=== PATIENT | male | born 1955 ===

== ENCOUNTER 2020-02-06 07:45 | Outpatient (REF) | payer OTHER, SELFPAY | END 2020-02-06 07:46 | disposition home or self-care (01) | LOC: HO.LAB 07:45 | PROVIDERS: PCP Internal Medicine; Visit Provider Internal Medicine | DX: Z20.828 Contact with and (suspected) exposure to other viral communicable diseases (principal) | CPT/HCPCS: 87635 ==

== ENCOUNTER → 2020-03-02 11:57 | Outpatient (BNVA) | payer OTHER, SELFPAY | PROVIDERS: PCP Internal Medicine; Referring Provider Internal Medicine; Visit Provider Internal Medicine | DX: I42.2 Other hypertrophic cardiomyopathy (principal); I48.0 Paroxysmal atrial fibrillation; I47.2 Ventricular tachycardia; I48.92 Unspecified atrial flutter; I10 Essential (primary) hypertension; Z86.73 Personal history of transient ischemic attack (TIA), and cerebral infarction without residual deficits; Z79.01 Long term (current) use of anticoagulants; Z45.02 Encounter for adjustment and management of automatic implantable cardiac defibrillator | CPT/HCPCS: 99212 ==

== ENCOUNTER 2020-03-20 09:42 | Outpatient (REF) | payer OTHER, SELFPAY ==
[2020-03-20 10:57] LABS: Prostate Specific Antigen 1.94 ng/mL (<0.05-4.0)
== END 2020-03-20 09:43 | disposition home or self-care (01) ==
LOC: HO.LAB 09:42
PROVIDERS: PCP Internal Medicine; Visit Provider Urology
DX: C61 Malignant neoplasm of prostate (principal)
CPT/HCPCS: 84153

== ENCOUNTER → 2020-04-03 10:04 | Outpatient (BNVA) | payer OTHER, SELFPAY | PROVIDERS: Visit Provider Urology | DX: Z76.89 Persons encountering health services in other specified circumstances (principal) ==

== ENCOUNTER → 2020-06-22 12:44 | Outpatient (BNVA) | payer OTHER, SELFPAY | PROVIDERS: PCP Internal Medicine; Visit Provider Internal Medicine | DX: I42.2 Other hypertrophic cardiomyopathy (principal); I47.2 Ventricular tachycardia; I48.92 Unspecified atrial flutter; I48.0 Paroxysmal atrial fibrillation; I10 Essential (primary) hypertension; Z98.890 Other specified postprocedural states; Z95.818 Presence of other cardiac implants and grafts; Z86.73 Personal history of transient ischemic attack (TIA), and cerebral infarction without residual deficits | CPT/HCPCS: 99212 ==

== ENCOUNTER 2020-07-01 11:42 | Outpatient (REF) | payer OTHER, SELFPAY ==
[2020-07-01 12:23] LABS: MANUAL DIFF FLAG NO
[2020-07-01 12:26] LABS: Basophils Absolute Auto 0.1 X10*3/uL (0.0-0.2); Basophils Percent Auto 0.9 % (0-2); Eosinophils Absolute Auto 0.3 X10*3/uL (0.0-0.4); Eosinophils Percent Auto 4.7 % (0-4); Hematocrit 45.6 % (42-52); Hemoglobin 14.8 g/dl (14.0-18.0); Imm Gran Abs Auto 0.01 X10*3/uL (0.00-0.03); Imm Gran Pct Auto 0.2 % (0.0-0.4); Lymphocytes Absolute Auto 1.5 X10*3/uL (1.2-4.9); Lymphocytes Percent Auto 25.8 % (20-40); Mean Corpuscular HGB Conc 32.5 g/dl (31.0-36.0); Mean Corpuscular Hemoglobin 30.2 pg (27.0-33.0); Mean Corpuscular Volume 93.1 fL (80-98); Mean Platelet Volume 10.6 fL (9.4-12.4); Monocytes Absolute Auto 0.6 X10*3/uL (0.1-1.2); Monocytes Percent Auto 9.8 % (2-11); Neutrophils Absolute Auto 3.4 X10*3/uL (2.0-8.3); Neutrophils Percent Auto 58.6 % (45-73); Platelet Count 204 X10*3/uL (160-400); Red Cell Distribution Width 13.2 % (11.0-16.0); White Blood Count 5.7 X10*3/uL (4.8-10.8)
[2020-07-01 13:16] LABS: Alanine Aminotransferase 26 U/L (0-40); Alkaline Phosphatase 55 U/L (39-117); Anion Gap 10 (12-20); Aspartate Amino Transferase 30 U/L (5-37); Bilirubin Total 1.3 mg/dL (0.0-1.0); Blood Urea Nitrogen 21 mg/dL (9-16); Calcium 9.2 mg/dL (8.4-10.2); Carbon Dioxide 27 mmol/L (22-29); Chloride 102 mmol/L (96-108); Cholesterol 177 mg/dL; Estimated Glomerular Filt Rate > 60; Glucose Fasting 94 mg/dL (60-99); HDL Cholesterol 54 mg/dL; LDL Cholesterol Calculated 108 mg/dl; Potassium 4.4 mmol/L (3.3-5.1); Sodium 135 mmol/L (135-145); Total Protein 7.3 g/dL (6.5-8.0); Triglycerides 77 mg/dL
[2020-07-01 13:36] LABS: Prostate Specific Antigen 1.44 ng/mL (<0.05-4.0)
== END 2020-07-01 11:43 | disposition home or self-care (01) ==
LOC: HO.LAB 11:42
PROVIDERS: PCP Internal Medicine; Visit Provider Urology
DX: I10 Essential (primary) hypertension (principal); R97.21 Rising PSA following treatment for malignant neoplasm of prostate; Z12.5 Encounter for screening for malignant neoplasm of prostate
CPT/HCPCS: 36415; 80053; 80061; 84153; 85025

== ENCOUNTER → 2020-07-10 11:33 | Outpatient (BNVA) | payer OTHER, SELFPAY | PROVIDERS: Visit Provider Urology ==

== ENCOUNTER → 2020-09-29 14:46 | Outpatient (REF) | payer OTHER, SELFPAY ==
--- NOTE | 2020-09-29 14:49 | CA_ITS ---
Transthoracic Echocardiogram Patient (Last, First, Middle): Andres Weiss C Gender: Male Date of : 1955 Age: 65 Procedure Date: 09/29/2020 Procedure Type: Transthoracic Echocardiogram Location: OP Height: 185.42 cm Weight: 147.42 kg BSA: 2.64 m2 Heart Rate: bpm BP: 132 / 88 mmHg Note Specialist: TRN Referring MD: Young Ramirez MD Symptoms: Z98.890 - Other specified postprocedural states Study Quality: Technically Difficult ECG Rhythm: Atrial Fibrillation Conclusions: - The left ventricular systolic function is normal. The visually estimated ejection fraction is between 60-65%. - There is mild septal asymmetric hypertrophy. - There is mild mitral valve regurgitation. Status post mitraclip placement; gradient across the mitral valve 8mmHg at 65/min; slightly elevated. - Mild pulmonary hypertension is present. Findings Left Ventricle Normal left ventricular cavity size. The left ventricular systolic function is normal. The visually estimated ejection fraction is between 60-65%. There is no evidence of regional wall motion abnormalities. Diastolic function is indeterminate on the basis of available data. There is mild septal asymmetric hypertrophy. Right Ventricle Mildly increased right ventricular cavity size. There is normal right ventricular systolic function. There is an ICD wire seen in the right ventricle. Atria The left atrium is severely dilated. The right atrium is mildly dilated. Aortic Valve There is a normal trileaflet aortic valve. There is mild calcification of the aortic valve. There is no aortic valve stenosis. There is no aortic valve regurgitation. Mitral Valve There is mild mitral valve regurgitation. Status post mitraclip placement; gradient across the mitral valve 8mmHg at 65/min; slightly elevated. Pulmonic Valve The pulmonic valve was not well visualized. Tricuspid Valve There is trace tricuspid valve regurgitation. Mild pulmonary hypertension is present. Great Vessels The aortic annulus, sinuses of valsalva, and asc aorta are normal in size. Venous The inferior vena cava is mildly dilated and collapses greater than 50% with inspiration. Pericardium/Pleural There is no evidence of pericardial effusion. Prior Study Comparison Changes noted compared to prior study dated: 02/15/2019. s/p monica-clip. Improved RVSP. Measurements M-Mode Liner Measurements Normals - Women/Men AOV Cusps: 2.40 1.5-2.6 cm/m2 2D Linear Measurements IVSd: 1.00 0.6-0.9/0.6-1.0 cm LVIDd: 6.06 3.9-5.3/4.2-5.9 cm LVIDd Index: 2.30 2.4-3.2/2.2-3.1 cm/m2 LVIDs: 3.43 2.0-3.6 cm LVPWd: 0.92 0.7-1.1 cm Ao Root: 3.80 2.1-3.5 cm LA Diam: 6.30 2.7-3.8/3.0-4.0 cm LAIDs Index: 2.39 1.5-2.3 cm/m2 LV Mass: 296.45 67-162/88-224 g LV Mass Index: 112.29 43-95/49-115 g/m2 LVOT Diam: 2.40 3.0+(-)1.3 cm 2D Systolic Function EF 4C: 57.90 >55% EF 2C: 55.10 >55% EF BiP: 55.40 >55% Mitral Valve MV VTI: 0.67 MV Pk Bogdan: 2.43 MV Mn Bogdan: 1.18 MV Pk Grad: 24.00 MV Mn Grad: 8.00 MV Pk E: 2.05 MV Decel Time: 440.00 PHT: 129.00 MVA PHT: 1.71 MVA Continuity: 1.45 Decel [place]: 4.66 Aortic Valve AoV Pk Bogdan: 1.33 AoV Mn Bogdan: 1.03 AoV VTI: 0.31 AoV Pk Grad: 7.00 Aov Mn Grad: 5.00 DENG Cont.VTI: 3.14 LVOT LVOT Pk Bogdan: 0.96 LVOT Mn Bogdan: 0.67 LVOT VTI: 0.21 LVOT Pk Grad: 4.00 LVOT Mn Grad: 2.00 LVOT Diam: 2.40 LVOT Area: 4.52 Diastolic Function MV Pk E: 2.05 Tricuspid Valve TR Pk Bogdan: 2.66 TR Pk Grad: 28.00 RA Press: 8.00 RVSP: 36.00 Great Vessels Aorta Ao Root-2D: 3.80 2.0-3.7 cm Ao Asc: 3.50 2.1-3.4 cm Ao Arch: 3.30 Pulmonary Valve PV Pk Bogdan: 0.94 Peak PV Grad: 4.00 Updated in Other Vendor System with Status of Final Young Ramirez MD electronically signed on 09/30/2020 12:06:13 PM with status of Final
== END ==
LOC: HO.CARD 14:46
PROVIDERS: Visit Provider Internal Medicine
DX: Z95.818 Presence of other cardiac implants and grafts (principal); Z98.890 Other specified postprocedural states
CPT/HCPCS: 93306

== ENCOUNTER 2020-11-30 11:55 | Outpatient (REF) | payer OTHER, SELFPAY ==
[2020-11-30 14:03] LABS: Prostate Specific Antigen 2.59 ng/mL (<0.05-4.0)
== END 2020-11-30 11:56 | disposition home or self-care (01) ==
LOC: HO.LAB 11:55
PROVIDERS: PCP Internal Medicine; Visit Provider Urology
DX: Z12.5 Encounter for screening for malignant neoplasm of prostate (principal); C61 Malignant neoplasm of prostate; I42.2 Other hypertrophic cardiomyopathy; I47.2 Ventricular tachycardia; I48.92 Unspecified atrial flutter; I48.0 Paroxysmal atrial fibrillation; I10 Essential (primary) hypertension; G47.33 Obstructive sleep apnea (adult) (pediatric); Z86.73 Personal history of transient ischemic attack (TIA), and cerebral infarction without residual deficits; Z95.818 Presence of other cardiac implants and grafts; Z98.890 Other specified postprocedural states
CPT/HCPCS: 36415; 84153; 93005; 99212

== ENCOUNTER 2020-12-11 08:38 | Day surgery (SDC) | payer OTHER, SELFPAY ==
[2020-12-03 20:41] VITALS: BMI 41.5
--- NOTE | 2020-12-08 10:25 | HO.ANESPROP2 ---
Documented by User: Shefali Valero 12/08/20 10:28 HPI - Anesthesia Eval Consult details Narrative: 65yo M for Cardioversion Eliquis for afib ICD in situ PMFSH Active Problems Active Problems: All Active Problems (Updated 12/03/20 @ 14:07 by Barbara Peterson MD) Morbid obesity (Acute) Opiate dependence (Acute) AXEL (obstructive sleep apnea) (Acute) Rising PSA following treatment for malignant neoplasm of prostate (Acute) Lumbar degenerative disc disease (Acute) PAF (paroxysmal atrial fibrillation) (Acute) Essential hypertension (Acute) History of stroke (Acute) Paroxysmal atrial flutter (Acute) Ventricular tachyarrhythmia (Acute) Status post implantation of mitral valve leaflet clip (Acute) Hypertrophic cardiomyopathy (Acute) Past Medical History Medical History Essential hypertension History of stroke Hypertrophic cardiomyopathy Lumbar degenerative disc disease Morbid obesity Opiate dependence AXEL (obstructive sleep apnea) PAF (paroxysmal atrial fibrillation) Paroxysmal atrial flutter Ventricular tachyarrhythmia Family History Family History Father Diabetes Mother No problems noted. Surgical History Surgical History History of cardiac catheterization History of cardiac pacemaker (~03/2014) Status post implantation of mitral valve leaflet clip Social History Social History Housing: Apartment Alcohol intake: current Alcohol intake frequency: holidays/special occasions only Alcohol type: hard liquor Patient Tobacco Use Status: Never used Tobacco e-Cigarette/Vaping Use: Never Used Second Hand Smoke Exposure: No Use of substances other than those prescribed or required for medical reasons: No Are you DNR?: No Advance Directives: No Advance Directives Information Provided: No Advance Directives on File: No service: No Current occupational status: unemployed Meds Allergies Allergy/AdvReac Type Severity Reaction Status Date / Time No Known Allergies Allergy Verified 12/11/20 08:50 [No Known Allergies*] Home Medications Medication Instructions Recorded Confirmed Last Taken Type aspirin 81 mg tablet,delayed 81 mg PO DAILY 03/02/20 12/03/20 12/11/20 07:50 History release Exam Exam Date and Time: December 08, 2020 1025 Height,Weight and Vital Signs: Height 6 ft 1 in Weight 142.882 kg Narrative Narrative: EKG 11/2020 atrial flutter with a ventricular rate of 62/Min ICD Interr 11/2020 This is single-chamber device.? Programmed in VVI.? Battery life greater than 3 years.? No therapies delivered.? Ventricular pacing about 4.5%.? There are episodes labeled as SVT and nonsustained with rapid rates which are probably atrial flutter with rapid rates.? Cannot exclude other atrial arrhythmias.? Rates are in the 150s.? Overall, normal ICD function. ECHO 09/2020 Conclusions: - The left ventricular systolic function is normal.? The visually estimated ejection fraction is between 60-65%. ? - There is mild septal asymmetric hypertrophy. ? - There is mild mitral valve regurgitation.? Status post ? mitraclip placement; gradient across the mitral valve 8mmHg at ? 65/min; slightly elevated. ? - Mild pulmonary hypertension is present.? ? ? Assessment and Plan Assessment Anesthesia Assessment: Chart Reviewed Documented by User: Farheen Mckeon MD 12/11/20 09:55 [facility] Past Medical History Medical History Essential hypertension History of stroke Hypertrophic cardiomyopathy Lumbar degenerative disc disease Morbid obesity Opiate dependence AXEL (obstructive sleep apnea) PAF (paroxysmal atrial fibrillation) Paroxysmal atrial flutter Ventricular tachyarrhythmia Family History Family History Father Diabetes Mother No problems noted. Family history of problems with anesthesia: No Surgical History Surgical History History of cardiac catheterization History of cardiac pacemaker (~03/2014) Status post implantation of mitral valve leaflet clip History of Problems with Anesthesia: No Social History Social History Housing: Apartment Alcohol intake: current Alcohol intake frequency: holidays/special occasions only Alcohol type: hard liquor Patient Tobacco Use Status: Never used Tobacco e-Cigarette/Vaping Use: Never Used Second Hand Smoke Exposure: No Use of substances other than those prescribed or required for medical reasons: No Are you DNR?: No Advance Directives: No Advance Directives Information Provided: No Advance Directives on File: No service: No Current occupational status: unemployed Meds Allergies Allergy/AdvReac Type Severity Reaction Status Date / Time No Known Allergies Allergy Verified 12/11/20 08:50 [No Known Allergies*] Home Medications Medication Instructions Recorded Confirmed Last Taken Type aspirin 81 mg tablet,delayed 81 mg PO DAILY 03/02/20 12/03/20 12/11/20 07:50 History release Exam Airway Mallampati Class: III TM Dist: >3cm Neck ROM: Full Assessment and Plan Assessment Anesthesia Assessment: Anesthesia Plan Discussed Final Anesthetic Review Family History of Problems with Anesthesia: No History of Problems with Anesthesia: No NPO: Yes ASA Class: III Final Preanesthetic Review: No Changes in Pt Med Stat, Meds/Allgs Chart Reviewed, Consent Obtained/Reviewed and Anes Risks/Benef Reviewed Patient Risk: Intermediate Procedure Risk: Low Assessment/Block/Sedation in SS: Assess/Block/Sedation-SS Anesthetic Plan Anesthetic Plan: MAC: Disposition: Standard PACU
--- NOTE | 2020-12-11 | ECG_ITS ---
Test Reason : POST CARDIOVERSION Blood Pressure : / mmHG Vent. Rate : 049 BPM Atrial Rate : 049 BPM P-R Int : 332 ms QRS Dur : 118 ms QT Int : 532 ms P-R-T Axes : 006 071 058 degrees QTc Int : 480 ms Sinus bradycardia with marked sinus arrhythmia with 1st degree A-V block Abnormal ECG When compared with ECG of 11-DEC-2020 09:09, Rhythm change Referred By: Myranda Garnica Electronically Signed By:MYRANDA GARNICA
[2020-12-11 07:28] LABS: MANUAL DIFF FLAG NO
[2020-12-11 07:33] LABS: Basophils Absolute Auto 0.1 X10*3/uL (0.0-0.2); Basophils Percent Auto 0.8 % (0-2); Eosinophils Absolute Auto 0.4 X10*3/uL (0.0-0.4); Eosinophils Percent Auto 6.5 % (0-4); Hematocrit 41.4 % (42-52); Hemoglobin 13.3 g/dl (14.0-18.0); Imm Gran Abs Auto 0.01 X10*3/uL (0.00-0.03); Imm Gran Pct Auto 0.2 % (0.0-0.4); Lymphocytes Percent Auto 30.2 % (20-40); Mean Corpuscular HGB Conc 32.1 g/dl (31.0-36.0); Mean Corpuscular Volume 93.2 fL (80-98); Mean Platelet Volume 10.2 fL (9.4-12.4); Monocytes Absolute Auto 0.6 X10*3/uL (0.1-1.2); Monocytes Percent Auto 9.3 % (2-11); Neutrophils Absolute Auto 3.4 X10*3/uL (2.0-8.3); Platelet Count 212 X10*3/uL (160-400); Red Blood Count 4.44 X10*6/uL (4.60-5.80); Red Cell Distribution Width 13.2 % (11.0-16.0); White Blood Count 6.5 X10*3/uL (4.8-10.8)
[2020-12-11 07:58] LABS: Alanine Aminotransferase 23 U/L (0-40); Albumin Level 3.9 g/dL (3.5-5.0); Alkaline Phosphatase 60 U/L (39-117); Anion Gap 12 (12-20); Aspartate Amino Transferase 24 U/L (5-37); Bilirubin Total 1.5 mg/dL (0.0-1.0); Blood Urea Nitrogen 17 mg/dL (9-16); Calcium 9.5 mg/dL (8.4-10.2); Carbon Dioxide 28 mmol/L (22-29); Chloride 103 mmol/L (96-108); Cholesterol 154 mg/dL; Estimated Glomerular Filt Rate > 60; Glucose Fasting 99 mg/dL (60-99); HDL Cholesterol 46 mg/dL; LDL Cholesterol Calculated 96 mg/dl; Potassium 4.3 mmol/L (3.3-5.1); Sodium 139 mmol/L (135-145); Total Protein 7.8 g/dL (6.5-8.0); Triglycerides 64 mg/dL
--- NOTE | 2020-12-11 09:07 | ECG_ITS ---
Test Reason : PREOP Blood Pressure : / mmHG Vent. Rate : 049 BPM Atrial Rate : 037 BPM P-R Int : 000 ms QRS Dur : 108 ms QT Int : 516 ms P-R-T Axes : 000 075 054 degrees QTc Int : 466 ms Atrial flutter with variable block Abnormal ECG When compared with ECG of 24-OCT-2017 15:34, Rhythm change Referred By: Farheen Mckeon Electronically Signed By:MYRANDA GARNICA
--- NOTE | 2020-12-11 09:24 | MHC.SHP ---
Pre-Procedural Eval Section A Date of Service: 12/11/20 The patient is an INPATIENT: No Section B Chief Complaint: A-Fib, Labs Allergies: Allergies Allergy/AdvReac Type Severity Reaction Status Date / Time No Known Allergies Allergy Verified 12/11/20 08:50 [No Known Allergies*] Plan I have reviewed the history and physical and performed a pertinent physical examination on my patient. No changes have occurred unless specified.
[2020-12-11 09:46] VITALS: BP 133/79; PULSE 47; RESP 16; TEMP 36.7; O2SAT 99
[2020-12-11] MEDS: Lactated Ringers 500 ML 20 ML IVCONT (09:53)
--- NOTE | 2020-12-11 09:53 | PC.NURSE ---
Patient here for Cardioversion for Afib. Question of rhythm strip in preop. Rhythm did not look like Afib or Flutter. Dr. Mckeon notified and ordered an EKG. EKG interpretation showed that patient was in Afib. Dr. Ramirez at bedside and viewed EKG and live monitor. To proceed with procedure.
[2020-12-11 10:05] VITALS: BP 115/63; PULSE 51; RESP 20; TEMP 36.4; O2SAT 100
[2020-12-11 10:10] VITALS: BP 113/55; PULSE 49; RESP 18; O2SAT 100
[2020-12-11 10:15] VITALS: BP 100/54; PULSE 45; RESP 20; O2SAT 100
[2020-12-11 10:20] VITALS: BP 112/64; PULSE 52; RESP 20; O2SAT 100
[2020-12-11 10:35] VITALS: BP 116/65; PULSE 54; RESP 20; TEMP 36.4; O2SAT 100
--- NOTE | 2020-12-11 10:37 | HO.CARDIVERS ---
Cardioversion Procedure Note Cardioversion Date of Procedure: 12/11/2020 Ordering Provider: Dr. Ramirez Performing Provider: Dr. Ramirez Indication for Procedure: Atrial flutter/hypertrophic cardiomyopathy/mitral regurgitation Pre-Op Diagnosis: Atrial flutter Post-Op Diagnosis: Sinus rhythm Performed with Transesophageal Echo: No History: Atrial flutter, rapid rates seen on recent device check. Hence referred for cardioversion. Consent: Informed consent obtained. Procedure: After informed consent was obtained, patient was taken to the PACU. The patient was then positioned appropriately. The cardioversion pads were placed in anteroposterior position. Once under anesthesia, 120 joules of synchronized shock was administered. The rhythm converted from atrial flutter to sinus rhythm. Patient remained in sinus rhythm after the end of procedure. Complications: None Impression: Successful cardioversion Recommendations: Continue current dose of atenolol and verapamil.
[2020-12-16 15:56] LABS: Vitamin D 25-OH, D2 <4 ng/mL; Vitamin D 25-OH, D3 32 ng/mL; Vitamin D 25-OH, Total 32 ng/mL (30-100)
== END 2020-12-11 11:19 | disposition home or self-care (01) ==
PROVIDERS: Absent Provider Internal Medicine; PCP Internal Medicine; Visit Provider Internal Medicine
PROC: 5A2204Z Restoration of Cardiac Rhythm, Single (ICD-10-PCS; principal; 2020-12-11 10:00)
DX: I48.92 Unspecified atrial flutter (principal); Z79.01 Long term (current) use of anticoagulants; I34.0 Nonrheumatic mitral (valve) insufficiency; I42.2 Other hypertrophic cardiomyopathy; I10 Essential (primary) hypertension; Z95.0 Presence of cardiac pacemaker; Z86.73 Personal history of transient ischemic attack (TIA), and cerebral infarction without residual deficits; Z79.82 Long term (current) use of aspirin; Z79.899 Other long term (current) drug therapy
CPT/HCPCS: 36415; 80053; 80061; 82306; 85025; 92960; 93005

== ENCOUNTER → 2020-12-15 13:19 | Outpatient (BNVA) | payer OTHER, SELFPAY | PROVIDERS: Visit Provider Urology ==

== ENCOUNTER → 2020-12-16 13:30 | Outpatient (REF) | payer OTHER, SELFPAY | LOC: HO.SL 13:30 | PROVIDERS: PCP Internal Medicine; Visit Provider Internal Medicine | DX: G47.33 Obstructive sleep apnea (adult) (pediatric) (principal) | CPT/HCPCS: 95806 ==

== ENCOUNTER → 2021-01-05 11:51 | Outpatient (BNVA) | payer OTHER, SELFPAY | PROVIDERS: PCP Internal Medicine; Referring Provider Internal Medicine; Visit Provider Internal Medicine | DX: I42.2 Other hypertrophic cardiomyopathy (principal); I47.2 Ventricular tachycardia; I48.0 Paroxysmal atrial fibrillation; I48.92 Unspecified atrial flutter; I10 Essential (primary) hypertension; G47.33 Obstructive sleep apnea (adult) (pediatric); Z98.890 Other specified postprocedural states; Z86.73 Personal history of transient ischemic attack (TIA), and cerebral infarction without residual deficits; Z45.02 Encounter for adjustment and management of automatic implantable cardiac defibrillator | CPT/HCPCS: 93005; 99212 ==

== ENCOUNTER 2021-03-09 06:46 | Outpatient (REF) | payer OTHER, SELFPAY ==
[2021-03-09 08:38] LABS: Alanine Aminotransferase 28 U/L (0-40); Albumin Level 4.2 g/dL (3.5-5.0); Alkaline Phosphatase 52 U/L (39-117); Anion Gap 14 (12-20); Aspartate Amino Transferase 29 U/L (5-37); Bilirubin Total 2.8 mg/dL (0.0-1.0); Blood Urea Nitrogen 18 mg/dL (9-16); Calcium 9.4 mg/dL (8.4-10.2); Carbon Dioxide 25 mmol/L (22-29); Chloride 104 mmol/L (96-108); Cholesterol 177 mg/dL; Estimated Glomerular Filt Rate > 60; Glucose Fasting 101 mg/dL (60-99); HDL Cholesterol 47 mg/dL; LDL Cholesterol Calculated 116 mg/dl; Sodium 139 mmol/L (135-145); Total Protein 7.6 g/dL (6.5-8.0); Triglycerides 71 mg/dL
[2021-03-09 09:00] LABS: Prostate Specific Antigen 2.55 ng/mL (<0.05-4.0)
== END 2021-03-09 06:47 | disposition home or self-care (01) ==
LOC: HO.LAB 06:46
PROVIDERS: Absent Provider Urology; PCP Internal Medicine; Visit Provider Internal Medicine
DX: N40.1 Benign prostatic hyperplasia with lower urinary tract symptoms (principal); N13.8 Other obstructive and reflux uropathy; E78.5 Hyperlipidemia, unspecified; I10 Essential (primary) hypertension
CPT/HCPCS: 36415; 80053; 80061; 84153

== ENCOUNTER → 2021-03-23 11:18 | Outpatient (BNVA) | payer OTHER, SELFPAY | PROVIDERS: PCP Internal Medicine; Visit Provider Urology ==

== ENCOUNTER 2021-07-05 06:45 | Outpatient (REF) | payer MEDICARE, MEDICAID, SELFPAY ==
[2021-07-05 08:04] LABS: Prostate Specific Antigen 4.27 ng/mL (<0.05-4.0)
== END 2021-07-05 06:46 | disposition home or self-care (01) ==
LOC: HO.LAB 06:45
PROVIDERS: PCP Internal Medicine; Visit Provider Urology
DX: Z12.5 Encounter for screening for malignant neoplasm of prostate (principal); C61 Malignant neoplasm of prostate
CPT/HCPCS: 36415; 84153

== ENCOUNTER → 2021-07-28 08:38 | Outpatient (BNVA) | payer MEDICARE, MEDICAID, SELFPAY | PROVIDERS: PCP Internal Medicine; Visit Provider Urology | DX: R97.21 Rising PSA following treatment for malignant neoplasm of prostate (principal); C61 Malignant neoplasm of prostate | CPT/HCPCS: Q3014 ==

== ENCOUNTER 2021-09-13 10:52 | Outpatient (REF) | payer MEDICARE, MEDICAID, SELFPAY ==
[2021-09-13 11:12] LABS: MANUAL DIFF FLAG NO
[2021-09-13 11:46] LABS: Basophils Percent Auto 0.5 % (0-2); Eosinophils Absolute Auto 0.2 X10*3/uL (0.0-0.4); Eosinophils Percent Auto 2.9 % (0-4); Hematocrit 40.8 % (42.0-52.0); Hemoglobin 13.2 g/dl (14.0-18.0); Imm Gran Abs Auto 0.02 X10*3/uL (0.00-0.03); Imm Gran Pct Auto 0.3 % (0.0-0.4); Lymphocytes Percent Auto 16.7 % (20-40); Mean Corpuscular HGB Conc 32.4 g/dl (31.0-36.0); Mean Corpuscular Hemoglobin 29.5 pg (27.0-33.0); Mean Corpuscular Volume 91.1 fL (80.0-98.0); Mean Platelet Volume 9.7 fL (9.4-12.4); Monocytes Absolute Auto 0.6 X10*3/uL (0.1-1.2); Monocytes Percent Auto 10.3 % (2-11); Neutrophils Absolute Auto 4.3 x10*3/uL (2.0-8.3); Neutrophils Percent Auto 69.3 % (45-73); Platelet Count 209 X10*3/uL (160-400); Red Blood Count 4.48 X10*6/uL (4.60-5.80); Red Cell Distribution Width 13.6 % (11.0-16.0); White Blood Count 6.2 X10*3/uL (4.8-10.8)
[2021-09-13 12:17] LABS: Alanine Aminotransferase 26 U/L (0-40); Albumin Level 3.6 g/dL (3.5-5.0); Alkaline Phosphatase 55 U/L (39-117); Anion Gap 9 (12-20); Aspartate Amino Transferase 27 U/L (5-37); Bilirubin Total 2.2 mg/dL (0.0-1.0); Blood Urea Nitrogen 16 mg/dL (9-16); Calcium 8.9 mg/dL (8.4-10.2); Carbon Dioxide 26 mmol/L (22-29); Chloride 106 mmol/L (96-108); Cholesterol 139 mg/dL; Estimated Glomerular Filt Rate > 60; Glucose Fasting 89 mg/dL (60-99); HDL Cholesterol 42 mg/dL; LDL Cholesterol Calculated 85 mg/dl; Potassium 4.2 mmol/L (3.3-5.1); Sodium 137 mmol/L (135-145); Total Protein 6.8 g/dL (6.5-8.0); Triglycerides 60 mg/dL
[2021-09-13 12:36] LABS: Prostate Specific Antigen 3.51 ng/mL (<0.05-4.0)
== END 2021-09-13 10:53 | disposition home or self-care (01) ==
LOC: HO.LAB 10:52
PROVIDERS: PCP Internal Medicine; Visit Provider Urology
DX: Z12.5 Encounter for screening for malignant neoplasm of prostate (principal); E78.5 Hyperlipidemia, unspecified; I48.0 Paroxysmal atrial fibrillation; D64.9 Anemia, unspecified; R97.21 Rising PSA following treatment for malignant neoplasm of prostate
CPT/HCPCS: 36415; 80053; 80061; 84153; 85025

== ENCOUNTER → 2021-09-29 08:43 | Outpatient (BNVA) | payer MEDICARE, MEDICAID, SELFPAY | PROVIDERS: PCP Internal Medicine; Visit Provider Urology | DX: C61 Malignant neoplasm of prostate (principal); R97.21 Rising PSA following treatment for malignant neoplasm of prostate | CPT/HCPCS: Q3014 ==

== ENCOUNTER → 2021-10-04 12:58 | Outpatient (BNVA) | payer MEDICARE, MEDICAID, SELFPAY | PROVIDERS: PCP Internal Medicine; Referring Provider Internal Medicine; Visit Provider Internal Medicine | DX: Z45.02 Encounter for adjustment and management of automatic implantable cardiac defibrillator (principal); I42.2 Other hypertrophic cardiomyopathy; I47.2 Ventricular tachycardia; I48.92 Unspecified atrial flutter; I48.0 Paroxysmal atrial fibrillation; I10 Essential (primary) hypertension; G47.33 Obstructive sleep apnea (adult) (pediatric); Z98.890 Other specified postprocedural states; Z95.818 Presence of other cardiac implants and grafts; Z86.73 Personal history of transient ischemic attack (TIA), and cerebral infarction without residual deficits | CPT/HCPCS: 93005; 99212 ==

== ENCOUNTER → 2021-10-21 14:39 | Outpatient (BNVA) | payer MEDICARE, MEDICAID, SELFPAY | PROVIDERS: PCP Internal Medicine; Visit Provider Internal Medicine | DX: G47.33 Obstructive sleep apnea (adult) (pediatric) (principal); E66.01 Morbid (severe) obesity due to excess calories; Z68.41 Body mass index [BMI] 40.0-44.9, adult | CPT/HCPCS: 99202 ==

== ENCOUNTER 2021-11-10 07:41 | Outpatient (REF) | payer MEDICARE, MEDICAID, SELFPAY ==
[2021-11-10 08:53] LABS: Blood Urea Nitrogen 26 mg/dL (9-16); Estimated Glomerular Filt Rate > 60
[2021-11-10 09:17] LABS: PSA,Total (Free>4and<10) 3.07 ng/mL (0.00-4.00)
== END 2021-11-10 07:42 | disposition home or self-care (01) ==
LOC: HO.LAB 07:41
PROVIDERS: PCP Internal Medicine; Visit Provider Urology
DX: Z12.5 Encounter for screening for malignant neoplasm of prostate (principal); R97.21 Rising PSA following treatment for malignant neoplasm of prostate; C61 Malignant neoplasm of prostate; R39.15 Urgency of urination
CPT/HCPCS: 36415; 82565; 84153; 84520

== ENCOUNTER → 2021-11-11 12:38 | Outpatient (REF) | payer MEDICARE, MEDICAID, SELFPAY | LOC: HO.SL 12:38 | PROVIDERS: PCP Internal Medicine; Visit Provider Internal Medicine Pulmonary Disease | DX: G47.33 Obstructive sleep apnea (adult) (pediatric) (principal); R40.0 Somnolence; E66.01 Morbid (severe) obesity due to excess calories | CPT/HCPCS: 95806 ==

== ENCOUNTER → 2021-11-15 12:41 | Outpatient (REF) | payer MEDICARE, MEDICAID, SELFPAY ==
--- NOTE | 2021-11-15 12:46 | CA_ITS ---
Transthoracic Echocardiogram Patient (Last, First, Middle): Andres Weiss C Gender: Male Date of : 1955 Age: 66 Procedure Date: 11/15/2021 Procedure Type: Transthoracic Echocardiogram Location: OP Height: 182.88 cm Weight: 140.62 kg BSA: 2.57 m2 Heart Rate: 56 bpm BP: 112 / 70 mmHg Inside Phone Sales: SB Referring MD: Young Ramirez MD Balance Assembler: Santiago Martinez MD Symptoms: Z98.890 - Other specified postprocedural states Study Quality: Fair ECG Rhythm: Atrial Fibrillation Conclusions: - 1. Moderately dilated left ventricle with normal LV ejection fraction 55-60% 2. Biatrial enlargement with severe left atrial enlargement and moderate right atrial enlargement 3. [id number] mitral regurgitation with increased gradient across the mitral valve consistent with MitraClip. 4. Mildly elevated right ventricular systolic pressure 5. Mild aortic regurgitation 6. No gross pericardial effusion Findings Procedure Information Contrast agent, definity, is being given per protocol without apparent complications. Left Ventricle Moderately increased left ventricular cavity size. The left ventricular systolic function is normal. The visually estimated ejection fraction is between 55-60%. Diastolic function is indeterminate on the basis of available data. Right Ventricle Moderately increased right ventricular cavity size. There is borderline right ventricular systolic function. There is a pacemaker wire seen in the right ventricle. Atria The left atrium is severely dilated. The right atrium is moderately dilated. Aortic Valve There is mild thickening of the aortic valve. There is no aortic valve stenosis. There is mild aortic valve regurgitation. Mitral Valve There is severe anterior and posterior mitral leaflet thickening. The anterior mitral leaflet has restricted mobility and the posterior mitral leaflet has restricted mobility. There is mild to moderate mitral valve regurgitation. increased gradient across the mitral valve related to reported MitraClip. Pulmonic Valve The pulmonic valve was not well visualized. Tricuspid Valve Normal tricuspid valve structure. There is mild tricuspid valve regurgitation. Normal right atrial pressure. Mild pulmonary hypertension is present. Great Vessels All visible segments of the aorta are normal in size. The pulmonary artery was not well visualized. Venous The inferior vena cava is normal in size and collapses greater than 50% with inspiration. Pericardium/Pleural There is no evidence of pericardial effusion. Prior Study Comparison Changes noted compared to prior study dated: 09/29/2020. [id number] mitral regurgitation which appears to be worse than before. Mitral stenosis cannot be entirely ruled out Recommendations, Care & Conclusions Consider a NEELIMA if clinically appropriate. Measurements 2D Linear Measurements IVSd: 1.46 0.6-0.9/0.6-1.0 cm LVIDd: 6.45 3.9-5.3/4.2-5.9 cm LVIDd Index: 2.51 2.4-3.2/2.2-3.1 cm/m2 LVIDs: 3.82 2.0-3.6 cm LVPWd: 0.81 0.7-1.1 cm LA Diam: 6.80 2.7-3.8/3.0-4.0 cm LAIDs Index: 2.65 1.5-2.3 cm/m2 LV Mass: 410.98 67-162/88-224 g LV Mass Index: 159.92 43-95/49-115 g/m2 LVOT Diam: 2.40 3.0+(-)1.3 cm 2D Systolic Function EF 4C: 58.30 >55% EF 2C: 52.10 >55% EF BiP: 54.60 >55% Mitral Valve MV VTI: 0.52 MV Pk Bogdan: 2.01 MV Mn Bogdan: 0.93 MV Pk Grad: 16.00 MV Mn Grad: 5.00 MVA Continuity: 1.60 Aortic Valve AoV Pk Bogdan: 1.09 AoV Mn Bogdan: 0.72 AoV VTI: 0.21 AoV Pk Grad: 5.00 Aov Mn Grad: 2.00 DENG Cont.VTI: 3.88 LVOT LVOT Pk Bogdan: 0.91 LVOT Mn Bogdan: 0.60 LVOT VTI: 0.18 LVOT Pk Grad: 3.00 LVOT Mn Grad: 2.00 LVOT Diam: 2.40 LVOT Area: 4.52 Right Ventricle TAPSE (mm): 17.10 TVS' Bogdan: 9.00 Tricuspid Valve TR Pk Bogdan: 3.07 TR Pk Grad: 38.00 RA Press: 3.00 RVSP: 41.00 Great Vessels Aorta Sinus of Valsalva: 3.40 2.0-3.5 cm Ao Asc: 3.60 2.1-3.4 cm Pulmonary Veins Pulm Vein S/D 1.30 Pulmonary Valve PV Pk Bogdan: 0.70 Peak PV Grad: 2.00 Updated in Other Vendor System with Status of Final Santiago Martinez MD electronically signed on 11/16/2021 12:00:11 PM with status of Final
== END ==
LOC: HO.CARD 12:41
PROVIDERS: PCP Internal Medicine; Visit Provider Internal Medicine
DX: I42.2 Other hypertrophic cardiomyopathy (principal); Z98.890 Other specified postprocedural states
CPT/HCPCS: 93306; Q9957

== ENCOUNTER → 2021-11-25 08:31 | Outpatient (BNVA) | payer MEDICARE, MEDICAID, SELFPAY | PROVIDERS: PCP Internal Medicine; Visit Provider Urology | DX: C61 Malignant neoplasm of prostate (principal) | CPT/HCPCS: Q3014 ==

== ENCOUNTER → 2021-12-07 13:16 | Outpatient (BNVA) | payer MEDICARE, MEDICAID, SELFPAY | PROVIDERS: PCP Internal Medicine; Visit Provider Urology | DX: R97.21 Rising PSA following treatment for malignant neoplasm of prostate (principal); N40.1 Benign prostatic hyperplasia with lower urinary tract symptoms; N13.8 Other obstructive and reflux uropathy; R33.9 Retention of urine, unspecified | CPT/HCPCS: 96402; J9217 ==

== ENCOUNTER → 2022-01-17 14:32 | Outpatient (BNVA) | payer MEDICARE, MEDICAID, SELFPAY | PROVIDERS: PCP Internal Medicine; Visit Provider Internal Medicine | DX: I42.2 Other hypertrophic cardiomyopathy (principal); I47.2 Ventricular tachycardia; I48.19 Other persistent atrial fibrillation; I10 Essential (primary) hypertension; G47.33 Obstructive sleep apnea (adult) (pediatric); Z79.82 Long term (current) use of aspirin; Z86.73 Personal history of transient ischemic attack (TIA), and cerebral infarction without residual deficits; Z95.1 Presence of aortocoronary bypass graft; Z95.2 Presence of prosthetic heart valve; Z95.818 Presence of other cardiac implants and grafts | CPT/HCPCS: 99212 ==

== ENCOUNTER → 2022-01-24 09:46 | Outpatient (BNVA) | payer MEDICARE, MEDICAID, SELFPAY | PROVIDERS: PCP Internal Medicine; Visit Provider Internal Medicine | DX: Z95.2 Presence of prosthetic heart valve (principal); Z79.01 Long term (current) use of anticoagulants; Z51.81 Encounter for therapeutic drug level monitoring | CPT/HCPCS: 85610; 99202 ==

== ENCOUNTER → 2022-01-28 10:16 | Outpatient (BNVA) | payer MEDICARE, MEDICAID, SELFPAY | PROVIDERS: PCP Internal Medicine; Visit Provider Internal Medicine | DX: Z95.2 Presence of prosthetic heart valve (principal); Z79.01 Long term (current) use of anticoagulants; Z51.81 Encounter for therapeutic drug level monitoring | CPT/HCPCS: 85610; 99211 ==

== ENCOUNTER → 2022-02-02 10:28 | Outpatient (BNVA) | payer MEDICARE, MEDICAID, SELFPAY | PROVIDERS: PCP Internal Medicine; Visit Provider Internal Medicine | DX: Z95.2 Presence of prosthetic heart valve (principal); Z79.01 Long term (current) use of anticoagulants; Z51.81 Encounter for therapeutic drug level monitoring | CPT/HCPCS: 85610; 99211 ==

== ENCOUNTER → 2022-02-04 12:43 | Outpatient (REF) | payer MEDICARE, MEDICAID, SELFPAY | LOC: HO.CARD 12:43 | PROVIDERS: Visit Provider Internal Medicine Cardiovascular Disease | DX: Z95.2 Presence of prosthetic heart valve (principal) | CPT/HCPCS: 93306 ==

== ENCOUNTER 2022-02-08 06:26 | Outpatient (REF) | payer MEDICARE, MEDICAID, SELFPAY ==
[2022-02-08 06:47] LABS: MANUAL DIFF FLAG NO
[2022-02-08 07:27] LABS: Basophils Absolute Auto 0.1 X10*3/uL (0.0-0.2); Basophils Percent Auto 1.1 % (0-2); Eosinophils Absolute Auto 0.8 X10*3/uL (0.0-0.4); Eosinophils Percent Auto 14.7 % (0-4); Hematocrit 34.1 % (42.0-52.0); Hemoglobin 10.4 g/dl (14.0-18.0); INTERNATIONAL NORM RATIO 3.4 (0.9-1.1); Imm Gran Abs Auto 0.01 X10*3/uL (0.00-0.03); Imm Gran Pct Auto 0.2 % (0.0-0.4); Lymphocytes Percent Auto 18.4 % (20-40); Mean Corpuscular HGB Conc 30.5 g/dl (31.0-36.0); Mean Corpuscular Hemoglobin 28.8 pg (27.0-33.0); Mean Corpuscular Volume 94.5 fL (80.0-98.0); Mean Platelet Volume 10.2 fL (9.4-12.4); Monocytes Absolute Auto 0.5 X10*3/uL (0.1-1.2); Monocytes Percent Auto 9.6 % (2-11); Platelet Count 313 X10*3/uL (160-400); Prothrombin Time 40.6 SEC (10.0-13.1); Red Blood Count 3.61 X10*6/uL (4.60-5.80); Red Cell Distribution Width 13.7 % (11.0-16.0); White Blood Count 5.4 X10*3/uL (4.8-10.8)
[2022-02-08 08:12] LABS: Alanine Aminotransferase 31 U/L (0-40); Albumin Level 3.9 g/dL (3.5-5.0); Alkaline Phosphatase 67 U/L (39-117); Anion Gap 15 (12-20); Aspartate Amino Transferase 37 U/L (5-37); Bilirubin Total 1.1 mg/dL (0.0-1.0); Blood Urea Nitrogen 20 mg/dL (9-16); Calcium 9.3 mg/dL (8.4-10.2); Carbon Dioxide 26 mmol/L (22-29); Chloride 104 mmol/L (96-108); Cholesterol 126 mg/dL; Estimated Glomerular Filt Rate > 60; Glucose Fasting 105 mg/dL (60-99); HDL Cholesterol 51 mg/dL; Iron 44 mcg/dL (45-160); LDL Cholesterol Calculated 62 mg/dl; Percent Iron Saturation 12 % (15-50); Potassium 4.6 mmol/L (3.3-5.1); Sodium 140 mmol/L (135-145); Total Iron Binding Capacity 379 mcg/dL (228-428); Total Protein 7.6 g/dL (6.5-8.0); Triglycerides 66 mg/dL; Unsaturated Iron Binding 335 ug/dL
== END 2022-02-08 06:27 | disposition home or self-care (01) ==
LOC: HO.LAB 06:26
PROVIDERS: PCP Internal Medicine; Visit Provider Internal Medicine
DX: I48.19 Other persistent atrial fibrillation (principal); E78.5 Hyperlipidemia, unspecified; D64.9 Anemia, unspecified; I47.20 Ventricular tachycardia, unspecified
CPT/HCPCS: 36415; 80053; 80061; 83540; 85025; 85610

== ENCOUNTER → 2022-02-09 10:47 | Outpatient (BNVA) | payer MEDICARE, MEDICAID, SELFPAY | PROVIDERS: PCP Internal Medicine; Visit Provider Internal Medicine | DX: Z95.2 Presence of prosthetic heart valve (principal); Z79.01 Long term (current) use of anticoagulants; Z51.81 Encounter for therapeutic drug level monitoring | CPT/HCPCS: 85610; 99211 ==

== ENCOUNTER → 2022-02-23 10:45 | Outpatient (BNVA) | payer MEDICARE, MEDICAID, SELFPAY | PROVIDERS: PCP Internal Medicine; Visit Provider Internal Medicine | DX: Z95.2 Presence of prosthetic heart valve (principal); Z79.01 Long term (current) use of anticoagulants; Z51.81 Encounter for therapeutic drug level monitoring | CPT/HCPCS: 85610; 99211 ==

== ENCOUNTER → 2022-03-02 11:19 | Outpatient (BNVA) | payer MEDICARE, MEDICAID, SELFPAY | PROVIDERS: PCP Internal Medicine; Visit Provider Internal Medicine | DX: Z95.2 Presence of prosthetic heart valve (principal); Z79.01 Long term (current) use of anticoagulants; Z51.81 Encounter for therapeutic drug level monitoring; R22.41 Localized swelling, mass and lump, right lower limb | CPT/HCPCS: 85610; 93971; 99211 ==

== ENCOUNTER 2022-03-02 13:35 | Outpatient (REF) | payer MEDICARE, MEDICAID, SELFPAY ==
--- NOTE | ~2022-03-02 | US_ITS ---
EXAMINATION: US VENOUS ULTRASOUND WITH DOPPLER LOWER EXTREMITY, RIGHT CLINICAL INFORMATION: Right lower extremity edema. COMPARISON: None TECHNIQUE: Ultrasound of the deep veins is performed from the hip to the calf with compression sonography and color and pulse Doppler assessment. Spectral analysis with color-flow imaging is performed. FINDINGS: There is normal venous compression and respiratory variation and augmented flow. The visualized common femoral vein, superficial femoral vein, profunda femoral vein, popliteal vein, and the trifurcation region shows no evidence of deep venous thrombosis. At the medial aspect of the knee there is a complex fluid collection measuring 5.1 x 4.2 x 5.2 cm. This is not the typical location for a Cooper's cyst. If the patient's symptoms persist, followup ultrasound in 5 days 7 days might be of value to exclude proximal propagation from a non-visualized calf vein. US/US venous duplex LE RT IMPRESSION: No DVT demonstrated in the right lower extremity. Complex fluid collection along the medial aspect of the knee.
== END 2022-03-02 13:36 | disposition home or self-care (01) ==
LOC: HO.US 13:35
PROVIDERS: PCP Internal Medicine; Visit Provider Internal Medicine
DX: Z13.89 Encounter for screening for other disorder (principal)
CPT/HCPCS: 93971

== ENCOUNTER → 2022-03-09 10:28 | Outpatient (BNVA) | payer MEDICARE, MEDICAID, SELFPAY | PROVIDERS: PCP Internal Medicine; Visit Provider Surgery | DX: L76.34 Postprocedural seroma of skin and subcutaneous tissue following other procedure (principal); Z95.1 Presence of aortocoronary bypass graft | CPT/HCPCS: 10160; 99202 ==

== ENCOUNTER → 2022-03-16 11:02 | Outpatient (BNVA) | payer MEDICARE, MEDICAID, SELFPAY | PROVIDERS: PCP Internal Medicine; Visit Provider Internal Medicine | DX: Z95.2 Presence of prosthetic heart valve (principal); Z79.01 Long term (current) use of anticoagulants; Z51.81 Encounter for therapeutic drug level monitoring | CPT/HCPCS: 85610; 99211 ==

== ENCOUNTER → 2022-03-17 09:43 | Outpatient (BNVA) | payer MEDICARE, MEDICAID, SELFPAY | PROVIDERS: PCP Internal Medicine; Visit Provider Surgery | DX: I97.641 Postprocedural seroma of a circulatory system organ or structure following cardiac bypass (principal) | CPT/HCPCS: 10021; 10160; 99212 ==

== ENCOUNTER → 2022-03-23 10:49 | Outpatient (BNVA) | payer MEDICARE, MEDICAID, SELFPAY | PROVIDERS: PCP Internal Medicine; Visit Provider Internal Medicine | DX: Z95.2 Presence of prosthetic heart valve (principal); Z79.01 Long term (current) use of anticoagulants; Z51.81 Encounter for therapeutic drug level monitoring | CPT/HCPCS: 85610; 99211 ==

== ENCOUNTER → 2022-03-30 13:06 | Outpatient (BNVA) | payer MEDICARE, MEDICAID, SELFPAY | PROVIDERS: PCP Internal Medicine; Visit Provider Internal Medicine | DX: Z95.2 Presence of prosthetic heart valve (principal); Z79.01 Long term (current) use of anticoagulants; Z51.81 Encounter for therapeutic drug level monitoring | CPT/HCPCS: 85610; 99211 ==

== ENCOUNTER → 2022-04-05 09:49 | Outpatient (BNVA) | payer MEDICARE, MEDICAID, SELFPAY | PROVIDERS: PCP Internal Medicine; Visit Provider Internal Medicine | DX: Z95.2 Presence of prosthetic heart valve (principal); Z79.01 Long term (current) use of anticoagulants; Z51.81 Encounter for therapeutic drug level monitoring | CPT/HCPCS: 85610; 99211 ==

== ENCOUNTER → 2022-04-12 10:46 | Outpatient (BNVA) | payer MEDICARE, MEDICAID, SELFPAY | PROVIDERS: PCP Internal Medicine; Visit Provider Internal Medicine | DX: Z95.2 Presence of prosthetic heart valve (principal); Z79.01 Long term (current) use of anticoagulants; Z51.81 Encounter for therapeutic drug level monitoring | CPT/HCPCS: 85610; 99211 ==

== ENCOUNTER → 2022-04-19 10:52 | Outpatient (BNVA) | payer MEDICARE, MEDICAID, SELFPAY | PROVIDERS: PCP Internal Medicine; Visit Provider Internal Medicine | DX: Z95.2 Presence of prosthetic heart valve (principal); Z79.01 Long term (current) use of anticoagulants; Z51.81 Encounter for therapeutic drug level monitoring | CPT/HCPCS: 85610; 99211 ==

== ENCOUNTER → 2022-04-29 11:01 | Outpatient (BNVA) | payer MEDICARE, MEDICAID, SELFPAY | PROVIDERS: PCP Internal Medicine; Visit Provider Internal Medicine | DX: Z95.2 Presence of prosthetic heart valve (principal); Z79.01 Long term (current) use of anticoagulants; Z51.81 Encounter for therapeutic drug level monitoring | CPT/HCPCS: 85610; 99211 ==

== ENCOUNTER → 2022-05-13 15:19 | Outpatient (BNVA) | payer MEDICARE, MEDICAID, SELFPAY | PROVIDERS: PCP Internal Medicine; Visit Provider Internal Medicine | DX: Z79.01 Long term (current) use of anticoagulants (principal) ==

== ENCOUNTER → 2022-06-17 10:48 | Outpatient (BNVA) | payer MEDICARE, MEDICAID, SELFPAY | PROVIDERS: PCP Internal Medicine; Visit Provider Internal Medicine | DX: Z95.2 Presence of prosthetic heart valve (principal); Z79.01 Long term (current) use of anticoagulants; Z51.81 Encounter for therapeutic drug level monitoring | CPT/HCPCS: 85610; 99211 ==

== ENCOUNTER 2022-06-28 11:23 | Outpatient (REF) | payer MEDICARE, MEDICAID, SELFPAY ==
[2022-06-28 11:53] LABS: MANUAL DIFF FLAG NO
[2022-06-28 11:57] LABS: Basophils Percent Auto 0.6 % (0-2); Eosinophils Absolute Auto 0.5 X10*3/uL (0.0-0.4); Eosinophils Percent Auto 7.3 % (0-4); Hematocrit 37.4 % (42.0-52.0); Hemoglobin 11.9 g/dl (14.0-18.0); Imm Gran Abs Auto 0.02 X10*3/uL (0.00-0.03); Imm Gran Pct Auto 0.3 % (0.0-0.4); Lymphocytes Absolute Auto 0.8 X10*3/uL (1.2-4.9); Lymphocytes Percent Auto 10.5 % (20-40); Mean Corpuscular HGB Conc 31.8 g/dl (31.0-36.0); Mean Corpuscular Hemoglobin 27.6 pg (27.0-33.0); Mean Corpuscular Volume 86.8 fL (80.0-98.0); Mean Platelet Volume 9.4 fL (9.4-12.4); Monocytes Absolute Auto 0.6 X10*3/uL (0.1-1.2); Neutrophils Absolute Auto 5.3 x10*3/uL (2.0-8.3); Neutrophils Percent Auto 73.3 % (45-73); Platelet Count 319 X10*3/uL (160-400); Red Blood Count 4.31 X10*6/uL (4.60-5.80); Red Cell Distribution Width 14.6 % (11.0-16.0); White Blood Count 7.3 X10*3/uL (4.8-10.8)
[2022-06-28 12:05] LABS: INTERNATIONAL NORM RATIO 2.9 (0.9-1.1); Prothrombin Time 34.3 SEC (10.0-13.1)
[2022-06-28 12:44] LABS: Alanine Aminotransferase 24 U/L (0-40); Albumin Level 3.7 g/dL (3.5-5.0); Alkaline Phosphatase 83 U/L (39-117); Anion Gap 12 (12-20); Aspartate Amino Transferase 30 U/L (5-37); Bilirubin Total 2.4 mg/dL (0.0-1.0); Blood Urea Nitrogen 19 mg/dL (9-16); Carbon Dioxide 28 mmol/L (22-29); Chloride 104 mmol/L (96-108); Cholesterol 120 mg/dL; Estimated Glomerular Filt Rate > 60; Glucose Fasting 101 mg/dL (60-99); HDL Cholesterol 52 mg/dL; Iron 44 mcg/dL (45-160); LDL Cholesterol Calculated 59 mg/dl; Percent Iron Saturation 16 % (15-50); Potassium 4.6 mmol/L (3.3-5.1); Sodium 139 mmol/L (135-145); Total Iron Binding Capacity 281 mcg/dL (228-428); Total Protein 7.6 g/dL (6.5-8.0); Triglycerides 46 mg/dL; Unsaturated Iron Binding 237 ug/dL
[2022-06-28 13:00] LABS: PSA,Total (Free>4and<10) < 0.10 ng/mL (0.00-4.00)
[2022-07-08 13:09] LABS: Testosterone, Free 1.4 pg/mL (35.0-155.0); Testosterone, Total 9 ng/dL (250-1100)
== END 2022-06-28 11:24 | disposition home or self-care (01) ==
LOC: HO.LAB 11:23
PROVIDERS: PCP Internal Medicine; Visit Provider Urology
DX: Z00.00 Encounter for general adult medical examination without abnormal findings (principal); Z12.5 Encounter for screening for malignant neoplasm of prostate; C61 Malignant neoplasm of prostate; D64.9 Anemia, unspecified; E78.5 Hyperlipidemia, unspecified; I48.19 Other persistent atrial fibrillation; Z79.01 Long term (current) use of anticoagulants
CPT/HCPCS: 36415; 80053; 80061; 83540; 84153; 84402; 84403; 85025; 85610

== ENCOUNTER → 2022-07-01 11:00 | Outpatient (BNVA) | payer MEDICARE, MEDICAID, SELFPAY | PROVIDERS: PCP Internal Medicine; Visit Provider Internal Medicine | DX: Z95.2 Presence of prosthetic heart valve (principal); Z79.01 Long term (current) use of anticoagulants; Z51.81 Encounter for therapeutic drug level monitoring | CPT/HCPCS: 85610; 99211 ==

== ENCOUNTER → 2022-07-04 14:40 | Outpatient (REF) | payer MEDICARE, MEDICAID, SELFPAY ==
--- NOTE | 2022-07-04 14:43 | CA_ITS ---
Transthoracic Echocardiogram Patient (Last, First, Middle): Andres Weiss C Gender: Male Date of : 1955 Age: 66 Procedure Date: 07/04/2022 Procedure Type: Transthoracic Echocardiogram Location: OP Height: 182.88 cm Weight: 133.81 kg BSA: 2.51 m2 Heart Rate: 103 bpm BP: 148 / 84 mmHg Cashier Manager: SB Referring MD: Young Ramirez MD Symptoms: Z95.2 - Presence of prosthetic heart valve Study Quality: Adequate w contrast ECG Rhythm: Atrial Fibrillation Conclusions: - Even with contrast use, difficult to assess LVEF. Possibly mildly reduced, about 40-50%. - There is severely decreased right ventricular systolic function. - A mechanical prosthetic mitral valve is present. The prosthetic mitral valve appears to be functioning abnormally. The mitral valve was not well visualized. Mean gradient across the mitral valve as much as 10mmHg at HR about 100/min. Findings Procedure Information Contrast agent, definity, is being given per protocol without apparent complications. Left Ventricle Normal left ventricular cavity size. Regional wall motion abnormalities can not be excluded due to suboptimal endocardial definition. Diastolic function is indeterminate on the basis of available data. There is severe septal asymmetric hypertrophy. Even with contrast use, difficult to assess LVEF. Possibly mildly reduced, about 40-50%. Right Ventricle The right ventricle was not well visualized. Mildly increased right ventricular cavity size. There is severely decreased right ventricular systolic function. There is an ICD wire seen in the right ventricle. Atria The left atrium is severely dilated. The right atrium was not well visualized. Aortic Valve There is a normal trileaflet aortic valve. There is mild calcification of the aortic valve. There is no aortic valve stenosis. There is trace (trivial) aortic valve regurgitation. Mitral Valve A mechanical prosthetic mitral valve is present. The prosthetic mitral valve appears to be functioning abnormally. The mitral valve was not well visualized. Mean gradient across the mitral valve as much as 10mmHg at HR about 100/min. Cannot assess for regurgitation. Pulmonic Valve The pulmonic valve is likely normal. Tricuspid Valve There is trace tricuspid valve regurgitation. Tricuspid regurgitation envelope is inadequate for calculation of right ventricular systolic pressure. Great Vessels The asc aorta is normal in size. Venous The inferior vena cava is mildly dilated and collapses greater than 50% with inspiration. Pericardium/Pleural There is no evidence of pericardial effusion. Prior Study Comparison Changes noted compared to prior study dated: 02/04/2022. Increase in mitral gradients, but HR also higher compared to prior study. Measurements 2D Linear Measurements IVSd: 1.62 0.6-0.9/0.6-1.0 cm LVIDd: 5.09 3.9-5.3/4.2-5.9 cm LVIDd Index: 2.03 2.4-3.2/2.2-3.1 cm/m2 LVIDs: 3.15 2.0-3.6 cm LVPWd: 0.86 0.7-1.1 cm LA Diam: 6.00 2.7-3.8/3.0-4.0 cm LAIDs Index: 2.39 1.5-2.3 cm/m2 LV Mass: 314.18 67-162/88-224 g LV Mass Index: 125.17 43-95/49-115 g/m2 LVOT Diam: 2.10 3.0+(-)1.3 cm 2D Systolic Function EF 4C: 56.10 >55% EF 2C: 61.70 >55% EF BiP: 58.10 >55% Mitral Valve MV VTI: 0.36 MV Pk Bogdan: 2.13 MV Mn Bogdan: 1.44 MV Pk Grad: 18.00 MV Mn Grad: 10.00 MV Pk E: 1.76 MVA Continuity: 1.58 Aortic Valve AoV Pk Bogdan: 1.19 AoV Pk Grad: 6.00 DENG: 3.00 LVOT LVOT Pk Bogdan: 1.04 LVOT Mn Bogdan: 0.68 LVOT VTI: 0.17 LVOT Pk Grad: 4.00 LVOT Mn Grad: 2.00 LVOT Diam: 2.10 LVOT Area: 3.46 Diastolic Function MV Pk E: 1.76 Right Ventricle TAPSE (mm): 4.00 TVS' Bogdan: 6.30 Tricuspid Valve RA Press: 8.00 Great Vessels Aorta Sinus of Valsalva: 3.70 2.0-3.5 cm Ao Asc: 3.80 2.1-3.4 cm Pulmonary Valve PV Pk Bogdan: 0.83 Peak PV Grad: 3.00 Updated in Other Vendor System with Status of Final Young Ramirez MD electronically signed on 07/04/2022 5:11:31 PM with status of Final
[2022-07-04 16:45] LABS: INTERNATIONAL NORM RATIO 3.4 (0.9-1.1); Prothrombin Time 40.8 SEC (10.0-13.1)
== END ==
LOC: HO.CARD 14:40
PROVIDERS: Internal Medicine; Visit Provider Internal Medicine
DX: Z95.2 Presence of prosthetic heart valve (principal); Z79.01 Long term (current) use of anticoagulants
CPT/HCPCS: 36415; 85610; 93306; Q9957

== ENCOUNTER → 2022-07-05 11:33 | Outpatient (BNVA) | payer MEDICARE, MEDICAID, SELFPAY | PROVIDERS: PCP Internal Medicine; Referring Provider Internal Medicine; Visit Provider Internal Medicine | DX: I42.2 Other hypertrophic cardiomyopathy (principal); I48.19 Other persistent atrial fibrillation; I47.20 Ventricular tachycardia, unspecified; I10 Essential (primary) hypertension; Z95.2 Presence of prosthetic heart valve; Z98.890 Other specified postprocedural states; Z95.818 Presence of other cardiac implants and grafts; Z95.1 Presence of aortocoronary bypass graft; Z86.73 Personal history of transient ischemic attack (TIA), and cerebral infarction without residual deficits | CPT/HCPCS: 99212 ==

== ENCOUNTER → 2022-07-08 14:21 | Outpatient (BNVA) | payer MEDICARE, MEDICAID, SELFPAY | PROVIDERS: PCP Internal Medicine; Visit Provider Urology | DX: C61 Malignant neoplasm of prostate (principal) | CPT/HCPCS: Q3014 ==

== ENCOUNTER → 2022-07-15 10:48 | Outpatient (BNVA) | payer MEDICARE, MEDICAID, SELFPAY | PROVIDERS: PCP Internal Medicine; Visit Provider Internal Medicine | DX: I48.0 Paroxysmal atrial fibrillation (principal); Z95.2 Presence of prosthetic heart valve; Z79.01 Long term (current) use of anticoagulants; Z51.81 Encounter for therapeutic drug level monitoring | CPT/HCPCS: 85610; 99211 ==

== ENCOUNTER → 2022-07-29 10:49 | Outpatient (BNVA) | payer MEDICARE, MEDICAID, SELFPAY | PROVIDERS: PCP Internal Medicine; Visit Provider Internal Medicine | DX: Z95.2 Presence of prosthetic heart valve (principal); Z79.01 Long term (current) use of anticoagulants; Z51.81 Encounter for therapeutic drug level monitoring | CPT/HCPCS: 85610; 99211 ==

== ENCOUNTER → 2022-08-12 10:52 | Outpatient (BNVA) | payer MEDICARE, MEDICAID, SELFPAY | PROVIDERS: PCP Internal Medicine; Visit Provider Internal Medicine | DX: Z95.2 Presence of prosthetic heart valve (principal); Z79.01 Long term (current) use of anticoagulants; Z51.81 Encounter for therapeutic drug level monitoring | CPT/HCPCS: 85610; 99211 ==

== ENCOUNTER → 2022-08-26 11:06 | Outpatient (BNVA) | payer MEDICARE, MEDICAID, SELFPAY | PROVIDERS: PCP Internal Medicine; Visit Provider Internal Medicine | DX: Z95.2 Presence of prosthetic heart valve (principal); Z79.01 Long term (current) use of anticoagulants; Z51.81 Encounter for therapeutic drug level monitoring | CPT/HCPCS: 85610; 99211 ==

== ENCOUNTER → 2022-10-03 12:36 | Outpatient (BNVA) | payer MEDICARE, MEDICAID, SELFPAY | PROVIDERS: PCP Internal Medicine; Referring Provider Internal Medicine; Visit Provider Internal Medicine | DX: Z45.02 Encounter for adjustment and management of automatic implantable cardiac defibrillator (principal); I42.2 Other hypertrophic cardiomyopathy; I48.19 Other persistent atrial fibrillation; I47.20 Ventricular tachycardia, unspecified; I10 Essential (primary) hypertension; G47.33 Obstructive sleep apnea (adult) (pediatric); Z95.2 Presence of prosthetic heart valve; Z98.890 Other specified postprocedural states; Z95.818 Presence of other cardiac implants and grafts; Z95.1 Presence of aortocoronary bypass graft; Z86.73 Personal history of transient ischemic attack (TIA), and cerebral infarction without residual deficits | CPT/HCPCS: 93005; 99212 ==

== ENCOUNTER → 2022-10-07 10:50 | Outpatient (BNVA) | payer MEDICARE, MEDICAID, SELFPAY | PROVIDERS: PCP Internal Medicine; Visit Provider Internal Medicine | DX: Z95.2 Presence of prosthetic heart valve (principal); Z79.01 Long term (current) use of anticoagulants; Z51.81 Encounter for therapeutic drug level monitoring | CPT/HCPCS: 85610; 99211 ==

== ENCOUNTER → 2022-10-18 12:43 | Outpatient (REF) | payer MEDICARE, MEDICAID, SELFPAY ==
--- NOTE | 2022-10-18 12:47 | CA_ITS ---
Transthoracic Echocardiogram Patient (Last, First, Middle): Andres Weiss C Gender: Male Date of : 1955 Age: 67 Procedure Date: 10/18/2022 Procedure Type: Transthoracic Echocardiogram Location: OP Height: 185.42 cm Weight: 133.81 kg BSA: 2.54 m2 Heart Rate: 68 bpm BP: 125 / 80 mmHg Supervisor Pipeline: VIVI Referring MD: Young Ramirez MD Symptoms: Z95.2 - Presence of prosthetic heart valve Study Quality: Fair/Contrast ECG Rhythm: Atrial Fibrillation Conclusions: - The left ventricular systolic function is mildly decreased. The calculated ejection fraction is 47% by biplane method. - A mechanical prosthetic mitral valve is present. The prosthetic mitral valve appears to be functioning normally. Findings Procedure Information Contrast agent, definity, is being given per protocol without apparent complications. Left Ventricle Normal left ventricular cavity size. There is mildly increased left ventricular wall thickness. The left ventricular systolic function is mildly decreased. The calculated ejection fraction is 47% by biplane method. Regional wall motion abnormalities can not be excluded due to suboptimal endocardial definition. Diastolic function is indeterminate on the basis of available data. There is moderate septal asymmetric hypertrophy. Right Ventricle Moderately increased right ventricular cavity size. There is mild to moderately decreased right ventricular systolic function. There is an ICD wire seen in the right ventricle. Atria The left atrium is severely dilated. The right atrium is normal in size. Aortic Valve There is a normal trileaflet aortic valve. There is mild calcification of the aortic valve. There is no aortic valve stenosis. There is no aortic valve regurgitation. Mitral Valve A mechanical prosthetic mitral valve is present. The prosthetic mitral valve appears to be functioning normally. The mitral valve was not well visualized. There is no mitral valve regurgitation. Mean gradient across the mitral valve 8mmHg at 68/min. Pulmonic Valve The pulmonic valve is likely normal. Tricuspid Valve There is trace tricuspid valve regurgitation. There is no evidence of pulmonary hypertension. Great Vessels The asc aorta is normal in size. Venous The inferior vena cava is mildly dilated and collapses greater than 50% with inspiration. Pericardium/Pleural There is no evidence of pericardial effusion. Prior Study Comparison No significant change compared to prior study dated: 07/04/2022. Measurements 2D Linear Measurements IVSd: 1.36 0.6-0.9/0.6-1.0 cm LVIDd: 5.79 3.9-5.3/4.2-5.9 cm LVIDd Index: 2.28 2.4-3.2/2.2-3.1 cm/m2 LVIDs: 3.64 2.0-3.6 cm LVPWd: 1.13 0.7-1.1 cm Ao Root: 4.00 2.1-3.5 cm LA Diam: 5.60 2.7-3.8/3.0-4.0 cm LAIDs Index: 2.20 1.5-2.3 cm/m2 LV Mass: 388.50 67-162/88-224 g LV Mass Index: 152.95 43-95/49-115 g/m2 LVOT Diam: 2.30 3.0+(-)1.3 cm 2D Systolic Function EF 4C: 50.60 >55% EF 2C: 43.90 >55% EF BiP: 47.00 >55% Mitral Valve MV VTI: 0.52 MV Pk Bogdan: 2.05 MV Mn Bogdan: 1.16 MV Pk Grad: 17.00 MV Mn Grad: 7.00 MV Pk E: 1.69 MV Decel Time: 364.00 E'Lateral: 5.55 E'Medial: 5.87 E/E' Med: 28.80 E/E' Lat: 30.50 PHT: 107.00 MVA PHT: 2.06 MVA Continuity: 2.08 Decel Jay: 4.64 Aortic Valve AoV Pk Bogdan: 1.21 AoV Mn Bogdan: 0.92 AoV VTI: 0.28 AoV Pk Grad: 6.00 Aov Mn Grad: 4.00 DENG Cont.VTI: 3.83 LVOT LVOT Pk Bogdan: 1.24 LVOT Mn Bogdan: 0.87 LVOT VTI: 0.26 LVOT Pk Grad: 6.00 LVOT Mn Grad: 4.00 LVOT Diam: 2.30 LVOT Area: 4.15 Diastolic Function MV Pk E: 1.69 E'Medial: 5.87 E/E' Med: 28.80 E' Laterial: 5.55 E/E' Lat: 30.50 Tricuspid Valve RA Press: 8.00 Great Vessels Aorta Ao Root-2D: 4.00 2.0-3.7 cm Ao Asc: 3.50 2.1-3.4 cm Pulmonary Valve PV Pk Bogdan: 0.76 Peak PV Grad: 2.00 Updated in Other Vendor System with Status of Final Young Ramirez MD electronically signed on 10/20/2022 4:26:50 PM with status of Final
--- NOTE | 2022-10-18 12:47 | HM_ITS ---
Conclusion: 1. Patient was monitored for total period of 2 days and 21 hours 2. Baseline was atrial fibrillation with average heart of 75 beats per minute with good rate control 3. No significant pauses noted 4. Occasional PVCs noted with 3 nonsustained VT episodes longest lasting 6 beats and fastest at 140 beats per minute 5. No patient reported symptoms MTDD
== END ==
LOC: HO.CARD 12:43
PROVIDERS: PCP Internal Medicine; Visit Provider Internal Medicine
DX: I48.19 Other persistent atrial fibrillation (principal); Z95.2 Presence of prosthetic heart valve
CPT/HCPCS: 93242; 93306; Q9957

== ENCOUNTER → 2022-10-28 10:34 | Outpatient (BNVA) | payer MEDICARE, MEDICAID, SELFPAY | PROVIDERS: PCP Internal Medicine; Visit Provider Internal Medicine | DX: Z95.2 Presence of prosthetic heart valve (principal); Z79.01 Long term (current) use of anticoagulants; Z51.81 Encounter for therapeutic drug level monitoring | CPT/HCPCS: 85610; 99211 ==

== ENCOUNTER 2022-10-31 07:41 | Outpatient (REF) | payer OTHER, SELFPAY ==
[2022-10-31 09:11] LABS: Prostate Specific Antigen < 0.10 ng/mL (<0.05-4.0)
== END 2022-10-31 07:42 | disposition home or self-care (01) ==
LOC: HO.LAB 07:41
PROVIDERS: PCP Internal Medicine; Visit Provider Urology
DX: Z12.5 Encounter for screening for malignant neoplasm of prostate (principal); R97.21 Rising PSA following treatment for malignant neoplasm of prostate
CPT/HCPCS: 36415; 84153; 84403

== ENCOUNTER 2022-11-08 14:21 | Outpatient (AMB) | payer MEDICARE, SELFPAY ==
--- NOTE | 2022-11-08 14:22 | MHC.PC.OV ---
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: No Accompanied by: Self / Same As Patient Allergies No Known Allergies [No Known Allergies*] Allergy (Verified 11/08/22 14:33) Medication List - Last Reconciled 11/08/22 by Barbara Peterson MD acetaminophen 650 mg PO Q6H PRN aspirin 81 mg PO DAILY atenolol 100 mg PO DAILY atorvastatin 40 mg PO BEDTIME 90 days [compression stockings knee-high 20 mmHg] ferrous sulfate 325 mg PO QAM furosemide 40 mg PO QAM lactulose 15 mL PO DAILY lisinopril 20 mg PO DAILY 90 days oxycodone-acetaminophen 5-325 mg 1 tab PO BID PRN 30 days pantoprazole 40 mg PO DAILY potassium chloride ER (Klor-Con M) 20 mEq PO QAM sennosides (senna) 8.6 mg PO verapamil 120 mg PO TID 90 days warfarin 5 mg See Protocol PO DAILY 90 days Tobacco use date assessed: 06/23/22 Fall risk assessment: No Falls in past year Last assessed Fall Risk: 11/08/22 Dental Screening Dental Screen Date: 11/08/22 Did you have a dental visit in the last 12 months?: Yes Did you have a dental problem in the last 6 months where you did not have access to dental care?: No Was dental information given to patient?: Patient has dentist HPI HPI Comments History of Present Illness Details This is a 67-year-old male with hypertension, hypertrophic cardiomyopathy, persistent atrial fibrillation and morbid obesity that comes today for follow-up on his conditions. Blood pressure stable. Echocardiogram was done last month with ejection fraction of 47% and this is follow by cardiology. Has not gain [facility] Medical History Essential hypertension History of stroke Hypertrophic cardiomyopathy Leg edema Lumbar degenerative disc disease Morbid obesity Opiate dependence AXEL (obstructive sleep apnea) PAF (paroxysmal atrial fibrillation) Paroxysmal atrial flutter Peripheral vascular disease Poor circulation Seroma after procedure Ventricular tachyarrhythmia Surgical History History of cardiac catheterization History of cardiac pacemaker (~03/2014) Status post aorto-coronary artery bypass graft Status post implantation of mitral valve leaflet clip Status post mitral valve replacement Family History Father Diabetes Mother No problems noted. Social History Housing: Apartment Alcohol intake: current Alcohol intake frequency: holidays/special occasions only Alcohol type: hard liquor Patient Tobacco Use Status: Never used Tobacco e-Cigarette/Vaping Use: Never Used Second Hand Smoke Exposure: No service: No Current occupational status: unemployed Cognitive needs: Yes Hearing needs: No Vision needs: Yes Questionnaire Thrive Questionnaire Date Thrive assessed: 06/23/22 JOAQUIM-7 AMB Questionnaire JOAQUIM-7 Date JOAQUIM - 7 assessed: 06/23/22 Source: Developed by Drs. Anup Nieto, Hilda Terry, Florian Kearney and colleagues, with an educational yumi from [employer]. Review of Systems Const All systems reviewed & are unremarkable except as noted in HPI and below Eyes Reports no additional complaints, Denies change in vision and Denies other visual disturbances Card Denies chest pain at rest, Denies chest pain with activity, Denies edema, Denies irregular heart rhythm, Denies claudication, Denies dyspnea, Denies dyspnea on exertion, Denies orthopnea, Denies paroxysmal nocturnal dyspnea and Denies slow heart rate Resp Denies cough, Denies dyspnea and Denies dyspnea on exertion GI Denies abdominal pain, Denies change in bowel habits, Denies excessive flatus, Denies nausea and Denies vomiting Denies urinary hesitancy, Denies urinary incontinence and Denies urinary urgency Musc Denies abnormal gait, Denies atrophy, Denies deformity and Denies limited range of motion Skin/Breast Denies bleeding lesions, Denies changing lesions and Denies rash Neuro Denies abnormal gait and Denies lack of coordination Physical exam (Primary Care) Vital Signs: Last Vital Signs BP 126/82 11/08/22 14:23 BMI result Body Mass Index 40.4 Tobacco/Smoking Status: Tobacco use Status Tobacco use date assessed 06/23/22 11/08/22 14:28 Patient Tobacco Use Status Never used Tobacco 11/08/22 14:28 e-Cigarette/Vaping Use Never Used 11/08/22 14:28 Thrive Assessment: Date of Thrive Assessment Date Thrive assessed 06/23/22 11/08/22 14:28 Eyes General: appearance normal, both eyes and all related structures Eyelids: Yes eyelids normal Conjunctivae: conjunctivae normal Neck Neck: Yes normal visual inspection and Yes supple Resp Effort & Inspection: normal respiratory effort Auscultation: clear to auscultation bilaterally Cardio Jugular venous distension: no JVD Rate: regular rate Rhythm: regular rhythm Heart sounds: S1 normal heart sound present and S2 normal heart sound present Extrem General: Yes full ROM Assessment and Plan Assessment & Plan (1) Essential hypertension: Code(s): I10 - Essential (primary) hypertension Plan: Continue lisinopril. Blood pressure goal is equal or less than 130/80. (2) Persistent atrial fibrillation: Code(s): I48.19 - Other persistent atrial fibrillation Plan: Continue warfarin. The goal is heart rate control. INR goal is 2.5-3. (3) Morbid obesity: Comment: The patient is relatively inactive. He does have gross obesity. He is a good candidate for obstructive sleep apnea. Discussed about need to do some weight reduction. He is not in a position to do anything at this time . Code(s): E66.01 - Morbid (severe) obesity due to excess calories Plan: Start diet and exercise. BMI goal is less than 30. (4) Hypertrophic cardiomyopathy: Code(s): I42.2 - Other hypertrophic cardiomyopathy Plan: Use diuretics as needed. The goal is to not gain 5 lb in a week. Follow-up with Cardiology Medications: New oxycodone-acetaminophen 5-325 mg Partial Fill upon patient request. 1 tab PO Q12H 30 days PRN 60 tabs 0RF pain M51.36 - Other intervertebral disc degeneration, lumbar region Coding Level of Care Code Est Pt Level 4 (93383) Diagnoses Essential hypertension I10 Persistent atrial fibrillation I48.19 Morbid obesity E66.01 Hypertrophic cardiomyopathy I42.2 Time Spent (min) 23
[2022-11-08 14:23] VITALS: BP 126/82; BMI 40.4
== END 2022-11-08 14:41 | disposition home or self-care (01) ==
PROVIDERS: Visit Provider Internal Medicine
DX: I10 Essential (primary) hypertension (principal); I48.19 Other persistent atrial fibrillation; E66.01 Morbid (severe) obesity due to excess calories; I42.2 Other hypertrophic cardiomyopathy
CPT/HCPCS: 99214

== ENCOUNTER 2022-11-09 12:57 | Outpatient (AMB) | payer MEDICARE, SELFPAY ==
--- NOTE | 2022-11-09 13:10 | MHC.OFFVIS ---
Intake Intake Visit Reasons: 4M PSA/Testo(Pending) Intake Note: Patient presents today for a 4mo follow-up with PSA/Testo Results. Meds- None Allergies to Antibiotic- None Blood Thinner- None PSA- <0.010 ng/mL Fulfillment Coordinator Required: No Allergies No Known Allergies [No Known Allergies*] Allergy (Verified 11/08/22 14:33) HPI HPI Comments History of Present Illness Details Andres is a very pleasant male. He is a patient of Dr. Peterson. He is seen for the following urologic conditions - prostate cancer - laura recurrence - erectile dysfunction PSA remains low PSA 11/20 <0.1, T1 23 Plan on 3 month follow-up, repeat labs, repeat PET-CT for 18 months assessment Restart tadalafil 10 mg daily 01/20 mitral valve prolapse with replacement at [facility] - dislodged mitral clip into right ostia Prostate cancer: [place] 4 + 4, group 4, XRT with hormones 2016 - recurrence 2021 pelvic laura with focal XRT and hormones 09/19 PET-CT scan shows positive laura disease along pelvic and retroperitoneal wall Radiation boost therapy with Dr. Walters at [facility] and 6m hormones Prostate cancer was diagnosed 03/2016 Dr Russo. Diagnosis was reached by needle biopsy, for elevated PSA, PSA at diagnosis 34. The [place] grade is 9/12 cores , 4+4 = 8 and , 4+3 = 7 > 40% in all cores. TNM Classification of Malignant Tumours (TNM) T2b. The D'Ankit (NCCN) risk category is High Risk (PSA > 20, Gl 8+, T3) - MSK nomagram pre treatment - 3% OCD, 95% FIDELINA, 70% LNI. Initial therapy included Primary treatment - bicalutamide, hormones 05/05/16 - GnRH , External beam radiation with short term hormonal ablation complete 10/15 - [facility] Recent labs included a PSA (prostate-specific antigen) 05/17 on bicalutamide only - 4.6, T 272 07/15 a PSA (prostate-specific antigen) 0.18, T 12 02/14 , a PSA (prostate-specific antigen) 0.22, , T 12 07/16 PSA 0.2, 10/16 PSA 0.15, 02/15 PSA 0.15 T 193 07/17 PSA 0.5 T 245, 01/17 PSA 1.2 T 260 05/20 0.5 T 240, 10/18 1.7 - 03/20 1.9 - 06/21 1.4, 12/19 2.4, 03/21 2.5, 07/20 4.3, 09/19 3.5, 05/28 <0.1 Recent imaging included 04/15 , a CT (computed tomography) scan - pelvic node 04/15 , a bone scan - negative 07/15 , a DEXA scan - normal. - 07/[address] with laura disease along pelvic basin to retroperitoneal wall PFSH Medical History Essential hypertension History of stroke Hypertrophic cardiomyopathy Leg edema Lumbar degenerative disc disease Morbid obesity Opiate dependence AXEL (obstructive sleep apnea) PAF (paroxysmal atrial fibrillation) Paroxysmal atrial flutter Peripheral vascular disease Poor circulation Seroma after procedure Ventricular tachyarrhythmia Surgical History History of cardiac catheterization History of cardiac pacemaker (~03/2014) Status post aorto-coronary artery bypass graft Status post implantation of mitral valve leaflet clip Status post mitral valve replacement Family History Father Diabetes Mother No problems noted. Social History Housing: Apartment Alcohol intake: current Alcohol intake frequency: holidays/special occasions only Alcohol type: hard liquor Patient Tobacco Use Status: Never used Tobacco e-Cigarette/Vaping Use: Never Used Second Hand Smoke Exposure: No service: No Current occupational status: unemployed Cognitive needs: Yes Hearing needs: No Vision needs: Yes Review of Systems Const Denies chills and Denies fever(s) Card Reports no additional complaints and Denies syncope Resp Denies cough GI Denies abdominal pain and Denies heartburn Reports as per HPI and Denies change in libido Neuro Denies syncope Psych Denies change in libido Endo Denies change in libido Physical Exam Const General: cooperative, healthy appearing, comfortable and no acute distress Orientation/consciousness: patient oriented x3 HEENT Face and sinus: Yes normal facial exam Mouth: moist mucous membranes Neck Neck: Yes normal visual inspection, Yes full ROM and Yes trachea midline Chest Chest palpation & inspection: normal inspection of the chest Resp Effort & Inspection: normal respiratory effort, able to speak in complete sentences and no respiratory distress GI Inspection: Yes normal to inspection Back/Spine/Pelvis Cervical Spine: normal cervical lordosis Thoracic/Lumbar Spine: thoracic and lumbar spine normal to inspection Skin General skin exam: no rashes or lesions noted Neuro General: patient oriented x3, gait normal, tone normal and moves all extremities Extrem General: Yes normal to inspection and Yes capillary refill normal Results AMB Urinalysis, Automated UA Leukoctes 0 Samuel/uL Last Edit by Dariela Cordon [facility] on 11/09/22 13:18 UA Nitrite Negative Last Edit by Dariela Cordon [facility] on 11/09/22 13:18 UA Urobilinogen 0.2 mg/dL Last Edit by Dariela Cordon [facility] on 11/09/22 13:18 UA Protein 0 mg/dL Last Edit by Dariela Cordon [facility] on 11/09/22 13:18 UA pH 6.0 Last Edit by Dariela Cordon [facility] on 11/09/22 13:18 UA Blood 0 Lux/uL Last Edit by Dariela Cordon [facility] on 11/09/22 13:18 UA Specific Gardner 1.025 Last Edit by Dariela Cordon [facility] on 11/09/22 13:18 UA Ketone Negative Last Edit by Dariela Cordon [facility] on 11/09/22 13:18 UA Bilirubin 0 mg/dL Last Edit by Dariela Cordon [facility] on 11/09/22 13:18 UA Glucose 0 mg/dL Last Edit by Dariela Cordon [facility] on 11/09/22 13:18 Results Reviewed Results Reviewed: Laboratory Last Values Urine pH (Auto) 6.0 11/09/22 13:16 Specific Gardner (Auto) 1.025 11/09/22 13:16 Urine Protein (Auto) 0 mg/dL 11/09/22 13:16 Glucose (UA)(Auto) 0 mg/dL 11/09/22 13:16 Urine Ketones (Auto) Negative 11/09/22 13:16 Urine Blood (Auto) 0 Lux/uL 11/09/22 13:16 Urine Nitrite (Auto) Negative 11/09/22 13:16 Urine Bilirubin (Auto) 0 mg/dL 11/09/22 13:16 Urine Urobilinogen (Auto) 0.2 mg/dL 11/09/22 13:16 Leukocyte Esterase (Auto) 0 Samuel/uL 11/09/22 13:16 Assessment & Plan Assessment & Plan (1) Rising PSA following treatment for malignant neoplasm of prostate: Code(s): R97.21 - Rising PSA following treatment for malignant neoplasm of prostate (2) Prostate cancer metastatic to intraabdominal lymph node: Code(s): C61 - Malignant neoplasm of prostate; C77.2 - Secondary and unspecified malignant neoplasm of intra-abdominal lymph nodes (3) Erectile dysfunction due to and not concurrent with radiation therapy: Code(s): N52.35 - Erectile dysfunction following radiation therapy Plan Three month follow-up labs and imaging Orders: Orders Blood Urea Nitrogen 3 Months R97.21 - Rising PSA following treatment for malignant neoplasm of prostate Creatinine 3 Months R97.21 - Rising PSA following treatment for malignant neoplasm of prostate Prostate Specific Antigen 3 Months R97.21 - Rising PSA following treatment for malignant neoplasm of prostate Testosterone, Total 3 Months R97.21 - Rising PSA following treatment for malignant neoplasm of prostate PET CT fusion skull to thigh 3 Months C61 - Malignant neoplasm of prostate, R97.21 - Rising PSA following treatment for malignant neoplasm of prostate AMB Urinalysis Automated Today Z13.9 - Encounter for screening, unspecified Medications: New tadalafil 10 mg PO DAILY 90 days 90 tabs 1RF sexual activity N52.35 - Erectile dysfunction following radiation therapy Patient Instructions: Imaging studies, laboratory and physical exam results were discussed and reviewed in detail. No major barriers to patient understanding were identified. An opportunity to ask questions regarding the treatment plan was provided. All questions were answered. The patient expressed understanding and agreement with the above treatment plan. The patient is aware they should contact our office by phone for worsening of their current condition or the appearance of new urologic symptoms. Compliance is encouraged with any medications and followup testing that is ordered. It is a privilege to participate in the urologic care of your patient. If you have any questions or concerns regarding treatment for the above conditions, or other urologic issues, please do not hesitate to contact me. The office telephone contact is [phone]. This note is constructed using voice recognition software. While every effort has been made to ensure accuracy head mva reactor operator errors may have been included. Yours sincerely, Dr Jian Russo MD, [facility] - Urology Providers of Expert, Compassionate Care for the Genitourinary System Coding Level of Care Code Est Pt Level 4 (30354) Diagnoses Rising PSA following treatment for malignant neoplasm of prostate R97.21 Prostate cancer metastatic to intraabdominal lymph node C61; C77.2 Erectile dysfunction due to and not concurrent with radiation therapy N52.35
== END 2022-11-09 14:03 | disposition home or self-care (01) ==
PROVIDERS: Visit Provider Urology
DX: R97.21 Rising PSA following treatment for malignant neoplasm of prostate (principal); C61 Malignant neoplasm of prostate; C77.2 Secondary and unspecified malignant neoplasm of intra-abdominal lymph nodes; N52.35 Erectile dysfunction following radiation therapy
CPT/HCPCS: 99214

== ENCOUNTER → 2022-11-09 12:57 | Outpatient (BNVA) | payer MEDICARE, SELFPAY | PROVIDERS: Visit Provider Urology | DX: C61 Malignant neoplasm of prostate (principal); C77.2 Secondary and unspecified malignant neoplasm of intra-abdominal lymph nodes; R97.21 Rising PSA following treatment for malignant neoplasm of prostate; N52.35 Erectile dysfunction following radiation therapy | CPT/HCPCS: 99212 ==

== ENCOUNTER 2022-11-11 09:44 | Outpatient (AMB) | payer MEDICARE, SELFPAY ==
[2022-11-11 09:55] LABS: ~PT, ~INR - Anti Coag Clinic 2.6 (0.9-1.1)
--- NOTE | 2022-11-11 10:00 | MHC.OFFVISCO ---
Intake Intake Visit Reasons: Anticoagulation Allergies No Known Allergies [No Known Allergies*] Allergy (Verified 11/11/22 09:51) Medication List - Last Reconciled 11/11/22 by Corrie Flores RN acetaminophen 650 mg PO Q6H PRN aspirin 81 mg PO DAILY atenolol 100 mg PO DAILY atorvastatin 40 mg PO BEDTIME 90 days [compression stockings knee-high 20 mmHg] ferrous sulfate 325 mg PO QAM furosemide 40 mg PO QAM lactulose 15 mL PO DAILY lisinopril 20 mg PO DAILY 90 days oxycodone-acetaminophen 5-325 mg 1 tab PO Q12H PRN 30 days pantoprazole 40 mg PO DAILY potassium chloride ER (Klor-Con M) 20 mEq PO QAM sennosides (senna) 8.6 mg PO tadalafil 10 mg PO DAILY 90 days verapamil 120 mg PO TID 90 days warfarin 5 mg See Protocol PO DAILY 90 days Nursing Note NO CP,SOB,DIET/MED CHANGES,FALLS OR SX OF BLEEDING. CONTINUE PRESRNT DOSE AND FOLLOW-UP IN 2 WEEKS GOOD UNDERSTANDING IOF DOSING INSTR. Anti-Coag Initial Assessment Social Hx Patient Tobacco Use Status: Never used Tobacco alcohol intake: current Alcohol intake frequency: holidays/special occasions only Cardiovascular Hx: HTN, Arrhythmias and Cardiomyopathy Musculoskeletal Hx: Other Blood Disorder Hx: Hyperlipidemia Hx: Prostate Neurological Hx: Stroke/TIA Cancer HX: Yes (prostate) Psych. Illness/Depression: No Coding Level of Care Code Est Patient Level 1 Diagnoses Current use of anticoagulant therapy Z79.01 Assessment & Plan Assessment & Plan (1) Current use of anticoagulant therapy: Code(s): Z79.01 - retirement (current) use of anticoagulants Category: Medical
== END 2022-11-11 10:01 | disposition home or self-care (01) ==
LOC: HO.ACS 09:44
PROVIDERS: PCP Internal Medicine; Visit Provider Internal Medicine
DX: Z79.01 Long term (current) use of anticoagulants (principal)

== ENCOUNTER → 2022-11-11 09:44 | Outpatient (BNVA) | payer MEDICARE, SELFPAY | PROVIDERS: PCP Internal Medicine; Visit Provider Internal Medicine | DX: Z95.2 Presence of prosthetic heart valve (principal); Z79.01 Long term (current) use of anticoagulants; Z51.81 Encounter for therapeutic drug level monitoring | CPT/HCPCS: 85610; 99211 ==

== ENCOUNTER → 2022-11-24 13:04 | Outpatient (BNVA) | payer MEDICARE, SELFPAY | PROVIDERS: PCP Internal Medicine; Visit Provider Internal Medicine | DX: I42.2 Other hypertrophic cardiomyopathy (principal); I48.19 Other persistent atrial fibrillation; I47.20 Ventricular tachycardia, unspecified; I10 Essential (primary) hypertension; G47.33 Obstructive sleep apnea (adult) (pediatric); Z86.73 Personal history of transient ischemic attack (TIA), and cerebral infarction without residual deficits; Z95.2 Presence of prosthetic heart valve; Z98.890 Other specified postprocedural states; Z95.818 Presence of other cardiac implants and grafts; Z95.1 Presence of aortocoronary bypass graft | CPT/HCPCS: 99212 ==

== ENCOUNTER 2022-11-25 10:16 | Outpatient (AMB) | payer OTHER, SELFPAY ==
[2022-11-25 10:31] LABS: Prothrombin Time Whole Bld POC 26.1 sec (11.1-13.5); ~PT, ~INR - Anti Coag Clinic 2.2 (0.9-1.1)
--- NOTE | 2022-11-25 10:34 | MHC.OFFVISCO ---
Intake Intake Visit Reasons: Anticoagulation Allergies No Known Allergies [No Known Allergies*] Allergy (Verified 11/25/22 10:25) Medication List - Last Reconciled 11/25/22 by Brissa Doll RN acetaminophen 650 mg PO Q6H PRN aspirin 81 mg PO DAILY atenolol 100 mg PO DAILY atorvastatin 40 mg PO BEDTIME 90 days [compression stockings knee-high 20 mmHg] ferrous sulfate 325 mg PO QAM furosemide 40 mg PO QAM lactulose 15 mL PO DAILY lisinopril 20 mg PO DAILY 90 days oxycodone-acetaminophen 5-325 mg 1 tab PO Q12H PRN 30 days pantoprazole 40 mg PO DAILY potassium chloride ER (Klor-Con M) 20 mEq PO QAM sennosides (senna) 8.6 mg PO tadalafil 10 mg PO DAILY 90 days verapamil 120 mg PO TID 90 days warfarin 5 mg See Protocol PO DAILY 90 days Nursing Note Amb to ACS feeling well Medications and supplements reviewed No changes in health, diet, medications, or supplements Denies any unusual signs and symptoms of bruising, bleeding Denies any new Chest pain, SOB, or clotting INR: 2.2 below therapeutic range (2.5-3.0) Nutritional guidance given:no greens today then balance greens and reds in diet, be consistent Dose: increase dose today to 5mg then resume usual dosing Monday, 2.5mg x 1 day and 5mg x 6 days; F/U INR: 2 weeks Patient verbalizes understanding of instructions given with accurate read back/ teach back of dosing Anti-Coag Initial Assessment Social Hx Patient Tobacco Use Status: Never used Tobacco alcohol intake: current Alcohol intake frequency: holidays/special occasions only Cardiovascular Hx: HTN, Arrhythmias and Cardiomyopathy Musculoskeletal Hx: Other Blood Disorder Hx: Hyperlipidemia Hx: Prostate Neurological Hx: Stroke/TIA Cancer HX: Yes (prostate) Psych. Illness/Depression: No Coding Level of Care Code Est Patient Level 1 Diagnoses Current use of anticoagulant therapy Z79.01 Time Spent (min) 15 Assessment & Plan Assessment & Plan (1) Current use of anticoagulant therapy: Code(s): Z79.01 - buttermaker (current) use of anticoagulants Category: Medical
== END 2022-11-25 10:38 | disposition home or self-care (01) ==
LOC: HO.ACS 10:16
PROVIDERS: PCP Internal Medicine; Visit Provider Internal Medicine
DX: Z79.01 Long term (current) use of anticoagulants (principal)

== ENCOUNTER → 2022-11-25 10:16 | Outpatient (BNVA) | payer OTHER, SELFPAY | PROVIDERS: PCP Internal Medicine; Visit Provider Internal Medicine | DX: Z95.2 Presence of prosthetic heart valve (principal); Z79.01 Long term (current) use of anticoagulants; Z51.81 Encounter for therapeutic drug level monitoring | CPT/HCPCS: 85610; 99211 ==

== ENCOUNTER 2022-12-09 09:46 | Outpatient (AMB) | payer OTHER, SELFPAY ==
[2022-12-09 10:16] LABS: Prothrombin Time Whole Bld POC 27.3 sec (11.1-13.5); ~PT, ~INR - Anti Coag Clinic 2.3 (0.9-1.1)
--- NOTE | 2022-12-09 10:21 | MHC.OFFVISCO ---
Intake Intake Visit Reasons: Anticoagulation Allergies No Known Allergies [No Known Allergies*] Allergy (Verified 12/09/22 10:10) Medication List - Last Reconciled 12/09/22 by Hanna Magaña RN acetaminophen 650 mg PO Q6H PRN aspirin 81 mg PO DAILY atenolol 100 mg PO DAILY atorvastatin 40 mg PO BEDTIME 90 days [compression stockings knee-high 20 mmHg] ferrous sulfate 325 mg PO QAM furosemide 40 mg PO QAM lactulose 15 mL PO DAILY lisinopril 20 mg PO DAILY 90 days oxycodone-acetaminophen 5-325 mg 1 tab PO Q12H PRN 30 days pantoprazole 40 mg PO DAILY potassium chloride ER (Klor-Con M) 20 mEq PO QAM sennosides (senna) 8.6 mg PO tadalafil 10 mg PO DAILY 90 days verapamil 120 mg PO TID 90 days warfarin 5 mg See Protocol PO DAILY 90 days Nursing Note INR 2.3 (2.5-3.5) out of therapeutic range Medications and supplements reviewed Patient status: WELL, WALKING 1 HOUR DAILY, Medications or supplements: NO CHANGES Diet: GOOD Denies any signs and symptoms of bleeding or clotting or unusual bruising Bleeding, bruising, clotting discussed Nutritional guidance given: REVIEW FOOD LIST WEEKLY, EAT MORE ORANGE AND REDS TO HELP RAISE THE INR, O GREENS TODAY BUT KEEP THEM WEEKLY IN YOUR DIET Dose: INCREASE WEEKLY DOSE 5MG DAILY F/U INR Date : PT REQUEST 3 WEEKS TO SEE FULL BENEFIT OF DOSE CHANGE, MAY GO ON VACATION IN DEC?? Patient verbalizing understanding of instructions given. Anti-Coag Initial Assessment Social Hx Patient Tobacco Use Status: Never used Tobacco alcohol intake: current Alcohol intake frequency: holidays/special occasions only Cardiovascular Hx: HTN, Arrhythmias and Cardiomyopathy Musculoskeletal Hx: Other Blood Disorder Hx: Hyperlipidemia Hx: Prostate Neurological Hx: Stroke/TIA Cancer HX: Yes (prostate) Psych. 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
== END 2022-12-09 10:40 | disposition home or self-care (01) ==
LOC: HO.ACS 09:46
PROVIDERS: PCP Internal Medicine; Visit Provider Internal Medicine
DX: Z79.01 Long term (current) use of anticoagulants (principal)

== ENCOUNTER → 2022-12-09 09:46 | Outpatient (BNVA) | payer OTHER, SELFPAY | PROVIDERS: PCP Internal Medicine; Visit Provider Internal Medicine | DX: Z95.2 Presence of prosthetic heart valve (principal); Z79.01 Long term (current) use of anticoagulants; Z51.81 Encounter for therapeutic drug level monitoring | CPT/HCPCS: 85610; 99211 ==

== ENCOUNTER 2022-12-22 14:19 | Outpatient (AMB) | payer OTHER, SELFPAY ==
[2022-12-22 14:45] VITALS: BP 134/74; PULSE 68; O2SAT 100; BMI 40.3
--- NOTE | 2022-12-22 14:45 | MHC.OFFVIS ---
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 Allergies No Known Allergies [No Known Allergies*] Allergy (Verified 12/22/22 15:43) Medication List - Last Reconciled 12/22/22 by Yamilka Bustillo MD acetaminophen 650 mg PO Q6H PRN aspirin 81 mg PO DAILY atenolol 100 mg PO DAILY atorvastatin 40 mg PO BEDTIME [compression stockings knee-high 20 mmHg] ferrous sulfate 325 mg PO QAM furosemide 40 mg PO QAM lactulose 15 mL PO DAILY lisinopril 20 mg PO DAILY 90 days oxycodone-acetaminophen 5-325 mg 1 tab PO Q12H PRN 30 days pantoprazole 40 mg PO DAILY potassium chloride ER (Klor-Con M) 20 mEq PO QAM sennosides (senna) 8.6 mg PO tadalafil 10 mg PO DAILY 90 days verapamil 120 mg PO TID 90 days warfarin 5 mg See Protocol PO DAILY 90 days Do you need a note to return to daycare/school/sports/work: No HPI sleep apnea HPI Details THIS 67 YEARS OLD VERY PLEASANT GENTLEMAN IS SIMPLE MINDED. HE IS MORBIDLY OBESE.. STILL CONTINUES TO HAVE SYMPTOMS OF EXCESSIVE SNORING AT NIGHT AND FREQUENT AWAKENINGS, ALONG WITH DAYTIME SLEEPINESS. HE DID HAVE SLEEP STUDY ON 11/11/2021, WHICH WAS POSITIVE FOR MODERATELY SEVERE OBSTRUCTIVE SLEEP APNEA WITH TOTAL SLEEP TIME AHI 29 AND SNORING FOR 613% OF THE SLEEP. PATIENT HAS BEEN TREATED FOR PROSTATE CANCER WITH RADIATION. HE HAS HYPERTENSION, CORONARY ARTERY DISEASE , AND HAS HAD MITRALVALVE REPLACEMENT. * SINCE HIS THE SLEEP STUDY, HE DID NOT COME BACK FOR FOLLOW-UP. 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 I EXPLAINED TO HIM THE FINDINGS OF SLEEP STUDY AND TOLD HIM THAT HE NEEDS TO BE TREATED WITH CPAP. HE WILL BE AGREEABLE TO GO ON CPAP THERAPY BUT TELLS ME THAT HE IS GOING TO HIS [facility] , FOR 4-6 WEEKS. PFSH Medical History Essential hypertension History of stroke Hypertrophic cardiomyopathy Leg edema Lumbar degenerative disc disease Morbid obesity Opiate dependence AXEL (obstructive sleep apnea) PAF (paroxysmal atrial fibrillation) Paroxysmal atrial flutter Peripheral vascular disease Poor circulation Seroma after procedure Ventricular tachyarrhythmia Surgical History History of cardiac catheterization History of cardiac pacemaker (~03/2014) Status post aorto-coronary artery bypass graft Status post implantation of mitral valve leaflet clip Status post mitral valve replacement Family History Father Diabetes Mother No problems noted. Social History Housing: Apartment Alcohol intake: current Alcohol intake frequency: holidays/special occasions only Alcohol type: hard liquor Patient Tobacco Use Status: Never used Tobacco e-Cigarette/Vaping Use: Never Used Second Hand Smoke Exposure: No service: No Current occupational status: unemployed Cognitive needs: Yes Hearing needs: No Vision needs: Yes Review of Systems Const All systems reviewed & are unremarkable except as noted in HPI and below Reports fatigue and Reports snoring Eyes Reports no additional complaints ENT Reports no additional complaints Card Denies irregular heart rhythm, Denies leg edema and Reports dyspnea on exertion Resp Denies cough, Reports dyspnea on exertion, Reports snoring and Denies wheezing GI Reports no additional complaints Reports no additional complaints and Reports other (Past history of treatment for prostate cancer) Musc Reports back pain Skin/Breast Reports system reviewed and no additional complaints, except as documented Neuro Reports no additional complaints Psych Reports no additional complaints Endo Reports fatigue Aller/Immun Denies wheezing Physical Exam Vital Signs: Last Vital Signs Pulse 68 12/22/22 14:45 BP 134/74 12/22/22 14:45 Pulse Ox 100 12/22/22 14:45 Oxygen Delivery Method Room Air 12/22/22 14:45 BMI result Body Mass Index 40.3 Const Other: Grossly obese General: comfortable, no acute distress, alert and awake Orientation/consciousness: patient oriented x3 HEENT Head: Yes normal to inspection General nose exam: No nasal polyps present and No nasal discharge present Face and sinus: Yes sinuses nontender Mouth: oropharynx normal Throat: No posterior oropharynx normal (Moderately crowded, Mallampati class 3. ) and No uvula laterally displaced (Patient has had uvulopalatoplasty) Eyes General: appearance normal, both eyes and all related structures Neck Neck: Yes normal visual inspection, Yes no lymphadenopathy, Yes trachea midline and Yes no JVD Thyroid: Thyroid normal Chest Chest palpation & inspection: normal inspection of the chest, normal palpation of entire chest wall and no tenderness Resp Effort & Inspection: normal respiratory effort Auscultation: clear to auscultation bilaterally, no crackles and no wheezes Cardio Palpation: normal PMI Rate: regular rate Rhythm: regular rhythm Heart sounds: no gallops and no murmurs Peripheral pulses: Peripheral pulses 2+ throughout GI Palpation (GI): Soft to palpation, nontender, No hepatosplenomegaly present and no masses Auscultation: normal bowel sounds Back/Spine/Pelvis Thoracic/Lumbar Spine: thoracic and lumbar spine normal to inspection and thoraco-lumbar ROM limited Skin General skin exam: no rashes or lesions noted Neuro General: patient oriented x3 and no focal motor deficits Cranial nerves: Yes CN's II-XII intact bilaterally Extrem General: Yes normal to inspection, Yes no clubbing, cyanosis or edema and Yes no calf tenderness Psych Appearance: grossly normal and well kempt Speech and movement: Normal speech and movement present Results Reviewed Results Reviewed: SLEEP STUDY ON 11/11 2021 TOTAL SLEEP TIME AHI 29, , AND SNORING FOR 13% OF THE SLEEP TIME Assessment & Plan Assessment & Plan (1) Morbid obesity: Comment: The patient is relatively inactive. He does have gross obesity. ,He is a simple mind it javier I do not expect him to lose much weight. Code(s): E66.01 - Morbid (severe) obesity due to excess calories (2) AXEL (obstructive sleep apnea): Comment: Almost severe obstructive sleep apnea. In view of his the associated, morbid obesity and cardiac disease, it is urgent for him to go on CPAP therapy. Eyes explained to him about the CPAP therapy. He is agreeable. We sending the order for CPAP. therapy to the DME provider * I hope the sleep study which is more than 1 year ago would still be acceptable , for him to go on CPAP. If not we may have to repeat the home-based sleep study once again. Code(s): G47.33 - Obstructive sleep apnea (adult) (pediatric) (3) Somnolence, daytime: Comment: General weakness and daytime sleepiness is definitely related to his obstructive sleep apnea. It is expected to improve after he goes on CPAP therapy. Code(s): R40.0 - Somnolence Coding Level of Care Code Est Pt Level 3 (88710) Diagnoses Morbid obesity E66.01 AXEL (obstructive sleep apnea) G47.33 Somnolence, daytime R40.0
== END 2022-12-22 15:02 | disposition home or self-care (01) ==
PROVIDERS: PCP Internal Medicine; Visit Provider Internal Medicine
DX: E66.01 Morbid (severe) obesity due to excess calories (principal); G47.33 Obstructive sleep apnea (adult) (pediatric); R40.0 Somnolence
CPT/HCPCS: 99213

== ENCOUNTER → 2022-12-22 14:19 | Outpatient (BNVA) | payer OTHER, SELFPAY | PROVIDERS: PCP Internal Medicine; Visit Provider Internal Medicine | DX: G47.33 Obstructive sleep apnea (adult) (pediatric) (principal); R40.0 Somnolence; E66.01 Morbid (severe) obesity due to excess calories; Z68.41 Body mass index [BMI] 40.0-44.9, adult | CPT/HCPCS: 99212 ==

== ENCOUNTER 2022-12-30 10:48 | Outpatient (AMB) | payer OTHER, SELFPAY ==
[2022-12-30 10:54] LABS: Prothrombin Time Whole Bld POC 43.2 sec (11.1-13.5); ~PT, ~INR - Anti Coag Clinic 3.6 (0.9-1.1)
--- NOTE | 2022-12-30 10:58 | MHC.OFFVISCO ---
Intake Intake Visit Reasons: Anticoagulation Allergies No Known Allergies [No Known Allergies*] Allergy (Verified 12/22/22 15:43) Nursing Note INR 3.6 out of therapeutic range- ptis aware it is out of range 2.5-3.0 Medications and supplements reviewed Patient status: ate too many reds this past week because INR was low previous visit, heis leaving tomorrow for [email or web address] x 1 month ( back home) he states he gets his INR checked weekly there Medications or supplements: no changes Diet: good Denies any signs and symptoms of bleeding or clotting or unusual bruising Bleeding, bruising, clotting discussed Nutritional guidance given: will eat greens today and weekly and will try to balance diet better Dose: keep same for now 5mg daily F/U INR Date: 1 month after the patient returns?? Patient verbalizing understanding of instructions given. Anti-Coag Initial Assessment Social Hx Patient Tobacco Use Status: Never used Tobacco alcohol intake: current Alcohol intake frequency: holidays/special occasions only Cardiovascular Hx: HTN, Arrhythmias and Cardiomyopathy Musculoskeletal Hx: Other Blood Disorder Hx: Hyperlipidemia Hx: Prostate Neurological Hx: Stroke/TIA Cancer HX: Yes (prostate) Psych. Illness/Depression: No Coding Level of Care Code Est Patient Level 1 Diagnoses Current use of anticoagulant therapy Z79.01 Results AMB INR Fingerstick AMB INR Fingerstick 3.6 Last Edit by Hanna Magaña RN on 12/30/22 10:55 MANUAL ENTRY Assessment & Plan Assessment & Plan (1) Current use of anticoagulant therapy: Code(s): Z79.01 - retirement (current) use of anticoagulants Category: Medical
== END 2022-12-30 11:02 | disposition home or self-care (01) ==
LOC: HO.ACS 10:48
PROVIDERS: PCP Internal Medicine; Visit Provider Internal Medicine
DX: Z79.01 Long term (current) use of anticoagulants (principal)

== ENCOUNTER → 2022-12-30 10:48 | Outpatient (BNVA) | payer OTHER, SELFPAY | PROVIDERS: PCP Internal Medicine; Visit Provider Internal Medicine | DX: Z95.2 Presence of prosthetic heart valve (principal); Z79.01 Long term (current) use of anticoagulants; Z51.81 Encounter for therapeutic drug level monitoring | CPT/HCPCS: 85610; 99211 ==

== ENCOUNTER 2023-02-17 10:45 | Outpatient (AMB) | payer OTHER, SELFPAY ==
[2023-02-17 11:23] LABS: Prothrombin Time Whole Bld POC 41.9 sec (11.1-13.5); ~PT, ~INR - Anti Coag Clinic 3.5 (0.9-1.1)
--- NOTE | 2023-02-17 11:28 | MHC.OFFVISCO ---
Intake Intake Visit Reasons: Anticoagulation Allergies No Known Allergies [No Known Allergies*] Allergy (Verified 02/17/23 11:19) Medication List - Last Reconciled 02/17/23 by Corrie Flores RN acetaminophen 650 mg PO Q6H PRN aspirin 81 mg PO DAILY atenolol 100 mg PO DAILY atorvastatin 40 mg PO BEDTIME [compression stockings knee-high 20 mmHg] ferrous sulfate 325 mg PO QAM 90 days furosemide 40 mg PO QAM lactulose 15 mL PO DAILY lisinopril 20 mg PO DAILY 90 days oxycodone-acetaminophen 5-325 mg 1 tab PO Q12H PRN 30 days pantoprazole 40 mg PO DAILY potassium chloride ER (Klor-Con M) 20 mEq PO QAM sennosides (senna) 8.6 mg PO tadalafil 10 mg PO DAILY 90 days verapamil 120 mg PO TID 90 days warfarin 5 mg See Protocol PO DAILY 90 days Nursing Note PT.JUST RETURNED FROM [facility]. PTY.STATES THAT HE FEELS VERY WELL AND HAS HAD NO PROBLEMS/CONCERNS SINCE LAST VIST HERE. NO CP,SOB OR MED CHANGES. DECREASE DOSE TODAY TO .5MGM THEN RESUME 5MGM DAILY AND FOLLOW-UP IN 2 WEEKS. GOOD UNDERSTANDING OFD OSING INSTR. Anti-Coag Initial Assessment Social Hx Patient Tobacco Use Status: Never used Tobacco alcohol intake: current Alcohol intake frequency: holidays/special occasions only Cardiovascular Hx: HTN, Arrhythmias and Cardiomyopathy Musculoskeletal Hx: Other Blood Disorder Hx: Hyperlipidemia Hx: Prostate Neurological Hx: Stroke/TIA Cancer HX: Yes (prostate) Psych. 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
== END 2023-02-17 11:31 | disposition home or self-care (01) ==
LOC: HO.ACS 10:45
PROVIDERS: PCP Internal Medicine; Visit Provider Internal Medicine
DX: Z79.01 Long term (current) use of anticoagulants (principal)

== ENCOUNTER → 2023-02-17 10:45 | Outpatient (BNVA) | payer OTHER, SELFPAY | PROVIDERS: PCP Internal Medicine; Visit Provider Internal Medicine | DX: Z95.2 Presence of prosthetic heart valve (principal); Z51.81 Encounter for therapeutic drug level monitoring; Z79.01 Long term (current) use of anticoagulants | CPT/HCPCS: 85610; 99211 ==

== ENCOUNTER 2023-02-22 13:45 | Outpatient (AMB) | payer OTHER, SELFPAY ==
--- NOTE | 2023-02-22 13:49 | A.OFFVIS_ITS ---
Intake Vital Signs 02/22/23 13:55 Height 6 ft 1 in Weight 310 lb BMI 40.9 BP 110/78 Blood Pressure Location Lt brachial Position Sitting Pulse 64 Pulse Source Pulse Oximeter Pulse Oximetry (%) 98 Oxygen Delivery Method Room Air Intake Visit Reasons: sleep apnea Intake Note: pt is here for follow up of AXEL, picking up c-pap on Monday. Feel good. 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 Required: No Allergies No Known Allergies [No Known Allergies*] Allergy (Verified 02/22/23 14:04) Medication List - Last Reconciled 02/22/23 by Yamilka Bustillo MD acetaminophen 650 mg PO Q6H PRN aspirin 81 mg PO DAILY atenolol 100 mg PO DAILY atorvastatin 40 mg PO BEDTIME [compression stockings knee-high 20 mmHg] ferrous sulfate 325 mg PO QAM 90 days furosemide 40 mg PO QAM lactulose 15 mL PO DAILY lisinopril 20 mg PO DAILY 90 days oxycodone-acetaminophen 5-325 mg 1 tab PO Q12H PRN 30 days pantoprazole 40 mg PO DAILY potassium chloride ER (Klor-Con M) 20 mEq PO QAM sennosides (senna) 8.6 mg PO tadalafil 10 mg PO DAILY 90 days verapamil 120 mg PO TID 90 days warfarin 5 mg See Protocol PO DAILY 90 days Do you need a note to return to daycare/school/sports/work: No HPI sleep apnea HPI Details This 67 years old very pleasant gentleman, is here for follow-up for his sleep apnea. He has been waiting to get his CPAP device which he has not gotten yet. 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 In the meantime he remains morbidly obese and has put on a few lb since last visit, Continues to have heavy snoring at night with frequent awakenings. [facility] Medical History Seroma after procedure Peripheral vascular disease Poor circulation Leg edema Morbid obesity Opiate dependence AXEL (obstructive sleep apnea) Lumbar degenerative disc disease PAF (paroxysmal atrial fibrillation) Essential hypertension History of stroke Paroxysmal atrial flutter Ventricular tachyarrhythmia Hypertrophic cardiomyopathy Surgical History Status post aorto-coronary artery bypass graft Status post mitral valve replacement Status post implantation of mitral valve leaflet clip History of cardiac pacemaker (~03/2014) History of cardiac catheterization Family History Father Diabetes Mother No problems noted. Social History Housing: Apartment Alcohol intake: current Alcohol intake frequency: holidays/special occasions only Alcohol type: hard liquor Patient Tobacco Use Status: Never used Tobacco e-Cigarette/Vaping Use: Never Used Second Hand Smoke Exposure: No service: No Current occupational status: unemployed Cognitive needs: Yes Hearing needs: No Vision needs: Yes Review of Systems Const All systems reviewed & are unremarkable except as noted in HPI and below Reports fatigue and Reports snoring Eyes Reports no additional complaints ENT Reports no additional complaints Card Denies irregular heart rhythm, Denies leg edema and Reports dyspnea on exertion Resp Denies cough, Reports dyspnea on exertion, Reports snoring and Denies wheezing GI Reports no additional complaints Reports no additional complaints and Reports other (Past history of treatment for prostate cancer) Musc Reports back pain Skin/Breast Reports system reviewed and no additional complaints, except as documented Neuro Reports no additional complaints Psych Reports no additional complaints Endo Reports fatigue Aller/Immun Denies wheezing Physical Exam Vital Signs: Last Vital Signs Pulse 64 02/22/23 13:55 BP 110/78 02/22/23 13:55 Pulse Ox 98 02/22/23 13:55 Oxygen Delivery Method Room Air 02/22/23 13:55 BMI result Body Mass Index 40.9 Const Other: Grossly obese General: comfortable, no acute distress, alert and awake Orientation/consciousness: patient oriented x3 HEENT Head: Yes normal to inspection General nose exam: No nasal polyps present and No nasal discharge present Face and sinus: Yes sinuses nontender Mouth: oropharynx normal Throat: No posterior oropharynx normal (Moderately crowded, Mallampati class 3. ) and No uvula laterally displaced (Patient has had uvulopalatoplasty) Eyes General: appearance normal, both eyes and all related structures Neck Neck: Yes normal visual inspection, Yes no lymphadenopathy, Yes trachea midline and Yes no JVD Thyroid: Thyroid normal Chest Chest palpation & inspection: normal inspection of the chest, normal palpation of entire chest wall and no tenderness Resp Effort & Inspection: normal respiratory effort Auscultation: clear to auscultation bilaterally, no crackles and no wheezes Cardio Palpation: normal PMI Rate: regular rate Rhythm: regular rhythm Heart sounds: no gallops and no murmurs Peripheral pulses: Peripheral pulses 2+ throughout GI Palpation (GI): Soft to palpation, nontender, No hepatosplenomegaly present and no masses Auscultation: normal bowel sounds Back/Spine/Pelvis Thoracic/Lumbar Spine: thoracic and lumbar spine normal to inspection and thoraco-lumbar ROM limited Skin General skin exam: no rashes or lesions noted Neuro General: patient oriented x3 and no focal motor deficits Cranial nerves: Yes CN's II-XII intact bilaterally Extrem General: Yes normal to inspection, Yes no clubbing, cyanosis or edema and Yes no calf tenderness Psych Appearance: grossly normal and well kempt Speech and movement: Normal speech and movement present Assessment & Plan Assessment & Plan (1) Morbid obesity: Comment: The patient is relatively inactive. He does have gross obesity. ,He is a simple mind it javier I do not expect him to lose much weight. Code(s): E66.01 - Morbid (severe) obesity due to excess calories (2) AXEL (obstructive sleep apnea): Comment: Almost severe obstructive sleep apnea. In view of his the associated, morbid obesity and cardiac disease, it is urgent for him to go on CPAP therapy. Eyes explained to him about the CPAP therapy. He is agreeable. We sending the order for CPAP. therapy to the DME provider * I hope the sleep study which is more than 1 year ago would still be acceptable , for him to go on CPAP. If not we may have to repeat the home-based sleep study once again. Code(s): G47.33 - Obstructive sleep apnea (adult) (pediatric) (3) Opiate dependence: Code(s): F11.20 - Opioid dependence, uncomplicated Qualifiers: Substance use status: uncomplicated Qualified Code(s): F11.20 - Opioid dependence, uncomplicated Plan: Case of morbid obesity, severe obstructive sleep apnea, history of opiates abuse in the past, not at present. Has been waiting to get his CPAP device which he will be now getting in the next few days. I talked to him about the importance of using CPAP. He indicated that he is looking forward to get the device and start using it. Talked about the weight reduction. He tries to cut down the portions and calories, but is hard for him to do any exercise. Coding Level of Care Code Est Pt Level 3 (07803) Diagnoses Morbid obesity E66.01 AXEL (obstructive sleep apnea) G47.33 Uncomplicated opioid dependence F11.20 Substance use status: uncomplicated
[2023-02-22 13:55] VITALS: BP 110/78; PULSE 64; O2SAT 98; BMI 40.9
== END 2023-02-22 14:07 | disposition home or self-care (01) ==
PROVIDERS: PCP Internal Medicine; Visit Provider Internal Medicine
DX: E66.01 Morbid (severe) obesity due to excess calories (principal); G47.33 Obstructive sleep apnea (adult) (pediatric); F11.20 Opioid dependence, uncomplicated
CPT/HCPCS: 99213

== ENCOUNTER → 2023-02-22 13:45 | Outpatient (BNVA) | payer OTHER, SELFPAY | PROVIDERS: PCP Internal Medicine; Visit Provider Internal Medicine | DX: G47.33 Obstructive sleep apnea (adult) (pediatric) (principal); F11.20 Opioid dependence, uncomplicated; E66.01 Morbid (severe) obesity due to excess calories; Z68.41 Body mass index [BMI] 40.0-44.9, adult | CPT/HCPCS: 99212 ==

== ENCOUNTER 2023-03-03 10:49 | Outpatient (AMB) | payer OTHER, SELFPAY ==
[2023-03-03 10:56] LABS: Prothrombin Time Whole Bld POC 33.3 sec (11.1-13.5); ~PT, ~INR - Anti Coag Clinic 2.8 (0.9-1.1)
--- NOTE | 2023-03-03 11:02 | MHC.OFFVISCO ---
Intake Intake Visit Reasons: Anticoagulation Allergies No Known Allergies [No Known Allergies*] Allergy (Verified 03/03/23 10:52) Medication List - Last Reconciled 03/03/23 by Hanna Magaña RN acetaminophen 650 mg PO Q6H PRN aspirin 81 mg PO DAILY atenolol 100 mg PO DAILY atorvastatin 40 mg PO BEDTIME [compression stockings knee-high 20 mmHg] ferrous sulfate 325 mg PO QAM 90 days furosemide 40 mg PO QAM lactulose 15 mL PO DAILY lisinopril 20 mg PO DAILY 90 days oxycodone-acetaminophen 5-325 mg 1 tab PO Q12H PRN 30 days pantoprazole 40 mg PO DAILY potassium chloride ER (Klor-Con M) 20 mEq PO QAM sennosides (senna) 8.6 mg PO tadalafil 10 mg PO DAILY 90 days verapamil 120 mg PO TID 90 days warfarin 5 mg See Protocol PO DAILY 90 days Nursing Note INR: 2.8 in therapeutic range Medications and supplements reviewed No changes in health, diet, medications, or supplements, Denies any signs and symptoms of bleeding or bruising or clotting. Bleeding, bruising, clotting discussed Nutritional guidance given - KEEP EATING MIX OF FRUITS AND VEGETABLES , MAKE SURE TO EAT WEEKLY GREENS Dose: KEEP SAME DOSE 5MG DAILY F/U INR: 2 WEEKS - SAME DAY UROLOGY APPT Patient verbalizes understanding of instructions given Anti-Coag Initial Assessment Social Hx Patient Tobacco Use Status: Never used Tobacco alcohol intake: current Alcohol intake frequency: holidays/special occasions only Cardiovascular Hx: HTN, Arrhythmias and Cardiomyopathy Musculoskeletal Hx: Other Blood Disorder Hx: Hyperlipidemia Hx: Prostate Neurological Hx: Stroke/TIA Cancer HX: Yes (prostate) Psych. Illness/Depression: No Coding Level of Care Code Est Patient Level 1 Diagnoses Current use of anticoagulant therapy Z79.01 Assessment & Plan Assessment & Plan (1) Current use of anticoagulant therapy: Code(s): Z79.01 - halfway (current) use of anticoagulants Category: Medical
== END 2023-03-03 11:05 | disposition home or self-care (01) ==
LOC: HO.ACS 10:49
PROVIDERS: PCP Internal Medicine; Visit Provider Internal Medicine
DX: Z79.01 Long term (current) use of anticoagulants (principal)

== ENCOUNTER → 2023-03-03 10:49 | Outpatient (BNVA) | payer OTHER, SELFPAY | PROVIDERS: PCP Internal Medicine; Visit Provider Internal Medicine | DX: Z95.2 Presence of prosthetic heart valve (principal); Z79.01 Long term (current) use of anticoagulants; Z51.81 Encounter for therapeutic drug level monitoring | CPT/HCPCS: 85610; 99211 ==

== ENCOUNTER 2023-03-06 09:41 | Outpatient (REF) | payer OTHER, SELFPAY ==
[2023-03-06 10:50] LABS: Blood Urea Nitrogen 15 mg/dL (9-16); Estimated Glomerular Filt Rate > 60
[2023-03-06 11:05] LABS: Prostate Specific Antigen 0.29 ng/mL (<0.05-4.0)
[2023-03-10 01:19] LABS: Testosterone, Total 130 ng/dL (250-1100)
== END 2023-03-06 09:42 | disposition home or self-care (01) ==
LOC: HO.LAB 09:41
PROVIDERS: PCP Internal Medicine; Visit Provider Urology
DX: R97.21 Rising PSA following treatment for malignant neoplasm of prostate (principal); Z12.5 Encounter for screening for malignant neoplasm of prostate
CPT/HCPCS: 36415; 82565; 84153; 84403; 84520

== ENCOUNTER 2023-03-17 09:46 | Outpatient (AMB) | payer OTHER, SELFPAY ==
[2023-03-17 10:22] LABS: Prothrombin Time Whole Bld POC 23.7 sec (11.1-13.5)
--- NOTE | 2023-03-17 10:25 | MHC.OFFVISCO ---
Intake Intake Visit Reasons: Anticoagulation Allergies No Known Allergies [No Known Allergies*] Allergy (Verified 03/17/23 10:17) Medication List - Last Reconciled 03/17/23 by Brissa Doll RN acetaminophen 650 mg PO Q6H PRN aspirin 81 mg PO DAILY atenolol 100 mg PO DAILY atorvastatin 40 mg PO BEDTIME [compression stockings knee-high 20 mmHg] ferrous sulfate 325 mg PO QAM 90 days furosemide 40 mg PO QAM lactulose 15 mL PO DAILY lisinopril 20 mg PO DAILY 90 days oxycodone-acetaminophen 5-325 mg 1 tab PO Q12H PRN 30 days pantoprazole 40 mg PO DAILY potassium chloride ER (Klor-Con M) 20 mEq PO QAM sennosides (senna) 8.6 mg PO tadalafil 10 mg PO DAILY 90 days verapamil 120 mg PO TID 90 days warfarin 5 mg See Protocol PO DAILY 90 days Nursing Note Amb to [facility] feeling well Medications and supplements reviewed No changes in health, diet, medications, or supplements Denies any unusual signs and symptoms of bruising, bleeding Denies any new Chest pain, SOB, or clotting INR: 2.0 below therapeutic range (2.5-3.0) Nutritional guidance given: no greens x 2 days, reds to help raise then balance greens and reds in diet Dose: increase dose today to 7.5mg (vs 5mg) then resume usual dosing; 5mg daily F/U INR: 2 weeks Patient verbalizes understanding of instructions given with accurate read back/ teach back of dosingINR 2.[address] Nazario office, spoke with Lynne ASCENCIO re dosing plan, dietary and ?Lovenox, however when reviewed with pt sts not going to do injections Anti-Coag Initial Assessment Social Hx Patient Tobacco Use Status: Never used Tobacco alcohol intake: current Alcohol intake frequency: holidays/special occasions only Cardiovascular Hx: HTN, Arrhythmias and Cardiomyopathy Musculoskeletal Hx: Other Blood Disorder Hx: Hyperlipidemia Hx: Prostate Neurological Hx: Stroke/TIA Cancer HX: Yes (prostate) Psych. Illness/Depression: No Questionnaires HAS-BLED Does the patient had uncontrolled Hypertension?: No Does the patient have renal disease?: No Does the patient have liver disease?: No Does the patient have a history of stroke?: Yes Has the patient had major bleeding or predisposition to bleeding?: Yes Does the patient have labile INRs?: Yes Is the patient over 65 years of age?: Yes Is the patient on medications that gives them a predisposition to bleeding?: Yes Does the patient use alcohol?: No HAS-BLED Score: 5 CHADSVASC Age: 66-74 Gender: Male Does the patient have a history of CHF?: No Does the patient have a history of Hypertension?: Yes Does the patient have a history of Stroke/TIA/Thromboembolism?: Yes Does the patient have a history of Vascular Disease (prior PA, PAD or aortic plaque)?: No Does the patient have a history of Diabetes?: No CHADS VACS Score: 4 Devan Prediction Score Rsk VTE Active Cancer: Yes Previous VTE, excluding superficial vein thrombosis: No Reduced mobility: No Already known Thrombophilic Condition: Yes With-in last month Trauma and/or Surgery: No Elderly 70 year or older: No Heart and/or Respiratory Failure: No Acute Myocardial infarction and/or Ischemic Stroke: Yes Acute Infection and/or Rheumatologic Disorder: No Obesity (BMI 30 or greater): Yes Ongoing Hormonal Treatment: No Score: 8 Devan Score less than 4; Low Risk of VTE Devan Score 4 or greater; High Risk of VTE Coding Level of Care Code Est Patient Level 2 Diagnoses Current use of anticoagulant therapy Z79.01 Time Spent (min) 30 Assessment & Plan Assessment & Plan (1) Current use of anticoagulant therapy: Code(s): Z79.01 - correction (current) use of anticoagulants Category: Medical
== END 2023-03-17 15:15 | disposition home or self-care (01) ==
LOC: HO.ACS 09:46
PROVIDERS: PCP Internal Medicine; Visit Provider Internal Medicine
DX: Z79.01 Long term (current) use of anticoagulants (principal)

== ENCOUNTER → 2023-03-17 09:46 | Outpatient (BNVA) | payer OTHER, SELFPAY | PROVIDERS: PCP Internal Medicine; Visit Provider Internal Medicine | DX: Z95.2 Presence of prosthetic heart valve (principal); Z79.01 Long term (current) use of anticoagulants; Z51.81 Encounter for therapeutic drug level monitoring | CPT/HCPCS: 85610; 99212 ==

== ENCOUNTER 2023-03-29 15:03 | Outpatient (AMB) | payer OTHER, MEDICAID, SELFPAY ==
[2023-03-29 15:16] VITALS: BP 132/80; BMI 40.8
--- NOTE | 2023-03-29 15:16 | MHC.PC.OV ---
Vital Signs 03/29/23 15:16 Height 6 ft 1 in Weight 309 lb BMI 40.8 BP 132/80 Blood Pressure Location Lt brachial Position Sitting Intake Visit Reasons: Annual Exam Intake Note: Patient here for an annual physical exam Final Inspector And Tester Required: No Accompanied by: Self / Same As Patient Allergies No Known Allergies [No Known Allergies*] Allergy (Verified 03/29/23 15:30) Medication List - Last Reconciled 03/29/23 by Barbara Peterson MD acetaminophen 650 mg PO Q6H PRN aspirin 81 mg PO DAILY atenolol 100 mg PO DAILY atorvastatin 40 mg PO BEDTIME [compression stockings knee-high 20 mmHg] ferrous sulfate 325 mg PO QAM 90 days furosemide 40 mg PO QAM lactulose 15 mL PO DAILY lisinopril 20 mg PO DAILY 90 days oxycodone-acetaminophen 5-325 mg 1 tab PO Q12H PRN 30 days potassium chloride ER (Klor-Con M) 20 mEq PO QAM tadalafil 10 mg PO DAILY 90 days verapamil 120 mg PO TID 90 days warfarin 5 mg See Protocol PO DAILY 90 days Tobacco use date assessed: 06/23/22 Fall risk assessment: No Falls in past year Last assessed Fall Risk: 03/29/23 Dental Screening Dental Screen Date: 03/29/23 Did you have a dental visit in the last 12 months?: Yes Did you have a dental problem in the last 6 months where you did not have access to dental care?: No Was dental information given to patient?: Patient has dentist HPI HPI Comments History of Present Illness Details This is a 67-year-old male with morbid obesity, opiate dependence, persistent atrial fibrillation and hypertrophic cardiomyopathy that comes for his physical exam. Has a BMI of 40.8 and declines weight loss surgery. Was advised to diet and exercise as tolerated. On opiates for a very long time due to chronic back pain. Reports no side effects and no signs of addiction. On warfarin for atrial fibrillation and denies any active bleeding. Hypertrophic cardiomyopathy is follow by cardiology and denies gaining 5 lb in a week. No chest pain or shortness of breath. Last colonoscopy was 2021 in [facility] and was normal. [facility] Medical History Seroma after procedure Peripheral vascular disease Poor circulation Leg edema Morbid obesity Opiate dependence AXEL (obstructive sleep apnea) Lumbar degenerative disc disease PAF (paroxysmal atrial fibrillation) Essential hypertension History of stroke Paroxysmal atrial flutter Ventricular tachyarrhythmia Hypertrophic cardiomyopathy Surgical History (Updated 03/29/23 @ 15:34 by Barbara Peterson MD) H/O colonoscopy Status post aorto-coronary artery bypass graft Status post mitral valve replacement Status post implantation of mitral valve leaflet clip History of cardiac pacemaker (~03/2014) History of cardiac catheterization Family History Father Diabetes Mother No problems noted. Social History Housing: Apartment Alcohol intake: current Alcohol intake frequency: holidays/special occasions only Alcohol type: hard liquor Patient Tobacco Use Status: Never used Tobacco e-Cigarette/Vaping Use: Never Used Second Hand Smoke Exposure: No service: No Current occupational status: unemployed Cognitive needs: Yes Hearing needs: No Vision needs: Yes Questionnaire Thrive Questionnaire Date Thrive assessed: 06/23/22 JOAQUIM-7 AMB Questionnaire JOAQUIM-7 Date JOAQUIM - 7 assessed: 06/23/22 Source: Developed by Drs. Anup Nieto, Hilda Terry, Florian Kearney and colleagues, with an educational yumi from [employer]. Review of Systems Const All systems reviewed & are unremarkable except as noted in HPI and below Eyes Reports no additional complaints, Denies change in vision and Denies other visual disturbances Card Denies chest pain at rest, Denies chest pain with activity, Denies edema, Denies irregular heart rhythm, Denies claudication, Denies dyspnea, Denies dyspnea on exertion, Denies orthopnea, Denies paroxysmal nocturnal dyspnea and Denies slow heart rate Resp Denies cough, Denies dyspnea and Denies dyspnea on exertion GI Denies abdominal pain, Denies change in bowel habits, Denies excessive flatus, Denies nausea and Denies vomiting Denies urinary hesitancy, Denies urinary incontinence and Denies urinary urgency Musc Denies abnormal gait, Denies atrophy, Denies deformity and Denies limited range of motion Skin/Breast Denies bleeding lesions, Denies changing lesions and Denies rash Neuro Denies abnormal gait and Denies lack of coordination Physical exam (Primary Care) Vital Signs: Last Vital Signs BP 132/80 03/29/23 15:16 BMI result Body Mass Index 40.8 Tobacco/Smoking Status: Tobacco use Status Tobacco use date assessed 06/23/22 03/29/23 15:24 Patient Tobacco Use Status Never used Tobacco 03/29/23 15:24 e-Cigarette/Vaping Use Never Used 03/29/23 15:24 Thrive Assessment: Date of Thrive Assessment Date Thrive assessed 06/23/22 03/29/23 15:24 Const Orientation/consciousness: patient oriented x3 HENMT Head: Yes normal to inspection, Yes normocephalic and Yes atraumatic Ears: external ears normal Eyes General: appearance normal, both eyes and all related structures Eyelids: Yes eyelids normal Conjunctivae: conjunctivae normal Neck Neck: Yes normal visual inspection and Yes supple Resp Effort & Inspection: normal respiratory effort Auscultation: clear to auscultation bilaterally Cardio Jugular venous distension: no JVD Rate: regular rate Rhythm: regular rhythm Heart sounds: S1 normal heart sound present and S2 normal heart sound present GI Inspection: Yes normal to inspection Palpation (GI): Soft to palpation and nontender Auscultation: normal bowel sounds Skin General skin exam: no rashes or lesions noted Neuro General: patient oriented x3 and no focal motor deficits Extrem General: Yes full ROM Psych Appearance: grossly normal Office Procedures Flu Questionnaire Does the patient have a severe egg allergy?: No Immunizations flu vacc [id number] 6mos up(PF) 60 mcg(15 mcgx4)/0.5 mL IM syringe Performing Provider: Barbara Peterson MD [facility] Documented (not given) by: ROSMERY Davies on 03/29/23 15:26 Reason Not Given: Patient Refused Assessment and Plan Assessment & Plan (1) Physical exam: Code(s): Z00.00 - Encounter for general adult medical examination without abnormal findings Plan: Repeat in a year. (2) Persistent atrial fibrillation: Code(s): I48.19 - Other persistent atrial fibrillation Plan: Continue warfarin. (3) Morbid obesity: Comment: The patient is relatively inactive. He does have gross obesity. ,He is a simple mind it javier I do not expect him to lose much weight. Code(s): E66.01 - Morbid (severe) obesity due to excess calories Plan: Start diet and exercise. BMI goal is less than 30. (4) Opiate dependence: Code(s): F11.20 - Opioid dependence, uncomplicated Qualifiers: Substance use status: uncomplicated Qualified Code(s): F11.20 - Opioid dependence, uncomplicated Plan: Continue PAs as needed. (5) Hypertrophic cardiomyopathy: Code(s): I42.2 - Other hypertrophic cardiomyopathy Plan: Follow-up with Cardiology. The goal is to not gain 5 lb in a week. Orders: Orders Complete Blood Count Auto Diff Today D64.9 - Anemia, unspecified Lipid Panel Today E78.5 - Hyperlipidemia, unspecified Influenza [id number] Immunization Today Z23 - Encounter for immunization IRON PROFILE Today D64.9 - Anemia, unspecified Vitamin D 25-OH Total Today E55.9 - Vitamin D deficiency, unspecified Comprehensive [place]. Panel Fast Today I10 - Essential (primary) hypertension Coding Level of Care Code Est Pt Prev Care >65y(18546) Diagnoses Physical exam Z00.00 Persistent atrial fibrillation I48.19 Morbid obesity E66.01 Uncomplicated opioid dependence F11.20 Substance use status: uncomplicated Hypertrophic cardiomyopathy I42.2 Time Spent (min) 34
== END 2023-03-29 15:38 | disposition home or self-care (01) ==
PROVIDERS: PCP Internal Medicine; Visit Provider Internal Medicine
DX: Z00.00 Encounter for general adult medical examination without abnormal findings (principal); I48.19 Other persistent atrial fibrillation; E66.01 Morbid (severe) obesity due to excess calories; F11.20 Opioid dependence, uncomplicated; I42.2 Other hypertrophic cardiomyopathy; Z68.41 Body mass index [BMI] 40.0-44.9, adult
CPT/HCPCS: 99397

== ENCOUNTER 2023-03-31 09:43 | Outpatient (AMB) | payer OTHER, MEDICAID, SELFPAY ==
--- NOTE | 2023-03-31 10:01 | MHC.OFFVISCO ---
Intake Intake Visit Reasons: Anticoagulation Allergies No Known Allergies [No Known Allergies*] Allergy (Verified 03/31/23 09:50) Medication List - Last Reconciled 03/31/23 by Corrie Flores RN acetaminophen 650 mg PO Q6H PRN aspirin 81 mg PO DAILY atenolol 100 mg PO DAILY atorvastatin 40 mg PO BEDTIME [compression stockings knee-high 20 mmHg] ferrous sulfate 325 mg PO QAM 90 days furosemide 40 mg PO QAM lactulose 15 mL PO DAILY lisinopril 20 mg PO DAILY 90 days oxycodone-acetaminophen 5-325 mg 1 tab PO Q12H PRN 30 days potassium chloride ER (Klor-Con M) 20 mEq PO QAM tadalafil 10 mg PO DAILY 90 days verapamil 120 mg PO TID 90 days warfarin 5 mg See Protocol PO DAILY 90 days Nursing Note NO CP,SOB,DIET/MED CHANGES,FALLS OR SX OF BLEEDING. CONTINUE PRESENT DOSE AND FOLLOW-UP IN 2 WEEKS.' GOOD UNDERSTANDING OF DOSING INSTR. Anti-Coag Initial Assessment Social Hx Patient Tobacco Use Status: Never used Tobacco alcohol intake: current Alcohol intake frequency: holidays/special occasions only Cardiovascular Hx: HTN, Arrhythmias and Cardiomyopathy Musculoskeletal Hx: Other Blood Disorder Hx: Hyperlipidemia Hx: Prostate Neurological Hx: Stroke/TIA Cancer HX: Yes (prostate) Psych. 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
[2023-03-31 16:41] LABS: Prothrombin Time Whole Bld POC 27.1 sec (11.1-13.5); ~PT, ~INR - Anti Coag Clinic 2.3 (0.9-1.1)
== END 2023-03-31 10:02 | disposition home or self-care (01) ==
LOC: HO.ACS 09:43
PROVIDERS: PCP Internal Medicine; Visit Provider Internal Medicine
DX: Z79.01 Long term (current) use of anticoagulants (principal)

== ENCOUNTER → 2023-03-31 09:43 | Outpatient (BNVA) | payer OTHER, MEDICAID, SELFPAY | PROVIDERS: PCP Internal Medicine; Visit Provider Internal Medicine | DX: Z95.2 Presence of prosthetic heart valve (principal); Z79.01 Long term (current) use of anticoagulants; Z51.81 Encounter for therapeutic drug level monitoring | CPT/HCPCS: 85610; 99211 ==

== ENCOUNTER 2023-04-13 13:43 | Outpatient (AMB) | payer OTHER, SELFPAY ==
[2023-04-13 13:48] VITALS: BP 120/80; PULSE 62; O2SAT 97; BMI 41.0
--- NOTE | 2023-04-13 13:48 | MHC.OFFVIS ---
Intake Vital Signs 04/13/23 13:48 Height 6 ft 1 in Weight 311 lb BMI 41.0 BP 120/80 Blood Pressure Location Lt brachial Position Sitting Pulse 62 Pulse Source Pulse Oximeter Pulse Oximetry (%) 97 Oxygen Delivery Method Room Air Intake Visit Reasons: sleep apnea Intake Note: pt is here for follow up of AXEL, started machine in January and doing very well. Please send in order for filters. 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 Allergies No Known Allergies [No Known Allergies*] Allergy (Verified 04/13/23 14:00) Medication List - Last Reconciled 04/13/23 by Yamilka Bustillo MD acetaminophen 650 mg PO Q6H PRN aspirin 81 mg PO DAILY atenolol 100 mg PO DAILY atorvastatin 40 mg PO BEDTIME [compression stockings knee-high 20 mmHg] ferrous sulfate 325 mg PO QAM 90 days furosemide 40 mg PO QAM lactulose 15 mL PO DAILY lisinopril 20 mg PO DAILY 90 days oxycodone-acetaminophen 5-325 mg 1 tab PO Q12H PRN 30 days potassium chloride ER (Klor-Con M) 20 mEq PO QAM tadalafil 10 mg PO DAILY 90 days verapamil 120 mg PO TID 90 days warfarin 5 mg See Protocol PO DAILY 90 days Do you need a note to return to daycare/school/sports/work: No HPI sleep apnea HPI Details This 67 years old very pleasant gentleman started using his CPAP in January, and has been using it very regularly every night. He sleeps good. CPAP device is working very well . He loves to eat and does not do much exercise. So he has not been able to lose any weight. [facility] Medical History Seroma after procedure Peripheral vascular disease Poor circulation Leg edema Morbid obesity Opiate dependence AXEL (obstructive sleep apnea) Lumbar degenerative disc disease PAF (paroxysmal atrial fibrillation) Essential hypertension History of stroke Paroxysmal atrial flutter Ventricular tachyarrhythmia Hypertrophic cardiomyopathy Surgical History H/O colonoscopy Status post aorto-coronary artery bypass graft Status post mitral valve replacement Status post implantation of mitral valve leaflet clip History of cardiac pacemaker (~03/2014) History of cardiac catheterization Family History Father Diabetes Mother No problems noted. Social History Housing: Apartment Alcohol intake: current Alcohol intake frequency: holidays/special occasions only Alcohol type: hard liquor Patient Tobacco Use Status: Never used Tobacco e-Cigarette/Vaping Use: Never Used Second Hand Smoke Exposure: No service: No Current occupational status: unemployed Cognitive needs: Yes Hearing needs: No Vision needs: Yes Review of Systems Const All systems reviewed & are unremarkable except as noted in HPI and below Reports fatigue and Reports snoring Eyes Reports no additional complaints ENT Reports no additional complaints Card Denies irregular heart rhythm, Denies leg edema and Reports dyspnea on exertion Resp Denies cough, Reports dyspnea on exertion, Reports snoring and Denies wheezing GI Reports no additional complaints Reports no additional complaints and Reports other (Past history of treatment for prostate cancer) Musc Reports back pain Skin/Breast Reports system reviewed and no additional complaints, except as documented Neuro Reports no additional complaints Psych Reports no additional complaints Endo Reports fatigue Aller/Immun Denies wheezing Physical Exam Vital Signs: Last Vital Signs Pulse 62 04/13/23 13:48 BP 120/80 04/13/23 13:48 Pulse Ox 97 04/13/23 13:48 Oxygen Delivery Method Room Air 04/13/23 13:48 BMI result Body Mass Index 41.0 Const Other: Grossly obese General: comfortable, no acute distress, alert and awake Orientation/consciousness: patient oriented x3 HEENT Head: Yes normal to inspection General nose exam: No nasal polyps present and No nasal discharge present Face and sinus: Yes sinuses nontender Mouth: oropharynx normal Throat: No posterior oropharynx normal (Moderately crowded, Mallampati class 3. ) and No uvula laterally displaced (Patient has had uvulopalatoplasty) Eyes General: appearance normal, both eyes and all related structures Neck Neck: Yes normal visual inspection, Yes no lymphadenopathy, Yes trachea midline and Yes no JVD Thyroid: Thyroid normal Chest Chest palpation & inspection: normal inspection of the chest, normal palpation of entire chest wall and no tenderness Resp Effort & Inspection: normal respiratory effort Auscultation: clear to auscultation bilaterally, no crackles and no wheezes Cardio Palpation: normal PMI Rate: regular rate Rhythm: regular rhythm Heart sounds: no gallops and no murmurs Peripheral pulses: Peripheral pulses 2+ throughout GI Palpation (GI): Soft to palpation, nontender, No hepatosplenomegaly present and no masses Auscultation: normal bowel sounds Back/Spine/Pelvis Thoracic/Lumbar Spine: thoracic and lumbar spine normal to inspection and thoraco-lumbar ROM limited Skin General skin exam: no rashes or lesions noted Neuro General: patient oriented x3 and no focal motor deficits Cranial nerves: Yes CN's II-XII intact bilaterally Extrem General: Yes normal to inspection, Yes no clubbing, cyanosis or edema and Yes no calf tenderness Psych Appearance: grossly normal and well kempt Speech and movement: Normal speech and movement present Results Reviewed Results Reviewed: Compliance report is reviewed. He has used 30/30 nights , 100% Average use per night 6 hours 4 minute. Average pressure 14-15 cm. There is no significant air leak. Residual AHI 1.8 Assessment & Plan Assessment & Plan (1) Morbid obesity: Comment: The patient is relatively inactive. He does have gross obesity. ,He is a simple minded javier . I do not expect him to lose much weight. Code(s): E66.01 - Morbid (severe) obesity due to excess calories Plan: I did discuss with him about the diet and need to do brisk walking for a few miles every day. (2) AXEL (obstructive sleep apnea): Comment: He does have severe obstructive Sleep apnea He is very very compliant and benefits from the use of CPAP. His sleep quality is much better. Code(s): G47.33 - Obstructive sleep apnea (adult) (pediatric) Plan: Commended for his good compliance and he is advised to continue using it every night. He told me that he would be traveling to [facility]. I advised him to take the CPAP apparatus with him wherever he goes. Coding Level of Care Code Est Pt Level 3 (16261) Diagnoses Morbid obesity E66.01 AXEL (obstructive sleep apnea) G47.33
== END 2023-04-13 14:01 | disposition home or self-care (01) ==
PROVIDERS: PCP Internal Medicine; Visit Provider Internal Medicine
DX: E66.01 Morbid (severe) obesity due to excess calories (principal); G47.33 Obstructive sleep apnea (adult) (pediatric)
CPT/HCPCS: 99213

== ENCOUNTER → 2023-04-13 13:43 | Outpatient (BNVA) | payer OTHER, SELFPAY | PROVIDERS: PCP Internal Medicine; Visit Provider Internal Medicine | DX: G47.33 Obstructive sleep apnea (adult) (pediatric) (principal); E66.01 Morbid (severe) obesity due to excess calories; Z68.41 Body mass index [BMI] 40.0-44.9, adult | CPT/HCPCS: 99212 ==

== ENCOUNTER 2023-04-14 10:47 | Outpatient (AMB) | payer OTHER, SELFPAY ==
[2023-04-14 10:54] LABS: Prothrombin Time Whole Bld POC 44.6 sec (11.1-13.5); ~PT, ~INR - Anti Coag Clinic 3.7 (0.9-1.1)
--- NOTE | 2023-04-14 10:54 | MHC.OFFVISCO ---
Intake Intake Visit Reasons: Anticoagulation Allergies No Known Allergies [No Known Allergies*] Allergy (Verified 04/14/23 10:47) Medication List - Last Reconciled 04/14/23 by Brissa Doll RN acetaminophen 650 mg PO Q6H PRN aspirin 81 mg PO DAILY atenolol 100 mg PO DAILY atorvastatin 40 mg PO BEDTIME [compression stockings knee-high 20 mmHg] ferrous sulfate 325 mg PO QAM 90 days furosemide 40 mg PO QAM lactulose 15 mL PO DAILY lisinopril 20 mg PO DAILY 90 days oxycodone-acetaminophen 5-325 mg 1 tab PO Q12H PRN 30 days potassium chloride ER (Klor-Con M) 20 mEq PO QAM tadalafil 10 mg PO DAILY 90 days verapamil 120 mg PO TID 90 days warfarin 5 mg See Protocol PO DAILY 90 days Nursing Note Amb to [facility] feeling well Medications and supplements reviewed No changes in health, diet, medications, or supplements Denies any unusual signs and symptoms of bruising, bleeding Denies any new Chest pain, SOB, or clotting INR: 3.7 above therapeutic range Nutritional guidance given:pt indicates he has been eating a lot of mangos, reviewed raising effect with most fruits, have some good greens today and tomorrow and balance greens and reds in diet Dose: decrease dose today to 2.5mg the resume usual dosing tomorrow 5mg daily F/U INR: 2 weeks Patient verbalizes understanding of instructions given with accurate read back/ teach back of dosing Anti-Coag Initial Assessment Social Hx Patient Tobacco Use Status: Never used Tobacco alcohol intake: current Alcohol intake frequency: holidays/special occasions only Cardiovascular Hx: HTN, Arrhythmias and Cardiomyopathy Musculoskeletal Hx: Other Blood Disorder Hx: Hyperlipidemia Hx: Prostate Neurological Hx: Stroke/TIA Cancer HX: Yes (prostate) Psych. 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
== END 2023-04-14 11:00 | disposition home or self-care (01) ==
LOC: HO.ACS 10:47
PROVIDERS: PCP Internal Medicine; Visit Provider Internal Medicine
DX: Z79.01 Long term (current) use of anticoagulants (principal)

== ENCOUNTER → 2023-04-14 10:47 | Outpatient (BNVA) | payer OTHER, SELFPAY | PROVIDERS: PCP Internal Medicine; Visit Provider Internal Medicine | DX: Z95.2 Presence of prosthetic heart valve (principal); Z79.01 Long term (current) use of anticoagulants; Z51.81 Encounter for therapeutic drug level monitoring | CPT/HCPCS: 85610; 99211 ==

== ENCOUNTER 2023-04-28 10:51 | Outpatient (AMB) | payer OTHER, SELFPAY ==
[2023-04-28 11:33] LABS: Prothrombin Time Whole Bld POC 36.6 sec (11.1-13.5)
--- NOTE | 2023-04-28 11:39 | MHC.OFFVISCO ---
Intake Intake Visit Reasons: Anticoagulation Allergies No Known Allergies [No Known Allergies*] Allergy (Verified 04/28/23 11:28) Medication List - Last Reconciled 04/28/23 by Corrie Flores RN acetaminophen 650 mg PO Q6H PRN aspirin 81 mg PO DAILY atenolol 100 mg PO DAILY atorvastatin 40 mg PO BEDTIME [compression stockings knee-high 20 mmHg] ferrous sulfate 325 mg PO QAM 90 days furosemide 40 mg PO QAM lactulose 15 mL PO DAILY lisinopril 20 mg PO DAILY 90 days oxycodone-acetaminophen 5-325 mg 1 tab PO Q12H PRN 30 days potassium chloride ER (Klor-Con M) 20 mEq PO QAM tadalafil 10 mg PO DAILY 90 days verapamil 120 mg PO TID 90 days warfarin 5 mg See Protocol PO DAILY 90 days Nursing Note NO CP,SOB,DIET/MED CHANGES,FALLS OR SX OF BLEEDING. CONTINUE PRESENT DOSE AND FOLLOW-UP ON 06/[address]URNING FROM [facility]. PT.STATES THAT HE HAS WEEKLY INR'S AT A LAB WHILE THERE. GOOD UNDERTANDING OF DOSING INSTR. PT.AGREES TO CALL [facility] WHILE AWAY IF ANY QUESTIONS/CONCERNS ARISE. Anti-Coag Initial Assessment Social Hx Patient Tobacco Use Status: Never used Tobacco alcohol intake: current Alcohol intake frequency: holidays/special occasions only Cardiovascular Hx: HTN, Arrhythmias and Cardiomyopathy Musculoskeletal Hx: Other Blood Disorder Hx: Hyperlipidemia Hx: Prostate Neurological Hx: Stroke/TIA Cancer HX: Yes (prostate) Psych. 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
== END 2023-04-28 11:41 | disposition home or self-care (01) ==
LOC: HO.ACS 10:51
PROVIDERS: PCP Internal Medicine; Visit Provider Internal Medicine
DX: Z79.01 Long term (current) use of anticoagulants (principal)

== ENCOUNTER → 2023-04-28 10:51 | Outpatient (BNVA) | payer OTHER, SELFPAY | PROVIDERS: PCP Internal Medicine; Visit Provider Internal Medicine | DX: Z95.2 Presence of prosthetic heart valve (principal); Z51.81 Encounter for therapeutic drug level monitoring; Z79.01 Long term (current) use of anticoagulants | CPT/HCPCS: 85610; 99211 ==

== ENCOUNTER 2023-06-09 09:47 | Outpatient (AMB) | payer OTHER, SELFPAY ==
[2023-06-09 09:55] LABS: Prothrombin Time Whole Bld POC 30.9 sec (11.1-13.5); ~PT, ~INR - Anti Coag Clinic 2.6 (0.9-1.1)
--- NOTE | 2023-06-09 09:58 | MHC.OFFVISCO ---
Intake Intake Visit Reasons: Anticoagulation Allergies No Known Allergies [No Known Allergies*] Allergy (Verified 06/09/23 09:50) Medication List - Last Reconciled 06/09/23 by Brissa Doll RN acetaminophen 650 mg PO Q6H PRN aspirin 81 mg PO DAILY atenolol 100 mg PO DAILY atorvastatin 40 mg PO BEDTIME [compression stockings knee-high 20 mmHg] ferrous sulfate 325 mg PO QAM 90 days furosemide 40 mg PO QAM lactulose 15 mL PO DAILY lisinopril 20 mg PO DAILY 90 days oxycodone-acetaminophen 5-325 mg 1 tab PO Q12H PRN 30 days potassium chloride ER (Klor-Con M) 20 mEq PO QAM tadalafil 10 mg PO DAILY 90 days verapamil 120 mg PO TID 90 days warfarin 5 mg See Protocol PO DAILY 90 days Nursing Note Amb to [facility] feeling well, just got in from [facility] since the New Year Medications and supplements reviewed No changes in health, diet, medications, or supplements Denies any unusual signs and symptoms of bruising, bleeding Denies any new Chest pain, SOB, or clotting INR: 2.6 in therapeutic range (2.5-3.0) Nutritional guidance given: balance greens and reds in diet Dose: continue usual dosing; 5 mg daily F/U INR: 3 weeks Patient verbalizes understanding of instructions given with accurate read back/ teach back of dosing Anti-Coag Initial Assessment Social Hx Patient Tobacco Use Status: Never used Tobacco alcohol intake: current Alcohol intake frequency: holidays/special occasions only Cardiovascular Hx: HTN, Arrhythmias and Cardiomyopathy Musculoskeletal Hx: Other Blood Disorder Hx: Hyperlipidemia Hx: Prostate Neurological Hx: Stroke/TIA Cancer HX: Yes (prostate) Psych. Illness/Depression: No Coding Level of Care Code Est Patient Level 1 Diagnoses Current use of anticoagulant therapy Z79.01 Time Spent (min) 15 Assessment & Plan Assessment & Plan (1) Current use of anticoagulant therapy: Code(s): Z79.01 - senior care (current) use of anticoagulants Category: Medical
== END 2023-06-09 10:19 | disposition home or self-care (01) ==
LOC: HO.ACS 09:47
PROVIDERS: PCP Internal Medicine; Visit Provider Internal Medicine
DX: Z79.01 Long term (current) use of anticoagulants (principal)

== ENCOUNTER → 2023-06-09 09:47 | Outpatient (BNVA) | payer OTHER, SELFPAY | PROVIDERS: PCP Internal Medicine; Visit Provider Internal Medicine | DX: Z95.2 Presence of prosthetic heart valve (principal); Z79.01 Long term (current) use of anticoagulants; Z51.81 Encounter for therapeutic drug level monitoring | CPT/HCPCS: 85610; 99211 ==

== ENCOUNTER 2023-06-30 09:23 | Outpatient (AMB) | payer OTHER, SELFPAY ==
--- NOTE | 2023-06-30 09:37 | MHC.OFFVISCO ---
Intake Intake Visit Reasons: Anticoagulation Allergies No Known Allergies [No Known Allergies*] Allergy (Verified 06/30/23 09:32) Medication List - Last Reconciled 06/30/23 by Lanie Hendrickson RN acetaminophen 650 mg PO Q6H PRN aspirin 81 mg PO DAILY atenolol 100 mg PO DAILY atorvastatin 40 mg PO BEDTIME [compression stockings knee-high 20 mmHg] ferrous sulfate 325 mg PO QAM 90 days furosemide 40 mg PO QAM lactulose 15 mL PO DAILY lisinopril 20 mg PO DAILY 90 days oxycodone-acetaminophen 5-325 mg 1 tab PO Q12H PRN 30 days potassium chloride ER (Klor-Con M) 20 mEq PO QAM tadalafil 10 mg PO DAILY 90 days verapamil 120 mg PO TID 90 days warfarin 5 mg See Protocol PO DAILY 90 days Nursing Note INR: 3.0-in therapeutic range of 2.5-3.5 Medications and supplements reviewed- no changes No changes in health, diet, medications, or supplements, Denies any signs and symptoms of bleeding or bruising or clotting. Bleeding, bruising, clotting discussed Nutritional guidance given Dose: 5mg x 7 F/U INR: 3 weeks Patient verbalizes understanding of instructions given Anti-Coag Initial Assessment Social Hx Patient Tobacco Use Status: Never used Tobacco alcohol intake: current Alcohol intake frequency: holidays/special occasions only Cardiovascular Hx: HTN, Arrhythmias and Cardiomyopathy Musculoskeletal Hx: Other Blood Disorder Hx: Hyperlipidemia Hx: Prostate Neurological Hx: Stroke/TIA Cancer HX: Yes (prostate) Psych. Illness/Depression: No Coding Level of Care Code Est Patient Level 1 Diagnoses Current use of anticoagulant therapy Z79.01 Assessment & Plan Assessment & Plan (1) Current use of anticoagulant therapy: Code(s): Z79.01 - senior living (current) use of anticoagulants Category: Medical
[2023-06-30 09:38] LABS: Prothrombin Time Whole Bld POC 35.9 sec (11.1-13.5)
== END 2023-06-30 09:41 | disposition home or self-care (01) ==
LOC: HO.ACS 09:23
PROVIDERS: PCP Internal Medicine; Visit Provider Internal Medicine
DX: Z79.01 Long term (current) use of anticoagulants (principal)

== ENCOUNTER → 2023-06-30 09:23 | Outpatient (BNVA) | payer OTHER, SELFPAY | PROVIDERS: PCP Internal Medicine; Visit Provider Internal Medicine | DX: Z95.2 Presence of prosthetic heart valve (principal); Z79.01 Long term (current) use of anticoagulants; Z51.81 Encounter for therapeutic drug level monitoring | CPT/HCPCS: 85610; 99211 ==

== ENCOUNTER 2023-07-03 12:29 | Outpatient (AMB) | payer OTHER, SELFPAY ==
--- NOTE | 2023-07-03 12:54 | A.OFFVIS_ITS ---
Intake Vital Signs 07/03/23 12:56 Height 6 ft 1 in Weight 317 lb 7.45 oz BMI 41.9 BP 124/70 Blood Pressure Location Lt brachial Position Sitting Pulse 88 Intake Visit Reasons: f/up w/ [facility] Intake Note: follow up w/ device check Continuous Absorption Process Operator Required: No Accompanied by: Self / Same As Patient Allergies No Known Allergies [No Known Allergies*] Allergy (Verified 07/03/23 12:56) Medication List - Last Reconciled 07/03/23 by Young Ramirez MD acetaminophen 650 mg PO Q6H PRN atenolol 50 mg PO DAILY atorvastatin 40 mg PO BEDTIME [compression stockings knee-high 20 mmHg] ferrous sulfate 325 mg PO QAM 90 days furosemide 40 mg PO QAM lactulose 15 mL PO DAILY lisinopril 20 mg PO DAILY 90 days oxycodone-acetaminophen 5-325 mg 1 tab PO Q12H PRN 30 days potassium chloride ER (Klor-Con M) 20 mEq PO QAM tadalafil 10 mg PO DAILY 90 days warfarin 5 mg See Protocol PO DAILY 90 days HPI HPI Comments History of Present Illness Details Andres returns for follow-up regarding his various cardiac issues. He has a long and complex cardiac history. He was diagnosed with hypertrophic cardiomyopathy many years ago. Had an ICD placed for secondary prevention due to ventricular tachycardia. Also has paroxysmal atrial fibrillation that is rather persistent recently. Was taking Xarelto but there were compliance issues and he was then diagnosed with stroke. Then switched to Eliquis. Then in the last couple years diagnosed with severe mitral regurgitation and referred to [facility]. Underwent MitraClip placement. He was feeling better but then apparently few months back he called them as he did not feel good and according to patient, he went for another MitraClip. Then another hospitalization with shortness of breath and apparently had elevated troponins. Lead to cardiac catheterization and diagnosed with MitraClip embolism. Then transferred to [facility]. Had mitral valve replacement surgery. In spite of all the above complicated issues, he is actually doing quite well. He states he sent fact feeling 'great' in his own words. Otherwise, no specific concerns from cardiac. [facility] Medical History Seroma after procedure Peripheral vascular disease Poor circulation Leg edema Morbid obesity Opiate dependence AXEL (obstructive sleep apnea) Lumbar degenerative disc disease PAF (paroxysmal atrial fibrillation) Essential hypertension History of stroke Paroxysmal atrial flutter Ventricular tachyarrhythmia Hypertrophic cardiomyopathy Surgical History H/O colonoscopy Status post aorto-coronary artery bypass graft Status post mitral valve replacement Status post implantation of mitral valve leaflet clip History of cardiac pacemaker (~03/2014) History of cardiac catheterization Family History Father Diabetes Mother No problems noted. Social History Housing: Apartment Alcohol intake: current Alcohol intake frequency: holidays/special occasions only Alcohol type: hard liquor Patient Tobacco Use Status: Never used Tobacco e-Cigarette/Vaping Use: Never Used Second Hand Smoke Exposure: No service: No Current occupational status: unemployed Cognitive needs: Yes Hearing needs: No Vision needs: Yes Review of Systems Const Denies weakness ENT Denies dizziness Card Denies chest pain, Denies chest pain with activity, Denies syncope, Denies rapid heart rate, Denies pedal edema, Denies edema, Denies leg edema, Denies lightheadedness, Denies palpitations, Denies dyspnea, Denies dyspnea on exertion and Denies orthopnea Resp Denies cough, Denies dyspnea and Denies dyspnea on exertion GI Denies hematochezia and Denies change in stool character Musc Denies abnormal gait, Denies muscle cramps, Denies muscle weakness, Denies numbness, Denies radiating pain into limb and Denies tingling Neuro Denies abnormal gait, Denies dizziness, Denies syncope, Denies numbness, Denies tingling and Denies weakness Endo Denies palpitations Physical Exam Vital Signs: Last Vital Signs Pulse 88 07/03/23 12:56 BP 124/70 07/03/23 12:56 BMI result Body Mass Index 41.9 Const General: comfortable and no acute distress Orientation/consciousness: patient oriented x3 HEENT Other: Unremarkable Head: Yes normal to inspection Neck Neck: Yes normal visual inspection Chest Chest palpation & inspection: normal inspection of the chest Resp Auscultation: clear to auscultation bilaterally Cardio Other: Normal prosthetic heart sounds heard. Palpation: normal PMI GI Palpation (GI): Soft to palpation Back/Spine/Pelvis Other: unremarkable Skin General skin exam: no rashes or lesions noted Neuro General: patient oriented x3 Extrem General: Yes normal to inspection Psych Mental Status: mental status grossly normal Office Procedures Cardiac Device Check Cardiac Device Check Details: ICD interrogated today. Battery status > 1.9 years. Normal lead parameters. No Shocks. Nonsustained episodes lasting for seconds, possible rapid rates from atrial fibrillation. Overall, normal device function. [id number] Cardiac Device Check, single lead implantable defibrillator Procedure code (CPT) selection complete Assessment & Plan Assessment & Plan (1) Status post mitral valve replacement: Code(s): Z95.2 - Presence of prosthetic heart valve Plan: Status post mechanical mitral valve replacement with On-X valve. Also had tricuspid valve repair with 34 mm Medtronic band. Per [facility] discharge summary, goal INR 2.5-3. 2-3 also mentioned to be as acceptable. He was on aspirin but decided not take it anymore. Infective endocarditis prophylaxis as needed. Normally functioning mechanical mitral valve on echocardiogram. (2) Status post implantation of mitral valve leaflet clip: Code(s): Z98.890 - Other specified postprocedural states; Z95.818 - Presence of other cardiac implants and grafts Plan: Status post removal. (3) Status post aorto-coronary artery bypass graft: Code(s): Z95.1 - Presence of aortocoronary bypass graft Plan: Status post CABG x1; saphenous vein graft right coronary artery. Based on the op note, embolization of MitraClip right coronary artery ostia with right coronary artery occlusion and acute ME. Based on catheterization report, no significant obstructive coronary disease overall. (4) Hypertrophic cardiomyopathy: Code(s): I42.2 - Other hypertrophic cardiomyopathy Plan: No active symptoms. He was on atenolol and verapamil. He is cut back on the atenolol dose himself. He has no longer taking verapamil either. He has been on disopyramide in the past as well. However, due to side effects could not tolerate. (5) Ventricular tachyarrhythmia: Code(s): I47.2 - Ventricular tachycardia Plan: He has had ICD for several years. No shocks delivered. (6) Persistent atrial fibrillation: Code(s): I48.19 - Other persistent atrial fibrillation Plan: Controlled atrial fibrillation on last Holter. No further changes. Continue anticoagulation. (7) Essential hypertension: Code(s): I10 - Essential (primary) hypertension Plan: Seems stable. No changes. (8) History of stroke: Code(s): Z86.73 - Personal history of transient ischemic attack (TIA), and cerebral infarction without residual deficits Plan: Likely cardioembolic. In the past, CTA has been performed at [facility] without any significant carotid disease. (9) AXEL (obstructive sleep apnea): Comment: He does have severe obstructive Sleep apnea He is very very compliant and benefits from the use of CPAP. His sleep quality is much better. Code(s): G47.33 - Obstructive sleep apnea (adult) (pediatric) Plan: h/o possibly uvulopalatopharyngoplasty per patient. Last sleep study reported to have severe AXEL. CPAP Coding Level of Care Code Est Pt Level 4 (94271) Diagnoses Status post mitral valve replacement Z95.2 Status post implantation of mitral valve leaflet clip Z98.890; Z95.818 Status post aorto-coronary artery bypass graft Z95.1 Hypertrophic cardiomyopathy I42.2 Ventricular tachyarrhythmia I47.2 Persistent atrial fibrillation I48.19 Essential hypertension I10 History of stroke Z86.73 AXEL (obstructive sleep apnea) G47.33 CPT Codes Cardiac Device Check - Cardiac Device 4: [id number] Cardiac Device Check, single lead implantable defibrillator ([id number])
[2023-07-03 12:56] VITALS: BP 124/70; PULSE 88; BMI 41.9
== END 2023-07-03 13:08 | disposition home or self-care (01) ==
PROVIDERS: PCP Internal Medicine; Visit Provider Internal Medicine
DX: I48.19 Other persistent atrial fibrillation (principal); Z95.2 Presence of prosthetic heart valve; I42.2 Other hypertrophic cardiomyopathy; Z95.818 Presence of other cardiac implants and grafts; Z95.1 Presence of aortocoronary bypass graft; I47.20 Ventricular tachycardia, unspecified; I10 Essential (primary) hypertension; Z98.890 Other specified postprocedural states; Z86.73 Personal history of transient ischemic attack (TIA), and cerebral infarction without residual deficits; G47.33 Obstructive sleep apnea (adult) (pediatric)
CPT/HCPCS: 93282; 99214

== ENCOUNTER → 2023-07-03 12:29 | Outpatient (BNVA) | payer OTHER, SELFPAY | PROVIDERS: PCP Internal Medicine; Visit Provider Internal Medicine | DX: Z45.02 Encounter for adjustment and management of automatic implantable cardiac defibrillator (principal); I42.2 Other hypertrophic cardiomyopathy; I48.19 Other persistent atrial fibrillation; I10 Essential (primary) hypertension; G47.33 Obstructive sleep apnea (adult) (pediatric); Z98.890 Other specified postprocedural states; Z95.1 Presence of aortocoronary bypass graft; Z86.73 Personal history of transient ischemic attack (TIA), and cerebral infarction without residual deficits | CPT/HCPCS: 99212 ==

== ENCOUNTER 2023-07-11 09:41 | Outpatient (REF) | payer OTHER, SELFPAY ==
[2023-07-11 09:52] LABS: MANUAL DIFF FLAG NO
[2023-07-11 10:21] LABS: Basophils Absolute Auto 0.1 X10*3/uL (0.0-0.2); Basophils Percent Auto 0.8 % (0-2); Eosinophils Absolute Auto 0.2 X10*3/uL (0.0-0.4); Eosinophils Percent Auto 3.8 % (0-4); Hematocrit 44.5 % (42.0-52.0); Hemoglobin 14.2 g/dl (14.0-18.0); Imm Gran Abs Auto 0.01 X10*3/uL (0.00-0.03); Imm Gran Pct Auto 0.2 % (0.0-0.4); Lymphocytes Absolute Auto 1.5 X10*3/uL (1.2-4.9); Lymphocytes Percent Auto 23.3 % (20-40); Mean Corpuscular HGB Conc 31.9 g/dl (31.0-36.0); Mean Corpuscular Hemoglobin 29.8 pg (27.0-33.0); Mean Corpuscular Volume 93.3 fL (80.0-98.0); Mean Platelet Volume 10.4 fL (9.4-12.4); Monocytes Absolute Auto 0.6 X10*3/uL (0.1-1.2); Monocytes Percent Auto 8.7 % (2-11); Neutrophils Percent Auto 63.2 % (45-73); Platelet Count 202 X10*3/uL (160-400); Red Blood Count 4.77 X10*6/uL (4.60-5.80); Red Cell Distribution Width 13.5 % (11.0-16.0); White Blood Count 6.3 X10*3/uL (4.8-10.8)
[2023-07-11 11:06] LABS: Alanine Aminotransferase 30 U/L (0-40); Alkaline Phosphatase 67 U/L (39-117); Anion Gap 9 (12-20); Aspartate Amino Transferase 30 U/L (5-37); Bilirubin Total 1.7 mg/dL (0.0-1.0); Blood Urea Nitrogen 16 mg/dL (9-16); Calcium 9.1 mg/dL (8.4-10.2); Carbon Dioxide 26 mmol/L (22-29); Chloride 108 mmol/L (96-108); Cholesterol 120 mg/dL (<200); Estimated Glomerular Filt Rate > 60; Glucose Fasting 98 mg/dL (60-99); HDL Cholesterol 56 mg/dL (>40); Iron 150 mcg/dL (45-160); LDL Cholesterol Calculated 51 mg/dL (<100); Percent Iron Saturation 47 % (15-50); Potassium 3.9 mmol/L (3.3-5.1); Sodium 139 mmol/L (135-145); Total Iron Binding Capacity 318 mcg/dL (228-428); Total Protein 7.5 g/dL (6.5-8.0); Triglycerides 67 mg/dL (<150); Unsaturated Iron Binding 168 ug/dL
[2023-07-11 11:20] LABS: Prostate Specific Antigen 2.75 ng/mL (<0.05-4.0)
[2023-07-11 11:22] LABS: Vitamin D 25-OH Total 28.5 ng/mL (>30)
== END 2023-07-11 09:42 | disposition home or self-care (01) ==
LOC: HO.LAB 09:41
PROVIDERS: PCP Internal Medicine; Visit Provider Urology
DX: Z12.5 Encounter for screening for malignant neoplasm of prostate (principal); D64.9 Anemia, unspecified; E55.9 Vitamin D deficiency, unspecified; E78.5 Hyperlipidemia, unspecified; I10 Essential (primary) hypertension; C61 Malignant neoplasm of prostate; C77.2 Secondary and unspecified malignant neoplasm of intra-abdominal lymph nodes
CPT/HCPCS: 36415; 80053; 80061; 82306; 83540; 84153; 85025

== ENCOUNTER 2023-07-21 10:17 | Outpatient (AMB) | payer OTHER, SELFPAY ==
--- NOTE | 2023-07-21 10:31 | MHC.OFFVISCO ---
Intake Intake Visit Reasons: Anticoagulation Allergies No Known Allergies [No Known Allergies*] Allergy (Verified 07/21/23 10:20) Medication List - Last Reconciled 07/21/23 by Brissa Daniels RN acetaminophen 650 mg PO Q6H PRN atenolol 50 mg PO DAILY atorvastatin 40 mg PO BEDTIME [compression stockings knee-high 20 mmHg] ferrous sulfate 325 mg PO QAM 90 days furosemide 40 mg PO QAM lactulose 15 mL PO DAILY lisinopril 20 mg PO DAILY 90 days oxycodone-acetaminophen 5-325 mg 1 tab PO Q12H PRN 30 days potassium chloride ER (Klor-Con M) 20 mEq PO QAM tadalafil 10 mg PO DAILY 90 days warfarin 5 mg See Protocol PO DAILY 90 days Nursing Note INR: 2.9 in therapeutic range of 2.5-3 Medications and supplements reviewed: no changes No changes in health, diet, medications, or supplements. Denies any signs and symptoms of bleeding or bruising or clotting. Bleeding, bruising, clotting discussed Nutritional guidance given to cont to balance reds and greens Dose: cont 5mg daily F/U INR: 3 weeks Patient verbalizes understanding of instructions given Anti-Coag Initial Assessment Social Hx Patient Tobacco Use Status: Never used Tobacco alcohol intake: current Alcohol intake frequency: holidays/special occasions only Cardiovascular Hx: HTN, Arrhythmias and Cardiomyopathy Musculoskeletal Hx: Other Blood Disorder Hx: Hyperlipidemia Hx: Prostate Neurological Hx: Stroke/TIA Cancer HX: Yes (prostate) Psych. Illness/Depression: No Coding Level of Care Code Est Patient Level 1 Diagnoses Current use of anticoagulant therapy Z79.01 Results AMB INR Fingerstick AMB INR Fingerstick 2.9 Last Edit by Brissa Daniels RN on 07/21/23 10:29 interface delay Assessment & Plan Assessment & Plan (1) Current use of anticoagulant therapy: Code(s): Z79.01 - longterm (current) use of anticoagulants Category: Medical
[2023-07-21 11:19] LABS: Prothrombin Time Whole Bld POC 35.1 sec (11.1-13.5); ~PT, ~INR - Anti Coag Clinic 2.9 (0.9-1.1)
== END 2023-07-21 10:33 | disposition home or self-care (01) ==
LOC: HO.ACS 10:17
PROVIDERS: PCP Internal Medicine; Visit Provider Internal Medicine
DX: Z79.01 Long term (current) use of anticoagulants (principal)

== ENCOUNTER → 2023-07-21 10:17 | Outpatient (BNVA) | payer OTHER, SELFPAY | PROVIDERS: PCP Internal Medicine; Visit Provider Internal Medicine | DX: Z95.2 Presence of prosthetic heart valve (principal); Z79.01 Long term (current) use of anticoagulants; Z51.81 Encounter for therapeutic drug level monitoring | CPT/HCPCS: 85610; 99211 ==

== ENCOUNTER 2023-07-26 14:53 | Outpatient (AMB) | payer OTHER, MEDICAID, SELFPAY ==
--- NOTE | 2023-07-26 15:11 | A.OFFPC_ITS ---
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 Required: No Accompanied by: Self / Same As Patient Allergies No Known Allergies [No Known Allergies*] Allergy (Verified 07/26/23 15:37) Medication List - Last Reconciled 07/26/23 by Barbara Peterson MD acetaminophen 650 mg PO Q6H PRN atenolol 50 mg PO DAILY atorvastatin 40 mg PO BEDTIME [compression stockings knee-high 20 mmHg] ferrous sulfate 325 mg PO QAM 90 days furosemide 40 mg PO QAM lactulose 15 mL PO DAILY lisinopril 20 mg PO DAILY 90 days oxycodone-acetaminophen 5-325 mg 1 tab PO Q12H PRN 30 days potassium chloride ER (Klor-Con M) 20 mEq PO QAM tadalafil 10 mg PO DAILY 90 days warfarin 5 mg See Protocol PO DAILY 90 days Tobacco use date assessed: 07/26/23 Fall risk assessment: No Falls in past year Last assessed Fall Risk: 07/26/23 Dental Screening Dental Screen Date: 07/26/23 Did you have a dental visit in the last 12 months?: Yes Did you have a dental problem in the last 6 months where you did not have access to dental care?: No Was dental information given to patient?: Patient has dentist HPI HPI Comments History of Present Illness Details This is a 68-year-old male with hypertension, hypertrophic cardiomyopathy, persistent atrial fibrillation on anticoagulation, morbid obesity and opioid dependence that comes today for follow-up on his conditions. Blood pressure stable. Last echocardiogram done 2022 shows ejection fraction of 47%. Has not gain 5 lb in a week. Hypertrophic cardiomyopathy and persistent atrial fibrillation are follow by cardiology. Denies any active bleeding and is follow by Coumadin clinic. On opiates for his chronic low back pain with no red flags. [facility] Medical History Seroma after procedure Peripheral vascular disease Poor circulation Leg edema Morbid obesity Opiate dependence AXEL (obstructive sleep apnea) Lumbar degenerative disc disease PAF (paroxysmal atrial fibrillation) Essential hypertension History of stroke Paroxysmal atrial flutter Ventricular tachyarrhythmia Hypertrophic cardiomyopathy Surgical History H/O colonoscopy Status post aorto-coronary artery bypass graft Status post mitral valve replacement Status post implantation of mitral valve leaflet clip History of cardiac pacemaker (~03/2014) History of cardiac catheterization Family History Father Diabetes Mother No problems noted. Social History Housing: Apartment Alcohol intake: current Alcohol intake frequency: holidays/special occasions only Alcohol type: hard liquor Patient Tobacco Use Status: Never used Tobacco e-Cigarette/Vaping Use: Never Used Second Hand Smoke Exposure: No service: No Current occupational status: unemployed Cognitive needs: Yes Hearing needs: No Vision needs: Yes Questionnaire PHQ-9 Over the last 2 weeks, how often have you been bothered by any of the following problems? 1. Little interest or pleasure in doing things: not at all 2. Feeling down, depressed, or hopeless: not at all 3. Trouble falling or staying asleep, or sleeping too much: not at all 4. Feeling tired or having little energy: not at all 5. Poor appetite or overeating: not at all 6. Feeling bad about yourself - or that you are a failure or have let yourself or your family down: not at all 7. Trouble concentrating on things, such as reading the newspaper or watching television: not at all 8. Moving or speaking so slowly that other people could have noticed. Or the opposite - being so fidgety or restless that you have been moving around a lot more than usual: not at all 9. Thoughts that you would be better off or of hurting yourself in some way: not at all Total score: 0 Depression Screening Interpretation: Negative Depression Screening Done: Yes 02993 - PHQ-9 Billing: Yes Source: Developed by Drs. Anup Nieto, Hilda Terry, Florian Kearney and colleagues, with an educational yumi from [employer]. Thrive Questionnaire Date Thrive assessed: 07/26/23 I am a: Patient What is your living situation today?: I have a steady place to live Within the past 12 months, did the food you bought not last and you didn't have the money to get more?: Never true Within the past 12 months, did you worry whether your food would run out before you got money to buy more?: Never true Do you have trouble paying for medicines?: No Do you have trouble getting transportation to medical appointments?: No Do you have trouble paying your heating and electricity bill?: No Do you have trouble taking care of your child, family member or friend?: No Do you have trouble with day-to-day activities such as bathing, preparing meals, shopping, managing finances, etc.?: No Are you currently unemployed and looking for a job?: No Are you interested in more education?: No Please select the resources that you would like help with: None Currently or been in a relationship where the following occur: no concerns reported THRIVE Score: 0 AUDIT C Alcohol Use Questionnaire (AUDIT-C) 1. How often do you have a drink containing alcohol?: Monthly or less 2. How many drinks containing alcohol do you have on a typical day when you are drinking?: 1 or 2 3. How often do you have six or more drinks on one occasion?: Never Total Score: 1 Score Reviewed/Action Taken: No JOAQUIM-7 AMB Questionnaire JOAQUIM-7 Date JOAQUIM - 7 assessed: 07/26/23 Feeling nervous, anxious, or on edge: 0 = Not at all Not being able to stop or control worryin = Not at all Worrying too much about different things: 0 = Not at all Trouble relaxin = Not at all Being so restless that it is hard to sit still: 0 = Not at all Becoming easily annoyed or irritable: 0 = Not at all Feeling afraid as if something awful might happen: 0 = Not at all Total JOAQUIM-7 score (0-4 normal; 5-9 mild; 10-14 moderate; 15-21 severe): 0 Source: Developed by Drs. Anup Nieto, Hilda Terry, Florian Kearney and colleagues, with an educational yumi from [employer]. JOAQUIM-7 Assessment Billing JOAQUMI-7 Assessment Tool: JOAQUIM-7 Assessment 53367 Review of Systems Const All systems reviewed & are unremarkable except as noted in HPI and below Eyes Reports no additional complaints, Denies change in vision and Denies other visual disturbances Card Denies chest pain at rest, Denies chest pain with activity, Denies edema, Denies irregular heart rhythm, Denies claudication, Denies dyspnea, Denies dyspnea on exertion, Denies orthopnea, Denies paroxysmal nocturnal dyspnea and Denies slow heart rate Resp Denies cough, Denies dyspnea and Denies dyspnea on exertion Physical exam (Primary Care) Vital Signs: Last Vital Signs BP 120/78 07/26/23 15:13 BMI result Body Mass Index 41.0 Tobacco/Smoking Status: Tobacco use Status Tobacco use date assessed 07/26/23 07/26/23 15:18 Patient Tobacco Use Status Never used Tobacco 07/26/23 15:13 e-Cigarette/Vaping Use Never Used 07/26/23 15:13 PHQ-9: PHQ-9 Score PHQ-9: Total score 0 07/26/23 15:40 Depression Screening Interpretation: Negative Thrive Assessment: Date of Thrive Assessment Date Thrive assessed 07/26/23 07/26/23 15:18 Currently or been in a relationship where the following occur: no concerns reported Resp Effort & Inspection: normal respiratory effort Auscultation: clear to auscultation bilaterally Cardio Jugular venous distension: no JVD Rate: regular rate Rhythm: regular rhythm Heart sounds: S1 normal heart sound present and S2 normal heart sound present Extrem General: Yes full ROM Assessment and Plan Assessment & Plan (1) Essential hypertension: Code(s): I10 - Essential (primary) hypertension Plan: Continue lisinopril. Blood pressure goal is equal or less than 130/80. (2) Persistent atrial fibrillation: Code(s): I48.19 - Other persistent atrial fibrillation Plan: Continue atenolol and warfarin. The goal is heart rate control. Follow-up with Coumadin Clinic. (3) Morbid obesity: Comment: The patient is relatively inactive. He does have gross obesity. ,He is a simple minded javier . I do not expect him to lose much weight. Code(s): E66.01 - Morbid (severe) obesity due to excess calories Plan: Start diet and exercise. BMI goal is less than 30. (4) Opiate dependence: Code(s): F11.20 - Opioid dependence, uncomplicated Qualifiers: Substance use status: uncomplicated Qualified Code(s): F11.20 - Opioid dependence, uncomplicated Plan: Continue Percocet as needed for severe pain. (5) Hypertrophic cardiomyopathy: Code(s): I42.2 - Other hypertrophic cardiomyopathy Plan: Keep blood pressure within goal. The goal is to not gain 5 lb in a week. Follow-up with Cardiology. Continue lisinopril. Orders: Orders Lipid Panel 4 Months E78.5 - Hyperlipidemia, unspecified IRON PROFILE 4 Months D64.9 - Anemia, unspecified Vitamin D 25-OH Total 4 Months E55.9 - Vitamin D deficiency, unspecified Complete Blood Count Auto Diff 4 Months D64.9 - Anemia, unspecified Comprehensive [place]. Panel Fast 4 Months I10 - Essential (primary) hypertension Medications: Discontinued ferrous sulfate Discontinued Reason: Patient Completed Course 325 mg PO QAM 90 days 90 tabs 1RF Coding Level of Care Code Est Pt Level 4 (25407) Diagnoses Essential hypertension I10 Persistent atrial fibrillation I48.19 Morbid obesity E66.01 Uncomplicated opioid dependence F11.20 Substance use status: uncomplicated Hypertrophic cardiomyopathy I42.2 Additional Codes JOAQUIM-7 Assessment Billing - JOAQUIM-7 Assessment Tool: JOAQUIM-7 Assessment 71929 ([id number]) Time Spent (min) 23
[2023-07-26 15:13] VITALS: BP 120/78; BMI 41.0
== END 2023-07-26 15:45 | disposition home or self-care (01) ==
PROVIDERS: PCP Internal Medicine; Visit Provider Internal Medicine
DX: I48.19 Other persistent atrial fibrillation (principal); E66.01 Morbid (severe) obesity due to excess calories; F11.20 Opioid dependence, uncomplicated; Z68.41 Body mass index [BMI] 40.0-44.9, adult; I42.2 Other hypertrophic cardiomyopathy; I10 Essential (primary) hypertension
CPT/HCPCS: 99214

== ENCOUNTER 2023-08-01 07:58 | Outpatient (REF) | payer OTHER, SELFPAY ==
--- NOTE | ~2023-08-01 | PE_ITS ---
EXAMINATION: 68Ga-PSMA (ILLUCCIX) PET/CT CLINICAL INDICATION: Subsequent treatment management. Malignant neoplasm of prostate, rising PSA. PROCEDURE: Radiopharmaceutical: 68Ga-PSMA (Illuccix); Dose: 5.1 mCi injected in the left antecubital fossa. Image acquisition: 51 minutes following IV radiotracer administration, positron emission tomography was performed from the mid thighs to vertex. Non-contrast low-dose helical CT imaging was performed over the same range without breath-hold for attenuation correction of PET images and anatomic correlation. Total CT exam dose-length product 1422.75 mGy-cm * These CT images were obtained using dose optimization techniques as appropriate, variously including the following: Automated exposure control * Adjustment of mA and/or kV according to patient size (this includes techniques or standardized protocols for targeted exams where dose is matched to indication/reason for exam; i.e. extremities or head) * Use of iterative reconstruction technique COMPARISON: The previous study performed with 18F-PSMA (Pylrarify) at [facility] dated 07/27/2021 is available for comparison. Additional Clinical information: Surgery:No ; XRT: Yes. date: 4-5 years ago ADT: No PSA: Not available. FINDINGS: NECK AND VISUALIZED HEAD: There are no foci of abnormal PSMA activity in this region. The distribution of activity appears physiological. A focus of encephalomalacia visualized on the CT images of the prior 07/27/2021 study is outside the axial [id number] of the current study and cannot be compared. THORAX: There are no foci of abnormal PSMA activity within the chest. No suspicious pulmonary nodules are visualized. There is no pleural or pericardial fluid, or pneumothorax. There is no mediastinal, supraclavicular, or axillary lymphadenopathy. A left chest pacemaker and associated leads are noted. A prosthetic mitral valve versus dense calcifications of the mitral valve annulus are noted. ABDOMEN AND PELVIS: No foci of abnormal PSMA activity are present. PSMA avid right internal iliac and presacral lymphadenopathy present at several sites on the 07/27/2021 prior study are not present on the current study. There is no abnormal PSMA activity in the prostate. Several metallic fiducial markers are present within the prostate. Presumed physiological PSMA activity is present in the bowel, likely physiological. The liver is heterogeneous, likely due to imaging artifacts. No definite foci of abnormal PSMA activity are present within the liver. The liver appears unremarkable on the CT images. Small dependent gallbladder calculi are present but the gallbladder is otherwise unremarkable. The spleen, kidneys, adrenal glands and pancreas are unremarkable. There is no retroperitoneal, mesenteric, pelvic or inguinal lymphadenopathy. A fat-containing periumbilical hernia is present. MUSCULOSKELETAL: There is a focus of intense PSMA activity present in the lateral aspect of the left fifth rib, SUVmax 16.7, slice 84/267. This was not present on the prior 07/27/2021 study and there is no corresponding CT abnormality at this site. No other foci of abnormal PSMA activity are present. Poststernotomy changes including multiple sternal wires with no associated abnormal activity are noted. VASCULAR: Vascular calcifications including coronary are noted. SUV max REFERENCE: Blood Current: 1.0, slice 80/267; Previous: 1.8 07/27/2021 Liver Current: 14.8, slice 128/267; Previous: 9.6 07/27/2021 Parotid Current: 14.1, right parotid, slice 21/267; Previous: 14.9 07/27/2021 PET/PET CT fusion skull to thigh IMPRESSION: 1. Intense abnormal PSMA activity in the left fifth rib is noted without corresponding CT abnormality. This is strongly suspicious for a prostate metastasis at this site. The intensity is greater than would be expected with a recent rib fracture and in addition, the latter is not present on the corresponding CT images. This is new since the 07/27/2021 study. 2. There has been a complete resolution of PSMA avid lymphadenopathy in the pelvis, as described above. 3. No additional abnormalities suspicious for metastatic or other malignant lesions are noted. 4. Cholelithiasis. 5. Vascular calcifications including coronary. PSMA score reference: Score Reported PSMA expression Uptake 0 No Below blood pool 1 Low Equal to or above blood pool and lower than liver 2 Intermediate Equal to or above liver and lower than parotid gland 3 High Equal to or above parotid gland
== END 2023-08-01 07:59 | disposition home or self-care (01) ==
LOC: HO.PET 07:58
PROVIDERS: PCP Internal Medicine; Visit Provider Urology
DX: Z13.89 Encounter for screening for other disorder (principal)

== ENCOUNTER 2023-08-11 09:45 | Outpatient (AMB) | payer OTHER, SELFPAY ==
[2023-08-11 09:55] LABS: Prothrombin Time Whole Bld POC 35.2 sec (11.1-13.5); ~PT, ~INR - Anti Coag Clinic 2.9 (0.9-1.1)
--- NOTE | 2023-08-11 09:56 | MHC.OFFVISCO ---
Intake Intake Visit Reasons: Anticoagulation Allergies No Known Allergies [No Known Allergies*] Allergy (Verified 08/11/23 09:49) Medication List - Last Reconciled 08/11/23 by Hanna Magaña RN acetaminophen 650 mg PO Q6H PRN atenolol 50 mg PO DAILY atorvastatin 40 mg PO BEDTIME [compression stockings knee-high 20 mmHg] furosemide 40 mg PO QAM lactulose 15 mL PO DAILY lisinopril 20 mg PO DAILY 90 days oxycodone-acetaminophen 5-325 mg 1 tab PO Q12H PRN 30 days potassium chloride ER (Klor-Con M) 20 mEq PO QAM tadalafil 10 mg PO DAILY 90 days warfarin 5 mg See Protocol PO DAILY 90 days Nursing Note INR: 2.9 in therapeutic range Medications and supplements reviewed No changes in health, diet, medications, or supplements, Denies any signs and symptoms of bleeding or bruising or clotting. Bleeding, bruising, clotting discussed Nutritional guidance given - eat a mix of fruits and vegetables Dose: 5mg daily F/U INR: 3 weeks per pt request Patient verbalizes understanding of instructions given Anti-Coag Initial Assessment Social Hx Patient Tobacco Use Status: Never used Tobacco alcohol intake: current Alcohol intake frequency: holidays/special occasions only Cardiovascular Hx: HTN, Arrhythmias and Cardiomyopathy Musculoskeletal Hx: Other Blood Disorder Hx: Hyperlipidemia Hx: Prostate Neurological Hx: Stroke/TIA Cancer HX: Yes (prostate) Psych. 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
== END 2023-08-11 09:59 | disposition home or self-care (01) ==
LOC: HO.ACS 09:45
PROVIDERS: PCP Internal Medicine; Visit Provider Internal Medicine
DX: Z79.01 Long term (current) use of anticoagulants (principal)

== ENCOUNTER → 2023-08-11 09:45 | Outpatient (BNVA) | payer OTHER, SELFPAY | PROVIDERS: PCP Internal Medicine; Visit Provider Internal Medicine | DX: Z95.2 Presence of prosthetic heart valve (principal); Z79.01 Long term (current) use of anticoagulants; Z51.81 Encounter for therapeutic drug level monitoring | CPT/HCPCS: 85610; 99211 ==

== ENCOUNTER 2023-09-01 09:44 | Outpatient (AMB) | payer OTHER, SELFPAY ==
[2023-09-01 09:54] LABS: Prothrombin Time Whole Bld POC 34.7 sec (11.1-13.5); ~PT, ~INR - Anti Coag Clinic 2.9 (0.9-1.1)
--- NOTE | 2023-09-01 09:56 | MHC.OFFVISCO ---
Intake Intake Visit Reasons: Anticoagulation Allergies No Known Allergies [No Known Allergies*] Allergy (Verified 09/01/23 09:48) Medication List - Last Reconciled 09/01/23 by Hanna Magaña RN acetaminophen 650 mg PO Q6H PRN atenolol 50 mg PO DAILY atorvastatin 40 mg PO BEDTIME [compression stockings knee-high 20 mmHg] furosemide 40 mg PO QAM lactulose 15 mL PO DAILY lisinopril 20 mg PO DAILY 90 days oxycodone-acetaminophen 5-325 mg 1 tab PO Q12H PRN 30 days potassium chloride ER (Klor-Con M) 20 mEq PO QAM tadalafil 10 mg PO DAILY 90 days warfarin 5 mg See Protocol PO DAILY 90 days Nursing Note INR: 2.9 in therapeutic range Medications and supplements reviewed No changes in health, diet, medications, or supplements, Denies any signs and symptoms of bleeding or bruising or clotting. Bleeding, bruising, clotting discussed Nutritional guidance given Dose: KEEP SAME 5MG DAILY F/U INR: 3 WEEKS Patient verbalizes understanding of instructions given Anti-Coag Initial Assessment Social Hx Patient Tobacco Use Status: Never used Tobacco alcohol intake: current Alcohol intake frequency: holidays/special occasions only Cardiovascular Hx: HTN, Arrhythmias and Cardiomyopathy Musculoskeletal Hx: Other Blood Disorder Hx: Hyperlipidemia Hx: Prostate Neurological Hx: Stroke/TIA Cancer HX: Yes (prostate) Psych. Illness/Depression: No Coding Level of Care Code Est Patient Level 1 Diagnoses Current use of anticoagulant therapy Z79.01 Assessment & Plan Assessment & Plan (1) Current use of anticoagulant therapy: Code(s): Z79.01 - long-term (current) use of anticoagulants Category: Medical
== END 2023-09-01 09:57 | disposition home or self-care (01) ==
LOC: HO.ACS 09:44
PROVIDERS: PCP Internal Medicine; Visit Provider Internal Medicine
DX: Z79.01 Long term (current) use of anticoagulants (principal)

== ENCOUNTER → 2023-09-01 09:44 | Outpatient (BNVA) | payer OTHER, SELFPAY | PROVIDERS: PCP Internal Medicine; Visit Provider Internal Medicine | DX: Z95.2 Presence of prosthetic heart valve (principal); Z51.81 Encounter for therapeutic drug level monitoring; Z79.01 Long term (current) use of anticoagulants | CPT/HCPCS: 85610; 99211 ==

== ENCOUNTER 2023-09-06 08:22 | Outpatient (REF) | payer OTHER, SELFPAY ==
[2023-09-06 10:00] LABS: Prostate Specific Antigen 3.84 ng/mL (<0.05-4.0)
== END 2023-09-06 08:23 | disposition home or self-care (01) ==
LOC: HO.LAB 08:22
PROVIDERS: PCP Internal Medicine; Visit Provider Urology
DX: C61 Malignant neoplasm of prostate (principal); C77.2 Secondary and unspecified malignant neoplasm of intra-abdominal lymph nodes; Z12.5 Encounter for screening for malignant neoplasm of prostate
CPT/HCPCS: 36415; 84153

== ENCOUNTER 2023-09-19 15:25 | Outpatient (AMB) | payer OTHER, SELFPAY ==
--- NOTE | 2023-09-19 15:32 | A.OFFVIS_ITS ---
Intake Visit Reasons: PSMA/PSA(set) Intake Note: Patient presents today for PSA Results. Meds- Tadalafil Allergies to Antibiotic- None Blood Thinner- Warfarin PSA- 3.84 ng/mL, 09/06/2023 Central Service Tech Required: No Allergies No Known Allergies [No Known Allergies*] Allergy (Verified 09/01/23 09:48) Medication List - Last Reconciled 09/19/23 by Jian Russo MD acetaminophen 650 mg PO Q6H PRN atenolol 50 mg PO DAILY atorvastatin 40 mg PO BEDTIME [compression stockings knee-high 20 mmHg] furosemide 40 mg PO QAM lactulose 15 mL PO DAILY lisinopril 20 mg PO DAILY 90 days oxycodone-acetaminophen 5-325 mg 1 tab PO Q12H PRN 30 days potassium chloride ER (Klor-Con M) 20 mEq PO QAM tadalafil 10 mg PO DAILY 90 days warfarin 5 mg See Protocol PO DAILY 90 days HPI Comments Details: Andres is a very pleasant male. He is a patient of Dr. Peterson. He is seen for the following urologic conditions - prostate cancer - laura recurrence - erectile dysfunction Discussed PET-CT resolved. Slow rising PSA. Three-month follow-up repeat lab work, DEXA scan for bone density May require 18 months therapy 09/21 PSA 3.8 PET-CT - complete resolution of PSA May avid pelvic lymphadenopathy, new left rib activity 11/20 - PSA <0.1, T1 23 Restart tadalafil 10 mg daily 01/20 mitral valve prolapse with replacement at [facility] - dislodged mitral clip into right ostia Prostate cancer: [place] 4 + 4, group 4, XRT with hormones 2016 - recurrence 2021 pelvic laura with focal XRT and hormones 09/19 PET-CT scan shows positive laura disease along pelvic and retroperitoneal wall Radiation boost therapy with Dr. Walters at [facility] and 6m hormones Prostate cancer was diagnosed 03/2016 Dr Russo. Diagnosis was reached by needle biopsy, for elevated PSA, PSA at diagnosis 35. The [place] grade is 9/12 cores , 4+4 = 8 and , 4+3 = 7 > 40% in all cores. TNM Classification of Malignant Tumours (TNM) T2b. The [place]kit (NCCN) risk category is High Risk (PSA > 20, Gl 8+, T3) - MSK nomagram pre treatment - 3% OCD, 95% FIDELINA, 70% LNI. Initial therapy included Primary treatment - bicalutamide, hormones 05/05/16 - GnRH , External beam radiation with short term hormonal ablation complete 10/15 - [facility] Recent labs included a PSA (prostate-specific antigen) 05/17 on bicalutamide only - 4.6, T 272 07/15 a PSA (prostate-specific antigen) 0.18, T 12 02/14 , a PSA (prostate-specific antigen) 0.22, , T 12 07/16 PSA 0.2, 10/16 PSA 0.15, 02/15 PSA 0.15 T 193 07/17 PSA 0.5 T 245, 01/17 PSA 1.2 T 260 05/20 0.5 T 240, 10/18 1.7 - 03/20 1.9 - 06/21 1.4, 12/19 2.4, 03/21 2.5, 07/20 4.3, 09/19 3.5, 05/23 <0.1 Recent imaging included 04/15 , a CT (computed tomography) scan - pelvic node 04/15 , a bone scan - negative 07/15 , a DEXA scan - normal. - 07/[address] with laura disease along pelvic basin to retroperitoneal wall PFSH Medical History Seroma after procedure Peripheral vascular disease Poor circulation Leg edema Morbid obesity Opiate dependence AXEL (obstructive sleep apnea) Lumbar degenerative disc disease PAF (paroxysmal atrial fibrillation) Essential hypertension History of stroke Paroxysmal atrial flutter Ventricular tachyarrhythmia Hypertrophic cardiomyopathy Surgical History H/O colonoscopy Status post aorto-coronary artery bypass graft Status post mitral valve replacement Status post implantation of mitral valve leaflet clip History of cardiac pacemaker (~03/2014) History of cardiac catheterization Family History Father Diabetes Mother No problems noted. Social History Housing: Apartment Alcohol intake: current Alcohol intake frequency: holidays/special occasions only Alcohol type: hard liquor Patient Tobacco Use Status: Never used Tobacco e-Cigarette/Vaping Use: Never Used Second Hand Smoke Exposure: No service: No Current occupational status: unemployed Cognitive needs: Yes Hearing needs: No Vision needs: Yes Review of Systems Const Denies chills and Denies fever(s) Card Reports no additional complaints and Denies syncope Resp Denies cough GI Denies abdominal pain and Denies heartburn Reports as per HPI and Denies change in libido Neuro Denies syncope Psych Denies change in libido Endo Denies change in libido Physical Exam Const General: cooperative, healthy appearing, comfortable and no acute distress Orientation/consciousness: patient oriented x3 HEENT Face and sinus: Yes normal facial exam Mouth: moist mucous membranes Neck Neck: Yes normal visual inspection, Yes full ROM and Yes trachea midline Chest Chest palpation & inspection: normal inspection of the chest Resp Effort & Inspection: normal respiratory effort, able to speak in complete sentences and no respiratory distress GI Inspection: Yes normal to inspection Back/Spine/Pelvis Cervical Spine: normal cervical lordosis Thoracic/Lumbar Spine: thoracic and lumbar spine normal to inspection Skin General skin exam: no rashes or lesions noted Neuro General: patient oriented x3, gait normal, tone normal and moves all extremities Extrem General: Yes normal to inspection and Yes capillary refill normal Assessment & Plan Assessment & Plan (1) Osteoporosis due to androgen therapy: Code(s): M81.8 - Other osteoporosis without current pathological fracture; T38.7X5A - Adverse effect of androgens and anabolic congeners, initial encounter Category: Medical (2) Prostate cancer metastatic to intraabdominal lymph node: Code(s): C61 - Malignant neoplasm of prostate; C77.2 - Secondary and unspecified malignant neoplasm of intra-abdominal lymph nodes Category: Medical Plan Continue surveillance lab work and imaging Orders: Orders Testosterone, Total 3 Months C61 - Malignant neoplasm of prostate, C77.2 - Secondary and unspecified malignant neoplasm of intra-abdominal lymph nodes Prostate Specific Antigen 3 Months C61 - Malignant neoplasm of prostate, C77.2 - Secondary and unspecified malignant neoplasm of intra-abdominal lymph nodes XR DEXA axial skeleton 3 Months C61 - Malignant neoplasm of prostate, C77.2 - Secondary and unspecified malignant neoplasm of intra-abdominal lymph nodes Medications: Refilled tadalafil 10 mg PO DAILY 90 days 90 tabs 1RF sexual activity N52.35 - Erectile dysfunction following radiation therapy Patient Instructions: Imaging studies, laboratory and physical exam results were discussed and reviewed in detail. No major barriers to patient understanding were identified. An opportunity to ask questions regarding the treatment plan was provided. All questions were answered. The patient expressed understanding and agreement with the above treatment plan. The patient is aware they should contact our office by phone for worsening of their current condition or the appearance of new urologic symptoms. Compliance is encouraged with any medications and followup testing that is ordered. It is a privilege to participate in the urologic care of your patient. If you have any questions or concerns regarding treatment for the above conditions, or other urologic issues, please do not hesitate to contact me. The office telephone contact is [phone]. This note is constructed using voice recognition software. While every effort has been made to ensure accuracy domain architect errors may have been included. Yours sincerely, Dr Jian Russo MD, [facility] - Urology Providers of Expert, Compassionate Care for the Genitourinary System Coding Level of Care Code Est Pt Level 4 (33424) Complex EM visit Add On G2211 Diagnoses Osteoporosis due to androgen therapy M81.8; T38.7X5A Prostate cancer metastatic to intraabdominal lymph node C61; C77.2
== END 2023-09-19 16:26 | disposition home or self-care (01) ==
PROVIDERS: PCP Internal Medicine; Visit Provider Urology
DX: M81.8 Other osteoporosis without current pathological fracture (principal); T38.7X5A Adverse effect of androgens and anabolic congeners, initial encounter; C61 Malignant neoplasm of prostate; C77.2 Secondary and unspecified malignant neoplasm of intra-abdominal lymph nodes
CPT/HCPCS: 99214; G2211

== ENCOUNTER → 2023-09-19 15:25 | Outpatient (BNVA) | payer OTHER, SELFPAY | PROVIDERS: PCP Internal Medicine; Visit Provider Urology | DX: M81.8 Other osteoporosis without current pathological fracture (principal); T38.7X5A Adverse effect of androgens and anabolic congeners, initial encounter; C61 Malignant neoplasm of prostate; C77.2 Secondary and unspecified malignant neoplasm of intra-abdominal lymph nodes | CPT/HCPCS: 99212 ==

== ENCOUNTER 2023-09-22 09:46 | Outpatient (AMB) | payer OTHER, SELFPAY ==
[2023-09-22 09:50] LABS: Prothrombin Time Whole Bld POC 30.1 sec (11.1-13.5); ~PT, ~INR - Anti Coag Clinic 2.5 (0.9-1.1)
--- NOTE | 2023-09-22 09:54 | MHC.OFFVISCO ---
Intake Intake Visit Reasons: Anticoagulation Allergies No Known Allergies [No Known Allergies*] Allergy (Verified 09/22/23 09:47) Medication List - Last Reconciled 09/22/23 by Brissa Daniels RN acetaminophen 650 mg PO Q6H PRN atenolol 50 mg PO DAILY atorvastatin 40 mg PO BEDTIME [compression stockings knee-high 20 mmHg] furosemide 40 mg PO QAM lactulose 15 mL PO DAILY lisinopril 20 mg PO DAILY 90 days oxycodone-acetaminophen 5-325 mg 1 tab PO Q12H PRN 30 days potassium chloride ER (Klor-Con M) 20 mEq PO QAM tadalafil 10 mg PO DAILY 90 days warfarin 5 mg See Protocol PO DAILY 90 days Nursing Note INR: 2.5 in therapeutic range of 2.5-3 Medications and supplements reviewed: no changes No changes in health, diet, medications, or supplements, Denies any signs and symptoms of bleeding or bruising or clotting. Bleeding, bruising, clotting discussed Nutritional guidance given avoid greens today and have a serving of foods that RAISE the INR. Food list reviewed with pt. Dose: 5mg daily F/U INR: 3 weeks Patient verbalizes understanding of instructions given Anti-Coag Initial Assessment Social Hx Patient Tobacco Use Status: Never used Tobacco alcohol intake: current Alcohol intake frequency: holidays/special occasions only Cardiovascular Hx: HTN, Arrhythmias and Cardiomyopathy Musculoskeletal Hx: Other Blood Disorder Hx: Hyperlipidemia Hx: Prostate Neurological Hx: Stroke/TIA Cancer HX: Yes (prostate) Psych. Illness/Depression: No Coding Level of Care Code Est Patient Level 1 Diagnoses Current use of anticoagulant therapy Z79.01 Assessment & Plan Assessment & Plan (1) Current use of anticoagulant therapy: Code(s): Z79.01 - MCFP (current) use of anticoagulants Category: Medical
== END 2023-09-22 09:57 | disposition home or self-care (01) ==
LOC: HO.ACS 09:46
PROVIDERS: PCP Internal Medicine; Visit Provider Internal Medicine
DX: Z79.01 Long term (current) use of anticoagulants (principal)

== ENCOUNTER → 2023-09-22 09:46 | Outpatient (BNVA) | payer OTHER, SELFPAY | PROVIDERS: PCP Internal Medicine; Visit Provider Internal Medicine | DX: Z95.2 Presence of prosthetic heart valve (principal); Z79.01 Long term (current) use of anticoagulants; Z51.81 Encounter for therapeutic drug level monitoring | CPT/HCPCS: 85610; 99211 ==

== ENCOUNTER 2023-10-12 13:08 | Outpatient (AMB) | payer OTHER, SELFPAY ==
[2023-10-12 13:27] VITALS: BP 102/70; PULSE 60; O2SAT 98; BMI 41.9
--- NOTE | 2023-10-12 13:27 | MHC.OFFVIS ---
Vital Signs 10/12/23 13:27 Height 6 ft 1 in Weight 317 lb 7.45 oz BMI 41.9 BP 102/70 Blood Pressure Location Lt brachial Position Sitting Pulse 60 Pulse Source Pulse Oximeter Pulse Oximetry (%) 98 Oxygen Delivery Method Room Air Intake Visit Reasons: sleep apnea Intake Note: pt is here for follow up and states he is doing well with cpap Supervisor Steffen House Required: No Allergies No Known Allergies [No Known Allergies*] Allergy (Verified 10/12/23 13:42) Medication List - Last Reconciled 10/12/23 by Yamilka Bustillo MD acetaminophen 650 mg PO Q6H PRN atenolol 50 mg PO DAILY atorvastatin 40 mg PO BEDTIME [compression stockings knee-high 20 mmHg] furosemide 40 mg PO QAM lactulose 15 mL PO DAILY lisinopril 20 mg PO DAILY 90 days oxycodone-acetaminophen 5-325 mg 1 tab PO Q12H PRN 30 days potassium chloride ER (Klor-Con M) 20 mEq PO QAM tadalafil 10 mg PO DAILY 90 days warfarin 5 mg See Protocol PO DAILY 90 days Do you need a note to return to daycare/school/sports/work: No HPI HPI sleep apnea: Details: 68 YEARS OLD GENTLEMAN WITH MORBID OBESITY, KNOWN CASE OF OBSTRUCTIVE SLEEP APNEA, REGULAR USER OF CPAP, . AND IS DOING WELL HE COMES FOR FOLLOW-UP AFTER 6 MONTHS. USES CPAP EVERY NIGHT AND FOR AT LEAST 6 HOURS PER NIGHT. CLAIMS THAT HE SLEEPS GOOD. BREATHING HAS BEEN OKAY THE MAIN PROBLEM IS THAT HE IS NOT ABLE TO LOSE WEIGHT AND HAS RATHER GAINED SOME WEIGHT IN THE LAST 6 MONTHS. [facility] Medical History Seroma after procedure Peripheral vascular disease Poor circulation Leg edema Morbid obesity Opiate dependence AXEL (obstructive sleep apnea) Lumbar degenerative disc disease PAF (paroxysmal atrial fibrillation) Essential hypertension History of stroke Paroxysmal atrial flutter Ventricular tachyarrhythmia Hypertrophic cardiomyopathy Surgical History H/O colonoscopy Status post aorto-coronary artery bypass graft Status post mitral valve replacement Status post implantation of mitral valve leaflet clip History of cardiac pacemaker (~03/2014) History of cardiac catheterization Family History Father Diabetes Mother No problems noted. Social History Housing: Apartment Alcohol intake: current Alcohol intake frequency: holidays/special occasions only Alcohol type: hard liquor Patient Tobacco Use Status: Never used Tobacco e-Cigarette/Vaping Use: Never Used Second Hand Smoke Exposure: No service: No Current occupational status: unemployed Cognitive needs: Yes Hearing needs: No Vision needs: Yes Review of Systems Const All systems reviewed & are unremarkable except as noted in HPI and below Reports fatigue and Reports snoring Eyes Reports no additional complaints ENT Reports no additional complaints Card Denies irregular heart rhythm, Denies leg edema and Reports dyspnea on exertion Resp Denies cough, Reports dyspnea on exertion, Reports snoring and Denies wheezing GI Reports no additional complaints Reports no additional complaints and Reports other (Past history of treatment for prostate cancer) Musc Reports back pain Skin/Breast Reports system reviewed and no additional complaints, except as documented Neuro Reports no additional complaints Psych Reports no additional complaints Endo Reports fatigue Aller/Immun Denies wheezing Physical Exam Vital Signs: Last Vital Signs Pulse 60 10/12/23 13:27 BP 102/70 10/12/23 13:27 Pulse Ox 98 10/12/23 13:27 Oxygen Delivery Method Room Air 10/12/23 13:27 BMI result Body Mass Index 41.9 Const Other: Grossly obese General: comfortable, no acute distress, alert and awake Orientation/consciousness: patient oriented x3 HEENT Head: Yes normal to inspection General nose exam: No nasal polyps present and No nasal discharge present Face and sinus: Yes sinuses nontender Mouth: oropharynx normal Throat: No posterior oropharynx normal (Moderately crowded, Mallampati class 3. ) and No uvula laterally displaced (Patient has had uvulopalatoplasty) Eyes General: appearance normal, both eyes and all related structures Neck Neck: Yes normal visual inspection, Yes no lymphadenopathy, Yes trachea midline and Yes no JVD Thyroid: Thyroid normal Chest Chest palpation & inspection: normal inspection of the chest, normal palpation of entire chest wall and no tenderness Resp Effort & Inspection: normal respiratory effort Auscultation: clear to auscultation bilaterally, no crackles and no wheezes Cardio Palpation: normal PMI Rate: regular rate Rhythm: regular rhythm Heart sounds: no gallops and no murmurs Peripheral pulses: Peripheral pulses 2+ throughout GI Palpation (GI): Soft to palpation, nontender, No hepatosplenomegaly present and no masses Auscultation: normal bowel sounds Back/Spine/Pelvis Thoracic/Lumbar Spine: thoracic and lumbar spine normal to inspection and thoraco-lumbar ROM limited Skin General skin exam: no rashes or lesions noted Neuro General: patient oriented x3 and no focal motor deficits Cranial nerves: Yes CN's II-XII intact bilaterally Extrem General: Yes normal to inspection, Yes no clubbing, cyanosis or edema and Yes no calf tenderness Psych Appearance: grossly normal and well kempt Speech and movement: Normal speech and movement present Results Reviewed Results Reviewed: COMPLIANCE REPORT FOR THE LAST 30 NIGHTS IS REVIEWED. HIS USAGE IS, 100% OF THE NIGHTS AND AVERAGE USE IT PER NIGHT 6 HOURS 37 MINUTES. THERE IS MODERATE AMOUNT OF AIR LEAK RESIDUAL AHI = 2.8 Assessment & Plan Assessment & Plan (1) Morbid obesity: Comment: The patient is relatively inactive. He does have gross obesity. He has gained some weight in the last 6 months. ,He is a simple minded javier . I do not expect him to lose much weight. Code(s): E66.01 - Morbid (severe) obesity due to excess calories Category: Medical Plan: Talked to him at length about his weight issue. Advised that he should cut out carbohydrates. He should walk around daily. (2) AXEL (obstructive sleep apnea): Comment: He does have severe obstructive Sleep apnea He is very very compliant and benefits from the use of CPAP. His sleep quality is much better. Code(s): G47.33 - Obstructive sleep apnea (adult) (pediatric) Category: Medical Plan: Commended for good compliance and advised to keep on using the CPAP every night for at least 6 hours per night. Keep the straps tightened. Coding Level of Care Code Est Pt Level 3 (09008) Diagnoses Morbid obesity E66.01 AXEL (obstructive sleep apnea) G47.33
== END 2023-10-12 13:43 | disposition home or self-care (01) ==
PROVIDERS: PCP Internal Medicine; Visit Provider Internal Medicine
DX: E66.01 Morbid (severe) obesity due to excess calories (principal); G47.33 Obstructive sleep apnea (adult) (pediatric)
CPT/HCPCS: 99213

== ENCOUNTER → 2023-10-12 13:08 | Outpatient (BNVA) | payer OTHER, SELFPAY | PROVIDERS: PCP Internal Medicine; Visit Provider Internal Medicine | DX: G47.33 Obstructive sleep apnea (adult) (pediatric) (principal); E66.01 Morbid (severe) obesity due to excess calories; Z68.41 Body mass index [BMI] 40.0-44.9, adult | CPT/HCPCS: 99212 ==

== ENCOUNTER 2023-10-13 10:28 | Outpatient (AMB) | payer OTHER, SELFPAY ==
[2023-10-13 11:00] LABS: Prothrombin Time Whole Bld POC 40.1 sec (11.1-13.5); ~PT, ~INR - Anti Coag Clinic 3.3 (0.9-1.1)
--- NOTE | 2023-10-13 11:02 | MHC.OFFVISCO ---
Intake Intake Visit Reasons: Anticoagulation Allergies No Known Allergies [No Known Allergies*] Allergy (Verified 10/13/23 10:55) Medication List - Last Reconciled 10/13/23 by Brissa Doll RN acetaminophen 650 mg PO Q6H PRN atenolol 50 mg PO DAILY atorvastatin 40 mg PO BEDTIME [compression stockings knee-high 20 mmHg] furosemide 40 mg PO QAM lactulose 15 mL PO DAILY lisinopril 20 mg PO DAILY 90 days oxycodone-acetaminophen 5-325 mg 1 tab PO Q12H PRN 30 days potassium chloride ER (Klor-Con M) 20 mEq PO QAM tadalafil 10 mg PO DAILY 90 days warfarin 5 mg See Protocol PO DAILY 90 days Nursing Note Amb to ACS feeling well Medications and supplements reviewed No changes in health, diet, medications, or supplements, Denies any signs and symptoms of bleeding or bruising or clotting. INR 3.3 above therapeutic range Dose: to decrease dose today to 2.5mg the resume usual 5mg daily tomorrow Nutritional guidance given: balance greens and reds in diet F/U INR: 2 weeks Patient verbalizes understanding of instructions given Anti-Coag Initial Assessment Social Hx Patient Tobacco Use Status: Never used Tobacco alcohol intake: current Alcohol intake frequency: holidays/special occasions only Cardiovascular Hx: HTN, Arrhythmias and Cardiomyopathy Musculoskeletal Hx: Other Blood Disorder Hx: Hyperlipidemia Hx: Prostate Neurological Hx: Stroke/TIA Cancer HX: Yes (prostate) Psych. Illness/Depression: No Coding Level of Care Code Est Patient Level 1 Diagnoses Current use of anticoagulant therapy Z79.01 Time Spent (min) 15 Assessment & Plan Assessment & Plan (1) Current use of anticoagulant therapy: Code(s): Z79.01 - long-term (current) use of anticoagulants Category: Medical
== END 2023-10-13 11:05 | disposition home or self-care (01) ==
LOC: HO.ACS 10:28
PROVIDERS: PCP Internal Medicine; Visit Provider Internal Medicine
DX: Z79.01 Long term (current) use of anticoagulants (principal)

== ENCOUNTER → 2023-10-13 10:28 | Outpatient (BNVA) | payer OTHER, SELFPAY | PROVIDERS: PCP Internal Medicine; Visit Provider Internal Medicine | DX: Z95.2 Presence of prosthetic heart valve (principal); Z79.01 Long term (current) use of anticoagulants; Z51.81 Encounter for therapeutic drug level monitoring | CPT/HCPCS: 85610; 99211 ==

== ENCOUNTER 2023-10-27 10:34 | Outpatient (AMB) | payer OTHER, SELFPAY ==
[2023-10-27 11:07] LABS: Prothrombin Time Whole Bld POC 23.4 sec (11.1-13.5); ~PT, ~INR - Anti Coag Clinic 1.9 (0.9-1.1)
--- NOTE | 2023-10-27 11:12 | MHC.OFFVISCO ---
Intake Intake Visit Reasons: Anticoagulation Allergies No Known Allergies [No Known Allergies*] Allergy (Verified 10/27/23 11:01) Medication List - Last Reconciled 10/27/23 by Brissa Doll RN acetaminophen 650 mg PO Q6H PRN atenolol 50 mg PO DAILY atorvastatin 40 mg PO BEDTIME [compression stockings knee-high 20 mmHg] furosemide 40 mg PO QAM lactulose 15 mL PO DAILY lisinopril 20 mg PO DAILY 90 days oxycodone-acetaminophen 5-325 mg 1 tab PO Q12H PRN 30 days potassium chloride ER (Klor-Con M) 20 mEq PO QAM tadalafil 10 mg PO DAILY 90 days warfarin 5 mg See Protocol PO DAILY 90 days Nursing Note Amb to ACS feeling well Medications and supplements reviewed No changes in health, diet, medications, or supplements, Denies any signs and symptoms of bleeding, bruising, or clotting. Bleeding, bruising, clotting discussed INR 1.9 below therapeutic range if 2.5-3.0 denies any missed dose, no increase in greens to increase dose today to 7.5mg vs 5mg then resume usual 5mg daily dosing Nutritional guidance given no greens x 3 days, reds to raise, sts he has some grapes, will also have watermelon F/U INR: November 07, 2023 Patient verbalizes understanding of instructions given, phone number verified for possible call back with any new orders from PCP TC to Dr Nazario office and INR reported to Jerri ASCENCIO as well as dosing, and F/U Anti-Coag Initial Assessment Social Hx Patient Tobacco Use Status: Never used Tobacco alcohol intake: current Alcohol intake frequency: holidays/special occasions only Cardiovascular Hx: HTN, Arrhythmias and Cardiomyopathy Musculoskeletal Hx: Other Blood Disorder Hx: Hyperlipidemia Hx: Prostate Neurological Hx: Stroke/TIA Cancer HX: Yes (prostate) Psych. Illness/Depression: No Coding Level of Care Code Est Patient Level 1 Diagnoses Current use of anticoagulant therapy Z79.01 Time Spent (min) 15 Assessment & Plan Assessment & Plan (1) Current use of anticoagulant therapy: Code(s): Z79.01 - care home (current) use of anticoagulants Category: Medical
== END 2023-10-27 11:27 | disposition home or self-care (01) ==
LOC: HO.ACS 10:34
PROVIDERS: PCP Internal Medicine; Visit Provider Internal Medicine
DX: Z79.01 Long term (current) use of anticoagulants (principal)

== ENCOUNTER → 2023-10-27 10:34 | Outpatient (BNVA) | payer OTHER, SELFPAY | PROVIDERS: PCP Internal Medicine; Visit Provider Internal Medicine | DX: Z95.2 Presence of prosthetic heart valve (principal); Z79.01 Long term (current) use of anticoagulants; Z51.81 Encounter for therapeutic drug level monitoring | CPT/HCPCS: 85610; 99211 ==

== ENCOUNTER 2023-11-07 10:42 | Outpatient (AMB) | payer OTHER, SELFPAY ==
--- NOTE | 2023-11-07 11:04 | MHC.OFFVISCO ---
Intake Intake Visit Reasons: Anticoagulation Allergies No Known Allergies [No Known Allergies*] Allergy (Verified 11/07/23 10:56) Medication List - Last Reconciled 11/07/23 by Brissa Daniels RN acetaminophen 650 mg PO Q6H PRN atenolol 50 mg PO DAILY atorvastatin 40 mg PO BEDTIME [compression stockings knee-high 20 mmHg] furosemide 40 mg PO QAM lactulose 15 mL PO DAILY lisinopril 20 mg PO DAILY 90 days oxycodone-acetaminophen 5-325 mg 1 tab PO Q12H PRN 30 days potassium chloride ER (Klor-Con M) 20 mEq PO QAM tadalafil 10 mg PO DAILY 90 days warfarin 5 mg See Protocol PO DAILY 90 days Nursing Note INR: 2.7 in therapeutic range of 2.5-3 Medications and supplements reviewed No changes in health, diet, medications, or supplements, Denies any signs and symptoms of bleeding or bruising or clotting. Bleeding, bruising, clotting discussed Nutritional guidance given to continue to balance greens and reds Dose: 5mg daily F/U INR: 3 weeks Patient verbalizes understanding of instructions given Anti-Coag Initial Assessment Social Hx Patient Tobacco Use Status: Never used Tobacco alcohol intake: current Alcohol intake frequency: holidays/special occasions only Cardiovascular Hx: HTN, Arrhythmias and Cardiomyopathy Musculoskeletal Hx: Other Blood Disorder Hx: Hyperlipidemia Hx: Prostate Neurological Hx: Stroke/TIA Cancer HX: Yes (prostate) Psych. Illness/Depression: No Coding Level of Care Code Est Patient Level 1 Diagnoses Current use of anticoagulant therapy Z79.01 Results AMB INR Fingerstick AMB INR Fingerstick 2.7 Last Edit by Brissa Daniels RN on 11/07/23 11:03 interface delay Assessment & Plan Assessment & Plan (1) Current use of anticoagulant therapy: Code(s): Z79.01 - continuous churn buttermaker (current) use of anticoagulants Category: Medical
[2023-11-07 11:09] LABS: Prothrombin Time Whole Bld POC 32.4 sec (11.1-13.5); ~PT, ~INR - Anti Coag Clinic 2.7 (0.9-1.1)
== END 2023-11-07 11:06 | disposition home or self-care (01) ==
LOC: HO.ACS 10:42
PROVIDERS: PCP Internal Medicine; Visit Provider Internal Medicine
DX: Z79.01 Long term (current) use of anticoagulants (principal)

== ENCOUNTER → 2023-11-07 10:42 | Outpatient (BNVA) | payer OTHER, SELFPAY | PROVIDERS: PCP Internal Medicine; Visit Provider Internal Medicine | DX: Z95.2 Presence of prosthetic heart valve (principal); Z79.01 Long term (current) use of anticoagulants; Z51.81 Encounter for therapeutic drug level monitoring | CPT/HCPCS: 85610; 99211 ==

== ENCOUNTER 2023-11-22 07:43 | Outpatient (REF) | payer OTHER, SELFPAY ==
[2023-11-22 07:56] LABS: MANUAL DIFF FLAG NO
[2023-11-22 08:18] LABS: Basophils Percent Auto 0.7 % (0-2); Eosinophils Absolute Auto 0.3 X10*3/uL (0.0-0.4); Eosinophils Percent Auto 4.6 % (0-4); Hematocrit 41.7 % (42.0-52.0); Hemoglobin 13.4 g/dl (14.0-18.0); Imm Gran Abs Auto 0.02 X10*3/uL (0.00-0.03); Imm Gran Pct Auto 0.4 % (0.0-0.4); Lymphocytes Absolute Auto 1.6 X10*3/uL (1.2-4.9); Lymphocytes Percent Auto 28.6 % (20-40); Mean Corpuscular HGB Conc 32.1 g/dl (31.0-36.0); Mean Corpuscular Hemoglobin 29.6 pg (27.0-33.0); Mean Corpuscular Volume 92.1 fL (80.0-98.0); Mean Platelet Volume 10.2 fL (9.4-12.4); Monocytes Absolute Auto 0.6 X10*3/uL (0.1-1.2); Monocytes Percent Auto 9.8 % (2-11); Neutrophils Absolute Auto 3.1 x10*3/uL (2.0-8.3); Neutrophils Percent Auto 55.9 % (45-73); Platelet Count 177 X10*3/uL (160-400); Red Blood Count 4.53 X10*6/uL (4.60-5.80); Red Cell Distribution Width 13.2 % (11.0-16.0); White Blood Count 5.6 X10*3/uL (4.8-10.8)
[2023-11-22 09:04] LABS: Alanine Aminotransferase 23 U/L (0-40); Albumin Level 4.2 g/dL (3.5-5.0); Alkaline Phosphatase 65 U/L (39-117); Anion Gap 14 (12-20); Aspartate Amino Transferase 29 U/L (5-37); Bilirubin Total 1.8 mg/dL (0.0-1.0); Blood Urea Nitrogen 18 mg/dL (9-16); Calcium 9.4 mg/dL (8.4-10.2); Carbon Dioxide 25 mmol/L (22-29); Chloride 105 mmol/L (96-108); Cholesterol 115 mg/dL (<200); Estimated Glomerular Filt Rate > 60; Glucose Fasting 102 mg/dL (60-99); HDL Cholesterol 53 mg/dL (>40); Iron 83 mcg/dL (45-160); LDL Cholesterol Calculated 47 mg/dL (<100); Percent Iron Saturation 29 % (15-50); Potassium 4.2 mmol/L (3.3-5.1); Sodium 140 mmol/L (135-145); Total Iron Binding Capacity 287 mcg/dL (228-428); Total Protein 7.5 g/dL (6.5-8.0); Triglycerides 77 mg/dL (<150); Unsaturated Iron Binding 204 ug/dL
[2023-11-22 09:21] LABS: Vitamin D 25-OH Total 29.3 ng/mL (>30)
== END 2023-11-22 07:44 | disposition home or self-care (01) ==
LOC: HO.LAB 07:43
PROVIDERS: PCP Internal Medicine; Visit Provider Internal Medicine
DX: E55.9 Vitamin D deficiency, unspecified (principal); I10 Essential (primary) hypertension; D64.9 Anemia, unspecified; E78.5 Hyperlipidemia, unspecified
CPT/HCPCS: 36415; 80053; 80061; 82306; 83540; 85025

== ENCOUNTER 2023-11-29 15:25 | Outpatient (AMB) | payer OTHER, SELFPAY ==
[2023-11-29 15:52] VITALS: BP 120/80; BMI 41.2
--- NOTE | 2023-11-29 15:52 | A.OFFPC_ITS ---
Vital Signs 11/29/23 15:52 Height 6 ft 1 in Weight 312 lb BMI 41.2 BP 120/80 Blood Pressure Location Lt brachial Position Sitting Intake Visit Reasons: bp Valve Assembler Required: No Accompanied by: Self / Same As Patient Allergies No Known Allergies [No Known Allergies*] Allergy (Verified 11/29/23 16:06) Medication List - Last Reconciled 11/29/23 by Barbara Peterson MD acetaminophen 650 mg PO Q6H PRN atenolol 50 mg PO DAILY atorvastatin 40 mg PO BEDTIME [compression stockings knee-high 20 mmHg] furosemide 40 mg PO QAM lactulose 15 mL PO DAILY lisinopril 20 mg PO DAILY 90 days oxycodone-acetaminophen 5-325 mg 1 tab PO Q12H PRN 30 days potassium chloride ER (Klor-Con M) 20 mEq PO QAM tadalafil 10 mg PO DAILY 90 days warfarin 5 mg See Protocol PO DAILY 90 days Tobacco use date assessed: 07/26/23 Dental Screening Dental Screen Date: 07/26/23 HPI HPI Comments History of Present Illness Details This is a 68-year-old male with hypertrophic cardiomyopathy, persistent atrial fibrillation on chronic anticoagulation, opiate dependence, morbid obesity and prostate cancer with meds that comes today for follow-up on his conditions. Hypertrophic cardiomyopathy and atrial fibrillation are follow by cardiology. Has not gain 5 lb in a week and looks euvolemic. Denies any active bleeding. Opiate dependence has been stable with oxycodone as needed for chronic pain. He is morbidly obese with a BMI of 41.2 and declines weight loss surgery. Was advised to do diet and exercise to reach BMI goal less than 30. Prostate cancer is follow by Urology which is monitoring it. No chest pain or shortness on breath. [facility] Medical History (Updated 11/29/23 @ 19:29 by Barbara Peterson MD) Prostate cancer Seroma after procedure Peripheral vascular disease Poor circulation Leg edema Morbid obesity Opiate dependence AXEL (obstructive sleep apnea) Lumbar degenerative disc disease PAF (paroxysmal atrial fibrillation) Essential hypertension History of stroke Paroxysmal atrial flutter Ventricular tachyarrhythmia Hypertrophic cardiomyopathy Surgical History H/O colonoscopy Status post aorto-coronary artery bypass graft Status post mitral valve replacement Status post implantation of mitral valve leaflet clip History of cardiac pacemaker (~03/2014) History of cardiac catheterization Family History Father Diabetes Mother No problems noted. Social History Housing: Apartment Alcohol intake: current Alcohol intake frequency: holidays/special occasions only Alcohol type: hard liquor Patient Tobacco Use Status: Never used Tobacco e-Cigarette/Vaping Use: Never Used Second Hand Smoke Exposure: No service: No Current occupational status: unemployed Cognitive needs: Yes Hearing needs: No Vision needs: Yes Questionnaire Thrive Questionnaire Date Thrive assessed: 07/26/23 JOAQUIM-7 AMB Questionnaire JOAQUIM-7 Date JOAQUIM - 7 assessed: 07/26/23 Source: Developed by Drs. Anup Nieto, Hilda Terry, Florian Kearney and colleagues, with an educational yumi from [employer] ([employer]). Review of Systems Const All systems reviewed & are unremarkable except as noted in HPI and below Card Denies chest pain at rest, Denies chest pain with activity, Denies edema, Denies irregular heart rhythm, Denies claudication, Denies dyspnea, Denies dyspnea on exertion, Denies orthopnea, Denies paroxysmal nocturnal dyspnea and Denies slow heart rate Resp Denies cough, Denies dyspnea and Denies dyspnea on exertion GI Denies abdominal pain, Denies change in bowel habits, Denies excessive flatus, Denies nausea and Denies vomiting Denies urinary hesitancy, Denies urinary incontinence and Denies urinary urgency Physical exam (Primary Care) Vital Signs: Last Vital Signs BP 120/80 11/29/23 15:52 BMI result Body Mass Index 41.2 BMI Assessment/Plan discussion: High BMI High, discussed plan: lifestyle, weight reduction, dietary and physical activity Tobacco/Smoking Status: Tobacco use Status Tobacco use date assessed 07/26/23 11/29/23 15:56 Patient Tobacco Use Status Never used Tobacco 11/29/23 15:56 e-Cigarette/Vaping Use Never Used 11/29/23 15:56 Thrive Assessment: Date of Thrive Assessment Date Thrive assessed 07/26/23 11/29/23 15:56 Resp Effort & Inspection: normal respiratory effort Auscultation: clear to auscultation bilaterally Cardio Jugular venous distension: no JVD Rate: regular rate Rhythm: regular rhythm Heart sounds: S1 normal heart sound present and S2 normal heart sound present Extrem General: Yes full ROM Assessment and Plan Assessment & Plan (1) Prostate cancer metastatic to intraabdominal lymph node: Code(s): C61 - Malignant neoplasm of prostate; C77.2 - Secondary and unspecified malignant neoplasm of intra-abdominal lymph nodes (2) Persistent atrial fibrillation: Code(s): I48.19 - Other persistent atrial fibrillation (3) Morbid obesity: Comment: The patient is relatively inactive. He does have gross obesity. He has gained some weight in the last 6 months. ,He is a simple minded javier . I do not expect him to lose much weight. Code(s): E66.01 - Morbid (severe) obesity due to excess calories (4) Opiate dependence: Code(s): F11.20 - Opioid dependence, uncomplicated Qualifiers: Substance use status: uncomplicated Qualified Code(s): F11.20 - Opioid dependence, uncomplicated (5) Hypertrophic cardiomyopathy: Code(s): I42.2 - Other hypertrophic cardiomyopathy Orders: Orders Complete Blood Count Auto Diff 4 Months D64.9 - Anemia, unspecified Lipid Panel 4 Months E78.5 - Hyperlipidemia, unspecified Comprehensive [place]. Panel Fast 4 Months I10 - Essential (primary) hypertension IRON PROFILE 4 Months D64.9 - Anemia, unspecified Vitamin D 25-OH Total 4 Months E55.9 - Vitamin D deficiency, unspecified Medications: Refilled potassium chloride ER (Klor-Con M) 20 mEq PO QAM 90 tabs 3RF Coding Level of Care Code Est Pt Level 4 (13099) Complex EM visit Add On G2211 Diagnoses Prostate cancer metastatic to intraabdominal lymph node C61; C77.2 Persistent atrial fibrillation I48.19 Morbid obesity E66.01 Uncomplicated opioid dependence F11.20 Substance use status: uncomplicated Hypertrophic cardiomyopathy I42.2 Time Spent (min) 23
== END 2023-11-29 16:15 | disposition home or self-care (01) ==
PROVIDERS: PCP Internal Medicine; Visit Provider Internal Medicine
DX: C61 Malignant neoplasm of prostate (principal); C77.2 Secondary and unspecified malignant neoplasm of intra-abdominal lymph nodes; I48.19 Other persistent atrial fibrillation; I42.2 Other hypertrophic cardiomyopathy
CPT/HCPCS: 99214; G2211

== ENCOUNTER 2023-12-01 10:36 | Outpatient (AMB) | payer OTHER, SELFPAY ==
[2023-12-01 10:41] LABS: Prothrombin Time Whole Bld POC 30.3 sec (11.1-13.5); ~PT, ~INR - Anti Coag Clinic 2.5 (0.9-1.1)
--- NOTE | 2023-12-01 10:47 | MHC.OFFVISCO ---
Intake Intake Visit Reasons: Anticoagulation Allergies No Known Allergies [No Known Allergies*] Allergy (Verified 12/01/23 10:37) Medication List - Last Reconciled 12/01/23 by Corrie Flores RN acetaminophen 650 mg PO Q6H PRN atenolol 50 mg PO DAILY atorvastatin 40 mg PO BEDTIME [compression stockings knee-high 20 mmHg] furosemide 40 mg PO QAM lactulose 15 mL PO DAILY lisinopril 20 mg PO DAILY 90 days oxycodone-acetaminophen 5-325 mg 1 tab PO Q12H PRN 30 days potassium chloride ER (Klor-Con M) 20 mEq PO QAM tadalafil 10 mg PO DAILY 90 days warfarin 5 mg See Protocol PO DAILY 90 days Nursing Note NO CP,SOB,DIET/MED CHANGES,FALLS OR SX OF BLEEDING. CONTINUE 5MGM DAILY AND FOLLOW-UP IN 5 WEEKS. GOOD UNDERSTANDING OF DOSING INSTR. Anti-Coag Initial Assessment Social Hx Patient Tobacco Use Status: Never used Tobacco alcohol intake: current Alcohol intake frequency: holidays/special occasions only Cardiovascular Hx: HTN, Arrhythmias and Cardiomyopathy Musculoskeletal Hx: Other Blood Disorder Hx: Hyperlipidemia Hx: Prostate Neurological Hx: Stroke/TIA Cancer HX: Yes (prostate) Psych. Illness/Depression: No Coding Level of Care Code Est Patient Level 1 Diagnoses Current use of anticoagulant therapy Z79.01 Assessment & Plan Assessment & Plan (1) Current use of anticoagulant therapy: Code(s): Z79.01 - watermaster (current) use of anticoagulants Category: Medical
== END 2023-12-01 10:55 | disposition home or self-care (01) ==
LOC: HO.ACS 10:36
PROVIDERS: PCP Internal Medicine; Visit Provider Internal Medicine
DX: Z79.01 Long term (current) use of anticoagulants (principal)

== ENCOUNTER → 2023-12-01 10:36 | Outpatient (BNVA) | payer OTHER, SELFPAY | PROVIDERS: PCP Internal Medicine; Visit Provider Internal Medicine | DX: Z95.2 Presence of prosthetic heart valve (principal); Z79.01 Long term (current) use of anticoagulants; Z51.81 Encounter for therapeutic drug level monitoring | CPT/HCPCS: 85610; 99211 ==

== ENCOUNTER 2024-01-04 12:59 | Outpatient (AMB) | payer OTHER, SELFPAY ==
--- NOTE | 2024-01-04 13:12 | A.OFFVIS_ITS ---
Vital Signs 01/04/24 13:14 Height 6 ft 1 in Weight 312 lb 2.793 oz BMI 41.2 BP 126/84 Blood Pressure Location Rt brachial Position Sitting Pulse 63 Intake Visit Reasons: 6 mth f/up Jointer Submarine Cable Required: No Accompanied by: Self / Same As Patient Allergies No Known Allergies [No Known Allergies*] Allergy (Verified 12/01/23 10:37) Medication List - Last Reconciled 01/04/24 by Young Ramirez MD acetaminophen 650 mg PO Q6H PRN atenolol 50 mg PO DAILY atorvastatin 40 mg PO BEDTIME [compression stockings knee-high 20 mmHg] furosemide 40 mg PO QAM lactulose 15 mL PO DAILY lisinopril 20 mg PO DAILY 90 days oxycodone-acetaminophen 5-325 mg 1 tab PO Q12H PRN 30 days potassium chloride ER (Klor-Con M) 20 mEq PO QAM tadalafil 10 mg PO DAILY 90 days warfarin 5 mg See Protocol PO DAILY 90 days HPI Comments Details: Andres returns for follow-up regarding his various cardiac issues. He has a long and complex cardiac history. He was diagnosed with hypertrophic cardiomyopathy many years ago. Had an ICD placed for secondary prevention due to ventricular tachycardia. Also has paroxysmal atrial fibrillation that is rather persistent recently. Was taking Xarelto but there were compliance issues and he was then diagnosed with stroke. Then switched to Eliquis. Then in the last couple years diagnosed with severe mitral regurgitation and referred to [facility]. Underwent MitraClip placement. He was feeling better but then apparently few months back he called them as he did not feel good and according to patient, he went for another MitraClip. Then another hospitalization with shortness of breath and apparently had elevated troponins. Lead to cardiac catheterization and diagnosed with MitraClip embolism. Then transferred to [facility]. Had mitral valve replacement surgery. Overall, fairly complex history but considering all the above, he is actually feeling quite good. He states he feels very well in fact and has got no cardiac symptoms whatsoever. [facility] Medical History (Updated 11/29/23 @ 19:29 by Barbara Peterson MD) Prostate cancer Seroma after procedure Peripheral vascular disease Poor circulation Leg edema Morbid obesity Opiate dependence AXEL (obstructive sleep apnea) Lumbar degenerative disc disease PAF (paroxysmal atrial fibrillation) Essential hypertension History of stroke Paroxysmal atrial flutter Ventricular tachyarrhythmia Hypertrophic cardiomyopathy Surgical History H/O colonoscopy Status post aorto-coronary artery bypass graft Status post mitral valve replacement Status post implantation of mitral valve leaflet clip History of cardiac pacemaker (~03/2014) History of cardiac catheterization Family History Father Diabetes Mother No problems noted. Social History Housing: Apartment Alcohol intake: current Alcohol intake frequency: holidays/special occasions only Alcohol type: hard liquor Patient Tobacco Use Status: Never used Tobacco e-Cigarette/Vaping Use: Never Used Second Hand Smoke Exposure: No service: No Current occupational status: unemployed Cognitive needs: Yes Hearing needs: No Vision needs: Yes Review of Systems Const Denies chills, Denies fatigue, Denies fever(s), Denies weight gain and Denies weight loss ENT Denies dizziness Card Denies chest pain, Denies leg edema, Denies lightheadedness, Denies palpitati ons, Denies dyspnea on exertion, Denies orthopnea and Denies other Resp Denies cough and Denies dyspnea on exertion GI Denies hematochezia and Denies change in stool character Musc Denies abnormal gait, Denies muscle weakness, Denies numbness, Denies radiating pain into limb and Denies tingling Neuro Denies abnormal gait, Denies dizziness, Denies numbness and Denies tingling Endo Denies fatigue and Denies palpitations Physical Exam Vital Signs: Last Vital Signs Pulse 63 01/04/24 13:14 BP 126/84 01/04/24 13:14 BMI result Body Mass Index 41.2 Const General: comfortable and no acute distress Orientation/consciousness: patient oriented x3 HEENT Other: Unremarkable Head: Yes normal to inspection Neck Neck: Yes normal visual inspection Chest Chest palpation & inspection: normal inspection of the chest Resp Auscultation: clear to auscultation bilaterally Cardio Other: Normal prosthetic heart sounds GI Palpation (GI): Soft to palpation Back/Spine/Pelvis Other: unremarkable Skin General skin exam: no rashes or lesions noted Neuro General: patient oriented x3 Extrem General: Yes normal to inspection Psych Mental Status: mental status grossly normal Office Procedures EKG Details: EKG with probably underlying flutter versus fibrillation with conducted QRS complexes at an overall rate of 63/Min. Can not exclude old inferior or lateral infarct. [id number], Complete Assessment & Plan Assessment & Plan (1) Status post mitral valve replacement: Code(s): Z95.2 - Presence of prosthetic heart valve Category: Surgical Plan: Status post mechanical mitral valve replacement with On-X valve. Also had tricuspid valve repair with 34 mm Medtronic band. Per [facility] discharge summary, goal INR 2.5-3. 2-3 also mentioned to be as acceptable. He was on aspirin but decided not take it anymore. Infective endocarditis prophylaxis as needed. Normally functioning mechanical mitral valve on echocardiogram. (2) Status post implantation of mitral valve leaflet clip: Code(s): Z98.890 - Other specified postprocedural states; Z95.818 - Presence of other cardiac implants and grafts Category: Surgical Plan: Status post removal. (3) Status post aorto-coronary artery bypass graft: Code(s): Z95.1 - Presence of aortocoronary bypass graft Category: Surgical Plan: Status post CABG x1; saphenous vein graft right coronary artery. Based on the op note, embolization of MitraClip right coronary artery ostia with right coronary artery occlusion and acute MT. Based on catheterization report, no significant obstructive coronary disease overall. (4) Hypertrophic cardiomyopathy: Code(s): I42.2 - Other hypertrophic cardiomyopathy Category: Medical Plan: No active symptoms. He was on atenolol and verapamil. He is cut back on the atenolol dose himself. He has no longer taking verapamil either. He has been on disopyramide in the past as well. However, due to side effects could not tolerate. (5) Ventricular tachyarrhythmia: Code(s): I47.2 - Ventricular tachycardia Category: Medical Plan: He has had ICD for several years. No shocks delivered. We will recheck with next visit. (6) Persistent atrial fibrillation: Code(s): I48.19 - Other persistent atrial fibrillation Category: Medical Plan: As above, remains on beta-blockers. Continue anticoagulation. (7) Essential hypertension: Code(s): I10 - Essential (primary) hypertension Category: Medical Plan: Seems stable. No changes. (8) History of stroke: Code(s): Z86.73 - Personal history of transient ischemic attack (TIA), and cerebral infarction without residual deficits Category: Medical Plan: Likely cardioembolic. In the past, CTA has been performed at [facility] without any significant carotid disease. (9) AXEL (obstructive sleep apnea): Comment: He does have severe obstructive Sleep apnea He is very very compliant and benefits from the use of CPAP. His sleep quality is much better. Code(s): G47.33 - Obstructive sleep apnea (adult) (pediatric) Category: Medical Plan: h/o possibly uvulopalatopharyngoplasty per patient. Last sleep study reported to have severe AXEL. CPAP Plan He states he would like to avoid any unnecessary testing as he states his co-pay is too high. Hence we will order testing only if absolutely essential. Coding Level of Care Code Est Pt Level 4 (55964) Diagnoses Status post mitral valve replacement Z95.2 Status post implantation of mitral valve leaflet clip Z98.890; Z95.818 Status post aorto-coronary artery bypass graft Z95.1 Hypertrophic cardiomyopathy I42.2 Ventricular tachyarrhythmia I47.2 Persistent atrial fibrillation I48.19 Essential hypertension I10 History of stroke Z86.73 AXEL (obstructive sleep apnea) G47.33 CPT Codes EKG - CPT: 04733-[id number], Complete ([id number])
[2024-01-04 13:14] VITALS: BP 126/84; PULSE 63; BMI 41.2
== END 2024-01-04 13:37 | disposition home or self-care (01) ==
PROVIDERS: PCP Internal Medicine; Visit Provider Internal Medicine
DX: Z95.2 Presence of prosthetic heart valve (principal); Z98.890 Other specified postprocedural states; Z95.818 Presence of other cardiac implants and grafts; Z95.1 Presence of aortocoronary bypass graft; I42.2 Other hypertrophic cardiomyopathy; I47.20 Ventricular tachycardia, unspecified; I48.19 Other persistent atrial fibrillation; I10 Essential (primary) hypertension; Z86.73 Personal history of transient ischemic attack (TIA), and cerebral infarction without residual deficits; G47.33 Obstructive sleep apnea (adult) (pediatric)
CPT/HCPCS: 93010; 99214

== ENCOUNTER → 2024-01-04 12:59 | Outpatient (BNVA) | payer OTHER, SELFPAY | PROVIDERS: PCP Internal Medicine; Visit Provider Internal Medicine | DX: I42.2 Other hypertrophic cardiomyopathy (principal); I47.29 Other ventricular tachycardia; I48.19 Other persistent atrial fibrillation; I10 Essential (primary) hypertension; G47.33 Obstructive sleep apnea (adult) (pediatric); Z95.2 Presence of prosthetic heart valve; Z98.890 Other specified postprocedural states; Z95.818 Presence of other cardiac implants and grafts; Z95.1 Presence of aortocoronary bypass graft; Z86.73 Personal history of transient ischemic attack (TIA), and cerebral infarction without residual deficits; Z99.89 Dependence on other enabling machines and devices | CPT/HCPCS: 93005; 99212 ==

== ENCOUNTER 2024-01-05 10:19 | Outpatient (AMB) | payer OTHER, SELFPAY ==
[2024-01-05 10:25] LABS: ~PT, ~INR - Anti Coag Clinic 2.9 (0.9-1.1)
--- NOTE | 2024-01-05 10:28 | MHC.OFFVISCO ---
Intake Intake Visit Reasons: Anticoagulation Allergies No Known Allergies [No Known Allergies*] Allergy (Verified 01/05/24 10:19) Medication List - Last Reconciled 01/05/24 by Hanna Magaña RN acetaminophen 650 mg PO Q6H PRN atenolol 50 mg PO DAILY atorvastatin 40 mg PO BEDTIME [compression stockings knee-high 20 mmHg] furosemide 40 mg PO QAM lactulose 15 mL PO DAILY lisinopril 20 mg PO DAILY 90 days oxycodone-acetaminophen 5-325 mg 1 tab PO Q12H PRN 30 days potassium chloride ER (Klor-Con M) 20 mEq PO QAM tadalafil 10 mg PO DAILY 90 days warfarin 5 mg See Protocol PO DAILY 90 days Nursing Note INR: 2.9 in therapeutic range Medications and supplements reviewed No changes in health, diet, medications, or supplements, Denies any signs and symptoms of bleeding or bruising or clotting. Bleeding, bruising, clotting discussed Nutritional guidance given Dose: 5MG DAILY F/U INR: 1 MONTH Patient verbalizes understanding of instructions given Anti-Coag Initial Assessment Social Hx Patient Tobacco Use Status: Never used Tobacco alcohol intake: current Alcohol intake frequency: holidays/special occasions only Cardiovascular Hx: HTN, Arrhythmias and Cardiomyopathy Musculoskeletal Hx: Other Blood Disorder Hx: Hyperlipidemia Hx: Prostate Neurological Hx: Stroke/TIA Cancer HX: Yes (prostate) Psych. Illness/Depression: No Questionnaires HAS-BLED Does the patient had uncontrolled Hypertension?: No Does the patient have renal disease?: No Does the patient have liver disease?: No Does the patient have a history of stroke?: Yes Has the patient had major bleeding or predisposition to bleeding?: Yes Does the patient have labile INRs?: Yes Is the patient over 65 years of age?: Yes Is the patient on medications that gives them a predisposition to bleeding?: Yes Does the patient use alcohol?: No HAS-BLED Score: 5 CHADSVASC Age: 66-74 Gender: Male Does the patient have a history of CHF?: No Does the patient have a history of Hypertension?: Yes Does the patient have a history of Stroke/TIA/Thromboembolism?: Yes Does the patient have a history of Vascular Disease (prior WI, PAD or aortic plaque)?: Yes Does the patient have a history of Diabetes?: No CHADS VACS Score: 5 Devan Prediction Score Rsk VTE Active Cancer: Yes Previous VTE, excluding superficial vein thrombosis: No Reduced mobility: No Already known Thrombophilic Condition: No With-in last month Trauma and/or Surgery: No Elderly 70 year or older: No Heart and/or Respiratory Failure: No Acute Myocardial infarction and/or Ischemic Stroke: Yes Acute Infection and/or Rheumatologic Disorder: No Obesity (BMI 30 or greater): Yes Ongoing Hormonal Treatment: No Score: 5 Devan Score less than 4; Low Risk of VTE Devan Score 4 or greater; High Risk of VTE Coding Level of Care Code Est Patient Level 1 Diagnoses Current use of anticoagulant therapy Z79.01 Assessment & Plan Assessment & Plan (1) Current use of anticoagulant therapy: Code(s): 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
== END 2024-01-05 10:32 | disposition home or self-care (01) ==
LOC: HO.ACS 10:19
PROVIDERS: PCP Internal Medicine; Visit Provider Internal Medicine
DX: Z79.01 Long term (current) use of anticoagulants (principal)

== ENCOUNTER → 2024-01-05 10:19 | Outpatient (BNVA) | payer OTHER, SELFPAY | PROVIDERS: PCP Internal Medicine; Visit Provider Internal Medicine | DX: Z95.2 Presence of prosthetic heart valve (principal); Z79.01 Long term (current) use of anticoagulants; Z51.81 Encounter for therapeutic drug level monitoring | CPT/HCPCS: 85610; 99211 ==

== ENCOUNTER 2024-01-15 11:26 | Outpatient (REF) | payer OTHER, SELFPAY ==
[2024-01-19 14:03] LABS: Testosterone, Total 177 ng/dL (250-1100)
== END 2024-01-15 11:27 | disposition home or self-care (01) ==
LOC: HO.LAB 11:26
PROVIDERS: PCP Internal Medicine; Visit Provider Urology
DX: C61 Malignant neoplasm of prostate (principal); C77.2 Secondary and unspecified malignant neoplasm of intra-abdominal lymph nodes; Z12.5 Encounter for screening for malignant neoplasm of prostate
CPT/HCPCS: 36415; 84153; 84403

== ENCOUNTER 2024-01-24 13:47 | Outpatient (AMB) | payer OTHER, SELFPAY ==
--- NOTE | 2024-01-24 14:00 | A.OFFVIS_ITS ---
Intake Visit Reasons: 3M PSA/Testosterone(set) Intake Note: Patient is Present for Follow Up PSA/Testosterone Urology Medication: Tadalafil Antibiotic Allergies: None Blood Thinners:Warfarin Recent lab results: 01/15/24 PSA: 7.10 Testo: 177 Appraisal Coordinator Required: No Accompanied by: Self / Same As Patient Allergies No Known Allergies [No Known Allergies*] Allergy (Verified 01/24/24 14:04) HPI Comments Details: Andres is a very pleasant male. He is a patient of Dr. Peterson. He is seen for the following urologic conditions - prostate cancer - laura recurrence - erectile dysfunction 01/22 PSA 7.1 T 177 Restart [facility] Bone density Three-month lab work 09/21 PSA 3.8 PET-CT - complete resolution of PSA May avid pelvic lymphadenopathy, new left rib activity PSMA avid right internal iliac and presacral lymphadenopathy present at several sites on the 07/27/2021 prior study are not present on the current study 11/20 - PSA <0.1, T1 23 Restart tadalafil 10 mg daily 01/20 mitral valve prolapse with replacement at [facility] - dislodged mitral clip into right ostia Prostate cancer: [facility] 4 + 4, group 4, XRT with hormones 2016 - recurrence 2021 pelvic laura with focal XRT and hormones 09/19 PET-CT scan shows positive laura disease along pelvic and retroperitoneal wall Radiation boost therapy with Dr. Walters at [facility] and 6m hormones Prostate cancer was diagnosed 03/2016 Dr Russo. Diagnosis was reached by needle biopsy, for elevated PSA, PSA at diagnosis 34. The Luis Enrique grade is 9/12 cores , 4+4 = 8 and , 4+3 = 7 > 40% in all cores. TNM Classification of Malignant Tumours (TNM) T2b. The D'Ankit (NCCN) risk category is High Risk (PSA > 20, Gl 8+, T3) - ALK nomagram pre treatment - 3% OCD, 95% FIDELINA, 70% LNI. Initial therapy included Primary treatment - bicalutamide, hormones 05/05/16 - GnRH , External beam radiation with short term hormonal ablation complete 10/15 - [facility] Recent labs included a PSA (prostate-specific antigen) 05/17 on bicalutamide only - 4.6, T 272 07/15 a PSA (prostate-specific antigen) 0.18, T 12 02/14 , a PSA (prostate-specific antigen) 0.22, , T 12 07/16 PSA 0.2, 10/16 PSA 0.15, 02/15 PSA 0.15 T 193 07/17 PSA 0.5 T 245, 9 PSA 1.2 T 260 05/20 0.5 T 240, 10/18 1.7 - 03/20 1.9 - 06/21 1.4, 12/19 2.4, 03/21 2.5, 07/20 4.3, 09/19 3.5, 05/23 <0.1 Recent imaging included 04/15 , a CT (computed tomography) scan - pelvic node 04/15 , a bone scan - negative 07/15 , a DEXA scan - normal. - 07/[address] with laura disease along pelvic basin to retroperitoneal wall PFSH Medical History Prostate cancer Seroma after procedure Peripheral vascular disease Poor circulation Leg edema Morbid obesity Opiate dependence AXEL (obstructive sleep apnea) Lumbar degenerative disc disease PAF (paroxysmal atrial fibrillation) Essential hypertension History of stroke Paroxysmal atrial flutter Ventricular tachyarrhythmia Hypertrophic cardiomyopathy Surgical History H/O colonoscopy Status post aorto-coronary artery bypass graft Status post mitral valve replacement Status post implantation of mitral valve leaflet clip History of cardiac pacemaker (~03/2014) History of cardiac catheterization Family History Father Diabetes Mother No problems noted. Social History Housing: Apartment Alcohol intake: current Alcohol intake frequency: holidays/special occasions only Alcohol type: hard liquor Patient Tobacco Use Status: Never used Tobacco e-Cigarette/Vaping Use: Never Used Second Hand Smoke Exposure: No service: No Current occupational status: unemployed Cognitive needs: Yes Hearing needs: No Vision needs: Yes Review of Systems Const Denies chills and Denies fever(s) Card Reports no additional complaints and Denies syncope Resp Denies cough GI Denies abdominal pain and Denies heartburn Reports as per HPI and Denies change in libido Neuro Denies syncope Psych Denies change in libido Endo Denies change in libido Physical Exam Const General: cooperative, healthy appearing, comfortable and no acute distress Orientation/consciousness: patient oriented x3 HEENT Face and sinus: Yes normal facial exam Mouth: moist mucous membranes Neck Neck: Yes normal visual inspection, Yes full ROM and Yes trachea midline Chest Chest palpation & inspection: normal inspection of the chest Resp Effort & Inspection: normal respiratory effort, able to speak in complete sentences and no respiratory distress GI Inspection: Yes normal to inspection Back/Spine/Pelvis Cervical Spine: normal cervical lordosis Thoracic/Lumbar Spine: thoracic and lumbar spine normal to inspection Skin General skin exam: no rashes or lesions noted Neuro General: patient oriented x3, gait normal, tone normal and moves all extremities Extrem General: Yes normal to inspection and Yes capillary refill normal Assessment & Plan Assessment & Plan (1) Osteoporosis due to androgen therapy: Code(s): M81.8 - Other osteoporosis without current pathological fracture; T38.7X5A - Adverse effect of androgens and anabolic congeners, initial encounter Category: Medical (2) Erectile dysfunction due to and not concurrent with radiation therapy: Code(s): N52.35 - Erectile dysfunction following radiation therapy Category: Medical (3) Prostate cancer metastatic to intraabdominal lymph node: Code(s): C61 - Malignant neoplasm of prostate; C77.2 - Secondary and unspecified malignant neoplasm of intra-abdominal lymph nodes Category: Medical Plan 2 week GnRH Three-month follow-up lab work Orders: Orders Prostate Specific Antigen 3 Months C61 - Malignant neoplasm of prostate, C77.2 - Secondary and unspecified malignant neoplasm of intra-abdominal lymph nodes Testosterone, Total 3 Months C61 - Malignant neoplasm of prostate, C77.2 - S econdary and unspecified malignant neoplasm of intra-abdominal lymph nodes NM bone scan whole body Today C61 - Malignant neoplasm of prostate, C79.51 - Secondary malignant neoplasm of bone, M81.8 - Other osteoporosis without current pathological fracture, T38.7X5A - Adverse effect of androgens and anabolic congeners, initial encounter Patient Instructions: Imaging studies, laboratory and physical exam results were discussed and reviewed in detail. No major barriers to patient understanding were identified. An opportunity to ask questions regarding the treatment plan was provided. All questions were answered. The patient expressed understanding and agreement with the above treatment plan. The patient is aware they should contact our office by phone for worsening of their current condition or the appearance of new urologic symptoms. Compliance is encouraged with any medications and followup testing that is ordered. It is a privilege to participate in the urologic care of your patient. If you have any questions or concerns regarding treatment for the above conditions, or other urologic issues, please do not hesitate to contact me. The office telephone contact is [phone]. This note is constructed using voice recognition software. While every effort has been made to ensure accuracy vp marketing services and skin errors may have been included. Yours sincerely, Dr Jian Russo MD, [facility] - Urology Providers of Expert, Compassionate Care for the Genitourinary System Coding Level of Care Code Est Pt Level 3 (01017) Diagnoses Osteoporosis due to androgen therapy M81.8; T38.7X5A Erectile dysfunction due to and not concurrent with radiation therapy N52.35 Prostate cancer metastatic to intraabdominal lymph node C61; C77.2
== END 2024-01-24 14:36 | disposition home or self-care (01) ==
PROVIDERS: PCP Internal Medicine; Visit Provider Urology
DX: M81.8 Other osteoporosis without current pathological fracture (principal); T38.7X5A Adverse effect of androgens and anabolic congeners, initial encounter; N52.35 Erectile dysfunction following radiation therapy; C61 Malignant neoplasm of prostate; C77.2 Secondary and unspecified malignant neoplasm of intra-abdominal lymph nodes
CPT/HCPCS: 99213

== ENCOUNTER → 2024-01-24 13:47 | Outpatient (BNVA) | payer OTHER, SELFPAY | PROVIDERS: PCP Internal Medicine; Visit Provider Urology | DX: C61 Malignant neoplasm of prostate (principal); C77.2 Secondary and unspecified malignant neoplasm of intra-abdominal lymph nodes; C79.51 Secondary malignant neoplasm of bone; N52.35 Erectile dysfunction following radiation therapy; M81.8 Other osteoporosis without current pathological fracture; T38.7X5A Adverse effect of androgens and anabolic congeners, initial encounter; X58.XXXA Exposure to other specified factors, initial encounter; Y92.9 Unspecified place or not applicable; Y93.9 Activity, unspecified; Y99.9 Unspecified external cause status | CPT/HCPCS: 99212 ==

== ENCOUNTER 2024-02-09 10:40 | Outpatient (AMB) | payer OTHER, SELFPAY ==
[2024-02-09 10:57] LABS: Prothrombin Time Whole Bld POC 54.2 sec (11.1-13.5); ~PT, ~INR - Anti Coag Clinic 4.5 (0.9-1.1)
--- NOTE | 2024-02-09 11:01 | MHC.OFFVISCO ---
Intake Intake Visit Reasons: Anticoagulation Allergies No Known Allergies [No Known Allergies*] Allergy (Verified 02/09/24 10:52) Medication List - Last Reconciled 02/09/24 by Brissa Daniels RN acetaminophen 650 mg PO Q6H PRN atenolol 50 mg PO DAILY atorvastatin 40 mg PO BEDTIME [compression stockings knee-high 20 mmHg] furosemide 40 mg PO QAM lactulose 15 mL PO DAILY lisinopril 20 mg PO DAILY 90 days oxycodone-acetaminophen 5-325 mg 1 tab PO Q12H PRN 30 days potassium chloride ER (Klor-Con M) 20 mEq PO QAM tadalafil 10 mg PO DAILY 90 days warfarin 5 mg See Protocol PO DAILY 90 days Nursing Note INR 4.5?out of therapeutic range of 2.5-3.5 Medications and supplements reviewed Patient status: well Medications or supplements: no changes Diet: usual diet for pt Denies any signs and symptoms of bleeding or clotting or unusual bruising Bleeding, bruising, clotting discussed Nutritional guidance given: to have greens today Dose: hold today's dose of 5mg then resume 5mg daily F/U INR Date : 2 weeks?? Patient verbalizing understanding of instructions given. Anti-Coag Initial Assessment Social Hx Patient Tobacco Use Status: Never used Tobacco alcohol intake: current Alcohol intake frequency: holidays/special occasions only Cardiovascular Hx: HTN, Arrhythmias and Cardiomyopathy Musculoskeletal Hx: Other Blood Disorder Hx: Hyperlipidemia Hx: Prostate Neurological Hx: Stroke/TIA Cancer HX: Yes (prostate) Psych. 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
== END 2024-02-09 11:03 | disposition home or self-care (01) ==
LOC: HO.ACS 10:40
PROVIDERS: PCP Internal Medicine; Visit Provider Internal Medicine
DX: Z79.01 Long term (current) use of anticoagulants (principal)

== ENCOUNTER → 2024-02-09 10:40 | Outpatient (BNVA) | payer OTHER, SELFPAY | PROVIDERS: PCP Internal Medicine; Visit Provider Internal Medicine | DX: Z95.2 Presence of prosthetic heart valve (principal); Z79.01 Long term (current) use of anticoagulants; Z51.81 Encounter for therapeutic drug level monitoring | CPT/HCPCS: 85610; 99211 ==

== ENCOUNTER 2024-02-14 13:45 | Outpatient (AMB) | payer OTHER, SELFPAY ==
--- NOTE | 2024-02-14 14:32 | AM.OFFVISNUR ---
Intake Visit Reasons: GnRH(PA Set) Allergies No Known Allergies [No Known Allergies*] Allergy (Verified 02/09/24 10:52) Nursing Note here for eligard injection. confirmed with Dr. Karan prajapati to administer eligard. 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 Comments: patient consented for eligard and tolerated well. Assessment & Plan Assessment & Plan Orders: Orders AMB Leuprolide Injection - Practice Supplied Today C61 - Malignant neoplasm of prostate, C77.2 - Secondary and unspecified malignant neoplasm of intra-abdominal lymph nodes Medications: New Eligard (6 month) (leuprolide acetate (6 month)) 45 mg subcut ONCE 1 ea 0RF NS C61 - Malignant neoplasm of prostate, C77.2 - Secondary and unspecified malignant neoplasm of intra-abdominal lymph nodes
== END 2024-02-14 14:32 | disposition home or self-care (01) ==
PROVIDERS: PCP Internal Medicine; Visit Provider Urology
DX: C61 Malignant neoplasm of prostate (principal); C77.2 Secondary and unspecified malignant neoplasm of intra-abdominal lymph nodes

== ENCOUNTER → 2024-02-14 13:45 | Outpatient (BNVA) | payer OTHER, SELFPAY | PROVIDERS: PCP Internal Medicine; Visit Provider Urology | DX: C61 Malignant neoplasm of prostate (principal); C77.2 Secondary and unspecified malignant neoplasm of intra-abdominal lymph nodes | CPT/HCPCS: 96402; J9217 ==

== ENCOUNTER 2024-02-23 10:05 | Outpatient (AMB) | payer OTHER, SELFPAY ==
[2024-02-23 10:17] LABS: Prothrombin Time Whole Bld POC 25.7 sec (11.1-13.5); ~PT, ~INR - Anti Coag Clinic 2.1 (0.9-1.1)
--- NOTE | 2024-02-23 10:21 | MHC.OFFVISCO ---
Intake Intake Visit Reasons: Anticoagulation Allergies No Known Allergies [No Known Allergies*] Allergy (Verified 02/23/24 10:12) Medication List - Last Reconciled 02/23/24 by Corrie Flores RN acetaminophen 650 mg PO Q6H PRN atenolol 50 mg PO DAILY atorvastatin 40 mg PO BEDTIME [compression stockings knee-high 20 mmHg] furosemide 40 mg PO QAM lactulose 15 mL PO DAILY lisinopril 20 mg PO DAILY 90 days oxycodone-acetaminophen 5-325 mg 1 tab PO Q12H PRN 30 days potassium chloride ER (Klor-Con M) 20 mEq PO QAM tadalafil 10 mg PO DAILY 90 days warfarin 5 mg See Protocol PO DAILY 90 days Nursing Note NO CP,SOB,DIET/MED CHANGES,FALLS OR SX OF BLEEDING. BOOST TO 7.5MGM TODAY THEN RESUME 5MGM DAILY AND FOLLOW-UP IN 2 WEEKS GOOD UNDERSTANDING OF DOSING INSTR. Anti-Coag Initial Assessment Social Hx Patient Tobacco Use Status: Never used Tobacco alcohol intake: current Alcohol intake frequency: holidays/special occasions only Cardiovascular Hx: HTN, Arrhythmias and Cardiomyopathy Musculoskeletal Hx: Other Blood Disorder Hx: Hyperlipidemia Hx: Prostate Neurological Hx: Stroke/TIA Cancer HX: Yes (prostate) Psych. 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
== END 2024-02-23 10:23 | disposition home or self-care (01) ==
LOC: HO.ACS 10:05
PROVIDERS: PCP Internal Medicine; Visit Provider Internal Medicine
DX: Z79.01 Long term (current) use of anticoagulants (principal)

== ENCOUNTER → 2024-02-23 10:05 | Outpatient (BNVA) | payer OTHER, SELFPAY | PROVIDERS: PCP Internal Medicine; Visit Provider Internal Medicine | DX: Z95.2 Presence of prosthetic heart valve (principal); Z79.01 Long term (current) use of anticoagulants; Z51.81 Encounter for therapeutic drug level monitoring | CPT/HCPCS: 85610; 99211 ==

== ENCOUNTER 2024-03-08 10:20 | Outpatient (AMB) | payer OTHER, SELFPAY ==
[2024-03-08 10:44] LABS: Prothrombin Time Whole Bld POC 29.6 sec (11.1-13.5); ~PT, ~INR - Anti Coag Clinic 2.5 (0.9-1.1)
--- NOTE | 2024-03-08 10:48 | MHC.OFFVISCO ---
Intake Intake Visit Reasons: Anticoagulation Allergies No Known Allergies [No Known Allergies*] Allergy (Verified 03/08/24 10:40) Medication List - Last Reconciled 03/08/24 by Brissa Daniels RN acetaminophen 650 mg PO Q6H PRN atenolol 50 mg PO DAILY atorvastatin 40 mg PO BEDTIME [compression stockings knee-high 20 mmHg] furosemide 40 mg PO QAM lactulose 15 mL PO DAILY lisinopril 20 mg PO DAILY 90 days oxycodone-acetaminophen 5-325 mg 1 tab PO Q12H PRN 30 days potassium chloride ER (Klor-Con M) 20 mEq PO QAM tadalafil 10 mg PO DAILY 90 days warfarin 5 mg See Protocol PO DAILY 90 days Nursing Note INR: 2.5 in therapeutic range of 2.5-3.0 Medications and supplements reviewed No changes in health, diet, medications, or supplements, Denies any signs and symptoms of bleeding or bruising or clotting. Bleeding, bruising, clotting discussed Nutritional guidance given Dose: 5mg X 6 days and 7.5mg X 1 day F/U INR: 2 weeks Patient verbalizes understanding of instructions given Anti-Coag Initial Assessment Social Hx Patient Tobacco Use Status: Never used Tobacco alcohol intake: current Alcohol intake frequency: holidays/special occasions only Cardiovascular Hx: HTN, Arrhythmias and Cardiomyopathy Musculoskeletal Hx: Other Blood Disorder Hx: Hyperlipidemia Hx: Prostate Neurological Hx: Stroke/TIA Cancer HX: Yes (prostate) Psych. Illness/Depression: No Coding Level of Care Code Est Patient Level 1 Diagnoses Current use of anticoagulant therapy Z79.01 Assessment & Plan Assessment & Plan (1) Current use of anticoagulant therapy: Code(s): Z79.01 - alf (current) use of anticoagulants Category: Medical
== END 2024-03-08 10:55 | disposition home or self-care (01) ==
LOC: HO.ACS 10:21
PROVIDERS: PCP Internal Medicine; Visit Provider Internal Medicine
DX: Z79.01 Long term (current) use of anticoagulants (principal)

== ENCOUNTER → 2024-03-08 10:20 | Outpatient (BNVA) | payer OTHER, SELFPAY | PROVIDERS: PCP Internal Medicine; Visit Provider Internal Medicine | DX: Z95.2 Presence of prosthetic heart valve (principal); Z79.01 Long term (current) use of anticoagulants; Z51.81 Encounter for therapeutic drug level monitoring | CPT/HCPCS: 85610; 99211 ==

== ENCOUNTER 2024-03-22 09:59 | Outpatient (AMB) | payer OTHER, SELFPAY ==
[2024-03-22 10:10] LABS: Prothrombin Time Whole Bld POC 36.7 sec (11.1-13.5); ~PT, ~INR - Anti Coag Clinic 3.1 (0.9-1.1)
--- NOTE | 2024-03-22 10:14 | MHC.OFFVISCO ---
Intake Intake Visit Reasons: Anticoagulation Allergies No Known Allergies [No Known Allergies*] Allergy (Verified 03/22/24 10:04) Medication List - Last Reconciled 03/22/24 by Hanna Magaña RN acetaminophen 650 mg PO Q6H PRN atenolol 50 mg PO DAILY atorvastatin 40 mg PO BEDTIME [compression stockings knee-high 20 mmHg] furosemide 40 mg PO QAM lactulose 15 mL PO DAILY lisinopril 20 mg PO DAILY 90 days oxycodone-acetaminophen 5-325 mg 1 tab PO Q12H PRN 30 days potassium chloride ER (Klor-Con M) 20 mEq PO QAM tadalafil 10 mg PO DAILY 90 days warfarin 5 mg See Protocol PO DAILY 90 days Nursing Note INR: 3.1 Almost therapeutic range 2.5-3.0 Medications and supplements reviewed No changes in health, diet, medications, or supplements, Denies any signs and symptoms of bleeding or bruising or clotting. Bleeding, bruising, clotting discussed Nutritional guidance given - can resume weekly greens - review food list weekly and during the holidays Dose: keep same dose 7.5mg x 1 day/ 5mg x 6 days F/U INR: 2 weeks per pt request Patient verbalizes understanding of instructions given Anti-Coag Initial Assessment Social Hx Patient Tobacco Use Status: Never used Tobacco alcohol intake: current Alcohol intake frequency: holidays/special occasions only Cardiovascular Hx: HTN, Arrhythmias and Cardiomyopathy Musculoskeletal Hx: Other Blood Disorder Hx: Hyperlipidemia Hx: Prostate Neurological Hx: Stroke/TIA Cancer HX: Yes (prostate) Psych. 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
== END 2024-03-22 10:17 | disposition home or self-care (01) ==
LOC: HO.ACS 09:59
PROVIDERS: PCP Internal Medicine; Visit Provider Internal Medicine
DX: Z79.01 Long term (current) use of anticoagulants (principal)

== ENCOUNTER → 2024-03-22 09:59 | Outpatient (BNVA) | payer OTHER, SELFPAY | PROVIDERS: PCP Internal Medicine; Visit Provider Internal Medicine | DX: Z95.2 Presence of prosthetic heart valve (principal); Z79.01 Long term (current) use of anticoagulants; Z51.81 Encounter for therapeutic drug level monitoring | CPT/HCPCS: 85610; 99211 ==

== ENCOUNTER 2024-04-05 09:26 | Outpatient (REF) | payer OTHER, SELFPAY ==
[2024-04-05 11:42] LABS: Prostate Specific Antigen 7.38 ng/mL (<0.05-4.0)
--- OUTSIDE RECORDS SUMMARY | 2024-04-10 06:57 | XMS_ITS | Data Portability ---
Author Organization [place] [facility] Address [address] [place] [address] Care Team Providers Care Multicut Line Operator Name Role Phone SANGITA REID Primary Care Provider [phone] Assessment Encounter Date Assessment Date Assessment LastModified by Organization Details LastModified Time 01/18/2022 01/18/2022 66 YO M patient establishing care with . On 12/14 he had open heart surgery at [facility] the transferred to [facility] facility. His sternotomy surgical incision has healed well. However he has a left medial lower leg surgical incision which is draining clear fluid. He was seen by his regular strategic alliances manager located in [place] Ramirez who did not assess his leg wound because it wasn't draining at the time . Clear drainage of surgical incision began yesterday at 4 p.m. [facility] contacted for assessment. It was a scab and then it came off . VSS Exam: Very pleasant, elderly male sitting in recliner conversing with staff and answering all questions appropriately. No acute distress, neurologically intact. Respirations even and nonlabored, bilateral breath sounds clear to auscultation. Heart RRR, ? click heard best left sternal border (has history of mitral valve regurgitation). Skin: Left lower extremity/medial region superior to popliteal region/vastus medialis surgical incision approximately 1.25 cm in length and 1.0 cm in depth. No edema and color wnl. Test: None DDx:Cellulitis, skin abrasion, contusion, Plan: -Area assessed with active clear, watery, discharge from surgical incision. Skin color and temp wnl. No sign or symptom of infection. Area covered with abd pad and held in place with Kerlix. Spoke to Jasbir ASCENCIO, who originally contacted , with detail on assessment and no need for stitches/abx. The patient is advised to make an appt with PCP in 3-5 days to discuss ongoing symptoms/ further management. The patient is also advised to go to the ED immediately for any worsening symptoms. The patient understood and agreed with this plan. The patient was given discharge instructions and all questions were answered prior to DH team departure. Time On Scene with Patient: 01:11:41 [email or web address] Not available 01/18/2022 14:37:44 Plan of Treatment Reminders Order Date Submit Date Provider Last Modified By Organization Details Last Modified Time Details Appointments None record ed. Lab None record ed. Referral None record ed. Procedures None record ed. Surgeries None record ed. Imaging None record ed. Medication Orders None record ed. Patient TargetsNo targets recorded. Patient Instructions Encounter Date Encounter Id Patient Instructions Last Modified By Organization Details Last Modified Time 01/18/2022 [id number] Thank you for yo ur visit with [facility] today. You were seen today for treatment of a wound. Please seek immediate medical attention if you develop increased pain, redness, or swelling of your wound. Also, you should be evaluated if the wound becomes warm to the touch, or if there is a cloudy, yellow-brown discharge from the wound. There is always the possibility of a hidden tendon injury or foreign object in the wound. If you have problems moving your arm or leg, or if you see red streaks up the arm or leg, seek immediate medical attention. If you develop any new or worsening symptoms and need after hours care, please go to nearest ER and/or call 911. If you have additional concerns or develop a change in your condition between 8am-10pm, please call [facility] at [phone] to help navigate your care. [email or web address] [id number] Not available 01/18/2022 13:18:22 Reason for Referral None Reported. Procedures Surgical History Date Name Laterality Status Provider Name and Address Organization Details Recorded Time open heart surgery completed October FREDO Engel [address], [place], [address], [place] [facility] 01/18/2022 13:26:42 Imaging Results None recorded. Procedure Notes None recorded. Medical Equipment None Reported. Allergies No known drug allergies Medications Name Sig Start Date Stop Date Status Note LastModified by Organization Details LastModified Time furosemide 40 mg tablet TOME MARY TABLETA TODOS LOS D EN LA MA SANGITA active Not Available Not Available No t Available atorvastati n 40 mg tablet TOME MARY TABLETA D AL ACOSTARSE active Not Available Not Available No t Available bicalutamid e 50 mg tablet TOME MARY TABLETA D active Not Available Not Available No t Available acetaminoph en 325 mg tablet TAKE 2 TABLETS (650 MG) BY MOUTH EVERY 6 (SIX) HOURS IF NEEDED FOR PAIN SCORE 1-3 FOR UP TO 10 DAYS. active Not Available Not Available No t Available atenolol 100 mg tablet TAKE 1 TABLET BY MOUTH DAILY AND TAKE AN ADDITIONA L 1/2 TABLET DAILY IF NEEDED FOR PALPITATI ON 01/18 completed Not Available Not Available Not Available senna 8.6 mg tablet TAKE 1 TABLET (8.6 MG) BY MOUTH IF NEEDED IN THE MORNING AND AT BEDTIME FOR CONSTIPAT ION. active Not Available Not Available No t Available melatonin 3 mg tablet TAKE 1 TABLET (3 MG) BY MOUTH IF NEEDED AT BEDTIME FOR SLEEP. active Not Available Not Available No t Available aspirin 81 mg tablet,milagro yed release TOME MARY TABLETA D active Not Available Not Available No t Available warfarin 3 mg tablet TOME MARY TABLETA S LOS D 01/18 completed Not Available Not Available Not Available verapamil 120 mg tablet TOME MARY TABLETA ROSALIO VECES AL D A 01/18 completed Not Available Not Available Not Available oxycodone-a cetaminophe n 5 mg-325 mg tablet 1 TAB ORALLY 2 TIMES A DAY NEEDED FOR PAIN FOR 30 DAYS 01/18 completed Not Available Not Available Not Available potassium chloride 20 mEq oral packet Take 1 packet 4 times a day by oral route. active Not Available Not Available No t Available pantoprazol e 40 mg tablet,milgaro yed release TAKE 1 TABLET (40 MG) BY MOUTH BEFORE BREAKFAST . DO NOT CRUSH, CHEW, OR SPLIT. active Not Available Not Available No t Available ferrous sulfate 325 mg (65 mg iron) tablet TAKE 1 TABLET (325 MG) BY MOUTH WITH BREAKFAST . active Not Available Not Available No t Available warfarin 5 mg tablet Take 1 tablet every day by oral route. active Not Available Not Available No t Available docusate sodium 100 mg capsule TAKE 1 CAPSULE (100 MG) BY MOUTH IF NEEDED IN THE MORNING AND AT BEDTIME FOR CONSTIPAT ION. active Not Available Not Available No t Available hydrochloro thiazide 25 mg tablet TAKE 1 TABLET BY MOUTH DAILY FOR 90 DAYS 01/18 completed Not Available Not Available Not Available metoprolol succinate ER 25 mg tablet,exte nded release 24 hr TAKE 1 & 1/2 TABLETS (37.5 MG) BY MOUTH IN THE MORNING. DO NOT CRUSH OR CHEW. active Not Available Not Available No t Available warfarin 1 mg tablet TOME MARY TABLETA TODOS LOS D 01/18 completed Not Available Not Available Not Available atenolol 50 mg tablet TOME MARY TABLETA TODOS LOS D CUANDO SEA NECESARIO FOR PALPITATI ONS 1 EXTRA TAB DAILY 01/18 completed Not Available Not Available Not Available finasteride 5 mg tablet TOME MARY TABLETA TODOS LOS D active Not Available Not Available No t Available Klor-Con M20 mEq tablet,exte nded release TAKE 1 TABLET (20 MEQ) BY MOUTH IN THE MORNING. DO NOT CRUSH OR CHEW. 01/18 completed Not Available Not Available Not Available lactulose 10 gram/15 mL oral solution TAKE 15 ML POR V A ORAL DAILY active Not Available Not Available No t Available ferrous sulfate 01/18 completed Not Available Not Available Not Available Eliquis 5 mg tablet TOME MARY TABLETA POR V A ORAL DOS VECES AL D A FOR 90 DAYS. active Not Available Not Available No t Available ProAir RespiClick 90 mcg/actuati on breath activated INHALE 2 PUFFS EVERY 4-6 HOURS NEEDED FOR SHORTNESS OF BREATH OR WHEEZING active Not Available Not Available No t Available albuterol sulf 90 mcg/actuati on breath activated powder inhaler,sen sor Inhale 2 puffs every 4 hours by inhalatio n route. 01/18 completed Not Available Not Available Not Available Vitals Date Recorded Heart rate Oxygen saturation Oxygen saturation in Arterial blood by Pulse oximetry Body temperature Respiratory rate Systolic blood pressure Diastolic blood pressure Provider Name and Address Organization Details Last Updated DateTime 2 78 /min 98 % 98 % 98 [degF] 16 /min 130 mm[Hg] 74 mm[Hg] Not Available [facility] 13:16:54 Social History Question Answer Notes LastModified by Organizat ion Details LastModified Time Tobacco Smoking Status Never Smoker October FREDO Engel [address], [place], [address], [place] [facility] 01/18/2022 13:24:50 Do You Have An Advance Directive? Yes [email or web address] Information not available 01/18/2022 What Is Your Level Of Alcohol Consumption? Occasional [email or web address] Information not available 01/18/2022 Is Blood Transfusion Acceptable In An Emergency? Yes [email or web address] Information not available 01/18/2022 What Is Your Code Status? Full Code [email or web address] Information not available 01/18/2022 Within The Past 12 Months, Has It Happened That The Food You Bought Just Didn't Last And You Didn't Have Money To Get More. No Information not available 01/18/2022 Within The Past 12 Months, Have You Worried That Your Food Would Run Out Before You Got Money To Buy More. No [email or web address] Information not available 01/18/2022 Fall Risk: Do You Feel Unsteady When Standing Or Walking? No [email or web address] Information not available 01/18/2022 We Know That How And When People Interact With Friends And Family Can Be Very Different From Person To Person. How Often Do You Have The Opportunity To See Or Talk To People That You Care About And Feel Close To? (Ex: Talking To Friends On The Phone Or Visiting Friends Or Family Or Going To [employer] Or Club Meetings) Choose Not To Answer This Question [email or web address] Information not available 01/18/2022 Excessive Alcohol Or Drug Use No [email or web address] Information not available 01/18/2022 Does This Patient Have A PCP? Yes [email or web address] Information not available 01/18/2022 Is This Patient In Hospice? No [email or web address] Information not available 01/18/2022 We Know From Many Of Our Patients That Covering All Of Their Costs Can Be Difficult At Times. This Can Cause Stress And Impact Health. In The Past Year, Have You Been Unable To Get Any Of The Following When It Was Really Needed? No [email or web address] Information not available 01/18/2022 What Is Your Housing Situation Today? I Have Housing [email or web address] Information not available 01/18/2022 Would You Like Help Connecting To Resources? None [email or web address] Information not available 01/18/2022 Do You Use Any Illicit Or Recreational Drugs? No [email or web address] Information not available 01/18/2022 Sex: Unknown Functional Status None recorded. Mental Status None recorded. Family History Nothing Reported. Medical History Condition Response Diabetes N Coronary Artery Disease Y CHF N Parkinson's Disease N Cancer Y Dementia N Stroke N Asthma Y COPD N Depression N Hypothyroidism N High Cholesterol Y Rheumatoid Arthritis N Pulmonary Embolism N Hypertension Y Osteoporosis N A-fib N Kidney Disease N Past Encounters Encounter ID Performer Location Encounter Start Date Encounter Closed Date Diagnosis/Indication Diagnosis SNOMED-CT Code Diagnosis ICD10 Code [id number] October FREDO Engel [facility] [address] [place] [address] 01/18/2022 13:08:34 01/19/2022 07:50:40 Surgical incision wound of skin 2841982604 00 R23.8 Health Concerns Section Related Observation LastModified by Organization Detai ls LastModified Time None Recorded Concern Status LastModified by Organization Details LastModified Time None Recorded Advance Directives Directive Y: Payers Encounter Date Sequence Insurance Name Policy Number Policy Ma Covered Member ID Ma Member ID Guarantor Name 01/18/2022 1 [place] [employer] Andres Weiss [id number] Andres Weiss 01/18/2022 2 [place] [facility] Andres Weiss [id number] Andres Weiss Notes Date Note Type Note Provider Name and Address Organization Details Recorded Time 01/18/2022 [email or web address] 66 YO M patient establishing care with . On 12/14 he had open heart surgery at [facility] the transferred to [facility] facility. His sternotomy surgical incision has healed well. However he has a left medial lower leg surgical incision which is draining clear fluid. He was seen by his regular strategic alliances manager located in [place] [address] Ramirez who did not assess his leg wound because it wasn't draining at the time . Clear drainage of surgical incision began yesterday at 4 p.m. [facility] contacted for assessment. It was a scab and then it came off . October FREDO Engel [address] [place], [address], [place] [facility] 01/30/2022 10:04:41
[2024-04-11 13:13] LABS: Testosterone, Total 11 ng/dL (250-1100)
== END 2024-04-05 09:27 | disposition home or self-care (01) ==
LOC: HO.LAB 09:26
PROVIDERS: PCP Internal Medicine; Visit Provider Urology
DX: C61 Malignant neoplasm of prostate (principal); C77.2 Secondary and unspecified malignant neoplasm of intra-abdominal lymph nodes; Z12.5 Encounter for screening for malignant neoplasm of prostate; Z79.01 Long term (current) use of anticoagulants
CPT/HCPCS: 36415; 84153; 84403; 85610; 99211

== ENCOUNTER 2024-04-05 10:03 | Outpatient (AMB) | payer OTHER, SELFPAY ==
--- NOTE | 2024-04-05 10:13 | MHC.OFFVISCO ---
Intake Intake Visit Reasons: Anticoagulation Allergies No Known Allergies [No Known Allergies*] Allergy (Verified 04/05/24 10:04) Medication List - Last Reconciled 04/05/24 by Hanna Magaña RN acetaminophen 650 mg PO Q6H PRN atenolol 100 mg PO DAILY 90 days atorvastatin 40 mg PO BEDTIME [compression stockings knee-high 20 mmHg] furosemide 40 mg PO QAM lactulose 15 mL PO DAILY lisinopril 20 mg PO DAILY 90 days oxycodone-acetaminophen 5-325 mg 1 tab PO Q12H PRN 30 days potassium chloride ER (Klor-Con M) 20 mEq PO QAM tadalafil 10 mg PO DAILY 90 days warfarin 5 mg See Protocol PO DAILY 90 days Nursing Note INR: 3.almot in therapeutic range 2.5-3.0 - s/p thanksgiving Medications and supplements reviewed No changes in health, diet, medications, or supplements, Denies any signs and symptoms of bleeding or bruising or clotting. Bleeding, bruising, clotting discussed Nutritional guidance given Dose: keep same 7.5mg x 1 day/ 5mg x 6 days F/U INR: 3 weeks per pt request after [place] Patient verbalizes understanding of instructions given Anti-Coag Initial Assessment Social Hx Patient Tobacco Use Status: Never used Tobacco alcohol intake: current Alcohol intake frequency: holidays/special occasions only Cardiovascular Hx: HTN, Arrhythmias and Cardiomyopathy Musculoskeletal Hx: Other Blood Disorder Hx: Hyperlipidemia Hx: Prostate Neurological Hx: Stroke/TIA Cancer HX: Yes (prostate) Psych. Illness/Depression: No Coding Level of Care Code Est Patient Level 1 Diagnoses Current use of anticoagulant therapy Z79.01 Results AMB INR Fingerstick AMB INR Fingerstick 3.1 Last Edit by Hanna Magaña RN on 04/05/24 10:11 MANUAL ENTRY Assessment & Plan Assessment & Plan (1) Current use of anticoagulant therapy: Code(s): Z79.01 - prison (current) use of anticoagulants Category: Medical
[2024-04-05 10:18] LABS: Prothrombin Time Whole Bld POC 36.7 sec (11.1-13.5); ~PT, ~INR - Anti Coag Clinic 3.1 (0.9-1.1)
== END 2024-04-05 10:15 | disposition home or self-care (01) ==
LOC: HO.ACS 10:03
PROVIDERS: PCP Internal Medicine; Visit Provider Internal Medicine
DX: Z79.01 Long term (current) use of anticoagulants (principal)

== ENCOUNTER → 2024-04-10 09:40 | Outpatient (REF) | payer OTHER, SELFPAY | LOC: HO.NUCMED 09:40 | PROVIDERS: PCP Internal Medicine; Visit Provider Urology | DX: C61 Malignant neoplasm of prostate (principal); C79.51 Secondary malignant neoplasm of bone; M81.8 Other osteoporosis without current pathological fracture; T38.7X5A Adverse effect of androgens and anabolic congeners, initial encounter | CPT/HCPCS: 78306; A9503 ==

== ENCOUNTER 2024-04-11 13:14 | Outpatient (AMB) | payer OTHER, SELFPAY ==
--- OUTSIDE RECORDS SUMMARY | 2024-04-11 13:16 | XMS_ITS | Data Portability ---
Author Organization [place] [facility] Address [address] [place] [address] Care Team Providers Care Rougher Merchant Mill Name Role Phone SANGITA REID Primary Care Provider Assessment Encounter Date Assessment Date Assessment LastModified by Organization Details LastModified Time 01/18/2022 01/18/2022 66 YO M patient establishing care with . On 12/14 he had open heart surgery at [facility] the transferred to [facility] facility. His sternotomy surgical incision has healed well. However he has a left medial lower leg surgical incision which is draining clear fluid. He was seen by his regular custom car builder located in [place] [address] Ramirez who did not assess his [...] departure. Time On Scene with Patient: 01:11:41 [email or web address] Not available 01/18/2022 14:37:44 Plan of Treatment [...] By Organization Details Last Modified Time 01/18/2022 [id number] Thank you for yo ur visit with [facility] today. You were seen today for treatment [...] in your condition between 8am-10pm, please call [facility] at [phone] to help navigate your care. [email or web address] 3 Not available 01/18/2022 13:18:22 Reason for Referral None Reported. Procedures Surgical History Date Name Laterality Status Provider Name and Address Organization Details Recorded Time open heart surgery completed October FREDO Engel [address], [place], [address], [place] [facility] 01/18/2022 13:26:42 Imaging Results [...] No t Available pantoprazol e 40 mg tablet,milagro yed release TAKE 1 TABLET (40 MG) [...] Smoker October FREDO Engel [address], [place], [address], [place] [facility] 01/18/2022 13:24:50 Do You Have An Advance Directive? Yes Information not available 01/18/2022 What Is Your Level Of Alcohol Consumption? Occasional [email or web address] Information not available 01/18/2022 Is Blood Transfusion Acceptable In An Emergency? Yes [id number] Information not available 01/18/2022 What Is Your Code Status? Full Code [email or web address] Information not available 01/18/2022 Within The Past 12 Months, Has It Happened That The Food You Bought Just Didn't Last And You Didn't Have Money To Get More. No [email or web address] Information not available 01/18/2022 Within The Past 12 Months, Have You Worried That Your Food Would Run Out Before You Got Money To Buy More. No [email or web address] Information not available 01/18/2022 Fall Risk: Do You Feel Unsteady When Standing Or Walking? No [email or web address] Information not available 01/18/2022 We Know That How And When People Interact With Friends And Family Can Be Very Different From Person To Person. How Often Do You Have The Opportunity To See Or Talk To People That You Care About And Feel Close To? (Ex: Talking To Friends On The Phone Or Visiting Friends Or Family Or Going To [employer] Or Club Meetings) Choose Not To Answer This Question [email or web address] Information not available 01/18/2022 Excessive Alcohol Or Drug Use No [id number] Information not available 01/18/2022 Does This Patient Have A PCP? Yes [email or web address] Information not available 01/18/2022 Is This Patient In Hospice? No [email or web address] Information not available 01/18/2022 We Know From Many Of Our Patients That Covering All Of Their Costs Can Be Difficult At Times. This Can Cause Stress And Impact Health. In The Past Year, Have You Been Unable To Get Any Of The Following When It Was Really Needed? No [email or web address] Information not available 01/18/2022 What Is Your Housing Situation Today? I Have Housing [email or web address] Information not available 01/18/2022 Would You Like Help Connecting To Resources? None [email or web address] Information not available 01/18/2022 Do You Use Any Illicit Or Recreational Drugs? No [email or web address] Information not available 01/18/2022 Sex: Unknown Functional Status None recorded. Mental Status None recorded. Family History Nothing Reported. Medical History Condition Response Diabetes N Coronary Artery Disease Y CHF N Parkinson's Disease N Cancer Y Stroke N Dementia N Hypothyroidism N Asthma Y COPD N Depression N High Cholesterol Y Rheumatoid Arthritis N Pulmonary Embolism N Hypertension Y Osteoporosis N A-fib N Kidney Disease N Past Encounters Encounter ID Performer Location Encounter Start Date Encounter Closed Date Diagnosis/Indication Diagnosis SNOMED-CT Code Diagnosis ICD10 Code [id number] October FREDO Engel [facility] [address] [place] [address] 01/18/2022 13:08:34 01/19/2022 07:50:40 Surgical incision wound of skin 2740160889 00 R23.8 Health Concerns Section Related Observation LastModified by Organization Detai ls LastModified Time None Recorded Concern Status LastModified by Organization Details LastModified Time None Recorded Advance Directives Directive Y: Payers Encounter Date Sequence Insurance Name Policy Number Policy Ma Covered Member ID Ma Member ID Guarantor Name 01/18/2022 1 [place] [employer] Andres Weiss [id number] Andres Weiss 01/18/2022 2 [place] [facility] Andres Weiss [id number] Andres Weiss Notes Date Note Type Note Provider Name and Address Organization Details Recorded Time 01/18/2022 [email or web address] 66 YO M patient establishing care with . On 12/14 he had open heart surgery at [facility] the transferred to [facility] facility. His sternotomy surgical incision has healed well. However he has a left medial lower leg surgical incision which is draining clear fluid. He was seen by his regular custom car builder located in [place] Dr. Ramirez who did not assess his leg wound because it wasn't draining at the time . Clear drainage of surgical incision began yesterday at 4 p.m. [facility] contacted for assessment. It was a scab and then it came off . October FREDO Engel [address] [place], [address], [place] [facility] 01/30/2022 10:04:41
[2024-04-11 13:25] VITALS: BP 132/78; PULSE 80; O2SAT 98; BMI 41.9
--- NOTE | 2024-04-11 13:25 | A.OFFVIS_ITS ---
Vital Signs 04/11/24 13:25 Height 6 ft 1 in Weight 317 lb 7.45 oz BMI 41.9 BP 132/78 Blood Pressure Location Lt brachial Position Sitting Pulse 80 Pulse Source Pulse Oximeter Pulse Oximetry (%) 98 Oxygen Delivery Method Room Air Intake Visit Reasons: Sleep apnea Intake Note: pt here follow up of allen, and feels good. 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 Required: No Allergies No Known Allergies [No Known Allergies*] Allergy (Verified 04/11/24 13:38) Medication List - Last Reconciled 04/11/24 by Yamilka Bustillo MD acetaminophen 650 mg PO Q6H PRN atenolol 100 mg PO DAILY 90 days atorvastatin 40 mg PO BEDTIME [compression stockings knee-high 20 mmHg] furosemide 40 mg PO QAM lactulose 15 mL PO DAILY lisinopril 20 mg PO DAILY 90 days oxycodone-acetaminophen 5-325 mg 1 tab PO Q12H PRN 30 days potassium chloride ER (Klor-Con M) 20 mEq PO QAM tadalafil 10 mg PO DAILY 90 days warfarin 5 mg See Protocol PO DAILY 90 days Do you need a note to return to daycare/school/sports/work: No HPI HPI Sleep apnea: Details: One is 68 years old very pleasant gentleman who has morbid obesity and obstructive sleep apnea. He has been using CPAP for more than a year, has been very regular user, and offers no complaints related to the mask or CPAP device. He is not able to lose weight as he can not do much exercise. He has hard time to control his appetite. [facility] Medical History Prostate cancer Seroma after procedure Peripheral vascular disease Poor circulation Leg edema Morbid obesity Opiate dependence ALLEN (obstructive sleep apnea) Lumbar degenerative disc disease PAF (paroxysmal atrial fibrillation) Essential hypertension History of stroke Paroxysmal atrial flutter Ventricular tachyarrhythmia Hypertrophic cardiomyopathy Surgical History H/O colonoscopy Status post aorto-coronary artery bypass graft Status post mitral valve replacement Status post implantation of mitral valve leaflet clip History of cardiac pacemaker (~03/2014) History of cardiac catheterization Family History Father Diabetes Mother No problems noted. Social History Housing: Apartment Alcohol intake: current Alcohol intake frequency: holidays/special occasions only Alcohol type: hard liquor Patient Tobacco Use Status: Never used Tobacco e-Cigarette/Vaping Use: Never Used Second Hand Smoke Exposure: No service: No Current occupational status: unemployed Cognitive needs: Yes Hearing needs: No Vision needs: Yes Review of Systems Const All systems reviewed & are unremarkable except as noted in HPI and below Denies chills and Denies fever(s) Eyes Reports no additional complaints ENT Reports no additional complaints Card Reports no additional complaints and Denies syncope Resp Denies cough and Denies wheezing GI Denies abdominal pain and Denies heartburn Reports as per HPI and Denies change in libido Musc Reports back pain Skin/Breast Reports system reviewed and no additional complaints, except as documented Neuro Denies syncope Psych Denies change in libido Endo Denies change in libido Aller/Immun Denies wheezing Physical Exam Vital Signs: Last Vital Signs Pulse 80 04/11/24 13:25 BP 132/78 04/11/24 13:25 Pulse Ox 98 04/11/24 13:25 Oxygen Delivery Method Room Air 04/11/24 13:25 BMI result Body Mass Index 41.9 Const Other: Grossly obese General: comfortable, no acute distress, alert and awake Orientation/consciousness: patient oriented x3 HEENT Head: Yes normal to inspection General nose exam: No nasal polyps present and No nasal discharge present Face and sinus: Yes sinuses nontender Mouth: oropharynx normal Throat: No posterior oropharynx normal (Moderately crowded, Mallampati class 3. ) and No uvula laterally displaced (Patient has had uvulopalatoplasty) Eyes General: appearance normal, both eyes and all related structures Neck Neck: Yes normal visual inspection, Yes no lymphadenopathy, Yes trachea midline and Yes no JVD Thyroid: Thyroid normal Chest Chest palpation & inspection: normal inspection of the chest, normal palpation of entire chest wall and no tenderness Resp Effort & Inspection: normal respiratory effort Auscultation: clear to auscultation bilaterally, no crackles and no wheezes Cardio Palpation: normal PMI Rate: regular rate Rhythm: regular rhythm Heart sounds: no gallops and no murmurs Peripheral pulses: Peripheral pulses 2+ throughout GI Palpation (GI): Soft to palpation, nontender, No hepatosplenomegaly present and no masses Auscultation: normal bowel sounds Back/Spine/Pelvis Thoracic/Lumbar Spine: thoracic and lumbar spine normal to inspection and thoraco-lumbar ROM limited Skin General skin exam: no rashes or lesions noted Neuro General: patient oriented x3 and no focal motor deficits Cranial nerves: Yes CN's II-XII intact bilaterally Extrem General: Yes normal to inspection, Yes no clubbing, cyanosis or edema and Yes no calf tenderness Psych Appearance: grossly normal and well kempt Speech and movement: Normal speech and movement present Results Reviewed Results Reviewed: Compliance report for the last 30 nights is reviewed. He has used 30/30 nights, 100%. Average use it per night 6 hours 24 minutes Residual AHI only 2.5 Assessment & Plan Assessment & Plan (1) Morbid obesity: Comment: The patient is relatively inactive. He does have gross obesity. ,He is a simple minded javier . I do not expect him to lose much weight. Code(s): E66.01 - Morbid (severe) obesity due to excess calories Category: Medical Plan: Talked to him about who need losing weight. He can not control his diet, And he is not able to do much exercise. He has not much to motivated to go to any weight management program . (2) ALLEN (obstructive sleep apnea): Comment: He does have severe obstructive Sleep apnea He is very very compliant and benefits from the use of CPAP. His sleep quality is much better. Code(s): G47.33 - Obstructive sleep apnea (adult) (pediatric) Category: Medical Plan: Commended for good compliance and advised to continue using CPAP every night 6-7 hours per night . Coding Level of Care Code Est Pt Level 3 (50123) Diagnoses Morbid obesity E66.01 ALLEN (obstructive sleep apnea) G47.33
== END 2024-04-11 13:39 | disposition home or self-care (01) ==
PROVIDERS: PCP Internal Medicine; Visit Provider Internal Medicine
DX: E66.01 Morbid (severe) obesity due to excess calories (principal); G47.33 Obstructive sleep apnea (adult) (pediatric)
CPT/HCPCS: 99213

== ENCOUNTER → 2024-04-11 13:14 | Outpatient (BNVA) | payer OTHER, SELFPAY | PROVIDERS: PCP Internal Medicine; Visit Provider Internal Medicine | DX: G47.33 Obstructive sleep apnea (adult) (pediatric) (principal); E66.01 Morbid (severe) obesity due to excess calories; Z68.41 Body mass index [BMI] 40.0-44.9, adult | CPT/HCPCS: 99212 ==

== ENCOUNTER 2024-04-16 10:06 | Outpatient (AMB) | payer OTHER, SELFPAY ==
--- NOTE | 2024-04-16 10:06 | MHC.OFFVIS ---
Intake Visit Reasons: 3M PSA/Testo(Testo pending) Intake Note: Patient is present for 3M PSA/TESTO Urology Medication:NONE Antibiotic Allergy:NONE Blood Thinner:WARFARIN Forensic Chemist Required: No Allergies No Known Allergies [No Known Allergies*] Allergy (Verified 04/16/24 10:07) HPI Comments Details: Andres is a very pleasant male. He is a patient of Dr. Peterson. He is seen for the following urologic conditions - prostate cancer - laura recurrence - erectile dysfunction 04/23 PSA 7.4 T 11 Bone scan result pending - left rib maintains activity Add antiandrogen 3m f/u labs 01/22 PSA 7.1 T 177 Restart GNRH 09/21 PSA 3.8 PET-CT - complete resolution of PSMA avid pelvic lymphadenopathy, new left rib activity PSMA avid right internal iliac and presacral lymphadenopathy present at several sites on the 07/27/2021 prior study are not present on the current study 11/20 - PSA <0.1, T1 23 Restart tadalafil 10 mg daily 01/20 mitral valve prolapse with replacement at [facility] - dislodged mitral clip into right ostia Prostate cancer: [place] 4 + 4, group 4, XRT with hormones 2016 - recurrence 2021 pelvic laura with focal XRT and hormones 09/19 PET-CT scan shows positive laura disease along pelvic and retroperitoneal wall Radiation boost therapy with Dr. Walters at [facility] and 6m hormones Prostate cancer was diagnosed 03/2016 Dr Russo. Diagnosis was reached by needle biopsy, for elevated PSA, PSA at diagnosis 34. The [place] grade is 9/12 cores , 4+4 = 8 and , 4+3 = 7 > 40% in all cores. TNM Classification of Malignant Tumours (TNM) T2b. The D'Ankit (NCCN) risk category is High Risk (PSA > 20, Gl 8+, T3) - WYK nomagram pre treatment - 3% OCD, 95% FIDELINA, 70% LNI. Initial therapy included Primary treatment - bicalutamide, hormones 05/05/16 - GnRH , External beam radiation with short term hormonal ablation complete 10/15 - [facility] Recent labs included a PSA (prostate-specific antigen) 05/17 on bicalutamide only - 4.6, T 272 07/15 a PSA (prostate-specific antigen) 0.18, T 12 02/14 , a PSA (prostate-specific antigen) 0.22, , T 12 07/16 PSA 0.2, 10/16 PSA 0.15, 02/15 PSA 0.15 T 193 07/17 PSA 0.5 T 245, 01/17 PSA 1.2 T 260 05/20 0.5 T 240, 10/18 1.7 - 03/20 1.9 - 06/21 1.4, 12/19 2.4, 03/21 2.5, 07/20 4.3, 09/19 3.5, 05/23 <0.1 Recent imaging included 04/15 , a CT (computed tomography) scan - pelvic node 04/15 , a bone scan - negative 07/15 , a DEXA scan - normal. - 07/[address] with laura disease along pelvic basin to retroperitoneal wall PFSH Medical History Prostate cancer Seroma after procedure Peripheral vascular disease Poor circulation Leg edema Morbid obesity Opiate dependence AXEL (obstructive sleep apnea) Lumbar degenerative disc disease PAF (paroxysmal atrial fibrillation) Essential hypertension History of stroke Paroxysmal atrial flutter Ventricular tachyarrhythmia Hypertrophic cardiomyopathy Surgical History H/O colonoscopy Status post aorto-coronary artery bypass graft Status post mitral valve replacement Status post implantation of mitral valve leaflet clip History of cardiac pacemaker (~03/2014) History of cardiac catheterization Family History Father Diabetes Mother No problems noted. Social History Housing: Apartment Alcohol intake: current Alcohol intake frequency: holidays/special occasions only Alcohol type: hard liquor Patient Tobacco Use Status: Never used Tobacco e-Cigarette/Vaping Use: Never Used Second Hand Smoke Exposure: No service: No Current occupational status: unemployed Cognitive needs: Yes Hearing needs: No Vision needs: Yes Review of Systems Const Denies chills and Denies fever(s) Card Reports no additional complaints and Denies syncope Resp Denies cough GI Denies abdominal pain and Denies heartburn Reports as per HPI and Denies change in libido Neuro Denies syncope Psych Denies change in libido Endo Denies change in libido Physical Exam Const General: cooperative, healthy appearing, comfortable and no acute distress Orientation/consciousness: patient oriented x3 HEENT Face and sinus: Yes normal facial exam Mouth: moist mucous membranes Neck Neck: Yes normal visual inspection, Yes full ROM and Yes trachea midline Chest Chest palpation & inspection: normal inspection of the chest Resp Effort & Inspection: normal respiratory effort, able to speak in complete sentences and no respiratory distress GI Inspection: Yes normal to inspection Back/Spine/Pelvis Cervical Spine: normal cervical lordosis Thoracic/Lumbar Spine: thoracic and lumbar spine normal to inspection Skin General skin exam: no rashes or lesions noted Neuro General: patient oriented x3, gait normal, tone normal and moves all extremities Extrem General: Yes normal to inspection and Yes capillary refill normal Telehealth Telehealth Telehealth Platform: [employer] Location of provider rendering services: practice address Location of patient: address on file Patient Identification confirmed using: Name, : Yes Telehealth method: video Patient verbally consented to treatment: Yes Patient verbally consented to billing insurance company: Yes Patient informed of any privacy concerns related to visit: Yes Minutes spent on Phone/Video with Pt.: 15 Assessment & Plan Assessment & Plan (1) Prostate cancer metastatic to intraabdominal lymph node: Code(s): C61 - Malignant neoplasm of prostate; C77.2 - Secondary and unspecified malignant neoplasm of intra-abdominal lymph nodes Category: Medical Plan restart darolutamide for metastatic hormone sensitive prostate cancer Orders: Orders Prostate Specific Antigen 06/29/24 R97.21 - Rising PSA following treatment for malignant neoplasm of prostate Testosterone, Total 06/29/24 R97.21 - Rising PSA following treatment for malignant neoplasm of prostate Medications: New darolutamide Take medication with food 600 mg (2 x 300 mg) PO BID 30 days 120 tabs 2RF Metastatic prostate cancer C61 - Malignant neoplasm of prostate, C77.5 - Secondary and unspecified malignant neoplasm of intrapelvic lymph nodes, R97.21 - Rising PSA following treatment for malignant neoplasm of prostate Patient Instructions: Imaging studies, laboratory and physical exam results were discussed and reviewed in detail. No major barriers to patient understanding were identified. An opportunity to ask questions regarding the treatment plan was provided. All questions were answered. The patient expressed understanding and agreement with the above treatment plan. The patient is aware they should contact our office by phone for worsening of their current condition or the appearance of new urologic symptoms. Compliance is encouraged with any medications and followup testing that is ordered. It is a privilege to participate in the urologic care of your patient. If you have any questions or concerns regarding treatment for the above conditions, or other urologic issues, please do not hesitate to contact me. The office telephone contact is [phone]. This note is constructed using voice recognition software. While every effort has been made to ensure accuracy fertilizing machine operator errors may have been included. Yours sincerely, Dr Jian Russo MD, [facility] - Urology Providers of Expert, Compassionate Care for the Genitourinary System Coding Level of Care Code Tele Est Pt Level 4 (68319) Diagnoses Prostate cancer metastatic to intraabdominal lymph node C61; C77.2
--- OUTSIDE RECORDS SUMMARY | 2024-04-16 10:11 | XMS_ITS | Data Portability ---
Author Organization [place] [facility] Address [address] [place] [address] Care Team Providers Care Numerical Control Tool Programmer Name Role Phone SANGITA REID Primary Care Provider Assessment Encounter Date Assessment Date Assessment LastModified by Organization Details LastModified Time 01/18/2022 01/18/2022 66 YO M patient establishing care with . On 12/14 he had open heart surgery at [facility] the transferred to [facility] facility. His sternotomy surgical incision has healed well. However he has a left medial lower leg surgical incision which is draining clear fluid. He was seen by his regular wire worker located in [place] Dr. Ramirez who did not assess his [...] held in place with Kerlix. Spoke to Jasbri ASCENCIO, who originally contacted , with detail [...] departure. Time On Scene with Patient: 01:11:41 [email or web address] Not available 01/18/2022 14:37:44 Plan of Treatment [...] By Organization Details Last Modified Time 01/18/2022 [id number] Thank you for yo ur visit with [facility] today. You were seen today for [...] condition between 8am-10pm, please call [facility] at [phone] to help navigate your care. 3 Not available 01/18/2022 13:18:22 Reason for Referral None Reported. Procedures Surgical History Date Name Laterality Status Provider Name and Address Organization Details Recorded Time open heart surgery completed October FREDO Engel [address], [place], [address], [place] [facility] 01/18/2022 13:26:42 Imaging Results [...] Smoker October FREDO Engel [address], [place], [address], [place] [facility] 01/18/2022 13:24:50 Do You Have An Advance Directive? Yes Information not available 01/18/2022 What Is Your Level Of Alcohol Consumption? Occasional [email or web address] Information not available 01/18/2022 Is Blood Transfusion Acceptable In An Emergency? Yes [email or web address] Information not available 01/18/2022 What Is Your Code Status? Full Code [email or web address] Information not available 01/18/2022 Within The Past 12 Months, Has It Happened That The Food You Bought Just Didn't Last And You Didn't Have Money To Get More. No Information not available 01/18/2022 Within The Past 12 Months, Have You Worried That Your Food Would Run Out Before You Got Money To Buy More. No Information not available 01/18/2022 Fall Risk: Do You Feel Unsteady When Standing Or Walking? No [email or web address] Information not available 01/18/2022 We Know That How And When People Interact With Friends And Family Can Be Very Different From Person To Person. How Often Do You Have The Opportunity To See Or Talk To People That You Care About And Feel Close To? (Ex: Talking To Friends On The Phone Or Visiting Friends Or Family Or Going To Holiness Or Club Meetings) Choose Not To Answer This Question [email or web address] Information not available 01/18/2022 Excessive Alcohol Or Drug Use No [email or web address] Information not available 01/18/2022 Does This Patient Have A PCP? Yes [email or web address] Information not available 01/18/2022 Is This Patient In Hospice? No [email or web address] Information not available 01/18/2022 We Know From Many Of Our Patients That Covering All Of Their Costs Can Be Difficult At Times. This Can Cause Stress And Impact Health. In The Past Year, Have You Been Unable To Get Any Of The Following When It Was Really Needed? No [email or web address] Information not available 01/18/2022 What Is Your Housing Situation Today? I Have Housing [email or web address] Information not available 01/18/2022 Would You Like Help Connecting To Resources? None [email or web address] Information not available 01/18/2022 Do You Use Any Illicit Or Recreational Drugs? No [email or web address] Information not available 01/18/2022 Sex: Unknown Functional Status None recorded. Mental Status None recorded. Family History Nothing Reported. Medical History Condition Response Coronary Artery Disease Y Depression N COPD N Hypothyroidism N A-fib N Cancer Y Stroke N High Cholesterol Y Rheumatoid Arthritis N Kidney Disease N Parkinson's Disease N Diabetes N CHF N Dementia N Asthma Y Pulmonary Embolism N Hypertension Y Osteoporosis N Past Encounters Encounter ID Performer Location Encounter Start Date Encounter Closed Date Diagnosis/Indication Diagnosis SNOMED-CT Code Diagnosis ICD10 Code [id number] October FREDO Engel [facility] [address] [place] [address] 01/18/2022 13:08:34 01/19/2022 07:50:40 Surgical incision wound of skin [id number] 00 R23.8 Health Concerns Section Related Observation LastModified by Organization Detai ls LastModified Time None Recorded Concern Status LastModified by Organization Details LastModified Time None Recorded Advance Directives Directive Y: Payers Encounter Date Sequence Insurance Name Policy Number Policy Ma Covered Member ID Ma Member ID Guarantor Name 01/18/2022 1 [place] [employer] Andres Weiss [id number] Andres Weiss 01/18/2022 2 [place] [facility] Andres Weiss [id number] Andres Weiss Notes Date Note Type Note Provider Name and Address Organization Details Recorded Time 01/18/2022 text/html 66 YO M patient establishing care with . On 12/14 he had open heart surgery at [facility] the transferred to [facility] facility. His sternotomy surgical incision has healed well. However he has a left medial lower leg surgical incision which is draining clear fluid. He was seen by his regular wire worker located in [place] Dr. Ramirez who did not assess his leg wound because it wasn't draining at the time . Clear drainage of surgical incision began yesterday at 4 p.m. [facility] contacted for assessment. It was a scab and then it came off . October FREDO Engel [address] [place], [address], [place] [facility] 01/30/2022 10:04:41
== END 2024-04-16 12:12 | disposition home or self-care (01) ==
LOC: HO.HUSH 10:06
PROVIDERS: PCP Internal Medicine; Visit Provider Urology
DX: C61 Malignant neoplasm of prostate (principal); C77.2 Secondary and unspecified malignant neoplasm of intra-abdominal lymph nodes
CPT/HCPCS: 99214

== ENCOUNTER → 2024-04-16 10:06 | Outpatient (BNVA) | payer OTHER, SELFPAY | PROVIDERS: PCP Internal Medicine; Visit Provider Urology ==

== ENCOUNTER 2024-04-26 10:04 | Outpatient (AMB) | payer OTHER, SELFPAY ==
[2024-04-26 10:53] LABS: Prothrombin Time Whole Bld POC 30.9 sec (11.1-13.5); ~PT, ~INR - Anti Coag Clinic 2.6 (0.9-1.1)
--- NOTE | 2024-04-26 10:56 | MHC.OFFVISCO ---
Intake Intake Visit Reasons: Anticoagulation Allergies No Known Allergies [No Known Allergies*] Allergy (Verified 04/26/24 10:48) Medication List - Last Reconciled 04/26/24 by Hanna Magaña RN acetaminophen 650 mg PO Q6H PRN atenolol 100 mg PO DAILY 90 days atorvastatin 40 mg PO BEDTIME [compression stockings knee-high 20 mmHg] darolutamide 600 mg (2 x 300 mg) PO BID 30 days furosemide 40 mg PO QAM lactulose 15 mL PO DAILY lisinopril 20 mg PO DAILY 90 days oxycodone-acetaminophen 5-325 mg 1 tab PO Q12H PRN 30 days potassium chloride ER (Klor-Con M) 20 mEq PO QAM tadalafil 10 mg PO DAILY 90 days warfarin 5 mg See Protocol PO DAILY 90 days Nursing Note INR: 2.6 in therapeutic range Medications and supplements reviewed No changes in health, diet, medications, or supplements, Denies any signs and symptoms of bleeding or bruising or clotting. Bleeding, bruising, clotting discussed Nutritional guidance given Dose: 7.5MG FRI/ 5MG X 6 DAYS F/U INR: 1 MONTH Patient verbalizes understanding of instructions given Anti-Coag Initial Assessment Social Hx Patient Tobacco Use Status: Never used Tobacco alcohol intake: current Alcohol intake frequency: holidays/special occasions only Cardiovascular Hx: HTN, Arrhythmias and Cardiomyopathy Musculoskeletal Hx: Other Blood Disorder Hx: Hyperlipidemia Hx: Prostate Neurological Hx: Stroke/TIA Cancer HX: Yes (prostate) Psych. 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
== END 2024-04-26 10:58 | disposition home or self-care (01) ==
LOC: HO.ACS 10:04
PROVIDERS: PCP Internal Medicine; Visit Provider Internal Medicine
DX: Z79.01 Long term (current) use of anticoagulants (principal)

== ENCOUNTER → 2024-04-26 10:04 | Outpatient (BNVA) | payer OTHER, SELFPAY | PROVIDERS: PCP Internal Medicine; Visit Provider Internal Medicine | DX: Z95.2 Presence of prosthetic heart valve (principal); Z79.01 Long term (current) use of anticoagulants; Z51.81 Encounter for therapeutic drug level monitoring | CPT/HCPCS: 85610; 99211 ==

== ENCOUNTER 2024-05-31 09:56 | Outpatient (AMB) | payer OTHER, SELFPAY ==
--- OUTSIDE RECORDS SUMMARY | 2024-05-31 10:33 | XMS_ITS | Clinical Summary ---
Author Organization [employer] [facility] ity Address [address] [place] [address] Care Team Providers Care Community Educator Name Role Phone Unavailable Primary Care Provider Unavailabl e Social History Tobacco Use Types Packs/Day Years Used Date Smoking Tobacco: Never Assessed Sex and Gender Information Value Date Recorded Sex Assigned at Not on file Gender Identity Not on file Sexual Orientation Not on file Plan of Treatment Health Maintenance Due Date Last Done Comments DTaP,Tdap,and Td Vaccines (1 - Tdap) 07/11/1975 Zoster Vaccines (1 of 2) 2006 Pneumococcal Vaccine: 65+ Ye ars (1 of 1 - PCV) 2021 Abdominal Aortic Aneurysm (A AA) Screen 03/29/2022 Cholesterol Screening (Lipid Panel) 03/29/2022 Colorectal Cancer Screening: Colonoscopy 03/29/2022 Depression Screening 03/29/2022 Falls Risk Assessment 03/29/2022 Hepatitis C Screening 03/29/2022 Social Influencers of Health Screening 03/29/2022 COVID-19 Vaccine ( - 2023-2 5 season) 2023 Influenza Vaccine (#1) 2023 RSV Immunization Patients 60 + Years Old (1 - 1-dose 75+ series) 07/11/2031 HIB Vaccines Aged Out No longer eligi ble based on patient's age to complete this topic HPV Vaccines Aged Out No longer eligi ble based on patient's age to complete this topic Hepatitis A Vaccines Aged Out No long er eligible based on patient's age to complete this topic Hepatitis B Vaccines Aged Out No long er eligible based on patient's age to complete this topic IPV Vaccines Aged Out No longer eligi ble based on patient's age to complete this topic MMR Vaccines Aged Out No longer eligi ble based on patient's age to complete this topic Meningococcal ACWY Vaccine Aged Out N o longer eligible based on patient's age to complete this topic RSV Immunization Patients Un temo 20 months Aged Out No longer eligible b ased on patient's age to complete this topic Varicella Vaccines Aged Out No longer eligible based on patient's age to complete this topic
[2024-05-31 10:38] LABS: Prothrombin Time Whole Bld POC 35.5 sec (11.1-13.5)
--- NOTE | 2024-05-31 10:39 | MHC.OFFVISCO ---
Intake Intake Visit Reasons: Anticoagulation Allergies No Known Allergies [No Known Allergies*] Allergy (Verified 05/31/24 10:34) Medication List - Last Reconciled 05/31/24 by Brissa Daniels RN acetaminophen 650 mg PO Q6H PRN atenolol 100 mg PO DAILY 90 days atorvastatin 40 mg PO BEDTIME [compression stockings knee-high 20 mmHg] darolutamide 600 mg (2 x 300 mg) PO BID 30 days furosemide 40 mg PO QAM lactulose 15 mL PO DAILY lisinopril 20 mg PO DAILY 90 days oxycodone-acetaminophen 5-325 mg 1 tab PO Q12H PRN 30 days potassium chloride ER (Klor-Con M) 20 mEq PO QAM tadalafil 10 mg PO DAILY 90 days warfarin 5 mg See Protocol PO DAILY 90 days Nursing Note INR: 3.0 in therapeutic range of 2.5-3.0 Medications and supplements reviewed No changes in health, diet, medications, or supplements, Denies any signs and symptoms of bleeding or bruising or clotting. Bleeding, bruising, clotting discussed Nutritional guidance given Dose: 5mg X 6 days and 7.5mg X 1 day F/U INR: []Patient verbalizes understanding of instructions given Anti-Coag Initial Assessment Social Hx Patient Tobacco Use Status: Never used Tobacco alcohol intake: current Alcohol intake frequency: holidays/special occasions only Cardiovascular Hx: HTN, Arrhythmias and Cardiomyopathy Musculoskeletal Hx: Other Blood Disorder Hx: Hyperlipidemia Hx: Prostate Neurological Hx: Stroke/TIA Cancer HX: Yes (prostate) Psych. Illness/Depression: No Coding Level of Care Code Est Patient Level 1 Diagnoses Current use of anticoagulant therapy Z79.01 Assessment & Plan Assessment & Plan (1) Current use of anticoagulant therapy: Code(s): Z79.01 - shelter (current) use of anticoagulants Category: Medical
== END 2024-05-31 10:44 | disposition home or self-care (01) ==
LOC: HO.ACS 09:56
PROVIDERS: PCP Internal Medicine; Visit Provider Internal Medicine
DX: Z79.01 Long term (current) use of anticoagulants (principal)

== ENCOUNTER 2024-06-26 07:43 | Outpatient (REF) | payer OTHER, SELFPAY ==
--- OUTSIDE RECORDS SUMMARY | 2024-06-26 07:50 | XMS_ITS | Clinical Summary ---
Author Organization [facility] [employer] [facility] ity Address [address] [place] [address] Care Team Providers Care Fur Feeder Name Role Phone Unavailable Primary Care Provider Unavailabl e Social History Tobacco Use Types Packs/Day Years Used Date Smoking Tobacco: Never Assessed Sex and Gender Information Value Date Recorded Sex Assigned at Not on file Legal Sex Male 1:14 PM EST Gender Identity Not on file Sexual Orientation Not on file Plan of Treatment Health Maintenance Due Date Last Done Comments DTaP,Tdap,and Td Vaccines (1 - Tdap) 07/11/1975 Pneumococcal Vaccine: 50+ Ye ars (1 of 1 - PCV) 2006 Zoster Vaccines (1 of 2) 2006 Abdominal Aortic Aneurysm (A AA) Screen 03/29/2022 [...] patient's age to complete this topic Meningococcal B Vacine Aged Out No lo nger eligible based on patient's age to complete this topic RSV Immunization Patients Un temo 20 months Aged Out No longer eligible b ased on patient's age to complete this topic Varicella Vaccines Aged Out No longer eligible based on patient's age to complete this topic
--- OUTSIDE RECORDS SUMMARY | 2024-06-26 07:50 | XMS_ITS | Data Portability ---
Author Organization [place] [facility] Address [address] [place] [address] Care Team Providers Care Physician President Name Role Phone SANGITA REID Primary Care Provider Assessment Encounter Date Assessment Date Assessment LastModified by Organization Details LastModified Time 01/18/2022 01/18/2022 66 YO M patient establishing care with . On 12/14 he had open heart surgery at [facility] the transferred to [facility] facility. His sternotomy surgical incision has healed well. However he has a left medial lower leg surgical incision which is draining clear fluid. He was seen by his regular notching press operator located in [place] Dr. Ramirez who did not assess his [...] departure. Time On Scene with Patient: 01:11:41 [email or web address] Not available 01/18/2022 14:37:44 Plan of Treatment [...] By Organization Details Last Modified Time 01/18/2022 [id number] Thank you for yo ur visit with [facility] today. You were seen today for [...] in your condition between 8am-10pm, please call [facility] at [phone] to help navigate your care. [email or web address] Not available 01/18/2022 13:18:22 Reason for Referral None Reported. Procedures Surgical History Date Name Laterality Status Provider Name and Address Organization Details Recorded Time open heart surgery completed October FREDO Engel [address], [place], [address], [place] [facility] 01/18/2022 13:26:42 Imaging Results [...] Smoker October FREDO Engel [address], [place], [address], [place] [facility] 01/18/2022 13:24:50 Do You Have An Advance Directive? Yes [email or web address] Information not available 01/18/2022 What Is Your Level Of Alcohol Consumption? Occasional [email or web address] Information not available 01/18/2022 Is Blood Transfusion Acceptable In An Emergency? Yes Information not available 01/18/2022 What Is Your Code Status? Full Code [email or web address] Information not available 01/18/2022 Within The Past 12 Months, Has It Happened That The Food You Bought Just Didn't Last And You Didn't Have Money To Get More. No [email or web address] Information not available 01/18/2022 Within The Past 12 Months, Have You Worried That Your Food Would Run Out Before You Got Money To Buy More. No [email or web address] Information not available 01/18/2022 Fall Risk: Do You Feel Unsteady When Standing Or Walking? No [email or web address] Information not available 01/18/2022 We Know That How And When People Interact With Friends And Family Can Be Very Different From Person To Person. How Often Do You Have The Opportunity To See Or Talk To People That You Care About And Feel Close To? (Ex: Talking To Friends On The Phone Or Visiting Friends Or Family Or Going To Hinduism Or Club Meetings) Choose Not To Answer This Question [email or web address] Information not available 01/18/2022 Excessive Alcohol Or Drug Use No [email or web address] Information not available 01/18/2022 Does This Patient Have A PCP? Yes [email or web address] Information not available 01/18/2022 Is This Patient In Hospice? No [email or web address] Information not available 01/18/2022 We Know From Many Of Our Patients That Covering All Of Their Costs Can Be Difficult At Times. This Can Cause Stress And Impact Health. In The Past Year, Have You Been Unable To Get Any Of The Following When It Was Really Needed? No [email or web address] Information not available 01/18/2022 What Is Your Housing Situation Today? I Have Housing Information not available 01/18/2022 Would You Like Help Connecting To Resources? None [email or web address] Information not available 01/18/2022 Do You Use Any Illicit Or Recreational Drugs? No [email or web address] Information not available 01/18/2022 Sex: Unknown Functional [...] Diagnosis/Indication Diagnosis SNOMED-CT Code Diagnosis ICD10 Code Diagnosis Note [id number] October FREDO Engel [facility] [address] [place] [address] 01/18/2022 13:08:34 01/19/2022 07:50:40 Surgical incision wound of skin [id number] R23.8 Health Concerns Section Related Observation LastModified by Organization Detai ls LastModified Time None Recorded Concern Status LastModified by Organization Details LastModified Time None Recorded Advance Directives Directive Y: Payers Encounter Date Sequence Insurance Name Policy Number Policy Ma Covered Member ID Ma Member ID Guarantor Name 01/18/2022 1 [place] [employer] Andres Weiss [id number] Andres Weiss 01/18/2022 2 [place] [facility] Andres Weiss [id number] Andres Weiss Notes Date Note Type Note Provider Name and Address Organization Details Recorded Time 01/18/2022 [email or web address] 66 YO M patient establishing care with . On 12/14 he had open heart surgery at [facility] the transferred to [facility] facility. His sternotomy surgical incision has healed well. However he has a left medial lower leg surgical incision which is draining clear fluid. He was seen by his regular notching press operator located in [place] Dr. Ramirez who did not assess his leg wound because it wasn't draining at the time . Clear drainage of surgical incision began yesterday at 4 p.m. [facility] contacted for assessment. It was a scab and then it came off . October FREDO Engel [address] [place], [address], [place] [facility] 01/30/2022 10:04:41
[2024-06-26 08:00] LABS: MANUAL DIFF FLAG NO
[2024-06-26 08:11] LABS: Basophils Percent Auto 0.4 % (0-2); Eosinophils Absolute Auto 0.3 X10*3/uL (0.0-0.4); Eosinophils Percent Auto 5.1 % (0-4); Hematocrit 40.6 % (42.0-52.0); Hemoglobin 13.3 g/dl (14.0-18.0); Imm Gran Abs Auto 0.02 X10*3/uL (0.00-0.03); Imm Gran Pct Auto 0.4 % (0.0-0.4); Lymphocytes Absolute Auto 1.6 X10*3/uL (1.2-4.9); Lymphocytes Percent Auto 29.1 % (20-40); Mean Corpuscular HGB Conc 32.8 g/dl (31.0-36.0); Mean Corpuscular Hemoglobin 29.9 pg (27.0-33.0); Mean Corpuscular Volume 91.2 fL (80.0-98.0); Mean Platelet Volume 9.9 fL (9.4-12.4); Monocytes Absolute Auto 0.5 X10*3/uL (0.1-1.2); Monocytes Percent Auto 9.2 % (2-11); Neutrophils Absolute Auto 3.2 x10*3/uL (2.0-8.3); Neutrophils Percent Auto 55.8 % (45-73); Platelet Count 189 X10*3/uL (160-400); Red Blood Count 4.45 X10*6/uL (4.60-5.80); Red Cell Distribution Width 13.6 % (11.0-16.0); White Blood Count 5.6 X10*3/uL (4.8-10.8)
[2024-06-26 08:52] LABS: Alanine Aminotransferase 32 U/L (0-40); Alkaline Phosphatase 64 U/L (39-117); Anion Gap 11 (12-20); Aspartate Amino Transferase 43 U/L (5-37); Bilirubin Total 1.4 mg/dL (0.0-1.0); Blood Urea Nitrogen 19 mg/dL (9-16); Calcium 9.1 mg/dL (8.4-10.2); Carbon Dioxide 26 mmol/L (22-29); Chloride 107 mmol/L (96-108); Cholesterol 132 mg/dL (<200); Estimated Glomerular Filt Rate > 60; Glucose Fasting 101 mg/dL (60-99); HDL Cholesterol 48 mg/dL (>40); Iron 92 mcg/dL (45-160); LDL Cholesterol Calculated 59 mg/dL (<100); Percent Iron Saturation 33 % (15-50); Potassium 4.4 mmol/L (3.3-5.1); Sodium 140 mmol/L (135-145); Total Iron Binding Capacity 282 mcg/dL (228-428); Total Protein 7.9 g/dL (6.5-8.0); Triglycerides 126 mg/dL (<150); Unsaturated Iron Binding 190 ug/dL
[2024-06-26 09:02] LABS: Prostate Specific Antigen 9.06 ng/mL (<0.05-4.0)
[2024-06-26 09:11] LABS: Vitamin D 25-OH Total 27.2 ng/mL (>30)
[2024-07-01 00:39] LABS: Testosterone, Total 9 ng/dL (250-1100)
== END 2024-06-26 07:44 | disposition home or self-care (01) ==
LOC: HO.LAB 07:43
PROVIDERS: Urology; PCP Internal Medicine; Visit Provider Internal Medicine
DX: R97.21 Rising PSA following treatment for malignant neoplasm of prostate (principal); I10 Essential (primary) hypertension; D64.9 Anemia, unspecified; E78.5 Hyperlipidemia, unspecified; E55.9 Vitamin D deficiency, unspecified; Z12.5 Encounter for screening for malignant neoplasm of prostate
CPT/HCPCS: 36415; 80053; 80061; 82306; 83540; 84153; 84403; 85025

== ENCOUNTER 2024-06-28 10:27 | Outpatient (AMB) | payer OTHER, SELFPAY ==
--- NOTE | 2024-06-28 10:42 | MHC.OFFVISCO ---
Intake Intake Visit Reasons: Anticoagulation Allergies No Known Allergies [No Known Allergies*] Allergy (Verified 06/28/24 10:34) Medication List - Last Reconciled 06/28/24 by Hanna Magaña RN acetaminophen 650 mg PO Q6H PRN atenolol 100 mg PO DAILY 90 days atorvastatin 40 mg PO BEDTIME [compression stockings knee-high 20 mmHg] darolutamide 600 mg (2 x 300 mg) PO BID 30 days furosemide 40 mg PO QAM lactulose 15 mL PO DAILY lisinopril 20 mg PO DAILY 90 days oxycodone-acetaminophen 5-325 mg 1 tab PO Q12H PRN 30 days potassium chloride ER (Klor-Con M) 20 mEq PO QAM tadalafil 10 mg PO DAILY 90 days warfarin 5 mg See Protocol PO DAILY 90 days Nursing Note INR: 3.2 OUT OF therapeutic range 2.5-3.0 - May not have had enough greens Medications and supplements reviewed No changes in health, diet, medications, or supplements, Denies any signs and symptoms of bleeding or bruising or clotting. Bleeding, bruising, clotting discussed Nutritional guidance given - make sure to eat greens weekly - cooked greens lower your INR more than raw greens Dose: keep same dose 5mg x 6 days/ 7.5mg x 1 day F/U INR: 4 weeks Patient verbalizes understanding of instructions given Anti-Coag Initial Assessment Social Hx Patient Tobacco Use Status: Never used Tobacco alcohol intake: current Alcohol intake frequency: holidays/special occasions only Cardiovascular Hx: HTN, Arrhythmias and Cardiomyopathy Musculoskeletal Hx: Other Blood Disorder Hx: Hyperlipidemia Hx: Prostate Neurological Hx: Stroke/TIA Cancer HX: Yes (prostate) Psych. Illness/Depression: No Coding Level of Care Code Est Patient Level 1 Diagnoses Current use of anticoagulant therapy Z79.01 Results AMB INR Fingerstick AMB INR Fingerstick 3.2 Last Edit by Hanna Magaña RN on 06/28/24 10:41 manual entry Assessment & Plan Assessment & Plan (1) Current use of anticoagulant therapy: Code(s): Z79.01 - longterm (current) use of anticoagulants Category: Medical
[2024-06-28 11:29] LABS: Prothrombin Time Whole Bld POC 38.1 sec (11.1-13.5); ~PT, ~INR - Anti Coag Clinic 3.2 (0.9-1.1)
--- OUTSIDE RECORDS SUMMARY | 2024-06-28 11:47 | XMS_ITS | Clinical Summary ---
Author Organization [facility] ity Address [address] [place] [address] Care Team Providers Care Lesson Instructor Name Role Phone Unavailable Primary Care Provider [...]
== END 2024-06-28 10:46 | disposition home or self-care (01) ==
LOC: HO.ACS 10:27
PROVIDERS: PCP Internal Medicine; Visit Provider Internal Medicine
DX: Z79.01 Long term (current) use of anticoagulants (principal)

== ENCOUNTER → 2024-06-28 10:27 | Outpatient (BNVA) | payer OTHER, SELFPAY | PROVIDERS: PCP Internal Medicine; Visit Provider Internal Medicine | DX: Z95.2 Presence of prosthetic heart valve (principal); Z79.01 Long term (current) use of anticoagulants; Z51.81 Encounter for therapeutic drug level monitoring | CPT/HCPCS: 85610; 99211 ==

== ENCOUNTER 2024-07-01 12:45 | Outpatient (AMB) | payer OTHER, SELFPAY ==
[2024-07-01 12:50] VITALS: BP 118/58; PULSE 78; BMI 41.9
--- NOTE | 2024-07-01 12:50 | A.OFFVIS_ITS ---
Vital Signs 07/01/24 12:50 Height 6 ft 1 in Weight 317 lb 7.45 oz BMI 41.9 BP 118/58 L Blood Pressure Location Lt brachial Position Sitting Pulse 78 Pulse Source Pulse Oximeter Intake Visit Reasons: 6m w device ck Direct Care Professional Services: Direct Care Professional Offered & Declined Allergies No Known Allergies [No Known Allergies*] Allergy (Verified 06/28/24 10:34) Medication List - Last Reconciled 07/01/24 by Young Ramirez MD acetaminophen 650 mg PO Q6H PRN atenolol 50 mg PO DAILY atorvastatin 40 mg PO BEDTIME [compression stockings knee-high 20 mmHg] furosemide 40 mg PO QAM lactulose 15 mL PO DAILY lisinopril 20 mg PO DAILY 90 days oxycodone-acetaminophen 5-325 mg 1 tab PO Q12H PRN 30 days potassium chloride ER (Klor-Con M) 20 mEq PO QAM warfarin 5 mg See Protocol PO DAILY 90 days HPI Comments Details: Andres returns for follow-up regarding his various cardiac issues. He has a long and complex cardiac history. He was diagnosed with hypertrophic cardiomyopathy many years ago. Had an ICD placed for secondary prevention due to ventricular tachycardia. Also has paroxysmal atrial fibrillation that is rather persistent recently. Was taking Xarelto but there were compliance issues and he was then diagnosed with stroke. Then switched to Eliquis. Then in the last few years, diagnosed with severe mitral regurgitation and referred to [facility]. Underwent MitraClip placement. That was complicated by embolism of the mitral clip which led to open mitral valve replacement. In spite of all the above, he states he is actually feeling very good. No new concerns at this time. [facility] Medical History Prostate cancer Seroma after procedure Peripheral vascular disease Poor circulation Leg edema Morbid obesity Opiate dependence AXEL (obstructive sleep apnea) Lumbar degenerative disc disease PAF (paroxysmal atrial fibrillation) Essential hypertension History of stroke Paroxysmal atrial flutter Ventricular tachyarrhythmia Hypertrophic cardiomyopathy Surgical History H/O colonoscopy Status post aorto-coronary artery bypass graft Status post mitral valve replacement Status post implantation of mitral valve leaflet clip History of cardiac pacemaker (~03/2014) History of cardiac catheterization Family History Father Diabetes Mother No problems noted. Social History Housing: Apartment Alcohol intake: current Alcohol intake frequency: holidays/special occasions only Alcohol type: hard liquor Patient Tobacco Use Status: Never used Tobacco e-Cigarette/Vaping Use: Never Used Second Hand Smoke Exposure: No service: No Current occupational status: unemployed Cognitive needs: Yes Hearing needs: No Vision needs: Yes Review of Systems Const Denies weakness ENT Denies dizziness Card Denies chest pain, Denies chest pain with activity, Denies syncope, Denies rapid heart rate, Denies pedal edema, Denies edema, Denies leg edema, Denies lightheadedness, Denies palpitations, Denies dyspnea, Denies dyspnea on exertion and Denies orthopnea Resp Denies cough, Denies dyspnea and Denies dyspnea on exertion GI Denies hematochezia and Denies change in stool character Musc Denies abnormal gait, Denies muscle cramps, Denies muscle weakness, Denies numbness, Denies radiating pain into limb and Denies tingling Neuro Denies abnormal gait, Denies dizziness, Denies syncope, Denies numbness, Denies tingling and Denies weakness Endo Denies palpitations Physical Exam Vital Signs: Last Vital Signs Pulse 78 07/01/24 12:50 BP 118/58 L 07/01/24 12:50 BMI result Body Mass Index 41.9 Const General: comfortable and no acute distress Orientation/consciousness: patient oriented x3 HEENT Other: Unremarkable Head: Yes normal to inspection Neck Neck: Yes normal visual inspection Chest Chest palpation & inspection: normal inspection of the chest Resp Auscultation: clear to auscultation bilaterally Cardio Other: Normal prosthetic heart sounds GI Palpation (GI): Soft to palpation Back/Spine/Pelvis Other: unremarkable Skin General skin exam: no rashes or lesions noted Neuro General: patient oriented x3 Extrem General: Yes normal to inspection Psych Mental Status: mental status grossly normal Office Procedures Cardiac Device Check Cardiac Device Check Details: ICD interrogated today. Programmed VVI. Battery status more than 2 years. Normal lead parameters. No alerts. Overall, normal device function. [address]113-[id number] Cardiac Device Check, single lead implantable defibrillator Procedure code (CPT) selection complete Assessment & Plan Assessment & Plan (1) Status post mitral valve replacement: Code(s): Z95.2 - Presence of prosthetic heart valve Category: Surgical Plan: Status post mechanical mitral valve replacement with On-X valve. Also had tricuspid valve repair with 34 mm Medtronic band. Per [facility] discharge summary, goal INR 2.5-3. 2-3 also mentioned to be as acceptable. He was on aspirin but decided not take it anymore. Infective endocarditis prophylaxis as needed. Normally functioning mechanical mitral valve on last echocardiogram. (2) Status post implantation of mitral valve leaflet clip: Code(s): Z98.890 - Other specified postprocedural states; Z95.818 - Presence of other cardiac implants and grafts Category: Surgical Plan: Status post removal. (3) Status post aorto-coronary artery bypass graft: Code(s): Z95.1 - Presence of aortocoronary bypass graft Category: Surgical Plan: Status post CABG x1; saphenous vein graft right coronary artery. Based on the op note, embolization of MitraClip right coronary artery ostia with right coronary artery occlusion and acute VT. Based on catheterization report, no significant obstructive coronary disease overall. (4) Hypertrophic cardiomyopathy: Code(s): I42.2 - Other hypertrophic cardiomyopathy Category: Medical Plan: No active symptoms. He is only on atenolol. No longer taking verapamil. Had taken disopyramide long time ago. (5) Ventricular tachyarrhythmia: Code(s): I47.2 - Ventricular tachycardia Category: Medical Plan: He has had ICD for several years. No shocks delivered. Normal function. (6) Persistent atrial fibrillation: Code(s): I48.19 - Other persistent atrial fibrillation Category: Medical Plan: As above, remains on beta-blockers. Continue anticoagulation. (7) Essential hypertension: Code(s): I10 - Essential (primary) hypertension Category: Medical Plan: Stable. No changes. (8) History of stroke: Code(s): Z86.73 - Personal history of transient ischemic attack (TIA), and cerebral infarction without residual deficits Category: Medical Plan: Likely cardioembolic. In the past, CTA has been performed at [facility] without any significant carotid disease. (9) AXEL (obstructive sleep apnea): Comment: He does have severe obstructive Sleep apnea He is very very compliant and benefits from the use of CPAP. His sleep quality is much better. Code(s): G47.33 - Obstructive sleep apnea (adult) (pediatric) Category: Medical Plan: h/o possibly uvulopalatopharyngoplasty per patient. Last sleep study reported to have severe AXEL. CPAP Plan He states he would like to avoid testing as much able, as he states his co-pay is too high. Hence we will order testing only if absolutely essential. Medications: New atenolol 50 mg PO DAILY 90 tabs 3RF Coding Level of Care Code Est Pt Level 4 (74061) Complex EM visit Add On G2211 Diagnoses Status post mitral valve replacement Z95.2 Status post implantation of mitral valve leaflet clip Z98.890; Z95.818 Status post aorto-coronary artery bypass graft Z95.1 Hypertrophic cardiomyopathy I42.2 Ventricular tachyarrhythmia I47.2 Persistent atrial fibrillation I48.19 Essential hypertension I10 History of stroke Z86.73 AXEL (obstructive sleep apnea) G47.33 CPT Codes Cardiac Device Check - Cardiac Device 4: [id number]-[id number] Cardiac Device Check, single lead implantable defibrillator ([id number])
--- OUTSIDE RECORDS SUMMARY | 2024-07-01 14:53 | XMS_ITS | Clinical Summary ---
Author Organization [facility] [employer] [facility] ity Address [address] [place] [address] Care Team Providers Care Reconciliation Analyst Name Role Phone Unavailable Primary Care Provider [...]
--- OUTSIDE RECORDS SUMMARY | 2024-07-01 14:53 | XMS_ITS | Data Portability ---
Author Organization [place] - [facility] Address [address] [place] [address] Care Team Providers Care Lookback Coordinator Name Role Phone SANGITA REID Primary Care Provider Assessment Encounter Date Assessment Date Assessment LastModified by Organization Details LastModified Time 01/18/2022 01/18/2022 66 YO M patient establishing care with . On 12/14 he had open heart surgery at [facility] the transferred to [facility] facility. His sternotomy surgical incision has healed well. However he has a left medial lower leg surgical incision which is draining clear fluid. He was seen by his regular medical doctor md located in [place] Dr. Ramirez who did not assess his [...] departure. Time On Scene with Patient: 01:11:41 [email or web address] Not available 01/18/2022 14:37:44 Plan of Treatment [...] By Organization Details Last Modified Time 01/18/2022 [id number] Thank you for yo ur visit with [facility] today. You were seen today for [...] in your condition between 8am-10pm, please call [facility] at [phone] to help navigate your care. [email or web address] Not available 01/18/2022 13:18:22 Reason for Referral None Reported. Procedures Surgical History Date Name Laterality Status Provider Name and Address Organization Details Recorded Time open heart surgery completed October FREDO Engel [address], [place], [address], [place] [facility] 01/18/2022 13:26:42 Imaging Results [...] Not Available verapamil 120 mg tablet TOME MRAY TABLETA ROSALIO VECES AL D A 01/18 [...] Smoker October FREDO Engel [address], [place], [address], [place] [facility] 01/18/2022 13:24:50 Do You Have An Advance Directive? Yes [email or web address] Information not available 01/18/2022 What Is Your Level Of Alcohol Consumption? Occasional [email or web address] Information not available 01/18/2022 Is Blood Transfusion Acceptable In An Emergency? Yes [email or web address] Information not available 01/18/2022 What Is Your Code Status? Full Code [email or web address] Information not available 01/18/2022 Within The Past 12 Months, Has It Happened That The Food You Bought Just Didn't Last And You Didn't Have Money To Get More. No [email or web address] Information not available 01/18/2022 Within The Past 12 Months, Have You Worried That Your Food Would Run Out Before You Got Money To Buy More. No [email or web address] Information not available 01/18/2022 Fall Risk: Do You Feel Unsteady When Standing Or Walking? No [email or web address] Information not available 01/18/2022 We Know That How And When People Interact With Friends And Family Can Be Very Different From Person To Person. How Often Do You Have The Opportunity To See Or Talk To People That You Care About And Feel Close To? (Ex: Talking To Friends On The Phone Or Visiting Friends Or Family Or Going To Synagogue Or Club Meetings) Choose Not To Answer This Question [email or web address] Information not available 01/18/2022 Excessive Alcohol Or Drug Use No [email or web address] Information not available 01/18/2022 Does This Patient Have A PCP? Yes [email or web address] Information not available 01/18/2022 Is This Patient In Hospice? No [email or web address] Information not available 01/18/2022 We Know From Many Of Our Patients That Covering All Of Their Costs Can Be Difficult At Times. This Can Cause Stress And Impact Health. In The Past Year, Have You Been Unable To Get Any Of The Following When It Was Really Needed? No [email or web address] Information not available 01/18/2022 What Is Your Housing Situation Today? I Have Housing [email or web address] Information not available 01/18/2022 Would You Like Help Connecting To Resources? None [email or web address] Information not available 01/18/2022 Do You Use Any Illicit Or Recreational Drugs? No [email or web address] Information not available 01/18/2022 Sex: Unknown Functional Status None recorded. Mental Status None recorded. Family History Nothing Reported. Medical History Condition Response Coronary Artery Disease Y Parkinson's Disease N Depression N COPD N Hypothyroidism N A-fib N Diabetes N CHF N Cancer Y Dementia N Stroke N Asthma Y High Cholesterol Y Rheumatoid Arthritis N Pulmonary Embolism N Hypertension Y Osteoporosis N Kidney Disease N Past Encounters Encounter ID Performer Location Encounter Start Date Encounter Closed Date Diagnosis/Indication Diagnosis SNOMED-CT Code Diagnosis ICD10 Code Diagnosis Note [id number] October FREDO Engel [facility] [address] [place] [address] 01/18/2022 13:08:34 01/19/2022 07:50:40 Surgical incision wound of skin [id number] 00 R23.8 Health Concerns Section Related Observation LastModified by Organization Detai ls LastModified Time None Recorded Concern Status LastModified by Organization Details LastModified Time None Recorded Advance Directives Directive Y: Payers Encounter Date Sequence Insurance Name Policy Number Policy Ma Covered Member ID Ma Member ID Guarantor Name 01/18/2022 1 [place] [employer] Andres Weiss [id number] Andres Weiss 01/18/2022 2 [place] [facility] Andres Weiss [id number] Andres Weiss Notes Date Note Type Note Provider Name and Address Organization Details Recorded Time 01/18/2022 text/html 66 YO M patient establishing care with . On 12/14 he had open heart surgery at [facility] the transferred to [facility] facility. His sternotomy surgical incision has healed well. However he has a left medial lower leg surgical incision which is draining clear fluid. He was seen by his regular medical doctor md located in [place] Dr. Ramirez who did not assess his leg wound because it wasn't draining at the time . Clear drainage of surgical incision began yesterday at 4 p.m. [facility] contacted for assessment. It was a scab and then it came off . October FREDO Engel [address] [place], [address], [place] [facility] 01/30/2022 10:04:41
== END 2024-07-01 13:15 | disposition home or self-care (01) ==
PROVIDERS: PCP Internal Medicine; Visit Provider Internal Medicine
DX: Z95.2 Presence of prosthetic heart valve (principal); Z98.890 Other specified postprocedural states; Z95.818 Presence of other cardiac implants and grafts; Z95.1 Presence of aortocoronary bypass graft; I42.2 Other hypertrophic cardiomyopathy; I47.20 Ventricular tachycardia, unspecified; I48.19 Other persistent atrial fibrillation; I10 Essential (primary) hypertension; Z86.73 Personal history of transient ischemic attack (TIA), and cerebral infarction without residual deficits; G47.33 Obstructive sleep apnea (adult) (pediatric)
CPT/HCPCS: 93282; 99214; G2211

== ENCOUNTER → 2024-07-01 12:45 | Outpatient (BNVA) | payer OTHER, SELFPAY | PROVIDERS: PCP Internal Medicine; Visit Provider Internal Medicine | DX: Z45.02 Encounter for adjustment and management of automatic implantable cardiac defibrillator (principal); I42.2 Other hypertrophic cardiomyopathy; I47.20 Ventricular tachycardia, unspecified; I48.19 Other persistent atrial fibrillation; I10 Essential (primary) hypertension; G47.33 Obstructive sleep apnea (adult) (pediatric); Z86.73 Personal history of transient ischemic attack (TIA), and cerebral infarction without residual deficits; Z95.2 Presence of prosthetic heart valve; Z95.818 Presence of other cardiac implants and grafts; Z95.1 Presence of aortocoronary bypass graft; Z98.890 Other specified postprocedural states | CPT/HCPCS: 99212 ==

== ENCOUNTER 2024-07-02 13:38 | Outpatient (AMB) | payer OTHER, SELFPAY ==
--- NOTE | 2024-07-02 13:47 | MHC.PC.OV ---
Vital Signs 07/02/24 13:49 Height 6 ft 1 in Weight 320 lb BMI 42.2 BP 118/70 Blood Pressure Location Lt brachial Position Sitting Intake Visit Reasons: bp Intake Note: Patient here for a follow up BP Hotel Supplies Salesperson Required: Yes Hotel Supplies Salesperson Language: Nurse Research Name: Barbara Peterson MD Information Interpreted: non-clinical & clinical Accompanied by: Self / Same As Patient Allergies No Known Allergies [No Known Allergies*] Allergy (Verified 07/02/24 14:15) Medication List - Last Reconciled 07/02/24 by Barbara Peterson MD acetaminophen 650 mg PO Q6H PRN atenolol 50 mg PO DAILY atorvastatin 40 mg PO BEDTIME [compression stockings knee-high 20 mmHg] furosemide 40 mg PO QAM lactulose 15 mL PO DAILY lisinopril 20 mg PO DAILY 90 days oxycodone-acetaminophen 5-325 mg 1 tab PO Q12H PRN 30 days potassium chloride ER (Klor-Con M) 20 mEq PO QAM warfarin 5 mg See Protocol PO DAILY 90 days Tobacco use date assessed: 07/02/24 Fall risk assessment: No Falls in past year Last assessed Fall Risk: 07/02/24 Dental Screening Dental Screen Date: 07/02/24 Did you have a dental visit in the last 12 months?: No Did you have a dental problem in the last 6 months where you did not have access to dental care?: No Was dental information given to patient?: Patient has dentist HPI HPI Comments History of Present Illness Details The patient is a 68-year-old male presenting with a follow-up on multiple chronic health conditions, including hypertension, hyperlipidemia, obesity, metastatic bone disease, and management of a pacemaker for heart failure. The patient has been using lisinopril for blood pressure, and atorvastatin for cholesterol, with latest readings showing satisfactory control. Chronic back pain is managed with Percocet, due for a new prescription following exhaustion in June. Atrial fibrillation and hypertrophic cardiomyopathy are follow by cardiology. A metastasis in the left fifth rib is present, initially discovered through bone scan. Despite a planned antiandrogen initiation, medication was not supplied by the pharmacy. PSA levels have been rising, correlating with a decrease in testosterone. Vitamin D levels are low, and the patient is advised to increase physical activity as the season changes. The patient's overall cardiac device function was recently assured by a email engineer, signifying no immediate concern for pacemaker replacement. [facility] Medical History (Updated 07/02/24 @ 20:16 by Barbara Peterson MD) Prostate cancer Seroma after procedure Peripheral vascular disease Poor circulation Leg edema Morbid obesity Opiate dependence AXEL (obstructive sleep apnea) Lumbar degenerative disc disease PAF (paroxysmal atrial fibrillation) Essential hypertension History of stroke Paroxysmal atrial flutter Ventricular tachyarrhythmia Hypertrophic cardiomyopathy Surgical History H/O colonoscopy Status post aorto-coronary artery bypass graft Status post mitral valve replacement Status post implantation of mitral valve leaflet clip History of cardiac pacemaker (~03/2014) History of cardiac catheterization Family History Father Diabetes Mother No problems noted. Social History Housing: Apartment Alcohol intake: current Alcohol intake frequency: holidays/special occasions only Alcohol type: hard liquor Patient Tobacco Use Status: Never used Tobacco e-Cigarette/Vaping Use: Never Used Second Hand Smoke Exposure: No service: No Current occupational status: unemployed Cognitive needs: Yes Hearing needs: No Vision needs: Yes Questionnaire PHQ-9 Over the last 2 weeks, how often have you been bothered by any of the following problems? 1. Little interest or pleasure in doing things: not at all 2. Feeling down, depressed, or hopeless: not at all 3. Trouble falling or staying asleep, or sleeping too much: not at all 4. Feeling tired or having little energy: not at all 5. Poor appetite or overeating: not at all 6. Feeling bad about yourself - or that you are a failure or have let yourself or your family down: not at all 7. Trouble concentrating on things, such as reading the newspaper or watching television: not at all 8. Moving or speaking so slowly that other people could have noticed. Or the opposite - being so fidgety or restless that you have been moving around a lot more than usual: not at all 9. Thoughts that you would be better off or of hurting yourself in some way: not at all Total score: 0 Depression Screening Interpretation: Negative Depression Screening Done: Yes 54648 - PHQ-9 Billing: Yes Source: Developed by Drs. Anup Nieto, Hilda Terry, Florian Kearney and colleagues, with an educational yumi from [employer]. Thrive Questionnaire Date Thrive assessed: 07/02/24 I am a: Patient What is your living situation today?: I have a steady place to live Within the past 12 months, did the food you bought not last and you didn't have the money to get more?: Never true Within the past 12 months, did you worry whether your food would run out before you got money to buy more?: Never true Do you have trouble paying for medicines?: No Do you have trouble getting transportation to medical appointments?: No Do you have trouble paying your heating and electricity bill?: No Do you have trouble taking care of your child, family member or friend?: No Do you have trouble with day-to-day activities such as bathing, preparing meals, shopping, managing finances, etc.?: No Are you currently unemployed and looking for a job?: No Are you interested in more education?: No Please select the resources that you would like help with: None Currently or been in a relationship where the following occur: No concerns reported THRIVE Score: 0 AUDIT C Alcohol Use Questionnaire (AUDIT-C) 1. How often do you have a drink containing alcohol?: Monthly or less 2. How many drinks containing alcohol do you have on a typical day when you are drinking?: 1 or 2 3. How often do you have six or more drinks on one occasion?: Never Total Score: 1 Score Reviewed/Action Taken: No JOAQUIM-7 AMB Questionnaire JOAQUIM-7 Date JOAQUIM - 7 assessed: 07/02/24 Feeling nervous, anxious, or on edge: 0 = Not at all Not being able to stop or control worryin = Not at all Worrying too much about different things: 0 = Not at all Trouble relaxin = Not at all Being so restless that it is hard to sit still: 0 = Not at all Becoming easily annoyed or irritable: 0 = Not at all Feeling afraid as if something awful might happen: 0 = Not at all Total JOAQUIM-7 score (0-4 normal; 5-9 mild; 10-14 moderate; 15-21 severe): 0 Source: Developed by Drs. Anup Nieto, Hilda Terry, Florian Kearney and colleagues, with an educational yumi from [employer]. JOAQUIM-7 Assessment Billing JOAQUIM-7 Assessment Tool: JOAQUIM-7 Assessment 45894 Review of Systems Const All systems reviewed & are unremarkable except as noted in HPI and below Card Denies chest pain at rest, Denies chest pain with activity, Denies edema, Denies irregular heart rhythm, Denies claudication, Denies dyspnea, Denies dyspnea on exertion, Denies orthopnea, Denies paroxysmal nocturnal dyspnea and Denies slow heart rate Resp Denies cough, Denies dyspnea and Denies dyspnea on exertion Physical exam (Primary Care) Vital Signs: Last Vital Signs BP 118/70 07/02/24 13:49 BMI result Body Mass Index 42.2 Tobacco/Smoking Status: Tobacco use Status Tobacco use date assessed 07/02/24 07/02/24 13:55 Patient Tobacco Use Status Never used Tobacco 07/02/24 13:52 e-Cigarette/Vaping Use Never Used 07/02/24 13:52 PHQ-9: PHQ-9 Score PHQ-9: Total score 0 07/02/24 14:18 Depression Screening Interpretation: Negative Thrive Assessment: Date of Thrive Assessment Date Thrive assessed 07/02/24 07/02/24 13:52 Currently or been in a relationship where the following occur: No concerns reported Resp Effort & Inspection: normal respiratory effort Auscultation: clear to auscultation bilaterally Cardio Jugular venous distension: no JVD Rate: regular rate Rhythm: regular rhythm Heart sounds: S1 normal heart sound present and S2 normal heart sound present Extrem General: Yes full ROM Coding Level of Care Code Est Pt Level 4 (16416) Complex EM visit Add On G2211 Diagnoses Prostate cancer metastatic to intraabdominal lymph node C61; C77.2 Persistent atrial fibrillation I48.19 Morbid obesity E66.01 Uncomplicated opioid dependence F11.20 Substance use status: uncomplicated Hypertrophic cardiomyopathy I42.2 Essential hypertension I10 Additional Codes JOAQUIM-7 Assessment Billing - JOAQUIM-7 Assessment Tool: JOAQUIM-7 Assessment 60978 ([id number]) PHQ-9 - 85283 - PHQ-9 Billing: Yes ([id number]) Time Spent (min) 23 Assessment & Plan Assessment & Plan (1) Prostate cancer metastatic to intraabdominal lymph node: Code(s): C61 - Malignant neoplasm of prostate; C77.2 - Secondary and unspecified malignant neoplasm of intra-abdominal lymph nodes Category: Medical (2) Persistent atrial fibrillation: Code(s): I48.19 - Other persistent atrial fibrillation Category: Medical (3) Morbid obesity: Comment: The patient is relatively inactive. He does have gross obesity. ,He is a simple minded javier . I do not expect him to lose much weight. Code(s): E66.01 - Morbid (severe) obesity due to excess calories Category: Medical (4) Opiate dependence: Code(s): F11.20 - Opioid dependence, uncomplicated Category: Medical Qualifiers: Substance use status: uncomplicated Qualified Code(s): F11.20 - Opioid dependence, uncomplicated (5) Hypertrophic cardiomyopathy: Code(s): I42.2 - Other hypertrophic cardiomyopathy Category: Medical (6) Essential hypertension: Code(s): I10 - Essential (primary) hypertension Category: Medical Plan Monitoring of hypertension and hyperlipidemia continues, with lisinopril and atorvastatin effectively managing these conditions. A Percocet refill will address chronic back pain needs. Immediate action is necessary to resolve issues concerning antiandrogen therapy due to a rise in PSA and decreased testosterone levels. Vitamin D deficiency is recognized, linked to inadequate sunlight exposure. Improvements in physical activity levels are encouraged, particularly as warmer weather allows. The patient should contact pharmacy services urgently to address the unfilled prescription, and maintain follow-ups with specialists as previously determined, notably re-evaluations in August. Patient was informed and verbally consented to the use of an ambient scribe for clinic note documentation during this visit. I extensively discussed ongoing management of the patient?s chronic conditions, highlighting the urgent need to resolve the previously prescribed antiandrogen therapy, given current PSA elevation and testosterone decrease. The patient's vitamin D deficiency was attributed to seasonal factors, underscoring the importance of increased outdoor activity. Encouraged exercise lifestyle modifications must be pursued to address obesity, emphasizing patient?s anticipated compliance as weather improves. Current Percocet usage was reassessed in alignment with chronic back pain findings, preparation for a new prescription being agreed upon. Including the status of his pacemaker, the battery?s life expectancy alleviated immediate replacement concerns, favoring standard cardiology surveillance. Medications: Refilled oxycodone-acetaminophen 5-325 mg Partial Fill upon patient request. 1 tab PO Q12H PRN 60 tabs 0RF pain 30 days M51.36 - Other intervertebral disc degeneration, lumbar region Patient Instructions: - Follow up with pharmacy immediately for antiandrogen prescription. - Continue lisinopril and atorvastatin, watch for blood pressure and cholesterol. - Begin a daily walking routine to aid weight management. - Refill Percocet prescription if needed. - Increase safe sun exposure to improve vitamin D levels. - Maintain follow-up appointments with specialists, notably in August. - Reach out for further concerns regarding any treatment regimen or symptom changes.
[2024-07-02 13:49] VITALS: BP 118/70; BMI 42.2
--- OUTSIDE RECORDS SUMMARY | 2024-07-02 17:11 | XMS_ITS | Clinical Summary ---
Author Organization [facility] ity Address [address] [place] [address] Care Team Providers Care Weight Count Operator Name Role Phone Unavailable Primary Care Provider [...]
--- OUTSIDE RECORDS SUMMARY | 2024-07-02 17:12 | XMS_ITS | Data Portability ---
Author Organization [place] [facility] Address [address] [place] [address] Care Team Providers Care Graphics Editor Name Role Phone SANGITA REID Primary Care Provider [phone] Assessment Encounter Date Assessment Date Assessment LastModified by Organization Details LastModified Time 01/18/2022 01/18/2022 66 YO M patient establishing care with . On 12/14 he had open heart surgery at [facility] the transferred to [facility] facility. His sternotomy surgical incision has healed well. However he has a left medial lower leg surgical incision which is draining clear fluid. He was seen by his regular dance historian located in [place] Dr. Ramirez who did not assess his [...] departure. Time On Scene with Patient: 01:11:41 [email or web address] Not available 01/18/2022 14:37:44 Plan of Treatment [...] By Organization Details Last Modified Time 01/18/2022 [id number] Thank you for yo ur visit with [facility] today. You were seen today for treatment [...] in your condition between 8am-10pm, please call [facility] at [phone] to help navigate your care. 3 Not available 01/18/2022 13:18:22 Reason for Referral None Reported. Procedures Surgical History Date Name Laterality Status Provider Name and Address Organization Details Recorded Time open heart surgery completed October FREDO Engel [address], [place], [address], [place] [facility] 01/18/2022 13:26:42 Imaging Results None recorded. Procedure Notes None recorded. Medical Equipment None Reported. Allergies No known drug allergies Medications Name Sig Start Date Stop Date Status Note LastModified by Organization Details LastModified Time furosemide 40 mg tablet TOME MARY TABLETA TODOS LOS D EN LA MA SAGNITA active Not Available Not Available No t [...] Smoker October FREDO Engel [address], [place], [address], [place] [facility] 01/18/2022 13:24:50 Do You Have An Advance Directive? Yes [email or web address] Information not available 01/18/2022 What Is Your Level Of Alcohol Consumption? Occasional [email or web address] Information not available 01/18/2022 Is Blood Transfusion Acceptable In An Emergency? Yes [email or web address] Information not available 01/18/2022 What Is Your Code Status? Full Code [email or web address] Information not available 01/18/2022 Within The Past 12 Months, Has It Happened That The Food You Bought Just Didn't Last And You Didn't Have Money To Get More. No [email or web address] Information not available 01/18/2022 Within The Past 12 Months, Have You Worried That Your Food Would Run Out Before You Got Money To Buy More. No [email or web address] Information not available 01/18/2022 Fall Risk: Do You Feel Unsteady When Standing Or Walking? No [email or web address] Information not available 01/18/2022 We Know That How And When People Interact With Friends And Family Can Be Very Different From Person To Person. How Often Do You Have The Opportunity To See Or Talk To People That You Care About And Feel Close To? (Ex: Talking To Friends On The Phone Or Visiting Friends Or Family Or Going To Orthodoxy Or Club Meetings) Choose Not To Answer This Question [email or web address] Information not available 01/18/2022 Excessive Alcohol Or Drug Use No [email or web address] Information not available 01/18/2022 Does This Patient Have A PCP? Yes [email or web address] Information not available 01/18/2022 Is This Patient In Hospice? No [email or web address] Information not available 01/18/2022 We Know From Many Of Our Patients That Covering All Of Their Costs Can Be Difficult At Times. This Can Cause Stress And Impact Health. In The Past Year, Have You Been Unable To Get Any Of The Following When It Was Really Needed? No [email or web address] Information not available 01/18/2022 What Is Your Housing Situation Today? I Have Housing [email or web address] Information not available 01/18/2022 Would You Like Help Connecting To Resources? None [email or web address] Information not available 01/18/2022 Do You Use Any Illicit Or Recreational Drugs? No [email or web address] Information not available 01/18/2022 Sex: Unknown Functional Status None recorded. Mental Status None recorded. Family History Nothing Reported. Medical History Condition Response Coronary Artery Disease Y Parkinson's Disease N COPD N Depression N Hypothyroidism N A-fib N Diabetes N CHF N Cancer Y Dementia N Stroke N Asthma Y High Cholesterol Y Rheumatoid Arthritis N Pulmonary Embolism N Hypertension Y Osteoporosis N Kidney Disease N Past Encounters Encounter ID Performer Location Encounter Start Date Encounter Closed Date Diagnosis/Indication Diagnosis SNOMED-CT Code Diagnosis ICD10 Code Diagnosis Note [id number] October FREDO Engel [facility] [address] [place] [address] 01/18/2022 13:08:34 01/19/2022 07:50:40 Surgical incision wound of skin 4929332026 00 R23.8 Health Concerns Section Related Observation LastModified by Organization Detai ls LastModified Time None Recorded Concern Status LastModified by Organization Details LastModified Time None Recorded Advance Directives Directive Y: Payers Encounter Date Sequence Insurance Name Policy Number Policy Ma Covered Member ID Ma Member ID Guarantor Name 01/18/2022 1 [place] [employer] Andres Weiss [id number] Andres Weiss 01/18/2022 2 [place] [facility] Andres Weiss [id number] Andres Weiss Notes Date Note Type Note Provider Name and Address Organization Details Recorded Time 01/18/2022 [email or web address] 66 YO M patient establishing care with . On 12/14 he had open heart surgery at [facility] the transferred to [facility] facility. His sternotomy surgical incision has healed well. However he has a left medial lower leg surgical incision which is draining clear fluid. He was seen by his regular dance historian located in [place] Dr. Ramirez who did not assess his leg wound because it wasn't draining at the time . Clear drainage of surgical incision began yesterday at 4 p.m. [facility] contacted for assessment. It was a scab and then it came off . October FREDO Engel [address] [place], [address], [place] [facility] 01/30/2022 10:04:41
== END 2024-07-02 14:29 | disposition home or self-care (01) ==
PROVIDERS: PCP Internal Medicine; Visit Provider Internal Medicine
DX: I48.19 Other persistent atrial fibrillation (principal); C61 Malignant neoplasm of prostate; C77.2 Secondary and unspecified malignant neoplasm of intra-abdominal lymph nodes; E66.01 Morbid (severe) obesity due to excess calories; F11.20 Opioid dependence, uncomplicated; I42.2 Other hypertrophic cardiomyopathy; Z68.41 Body mass index [BMI] 40.0-44.9, adult; I10 Essential (primary) hypertension

== ENCOUNTER → 2024-07-02 13:38 | Outpatient (BNVA) | payer OTHER, SELFPAY | PROVIDERS: PCP Internal Medicine; Visit Provider Internal Medicine | DX: C61 Malignant neoplasm of prostate (principal); C77.2 Secondary and unspecified malignant neoplasm of intra-abdominal lymph nodes; I48.19 Other persistent atrial fibrillation; E66.01 Morbid (severe) obesity due to excess calories; F11.20 Opioid dependence, uncomplicated; I42.2 Other hypertrophic cardiomyopathy; I10 Essential (primary) hypertension | CPT/HCPCS: 96127; 99212 ==

== ENCOUNTER 2024-07-26 10:24 | Outpatient (AMB) | payer OTHER, SELFPAY ==
[2024-07-26 10:32] LABS: Prothrombin Time Whole Bld POC 50.1 sec (11.1-13.5); ~PT, ~INR - Anti Coag Clinic 4.2 (0.9-1.1)
--- NOTE | 2024-07-26 10:38 | MHC.OFFVISCO ---
Intake Intake Visit Reasons: Anticoagulation Allergies No Known Allergies [No Known Allergies*] Allergy (Verified 07/26/24 10:24) Medication List - Last Reconciled 07/26/24 by Hanna Magaña RN acetaminophen 650 mg PO Q6H PRN atenolol 50 mg PO DAILY atorvastatin 40 mg PO BEDTIME [compression stockings knee-high 20 mmHg] darolutamide (Nubeqa) 600 mg PO BID furosemide 40 mg PO QAM lactulose 15 mL PO DAILY lisinopril 20 mg PO DAILY 90 days oxycodone-acetaminophen 5-325 mg 1 tab PO Q12H PRN 30 days potassium chloride ER (Klor-Con M) 20 mEq PO QAM warfarin 5 mg See Protocol PO DAILY 90 days Nursing Note INR 4.2 out of therapeutic range Medications and supplements reviewed Patient status: PSA level elevated and has to start medication to treat it, other lozano feels well Medications or supplements: Nubeq - does not interact with warfarin per uptodate , micromedex and google search Diet: good - may not havehad usual greens Denies any signs and symptoms of bleeding or clotting or unusual bruising Bleeding, bruising, clotting discussed Nutritional guidance given: review food list weekly - eat greens weekly Dose: decrease dose to 2.5mg today and eat greens then resume 7.5mg monday/ 5mg x 6 days F/U INR Date: 08/30/2024 per pt request - refuse sooner appt ?? Patient verbalizing understanding of instructions given with read back Anti-Coag Initial Assessment Social Hx Patient Tobacco Use Status: Never used Tobacco alcohol intake: current Alcohol intake frequency: holidays/special occasions only Cardiovascular Hx: HTN, Arrhythmias and Cardiomyopathy Musculoskeletal Hx: Other Blood Disorder Hx: Hyperlipidemia Hx: Prostate Neurological Hx: Stroke/TIA Cancer HX: Yes (prostate) Psych. Illness/Depression: No Coding Level of Care Code Est Patient Level 1 Diagnoses Current use of anticoagulant therapy Z79.01 Results AMB INR Fingerstick AMB INR Fingerstick 4.1 Last Edit by Hanna Magaña RN on 07/26/24 10:31 manual entry no interfacing AMB INR Fingerstick AMB INR Fingerstick 4.2 Last Edit by Hanna Magaña RN on 07/26/24 10:32 Assessment & Plan Assessment & Plan (1) Current use of anticoagulant therapy: Code(s): Z79.01 - terminal gauger (current) use of anticoagulants Category: Medical
== END 2024-07-26 10:43 | disposition home or self-care (01) ==
LOC: HO.ACS 10:24
PROVIDERS: PCP Internal Medicine; Visit Provider Internal Medicine Medical Oncology
DX: Z79.01 Long term (current) use of anticoagulants (principal)

== ENCOUNTER → 2024-07-26 10:24 | Outpatient (BNVA) | payer OTHER, SELFPAY | PROVIDERS: PCP Internal Medicine; Visit Provider Internal Medicine Medical Oncology | DX: Z95.2 Presence of prosthetic heart valve (principal); Z79.01 Long term (current) use of anticoagulants; Z51.81 Encounter for therapeutic drug level monitoring | CPT/HCPCS: 85610; 99211 ==

== ENCOUNTER 2024-08-30 09:44 | Outpatient (AMB) | payer OTHER, SELFPAY ==
--- NOTE | 2024-08-30 09:51 | MHC.OFFVISCO ---
Intake Intake Visit Reasons: Anticoagulation Allergies No Known Allergies [No Known Allergies*] Allergy (Verified 08/30/24 09:46) Medication List - Last Reconciled 08/30/24 by Brissa Daniels RN acetaminophen 650 mg PO Q6H PRN atenolol 50 mg PO DAILY atorvastatin 40 mg PO BEDTIME [compression stockings knee-high 20 mmHg] darolutamide (Nubeqa) 600 mg PO BID furosemide 40 mg PO QAM lactulose 15 mL PO DAILY lisinopril 20 mg PO DAILY 90 days oxycodone-acetaminophen 5-325 mg 1 tab PO Q12H PRN 30 days potassium chloride ER (Klor-Con M) 20 mEq PO QAM warfarin 5 mg See Protocol PO DAILY 90 days Nursing Note INR: 3.6 out of therapeutic range of 2.5-3.0 Pt states he's eating more fruits Medications and supplements reviewed No changes in health, diet, medications, or supplements, Denies any signs and symptoms of bleeding or bruising or clotting. Bleeding, bruising, clotting discussed Nutritional guidance given top have a serving of greens today Dose: 5mg daily F/U INR: 4 weeks Patient verbalizes understanding of instructions given Anti-Coag Initial Assessment Social Hx Patient Tobacco Use Status: Never used Tobacco alcohol intake: current Alcohol intake frequency: holidays/special occasions only Cardiovascular Hx: HTN, Arrhythmias and Cardiomyopathy Musculoskeletal Hx: Other Blood Disorder Hx: Hyperlipidemia Hx: Prostate Neurological Hx: Stroke/TIA Cancer HX: Yes (prostate) Psych. Illness/Depression: No Coding Level of Care Code Est Patient Level 1 Diagnoses Current use of anticoagulant therapy Z79.01 Results AMB INR Fingerstick AMB INR Fingerstick 3.6 Last Edit by Brissa Daniels RN on 08/30/24 09:51 interface delay Assessment & Plan Assessment & Plan (1) Current use of anticoagulant therapy: Code(s): Z79.01 - long term care administrator (current) use of anticoagulants Category: Medical
[2024-08-30 09:58] LABS: Prothrombin Time Whole Bld POC 43.4 sec (11.1-13.5); ~PT, ~INR - Anti Coag Clinic 3.6 (0.9-1.1)
--- OUTSIDE RECORDS SUMMARY | 2024-08-30 10:31 | XMS_ITS | Clinical Summary ---
Author Organization [employer] [facility] ity Address [address] [place] [address] Care Team Providers Care Twisting Operator Name Role Phone Unavailable Primary Care [...] - 2023-2 5 season) 2023 Influenza Vaccine (Season Ended) 2024 RSV Immunization Adult Patie nts (1 - 1-dose 75+ series) 07/11/2031 HIB [...] age to complete this topic Meningococcal B Vaccine Aged Out No l onger eligible based on patient's age to complete this topic RSV Immunization Patients Un temo 20 months Aged Out No longer eligible b ased on patient's age to complete this topic Varicella Vaccines Aged Out No longer eligible based on patient's age to complete this topic
--- OUTSIDE RECORDS SUMMARY | 2024-08-30 10:31 | XMS_ITS | Data Portability ---
Author Organization [place] - [facility] Address [address] [place] [address] Care Team Providers Care Medical Typist Name Role Phone SANGITA REID Primary Care Provider Assessment Encounter Date Assessment Date Assessment LastModified by Organization Details LastModified Time 01/18/2022 01/18/2022 66 YO M patient establishing care with . On 12/14 he had open heart surgery at [facility] the transferred to [facility] facility. His sternotomy surgical incision has healed well. However he has a left medial lower leg surgical incision which is draining clear fluid. He was seen by his regular bladder blower located in [place] Dr. Ramirez who did not assess his [...] departure. Time On Scene with Patient: 01:11:41 [email or web address] Not available 01/18/2022 14:37:44 Plan of Treatment [...] By Organization Details Last Modified Time 01/18/2022 [id number] Thank you for yo ur visit with [facility] today. You were seen today [...] in your condition between 8am-10pm, please call [facility] at [phone] to help navigate your care. [email or web address] 3 Not available 01/18/2022 13:18:22 Reason for Referral None Reported. Procedures Surgical History Date Name Laterality Status Provider Name and Address Organization Details Recorded Time open heart surgery completed October FREDO Engel [address], [place], [address], [place] [facility] 01/18/2022 13:26:42 Imaging Results [...] Smoker October FREDO Engel [address], [place], [address], [place] [facility] 01/18/2022 13:24:50 Do You Have An Advance Directive? Yes [email or web address] Information not available 01/18/2022 What Is Your Level Of Alcohol Consumption? Occasional Information not available 01/18/2022 Is Blood Transfusion Acceptable In An Emergency? Yes [email or web address] Information not available 01/18/2022 What Is Your Code Status? Full Code [email or web address] Information not available 01/18/2022 Within The Past 12 Months, Has It Happened That The Food You Bought Just Didn't Last And You Didn't Have Money To Get More. No [email or web address] Information not available 01/18/2022 Within The Past 12 Months, Have You Worried That Your Food Would Run Out Before You Got Money To Buy More. No [email or web address] Information not available 01/18/2022 Fall Risk: Do You Feel Unsteady When Standing Or Walking? No [email or web address] Information not available 01/18/2022 We Know That How And When People Interact With Friends And Family Can Be Very Different From Person To Person. How Often Do You Have The Opportunity To See Or Talk To People That You Care About And Feel Close To? (Ex: Talking To Friends On The Phone Or Visiting Friends Or Family Or Going To Yazidi Or Club Meetings) Choose Not To Answer This Question [email or web address] Information not available 01/18/2022 Excessive Alcohol Or Drug Use No Information not available 01/18/2022 Does This Patient Have A PCP? Yes [email or web address] Information not available 01/18/2022 Is This Patient In Hospice? No [email or web address] Information not available 01/18/2022 We Know From Many Of Our Patients That Covering All Of Their Costs Can Be Difficult At Times. This Can Cause Stress And Impact Health. In The Past Year, Have You Been Unable To Get Any Of The Following When It Was Really Needed? No [email or web address] Information not available 01/18/2022 What Is Your Housing Situation Today? I Have Housing [email or web address] Information not available 01/18/2022 Would You Like Help Connecting To Resources? None [email or web address] Information not available 01/18/2022 Do You Use Any Illicit Or Recreational Drugs? No [email or web address] Information not available 01/18/2022 Sex: Unknown Functional Status None recorded. Mental Status None recorded. Family History Nothing Reported. Medical History Condition Response Diabetes N Coronary Artery Disease Y CHF N Parkinson's Disease N Cancer Y Stroke N Dementia N Asthma Y COPD N Depression N Hypothyroidism N High Cholesterol Y Rheumatoid Arthritis N Pulmonary Embolism N Hypertension Y A-fib N Osteoporosis N Kidney Disease N Past Encounters Encounter ID Performer Location Encounter Start Date Encounter Closed Date Diagnosis/Indication Diagnosis SNOMED-CT Code Diagnosis ICD10 Code Diagnosis Note [id number] October FREDO Engel [facility] [address] [place] [address] 01/18/2022 13:08:34 01/19/2022 07:50:40 Surgical incision wound of skin [id number] 00 R23.8 Health Concerns Section Related Observation LastModified by Organization Detai ls LastModified Time None Recorded Concern Status LastModified by Organization Details LastModified Time None Recorded Advance Directives Directive Y: Payers Encounter Date Sequence Insurance Name Policy Number Policy Ma Covered Member ID Ma Member ID Guarantor Name 01/18/2022 1 [place] [employer] Andres Weiss [id number] Andres Weiss 01/18/2022 2 [place] [facility] Andres Weiss [id number] Andres Weiss Notes Date Note Type Note Provider Name and Address Organization Details Recorded Time 01/18/2022 [email or web address] 66 YO M patient establishing care with . On 12/14 he had open heart surgery at [facility] the transferred to [facility] facility. His sternotomy surgical incision has healed well. However he has a left medial lower leg surgical incision which is draining clear fluid. He was seen by his regular bladder blower located in [place] Dr. Ramirez who did not assess his leg wound because it wasn't draining at the time . Clear drainage of surgical incision began yesterday at 4 p.m. [facility] contacted for assessment. It was a scab and then it came off . October FREDO Engel [address] [place], [address], [place] [facility] 01/30/2022 10:04:41
== END 2024-08-30 09:54 | disposition home or self-care (01) ==
LOC: HO.ACS 09:44
PROVIDERS: PCP Internal Medicine; Visit Provider Internal Medicine Medical Oncology
DX: Z79.01 Long term (current) use of anticoagulants (principal)

== ENCOUNTER → 2024-08-30 09:44 | Outpatient (BNVA) | payer OTHER, SELFPAY | PROVIDERS: PCP Internal Medicine; Visit Provider Internal Medicine Medical Oncology | DX: Z95.2 Presence of prosthetic heart valve (principal); Z79.01 Long term (current) use of anticoagulants; Z51.81 Encounter for therapeutic drug level monitoring | CPT/HCPCS: 85610; 99211 ==

== ENCOUNTER 2024-09-06 11:08 | Outpatient (AMB) | payer OTHER, SELFPAY ==
--- NOTE | 2024-09-06 11:33 | A.OFFVIS_ITS ---
Intake Visit Reasons: 3M Gn[facility]/Labs(labs?) Intake Note: Patient is present for 3 month follow up/Labs Urology Medication:NONE Antibiotic Allergy:NONE Blood Thinner:[facility] [employer] Required: No Allergies No Known Allergies [No Known Allergies*] Allergy (Verified 09/06/24 11:34) HPI Comments Details: Andres is a very pleasant male. He is a patient of Dr. Peterson. He is seen for the following urologic conditions - prostate cancer - laura recurrence - erectile dysfunction 09/22 [facility] today, on darolutamide. No lab work done. Lab work ordered. Has had some fatigue. Repeat PET-CT since 1 year since prior imaging [facility] to be done in 2 weeks and lab work and imaging can be reviewed 06/25 PSA 9 T 9 04/23 PSA 7.4 T 11 Bone scan result pending - left rib maintains activity Add antiandrogen 3m f/u labs 01/22 PSA 7.1 T 177 Restart [facility] 09/21 PSA 3.8 PET-CT - complete resolution of PSMA avid pelvic lymphadenopathy, new left rib activity PSMA avid right internal iliac and presacral lymphadenopathy present at several sites on the 07/27/2021 prior study are not present on the current study 11/20 - PSA <0.1, T1 23 Restart tadalafil 10 mg daily 01/20 mitral valve prolapse with replacement at [facility] - dislodged mitral clip into right ostia Prostate cancer: [employer] [place] 4 + 4, group 4, XRT with hormones 2016 - recurrence 2021 pelvic laura with focal XRT and hormones 09/19 PET-CT scan shows positive laura disease along pelvic and retroperitoneal wall Radiation boost therapy with Dr. Walters at [facility] and 6m hormones Prostate cancer was diagnosed 03/2016 Dr Russo. Diagnosis was reached by needle biopsy, for elevated PSA, PSA at diagnosis 35. The Luis Enrique grade is 9/12 cores , 4+4 = 8 and , 4+3 = 7 > 40% in all cores. TNM Classification of Malignant Tumours (TNM) T2b. The D'Ankit (NCCN) risk category is High Risk (PSA > 20, Gl 8+, T3) - CAK nomagram pre treatment - 3% OCD, 95% FIDELINA, 70% LNI. Initial therapy included Primary treatment - bicalutamide, hormones 05/05/16 - GnRH , External beam radiation with short term hormonal ablation complete - [facility] Recent labs included a PSA (prostate-specific antigen) 05/17 on bicalutamide only - 4.6, T 272 07/15 a PSA (prostate-specific antigen) 0.18, T 12 02/14 , a PSA (prostate-specific antigen) 0.22, , T 12 07/16 PSA 0.2, 10/16 PSA 0.15, 02/15 PSA 0.15 T 193 07/17 PSA 0.5 T 245, 01/17 PSA 1.2 T 260 05/20 0.5 T 240, 10/18 1.7 - 03/20 1.9 - 06/21 1.4, 12/19 2.4, 03/21 2.5, 07/20 4.3, 09/19 3.5, 05/23 <0.1 Recent imaging included 04/15 , a CT (computed tomography) scan - pelvic node 04/15 , a bone scan - negative 07/15 , a DEXA scan - normal. - 07/[address] with laura disease along pelvic basin to retroperitoneal wall PFSH Medical History Prostate cancer Seroma after procedure Peripheral vascular disease Poor circulation Leg edema Morbid obesity Opiate dependence AXEL (obstructive sleep apnea) Lumbar degenerative disc disease PAF (paroxysmal atrial fibrillation) Essential hypertension History of stroke Paroxysmal atrial flutter Ventricular tachyarrhythmia Hypertrophic cardiomyopathy Surgical History H/O colonoscopy Status post aorto-coronary artery bypass graft Status post mitral valve replacement Status post implantation of mitral valve leaflet clip History of cardiac pacemaker (~03/2014) History of cardiac catheterization Family History Father Diabetes Mother No problems noted. Social History Housing: Apartment Alcohol intake: current Alcohol intake frequency: holidays/special occasions only Alcohol type: hard liquor Patient Tobacco Use Status: Never used Tobacco e-Cigarette/Vaping Use: Never Used Second Hand Smoke Exposure: No service: No Current occupational status: unemployed Cognitive needs: Yes Hearing needs: No Vision needs: Yes Review of Systems Const Denies chills and Denies fever(s) Card Reports no additional complaints and Denies syncope Resp Denies cough GI Denies abdominal pain and Denies heartburn Reports as per HPI and Denies change in libido Neuro Denies syncope Psych Denies change in libido Endo Denies change in libido Physical Exam Const General: cooperative, healthy appearing, comfortable and no acute distress Orientation/consciousness: patient oriented x3 HEENT Face and sinus: Yes normal facial exam Mouth: moist mucous membranes Neck Neck: Yes normal visual inspection, Yes full ROM and Yes trachea midline Chest Chest palpation & inspection: normal inspection of the chest Resp Effort & Inspection: normal respiratory effort, able to speak in complete sentences and no respiratory distress GI Inspection: Yes normal to inspection Back/Spine/Pelvis Cervical Spine: normal cervical lordosis Thoracic/Lumbar Spine: thoracic and lumbar spine normal to inspection Skin General skin exam: no rashes or lesions noted Neuro General: patient oriented x3, gait normal, tone normal and moves all extremities Extrem General: Yes normal to inspection and Yes capillary refill normal Assessment & Plan Assessment & Plan (1) Prostate cancer metastatic to intraabdominal lymph node: Code(s): C61 - Malignant neoplasm of prostate; C77.2 - Secondary and unspecified malignant neoplasm of intra-abdominal lymph nodes Category: Medical Plan PET-CT imaging Lab work today Three-month follow-up repeat lab work Two week follow-up [facility] Orders: Orders PSA,Total (Free>4and<10) Today C61 - Malignant neoplasm of prostate, C77.2 - Secondary and unspecified malignant neoplasm of intra-abdominal lymph nodes Prostate Specific Antigen 3 Months C61 - Malignant neoplasm of prostate, C77.2 - Secondary and unspecified malignant neoplasm of intra-abdominal lymph nodes PET CT fusion skull to thigh Today C61 - Malignant neoplasm of prostate, C77.2 - Secondary and unspecified malignant neoplasm of intra-abdominal lymph nodes Testosterone, Total 3 Months C61 - Malignant neoplasm of prostate, C77.2 - Secondary and unspecified malignant neoplasm of intra-abdominal lymph nodes Patient Instructions: This note is constructed using voice recognition software. While every effort has been made to ensure accuracy catapult and arresting gear officer errors may have been included. Imaging studies, laboratory and physical exam results were discussed and revi ewed in detail. No major barriers to patient understanding were identified. An opportunity to ask questions regarding the treatment plan was provided. All questions were answered. The patient expressed understanding and agreement with the above treatment plan. The patient is aware they should contact our office by phone for worsening of their current condition or the appearance of new urologic symptoms. Compliance is encouraged with any medications and followup testing that is ordered. It is a privilege to participate in the urologic care of your patient. If you have any questions or concerns regarding treatment for the above conditions, or other urologic issues, please do not hesitate to contact me. The office telephone contact is [phone]. Sincerely, Dr Jian Russo MD, [facility] - Urology Compassionate Specialist Care for the Genitourinary System Coding Level of Care Code Est Pt Level 4 (32340) Complex EM visit Add On G2211 Diagnoses Prostate cancer metastatic to intraabdominal lymph node C61; C77.2
--- OUTSIDE RECORDS SUMMARY | 2024-09-06 11:40 | XMS_ITS | Encounter Summary ---
Author Organization [employer] Address [address] [place] [address] Care Team Providers Care Clinical Programmer Name Role Phone Barbara Peterson MD Primary Care Provider [phone] Reason for Visit * Reason Comments Shortness of Breath EMS reports patient has been having increased SOB and high BP today. Hx of A-fib, pacemaker and HTN. V/S are stable for EMS. EKG A-fib, none diagnostic for STEMI. * Auth/Cert (Routine) Specialty Diagnoses / Procedures Referred By Contac t Referred To Contact Diagnoses Shortness of breath SOB (shortness of breath) Acute systolic congestive heart failure (CMS/HCC V24, CMS/HCC V28) / Procedures SC COMPREHENSIVE AUDIOMETRY THRESHOLD EVALUATION AND SPEECH RECOGNITION Willam Jovel MD [address] [place] [id number] Phone: tel: fax: [facility] [address] [place] [phone] Phone: tel: Referral ID Status Reason Start Date Expiration Date Visits Re quested Visits Authorized [id number] 1 1 Encounter Details Date Type Department Care Team (Latest Contact Info) Description 08/31/2024 8:24 AM EDT - 09/01/2024 12:57 PM EDT Hospital Encounter [facility] [address] [place] [address] Agustin Potter, DO [address] [place] [address] Willam Jovel MD [address] [place] [phone] Augustine Zendejas MD [address] [facility] [address] [place] [address] Shortness of breath (Primary Dx); Acute systolic congestive heart failure (CMS/HCC V24, CMS/HCC V28) Discharge Disposition: Home or Self Care Social History Tobacco Use Types Packs/Day Years Used Date Smoking Tobacco: Never Smokeless Tobacco: Never Tobacco Cessation:Counseling Given: Not Answered Interpersonal Safety Answer Date Record ed Physical Abuse 08/31/2024 Verbal Abuse 08/31/2024 Sex and Gender Information Value Date Recorded Sex Assigned at Not on file Legal Sex Male 1:14 PM EST Gender Identity Not on file Sexual Orientation Not on file documented as of this encounter Last Filed Vital Signs Vital Sign Reading Time Taken Comments Blood Pressure 129/84 09/01/2024 7:59 AM EDT Pulse 81 09/01/2024 7:59 AM EDT Temperature 36.5 ??C (97.7 ??F) 09/01/2024 7:59 AM ED T Respiratory Rate 20 09/01/2024 7:59 AM EDT Oxygen Saturation 100% 09/01/2024 7:59 AM EDT Inhaled Oxygen Concentration - - Weight 147 kg (325 lb) 08/31/2024 8:35 AM EDT Height 185.4 cm (6' 1 ) 08/31/2024 8:35 AM EDT Body Mass Index 42.88 08/31/2024 8:35 AM EDT documented in this encounter Discharge Summaries * Augustine Zendejas MD - 09/01/2024 9:53 AM EDT Images from the original note were not included. [facility]OLAND DISCHARGE SUMMARY Patient Information Andres Weiss : 1955 [69 y.o.] Admitting Provider Willam Jovel MD Discharge Provider Augustine Zendejas MD, Augustine Zendejas MD Primary Care Physician Barbara Peterson MD Admission Date 08/31/2024 Discharge Date 09/01/2024 Summary of Hospital Problems Primary Discharge Diagnosis: HTN Secondary Discharge Diagnosis: Chronic chf with preserved Discharge Destination: Home Code Status at Discharge: Full Code - Default Hospital Course Summary 69-year-old male coming into the hospital with concern of elevated blood pressure reading at home. Patient denies to me any chest pain or shortness of breath. He was admitted for overnight monitoring Hypertension, patient reported one of the reading was elevated, blood pressure has been stable while in the hospital. No evidence of heart failure based on exam discussed with patient he has chronic lower extremity edema and the presentation has not changed. He is on atenolol which will be continued, he is on Lasix 40 mg daily which will be continued. Chest x-ray did not show any evidence of pulmonary congestion. Patient was not hypoxic and his lung exam was unremarkable Atrial fibrillation with secondary hypercoagulable state on Coumadin. Continue with atenolol and Coumadin. Essential hypertension. Atenolol and lisinopril. Prostate cancer. Resume home meds. Dispo, home Follow-Up Instructions and Recommendations Primary care provider (PCP) Barbara Peterson MD [address] [place] [address] , [address] [facility] D/B/A: [facility] [employer] [phone] Discharge Procedure Orders Discharge Diet: Cardiac Heart Healthy Diet (Low Cholesterol / Low Fat / No Added Salt) Order Specific Question Answer Comments Discharge diet you should follow at home Cardiac Heart Healthy Diet (Low Cholesterol / Low Fat / NoAdded Salt) Primary care provider (PCP) Order Specific Question Answer Comments Follow-Up as Needed Follow-Up as Needed There are no outpatient Patient Instructions on file for this admission. Discharge Medications Your medication list CONTINUE taking these medications Instructions Last Dose Given Next Dose Due atenoloL 50 mg tablet Commonly known as: TENORMIN Take 1 tablet (50 mg total) by mouth 1 (one) time each day. atorvastatin 40 mg tablet Commonly known as: LIPITOR Take 1 tablet (40 mg total) by mouth at bedtime. ferrous sulfate 325 mg (65 mg elemental iron) tablet Take 1 tablet (325 mg total) by mouth 1 (one) time each day. furosemide 40 mg tablet Commonly known as: LASIX Take 1 tablet (40 mg total) by mouth 1 (one) time each day. lisinopriL 20 mg tablet Commonly known as: PRINIVIL,ZESTRIL Take 1 tablet (20 mg total) by mouth 1 (one) time each day. Nubeqa 300 mg tablet Generic drug: darolutamide Take 1 tablet (300 mg total) by mouth 2 (two) times a day oxyCODONE-acetaminophen 5-325 mg per tablet Commonly known as: PERCOCET Take 1 tablet by mouth every 6 (six) hours if needed for moderate pain or severe pain. warfarin 5 mg tablet Commonly known as: COUMADIN Take by mouth 1 (one) time each day with dinner. Physical Exam at time of Discharge Physical Exam Constitutional: Appearance: Normal appearance. HENT: Head: Normocephalic and atraumatic. Mouth/Throat: Mouth: Mucous membranes are moist. Pharynx: Oropharynx is clear. Eyes: Extraocular Movements: Extraocular movements intact. Pupils: Pupils are equal, round, and reactive to light. Cardiovascular: Rate and Rhythm: Normal rate and regular rhythm. Pulses: Normal pulses. Heart sounds: Normal heart sounds. Pulmonary: Effort: Pulmonary effort is normal. Breath sounds: Normal breath sounds. Abdominal: General: Abdomen is flat. Bowel sounds are normal. There is no distension. Palpations: Abdomen is soft. Tenderness: There is no abdominal tenderness. Musculoskeletal: General: Normal range of motion. Cervical back: Normal range of motion and neck supple. Right lower leg: No edema. Left lower leg: No edema. Skin: Capillary Refill: Capillary refill takes less than 2 seconds. Neurological: General: No focal deficit present. Mental Status: He is alert and oriented to person, place, and time. Mental status is at baseline. Motor: No weakness. Gait: Gait normal. Psychiatric: Mood and Affect: Mood normal. Behavior: Behavior normal. Vitals Visit Vitals BP 129/84 (BP Location: Left arm, Patient Position: Sitting) Pulse 81 Temp 36.5 ??C (97.7 ??F) (Oral) Resp 20 Temp (24hrs), Av.4 ??C (97.6 ??F), Min:36.1 ??C (97 ??F), Max:36.9 ??C (98.4 ??F) Body mass index is 42.88 kg/m??. No results found for: PTWT , PTHT documented in this encounter Medications at Time of Discharge atenoloL (TENORMIN) 50 mg tablet Take 1 tablet (50 mg total) by mouth 1 (one) time each day. atorvastatin (LIPITOR) 40 mg tablet Take 1 tablet (40 mg total) by mouth at bedtime. ferrous sulfate 325 mg (65 mg elemental iron) tablet Take 1 tablet (325 mg total) by mouth 1 (one) time each day. furosemide (LASIX) 40 mg tablet Take 1 tablet (40 mg total) by mouth 1 (one) time each day. 01/02/2022 lisinopriL (PRINIVIL,ZESTRIL ) 20 mg tablet Take 1 tablet (20 mg total) by mouth 1 (one) time each day. Nubeqa 300 mg tablet Take 1 tablet (300 mg total) by mouth 2 (two) times a day 08/22/2024 oxyCODONE-acetami nophen (PERCOCET) 5-325 mg per tablet Take 1 tablet by mouth every 6 (six) hours if needed for moderate pain or severe pain. warfarin (COUMADIN) 5 mg tablet Take by mouth 1 (one) time each day with dinner. documented as of this encounter Discharge Disposition Disposition Code Departure Means Destination Comment s Home or Self Care Walk-out Home documented in this encounter Progress Notes * Brandee Gonzáles RN - 09/01/2024 9:55 AM EDT Patient discharging home no services 09/01/24 0955 Transportation Final Discharge Disposition Home or Self Care * Mendez Mascorro RN - 09/01/2024 4:28 AM EDT Goals: Problem: Falls: Fall Risk (Adult IP ) Goal: (Goal) Patient will experience maximum safety and reduce risk for falls. Outcome: Progressing Goal: Patient will not fall or injure themselves during hospitalization. Outcome: Progressing * Deena Dwyer RN - 08/31/2024 5:40 PM EDT Goals: Identify possible barriers to meeting goals/advancing plan of care: Stability of the patient: Moderately Stable - Low risk of patient condition declining or worsening End of Shift Summary: * Shobha Valdes RN - 08/31/2024 1:21 PM EDT 08/31/24 1318 Initial Transition Plan Initial Transition Plan Home Back up Transition Plan Back up Transition plan Home Discharge Planning Contact (Name, Phone #, Relationship) for DC Planning Ruth arevalo [phone] Living Arrangements Alone Type of Residence Private residence (apartment 1st floor with 5-6 steps to enter) Assistive Devices Eyeglasses;Walker;Cane (cpap at night) Support Systems Friends;Caregiver Medication Coverage Has Med Coverage Under Insurance Plan Yes Medication Affordability No concerns related to payment for meds Informed Choice Informed Choice Given? Yes (choice form completed) Met with pt in regards to discharge planning, demographics, PCP, insurance reviewed. Uses [employer]. Pt is not a . Pt has [employer] through [employer] 38hrs per week. Pt declines home care referral at this time. * Gordy Haque RN - 08/31/2024 12:04 PM EDT ED RN HANDOFF (All Guo Below Must Be Completed) Reason/Diagnosis for Admission: CHF Type of Admission: [] Medsurg, [x] Telemetry Already in a Hospital Bed: [] Yes / [x] No Room Considerations/Precautions (ex: fever, diarrhea, or any infectious concerns): [] Yes / [x] No Electronics Supervisor: [x] Yes / [] No If YES, Cardiac Rhythm: [x] NSR, [] SB, [] ST, [] A-FIB, [] A-Flutter, [] Pacemaker, [] 1st Degree HB, [] 2nd Degree HB, [] 3rd Degree HB Reason for Electronics Supervisor: VS: Visit Vitals BP 126/75 (BP Location: Left arm;Upper, Patient Position: Sitting) Pulse 78 Temp 36.9 ??C (98.4 ??F) (Oral) Resp 20 Ht 1.854 m (73 ) Wt 147 kg (325 lb) SpO2 97% BMI 42.88 kg/m?? BSA 2.64 m?? Current Mental Status: A/O x [x]4, []3, []2, []1 Current Ambulation Status: ambulatory IV Access: [x] Yes / [] No Field IV present: [] Yes / [x] No Hx of Violence: [] Yes / [x] No / [] Unknown Fall Risk:[] Yes / [x] No Yellow Bracelet Applied [] Yes / [x] No Yellow Socks Applied [] Yes / [x] No Patient Belongings inventoried and BL completed: [x] Yes / [] No Patient belongings stored in the security closet: [] Yes (If Yes please supply Security bag #): [x] No Patient Medications stored in Pharmacy: [] Yes (If Yes please supply Medication Security bag #): [x] No ED Summary of Care: Patient presents with increased SOB for few days, IN ER chest xray shows pulmonary congestion and elevated BNP. Submitted by and Phone Extension: [phone] Gordy Haque RN 08/31/24 2252 * Gordy Haque RN - 08/31/2024 8:29 AM EDT Patient from home with complaints of increased SOB over few days. Also today has high BP. * Agustin Potter DO - 08/31/2024 8:21 AM EDT Emergency Medicine Note Patient Name: Andres Weiss Initial Evaluation: 08/31/2024 : 1955 Patient's PCP: Barbara Peterson MD Emergency Physician: Agustin Potter DO History of Present Illness Chief Complaint: Chief Complaint Patient presents with Shortness of Breath EMS reports patient has been having increased SOB and high BP today. Hx of A- fib, pacemaker and HTN. V/S are stable for EMS. EKG A-fib, none diagnostic for STEMI. HPI: This 69-year-old male significant cardiac history, including NSTEMI, MVR, A-fib, pacemaker on Coumadin presents to the emergency department today for evaluation of worsening exertional shortnessof breath, reporting that his blood pressure felt high today, dizziness and generally not feeling well for the past couple of days. He denies any headache or neck pain or neck stiffness. No focal numbness or weakness. No chest pain or palpitations. No significant cough. No abdominal pain, vomiting or diarrhea. No urinary or other complaints. No fevers, chills or sweats. No trauma or injury. Noother acute complaints ROS: I have performed a ROS with the pertinent positives and negatives documented in the history ofpresent illness. Previous History Past Medical History: Diagnosis Date A-fib ([facility] V24, [facility] V28) Hypertension Pacemaker Prostate cancer ([facility] V24, [facility] V28) History reviewed. No pertinent surgical history. Social History Tobacco Use Smoking status: Never Smokeless tobacco: Never No family history on file. has No Known Allergies. No current facility-administered medications on file prior to encounter. Current Outpatient Medications on File Prior to Encounter Medication Sig Dispense Refill atenoloL (TENORMIN) 50 mg tablet Take 1 tablet (50 mg total) by mouth 1 (one) time each day. atorvastatin (LIPITOR) 40 mg tablet Take 1 tablet (40 mg total) by mouth at bedtime. ferrous sulfate 325 mg (65 mg elemental iron) tablet Take 1 tablet (325 mg total) by mouth 1 (one) time each day. furosemide (LASIX) 40 mg tablet Take 1 tablet (40 mg total) by mouth 1 (one) time each day. lisinopriL (PRINIVIL,ZESTRIL) 20 mg tablet Take 1 tablet (20 mg total) by mouth 1 (one) time each day. Nubeqa 300 mg tablet Take 1 tablet (300 mg total) by mouth 2 (two) times a day oxyCODONE-acetaminophen (PERCOCET) 5-325 mg per tablet Take 1 tablet by mouth every 6 (six) hours if needed for moderate pain or severe pain. warfarin (COUMADIN) 5 mg tablet Take by mouth 1 (one) time each day with dinner. Physical Exam ED Triage Vitals [08/31/24 0834] Temp Heart Rate Resp BP 36.6 ??C (97.8 ??F) 79 24 137/75 SpO2 Temp Source Heart Rate Source Patient Position 97 % Oral Monitor Sitting BP Location FiO2 (%) Left arm -- General: Alert and oriented x 3, nontoxic, well-appearing, well nourished, in no acute distress. Conversing and following commands appropriately with clear sensorium. HEENT: [place] mucosa neck: Soft and supple Chest: Good air entry bilaterally, no evidence of respiratory distress Circulatory: RRR Abdomen: Soft, non-distended, Non-Tender Extremities: Warm and well-perfused Skin: Warm and dry Neuro: Alert and oriented x 3, no obvious gross acute focal deficits Results Labs Reviewed BASIC METABOLIC PANEL - Abnormal Result Value Sodium 135 Potassium 3.9 Chloride 103 CO2 27 Anion Gap 5 Glucose 136 (*) BUN 18 Creatinine 0.85 eGFR 95 BUN/Creatinine Ratio 21.2 Calcium 9.1 B-TYPE NATRIURETIC PEPTIDE - Abnormal BNP 102 (*) CBC WITH AUTO DIFFERENTIAL - Abnormal WBC 5.6 RBC 4.20 (*) Hemoglobin 12.5 (*) Hematocrit 39.8 (*) MCV 94.1 MCH 29.6 MCHC 31.4 (*) RDW 13.4 Platelets 222 MPV 9.9 NRBC 0.0 NRBC Absolute 0.00 Neutrophils Relative 74.8 Lymphocytes Relative 14.4 Monocytes Relative 6.9 Eosinophils Relative 3.2 Basophils Relative 0.5 Immature Granulocytes Relative 0.2 Neutrophils Absolute 4.20 Lymphocytes Absolute 0.81 (*) Monocytes Absolute 0.39 Eosinophils Absolute 0.18 Basophils Absolute 0.03 Immature Granulocytes Absolute 0.01 PROTHROMBIN TIME WITH INR - Abnormal Protime 39.5 (*) INR 3.2 URINALYSIS WITH REFLEX MICROSCOPIC AND CULTURE - Abnormal Specific [place] Urine 1.011 pH, Urine 7.0 Leukocytes, Urine Negative Nitrite, Urine Negative Protein, Urine Negative Glucose, Urine Negative Ketones, Urine Negative Urobilinogen, Urine 0.2 Bilirubin, Urine Negative Blood, Urine Trace (*) RBC, Urine 3.5 WBC, Urine 0.3 Squamous Epithelial, Urine 10 Bacteria, Urine Negative Hyaline Casts, Urine 0.0 PROTHROMBIN TIME WITH INR - Abnormal Protime 33.9 (*) INR 2.7 BASIC METABOLIC PANEL - Abnormal Sodium 138 Potassium 4.3 Chloride 104 CO2 29 Anion Gap 5 Glucose 110 (*) BUN 15 Creatinine 0.91 eGFR 92 BUN/Creatinine Ratio 16.5 Calcium 9.2 CBC WITH AUTO DIFFERENTIAL - Abnormal WBC 5.4 RBC 4.20 (*) Hemoglobin 12.6 (*) Hematocrit 39.8 (*) MCV 94.5 MCH 29.9 MCHC 31.7 (*) RDW 13.5 Platelets 216 MPV 10.0 NRBC 0.0 NRBC Absolute 0.00 Neutrophils Relative 67.0 Lymphocytes Relative 19.2 Monocytes Relative 9.3 Eosinophils Relative 3.7 Basophils Relative 0.4 Immature Granulocytes Relative 0.4 Neutrophils Absolute 3.59 Lymphocytes Absolute 1.03 Monocytes Absolute 0.50 Eosinophils Absolute 0.20 Basophils Absolute 0.02 Immature Granulocytes Absolute 0.02 [id number], RSV, FLU A AND B QUALITATIVE RT-PCR, INTERNAL LAB - Normal Influenza A PCR Not Detected Influenza B PCR Not Detected RSV PCR Not Detected SARS COV-2 Not Detected Narrative: Disclaimer: Testing was performed using the [employer] GeneXpert Xpress SARS-CoV-2 _Flu_RSV PLUS PCR assay. The manner in which this information is used to guide patient care is the responsibility of the healthcare provider. Results should be correlated with the clinical history, epidemiological data,and other data available to the clinician evaluating the patient. Negative results do not preclude infection. This test has been authorized by the FDA under an Emergency Use Authorization (EUA). Thistest is only authorized for the duration of time the declaration that circumstances exist justifying the authorization of the emergency use of in vitro diagnostic tests for detection of SARS-CoV-2 virus and/or diagnosis of COVID-19 infection under section 564 (b) (1) of the Act, 21 U.S.C 360bbb-3 (b) (1), unless the authorization is terminated or revoked sooner. Reference Range: Not Detected Fact sheet for Healthcare providers can be found at https://www.fda.gov/media/086859/download. Fact sheet for Healthcare patients can be found at https://www.fda.gov/media/348254/download. TROPONIN I HIGH SENSITIVITY - Normal High Sensitivity Troponin I 23 Narrative: High levels of biotin in samples may falsely decrease hsTroponin values. Use caution when interpreting hsTroponin results in patients taking biotin who exhibit renal impairment (eGFR <60) or in patients taking more than 20 mg/day of biotin. ACTIVATED PARTIAL THROMBOPLASTIN TIME - Normal aPTT 33.0 TROPONIN I HIGH SENSITIVITY - Normal High Sensitivity Troponin I 27 Narrative: High levels of biotin in samples may falsely decrease hsTroponin values. Use caution when interpreting hsTroponin results in patients taking biotin who exhibit renal impairment (eGFR <60) or in patients taking more than 20 mg/day of biotin. THYROID STIMULATING HORMONE WITH REFLEX TO FREE T4 AND FREE T3 - Normal TSH 2.17 MAGNESIUM - Normal Magnesium 2.3 CBC AND DIFFERENTIAL Narrative: The following orders were created for panel order CBC and differential. Procedure Abnormality Status --------- ------ CBC auto differential[[id number]] Abnormal Final result Please view results for these tests on the individual orders. URINALYSIS WITH REFLEX MICROSCOPIC AND CULTURE Narrative: The following orders were created for panel order Urinalysis with reflex microscopic and culture. Procedure Abnormality Status --------- ------ Urinalysis with reflex ...[[id number]] Abnormal Final result [place] urine culture tube[[id number]] Final result Please view results for these tests on the individual orders. LIPID PANEL WITH REFLEX TO DIRECT LDL Cholesterol 127 Triglycerides 117 HDL 61 LDL Calculated 43 VLDL Cholesterol Darren 23.4 Non HDL Chol. (LDL+VLDL) 66 Chol/HDL Ratio 2.1 CBC AND DIFFERENTIAL Narrative: The following orders were created for panel order CBC and differential. Procedure Abnormality Status --------- ------ CBC auto differential[[id number]] Abnormal Final result Please view results for these tests on the individual orders. HEMOGLOBIN A1C Abnormal Labs Reviewed BASIC METABOLIC PANEL - Abnormal; Notable for the following components: Result Value Glucose 136 (*) All other components within normal limits B-TYPE NATRIURETIC PEPTIDE - Abnormal; Notable for the following components: BNP 102 (*) All other components within normal limits CBC WITH AUTO DIFFERENTIAL - Abnormal; Notable for the following components: RBC 4.20 (*) Hemoglobin 12.5 (*) Hematocrit 39.8 (*) MCHC 31.4 (*) Lymphocytes Absolute 0.81 (*) All other components within normal limits PROTHROMBIN TIME WITH INR - Abnormal; Notable for the following components: Protime 39.5 (*) All other components within normal limits URINALYSIS WITH REFLEX MICROSCOPIC AND CULTURE - Abnormal; Notable for the following components: Blood, Urine Trace (*) All other components within normal limits PROTHROMBIN TIME WITH INR - Abnormal; Notable for the following components: Protime 33.9 (*) All other components within normal limits BASIC METABOLIC PANEL - Abnormal; Notable for the following components: Glucose 110 (*) All other components within normal limits CBC WITH AUTO DIFFERENTIAL - Abnormal; Notable for the following components: RBC 4.20 (*) Hemoglobin 12.6 (*) Hematocrit 39.8 (*) MCHC 31.7 (*) All other components within normal limits CT Head wo Contrast Final Result No acute intracranial abnormality -------- FINAL REPORT -------- Dictated By: GREG AUGUSTINE Dictated Date: 08/31/2024 10:31 ET Assigned Physician: GREG AUGUSTINE Reviewed and Electronically Signed By: GREG AUGUSTINE Signed Date: 08/31/2024 10:52 ET Workstation ID: [id number] Transcribed By: Self Edit Transcribed Date: 08/31/2024 10:31 ET XR Chest 1 View Final Result FINDINGS/IMPRESSION: Left chest wall pacemaker/automatic implantable cardiac defibrillator with lead unchanged. Cardiac silhouette enlargement with pulmonary vascular congestion. No pleural effusion or pneumothorax. Median sternotomy. Degenerative changes seen throughout the bones. -------- FINAL REPORT -------- Dictated By: GREG AUGUSTINE Dictated Date: 08/31/2024 09:25 ET Assigned Physician: GREG AUGUSTINE Reviewed and Electronically Signed By: GREG AUGUSTINE Signed Date: 08/31/2024 09:25 ET Workstation ID: [id number] Transcribed By: Self Edit Transcribed Date: 08/31/2024 09:25 ET Transthoracic echocardiogram (TTE) complete with PRN contrast, bubble, strain, and 3D order panel (Results Pending) I have discussed the incidental/abnormal imaging and/or lab abnormalities with the patient and haveinstructed them the need for further evaluation and workup with their primary care doctor. The laboratory results, imaging results and other diagnostic exam results were reviewed in the EMR. Medical Decision Making Medications perflutren lipid microsphere (DEFINITY) 1.3 mL in sodium chloride 0.9% 8.7 mL injection (has no administration in time range) atenoloL (TENORMIN) tablet 50 mg (50 mg oral Not Given 08/31/24 1410) atorvastatin (LIPITOR) tablet 40 mg (40 mg oral Given 08/31/24 205) lisinopriL (PRINIVIL,ZESTRIL) tablet 20 mg (20 mg oral Not Given 08/31/24 1410) NON FORMULARY (has no administration in time range) Patient is on: warfarin (COUMADIN) one time dosing (has no administration in time range) warfarin (COUMADIN) tablet 2.5 mg (2.5 mg oral Given 08/31/24 1723) ED Course as of 09/01/24 0802 Sat August 31, 2024 0935 Patient is stable and in no distress in the ED. He denies any chest, back or neck pain. He hasno shortness of breath while he is resting on the ED stretcher. Diagnostic studies are pending. Patient will continue be closely observed while in the ED. Disposition pending. [KN] 0936 EKG: Sinus rhythm at 79 bpm, compared to EKG done 12/11/2021 [KN] ED Course User Index [KN] Agustin Potter DO Clinical Impressions as of 09/01/24 0802 Shortness of breath Acute systolic congestive heart failure (CMS/HCC V24, CMS/HCC V28) Differential diagnosis: ACS ME Toxic/metabolic derangement Anemia Procedures Procedures Diagnosis 1. Shortness of breath Transthoracic echocardiogram (TTE) complete with PRN contrast, bubble, strain, and 3D order panel Transthoracic echocardiogram (TTE) complete with PRN contrast, bubble, strain, and 3D order panel 2. Acute systolic congestive heart failure (CMS/HCC V24, CMS/HCC V28) Transthoracic echocardiogram (TTE) complete with PRN contrast, bubble, strain, and 3D order panel Transthoracic echocardiogram (TTE) complete with PRN contrast, bubble, strain, and 3D order panel Disposition Admit to Inpatient ED Prescriptions None Physician Attestation Agustin Potter DO 08/31/24 0938 Agustin Potter DO 09/01/24 0802 documented in this encounter H&P Notes * Willam Jovel MD - 08/31/2024 2:23 PM EDT Admitting MD: Willam Jovel MD PCP: Barbara Peterson MD Code Status: Full Code - Default HPI : Patient is a 69 y.o. male with past medical history of essential hypertension, prostate cancer, atrial fibrillation with secondary hypercoagulable state on Eliquis, chronic systolic CHF with ejection fraction of 47%, mitral valve prolapse with regurgitation coming into the hospital with worsening shortness of breath. Patient denied any chest pain, lightheadedness or dizziness. Patient denied any fever or chills. On arrival to the hospital, the patient was vitally stable. Laboratory workup was unremarkable. Troponins negative. CT head was negative as well. X-ray of the chest showed pulmonary vascular congestion. Past Medical History: Past Surgical History: Past Medical History: Diagnosis Date A-fib ([facility] V24, [facility] V28) Hypertension Pacemaker Prostate cancer ([facility] V24, [facility] V28) No past surgical history on file. Family History Social History: No family history on file. Social History Socioeconomic History Marital status: Single Spouse name: Not on file Number of children: Not on file Years of education: Not on file Highest education level: Not on file Occupational History Not on file Tobacco Use Smoking status: Not on file Smokeless tobacco: Not on file Substance and Sexual Activity Alcohol use: Not on file Drug use: Not on file Sexual activity: Not on file Other Topics Concern Not on file Social History Narrative Not on file Allergies: No Known Allergies Medications: Current Outpatient Medications Medication Instructions atenoloL (TENORMIN) 50 mg, Daily atorvastatin (LIPITOR) 40 mg, Nightly ferrous sulfate 325 mg, Daily furosemide (LASIX) 40 mg, Daily lisinopriL (PRINIVIL,ZESTRIL) 20 mg, Daily Nubeqa 300 mg, 2 times daily oxyCODONE-acetaminophen (PERCOCET) 5-325 mg per tablet 1 tablet, Every 6 hours PRN warfarin (COUMADIN) 5 mg tablet Daily with dinner Review of Systems: A complete 14 point review of symptoms was done and is negative except as mentioned in the note above. Vitals: Vitals: 08/31/24 1411 BP: 131/71 Pulse: 74 Resp: Temp: SpO2: 98% Physical Exam: Constitutional: General: Not in acute distress. Appearance: Obese appearing. HENT: Head: Normocephalic and atraumatic. Right Ear: External ear normal. Left Ear: External ear normal. Nose: Nose normal. Eyes: Extraocular Movements: Extraocular movements intact. Cardiovascular: Rate and Rhythm: Normal rate and regular rhythm. Pulses: Normal pulses. Heart sounds: Normal heart sounds. No murmur heard. No friction rub. No gallop. Pulmonary: Effort: Pulmonary effort is normal. No respiratory distress. Breath sounds: Normal breath sounds. No stridor. No wheezing or rales. Abdominal: General: Abdomen is flat. There is no distension. Palpations: Abdomen is soft. There is no mass. Tenderness: There is no abdominal tenderness. Musculoskeletal: General: No swelling or deformity. Normal range of motion. Cervical back: Normal range of motion. Right lower le+ edema. Left lower le+ edema. Skin: General: Skin is warm and dry. Neurological: General: No focal deficit present. Mental Status: Alert and oriented to person, place, and time. Mental status is at baseline. Psychiatric: Mood and Affect: Mood normal. Behavior: Behavior normal. Labs: Labs Reviewed BASIC METABOLIC PANEL - Abnormal Result Value Sodium 135 Potassium 3.9 Chloride 103 CO2 27 Anion Gap 5 Glucose 136 (*) BUN 18 Creatinine 0.85 eGFR 95 BUN/Creatinine Ratio 21.2 Calcium 9.1 B-TYPE NATRIURETIC PEPTIDE - Abnormal BNP 102 (*) CBC WITH AUTO DIFFERENTIAL - Abnormal WBC 5.6 RBC 4.20 (*) Hemoglobin 12.5 (*) Hematocrit 39.8 (*) MCV 94.1 MCH 29.6 MCHC 31.4 (*) RDW 13.4 Platelets 222 MPV 9.9 NRBC 0.0 NRBC Absolute 0.00 Neutrophils Relative 74.8 Lymphocytes Relative 14.4 Monocytes Relative 6.9 Eosinophils Relative 3.2 Basophils Relative 0.5 Immature Granulocytes Relative 0.2 Neutrophils Absolute 4.20 Lymphocytes Absolute 0.81 (*) Monocytes Absolute 0.39 Eosinophils Absolute 0.18 Basophils Absolute 0.03 Immature Granulocytes Absolute 0.01 PROTHROMBIN TIME WITH INR - Abnormal Protime 39.5 (*) INR 3.2 [id number]-NPT, RSV, FLU A AND B QUALITATIVE RT-PCR, INTERNAL LAB - Normal Influenza A PCR Not Detected Influenza B PCR Not Detected RSV PCR Not Detected SARS COV-2 Not Detected Narrative: Disclaimer: Testing was performed using the [employer] GeneXpert Xpress SARS-CoV-2 _Flu_RSV PLUS PCR assay. The manner in which this information is used to guide patient care is the responsibility of the healthcare provider. Results should be correlated with the clinical history, epidemiological data,and other data available to the clinician evaluating the patient. Negative results do not preclude infection. This test has been authorized by the FDA under an Emergency Use Authorization (EUA). Thistest is only authorized for the duration of time the declaration that circumstances exist justifying the authorization of the emergency use of in vitro diagnostic tests for detection of SARS-CoV-2 virus and/or diagnosis of COVID-19 infection under section 564 (b) (1) of the Act, 21 U.S.C 360bbb-3 (b) (1), unless the authorization is terminated or revoked sooner. Reference Range: Not Detected Fact sheet for Healthcare providers can be found at https://www.fda.gov/media/139400/download. Fact sheet for Healthcare patients can be found at https://www.fda.gov/media/347505/download. TROPONIN I HIGH SENSITIVITY - Normal High Sensitivity Troponin I 23 Narrative: High levels of biotin in samples may falsely decrease hsTroponin values. Use caution when interpreting hsTroponin results in patients taking biotin who exhibit renal impairment (eGFR <60) or in patients taking more than 20 mg/day of biotin. ACTIVATED PARTIAL THROMBOPLASTIN TIME - Normal aPTT 33.0 TROPONIN I HIGH SENSITIVITY - Normal High Sensitivity Troponin I 27 Narrative: High levels of biotin in samples may falsely decrease hsTroponin values. Use caution when interpreting hsTroponin results in patients taking biotin who exhibit renal impairment (eGFR <60) or in patients taking more than 20 mg/day of biotin. CBC AND DIFFERENTIAL Narrative: The following orders were created for panel order CBC and differential. Procedure Abnormality Status --------- ------ CBC auto differential[[id number]] Abnormal Final result Please view results for these tests on the individual orders. LIPID PANEL WITH REFLEX TO DIRECT LDL Cholesterol 127 Triglycerides 117 HDL 61 LDL Calculated 43 VLDL Cholesterol Darren 23.4 Non HDL Chol. (LDL+VLDL) 66 Chol/HDL Ratio 2.1 URINALYSIS WITH REFLEX MICROSCOPIC AND CULTURE Narrative: The following orders were created for panel order Urinalysis with reflex microscopic and culture. Procedure Abnormality Status --------- ------ Urinalysis with reflex ...[[id number]] In process Patten urine culture tube[[id number]] In process Please view results for these tests on the individual orders. THYROID STIMULATING HORMONE WITH REFLEX TO FREE T4 AND FREE T3 HEMOGLOBIN A1C URINALYSIS WITH REFLEX MICROSCOPIC AND CULTURE Imaging: CT Head wo Contrast Final Result No acute intracranial abnormality -------- FINAL REPORT -------- Dictated By: GREG AUGUSTINE Dictated Date: 08/31/2024 10:31 ET Assigned Physician: GREG AUGUSTINE Reviewed and Electronically Signed By: GREG AUGUSTINE Signed Date: 08/31/2024 10:52 ET Workstation ID: [id number] Transcribed By: Self Edit Transcribed Date: 08/31/2024 10:31 ET XR Chest 1 View Final Result FINDINGS/IMPRESSION: Left chest wall pacemaker/automatic implantable cardiac defibrillator with lead unchanged. Cardiac silhouette enlargement with pulmonary vascular congestion. No pleural effusion or pneumothorax. Median sternotomy. Degenerative changes seen throughout the bones. -------- FINAL REPORT -------- Dictated By: GREG AUGUSTINE Dictated Date: 08/31/2024 09:25 ET Assigned Physician: GREG AUGUSTINE Reviewed and Electronically Signed By: GREG AUGUSTINE Signed Date: 08/31/2024 09:25 ET Workstation ID: [id number] Transcribed By: Self Edit Transcribed Date: 08/31/2024 09:25 ET Transthoracic echocardiogram (TTE) complete with PRN contrast, bubble, strain, and 3D order panel (Results Pending) Problem List: Patient Active Problem List Diagnosis Date Noted Date Diagnosed SOB (shortness of breath) 08/31/2024 Assessment / Plan: 69-year-old male coming into the hospital with worsening shortness of breath. Acute on chronic systolic CHF exacerbation. Underlying history of chronic systolic CHF with ejection fraction of 47% with severe mitral valve regurgitation and mitral valve prolapse. Will start the patient on Lasix 40 mg IV twice daily. Cardiac telemetry. Check labs tomorrow. Strict input and output monitoring. Will check 2D echo. Will check TSH, A1c and lipid profile. Atrial fibrillation with secondary hypercoagulable state on Coumadin. Continue with atenolol and Coumadin. Essential hypertension. Atenolol and lisinopril. Prostate cancer. Home dose of Nubeqa ordered. Med Rec/Ambulation/BPCI: Medication reconciliation Completed: Yes Source of Medication Reconciliation: Outpatient dispense report. Ulcer Prophylaxis: None. DVT Prophylaxis: Coumadin. Bowel Regimen: None. Jon Catheter: None. Diet/Feeding: Cardiac diet. Analgesia: None. Telemetry: Ordered. Fluids: None. Additional records from previous providers were reviewed in detail. Case was discussed with copy cutter and ED as well. I spent greater than 80 minutes caring for this patient today with greater than 50% of the time spent in direct [id number] care/counseling/coordination with technical staff engineer, consultants, and reviewing patient chart. Willam Jovel MD [facility] Hospitalist, 7am-7pm Available thru tiger text After 7pm, please tiger text cross coverage 08/31/2024 2:33 PM EDT documented in this encounter Plan of Treatment Scheduled Orders Name Type Priority Associated Diagnoses Order Schedule Transthoracic echocardiogram (TTE) complete with PRN contrast, bubble, strain, and 3D order panel Echocardiography Routine Shortness of breath Acute systolic congestive heart failure (CMS/HCC V24, CMS/HCC V28) Once for 1 Occurrences starting 08/31/2024 until 08/31/2024 documented as of this encounter Procedures Procedure Name Priority Date/Time Associated Diagnosis Comments ECG OUTSIDE 09/02/2024 ECG ANNOTATED 09/02/2024 CBC WITH AUTO DIFFERENTIAL Routine 09/01/2024 5:54 AM EDT PROTHROMBIN TIME WITH INR Routine 09/01/2024 5:54 AM EDT CBC AND DIFFERENTIAL Routine 09/01/2024 5:54 AM EDT MAGNESIUM Routine 09/01/2024 5:54 AM EDT BASIC METABOLIC PANEL Routine 09/01/2024 5:54 AM EDT URINALYSIS WITH REFLEX MICROSCOPIC AND CULTURE Routine 08/31/2024 1:42 PM EDT PATTEN URINE CULTURE TUBE Routine 09/01/19 1:42 PM EDT URINALYSIS WITH REFLEX MICROSCOPIC AND CULTURE Routine 08/31/2024 1:[address] HEAD WO CONTRAST STAT 08/31/2024 1 0:03 AM EDT TROPONIN I HIGH SENSITIVITY STAT 08/31/2024 9:40 AM EDT ACTIVATED PARTIAL THROMBOPLASTIN TIME STAT 08/31/2024 9:40 AM EDT PROTHROMBIN TIME WITH INR STAT 08/31/2024 9:40 AM EDT XR CHEST 1 VIEW STAT 08/31/2024 9:16 AM EDT [id number], RSV, FLU A AND B QUALITATIVE RT-PCR, INTERNAL LAB STAT 08/31/2024 8:36 AM EDT TROPONIN I HIGH SENSITIVITY STAT 08/31/2024 8:36 AM EDT THYROID STIMULATING HORMONE WITH REFLEX TO FREE T4 AND FREE T3 Add-On 08/31/2024 8:36 AM EDT LIPID PANEL WITH REFLEX TO DIRECT LDL Add-On 08/31/2024 8:36 AM EDT CBC WITH AUTO DIFFERENTIAL STAT 08/31/2024 8:36 AM EDT CBC AND DIFFERENTIAL STAT 08/31/2024 8:36 AM EDT B-TYPE NATRIURETIC PEPTIDE STAT 08/31/2024 8:36 AM EDT HEMOGLOBIN A1C Add-On 08/31/2024 8:36 AM EDT BASIC METABOLIC PANEL STAT 08/31/2024 8:36 AM EDT ECG 12-LEAD STAT 08/31/2024 8:30 AM EDT documented in this encounter Results * ECG-Annotated (09/02/2024) Provider Onbase MD ECG ORDERABLES Final Result * ECG-Outside (09/02/2024) Provider Onbase MD ECG ORDERABLES Final Result * (ABNORMAL) CBC auto differential (09/01/2024 5:54 AM EDT) WBC 5.4 4.8 - 10.8 K/mcL LAB HEMETOLOGY METHOD [facility]24 [facility] RBC 4.20(L) 4.50 - 5.50 M/mcL LAB HEMETOLOGY METHOD 09/01/2024 6:28 AM [facility] Hemoglobin 12.6(L) 13.5 - 17.5 g/dL LAB HEMETOLOGY METHOD 09/01/2024 6:28 AM [facility] Hematocrit 39.8(L) 42.0 - 54.0 % LAB HEMETOLOGY METHOD 09/01/2024 6:28 AM [facility] MCV 94.5 79.0 - 98.0 FL LAB HEMETOLOGY METHOD 09/01/2024 6:28 AM [facility] MCH 29.9 27.0 - 32.0 pcg LAB HEMETOLOGY METHOD 09/01/2024 6:28 AM [facility] MCHC 31.7(L) 32.0 - 37.0 g/dL LAB HEMETOLOGY METHOD 09/01/2024 6:28 AM [facility] RDW 13.5 11.0 - 15.0 % LAB HEMETOLOGY METHOD 09/01/2024 6:28 AM [facility] Platelets 216 130 - 400 K/mcL LAB HEMETOLOGY METHOD 09/01/2024 6:28 AM [facility] MPV 10.0 7.0 - 11.0 FL LAB HEMETOLOGY METHOD 09/01/2024 6:28 AM [facility] NRBC 0.0 <1.0 % LAB HEMETOLOGY METHOD 09/01/2024 6:28 AM [facility] NRBC Absolute 0.00 <0.10 K/mcL LAB HEMETOLOGY METHOD 09/01/2024 6:28 AM [facility] Neutrophils Relative 67.0 % LAB HEMETOLOGY METHOD 09/01/2024 6:28 AM [facility] Lymphocytes Relative 19.2 % LAB HEMETOLOGY METHOD 09/01/2024 6:28 AM [facility] Monocytes Relative 9.3 % LAB HEMETOLOGY METHOD 09/01/2024 6:28 AM [facility] Eosinophils Relative 3.7 % LAB HEMETOLOGY METHOD 09/01/2024 6:28 AM [facility] Basophils Relative 0.4 % LAB HEMETOLOGY METHOD 09/01/2024 6:28 AM [facility] Immature Granulocytes Relative 0.4 % LAB HEMETOLOGY METHOD 09/01/2024 6:28 AM [facility] Neutrophils Absolute 3.59 1.50 - 7.00 K/mcL LAB HEMETOLOGY METHOD 09/01/2024 6:28 AM EDT [facility] Lymphocytes Absolute 1.03 1.00 - 5.00 K/[facility] LAB HEMETOLOGY METHOD 09/01/2024 6:28 AM EDT [facility] Monocytes Absolute 0.50 0.20 - 1.00 K/mcL LAB HEMETOLOGY METHOD 09/01/2024 6:28 AM EDT [facility] Eosinophils Absolute 0.20 0.00 - 0.50 K/[facility] LAB HEMETOLOGY METHOD 09/01/2024 6:28 AM EDT [facility] Basophils Absolute 0.02 0.00 - 0.20 K/[facility] LAB HEMETOLOGY METHOD 09/01/2024 6:28 AM EDT [facility] Immature Granulocytes Absolute 0.02 0.00 - 0.03 K/[facility] LAB HEMETOLOGY METHOD 09/01/2024 6:28 AM EDT [facility] Blood Venous blood specimen / Unknown Venipuncture / Unknown 09/01/2024 5:54 AM EDT 09/01/2024 6:06 AM EDT Willam Jovel MD LAB BLOOD ORDERABLES Final Res ult [facility] [address] [place] [address], * Magnesium (09/01/2024 5:54 AM EDT) Magnesium 2.3 1.9 - 2.6 mg/dL LAB CHEMISTRY METHOD 09/01/2024 7:02 AM EDT [facility] Blood Venous blood specimen / Unknown Venipuncture / Unknown 09/01/2024 5:54 AM EDT 09/01/2024 6:07 AM EDT us Willam Jovel MD LAB BLOOD ORDERABLES Final Res ult [facility] [address] [place] [address], * (ABNORMAL) Basic metabolic panel (09/01/2024 5:54 AM EDT) Sodium 138 133 - 145 mmol/L LAB CHEMISTRY METHOD 09/01/2024 7:02 AM [facility] Potassium 4.3 3.5 - 5.5 mmol/L LAB CHEMISTRY METHOD 09/01/2024 7:02 AM [facility] Chloride 104 96 - 110 mmol/L LAB CHEMISTRY METHOD 09/01/2024 7:02 AM [facility] CO2 29 21 - 32 mmol/L LAB CHEMISTRY METHOD 09/01/2024 7:02 AM [facility] Anion Gap 5 3 - 11 LAB CHEMISTRY METHOD 09/01/2024 7:02 AM [facility] Glucose 110(H) 70 - 100 mg/dL LAB CHEMISTRY METHOD 09/01/2024 7:02 AM [facility] BUN 15 5 - 25 mg/dL LAB CHEMISTRY METHOD 09/01/2024 7:02 AM [facility] Creatinine 0.91 0.70 - 1.30 mg/dL LAB CHEMISTRY METHOD 09/01/2024 7:02 AM [facility] eGFR 92 >=60 mL/min/1. 73m2 LAB CHEMISTRY METHOD 09/01/2024 7:02 AM [facility] Comment:Calculation based on the??Chronic Kidney Disease Epidemiology Collaboration (CKD-EPI) equation refit??without adjustment for race. BUN/Creatinine Ratio 16.5 LAB CHEMISTRY METHOD 09/01/2024 7:02 AM [facility] Calcium 9.2 8.5 - 10.5 mg/dL LAB CHEMISTRY METHOD 09/01/2024 7:02 AM EDT [facility] Blood Venous blood specimen / Unknown Venipuncture / Unknown 09/01/2024 5:54 AM EDT 09/01/2024 6:07 AM EDT us Willam Jovel MD LAB BLOOD ORDERABLES Final Res ult Performing Organization Address [facility]/ZIP Co de Phone Number [facility] [address] [place] [address], [place] [phone] * (ABNORMAL) Prothrombin time with INR (09/01/2024 5:54 AM EDT) Protime 33.9(H) 10.6 - 13.9 sec LAB COAGULATION METHOD 09/01/2024 6:28 AM EDT [facility] INR 2.7 LAB COAGULATION METHOD 09/01/2024 6:28 AM EDT [facility] Blood Venous blood specimen / Unknown Venipuncture / Unknown 09/01/2024 5:54 AM EDT 09/01/2024 6:06 AM EDT Willam Jovel MD LAB BLOOD ORDERABLES Final Res ult Performing Organization Address [facility]/ZIP Co de Phone Number [facility] [address] [place] [address], [place] [phone] * Patten urine culture tube (08/31/2024 1:42 PM EDT) Extra Tube Hold for add-ons. 08/31/2024 4:01 PM EDT [facility] Comment:Auto resulted. Urine Urine specimen obtained by clean catch procedure / Unknown Non-blood Collection / Unknown 08/31/2024 1:42 PM EDT 08/31/2024 2:17 PM EDT us Willam Jovel MD LAB URINE ORDERABLES Final Res ult [facility] [address] [place] [address], [place] [phone] * (ABNORMAL) Urinalysis with reflex microscopic and culture (08/31/2024 1:42 PM EDT) Specific [place] Urine 1.011 1.003 - 1.030 LAB URINALYSIS - AUTOMATED METHOD 08/31/2024 2:36 PM EDT [facility] pH, Urine 7.0 5.0 - 8.0 pH LAB URINALYSIS - AUTOMATED METHOD 08/31/2024 2:36 PM [facility] Leukocytes, Urine Negative Negative LAB URINALYSIS - AUTOMATED METHOD 08/31/2024 2:36 PM [facility] Nitrite, Urine Negative Negative LAB URINALYSIS - AUTOMATED METHOD 08/31/2024 2:36 PM [facility] Protein, Urine Negative <=Trace mg/dL LAB URINALYSIS - AUTOMATED METHOD 08/31/2024 2:36 PM [facility] Glucose, Urine Negative Negative mg/dL LAB URINALYSIS - AUTOMATED METHOD 08/31/2024 2:36 PM [facility] Ketones, Urine Negative Negative mg/dL LAB URINALYSIS - AUTOMATED METHOD 08/31/2024 2:36 PM [facility] Urobilinogen, Urine 0.2 0.2 - 1.0 mg/dL LAB URINALYSIS - AUTOMATED METHOD 08/31/2024 2:36 PM [facility] Bilirubin, Urine Negative Negative LAB URINALYSIS - AUTOMATED METHOD 08/31/2024 2:36 PM [facility] Blood, Urine Trace(A) Negative LAB URINALYSIS - AUTOMATED METHOD 08/31/2024 2:36 PM [facility] RBC, Urine 3.5 0 - 4 /HPF LAB URINALYSIS - AUTOMATED METHOD 08/31/2024 2:36 PM EDT [facility] WBC, Urine 0.3 0 - 4 /HPF LAB URINALYSIS - AUTOMATED METHOD 08/31/2024 2:36 PM EDT [facility] Squamous Epithelial, Urine 10 0 - 60 /LPF LAB URINALYSIS - AUTOMATED METHOD 08/31/2024 2:36 PM EDT [facility] Bacteria, Urine Negative Negative /HPF LAB URINALYSIS - AUTOMATED METHOD 08/31/2024 2:36 PM EDT [facility] Hyaline Casts, Urine 0.0 0 - 3 /LPF LAB URINALYSIS - AUTOMATED METHOD 08/31/2024 2:36 PM EDT [facility] Urine Urine specimen obtained by clean catch procedure / Unknown Non-blood Collection / Unknown 08/31/2024 1:42 PM EDT 08/31/2024 2:17 PM EDT us Willam Jovel MD LAB URINE ORDERABLES Final Res ult [facility] [address] [place] [address], [place] [phone] * CT Head wo Contrast (08/31/2024 10:03 AM EDT) Anatomical Region Laterality Modality Head and Neck Computed Tomogra phy 08/31/2024 10:3 1 AM EDT Impressions 08/31/2024 10:52 AM EDT No acute intracranial abnormality -------- FINAL REPORT -------- Dictated By: GREG AUGUSTINE Dictated Date: 08/31/2024 10:31 ET Assigned Physician: GREG AUGUSTINE Reviewed and Electronically Signed By: GREG AUGUSTINE Signed Date: 08/31/2024 10:52 ET Workstation ID: [id number] Transcribed By: Self Edit Transcribed Date: 08/31/2024 10:31 ET Narrative 08/31/2024 10:52 AM EDT PROCEDURE: HEAD CT INDICATION: Dizziness TECHNIQUE: CT of the head without intravenous contrast. Multiplanar reformats. The examination was performed utilizing dose reduction techniques. Total DLP 809 COMPARISON: ??12/11/2021. FINDINGS: ?? No acute territorial infarct, mass effect, or intracranial hemorrhage. Mild scattered periventricular and subcortical white matter hypodensities are most likely related to chronic small vessel ischemic change. 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 Ventricles, sulci, and cisterns are normal in size and configuration. No hydrocephalus or volume loss. Scattered mucosal thickening seen throughout the sinuses. ??Mastoid air cells are clear. No scalp hematoma or skull fracture. Procedure Note Greg Augustine MD - 08/31/2024 PROCEDURE: HEAD CT INDICATION: Dizziness TECHNIQUE: CT of the head without intravenous contrast. Multiplanarreformats. The examination was performed utilizing dose reductiontechniques. Total DLP 809 COMPARISON: 12/11/2021. FINDINGS: No acute territorial infarct, mass effect, or intracranial hemorrhage. Mild scattered periventricular and subcortical white matter hypodensitiesare most likely related to chronic small vessel ischemic change. Smallold infarcts in the parietal lobes are unchanged. Ventricles, sulci, and cisterns are normal in size and configuration. Nohydrocephalus or volume loss. Scattered mucosal thickening seen throughout the sinuses. Mastoid aircells are clear. No scalp hematoma or skull fracture. IMPRESSION: No acute intracranial abnormality -------- FINAL REPORT -------- Dictated By: GREG AUGUSTINE Dictated Date: 08/31/2024 10:31 ET Assigned Physician: GREG AUGUSTINE Reviewed and Electronically Signed By: GREG AUGUSTINE Signed Date: 08/31/2024 10:52 ET Workstation ID: [id number] Transcribed By: Self Edit Transcribed Date: 08/31/2024 10:31 ET Agustin Potter DO IMG CT PROCEDURES Final Result * Troponin I high sensitivity (08/31/2024 9:40 AM EDT) High Sensitivity Troponin I 27 <=79 ng/L LAB CHEMISTRY METHOD 08/31/2024 10:33 AM EDT [facility] Blood Venous blood specimen / Unknown Venipuncture / Unknown 08/31/2024 9:40 AM EDT 08/31/2024 9:57 AM EDT Narrative [facility] - 08/31/2024 10:33 AM EDT High levels of biotin in samples may falsely decrease hsTroponin values. ??Use caution when interpreting hsTroponin results in patients taking biotin who exhibit renal impairment (eGFR <60) or in patients taking more than 20 mg/day of biotin. us Agustin Potter DO LAB BLOOD ORDERABLES Final Res ult Performing Organization Address [facility] Co de Phone Number [facility] [address] [place] [address], [place] [phone] * APTT (08/31/2024 9:40 AM EDT) aPTT 33.0 24.1 - 39.3 sec LAB COAGULATION METHOD 08/31/2024 10:16 AM EDT [facility] Blood Venous blood specimen / Unknown Venipuncture / Unknown 08/31/2024 9:40 AM EDT 08/31/2024 9:57 AM EDT us Agustin Potter DO LAB BLOOD ORDERABLES Final Res ult Performing Organization Address City/[facility]/ZIP Co de Phone Number [facility] [address] [place] [address], [place] [phone] * (ABNORMAL) Prothrombin time with INR (08/31/2024 9:40 AM EDT) Protime 39.5(H) 10.6 - 13.9 sec LAB COAGULATION METHOD 08/31/2024 10:16 AM EDT [facility] INR 3.2 LAB COAGULATION METHOD 08/31/2024 10:16 AM EDT [facility] Blood Venous blood specimen / Unknown Venipuncture / Unknown 08/31/2024 9:40 AM EDT 08/31/2024 9:57 AM EDT Agustin Potter DO LAB BLOOD ORDERABLES Final Res ult [facility] [address] [place] [address], * XR Chest 1 View (08/31/2024 9:16 AM EDT) Anatomical Region Laterality Modality Body Radiographic Harriett ging 08/31/2024 9:25 AM EDT Impressions 08/31/2024 9:25 AM EDT FINDINGS/IMPRESSION: Left chest wall pacemaker/automatic implantable cardiac defibrillator with lead unchanged. ??Cardiac silhouette enlargement with pulmonary vascular congestion. ??No pleural effusion or pneumothorax. ??Median sternotomy. ??Degenerative changes seen throughout the bones. -------- FINAL REPORT -------- Dictated By: GREG AUGUSTINE Dictated Date: 08/31/2024 09:25 ET Assigned Physician: GREG AUGUSTINE Reviewed and Electronically Signed By: GREG AUGUSTINE Signed Date: 08/31/2024 09:25 ET Workstation ID: [id number] Transcribed By: Self Edit Transcribed Date: 08/31/2024 09:25 ET Narrative 08/31/2024 9:25 AM EDT XR CHEST 1 VIEW INDICATION: ??Dyspnea TECHNIQUE: XR CHEST 1 VIEW COMPARISON: 12/11/2021 Procedure Note Greg Augustine MD - 08/31/2024 XR CHEST 1 VIEW INDICATION: Dyspnea TECHNIQUE: XR CHEST 1 VIEW COMPARISON: 12/11/2021 IMPRESSION: FINDINGS/IMPRESSION: Left chest wall pacemaker/automatic implantablecardiac defibrillator with lead unchanged. Cardiac silhouette enlargementwith pulmonary vascular congestion. No pleural effusion or pneumothorax.Median sternotomy. Degenerative changes seen throughout the bones. -------- FINAL REPORT -------- Dictated By: GREG AUGUSTINE Dictated Date: 08/31/2024 09:25 ET Assigned Physician: GREG AUGUSTINE Reviewed and Electronically Signed By: GREG AUGUSTINE Signed Date: 08/31/2024 09:25 ET Workstation ID: [id number] Transcribed By: Self Edit Transcribed Date: 08/31/2024 09:25 ET us Agustin Potter DO IMG XR PROCEDURES Final Result * Lipid panel with reflex to direct LDL (08/31/2024 8:36 AM EDT) Cholesterol 127 0 - 200 mg/dL LAB CHEMISTRY METHOD 08/31/2024 2:25 PM EDT [facility] Triglycerides 117 0 - 150 mg/dL LAB CHEMISTRY METHOD 08/31/2024 2:25 PM EDT [facility] HDL 61 >=40 mg/dL LAB CHEMISTRY METHOD 08/31/2024 2:25 PM EDT [facility] LDL Calculated 43 0 - 100 mg/dL LAB CHEMISTRY METHOD 08/31/2024 2:25 PM EDT [facility] VLDL Cholesterol Darren 23.4 mg/dL LAB CHEMISTRY METHOD 08/31/2024 2:25 PM EDT [facility] Non HDL Chol. (LDL+VLDL) 66 <145 mg/dL LAB CHEMISTRY METHOD 08/31/2024 2:25 PM EDT [facility] Chol/HDL Ratio 2.1 0.0 - 4.4 LAB CHEMISTRY METHOD 08/31/2024 2:25 PM EDT [facility] Blood Venous blood specimen / Unknown Venipuncture / Unknown 08/31/2024 8:36 AM EDT 08/31/2024 9:04 AM EDT us Willam Jovel MD LAB BLOOD ORDERABLES Final Res ult [facility] [address] [place] [address], [place] [phone] * Hemoglobin A1c (08/31/2024 8:36 AM EDT) Pathologist [facility] Hemoglobin A1C 6.1 <6.5 % LAB CHEMISTRY METHOD 09/01/2024 2:20 PM EDT [facility] Mean Bld Glu Estim. 128 mg/dL LAB CHEMISTRY METHOD 09/01/2024 2:20 PM EDT [facility] Blood Venous blood specimen / Unknown Venipuncture / Unknown 08/31/2024 8:36 AM EDT 08/31/2024 9:04 AM EDT Willam Jovel MD LAB BLOOD ORDERABLES Final Res ult Performing Organization Address [facility]/ZIP Co de Phone Number [facility] [address] [place] [address], * Thyroid stimulating hormone with reflex to free t4 and free t3 (08/31/2024 8:36 AM EDT) [facility] TSH 2.17 0.40 - 4.00 mcIU/mL LAB CHEMISTRY METHOD 08/31/2024 3:44 PM EDT [facility] Blood Venous blood specimen / Unknown Venipuncture / Unknown 08/31/2024 8:36 AM EDT 08/31/2024 9:04 AM EDT Willam Jovel MD LAB BLOOD ORDERABLES Final Res ult [facility] [address] [place] [address], [place] [phone] * (ABNORMAL) CBC auto differential (08/31/2024 8:36 AM EDT) Pathologist [facility] WBC 5.6 4.8 - 10.8 K/[facility] LAB HEMETOLOGY METHOD 08/31/2024 9:10 AM EDT [facility] RBC 4.20(L) 4.50 - 5.50 M/mcL LAB HEMETOLOGY METHOD 08/31/2024 9:10 AM EDT [facility] Hemoglobin 12.5(L) 13.5 - 17.5 g/dL LAB HEMETOLOGY METHOD 08/31/2024 9:10 AM [facility] Hematocrit 39.8(L) 42.0 - 54.0 % LAB HEMETOLOGY METHOD 08/31/2024 9:[facility] MCV 94.1 79.0 - 98.0 FL LAB HEMETOLOGY METHOD 08/31/2024 9:10 AM [facility] MCH 29.6 27.0 - 32.0 pcg LAB HEMETOLOGY METHOD 08/31/2024 9:10 AM [facility] MCHC 31.4(L) 32.0 - 37.0 g/dL LAB HEMETOLOGY METHOD 08/31/2024 9:10 AM [facility] RDW 13.4 11.0 - 15.0 % LAB HEMETOLOGY METHOD 08/31/2024 9:10 AM [facility] Platelets 222 130 - 400 K/mcL LAB HEMETOLOGY METHOD 08/31/2024 9:10 AM [facility] MPV 9.9 7.0 - 11.0 FL LAB HEMETOLOGY METHOD 08/31/2024 9:10 AM [facility] NRBC 0.0 <1.0 % LAB HEMETOLOGY METHOD 08/31/2024 9:10 AM [facility] NRBC Absolute 0.00 <0.10 K/mcL LAB HEMETOLOGY METHOD 08/31/2024 9:10 AM [facility] Neutrophils Relative 74.8 % LAB HEMETOLOGY METHOD 08/31/2024 9:10 AM [facility] Lymphocytes Relative 14.4 % LAB HEMETOLOGY METHOD 08/31/2024 9:10 AM [facility] Monocytes Relative 6.9 % LAB HEMETOLOGY METHOD 08/31/2024 9:10 AM [facility] Eosinophils Relative 3.2 % LAB HEMETOLOGY METHOD 08/31/2024 9:10 AM [facility] Basophils Relative 0.5 % LAB HEMETOLOGY METHOD 08/31/2024 9:10 AM [facility] Immature Granulocytes Relative 0.2 % LAB HEMETOLOGY METHOD 08/31/2024 9:10 AM [facility] Neutrophils Absolute 4.20 1.50 - 7.00 K/mcL LAB HEMETOLOGY METHOD 08/31/2024 9:10 AM [facility] Lymphocytes Absolute 0.81(L) 1.00 - 5.00 K/mcL LAB HEMETOLOGY METHOD 08/31/2024 9:10 AM [facility] Monocytes Absolute 0.39 0.20 - 1.00 K/mcL LAB HEMETOLOGY METHOD 08/31/2024 9:10 AM [facility] Eosinophils Absolute 0.18 0.00 - 0.50 K/mcL LAB HEMETOLOGY METHOD 08/31/2024 9:10 AM [facility] Basophils Absolute 0.03 0.00 - 0.20 K/mcL LAB HEMETOLOGY METHOD 08/31/2024 9:10 AM [facility] Immature Granulocytes Absolute 0.01 0.00 - 0.03 K/mcL LAB HEMETOLOGY METHOD 08/31/2024 9:10 AM [facility] Blood Venous blood specimen / Unknown Venipuncture / Unknown 08/31/2024 8:36 AM EDT 08/31/2024 9:04 AM EDT us Agustin Ayaka Reynosomala DO LAB BLOOD ORDERABLES Final Res ult [facility] [address] [place] [address], * [id number], RSV, Influenza A and B qualitative RT-PCR (08/31/2024 8:36 AM EDT) Influenza A PCR Not Detected Not Detected LAB MICROBIOLOGY METHOD 08/31/2024 9:52 AM EDT [facility] Influenza B PCR Not Detected Not Detected LAB MICROBIOLOGY METHOD 08/31/2024 9:52 AM EDT [facility] RSV PCR Not Detected Not Detected LAB MICROBIOLOGY METHOD 08/31/2024 9:52 AM EDT [facility] SARS COV-2 Not Detected Not Detected LAB MICROBIOLOGY METHOD 08/31/2024 9:52 AM EDT [facility] Swab Nasopharyngeal structure / Unknown Non-blood Collection / Unknown 08/31/2024 8:36 AM EDT 08/31/2024 9:03 AM EDT Narrative [facility] - 08/31/2024 9:52 AM EDT Disclaimer: ??Testing was performed using the [employer] GeneXpert Xpress SARS-CoV-2 _Flu_RSV PLUS PCR assay. ??The manner in which this information is used to guide patient care is the responsibility of the healthcare provider. ??Results should be correlated with the clinical history, epidemiological data, and other data available to the clinician evaluating the patient. ??Negative results do not preclude infection. ??This test has been authorized by the FDA under an Emergency Use Authorization (EUA). ??This test is only authorized for the duration of time the declaration that circumstances exist justifying the authorization of the emergency use of in vitro diagnostic tests for detection of SARS-CoV-2 virus and/or diagnosis of COVID-19 infection under section 564 (b) (1) of the Act, 21 U.S.C 360bbb-3 (b) (1), unless the authorization is terminated or revoked sooner. ?? Reference Range: Not Detected Fact sheet for Healthcare providers can be found at https://www.fda.gov/media/100480/download. ?? Fact sheet for Healthcare patients can be found at https://www.fda.gov/media/240260/download. us Agustin Potter DO LAB MICROBIOLOGY - GENERAL ORD ERABLES Final Result Performing Organization Address [facility] Co de Phone Number [facility] [address] [place] [address], * Troponin I high sensitivity (08/31/2024 8:36 AM EDT) [facility] High Sensitivity Troponin I 23 <=79 ng/L LAB CHEMISTRY METHOD 08/31/2024 9:49 AM EDT [facility] Blood Venous blood specimen / Unknown Venipuncture / Unknown 08/31/2024 8:36 AM EDT 08/31/2024 9:03 AM EDT Narrative [facility] - 08/31/2024 9:49 AM EDT High levels of biotin in samples may falsely decrease hsTroponin values. ??Use caution when interpreting hsTroponin results in patients taking biotin who exhibit renal impairment (eGFR <60) or in patients taking more than 20 mg/day of biotin. us Agustin Potter DO LAB BLOOD ORDERABLES Final Res ult Performing Organization Address [facility] de Phone Number [facility] [address] [place] [address], [place] [phone] * (ABNORMAL) B-type natriuretic peptide (08/31/2024 8:36 AM EDT) [facility] BNP 102(H) <=100 pcg/mL LAB CHEMISTRY METHOD 08/31/2024 9:49 AM EDT [facility] Blood Venous blood specimen / Unknown Venipuncture / Unknown 08/31/2024 8:36 AM EDT 08/31/2024 9:04 AM EDT us Agustin Potter DO LAB BLOOD ORDERABLES Final Res ult [facility] [address] [place] [address], [place] [phone] * (ABNORMAL) Basic metabolic panel (08/31/2024 8:36 AM EDT) Pathologist [facility] Sodium 135 133 - 145 mmol/L LAB CHEMISTRY METHOD 08/31/2024 9:39 AM [facility] Potassium 3.9 3.5 - 5.5 mmol/L LAB CHEMISTRY METHOD 08/31/2024 9:39 AM [facility] Chloride 103 96 - 110 mmol/L LAB CHEMISTRY METHOD 08/31/2024 9:39 AM [facility] CO2 27 21 - 32 mmol/L LAB CHEMISTRY METHOD 08/31/2024 9:39 AM [facility] Anion Gap 5 3 - 11 LAB CHEMISTRY METHOD 08/31/2024 9:39 AM [facility] Glucose 136(H) 70 - 100 mg/dL LAB CHEMISTRY METHOD 08/31/2024 9:39 AM [facility] BUN 18 5 - 25 mg/dL LAB CHEMISTRY METHOD 08/31/2024 9:39 AM [facility] Creatinine 0.85 0.70 - 1.30 mg/dL LAB CHEMISTRY METHOD 08/31/2024 9:39 AM [facility] eGFR 95 >=60 mL/min/1. 73m2 LAB CHEMISTRY METHOD 08/31/2024 9:39 AM [facility] Comment:Calculation based on the??Chronic Kidney Disease Epidemiology Collaboration (CKD-EPI) equation refit??without adjustment for race. BUN/Creatinine Ratio 21.2 LAB CHEMISTRY METHOD 08/31/2024 9:39 AM EDT [facility] Calcium 9.1 8.5 - 10.5 mg/dL LAB CHEMISTRY METHOD 08/31/2024 9:39 AM EDT [facility] Blood Venous blood specimen / Unknown Venipuncture / Unknown 08/31/2024 8:36 AM EDT 08/31/2024 9:04 AM EDT Agustin Potter DO LAB BLOOD ORDERABLES Final Res ult Performing Organization Address [facility] Co de Phone Number [facility] [address] [place] [address], [place] [phone] * ECG 12 lead (08/31/2024 8:30 AM EDT) Ventricular Rate ECG 79 BPM GEMUSE Atrial Rate 79 BPM GEMUSE P-R Interval 272 ms GEMUSE QRS Duration 124 ms GEMUSE Q-T Interval 438 ms GEMUSE QTc 502 ms GEMUSE P Wave [place] 94 degrees GEMUSE R [place] 62 degrees GEMUSE T [place] 76 degrees GEMUSE ECG Interpretation Sinus rhythm with 1st degree A-V block Non-specific intra-ventricul ar conduction delay Nonspecific ST abnormality Abnormal ECG When compared with ECG of 11-DEC-2021 13:21, Sinus rhythm has replaced Atrial fibrillation T wave inversion no longer evident in Inferior leads T wave inversion no longer evident in Anterior leads Confirmed by AGUSTIN MYERS ([id number]) on 08/31/2024 2:54:55 PM GEMUSE 08/31/2024 8:30 AM EDT 08/31/2024 2:54 PM EDT us Agustin Potter DO ECG ORDERABLES Final Result Performing Organization Address [facility] Co de Phone Number GEMUSE documented in this encounter Visit Diagnoses Diagnosis SOB (shortness of breath)- Primary Shortness of breath Shortness of breath Acute systolic congestive heart failure (CMS/HCC V24, CMS/HCC V28) HTN (hypertension), benign Essential hypertension, benign documented in this encounter Admitting Diagnoses Diagnosis SOB (shortness of breath) Shortness of breath documented in this encounter Administered Medications Inactive Administered Medications - up to 3 most recent administrations Medication Order MAR Action Action Date Dose Rate Site atenoloL (TENORMIN) tablet 50 mg 50 mg, oral, Daily, First dose on 08/31/24 at 1342 Given 09/01/2024 9:33 AM EDT 50 mg atorvastatin (LIPITOR) tablet 40 mg 40 mg, oral, Nightly, First dose on 08/31/24 at 2100 Given 08/31/2024 8:56 PM EDT 40 mg lisinopriL (PRINIVIL,ZESTRIL) tablet 20 mg 20 mg, oral, Daily, First dose on 08/31/24 at 1342 Given 09/01/2024 9:33 AM EDT 20 mg Patient is on: warfarin (COUMADIN) one time dosing *This is a reminder to check that a warfarin order is placed for today* perflutren lipid microsphere (DEFINITY) 1.3 mL in sodium chloride 0.9% 8.7 mL injection 10 mL, intravenous, Administer over 10 Minutes, Once in imaging, Starting on 08/31/24 at 1640, For 1 dose, CV Medication Orders warfarin (COUMADIN) tablet 2.5 mg 2.5 mg, oral, Once, On 08/31/24 at 1700, For 1 dose, HAZARDOUS Drug Precautions - Low Risk (Category A/NIOSH Group 3) Reproductive Risk Only: - Single pair of ASTM standard D6978 certified chemotherapy gloves - Eye protection (goggles or face shield) required only with a potential for facial contact (i.e. concern for spitting or vomiting of the dose during or after administration) - Staff at reproductive risk (actively trying to conceive, or may be become , and ): chemo certified gown and an N95 respirator required when crushing meds (crushing of tabs allowed only in closed pouches) or opening of capsules only for allowable dosage forms. IF RECEIVING ENTERAL NUTRITION: Hold tube feeds at least 1 hour before and 1 hour after administration of warfarin., Indication for use of Warfarin: Mechanical MVR (INR: 2.5-3.5) Given 08/31/2024 5:23 PM EDT 2.5 mg documented in this encounter Historical Medications * This list may reflect changes made after this encounter. oxyCODONE-acetami nophen (PERCOCET) 5-325 mg per tablet Take 1 tablet by mouth every 6 (six) hours if needed for moderate pain or severe pain. furosemide (LASIX) 40 mg tablet Take 1 tablet (40 mg total) by mouth 1 (one) time each day. 01/02/2022 ferrous sulfate 325 mg (65 mg elemental iron) tablet Take 1 tablet (325 mg total) by mouth 1 (one) time each day. Nubeqa 300 mg tablet Take 1 tablet (300 mg total) by mouth 2 (two) times a day 08/22/2024 atorvastatin (LIPITOR) 40 mg tablet Take 1 tablet (40 mg total) by mouth at bedtime. warfarin (COUMADIN) 5 mg tablet Take by mouth 1 (one) time each day with dinner. lisinopriL (PRINIVIL,ZESTRIL ) 20 mg tablet Take 1 tablet (20 mg total) by mouth 1 (one) time each day. atenoloL (TENORMIN) 50 mg tablet Take 1 tablet (50 mg total) by mouth 1 (one) time each day. added in this encounter Active and Recently Administered Medications Times are shown in EDT. Scheduled Medication Order 08/30/2024 08/31/2024 09/01/2024 atenoloL (TENORMIN) tablet 50 mg 50 mg, oral, Daily, First dose on 08/31/24 at 1342 1410 (Not Given - Provider: Gordy Haque RN - Reason: Patient/Resident/Agent refused - education provided - Comment: already taken today) 09 (Given - Provider: Deena Dwyer RN) atorvastatin (LIPITOR) tablet 40 mg 40 mg, oral, Nightly, First dose on 08/31/24 at 2099 2055 (Given - Provider: Mendez Mascorro RN) lisinopriL (PRINIVIL,ZESTRIL) tablet 20 mg 20 mg, oral, Daily, First dose on 08/31/24 at 1342 1410 (Not Given - Provider: Gordy Haque RN - Reason: Other - Comment: already taken today) 0933 (Given - Provider: Deena Dwyer RN) NON FORMULARY 300 mg, oral, BID Diuretic, First dose on 08/31/24 at 1700, Drug Name: Nazanin, Form: tablet, Length of Therapy: Indefinite, How soon needed? (normally 72 hrs needed to procure): 0-24 hrs, Reason for Non-Formulary: Home Medicine. 1700 (Not Given - Provider: Deena Dwyer RN - Reason: Other - Comment: med was never verified) 0900 (Not Given - Provider: Deena Dwyer RN - Reason: Other - Comment: pharmacy unable to verify) Patient is on: warfarin (COUMADIN) one time dosing *This is a reminder to check that a warfarin order is placed for today* perflutren lipid microsphere (DEFINITY) 1.3 mL in sodium chloride 0.9% 8.7 mL injection 10 mL, intravenous, Administer over 10 Minutes, Once in imaging, Starting on 08/31/24 at 1640, For 1 dose, CV Medication Orders warfarin (COUMADIN) tablet 2.5 mg (COMPLETED) 2.5 mg, oral, Once, On 08/31/24 at 1700, For 1 dose, HAZARDOUS Drug Precautions - Low Risk (Category A/NIOSH Group 3) Reproductive Risk Only: - Single pair of ASTM standard [id number] certified chemotherapy gloves - Eye protection (goggles or face shield) required only with a potential for facial contact (i.e. concern for spitting or vomiting of the dose during or after administration) - Staff at reproductive risk (actively trying to conceive, or may be become , and ): chemo certified gown and an N95 respirator required when crushing meds (crushing of tabs allowed only in closed pouches) or opening of capsules only for allowable dosage forms. IF RECEIVING ENTERAL NUTRITION: Hold tube feeds at least 1 hour before and 1 hour after administration of warfarin., Indication for use of Warfarin: Mechanical MVR (INR: 2.5-3.5) 1723 (Given - Provider: MICHAEL Parker) documented in this encounter Orders Medications Ordered That Choco ht Not Have Been Administered Count Last Ordered Date First Ordered Date NON FORMULARY 1 08/31/2024 Patient is on: warfarin (COU MADIN) one time dosing 1 08/31/2024 perflutren lipid microsphere (DEFINITY) 1.3 mL in sodium chloride 0.9% 8.7 mL injection 1 08/31/2024 Diet Count Last Ordered Date First Orde red Date ADULT DISCHARGE DIET 1 09/01/2024 Nursing Count Last Ordered Date First Orde red Date FOLLOW UP PRIMARY PHYSICIAN 1 09/01/2024 WARFARIN PROVIDER DOSED DAILY 1 08/31/2024 Isolation Count Last Ordered Date First Orde red Date INITIATE DROPLET ISOLATION 1 08/31/2024 Admission Count Last Ordered Date First Orde red Date INITIATE OBS ADM REQ 1 08/31/2024 Transfer Count Last Ordered Date First Orde red Date ED TO FLOOR BED REQUEST 1 08/31/2024 Discharge Count Last Ordered Date First Orde red Date DISCHARGE PATIENT 1 09/01/2024 documented in this encounter Additional Health Concerns Infection Onset Date Last Indicated Resolved Time Respiratory Rule-Out 08/31/2024 08/31/2024 025 9:52 AM EDT COVID-19 Rule-Out 08/31/2024 08/31/2024 08/31/2024 9:52 AM EDT documented as of this encounter Care Teams Clinical Programmer Relationship Specialty Start Date End Date Barbara Peterson MD [address] [place] [address] , [address] Physician Associ D[facility]B/A: [facility] JASEN Perez PCP - General Internal Medicine 08/31/24 documented as of this encounter
--- OUTSIDE RECORDS SUMMARY | 2024-09-06 11:41 | XMS_ITS | Clinical Summary ---
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 Active lisinopriL (PRINIVIL,ZESTR IL) 20 mg tablet Take 1 tablet (20 mg total) by mouth 1 (one) time each day. Active warfarin (COUMADIN) 5 mg tablet Take by mouth 1 (one) time each day with dinner. Active atorvastatin (LIPITOR) 40 mg tablet Take 1 tablet (40 mg total) by mouth at bedtime. Active Nubeqa 300 mg tablet Take 1 tablet (300 mg total) by mouth 2 (two) times a day 08/22/2024 Active ferrous sulfate 325 mg (65 mg elemental iron) tablet Take 1 tablet (325 mg total) by mouth 1 (one) time each day. Active furosemide (LASIX) 40 mg tablet Take 1 tablet (40 mg total) by mouth 1 (one) time each day. 01/02/2022 Active oxyCODONE-aceta minophen (PERCOCET) 5-325 mg per tablet Take 1 tablet by mouth every 6 (six) hours if needed for moderate pain or severe pain. Active Active Problems Problem Noted Date Diagnosed Date HTN (hypertension), benign 09/01/2024 SOB (shortness of breath) 08/31/2024 Encounters Date Type Department Care Team Description 08/31/2024 8:24 AM EDT - 09/01/2024 12:57 PM EDT Hospital Encounter [facility] [address] [place] [address] Arden Potter DO Ishtiaq, Rizwan, MD Alam, Aroosa, MD Shortness of breath (Primary Dx); Acute systolic congestive heart failure ([facility] [place]24, [facility] V28) Discharge Disposition: Home or Self Care from Last 3 Months Medical History Medical History Date Comments Hypertension Prostate cancer ([facility] V24, [facility] V28) A-fib ([facility] V24, [facility] V28) Pacemaker Social History Tobacco Use Types Packs/Day Years Used Date Smoking Tobacco: Never Smokeless Tobacco: Never Tobacco Cessation:Counseling Given: Not Answered Interpersonal Safety Answer Date Record ed Physical Abuse 08/31/2024 Verbal Abuse 08/31/2024 Sex and Gender Information Value Date Recorded Sex Assigned at Not on file Legal Sex Male 1:14 PM EST Gender Identity Not on file Sexual Orientation Not on file Obstetrics History Last Filed Vital Signs Vital Sign Reading Time Taken Comments Blood Pressure 129/84 09/01/2024 7:59 AM EDT Pulse 81 09/01/2024 7:59 AM EDT Temperature 36.5 ??C (97.7 ??F) 09/01/2024 7:59 AM E DT Respiratory Rate 20 09/01/2024 7:59 AM EDT Oxygen Saturation 100% 09/01/2024 7:59 AM EDT Inhaled Oxygen Concentration - - Weight 147 kg (325 lb) 08/31/2024 8:35 AM EDT Height 185.4 cm (6' 1 ) 08/31/2024 8:35 AM EDT Body Mass Index 42.88 08/31/2024 8:35 AM EDT Plan of Treatment Health Maintenance Due Date Last Done Comments DTaP,Tdap,and Td Vaccines (1 - Tdap) 07/11/1975 Zoster Vaccines (1 of 2) 2006 RSV Immunization Adult Patients (1 - Risk 60-74 years 1-dose series) 2016 Colorectal Cancer Screening: Colonoscopy 03/29/2022 Depression Screening 03/29/2022 Social Influencers of Health Screening 03/29/2022 COVID-19 Vaccine (7 - Pfizer risk 2023- season) 2024 02/21/2024, 04/21/2023, 07/30/2021, Additional history exists Falls Risk Assessment 09/01/2025 09/01/2024 Hypertension/CHF/CAD Annual BMP Blood Test 09/01/2025 09/01/2024, 08/31/2024 Cholesterol Screening (Lipid Panel) 08/31/2029 08/31/2024, 12/15/2021 Hepatitis C Screening Completed 12/29/2021 Influenza Vaccine Completed 02/21/2024, 04/21/2023 Pneumococcal Vaccine: 50+ Years Completed 02/21/2024, 01/13/2017 HIB Vaccines Aged Out No longer eligi [...] to complete this topic RSV Immunization Patients Under 20 months Aged Out No longer eligible based on patient's age to complete this topic Varicella Vaccines Aged Out No longer eligible based on patient's age to complete this topic Procedures Procedure Name Priority Date/Time Associated Diagnosis Comments ECG ANNOTATED 09/02/2024 ECG OUTSIDE 09/02/2024 CBC WITH AUTO DIFFERENTIAL Routine 09/01/2024 5:54 AM EDT MAGNESIUM Routine 09/01/2024 5:54 AM EDT BASIC METABOLIC PANEL Routine 09/01/2024 5:54 AM EDT CBC AND DIFFERENTIAL Routine 09/01/2024 5:54 AM EDT PROTHROMBIN TIME WITH INR Routine 09/01/2024 5:54 AM EDT PATTEN URINE CULTURE TUBE Routine 09/01/19 1:42 PM EDT URINALYSIS WITH REFLEX MICROSCOPIC AND CULTURE Routine 08/31/2024 1:42 PM EDT URINALYSIS WITH REFLEX MICROSCOPIC AND CULTURE Routine 08/31/2024 1:[address] HEAD WO CONTRAST STAT 08/31/2024 1 0:03 AM EDT TROPONIN I HIGH SENSITIVITY STAT 08/31/2024 9:40 AM EDT ACTIVATED PARTIAL THROMBOPLASTIN TIME STAT 08/31/2024 9:40 AM EDT PROTHROMBIN TIME WITH INR STAT 08/31/2024 9:40 AM EDT XR CHEST 1 VIEW STAT 08/31/2024 9:16 AM EDT LIPID PANEL WITH REFLEX TO DIRECT LDL Add-On 08/31/2024 8:36 AM EDT HEMOGLOBIN A1C Add-On 08/31/2024 8:36 AM EDT THYROID STIMULATING HORMONE WITH REFLEX TO FREE T4 AND FREE T3 Add-On 08/31/2024 8:36 AM EDT CBC WITH AUTO DIFFERENTIAL STAT 08/31/2024 8:36 AM EDT TROPONIN I HIGH SENSITIVITY STAT 08/31/2024 8:36 AM EDT B-TYPE NATRIURETIC PEPTIDE STAT 08/31/2024 8:36 AM EDT BASIC METABOLIC PANEL STAT 08/31/2024 8:36 AM EDT CBC AND DIFFERENTIAL STAT 08/31/2024 8:36 AM EDT [id number], RSV, FLU A AND B QUALITATIVE RT-PCR, INTERNAL LAB STAT 08/31/2024 8:36 AM EDT ECG 12-LEAD STAT 08/31/2024 8:30 AM EDT from Last 3 Months Results * ECG-Outside (09/02/2024) us Provider Onbase MD ECG ORDERABLES Final Result * ECG-Annotated (09/02/2024) us Provider Onbase MD ECG ORDERABLES Final Result * (ABNORMAL) CBC auto differential (09/01/2024 5:54 AM EDT) Only the most recent of2 resultswithin the time period is included. WBC 5.4 4.8 - 10.8 K/mcL LAB HEMETOLOGY METHOD 09/01/2024 6:28 AM [facility] RBC 4.20(L) 4.50 - 5.50 M/mcL LAB HEMETOLOGY METHOD 09/01/2024 6:28 AM [facility] Hemoglobin 12.6(L) 13.5 - 17.5 g/dL LAB HEMETOLOGY METHOD 09/01/2024 6:28 AM [facility] Hematocrit 39.8(L) 42.0 - 54.0 % LAB HEMETOLOGY METHOD 09/01/2024 6:28 AM [facility] MCV 94.5 79.0 - 98.0 FL LAB HEMETOLOGY METHOD 09/01/2024 6:28 AM [facility] MCH 29.9 27.0 - 32.0 pcg LAB HEMETOLOGY METHOD 09/01/2024 6:28 AM [facility] MCHC 31.7(L) 32.0 - 37.0 g/dL LAB HEMETOLOGY METHOD 09/01/2024 6:28 AM [facility] RDW 13.5 11.0 - 15.0 % LAB HEMETOLOGY METHOD 09/01/2024 6:28 AM [facility] Platelets 216 130 - 400 K/mcL LAB HEMETOLOGY METHOD 09/01/2024 6:28 AM [facility] MPV 10.0 7.0 - 11.0 FL LAB HEMETOLOGY METHOD 09/01/2024 6:28 AM [facility] NRBC 0.0 <1.0 % LAB HEMETOLOGY METHOD 09/01/2024 6:28 AM [facility] NRBC Absolute 0.00 <0.10 K/mcL LAB HEMETOLOGY METHOD 09/01/2024 6:28 AM [facility] Neutrophils Relative 67.0 % LAB HEMETOLOGY METHOD 09/01/2024 6:28 AM [facility] Lymphocytes Relative 19.2 % LAB HEMETOLOGY METHOD 09/01/2024 6:28 AM [facility] Monocytes Relative 9.3 % LAB HEMETOLOGY METHOD 09/01/2024 6:28 AM [facility] Eosinophils Relative 3.7 % LAB HEMETOLOGY METHOD 09/01/2024 6:28 AM [facility] Basophils Relative 0.4 % LAB HEMETOLOGY METHOD 09/01/2024 6:28 AM [facility] Immature Granulocytes Relative 0.4 % LAB HEMETOLOGY METHOD 09/01/2024 6:28 AM [facility] Neutrophils Absolute 3.59 1.50 - 7.00 K/mcL LAB HEMETOLOGY METHOD 09/01/2024 6:28 AM [facility] Lymphocytes Absolute 1.03 1.00 - 5.00 K/mcL LAB HEMETOLOGY METHOD 09/01/2024 6:28 AM [facility] Monocytes Absolute 0.50 0.20 - 1.00 K/mcL LAB HEMETOLOGY METHOD 09/01/2024 6:28 AM EDT [facility] Eosinophils Absolute 0.20 0.00 - 0.50 K/[facility] LAB HEMETOLOGY METHOD 09/01/2024 6:28 AM EDT [facility] Basophils Absolute 0.02 0.00 - 0.20 K/[facility] LAB HEMETOLOGY METHOD 09/01/2024 6:28 AM EDT [facility] Immature Granulocytes Absolute 0.02 0.00 - 0.03 K/[facility] LAB HEMETOLOGY METHOD 09/01/2024 6:28 AM EDT [facility] Blood Venous blood specimen / Unknown Venipuncture / Unknown 09/01/2024 5:54 AM EDT 09/01/2024 6:06 AM EDT us Willam Jovel MD LAB BLOOD ORDERABLES Final Res ult [facility] [address] [place] [address], [place] [phone] * (ABNORMAL) Prothrombin time with INR (09/01/2024 5:54 AM EDT) Only the most recent of2 resultswithin the time period is included. Protime 33.9(H) 10.6 - 13.9 sec LAB COAGULATION METHOD 09/01/2024 6:28 AM EDT [facility] INR 2.7 LAB COAGULATION METHOD 09/01/2024 6:28 AM EDT [facility] Blood Venous blood specimen / Unknown Venipuncture / Unknown 09/01/2024 5:54 AM EDT 09/01/2024 6:06 AM EDT us Willam Jovel MD LAB BLOOD ORDERABLES Final Res ult [facility] [address] [place] [address], [place] [phone] * Magnesium (09/01/2024 5:54 AM EDT) [facility] Magnesium 2.3 1.9 - 2.6 mg/dL LAB CHEMISTRY METHOD 09/01/2024 7:02 AM [facility] Blood Venous blood specimen / Unknown Venipuncture / Unknown 09/01/2024 5:54 AM EDT 09/01/2024 6:07 AM EDT Willam Jovel MD LAB BLOOD ORDERABLES Final Res ult [facility] [address] [place] [address], [place] [phone] * (ABNORMAL) Basic metabolic panel (09/01/2024 5:54 AM EDT) Only the most recent of2 resultswithin the time period is included. [facility] Sodium 138 133 - 145 mmol/L LAB CHEMISTRY METHOD 09/01/2024 7:02 AM [facility] Potassium 4.3 3.5 - 5.5 mmol/L LAB CHEMISTRY METHOD 09/01/2024 7:02 AM [facility] Chloride 104 96 - 110 mmol/L LAB CHEMISTRY METHOD 09/01/2024 7:02 AM [facility] CO2 29 21 - 32 mmol/L LAB CHEMISTRY METHOD 09/01/2024 7:02 AM [facility] Anion Gap 5 3 - 11 LAB CHEMISTRY METHOD 09/01/2024 7:02 AM [facility] Glucose 110(H) 70 - 100 mg/dL LAB CHEMISTRY METHOD 09/01/2024 7:02 AM [facility] BUN 15 5 - 25 mg/dL LAB CHEMISTRY METHOD 09/01/2024 7:02 AM EDT [facility] Creatinine 0.91 0.70 - 1.30 mg/dL LAB CHEMISTRY METHOD 09/01/2024 7:02 AM [facility] eGFR 92 >=60 mL/min/1. 73m2 LAB CHEMISTRY METHOD 09/01/2024 7:02 AM [facility] Comment:Calculation based on the??Chronic Kidney Disease Epidemiology Collaboration (CKD-EPI) equation refit??without adjustment for race. BUN/Creatinine Ratio 16.5 LAB CHEMISTRY METHOD 09/01/2024 7:02 AM [facility] Calcium 9.2 8.5 - 10.5 mg/dL LAB CHEMISTRY METHOD 09/01/2024 7:02 AM [facility] Blood Venous blood specimen / Unknown Venipuncture / Unknown 09/01/2024 5:54 AM EDT 09/01/2024 6:07 AM EDT us Willam Jovel MD LAB BLOOD ORDERABLES Final Res ult [facility] [address] [place] [address], [place] [phone] * (ABNORMAL) Urinalysis with reflex microscopic and culture (08/31/2024 1:42 PM EDT) Specific [place] Urine 1.011 1.003 - 1.030 LAB URINALYSIS - AUTOMATED METHOD 08/31/2024 2:36 PM [facility] pH, Urine 7.0 5.0 - 8.0 pH LAB URINALYSIS - AUTOMATED METHOD 08/31/2024 2:36 PM [facility] Leukocytes, Urine Negative Negative LAB URINALYSIS - AUTOMATED METHOD 08/31/2024 2:36 PM [facility] Nitrite, Urine Negative Negative LAB URINALYSIS - AUTOMATED METHOD 08/31/2024 2:36 PM [facility] Protein, Urine Negative <=Trace mg/dL LAB URINALYSIS - AUTOMATED METHOD 08/31/2024 2:36 PM [facility] Glucose, Urine Negative Negative mg/dL LAB URINALYSIS - AUTOMATED METHOD 08/31/2024 2:36 PM [facility] Ketones, Urine Negative Negative mg/dL LAB URINALYSIS - AUTOMATED METHOD 08/31/2024 2:36 PM [facility] Urobilinogen, Urine 0.2 0.2 - 1.0 mg/dL LAB URINALYSIS - AUTOMATED METHOD 08/31/2024 2:36 PM [facility] Bilirubin, Urine Negative Negative LAB URINALYSIS - AUTOMATED METHOD 08/31/2024 2:36 PM [facility] Blood, Urine Trace(A) Negative LAB URINALYSIS - AUTOMATED METHOD 08/31/2024 2:36 PM [facility] RBC, Urine 3.5 0 - 4 /HPF LAB URINALYSIS - AUTOMATED METHOD 08/31/2024 2:36 PM [facility] WBC, Urine 0.3 0 - 4 /HPF LAB URINALYSIS - AUTOMATED METHOD 08/31/2024 2:36 PM [facility] Squamous Epithelial, Urine 10 0 - 60 /LPF LAB URINALYSIS - AUTOMATED METHOD 08/31/2024 2:36 PM [facility] Bacteria, Urine Negative Negative /HPF LAB URINALYSIS - AUTOMATED METHOD 08/31/2024 2:36 PM [facility] Hyaline Casts, Urine 0.0 0 - 3 /LPF LAB URINALYSIS - AUTOMATED METHOD 08/31/2024 2:36 PM [facility] Urine Urine specimen obtained by clean catch procedure / Unknown Non-blood Collection / Unknown 08/31/2024 1:42 PM EDT 08/31/2024 2:17 PM EDT Willam Jovel MD LAB URINE ORDERABLES Final Res ult Performing Organization Address [facility]/ZIP Co de Phone Number [facility] [address] [place] [address], [place] [phone] * Patten urine culture tube (08/31/2024 1:42 PM EDT) Extra Tube Hold for add-ons. 08/31/2024 4:01 PM EDT [facility] Comment:Auto resulted. Urine Urine specimen obtained by clean catch procedure / Unknown Non-blood Collection / Unknown 08/31/2024 1:42 PM EDT 08/31/2024 2:17 PM EDT Willam Jovel MD LAB URINE ORDERABLES Final Res ult Performing Organization Address [facility] de Phone Number [facility] [address] [place] [address], [place] [phone] * CT Head wo Contrast (08/31/2024 10:03 AM EDT) Anatomical Region Laterality Modality Head and Neck Computed Tomogra phy 08/31/2024 10:3 1 AM EDT Impressions 08/31/2024 10:52 AM EDT No acute intracranial abnormality -------- FINAL REPORT -------- Dictated By: MERRITT ALBERTO Dictated Date: 08/31/2024 10:31 ET Assigned Physician: MERRITT ALBERTO Reviewed and Electronically Signed By: MERRITT ALBERTO Signed Date: 08/31/2024 10:52 ET Workstation ID: [id number] Transcribed By: Self Edit Transcribed Date: 08/31/2024 [...] scalp hematoma or skull fracture. Procedure Note Merritt Alberto MD - 08/31/2024 PROCEDURE: HEAD CT INDICATION: [...] abnormality -------- FINAL REPORT -------- Dictated By: MERRITT ALBERTO Dictated Date: 08/31/2024 10:31 ET Assigned Physician: MERRITT ALBERTO Reviewed and Electronically Signed By: MERRITT ALBERTO Signed Date: 08/31/2024 10:52 ET Workstation ID: [id number] Transcribed By: Self Edit Transcribed Date: 08/31/2024 10:31 ET us Arden Potter DO IMG CT PROCEDURES Final Result * Troponin I high sensitivity (08/31/2024 9:40 AM EDT) Only the most recent of2 resultswithin the time period is included. High Sensitivity Troponin I 27 <=79 ng/L LAB CHEMISTRY METHOD 08/31/2024 10:33 AM EDT [facility] Blood Venous blood specimen / Unknown Venipuncture / Unknown 08/31/2024 9:40 AM EDT 08/31/2024 9:57 AM EDT Narrative [facility] - 08/31/2024 10:33 AM EDT High levels of biotin in samples may falsely decrease hsTroponin values. ??Use caution when interpreting hsTroponin results in patients taking biotin who exhibit renal impairment (eGFR <60) or in patients taking more than 20 mg/day of biotin. Arden Potter DO LAB BLOOD ORDERABLES Final Res ult Performing Organization Address [facility]/ZIP Co de Phone Number [facility] [address] [place] [address], [place] [phone] * APTT (08/31/2024 9:40 AM EDT) aPTT 33.0 24.1 - 39.3 sec LAB COAGULATION METHOD 08/31/2024 10:16 AM EDT [facility] Blood Venous blood specimen / Unknown Venipuncture / Unknown 08/31/2024 9:40 AM EDT 08/31/2024 9:57 AM EDT Arden Potter DO LAB BLOOD ORDERABLES Final Res ult Performing Organization Address [facility]/ZIP Co de Phone Number [facility] [address] [place] [address], [place] [phone] * XR Chest 1 View (08/31/2024 9:16 AM EDT) Anatomical Region Laterality Modality Body Radiographic Harriett ging 08/31/2024 9:25 AM EDT Impressions 08/31/2024 9:25 AM EDT FINDINGS/IMPRESSION: Left chest wall pacemaker/automatic implantable cardiac defibrillator with lead unchanged. ??Cardiac silhouette enlargement with pulmonary vascular congestion. ??No pleural effusion or pneumothorax. ??Median sternotomy. ??Degenerative changes seen throughout the bones. -------- FINAL REPORT -------- Dictated By: MERRITT ALBERTO Dictated Date: 08/31/2024 09:25 ET Assigned Physician: MERRITT ALBERTO Reviewed and Electronically Signed By: MERRITT ALBERTO Signed Date: 08/31/2024 09:25 ET Workstation ID: [id number] Transcribed By: Self Edit Transcribed Date: 08/31/2024 09:25 ET Narrative 08/31/2024 9:25 AM EDT XR CHEST 1 VIEW INDICATION: ??Dyspnea TECHNIQUE: XR CHEST 1 VIEW COMPARISON: 12/11/2021 Procedure Note Merritt Alberto MD - 08/31/2024 XR CHEST 1 VIEW INDICATION: Dyspnea TECHNIQUE: XR CHEST 1 VIEW COMPARISON: 12/11/2021 IMPRESSION: FINDINGS/IMPRESSION: Left chest wall pacemaker/automatic implantablecardiac defibrillator with lead unchanged. Cardiac silhouette enlargementwith pulmonary vascular congestion. No pleural effusion or pneumothorax.Median sternotomy. Degenerative changes seen throughout the bones. -------- FINAL REPORT -------- Dictated By: MERRITT ALBERTO Dictated Date: 08/31/2024 09:25 ET Assigned Physician: MERRITT ALBERTO Reviewed and Electronically Signed By: MERRITT ALBERTO Signed Date: 08/31/2024 09:25 ET Workstation ID: [id number] Transcribed By: Self Edit Transcribed Date: 08/31/2024 09:25 ET Arden Potter DO IMG XR PROCEDURES Final Result * [id number], RSV, Influenza A and B qualitative RT-PCR (08/31/2024 8:36 AM EDT) Influenza A PCR Not Detected Not Detected LAB MICROBIOLOGY METHOD 08/31/2024 9:52 AM EDT [facility] Influenza B PCR Not Detected Not Detected LAB MICROBIOLOGY METHOD 08/31/2024 9:52 AM EDT [facility] RSV PCR Not Detected Not Detected LAB MICROBIOLOGY METHOD 08/31/2024 9:52 AM EDT [facility] SARS COV-2 Not Detected Not Detected LAB MICROBIOLOGY METHOD 08/31/2024 9:52 AM EDT [facility] Swab Nasopharyngeal structure / Unknown Non-blood Collection / Unknown 08/31/2024 8:36 AM EDT 08/31/2024 9:03 AM EDT Narrative [facility] - 08/31/2024 9:52 AM EDT Disclaimer: ??Testing was performed using the [employer] GeneXpert Xpress SARS-CoV-2 _Flu_RSV PLUS PCR assay. [...] for Healthcare providers can be found at https://www.fda.gov/media/154239/download. ?? Fact sheet for Healthcare patients can be found at https://www.fda.gov/media/136061/download. Arden Potter DO LAB MICROBIOLOGY - GENERAL ORD ERABLES Final Result [facility] [address] [place] [address], * Thyroid stimulating hormone with reflex to free t4 and free t3 (08/31/2024 8:36 AM EDT) TSH 2.17 0.40 - 4.00 mcIU/mL LAB CHEMISTRY METHOD 08/31/2024 3:44 PM EDT [facility] Blood Venous blood specimen / Unknown Venipuncture / Unknown 08/31/2024 8:36 AM EDT 08/31/2024 9:04 AM EDT us Willam Jovel MD LAB BLOOD ORDERABLES Final Res ult [facility] [address] [place] [address], [place] [phone] * Lipid panel with reflex to direct LDL (08/31/2024 8:36 AM EDT) Cholesterol 127 0 - 200 mg/dL LAB CHEMISTRY METHOD 08/31/2024 2:25 PM EDT [facility] Triglycerides 117 0 - 150 mg/dL LAB [facility]STRY [facility] HDL 61 >=40 mg/dL LAB CHEMISTRY METHOD 08/31/2024 2:25 PM EDT [facility] LDL Calculated 43 0 - 100 mg/dL LAB CHEMISTRY METHOD 08/31/2024 2:25 PM EDT [facility] VLDL Cholesterol Darren 23.4 mg/dL LAB CHEMISTRY METHOD 08/31/2024 2:25 PM T [facility] Non HDL Chol. (LDL+VLDL) 66 <145 mg/dL LAB CHEMISTRY METHOD 08/31/2024 2:25 PM EDT [facility] Chol/HDL Ratio 2.1 0.0 - 4.4 LAB CHEMISTRY METHOD 08/31/2024 2:25 PM EDT [facility] Blood Venous blood specimen / Unknown Venipuncture / Unknown 08/31/2024 8:36 AM EDT 08/31/2024 9:04 AM EDT us Willam Jovel MD LAB BLOOD ORDERABLES Final Res ult [facility] [address] [place] [address], * (ABNORMAL) B-type natriuretic peptide (08/31/2024 8:36 AM EDT) [facility] BNP 102(H) <=100 pcg/mL LAB CHEMISTRY METHOD 08/31/2024 9:49 AM EDT [facility] Blood Venous blood specimen / Unknown Venipuncture / Unknown 08/31/2024 8:36 AM EDT 08/31/2024 9:04 AM EDT Arden Potter DO LAB BLOOD ORDERABLES Final Res ult Performing Organization Address [facility] Co de Phone Number [facility] [address] [place] [address], * Hemoglobin A1c (08/31/2024 8:36 AM EDT) [facility] Hemoglobin A1C 6.1 <6.5 % LAB CHEMISTRY METHOD 09/01/2024 2:20 PM EDT [facility] Mean Bld Glu Estim. 128 mg/dL LAB CHEMISTRY METHOD 09/01/2024 2:20 PM EDT [facility] Blood Venous blood specimen / Unknown Venipuncture / Unknown 08/31/2024 8:36 AM EDT 08/31/2024 9:04 AM EDT us Willam Jovel MD LAB BLOOD ORDERABLES Final Res ult [facility] [address] [place] [address], [place] [phone] * ECG 12 lead (08/31/2024 8:30 AM EDT) [facility] Ventricular Rate ECG 79 BPM GEMUSE Atrial Rate 79 BPM GEMUSE P-R Interval 272 ms GEMUSE QRS Duration 124 ms GEMUSE Q-T Interval 438 ms GEMUSE QTc 502 ms GEMUSE P Wave Steele 94 degrees GEMUSE R Steele 62 degrees GEMUSE T Steele 76 degrees GEMUSE ECG Interpretation Sinus rhythm with 1st degree A-V block Non-specific intra-ventricul ar conduction delay Nonspecific ST abnormality Abnormal ECG When compared with ECG of 11-DEC-2021 13:21, Sinus rhythm has replaced Atrial fibrillation T wave inversion no longer evident in Inferior leads T wave inversion no longer evident in Anterior leads Confirmed by ARDEN MYERS ([id number]) on 08/31/2024 2:54:55 PM GEMUSE 08/31/2024 8:30 AM EDT 08/31/2024 2:54 PM EDT Arden Potter DO ECG ORDERABLES Final Result GEMUSE from Last 3 Months Insurance [facility] Member Subscriber Plan / Payer (Ef fective 2022-Present) Name:Andres Weiss Relation to Subscriber:Self Name:Andres Weiss Payer ID:[id number] Group ID:[id number] Type:Not on file Address: [place] [address] [place] [id number] Advance Directives * Full Code - Default (Latest Code Status on File) Date Activated Date Inactivated Comments 08/31/2024 12:54 PM 09/01/2024 3:02 PM This is order is used when code status has not been discussed with the patient, or code status is otherwise unknown/unconfirmed To update the patient's code status, place a code status order. Do not modify or discontinue any currently active code status orders. 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
--- OUTSIDE RECORDS SUMMARY | 2024-09-06 11:41 | XMS_ITS | Data Portability ---
Author Organization [place] [facility] Address [address] [place] [address] Care Team Providers Care Straightedge Worker Name Role Phone SANGITA REID Primary Care Provider Assessment Encounter Date Assessment Date Assessment LastModified by Organization Details LastModified Time 01/18/2022 01/18/2022 66 YO M patient establishing care with . On 12/14 he had open heart surgery at [facility] the transferred to [facility] facility. His sternotomy surgical incision has healed well. However he has a left medial lower leg surgical incision which is draining clear fluid. He was seen by his regular family services assistant located in [place] Dr. Ramirez who did not assess his [...] departure. Time On Scene with Patient: 01:11:41 [email or web address] Not available 01/18/2022 14:37:44 Plan of Treatment [...] By Organization Details Last Modified Time 01/18/2022 [id number] Thank you for yo ur visit with [facility] today. You were seen today [...] in your condition between 8am-10pm, please call [facility] at [phone] to help navigate your care. [email or web address] Not available 01/18/2022 13:18:22 Reason for Referral None Reported. Procedures Surgical History Date Name Laterality Status Provider Name and Address Organization Details Recorded Time open heart surgery completed October FREDO Engel [address], [place], [address], [place] [facility] 01/18/2022 13:26:42 Imaging Results [...] Smoker October FREDO Engel [address], [place], [address], [place] [facility] 01/18/2022 13:24:50 Do You Have An Advance Directive? Yes [email or web address] Information not available 01/18/2022 What Is Your Level Of Alcohol Consumption? Occasional [email or web address] Information not available 01/18/2022 Is Blood Transfusion Acceptable In An Emergency? Yes [email or web address] Information not available 01/18/2022 What Is Your Code Status? Full Code [email or web address] Information not available 01/18/2022 Within The Past 12 Months, Has It Happened That The Food You Bought Just Didn't Last And You Didn't Have Money To Get More. No Information not available 01/18/2022 Within The Past 12 Months, Have You Worried That Your Food Would Run Out Before You Got Money To Buy More. No [email or web address] Information not available 01/18/2022 Fall Risk: Do You Feel Unsteady When Standing Or Walking? No [email or web address] Information not available 01/18/2022 We Know That How And When People Interact With Friends And Family Can Be Very Different From Person To Person. How Often Do You Have The Opportunity To See Or Talk To People That You Care About And Feel Close To? (Ex: Talking To Friends On The Phone Or Visiting Friends Or Family Or Going To [employer] Or Club Meetings) Choose Not To Answer This Question [email or web address] Information not available 01/18/2022 Excessive Alcohol Or Drug Use No [email or web address] Information not available 01/18/2022 Does This Patient Have A PCP? Yes [email or web address] Information not available 01/18/2022 Is This Patient In Hospice? No [email or web address] Information not available 01/18/2022 We Know From Many Of Our Patients That Covering All Of Their Costs Can Be Difficult At Times. This Can Cause Stress And Impact Health. In The Past Year, Have You Been Unable To Get Any Of The Following When It Was Really Needed? No [email or web address] Information not available 01/18/2022 What Is Your Housing Situation Today? I Have Housing [email or web address] Information not available 01/18/2022 Would You Like Help Connecting To Resources? None [email or web address] Information not available 01/18/2022 Do You Use Any Illicit Or Recreational Drugs? No Information not available 01/18/2022 Sex: Unknown Functional Status None recorded. Mental Status None recorded. Family History Nothing Reported. Medical History Condition Response Diabetes N Coronary Artery Disease Y CHF N Parkinson's Disease N Cancer Y Stroke N Dementia N Asthma Y Hypothyroidism N Depression N COPD N High Cholesterol Y Rheumatoid Arthritis N Pulmonary Embolism N Hypertension Y A-fib N Osteoporosis N Kidney Disease N Past Encounters Encounter ID Performer Location Encounter Start Date Encounter Closed Date Diagnosis/Indication Diagnosis SNOMED-CT Code Diagnosis ICD10 Code Diagnosis Note [id number] October FREDO Engel [facility] [address] [facility] [id number] 01/18/2022 13:08:34 01/19/2022 07:50:40 Surgical incision wound of skin 7283718599 00 R23.8 Health Concerns Section Related Observation LastModified by Organization Detai ls LastModified Time None Recorded Concern Status LastModified by Organization Details LastModified Time None Recorded Advance Directives Directive Y: Payers Insurance Date Sequence Insurance Name Policy Number Policy Ma Covered Member ID Ma Member ID Guarantor Name 01/18/2022 1 *SELF PAY* Andres Weiss [id number] Andres Weiss 02/02/2022 2 [place] [facility] Andres Weiss [id number] Andres Weiss 02/02/2022 1 [place] [employer] Andres Weiss [id number] Andres Weiss Notes Date Note Type Note Provider Name and Address Organization Details Recorded Time 01/18/2022 [email or web address] 66 YO M patient establishing care with . On 12/14 he had open heart surgery at [facility] the transferred to [facility] facility. His sternotomy surgical incision has healed well. However he has a left medial lower leg surgical incision which is draining clear fluid. He was seen by his regular family services assistant located in [place] Dr. Ramirez who did not assess his leg wound because it wasn't draining at the time . Clear drainage of surgical incision began yesterday at 4 p.m. [facility] contacted for assessment. It was a scab and then it came off . October FREDO Engel [address], [place], [address], [place] [facility] 01/30/2022 10:04:41
== END 2024-09-06 12:10 | disposition home or self-care (01) ==
LOC: HO.HUSH 11:09
PROVIDERS: PCP Internal Medicine; Visit Provider Urology
DX: C61 Malignant neoplasm of prostate (principal); C77.2 Secondary and unspecified malignant neoplasm of intra-abdominal lymph nodes
CPT/HCPCS: 99214; G2211

== ENCOUNTER 2024-09-06 12:08 | Outpatient (REF) | payer OTHER, SELFPAY ==
--- OUTSIDE RECORDS SUMMARY | 2024-09-06 12:30 | XMS_ITS | Clinical Summary ---
Author Organization [facility] Address [address] [place] [address] Phone Care Team Providers Care Auto Glass Worker Name Role Phone Barbara Peterson MD Primary Care Provider [phone] Allergies No known active allergies Medications atenoloL [...] - 09/01/2024 12:57 PM EDT Hospital Encounter [facility] [address] [place] [address] Arden Potter DO Ishtiaq, Rizwan, MD Alam, Aroosa, MD Shortness of breath (Primary Dx); Acute systolic congestive heart failure ([facility] V24, [facility] V28) Discharge Disposition: Home or Self Care from Last 3 Months Medical History Medical History Date Comments Hypertension Prostate cancer ([facility] V24, [facility] V28) A-fib ([facility] V24, [facility] V28) Pacemaker Social History Tobacco Use Types [...] AND DIFFERENTIAL STAT 08/31/2024 8:36 AM EDT [id number], RSV, FLU A AND B QUALITATIVE RT-PCR, [...] K/mcL LAB HEMETOLOGY METHOD 09/01/2024 6:28 AM [facility] RBC 4.20(L) 4.50 - 5.50 M/mcL LAB HEMETOLOGY METHOD 09/01/2024 6:28 AM [facility] Hemoglobin 12.6(L) 13.5 - 17.5 g/dL LAB HEMETOLOGY METHOD 09/01/2024 6:28 AM [facility] Hematocrit 39.8(L) 42.0 - 54.0 % LAB HEMETOLOGY METHOD 09/01/2024 6:28 AM [facility] MCV 94.5 79.0 - 98.0 FL LAB HEMETOLOGY METHOD 09/01/2024 6:28 AM [facility] MCH 29.9 27.0 - 32.0 pcg LAB HEMETOLOGY METHOD 09/01/2024 6:28 AM [facility] MCHC 31.7(L) 32.0 - 37.0 g/dL LAB HEMETOLOGY METHOD 09/01/2024 6:28 AM [facility] RDW 13.5 11.0 - 15.0 % LAB HEMETOLOGY METHOD 09/01/2024 6:28 AM [facility] Platelets 216 130 - 400 K/mcL LAB HEMETOLOGY METHOD 09/01/2024 6:28 AM [facility] MPV 10.0 7.0 - 11.0 FL LAB HEMETOLOGY METHOD 09/01/2024 6:28 AM [facility] NRBC 0.0 <1.0 % LAB HEMETOLOGY METHOD 09/01/2024 6:28 AM [facility] NRBC Absolute 0.00 <0.10 K/mcL LAB HEMETOLOGY METHOD 09/01/2024 6:28 AM [facility] Neutrophils Relative 67.0 % LAB HEMETOLOGY METHOD 09/01/2024 6:28 AM [facility] Lymphocytes Relative 19.2 % LAB HEMETOLOGY METHOD 09/01/2024 6:28 AM [facility] Monocytes Relative 9.3 % LAB HEMETOLOGY METHOD 09/01/2024 6:28 AM [facility] Eosinophils Relative 3.7 % LAB HEMETOLOGY METHOD 09/01/2024 6:28 AM [facility] Basophils Relative 0.4 % LAB HEMETOLOGY METHOD 09/01/2024 6:28 AM [facility] Immature Granulocytes Relative 0.4 % LAB HEMETOLOGY METHOD 09/01/2024 6:28 AM [facility] Neutrophils Absolute 3.59 1.50 - 7.00 K/mcL LAB HEMETOLOGY METHOD 09/01/2024 6:28 AM [facility] Lymphocytes Absolute 1.03 1.00 - 5.00 K/mcL LAB HEMETOLOGY METHOD 09/01/2024 6:28 AM [facility] Monocytes Absolute 0.50 0.20 - 1.00 K/mcL LAB HEMETOLOGY METHOD 09/01/2024 6:[address] [facility] Eosinophils Absolute 0.20 0.00 - 0.50 K/[facility] LAB HEMETOLOGY METHOD 09/01/2024 6:[address] [facility] Basophils Absolute 0.02 0.00 - 0.20 K/[facility] LAB HEMETOLOGY METHOD 09/01/2024 6:[address] [facility] Immature Granulocytes Absolute 0.02 0.00 - 0.03 K/[facility] LAB HEMETOLOGY METHOD 09/01/2024 6:[address] [facility] Blood Venous blood specimen / Unknown Venipuncture / Unknown 09/01/2024 5:54 AM EDT 09/01/2024 6:06 AM EDT us Willam Jovel MD LAB BLOOD ORDERABLES Final Res ult [facility] [address] [place] [address], [place] [phone] * (ABNORMAL) Prothrombin time with INR (09/01/2024 5:54 AM EDT) Only the most recent of2 resultswithin the time period is included. Protime 33.9(H) 10.6 - 13.9 sec LAB COAGULATION METHOD 09/01/2024 6:[address] [facility] INR 2.7 LAB COAGULATION METHOD 09/01/2024 6:[address] [facility] Blood Venous blood specimen / Unknown Venipuncture / Unknown 09/01/2024 5:54 AM EDT 09/01/2024 6:06 AM EDT us Willam Jovel MD LAB BLOOD ORDERABLES Final Res ult [facility] [address] [place] [address], [place] [phone] * Magnesium (09/01/2024 5:54 AM EDT) [facility] Magnesium 2.3 1.9 - 2.6 mg/dL LAB CHEMISTRY METHOD 09/01/2024 7:02 AM [facility] Blood Venous blood specimen / Unknown Venipuncture / Unknown 09/01/2024 5:54 AM EDT 09/01/2024 6:07 AM EDT Willam Jovel MD LAB BLOOD ORDERABLES Final Res ult [facility] [address] [place] [address], [place] [phone] * (ABNORMAL) Basic metabolic panel (09/01/2024 5:54 AM EDT) Only the most recent of2 resultswithin the time period is included. [facility] Sodium 138 133 - 145 mmol/L LAB CHEMISTRY METHOD 09/01/2024 7:02 AM [facility] Potassium 4.3 3.5 - 5.5 mmol/L LAB CHEMISTRY METHOD 09/01/2024 7:02 AM [facility] Chloride 104 96 - 110 mmol/L LAB CHEMISTRY METHOD 09/01/2024 7:02 AM [facility] CO2 29 21 - 32 mmol/L LAB CHEMISTRY METHOD 09/01/2024 7:02 AM [facility] Anion Gap 5 3 - 11 LAB CHEMISTRY METHOD 09/01/2024 7:02 AM [facility] Glucose 110(H) 70 - 100 mg/dL LAB CHEMISTRY METHOD 09/01/2024 7:02 AM [facility] BUN 15 5 - 25 mg/dL LAB CHEMISTRY METHOD 09/01/2024 7:[address] [facility] Creatinine 0.91 0.70 - 1.30 mg/dL LAB CHEMISTRY METHOD 09/01/2024 7:02 AM [facility] eGFR 92 >=60 mL/min/1. 73m2 LAB CHEMISTRY METHOD 09/01/2024 7:02 AM [facility] Comment:Calculation based on the??Chronic Kidney Disease Epidemiology Collaboration (CKD-EPI) equation refit??without adjustment for race. BUN/Creatinine Ratio 16.5 LAB CHEMISTRY METHOD 09/01/2024 7:02 AM [facility] Calcium 9.2 8.5 - 10.5 mg/dL LAB CHEMISTRY METHOD 09/01/2024 7:02 AM [facility] Blood Venous blood specimen / Unknown Venipuncture / Unknown 09/01/2024 5:54 AM EDT 09/01/2024 6:07 AM EDT us Willam Jovel MD LAB BLOOD ORDERABLES Final Res ult [facility] [address] [place] [address], [place] [phone] * (ABNORMAL) Urinalysis with reflex microscopic and culture (08/31/2024 1:42 PM EDT) Specific [place] Urine 1.011 1.003 - 1.030 LAB URINALYSIS - AUTOMATED METHOD 08/31/2024 2:36 PM [facility] pH, Urine 7.0 5.0 - 8.0 pH LAB URINALYSIS - AUTOMATED METHOD 08/31/2024 2:36 PM [facility] Leukocytes, Urine Negative Negative LAB URINALYSIS - AUTOMATED METHOD 08/31/2024 2:36 PM [facility] Nitrite, Urine Negative Negative LAB URINALYSIS - AUTOMATED METHOD 08/31/2024 2:36 PM [facility] Protein, Urine Negative <=Trace mg/dL LAB URINALYSIS - AUTOMATED METHOD 08/31/2024 2:36 PM [facility] Glucose, Urine Negative Negative mg/dL LAB URINALYSIS - AUTOMATED METHOD 08/31/2024 2:36 PM [facility] Ketones, Urine Negative Negative mg/dL LAB URINALYSIS - AUTOMATED METHOD 08/31/2024 2:36 PM [facility] Urobilinogen, Urine 0.2 0.2 - 1.0 mg/dL LAB URINALYSIS - AUTOMATED METHOD 08/31/2024 2:36 PM [facility] Bilirubin, Urine Negative Negative LAB URINALYSIS - AUTOMATED METHOD 08/31/2024 2:36 PM [facility] Blood, Urine Trace(A) Negative LAB URINALYSIS - AUTOMATED METHOD 08/31/2024 2:36 PM [facility] RBC, Urine 3.5 0 - 4 /HPF LAB URINALYSIS - AUTOMATED METHOD 08/31/2024 2:36 PM [facility] WBC, Urine 0.3 0 - 4 /HPF LAB URINALYSIS - AUTOMATED METHOD 08/31/2024 2:36 PM [facility] Squamous Epithelial, Urine 10 0 - 60 /LPF LAB URINALYSIS - AUTOMATED METHOD 08/31/2024 2:36 PM [facility] Bacteria, Urine Negative Negative /HPF LAB URINALYSIS - AUTOMATED METHOD 08/31/2024 2:36 PM [facility] Hyaline Casts, Urine 0.0 0 - 3 /LPF LAB URINALYSIS - AUTOMATED METHOD 08/31/2024 2:36 PM [facility] Urine Urine specimen obtained by clean catch procedure / Unknown Non-blood Collection / Unknown 08/31/2024 1:42 PM EDT 08/31/2024 2:17 PM EDT Willam Jovel MD LAB URINE ORDERABLES Final Res ult Performing Organization Address [facility]/ZIP Co de Phone Number [facility] [address] [place] [address], [place] [phone] * Patten urine culture tube (08/31/2024 1:42 PM EDT) Extra Tube Hold for add-ons. 08/31/2024 4:[address] [facility] Comment:Auto resulted. Urine Urine specimen obtained by clean catch procedure / Unknown Non-blood Collection / Unknown 08/31/2024 1:42 PM EDT 08/31/2024 2:17 PM EDT Willam Jovel MD LAB URINE ORDERABLES Final Res ult Performing Organization Address [facility] de Phone Number [facility] [address] [place] [address], [place] [phone] * CT Head wo Contrast (08/31/2024 10:03 [...] Signed Date: 08/31/2024 10:52 ET Workstation ID: [id number] Transcribed By: Self Edit Transcribed Date: 08/31/2024 [...] hematoma or skull fracture. Procedure Note Merritt Ablerto MD - 08/31/2024 PROCEDURE: HEAD CT INDICATION: [...] Signed Date: 08/31/2024 10:52 ET Workstation ID: [id number] Transcribed By: Self Edit Transcribed Date: 08/31/2024 10:31 ET us Arden Potter DO IMG CT PROCEDURES Final Result * Troponin I high sensitivity (08/31/2024 9:40 AM EDT) Only the most recent of2 resultswithin the time period is included. High Sensitivity Troponin I 27 <=79 ng/L LAB CHEMISTRY METHOD 08/31/2024 10:33 AM EDT [facility] Blood Venous blood specimen / Unknown Venipuncture / Unknown 08/31/2024 9:40 AM EDT 08/31/2024 9:[address] [facility] - 08/31/2024 10:33 AM EDT High levels of biotin in samples may falsely decrease hsTroponin values. ??Use caution when interpreting hsTroponin results in patients taking biotin who exhibit renal impairment (eGFR <60) or in patients taking more than 20 mg/day of biotin. Arden Potter DO LAB BLOOD ORDERABLES Final Res ult Performing Organization Address [facility]/ZIP Co de Phone Number [facility] [address] [place] [address], [place] [phone] * APTT (08/31/2024 9:40 AM EDT) aPTT 33.0 24.1 - 39.3 sec LAB COAGULATION METHOD 08/31/2024 10:[address] [facility] Blood Venous blood specimen / Unknown Venipuncture / Unknown 08/31/2024 9:40 AM EDT 08/31/2024 9:57 AM EDT Arden Potter DO LAB BLOOD ORDERABLES Final Res ult Performing Organization Address [facility]/ZIP Co de Phone Number [facility] [address] [place] [address], [place] [phone] * XR Chest 1 View (08/31/2024 9:16 [...] Signed Date: 08/31/2024 09:25 ET Workstation ID: [id number] Transcribed By: Self Edit Transcribed Date: 08/31/2024 [...] Signed Date: 08/31/2024 09:25 ET Workstation ID: [id number] Transcribed By: Self Edit Transcribed Date: 08/31/2024 09:25 ET Arden Potter DO IMG XR PROCEDURES Final Result * [id number], RSV, Influenza A and B qualitative RT-PCR (08/31/2024 8:36 AM EDT) Influenza A PCR Not Detected Not Detected LAB MICROBIOLOGY METHOD 08/31/2024 9:[address] [facility] Influenza B PCR Not Detected Not Detected LAB MICROBIOLOGY METHOD 08/31/2024 9:[address] [facility] RSV PCR Not Detected Not Detected LAB MICROBIOLOGY METHOD 08/31/2024 9:[address] [facility] SARS COV-2 Not Detected Not Detected LAB MICROBIOLOGY METHOD 08/31/2024 9:[address] [facility] Swab Nasopharyngeal structure / Unknown Non-blood Collection / Unknown 08/31/2024 8:36 AM EDT 08/31/2024 9:[address] [facility] - 08/31/2024 9:52 AM EDT Disclaimer: ??Testing was performed using the [employer] GeneXpert Xpress SARS-CoV-2 _Flu_RSV PLUS PCR assay. [...] for Healthcare providers can be found at https://www.fda.gov/media/607090/download. ?? Fact sheet for Healthcare patients can be found at https://www.fda.gov/media/092055/download. Arden Potter DO LAB MICROBIOLOGY - GENERAL ORD ERABLES Final Result [facility] [address] [place] [address], * Thyroid stimulating hormone with reflex to free t4 and free t3 (08/31/2024 8:36 AM EDT) TSH 2.17 0.40 - 4.00 mcIU/mL LAB CHEMISTRY METHOD 08/31/2024 3:[address] [facility] Blood Venous blood specimen / Unknown Venipuncture / Unknown 08/31/2024 8:36 AM EDT 08/31/2024 9:04 AM EDT us Willam Jovel MD LAB BLOOD ORDERABLES Final Res ult [facility] [address] [place] [address], [place] [phone] * Lipid panel with reflex to direct LDL (08/31/2024 8:36 AM EDT) Cholesterol 127 0 - 200 mg/dL LAB CHEMISTRY METHOD 08/31/2024 2:[address] [facility] Triglycerides 117 0 - 150 mg/dL LAB CHEMISTRY METHOD [facility]2024 [facility] HDL 61 >=40 mg/dL LAB CHEMISTRY METHOD 08/31/2024 2:[address] [facility] LDL Calculated 43 0 - 100 mg/dL LAB CHEMISTRY METHOD 08/31/2024 2:[address] [facility] VLDL Cholesterol Darren 23.4 mg/dL LAB CHEMISTRY METHOD 08/31/2024 2:[address] [facility] Non HDL Chol. (LDL+VLDL) 66 <145 mg/dL LAB CHEMISTRY METHOD 08/31/2024 2:[address] [facility] Chol/HDL Ratio 2.1 0.0 - 4.4 LAB CHEMISTRY METHOD 08/31/2024 2:[address] [facility] Blood Venous blood specimen / Unknown Venipuncture / Unknown 08/31/2024 8:36 AM EDT 08/31/2024 9:04 AM EDT us Willam Jovel MD LAB BLOOD ORDERABLES Final Res ult [facility] [address] [place] [address], * (ABNORMAL) B-type natriuretic peptide (08/31/2024 8:36 AM EDT) [facility] BNP 102(H) <=100 pcg/mL LAB CHEMISTRY METHOD 08/31/2024 9:[address] [facility] Blood Venous blood specimen / Unknown Venipuncture / Unknown 08/31/2024 8:36 AM EDT 08/31/2024 9:04 AM EDT Arden Potter DO LAB BLOOD ORDERABLES Final Res ult Performing Organization Address [facility] Co de Phone Number [facility] [address] [place] [address], * Hemoglobin A1c (08/31/2024 8:36 AM EDT) [facility] Hemoglobin A1C 6.1 <6.5 % LAB CHEMISTRY METHOD 09/01/2024 2:[address] [facility] Mean Bld Glu Estim. 128 mg/dL LAB CHEMISTRY METHOD 09/01/2024 2:[address] [facility] Blood Venous blood specimen / Unknown Venipuncture / Unknown 08/31/2024 8:36 AM EDT 08/31/2024 9:04 AM EDT us Willam Jovel MD LAB BLOOD ORDERABLES Final Res ult [facility] [address] [place] [address], [place] [phone] * ECG 12 lead (08/31/2024 8:30 AM EDT) [facility] Ventricular Rate ECG 79 BPM GEMUSE Atrial Rate 79 BPM GEMUSE P-R Interval 272 ms GEMUSE QRS Duration 124 ms GEMUSE Q-T Interval 438 ms GEMUSE QTc 502 ms GEMUSE P Wave [place] 94 degrees GEMUSE R [place] 62 degrees GEMUSE T [place] 76 degrees GEMUSE ECG Interpretation Sinus rhythm [...] Result GEMUSE from Last 3 Months Insurance [facility] Member Subscriber Plan / Payer (Ef fective 2022-Present) Name:Andres Weiss Relation to Subscriber:Self Name:Andres Weiss Payer ID:[id number] Group ID:[id number] Type:Not on file Address: [place] [address] [place] [id number] Advance Directives * Full Code - Default [...] currently active code status orders. Care Teams Auto Glass Worker Relationship Specialty Start Date End Date Barbara Peterson MD [address] [place] [address] , [address] [facility] Physician Associ D/B/A: [facility] JASEN Perez PCP - General Internal Medicine 08/31/24
[2024-09-06 13:34] LABS: PSA,Total (Free>4and<10) 1.49 ng/mL (0.00-4.00)
== END 2024-09-06 12:09 | disposition home or self-care (01) ==
LOC: HO.10HDL 12:08
PROVIDERS: Visit Provider Urology
DX: C61 Malignant neoplasm of prostate (principal); C77.2 Secondary and unspecified malignant neoplasm of intra-abdominal lymph nodes; Z12.5 Encounter for screening for malignant neoplasm of prostate
CPT/HCPCS: 36415; 84153; 99212

== ENCOUNTER 2024-09-13 13:32 | Outpatient (REF) | payer OTHER, SELFPAY ==
--- NOTE | ~2024-09-13 | MM_ITS ---
EXAMINATION: DXA BONE DENSITY AXIAL HISTORY: C61 - Malignant neoplasm of prostate TECHNIQUE: [employer] Dual energy absorptiometry (DEXA) of the lumbar spine, total left hip, and femoral neck was performed. COMPARISON: Comparison is made with the prior examination dated 06/02/2016. FINDINGS: The bone mineral density of the lumbar spine is 1.257 with a T-score of 0.1, and a Z-score of -0.1. This is indicative of normal bone mineral density. This represents a BMD change of 5.3% compared to the prior exam. This is statistically significant. The bone mineral density of the left total hip is 1.119 with a T-score of 0.1, and a Z-score of 0.3. This is indicative of normal bone mineral density. This represents a BMD change of -10.1% compared to the prior exam. This is statistically significant. The bone mineral density of the left femoral neck is 0.980 with a T-score of -0.7, and a Z-score of 0.0. This is indicative of normal bone mineral density. This represents a BMD change of -2.6% compared to the prior exam. FRACTURE RISK: The FRAX index suggests a ten year probability of major osteoporotic fracture of 2.5%, and of hip fracture 0.3%. MM/XR DEXA axial skeleton IMPRESSION: Based on bone mineral density, and according to World Health Organization (WHO) criteria, the diagnosis is consistent with normal bone mineral density. All bone density values are in grams per centimeter squared (g/cm2). Statistically, 68% of repeat scans fall within 1 SD (+/- 0.010 g/cm2 for AP spine L1-L4) and 1 SD (+/- 0.012 g/cm2 for femur total) FRAX is a trademark of the [employer] Metabolic [employer], a World Health Organization (WHO) Collaborating Center. Electronically signed by: Anup Berger MD 09/13/2024 02:26 PM EDT
--- OUTSIDE RECORDS SUMMARY | 2024-09-13 13:35 | XMS_ITS | Clinical Summary ---
Author Organization [facility] Address [address] [place] [address] Phone Care Team Providers Care Coding Tech Name Role Phone Barbara Peterson MD Primary Care Provider [phone] Allergies No known active allergies Medications atenoloL [...] - 09/01/2024 12:57 PM EDT Hospital Encounter [facility] [address] [place] [address] Arden Potter DO Ishtiaq, Rizwan, MD Alam, Aroosa, MD Shortness of breath (Primary Dx); Acute systolic congestive heart failure ([facility] [place]24, [facility] V28) Discharge Disposition: Home or Self Care from Last 3 Months Medical History Medical History Date Comments Hypertension Prostate cancer ([facility] V24, [facility] V28) A-fib ([facility] V24, [facility] V28) Pacemaker Social History Tobacco Use Types [...] AND DIFFERENTIAL STAT 08/31/2024 8:36 AM EDT [id number], RSV, FLU A AND B QUALITATIVE RT-PCR, [...] K/mcL LAB HEMETOLOGY METHOD 09/01/2024 6:28 AM [facility] RBC 4.20(L) 4.50 - 5.50 M/mcL LAB HEMETOLOGY METHOD 09/01/2024 6:28 AM [facility] Hemoglobin 12.6(L) 13.5 - 17.5 g/dL LAB HEMETOLOGY METHOD 09/01/2024 6:28 AM [facility] Hematocrit 39.8(L) 42.0 - 54.0 % LAB HEMETOLOGY METHOD 09/01/2024 6:28 AM [facility] MCV 94.5 79.0 - 98.0 FL LAB HEMETOLOGY METHOD 09/01/2024 6:28 AM [facility] MCH 29.9 27.0 - 32.0 pcg LAB HEMETOLOGY METHOD 09/01/2024 6:28 AM [facility] MCHC 31.7(L) 32.0 - 37.0 g/dL LAB HEMETOLOGY METHOD 09/01/2024 6:28 AM [facility] RDW 13.5 11.0 - 15.0 % LAB HEMETOLOGY METHOD 09/01/2024 6:28 AM [facility] Platelets 216 130 - 400 K/mcL LAB HEMETOLOGY METHOD 09/01/2024 6:28 AM [facility] MPV 10.0 7.0 - 11.0 FL LAB HEMETOLOGY METHOD 09/01/2024 6:28 AM [facility] NRBC 0.0 <1.0 % LAB HEMETOLOGY METHOD 09/01/2024 6:28 AM [facility] NRBC Absolute 0.00 <0.10 K/mcL LAB HEMETOLOGY METHOD 09/01/2024 6:28 AM [facility] Neutrophils Relative 67.0 % LAB HEMETOLOGY METHOD 09/01/2024 6:28 AM [facility] Lymphocytes Relative 19.2 % LAB HEMETOLOGY METHOD 09/01/2024 6:28 AM [facility] Monocytes Relative 9.3 % LAB HEMETOLOGY METHOD 09/01/2024 6:28 AM [facility] Eosinophils Relative 3.7 % LAB HEMETOLOGY METHOD 09/01/2024 6:28 AM [facility] Basophils Relative 0.4 % LAB HEMETOLOGY METHOD 09/01/2024 6:28 AM [facility] Immature Granulocytes Relative 0.4 % LAB HEMETOLOGY METHOD 09/01/2024 6:28 AM [facility] Neutrophils Absolute 3.59 1.50 - 7.00 K/mcL LAB HEMETOLOGY METHOD 09/01/2024 6:28 AM [facility] Lymphocytes Absolute 1.03 1.00 - 5.00 K/mcL LAB HEMETOLOGY METHOD 09/01/2024 6:28 AM [facility] Monocytes Absolute 0.50 0.20 - 1.00 K/mcL LAB HEMETOLOGY METHOD 09/01/2024 6:28 AM EDT [facility] Eosinophils Absolute 0.20 0.00 - 0.50 K/[facility] LAB HEMETOLOGY METHOD 09/01/2024 6:28 AM EDT [facility] Basophils Absolute 0.02 0.00 - 0.20 K/[facility] LAB HEMETOLOGY METHOD 09/01/2024 6:28 AM EDT [facility] Immature Granulocytes Absolute 0.02 0.00 - 0.03 K/[facility] LAB HEMETOLOGY METHOD 09/01/2024 6:28 AM EDT [facility] Blood Venous blood specimen / Unknown Venipuncture / Unknown 09/01/2024 5:54 AM EDT 09/01/2024 6:06 AM EDT us Willam Jovel MD LAB BLOOD ORDERABLES Final Res ult [facility] [address] [place] [address], [place] [phone] * (ABNORMAL) Prothrombin time with INR (09/01/2024 5:54 AM EDT) Only the most recent of2 resultswithin the time period is included. Protime 33.9(H) 10.6 - 13.9 sec LAB COAGULATION METHOD 09/01/2024 6:28 AM EDT [facility] INR 2.7 LAB COAGULATION METHOD 09/01/2024 6:28 AM EDT [facility] Blood Venous blood specimen / Unknown Venipuncture / Unknown 09/01/2024 5:54 AM EDT 09/01/2024 6:06 AM EDT us Willam Jovel MD LAB BLOOD ORDERABLES Final Res ult [facility] [address] [place] [address], [place] [phone] * Magnesium (09/01/2024 5:54 AM EDT) [facility] Magnesium 2.3 1.9 - 2.6 mg/dL LAB CHEMISTRY METHOD 09/01/2024 7:02 AM [facility] Blood Venous blood specimen / Unknown Venipuncture / Unknown 09/01/2024 5:54 AM EDT 09/01/2024 6:07 AM EDT Willam Jovel MD LAB BLOOD ORDERABLES Final Res ult [facility] [address] [place] [address], [place] [phone] * (ABNORMAL) Basic metabolic panel (09/01/2024 5:54 AM EDT) Only the most recent of2 resultswithin the time period is included. [facility] Sodium 138 133 - 145 mmol/L LAB CHEMISTRY METHOD 09/01/2024 7:02 AM [facility] Potassium 4.3 3.5 - 5.5 mmol/L LAB CHEMISTRY METHOD 09/01/2024 7:02 AM [facility] Chloride 104 96 - 110 mmol/L LAB CHEMISTRY METHOD 09/01/2024 7:02 AM [facility] CO2 29 21 - 32 mmol/L LAB CHEMISTRY METHOD 09/01/2024 7:02 AM [facility] Anion Gap 5 3 - 11 LAB CHEMISTRY METHOD 09/01/2024 7:02 AM [facility] Glucose 110(H) 70 - 100 mg/dL LAB CHEMISTRY METHOD 09/01/2024 7:02 AM [facility] BUN 15 5 - 25 mg/dL LAB CHEMISTRY METHOD 09/01/2024 7:02 AM EDT [facility] Creatinine 0.91 0.70 - 1.30 mg/dL LAB CHEMISTRY METHOD 09/01/2024 7:02 AM [facility] eGFR 92 >=60 mL/min/1. 73m2 LAB CHEMISTRY METHOD 09/01/2024 7:02 AM [facility] Comment:Calculation based on the??Chronic Kidney Disease Epidemiology Collaboration (CKD-EPI) equation refit??without adjustment for race. BUN/Creatinine Ratio 16.5 LAB CHEMISTRY METHOD 09/01/2024 7:02 AM [facility] Calcium 9.2 8.5 - 10.5 mg/dL LAB CHEMISTRY METHOD 09/01/2024 7:02 AM [facility] Blood Venous blood specimen / Unknown Venipuncture / Unknown 09/01/2024 5:54 AM EDT 09/01/2024 6:07 AM EDT us Willam Jovel MD LAB BLOOD ORDERABLES Final Res ult [facility] [address] [place] [address], [place] [phone] * (ABNORMAL) Urinalysis with reflex microscopic and culture (08/31/2024 1:42 PM EDT) Specific [place] Urine 1.011 1.003 - 1.030 LAB URINALYSIS - AUTOMATED METHOD 08/31/2024 2:36 PM [facility] pH, Urine 7.0 5.0 - 8.0 pH LAB URINALYSIS - AUTOMATED METHOD 08/31/2024 2:36 PM [facility] Leukocytes, Urine Negative Negative LAB URINALYSIS - AUTOMATED METHOD 08/31/2024 2:36 PM [facility] Nitrite, Urine Negative Negative LAB URINALYSIS - AUTOMATED METHOD 08/31/2024 2:36 PM [facility] Protein, Urine Negative <=Trace mg/dL LAB URINALYSIS - AUTOMATED METHOD 08/31/2024 2:36 PM [facility] Glucose, Urine Negative Negative mg/dL LAB URINALYSIS - AUTOMATED METHOD 08/31/2024 2:36 PM [facility] Ketones, Urine Negative Negative mg/dL LAB URINALYSIS - AUTOMATED METHOD 08/31/2024 2:36 PM [facility] Urobilinogen, Urine 0.2 0.2 - 1.0 mg/dL LAB URINALYSIS - AUTOMATED METHOD 08/31/2024 2:36 PM [facility] Bilirubin, Urine Negative Negative LAB URINALYSIS - AUTOMATED METHOD 08/31/2024 2:36 PM [facility] Blood, Urine Trace(A) Negative LAB URINALYSIS - AUTOMATED METHOD 08/31/2024 2:36 PM [facility] RBC, Urine 3.5 0 - 4 /HPF LAB URINALYSIS - AUTOMATED METHOD 08/31/2024 2:36 PM [facility] WBC, Urine 0.3 0 - 4 /HPF LAB URINALYSIS - AUTOMATED METHOD 08/31/2024 2:36 PM [facility] Squamous Epithelial, Urine 10 0 - 60 /LPF LAB URINALYSIS - AUTOMATED METHOD 08/31/2024 2:36 PM [facility] Bacteria, Urine Negative Negative /HPF LAB URINALYSIS - AUTOMATED METHOD 08/31/2024 2:36 PM [facility] Hyaline Casts, Urine 0.0 0 - 3 /LPF LAB URINALYSIS - AUTOMATED METHOD 08/31/2024 2:36 PM [facility] Urine Urine specimen obtained by clean catch procedure / Unknown Non-blood Collection / Unknown 08/31/2024 1:42 PM EDT 08/31/2024 2:17 PM EDT Willam Jovel MD LAB URINE ORDERABLES Final Res ult Performing Organization Address [facility]/ZIP Co de Phone Number [facility] [address] [place] [address], [place] [phone] * Patten urine culture tube (08/31/2024 1:42 PM EDT) Extra Tube Hold for add-ons. 08/31/2024 4:01 PM EDT [facility] Comment:Auto resulted. Urine Urine specimen obtained by clean catch procedure / Unknown Non-blood Collection / Unknown 08/31/2024 1:42 PM EDT 08/31/2024 2:17 PM EDT Willam Jovel MD LAB URINE ORDERABLES Final Res ult Performing Organization Address [facility] de Phone Number [facility] [address] [place] [address], [place] [phone] * CT Head wo Contrast (08/31/2024 10:03 [...] Signed Date: 08/31/2024 10:52 ET Workstation ID: [id number] Transcribed By: Self Edit Transcribed Date: 08/31/2024 [...] Signed Date: 08/31/2024 10:52 ET Workstation ID: [id number] Transcribed By: Self Edit Transcribed Date: 08/31/2024 10:31 ET us Arden Potetr DO IMG CT PROCEDURES Final Result * Troponin I high sensitivity (08/31/2024 9:40 AM EDT) Only the most recent of2 resultswithin the time period is included. High Sensitivity Troponin I 27 <=79 ng/L LAB CHEMISTRY METHOD 08/31/2024 10:33 AM EDT [facility] Blood Venous blood specimen / Unknown Venipuncture / Unknown 08/31/2024 9:40 AM EDT 08/31/2024 9:57 AM EDT Narrative [facility] - 08/31/2024 10:33 AM EDT High levels of biotin in samples may falsely decrease hsTroponin values. ??Use caution when interpreting hsTroponin results in patients taking biotin who exhibit renal impairment (eGFR <60) or in patients taking more than 20 mg/day of biotin. Arden Potter DO LAB BLOOD ORDERABLES Final Res ult Performing Organization Address [facility]/ZIP Co de Phone Number [facility] [address] [place] [address], [place] [phone] * APTT (08/31/2024 9:40 AM EDT) aPTT 33.0 24.1 - 39.3 sec LAB COAGULATION METHOD 08/31/2024 10:16 AM EDT [facility] Blood Venous blood specimen / Unknown Venipuncture / Unknown 08/31/2024 9:40 AM EDT 08/31/2024 9:57 AM EDT Arden Potter DO LAB BLOOD ORDERABLES Final Res ult Performing Organization Address [facility]/ZIP Co de Phone Number [facility] [address] [place] [address], [place] [phone] * XR Chest 1 View (08/31/2024 9:16 [...] Signed Date: 08/31/2024 09:25 ET Workstation ID: [id number] Transcribed By: Self Edit Transcribed Date: 08/31/2024 [...] Signed Date: 08/31/2024 09:25 ET Workstation ID: [id number] Transcribed By: Self Edit Transcribed Date: 08/31/2024 09:25 ET Arden Potter DO IMG XR PROCEDURES Final Result * [id number], RSV, Influenza A and B qualitative RT-PCR (08/31/2024 8:36 AM EDT) Influenza A PCR Not Detected Not Detected LAB MICROBIOLOGY METHOD 08/31/2024 9:52 AM EDT [facility] Influenza B PCR Not Detected Not Detected LAB MICROBIOLOGY METHOD 08/31/2024 9:52 AM EDT [facility] RSV PCR Not Detected Not Detected LAB MICROBIOLOGY METHOD 08/31/2024 9:52 AM EDT [facility] SARS COV-2 Not Detected Not Detected LAB MICROBIOLOGY METHOD 08/31/2024 9:52 AM EDT [facility] Swab Nasopharyngeal structure / Unknown Non-blood Collection / Unknown 08/31/2024 8:36 AM EDT 08/31/2024 9:03 AM EDT Narrative [facility] - 08/31/2024 9:52 AM EDT Disclaimer: ??Testing was performed using the Well GeneXpert Xpress SARS-CoV-2 _Flu_RSV PLUS PCR assay. [...] for Healthcare providers can be found at https://www.fda.gov/media/135538/download. ?? Fact sheet for Healthcare patients can be found at https://www.fda.gov/media/434117/download. Arden Potter DO LAB MICROBIOLOGY - GENERAL ORD ERABLES Final Result [facility] [address] [place] [address], * Thyroid stimulating hormone with reflex to free t4 and free t3 (08/31/2024 8:36 AM EDT) TSH 2.17 0.40 - 4.00 mcIU/mL LAB CHEMISTRY METHOD 08/31/2024 3:44 PM EDT [facility] Blood Venous blood specimen / Unknown Venipuncture / Unknown 08/31/2024 8:36 AM EDT 08/31/2024 9:04 AM EDT us Willam Jovel MD LAB BLOOD ORDERABLES Final Res ult [facility] [address] [place] [address], [place] [phone] * Lipid panel with reflex to direct LDL (08/31/2024 8:36 AM EDT) Cholesterol 127 0 - 200 mg/dL LAB CHEMISTRY METHOD 08/31/2024 2:25 PM EDT [facility] Triglycerides 117 0 - 150 mg/dL LAB CHEMISTRY METHOD [facility]24 [facility] HDL 61 >=40 mg/dL LAB CHEMISTRY METHOD 08/31/2024 2:25 PM EDT [facility] LDL Calculated 43 0 - 100 mg/dL LAB CHEMISTRY METHOD 08/31/2024 2:25 PM EDT [facility] VLDL Cholesterol Darren 23.4 mg/dL LAB CHEMISTRY METHOD 08/31/2024 2:25 PM T [facility] Non HDL Chol. (LDL+VLDL) 66 <145 mg/dL LAB CHEMISTRY METHOD 08/31/2024 2:25 PM EDT [facility] Chol/HDL Ratio 2.1 0.0 - 4.4 LAB CHEMISTRY METHOD 08/31/2024 2:25 PM EDT [facility] Blood Venous blood specimen / Unknown Venipuncture / Unknown 08/31/2024 8:36 AM EDT 08/31/2024 9:04 AM EDT us Willam Jovel MD LAB BLOOD ORDERABLES Final Res ult [facility] [address] [place] [address], * (ABNORMAL) B-type natriuretic peptide (08/31/2024 8:36 AM EDT) [facility] BNP 102(H) <=100 pcg/mL LAB CHEMISTRY METHOD 08/31/2024 9:49 AM EDT [facility] Blood Venous blood specimen / Unknown Venipuncture / Unknown 08/31/2024 8:36 AM EDT 08/31/2024 9:04 AM EDT Arden Potter DO LAB BLOOD ORDERABLES Final Res ult Performing Organization Address [facility] Co de Phone Number [facility] [address] [place] [address], * Hemoglobin A1c (08/31/2024 8:36 AM EDT) [facility] Hemoglobin A1C 6.1 <6.5 % LAB CHEMISTRY METHOD 09/01/2024 2:20 PM EDT [facility] Mean Bld Glu Estim. 128 mg/dL LAB CHEMISTRY METHOD 09/01/2024 2:20 PM EDT [facility] Blood Venous blood specimen / Unknown Venipuncture / Unknown 08/31/2024 8:36 AM EDT 08/31/2024 9:04 AM EDT us Willam Jovel MD LAB BLOOD ORDERABLES Final Res ult [facility] [address] [place] [address], [place] [phone] * ECG 12 lead (08/31/2024 8:30 AM EDT) [facility] Ventricular Rate ECG 79 BPM GEMUSE Atrial Rate 79 BPM GEMUSE P-R Interval 272 ms GEMUSE QRS Duration 124 ms GEMUSE Q-T Interval 438 ms GEMUSE QTc 502 ms GEMUSE P Wave Cadwell 94 degrees GEMUSE R [place] 62 degrees GEMUSE T Cadwell 76 degrees GEMUSE ECG Interpretation Sinus rhythm [...] Result GEMUSE from Last 3 Months Insurance [facility] Member Subscriber Plan / Payer (Ef fective 2022-Present) Name:Andres Weiss Relation to Subscriber:Self Name:Andres Weiss Payer ID:[id number] Group ID:[id number] Type:Not on file Address: [place] [address] [place] [id number] Advance Directives * Full Code - Default [...] currently active code status orders. Care Teams Coding Tech Relationship Specialty Start Date End Date Barbara Peterson MD [address] [place] [address] , [address] [facility] D/B/A: [facility] JASEN Perez PCP - General Internal Medicine 08/31/24
== END 2024-09-13 13:33 | disposition home or self-care (01) ==
LOC: HO.MAMMO 13:32
PROVIDERS: PCP Internal Medicine; Visit Provider Urology
DX: Z13.820 Encounter for screening for osteoporosis (principal); C61 Malignant neoplasm of prostate; C77.2 Secondary and unspecified malignant neoplasm of intra-abdominal lymph nodes
CPT/HCPCS: 77080

== ENCOUNTER → 2024-09-13 14:00 | Outpatient (BNV) | payer OTHER, SELFPAY | PROVIDERS: PCP Internal Medicine; Visit Provider Radiology Diagnostic Radiology | DX: C61 Malignant neoplasm of prostate (principal) | CPT/HCPCS: 77080 ==

== ENCOUNTER 2024-09-24 10:13 | Outpatient (AMB) | payer OTHER, SELFPAY ==
--- NOTE | 2024-09-24 10:39 | AM.OFFVISNUR ---
Intake Visit Reasons: 2w injection Allergies No Known Allergies [No Known Allergies*] Allergy (Verified 09/06/24 11:34) Office Meds Eligard (6 month) 45 mg (6 month) subcutaneous syringe Performing Provider: Jian Russo MD Per[facility] Administered by: Chong Carlisle LPN on 09/24/24 10:39 Dose Route Admin Location Dispensed Lot Number Expiration Date [facility] [employer]rier 45 mg subcut right arm 45 mg [id number] 12/30/25 96719-239-21 [employer]. 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
--- OUTSIDE RECORDS SUMMARY | 2024-09-24 10:56 | XMS_ITS | Clinical Summary ---
Author Organization [facility] Address [address] [place] [address] Phone Care Team Providers Care Branner Machine Tender Name Role Phone Barbara Peterson MD Primary Care Provider [phone] Allergies No known active allergies Medications atenoloL [...] - 09/01/2024 12:57 PM EDT Hospital Encounter [facility] [address] [place] [address] Arden Potter DO Ishtiaq, Rizwan, MD Alam, Aroosa, MD Shortness of breath (Primary Dx); Acute systolic congestive heart failure ([facility] [place], [facility] [place] V28[place] Discharge Disposition: Home or Self Care from Last 3 Months Medical History Medical History Date Comments Hypertension Prostate cancer ([facility] [place] V24, [facility] [place] V28) A-fib ([facility] [place] V24, [facility] [place] V28[place] Pacemaker Social History Tobacco Use Types [...] AND DIFFERENTIAL STAT 08/31/2024 8:36 AM EDT [id number], RSV, FLU A AND B QUALITATIVE RT-PCR, [...] K/mcL LAB HEMETOLOGY METHOD 09/01/2024 6:28 AM [facility] RBC 4.20(L) 4.50 - 5.50 M/mcL LAB HEMETOLOGY METHOD 09/01/2024 6:28 AM [facility] Hemoglobin 12.6(L) 13.5 - 17.5 g/dL LAB HEMETOLOGY METHOD 09/01/2024 6:28 AM [facility] Hematocrit 39.8(L) 42.0 - 54.0 % LAB HEMETOLOGY METHOD 09/01/2024 6:28 AM [facility] MCV 94.5 79.0 - 98.0 FL LAB HEMETOLOGY METHOD 09/01/2024 6:28 AM [facility] MCH 29.9 27.0 - 32.0 pcg LAB HEMETOLOGY METHOD 09/01/2024 6:28 AM [facility] MCHC 31.7(L) 32.0 - 37.0 g/dL LAB HEMETOLOGY METHOD 09/01/2024 6:28 AM [facility] RDW 13.5 11.0 - 15.0 % LAB HEMETOLOGY METHOD 09/01/2024 6:28 AM [facility] Platelets 216 130 - 400 K/mcL LAB HEMETOLOGY METHOD 09/01/2024 6:28 AM [facility] MPV 10.0 7.0 - 11.0 FL LAB HEMETOLOGY METHOD 09/01/2024 6:28 AM [facility] NRBC 0.0 <1.0 % LAB HEMETOLOGY METHOD 09/01/2024 6:28 AM [facility] NRBC Absolute 0.00 <0.10 K/mcL LAB HEMETOLOGY METHOD 09/01/2024 6:28 AM [facility] Neutrophils Relative 67.0 % LAB HEMETOLOGY METHOD 09/01/2024 6:28 AM [facility] Lymphocytes Relative 19.2 % LAB HEMETOLOGY METHOD 09/01/2024 6:28 AM [facility] Monocytes Relative 9.3 % LAB HEMETOLOGY METHOD 09/01/2024 6:28 AM [facility] Eosinophils Relative 3.7 % LAB HEMETOLOGY METHOD 09/01/2024 6:28 AM [facility] Basophils Relative 0.4 % LAB HEMETOLOGY METHOD 09/01/2024 6:28 AM [facility] Immature Granulocytes Relative 0.4 % LAB HEMETOLOGY METHOD 09/01/2024 6:28 AM [facility] Neutrophils Absolute 3.59 1.50 - 7.00 K/mcL LAB HEMETOLOGY METHOD 09/01/2024 6:28 AM [facility] Lymphocytes Absolute 1.03 1.00 - 5.00 K/mcL LAB HEMETOLOGY METHOD 09/01/2024 6:28 AM [facility] Monocytes Absolute 0.50 0.20 - 1.00 K/mcL LAB HEMETOLOGY METHOD 09/01/2024 6:28 AM EDT [facility] Eosinophils Absolute 0.20 0.00 - 0.50 K/[facility] LAB HEMETOLOGY METHOD 09/01/2024 6:28 AM EDT [facility] Basophils Absolute 0.02 0.00 - 0.20 K/[facility] LAB HEMETOLOGY METHOD 09/01/2024 6:28 AM EDT [facility] Immature Granulocytes Absolute 0.02 0.00 - 0.03 K/[facility] LAB HEMETOLOGY METHOD 09/01/2024 6:28 AM EDT [facility] Blood Venous blood specimen / Unknown Venipuncture / Unknown 09/01/2024 5:54 AM EDT 09/01/2024 6:06 AM EDT us Willam Jovel MD LAB BLOOD ORDERABLES Final Res ult [facility] [address] [place] [address], [place] [phone] * (ABNORMAL) Prothrombin time with INR (09/01/2024 5:54 AM EDT) Only the most recent of2 resultswithin the time period is included. Protime 33.9(H) 10.6 - 13.9 sec LAB COAGULATION METHOD 09/01/2024 6:28 AM EDT [facility] INR 2.7 LAB COAGULATION METHOD 09/01/2024 6:28 AM EDT [facility] Blood Venous blood specimen / Unknown Venipuncture / Unknown 09/01/2024 5:54 AM EDT 09/01/2024 6:06 AM EDT us Willam Jovel MD LAB BLOOD ORDERABLES Final Res ult [facility] [address] [place] [address], [place] [phone] * Magnesium (09/01/2024 5:54 AM EDT) [facility] Magnesium 2.3 1.9 - 2.6 mg/dL LAB CHEMISTRY METHOD 09/01/2024 7:02 AM [facility] Blood Venous blood specimen / Unknown Venipuncture / Unknown 09/01/2024 5:54 AM EDT 09/01/2024 6:07 AM EDT Willam Jovel MD LAB BLOOD ORDERABLES Final Res ult [facility] [address] [place] [address], [place] [phone] * (ABNORMAL) Basic metabolic panel (09/01/2024 5:54 AM EDT) Only the most recent of2 resultswithin the time period is included. [facility] Sodium 138 133 - 145 mmol/L LAB CHEMISTRY METHOD 09/01/2024 7:02 AM [facility] Potassium 4.3 3.5 - 5.5 mmol/L LAB CHEMISTRY METHOD 09/01/2024 7:02 AM [facility] Chloride 104 96 - 110 mmol/L LAB CHEMISTRY METHOD 09/01/2024 7:02 AM [facility] CO2 29 21 - 32 mmol/L LAB CHEMISTRY METHOD 09/01/2024 7:02 AM [facility] Anion Gap 5 3 - 11 LAB CHEMISTRY METHOD 09/01/2024 7:02 AM [facility] Glucose 110(H) 70 - 100 mg/dL LAB CHEMISTRY METHOD 09/01/2024 7:02 AM [facility] BUN 15 5 - 25 mg/dL LAB CHEMISTRY METHOD 09/01/2024 7:02 AM EDT [facility] Creatinine 0.91 0.70 - 1.30 mg/dL LAB CHEMISTRY METHOD 09/01/2024 7:02 AM [facility] eGFR 92 >=60 mL/min/1. 73m2 LAB CHEMISTRY METHOD 09/01/2024 7:02 AM [facility] Comment:Calculation based on the??Chronic Kidney Disease Epidemiology Collaboration (CKD-EPI) equation refit??without adjustment for race. BUN/Creatinine Ratio 16.5 LAB CHEMISTRY METHOD 09/01/2024 7:02 AM [facility] Calcium 9.2 8.5 - 10.5 mg/dL LAB CHEMISTRY METHOD 09/01/2024 7:02 AM [facility] Blood Venous blood specimen / Unknown Venipuncture / Unknown 09/01/2024 5:54 AM EDT 09/01/2024 6:07 AM EDT us Willam Jovel MD LAB BLOOD ORDERABLES Final Res ult [facility] [address] [place] [address], [place] [phone] * (ABNORMAL) Urinalysis with reflex microscopic and culture (08/31/2024 1:42 PM EDT) Specific [place] Urine 1.011 1.003 - 1.030 LAB URINALYSIS - AUTOMATED METHOD 08/31/2024 2:36 PM [facility] pH, Urine 7.0 5.0 - 8.0 pH LAB URINALYSIS - AUTOMATED METHOD 08/31/2024 2:36 PM [facility] Leukocytes, Urine Negative Negative LAB URINALYSIS - AUTOMATED METHOD 08/31/2024 2:36 PM [facility] Nitrite, Urine Negative Negative LAB URINALYSIS - AUTOMATED METHOD 08/31/2024 2:36 PM [facility] Protein, Urine Negative <=Trace mg/dL LAB URINALYSIS - AUTOMATED METHOD 08/31/2024 2:36 PM [facility] Glucose, Urine Negative Negative mg/dL LAB URINALYSIS - AUTOMATED METHOD 08/31/2024 2:36 PM [facility] Ketones, Urine Negative Negative mg/dL LAB URINALYSIS - AUTOMATED METHOD 08/31/2024 2:36 PM [facility] Urobilinogen, Urine 0.2 0.2 - 1.0 mg/dL LAB URINALYSIS - AUTOMATED METHOD 08/31/2024 2:36 PM [facility] Bilirubin, Urine Negative Negative LAB URINALYSIS - AUTOMATED METHOD 08/31/2024 2:36 PM [facility] Blood, Urine Trace(A) Negative LAB URINALYSIS - AUTOMATED METHOD 08/31/2024 2:36 PM [facility] RBC, Urine 3.5 0 - 4 /HPF LAB URINALYSIS - AUTOMATED METHOD 08/31/2024 2:36 PM [facility] WBC, Urine 0.3 0 - 4 /HPF LAB URINALYSIS - AUTOMATED METHOD 08/31/2024 2:36 PM [facility] Squamous Epithelial, Urine 10 0 - 60 /LPF LAB URINALYSIS - AUTOMATED METHOD 08/31/2024 2:36 PM [facility] Bacteria, Urine Negative Negative /HPF LAB URINALYSIS - AUTOMATED METHOD 08/31/2024 2:36 PM [facility] Hyaline Casts, Urine 0.0 0 - 3 /LPF LAB URINALYSIS - AUTOMATED METHOD 08/31/2024 2:36 PM [facility] Urine Urine specimen obtained by clean catch procedure / Unknown Non-blood Collection / Unknown 08/31/2024 1:42 PM EDT 08/31/2024 2:17 PM EDT Willam Jovel MD LAB URINE ORDERABLES Final Res ult Performing Organization Address [facility]/ZIP Co de Phone Number [facility] [address] [place] [address], [place] [phone] * Patten urine culture tube (08/31/2024 1:42 PM EDT) Extra Tube Hold for add-ons. 08/31/2024 4:01 PM EDT [facility] Comment:Auto resulted. Urine Urine specimen obtained by clean catch procedure / Unknown Non-blood Collection / Unknown 08/31/2024 1:42 PM EDT 08/31/2024 2:17 PM EDT Willma Jovel MD LAB URINE ORDERABLES Final Res ult Performing Organization Address [facility] de Phone Number [facility] [address] [place] [address], [place] [phone] * CT Head wo Contrast (08/31/2024 10:03 [...] Signed Date: 08/31/2024 10:52 ET Workstation ID: [id number] Transcribed By: Self Edit Transcribed Date: 08/31/2024 [...] Signed Date: 08/31/2024 10:52 ET Workstation ID: [id number] Transcribed By: Self Edit Transcribed Date: 08/31/2024 10:31 ET us Arden Potter DO IMG CT PROCEDURES Final Result * Troponin I high sensitivity (08/31/2024 9:40 AM EDT) Only the most recent of2 resultswithin the time period is included. High Sensitivity Troponin I 27 <=79 ng/L LAB CHEMISTRY METHOD 08/31/2024 10:33 AM EDT [facility] Blood Venous blood specimen / Unknown Venipuncture / Unknown 08/31/2024 9:40 AM EDT 08/31/2024 9:57 AM EDT Narrative [facility] - 08/31/2024 10:33 AM EDT High levels of biotin in samples may falsely decrease hsTroponin values. ??Use caution when interpreting hsTroponin results in patients taking biotin who exhibit renal impairment (eGFR <60) or in patients taking more than 20 mg/day of biotin. Arden Potter DO LAB BLOOD ORDERABLES Final Res ult Performing Organization Address [facility]/ZIP Co de Phone Number [facility] [address] [place] [address], [place] [phone] * APTT (08/31/2024 9:40 AM EDT) aPTT 33.0 24.1 - 39.3 sec LAB COAGULATION METHOD 08/31/2024 10:16 AM EDT [facility] Blood Venous blood specimen / Unknown Venipuncture / Unknown 08/31/2024 9:40 AM EDT 08/31/2024 9:57 AM EDT Arden Potter DO LAB BLOOD ORDERABLES Final Res ult Performing Organization Address [facility]/ZIP Co de Phone Number [facility] [address] [place] [address], [place] [phone] * XR Chest 1 View (08/31/2024 9:16 [...] Signed Date: 08/31/2024 09:25 ET Workstation ID: [id number] Transcribed By: Self Edit Transcribed Date: 08/31/2024 [...] Signed Date: 08/31/2024 09:25 ET Workstation ID: [id number] Transcribed By: Self Edit Transcribed Date: 08/31/2024 09:25 ET Arden Potter DO IMG XR PROCEDURES Final Result * [id number], RSV, Influenza A and B qualitative RT-PCR (08/31/2024 8:36 AM EDT) Influenza A PCR Not Detected Not Detected LAB MICROBIOLOGY METHOD 08/31/2024 9:52 AM EDT [facility] Influenza B PCR Not Detected Not Detected LAB MICROBIOLOGY METHOD 08/31/2024 9:52 AM EDT [facility] RSV PCR Not Detected Not Detected LAB MICROBIOLOGY METHOD 08/31/2024 9:52 AM EDT [facility] SARS COV-2 Not Detected Not Detected LAB MICROBIOLOGY METHOD 08/31/2024 9:52 AM EDT [facility] Swab Nasopharyngeal structure / Unknown Non-blood Collection / Unknown 08/31/2024 8:36 AM EDT 08/31/2024 9:03 AM EDT Narrative [facility] - 08/31/2024 9:52 AM EDT Disclaimer: ??Testing was performed using the [employer] GeneXpert Xpress SARS-CoV-2 _Flu_RSV PLUS PCR assay. [...] for Healthcare providers can be found at https://www.fda.gov/media/880870/download. ?? Fact sheet for Healthcare patients can be found at https://www.fda.gov/media/302007/download. Arden Potter DO LAB MICROBIOLOGY - GENERAL ORD ERABLES Final Result [facility] [address] [place] [address], * Thyroid stimulating hormone with reflex to free t4 and free t3 (08/31/2024 8:36 AM EDT) TSH 2.17 0.40 - 4.00 mcIU/mL LAB CHEMISTRY METHOD 08/31/2024 3:44 PM EDT [facility] Blood Venous blood specimen / Unknown Venipuncture / Unknown 08/31/2024 8:36 AM EDT 08/31/2024 9:04 AM EDT us Willam Jovel MD LAB BLOOD ORDERABLES Final Res ult [facility] [address] [place] [address], [place] [phone] * Lipid panel with reflex to direct LDL (08/31/2024 8:36 AM EDT) Cholesterol 127 0 - 200 mg/dL LAB CHEMISTRY METHOD 08/31/2024 2:25 PM EDT [facility] Triglycerides 117 0 - 150 mg/dL LAB [facility]STR[facility]24 [facility] HDL 61 >=40 mg/dL LAB CHEMISTRY METHOD 08/31/2024 2:25 PM EDT [facility] LDL Calculated 43 0 - 100 mg/dL LAB CHEMISTRY METHOD 08/31/2024 2:25 PM EDT [facility] VLDL Cholesterol Darren 23.4 mg/dL LAB CHEMISTRY METHOD 08/31/2024 2:25 PM T [facility] Non HDL Chol. (LDL+VLDL) 66 <145 mg/dL LAB CHEMISTRY METHOD 08/31/2024 2:25 PM EDT [facility] Chol/HDL Ratio 2.1 0.0 - 4.4 LAB CHEMISTRY METHOD 08/31/2024 2:25 PM EDT [facility] Blood Venous blood specimen / Unknown Venipuncture / Unknown 08/31/2024 8:36 AM EDT 08/31/2024 9:04 AM EDT us Willam Jovel MD LAB BLOOD ORDERABLES Final Res ult [facility] [address] [place] [address], * (ABNORMAL) B-type natriuretic peptide (08/31/2024 8:36 AM EDT) [facility] BNP 102(H) <=100 pcg/mL LAB CHEMISTRY METHOD 08/31/2024 9:49 AM EDT [facility] Blood Venous blood specimen / Unknown Venipuncture / Unknown 08/31/2024 8:36 AM EDT 08/31/2024 9:04 AM EDT Arden Potter DO LAB BLOOD ORDERABLES Final Res ult Performing Organization Address [facility] Co de Phone Number [facility] [address] [place] [address], * Hemoglobin A1c (08/31/2024 8:36 AM EDT) [facility] Hemoglobin A1C 6.1 <6.5 % LAB CHEMISTRY METHOD 09/01/2024 2:20 PM EDT [facility] Mean Bld Glu Estim. 128 mg/dL LAB CHEMISTRY METHOD 09/01/2024 2:20 PM EDT [facility] Blood Venous blood specimen / Unknown Venipuncture / Unknown 08/31/2024 8:36 AM EDT 08/31/2024 9:04 AM EDT us Willam Jovel MD LAB BLOOD ORDERABLES Final Res ult [facility] [address] [place] [address], [place] [phone] * ECG 12 lead (08/31/2024 8:30 AM EDT) [facility] Ventricular Rate ECG 79 BPM GEMUSE Atrial Rate 79 BPM GEMUSE P-R Interval 272 ms GEMUSE QRS Duration 124 ms GEMUSE Q-T Interval 438 ms GEMUSE QTc 502 ms GEMUSE P Wave [place] 94 degrees GEMUSE R [place] 62 degrees GEMUSE T [place] 76 degrees GEMUSE ECG Interpretation Sinus rhythm [...] Result GEMUSE from Last 3 Months Insurance [facility] Member Subscriber Plan / Payer (Ef fective 2022-Present) Name:Andres Weiss Relation to Subscriber:Self Name:Andres Weiss Payer ID:[id number] Group ID:[id number] Type:Not on file Address: [place] [address] [address] [id number] Advance Directives * Full Code - Default [...] currently active code status orders. Care Teams Branner Machine Tender Relationship Specialty Start Date End Date Barbara Peterson MD [address] [place] [address] , [address] [facility] D[facility]A: [facility] JASEN Perez PCP - General Internal Medicine 08/31/24
== END 2024-09-24 11:00 | disposition home or self-care (01) ==
LOC: HO.HUSH 10:13
PROVIDERS: PCP Internal Medicine; Visit Provider Urology
DX: C61 Malignant neoplasm of prostate (principal); C77.2 Secondary and unspecified malignant neoplasm of intra-abdominal lymph nodes

== ENCOUNTER → 2024-09-24 10:13 | Outpatient (BNVA) | payer OTHER, SELFPAY | PROVIDERS: PCP Internal Medicine; Visit Provider Urology | DX: C61 Malignant neoplasm of prostate (principal); C77.2 Secondary and unspecified malignant neoplasm of intra-abdominal lymph nodes | CPT/HCPCS: 96402; J9217 ==

== ENCOUNTER 2024-09-27 09:42 | Outpatient (AMB) | payer OTHER, SELFPAY ==
[2024-09-27 10:03] LABS: Prothrombin Time Whole Bld POC 23.6 sec (11.1-13.5)
--- OUTSIDE RECORDS SUMMARY | 2024-09-27 10:05 | XMS_ITS | Clinical Summary ---
Author Organization [facility] Address [address] [place] [address] Phone Care Team Providers Care Tire Tester Name Role Phone Barbara Peterson MD Primary Care Provider [phone] Allergies No known active allergies Medications atenoloL [...] - 09/01/2024 12:57 PM EDT Hospital Encounter [facility] Unit [address] [place] [address] Arden Potter DO Ishtiaq, Rizwan, MD Alam, Aroosa, MD Shortness of breath (Primary Dx); Acute systolic congestive heart failure [place] [place] [facility] [place]28[place] Discharge Disposition: Home or Self Care from Last 3 Months Medical History Medical History Date Comments Hypertension Prostate cancer [place] [place] [facility] [place]28) A-fib ([facility] [place], [facility] [place]28[place] Pacemaker Social History Tobacco Use Types [...] AND DIFFERENTIAL STAT 08/31/2024 8:36 AM EDT [id number], RSV, FLU A AND B QUALITATIVE RT-PCR, [...] K/mcL LAB HEMETOLOGY METHOD 09/01/2024 6:28 AM [facility] RBC 4.20(L) 4.50 - 5.50 M/mcL LAB HEMETOLOGY METHOD 09/01/2024 6:28 AM [facility] Hemoglobin 12.6(L) 13.5 - 17.5 g/dL LAB HEMETOLOGY METHOD 09/01/2024 6:28 AM [facility] Hematocrit 39.8(L) 42.0 - 54.0 % LAB HEMETOLOGY METHOD 09/01/2024 6:28 AM [facility] MCV 94.5 79.0 - 98.0 FL LAB HEMETOLOGY METHOD 09/01/2024 6:28 AM [facility] MCH 29.9 27.0 - 32.0 pcg LAB HEMETOLOGY METHOD 09/01/2024 6:28 AM [facility] MCHC 31.7(L) 32.0 - 37.0 g/dL LAB HEMETOLOGY METHOD 09/01/2024 6:28 AM [facility] RDW 13.5 11.0 - 15.0 % LAB HEMETOLOGY METHOD 09/01/2024 6:28 AM [facility] Platelets 216 130 - 400 K/mcL LAB HEMETOLOGY METHOD 09/01/2024 6:28 AM [facility] MPV 10.0 7.0 - 11.0 FL LAB HEMETOLOGY METHOD 09/01/2024 6:28 AM [facility] NRBC 0.0 <1.0 % LAB HEMETOLOGY METHOD 09/01/2024 6:28 AM [facility] NRBC Absolute 0.00 <0.10 K/mcL LAB HEMETOLOGY METHOD 09/01/2024 6:28 AM [facility] Neutrophils Relative 67.0 % LAB HEMETOLOGY METHOD 09/01/2024 6:28 AM [facility] Lymphocytes Relative 19.2 % LAB HEMETOLOGY METHOD 09/01/2024 6:28 AM [facility] Monocytes Relative 9.3 % LAB HEMETOLOGY METHOD 09/01/2024 6:28 AM [facility] Eosinophils Relative 3.7 % LAB HEMETOLOGY METHOD 09/01/2024 6:28 AM [facility] Basophils Relative 0.4 % LAB HEMETOLOGY METHOD 09/01/2024 6:28 AM [facility] Immature Granulocytes Relative 0.4 % LAB HEMETOLOGY METHOD 09/01/2024 6:28 AM [facility] Neutrophils Absolute 3.59 1.50 - 7.00 K/mcL LAB HEMETOLOGY METHOD 09/01/2024 6:28 AM [facility] Lymphocytes Absolute 1.03 1.00 - 5.00 K/mcL LAB HEMETOLOGY METHOD 09/01/2024 6:28 AM [facility] Monocytes Absolute 0.50 0.20 - 1.00 K/mcL LAB HEMETOLOGY METHOD 09/01/2024 6:28 AM EDT [facility] Eosinophils Absolute 0.20 0.00 - 0.50 K/[facility] LAB HEMETOLOGY METHOD 09/01/2024 6:28 AM EDT [facility] Basophils Absolute 0.02 0.00 - 0.20 K/[facility] LAB HEMETOLOGY METHOD 09/01/2024 6:28 AM EDT [facility] Immature Granulocytes Absolute 0.02 0.00 - 0.03 K/[facility] LAB HEMETOLOGY METHOD 09/01/2024 6:28 AM EDT [facility] Blood Venous blood specimen / Unknown Venipuncture / Unknown 09/01/2024 5:54 AM EDT 09/01/2024 6:06 AM EDT us Willam Jovel MD LAB BLOOD ORDERABLES Final Res ult [facility] [address] [place] [address], [place] [phone] * (ABNORMAL) Prothrombin time with INR (09/01/2024 5:54 AM EDT) Only the most recent of2 resultswithin the time period is included. Protime 33.9(H) 10.6 - 13.9 sec LAB COAGULATION METHOD 09/01/2024 6:28 AM EDT [facility] INR 2.7 LAB COAGULATION METHOD 09/01/2024 6:28 AM EDT [facility] Blood Venous blood specimen / Unknown Venipuncture / Unknown 09/01/2024 5:54 AM EDT 09/01/2024 6:06 AM EDT us Willam Jovel MD LAB BLOOD ORDERABLES Final Res ult [facility] [address] [place] [address], [place] [phone] * Magnesium (09/01/2024 5:54 AM EDT) [facility] Magnesium 2.3 1.9 - 2.6 mg/dL LAB CHEMISTRY METHOD 09/01/2024 7:02 AM [facility] Blood Venous blood specimen / Unknown Venipuncture / Unknown 09/01/2024 5:54 AM EDT 09/01/2024 6:07 AM EDT Willam Jovel MD LAB BLOOD ORDERABLES Final Res ult [facility] [address] [place] [address], [place] [phone] * (ABNORMAL) Basic metabolic panel (09/01/2024 5:54 AM EDT) Only the most recent of2 resultswithin the time period is included. [facility] Sodium 138 133 - 145 mmol/L LAB CHEMISTRY METHOD 09/01/2024 7:02 AM [facility] Potassium 4.3 3.5 - 5.5 mmol/L LAB CHEMISTRY METHOD 09/01/2024 7:02 AM [facility] Chloride 104 96 - 110 mmol/L LAB CHEMISTRY METHOD 09/01/2024 7:02 AM [facility] CO2 29 21 - 32 mmol/L LAB CHEMISTRY METHOD 09/01/2024 7:02 AM [facility] Anion Gap 5 3 - 11 LAB CHEMISTRY METHOD 09/01/2024 7:02 AM [facility] Glucose 110(H) 70 - 100 mg/dL LAB CHEMISTRY METHOD 09/01/2024 7:02 AM [facility] BUN 15 5 - 25 mg/dL LAB CHEMISTRY METHOD 09/01/2024 7:02 AM EDT [facility] Creatinine 0.91 0.70 - 1.30 mg/dL LAB CHEMISTRY METHOD 09/01/2024 7:02 AM [facility] eGFR 92 >=60 mL/min/1. 73m2 LAB CHEMISTRY METHOD 09/01/2024 7:02 AM [facility] Comment:Calculation based on the??Chronic Kidney Disease Epidemiology Collaboration (CKD-EPI) equation refit??without adjustment for race. BUN/Creatinine Ratio 16.5 LAB CHEMISTRY METHOD 09/01/2024 7:02 AM [facility] Calcium 9.2 8.5 - 10.5 mg/dL LAB CHEMISTRY METHOD 09/01/2024 7:02 AM [facility] Blood Venous blood specimen / Unknown Venipuncture / Unknown 09/01/2024 5:54 AM EDT 09/01/2024 6:07 AM EDT us Willam Jovel MD LAB BLOOD ORDERABLES Final Res ult [facility] [address] [place] [address], [place] [phone] * (ABNORMAL) Urinalysis with reflex microscopic and culture (08/31/2024 1:42 PM EDT) Specific [place] Urine 1.011 1.003 - 1.030 LAB URINALYSIS - AUTOMATED METHOD 08/31/2024 2:36 PM [facility] pH, Urine 7.0 5.0 - 8.0 pH LAB URINALYSIS - AUTOMATED METHOD 08/31/2024 2:36 PM [facility] Leukocytes, Urine Negative Negative LAB URINALYSIS - AUTOMATED METHOD 08/31/2024 2:36 PM [facility] Nitrite, Urine Negative Negative LAB URINALYSIS - AUTOMATED METHOD 08/31/2024 2:36 PM [facility] Protein, Urine Negative <=Trace mg/dL LAB URINALYSIS - AUTOMATED METHOD 08/31/2024 2:36 PM [facility] Glucose, Urine Negative Negative mg/dL LAB URINALYSIS - AUTOMATED METHOD 08/31/2024 2:36 PM [facility] Ketones, Urine Negative Negative mg/dL LAB URINALYSIS - AUTOMATED METHOD 08/31/2024 2:36 PM [facility] Urobilinogen, Urine 0.2 0.2 - 1.0 mg/dL LAB URINALYSIS - AUTOMATED METHOD 08/31/2024 2:36 PM [facility] Bilirubin, Urine Negative Negative LAB URINALYSIS - AUTOMATED METHOD 08/31/2024 2:36 PM [facility] Blood, Urine Trace(A) Negative LAB URINALYSIS - AUTOMATED METHOD 08/31/2024 2:36 PM [facility] RBC, Urine 3.5 0 - 4 /HPF LAB URINALYSIS - AUTOMATED METHOD 08/31/2024 2:36 PM [facility] WBC, Urine 0.3 0 - 4 /HPF LAB URINALYSIS - AUTOMATED METHOD 08/31/2024 2:36 PM [facility] Squamous Epithelial, Urine 10 0 - 60 /LPF LAB URINALYSIS - AUTOMATED METHOD 08/31/2024 2:36 PM [facility] Bacteria, Urine Negative Negative /HPF LAB URINALYSIS - AUTOMATED METHOD 08/31/2024 2:36 PM [facility] Hyaline Casts, Urine 0.0 0 - 3 /LPF LAB URINALYSIS - AUTOMATED METHOD 08/31/2024 2:36 PM [facility] Urine Urine specimen obtained by clean catch procedure / Unknown Non-blood Collection / Unknown 08/31/2024 1:42 PM EDT 08/31/2024 2:17 PM EDT Willam Jovel MD LAB URINE ORDERABLES Final Res ult Performing Organization Address [facility]/ZIP Co de Phone Number [facility] [address] [place] [address], [place] [phone] * Patten urine culture tube (08/31/2024 1:42 PM EDT) Extra Tube Hold for add-ons. 08/31/2024 4:01 PM EDT [facility] Comment:Auto resulted. Urine Urine specimen obtained by clean catch procedure / Unknown Non-blood Collection / Unknown 08/31/2024 1:42 PM EDT 08/31/2024 2:17 PM EDT Willam Jovel MD LAB URINE ORDERABLES Final Res ult Performing Organization Address [facility] de Phone Number [facility] [address] [place] [address], [place] [phone] * CT Head wo Contrast (08/31/2024 10:03 [...] Signed Date: 08/31/2024 10:52 ET Workstation ID: [id number] Transcribed By: Self Edit Transcribed Date: 08/31/2024 [...] Signed Date: 08/31/2024 10:52 ET Workstation ID: [id number] Transcribed By: Self Edit Transcribed Date: 08/31/2024 10:31 ET us Aredn Potter DO IMG CT PROCEDURES Final Result * Troponin I high sensitivity (08/31/2024 9:40 AM EDT) Only the most recent of2 resultswithin the time period is included. High Sensitivity Troponin I 27 <=79 ng/L LAB CHEMISTRY METHOD 08/31/2024 10:33 AM EDT [facility] Blood Venous blood specimen / Unknown Venipuncture / Unknown 08/31/2024 9:40 AM EDT 08/31/2024 9:57 AM EDT Narrative [facility] - 08/31/2024 10:33 AM EDT High levels of biotin in samples may falsely decrease hsTroponin values. ??Use caution when interpreting hsTroponin results in patients taking biotin who exhibit renal impairment (eGFR <60) or in patients taking more than 20 mg/day of biotin. Arden Potter DO LAB BLOOD ORDERABLES Final Res ult Performing Organization Address [facility]/ZIP Co de Phone Number [facility] [address] [place] [address], [place] [phone] * APTT (08/31/2024 9:40 AM EDT) aPTT 33.0 24.1 - 39.3 sec LAB COAGULATION METHOD 08/31/2024 10:16 AM EDT [facility] Blood Venous blood specimen / Unknown Venipuncture / Unknown 08/31/2024 9:40 AM EDT 08/31/2024 9:57 AM EDT Arden Potter DO LAB BLOOD ORDERABLES Final Res ult Performing Organization Address [facility]/ZIP Co de Phone Number [facility] [address] [place] [address], [place] [phone] * XR Chest 1 View (08/31/2024 9:16 [...] Signed Date: 08/31/2024 09:25 ET Workstation ID: [id number] Transcribed By: Self Edit Transcribed Date: 08/31/2024 [...] Signed Date: 08/31/2024 09:25 ET Workstation ID: [id number] Transcribed By: Self Edit Transcribed Date: 08/31/2024 09:25 ET Arden Potter DO IMG XR PROCEDURES Final Result * [id number], RSV, Influenza A and B qualitative RT-PCR (08/31/2024 8:36 AM EDT) Influenza A PCR Not Detected Not Detected LAB MICROBIOLOGY METHOD 08/31/2024 9:52 AM EDT [facility] Influenza B PCR Not Detected Not Detected LAB MICROBIOLOGY METHOD 08/31/2024 9:52 AM EDT [facility] RSV PCR Not Detected Not Detected LAB MICROBIOLOGY METHOD 08/31/2024 9:52 AM EDT [facility] SARS COV-2 Not Detected Not Detected LAB MICROBIOLOGY METHOD 08/31/2024 9:52 AM EDT [facility] Swab Nasopharyngeal structure / Unknown Non-blood Collection / Unknown 08/31/2024 8:36 AM EDT 08/31/2024 9:03 AM EDT Narrative [facility] - 08/31/2024 9:52 AM EDT Disclaimer: ??Testing was performed using the [employer] GeneXpert Xpress SARS-CoV-2 _Flu_RSV PLUS PCR assay. [...] for Healthcare providers can be found at https://www.fda.gov/media/015481/download. ?? Fact sheet for Healthcare patients can be found at https://www.fda.gov/media/664597/download. Arden Potter DO LAB MICROBIOLOGY - GENERAL ORD ERABLES Final Result [facility] [address] [place] [address], * Thyroid stimulating hormone with reflex to free t4 and free t3 (08/31/2024 8:36 AM EDT) TSH 2.17 0.40 - 4.00 mcIU/mL LAB CHEMISTRY METHOD 08/31/2024 3:44 PM EDT [facility] Blood Venous blood specimen / Unknown Venipuncture / Unknown 08/31/2024 8:36 AM EDT 08/31/2024 9:04 AM EDT us Willam Jovel MD LAB BLOOD ORDERABLES Final Res ult [facility] [address] [place] [address], [place] [phone] * Lipid panel with reflex to direct LDL (08/31/2024 8:36 AM EDT) Cholesterol 127 0 - 200 mg/dL LAB CHEMISTRY METHOD 08/31/2024 2:25 PM EDT [facility] Triglycerides 117 0 - 150 mg/dL LAB CHE[facility]STRY METHOD [facility]24 [facility] HDL 61 >=40 mg/dL LAB CHEMISTRY METHOD 08/31/2024 2:25 PM EDT [facility] LDL Calculated 43 0 - 100 mg/dL LAB CHEMISTRY METHOD 08/31/2024 2:25 PM EDT [facility] VLDL Cholesterol Darren 23.4 mg/dL LAB CHEMISTRY METHOD 08/31/2024 2:25 PM T [facility] Non HDL Chol. (LDL+VLDL) 66 <145 mg/dL LAB CHEMISTRY METHOD 08/31/2024 2:25 PM EDT [facility] Chol/HDL Ratio 2.1 0.0 - 4.4 LAB CHEMISTRY METHOD 08/31/2024 2:25 PM EDT [facility] Blood Venous blood specimen / Unknown Venipuncture / Unknown 08/31/2024 8:36 AM EDT 08/31/2024 9:04 AM EDT us Willam Jovel MD LAB BLOOD ORDERABLES Final Res ult [facility] [address] [place] [address], * (ABNORMAL) B-type natriuretic peptide (08/31/2024 8:36 AM EDT) [facility] BNP 102(H) <=100 pcg/mL LAB CHEMISTRY METHOD 08/31/2024 9:49 AM EDT [facility] Blood Venous blood specimen / Unknown Venipuncture / Unknown 08/31/2024 8:36 AM EDT 08/31/2024 9:04 AM EDT Arden Potter DO LAB BLOOD ORDERABLES Final Res ult Performing Organization Address [facility] Co de Phone Number [facility] [address] [place] [address], * Hemoglobin A1c (08/31/2024 8:36 AM EDT) [facility] Hemoglobin A1C 6.1 <6.5 % LAB CHEMISTRY METHOD 09/01/2024 2:20 PM EDT [facility] Mean Bld Glu Estim. 128 mg/dL LAB CHEMISTRY METHOD 09/01/2024 2:20 PM EDT [facility] Blood Venous blood specimen / Unknown Venipuncture / Unknown 08/31/2024 8:36 AM EDT 08/31/2024 9:04 AM EDT us Willam Jovel MD LAB BLOOD ORDERABLES Final Res ult [facility] [address] [place] [address], [place] [phone] * ECG 12 lead (08/31/2024 8:30 AM EDT) [facility] Ventricular Rate ECG 79 BPM GEMUSE Atrial Rate 79 BPM GEMUSE P-R Interval 272 ms GEMUSE QRS Duration 124 ms GEMUSE Q-T Interval 438 ms GEMUSE QTc 502 ms GEMUSE P [place] 94 degrees GEMUSE R [place] 62 degrees GEMUSE [place] 76 degrees GEMUSE ECG Interpretation Sinus rhythm [...] GEMUSE from Last 3 Months Insurance [facility] Member Subscriber Plan / Payer (Ef fective 2022-Present) Name:Andres Weiss Relation to Subscriber:Self Name:Andres Weiss Payer ID:[id number] Group ID:[id number] Type:Not on file Address: [place] [address] [address] [id number] Advance Directives * Full Code - Default [...] currently active code status orders. Care Teams Tire Tester Relationship Specialty Start Date End Date Barbara Peterson MD [address] [place] [address] , [address] [facility] D/B/A: [facility] JASEN Perez PCP - General Internal Medicine 08/31/24
--- NOTE | 2024-09-27 10:07 | MHC.OFFVISCO ---
Intake Intake Visit Reasons: Anticoagulation Allergies No Known Allergies [No Known Allergies*] Allergy (Verified 09/27/24 09:58) Medication List - Last Reconciled 09/27/24 by Brissa Daniels RN acetaminophen 650 mg PO Q6H PRN atenolol 50 mg PO DAILY atorvastatin 40 mg PO BEDTIME [compression stockings knee-high 20 mmHg] darolutamide 600 mg (2 x 300 mg) PO BID 30 days darolutamide (Nubeqa) 600 mg (2 x 300 mg) PO BID furosemide 40 mg PO QAM lactulose 15 mL PO DAILY lisinopril 20 mg PO DAILY 90 days oxycodone-acetaminophen 5-325 mg 1 tab PO Q12H PRN 30 days potassium chloride ER (Klor-Con M) 20 mEq PO QAM warfarin 5 mg See Protocol PO DAILY 90 days Nursing Note INR: 2.0 out of therapeutic range of 2.5-3.0 Pt denies missed dose Medications and supplements reviewed Patient status: well Medications or supplements: no changes Diet: no changes Denies any signs and symptoms of bleeding or clotting or unusual bruising Bleeding, bruising, clotting discussed Nutritional guidance given: to avoid greens today and to focus on foods that raise the INR. Food list discussed. Dose: increase today's dose to 7.5mg (5mg) then 5mg daily F/U INR Date: 2 weeks suggested but pt insisted on 3 weeks?? Patient verbalizing understanding of instructions with read back given. Anti-Coag Initial Assessment Social Hx Patient Tobacco Use Status: Never used Tobacco alcohol intake: current Alcohol intake frequency: holidays/special occasions only Cardiovascular Hx: HTN, Arrhythmias and Cardiomyopathy Musculoskeletal Hx: Other Blood Disorder Hx: Hyperlipidemia Hx: Prostate Neurological Hx: Stroke/TIA Cancer HX: Yes (prostate) Psych. Illness/Depression: No Coding Level of Care Code Est Patient Level 1 Diagnoses Current use of anticoagulant therapy Z79.01 Assessment & Plan Assessment & Plan (1) Current use of anticoagulant therapy: Code(s): Z79.01 - FDC (current) use of anticoagulants Category: Medical
== END 2024-09-27 12:12 | disposition home or self-care (01) ==
PROVIDERS: PCP Internal Medicine; Visit Provider Internal Medicine Medical Oncology
DX: Z79.01 Long term (current) use of anticoagulants (principal)

== ENCOUNTER → 2024-09-27 09:42 | Outpatient (BNVA) | payer OTHER, SELFPAY | PROVIDERS: PCP Internal Medicine; Visit Provider Internal Medicine Medical Oncology | DX: Z95.2 Presence of prosthetic heart valve (principal); Z79.01 Long term (current) use of anticoagulants; Z51.81 Encounter for therapeutic drug level monitoring | CPT/HCPCS: 85610; 99211 ==

== ENCOUNTER 2024-11-11 10:02 | Outpatient (AMB) | payer OTHER, SELFPAY ==
[2024-11-11 10:10] LABS: Prothrombin Time Whole Bld POC 45.6 sec (11.1-13.5); ~PT, ~INR - Anti Coag Clinic 3.8 (0.9-1.1)
--- NOTE | 2024-11-11 10:14 | MHC.OFFVISCO ---
Intake Intake Visit Reasons: Anticoagulation Allergies No Known Allergies (No Known Allergies*) Allergy (Verified 11/11/24 10:05) Medication List - Last Reconciled 11/11/24 by Brissa Daniels RN acetaminophen 650 mg PO Q6H PRN atenolol 50 mg PO DAILY atorvastatin 40 mg PO BEDTIME [compression stockings knee-high 20 mmHg] darolutamide 600 mg (2 x 300 mg) PO BID 30 days darolutamide (Nubeqa) 600 mg (2 x 300 mg) PO BID furosemide 40 mg PO QAM lactulose 15 mL PO DAILY lisinopril 20 mg PO DAILY 90 days oxycodone-acetaminophen 5-325 mg 1 tab PO Q12H PRN 30 days potassium chloride ER (Klor-Con M) 20 mEq PO QAM warfarin 5 mg See Protocol PO DAILY 90 days Nursing Note INR: 3.8 out of therapeutic range of 2.5-3.0 Medications and supplements reviewed Patient status: pt states he feels great Medications or supplements: no changes Diet: usual diet for pt Denies any signs and symptoms of bleeding or clotting or unusual bruising Bleeding, bruising, clotting discussed Nutritional guidance given: to have a serving of greens today. Pt states he will have some cabbage. Dose: decrease today's dose to 2.5mg (5mg) then 5mg daily F/U INR Date: 4 weeks?? Patient verbalizing understanding of instructions given. Anti-Coag Initial Assessment Social Hx Patient Tobacco Use Status: Never used Tobacco alcohol intake: current Alcohol intake frequency: holidays/special occasions only Cardiovascular Hx: HTN, Arrhythmias and Cardiomyopathy Musculoskeletal Hx: Other Blood Disorder Hx: Hyperlipidemia Hx: Prostate Neurological Hx: Stroke/TIA Cancer HX: Yes (prostate) Psych. Illness/Depression: No Coding Level of Care Code Est Patient Level 1 Diagnoses Current use of anticoagulant therapy Z79.01 Assessment & Plan Assessment & Plan (1) Current use of anticoagulant therapy: Code(s): Z79.01 - long term care pharmacist (current) use of anticoagulants Category: Medical
--- OUTSIDE RECORDS SUMMARY | 2024-11-11 10:41 | XMS_ITS | Clinical Summary ---
Author Organization [facility] Address [address] [place] [address] Phone Care Team Providers Care Chicken Stuffer Name Role Phone Barbara Peterson MD Primary Care Provider [phone] Allergies No known active allergies Medications atenoloL [...] - 09/01/2024 12:57 PM EDT Hospital Encounter [facility] Unit [address] [place] [address] Arden Potter DO Ishtiaq, Rizwan, MD Alam, Aroosa, MD Shortness of breath (Primary Dx); Acute systolic congestive heart failure [place] [place] [facility] [place] Discharge Disposition: Home or Self Care from Last 3 Months Medical History Medical History Date Comments Hypertension Prostate cancer [place] [place] [facility] [place] A-fib [place] [place], [facility] [place] Pacemaker Social History Tobacco Use Types [...] 81 09/01/2024 7:59 AM EDT Temperature 36.5 C (97.7 F) 09/01/2024 7:59 AM EDT Respiratory Rate 20 09/01/2024 7:59 AM EDT [...] Cancer Screening: Colonoscopy 03/29/2022 Depression Screening 03/29/2022 Medicare Annual Wellness Visit 03/29/2022 Social Influencers of Health Screening 03/29/2022 COVID-19 Vaccine (7 - Pfizer risk season) 2024 02/21/2024, 04/21/2023, 07/30/2021, Additional history exists Influenza Vaccine (#1) 2024 02/21/2024, 2022 Falls Risk Assessment 09/01/2025 09/01/2024 Hypertension/CHF/CAD Annual BMP Blood Test 09/01/2025 09/01/2024, 08/31/2024 Cholesterol Screening (Lipid Panel) 08/31/2029 08/31/2024, 12/15/2021 Hepatitis C Screening Completed 12/29/2021 Pneumococcal Vaccine: 50+ Years Completed 02/21/2024, 01/13/2017 [...] EDT PATTEN URINE CULTURE TUBE Routine 09/01/19 25 1:42 PM EDT URINALYSIS WITH REFLEX MICROSCOPIC [...] AND DIFFERENTIAL STAT 08/31/2024 8:36 AM EDT [id number], RSV, FLU A AND B QUALITATIVE RT-PCR, [...] K/mcL LAB HEMETOLOGY METHOD 09/01/2024 6:28 AM [facility] RBC 4.20(L) 4.50 - 5.50 M/mcL LAB HEMETOLOGY METHOD 09/01/2024 6:28 AM [facility] Hemoglobin 12.6(L) 13.5 - 17.5 g/dL LAB HEMETOLOGY METHOD 09/01/2024 6:28 AM [facility] Hematocrit 39.8(L) 42.0 - 54.0 % LAB HEMETOLOGY METHOD 09/01/2024 6:28 AM [facility] MCV 94.5 79.0 - 98.0 FL LAB HEMETOLOGY METHOD 09/01/2024 6:28 AM [facility] MCH 29.9 27.0 - 32.0 pcg LAB HEMETOLOGY METHOD 09/01/2024 6:28 AM [facility] MCHC 31.7(L) 32.0 - 37.0 g/dL LAB HEMETOLOGY METHOD 09/01/2024 6:28 AM [facility] RDW 13.5 11.0 - 15.0 % LAB HEMETOLOGY METHOD 09/01/2024 6:28 AM [facility] Platelets 216 130 - 400 K/mcL LAB HEMETOLOGY METHOD 09/01/2024 6:28 AM [facility] MPV 10.0 7.0 - 11.0 FL LAB HEMETOLOGY METHOD 09/01/2024 6:28 AM [facility] NRBC 0.0 <1.0 % LAB HEMETOLOGY METHOD 09/01/2024 6:28 AM [facility] NRBC Absolute 0.00 <0.10 K/mcL LAB HEMETOLOGY METHOD 09/01/2024 6:28 AM [facility] Neutrophils Relative 67.0 % LAB HEMETOLOGY METHOD 09/01/2024 6:28 AM [facility] Lymphocytes Relative 19.2 % LAB HEMETOLOGY METHOD 09/01/2024 6:28 AM [facility] Monocytes Relative 9.3 % LAB HEMETOLOGY METHOD 09/01/2024 6:28 AM [facility] Eosinophils Relative 3.7 % LAB HEMETOLOGY METHOD 09/01/2024 6:28 AM [facility] Basophils Relative 0.4 % LAB HEMETOLOGY METHOD 09/01/2024 6:28 AM [facility] Immature Granulocytes Relative 0.4 % LAB HEMETOLOGY METHOD 09/01/2024 6:28 AM [facility] Neutrophils Absolute 3.59 1.50 - 7.00 K/mcL LAB HEMETOLOGY METHOD 09/01/2024 6:28 AM [facility] Lymphocytes Absolute 1.03 1.00 - 5.00 K/mcL LAB HEMETOLOGY METHOD 09/01/2024 6:28 AM EDT [facility] Monocytes Absolute 0.50 0.20 - 1.00 K/mcL LAB HEMETOLOGY METHOD 09/01/2024 6:28 AM EDT [facility] Eosinophils Absolute 0.20 0.00 - 0.50 K/mcL LAB HEMETOLOGY METHOD 09/01/2024 6:28 AM EDT [facility] Basophils Absolute 0.02 0.00 - 0.20 K/mcL LAB HEMETOLOGY METHOD 09/01/2024 6:28 AM EDT [facility] Immature Granulocytes Absolute 0.02 0.00 - 0.03 K/mcL LAB HEMETOLOGY METHOD 09/01/2024 6:28 AM EDT [facility] Blood Venous blood specimen / Unknown Venipuncture / Unknown 09/01/2024 5:54 AM EDT 09/01/2024 6:06 AM EDT us Willam Jovel MD LAB BLOOD ORDERABLES Final Res ult [facility] [address] [place] [address], [place] [phone] * (ABNORMAL) Prothrombin time with INR (09/01/2024 5:54 AM EDT) Only the most recent of2 resultswithin the time period is included. Protime 33.9(H) 10.6 - 13.9 sec LAB COAGULATION METHOD 09/01/2024 6:28 AM EDT [facility] INR 2.7 LAB COAGULATION METHOD 09/01/2024 6:28 AM EDT [facility] Blood Venous blood specimen / Unknown Venipuncture / Unknown 09/01/2024 5:54 AM EDT 09/01/2024 6:06 AM EDT Willam Jovel MD LAB BLOOD ORDERABLES Final Res ult Performing Organization Address City/[facility]/ZIP Co de Phone Number [facility] [address] [place] [address], [place] [phone] * Magnesium (09/01/2024 5:54 AM EDT) Pathologist [facility] Magnesium 2.3 1.9 - 2.6 mg/dL LAB CHEMISTRY METHOD 09/01/2024 7:02 AM EDT [facility] Blood Venous blood specimen / Unknown Venipuncture / Unknown 09/01/2024 5:54 AM EDT 09/01/2024 6:07 AM EDT Willam Jovel MD LAB BLOOD ORDERABLES Final Res ult Performing Organization Address [facility]/ZIP Co de Phone Number [facility] [address] [place] [address], [place] [phone] * (ABNORMAL) Basic metabolic panel (09/01/2024 5:54 AM EDT) Only the most recent of2 resultswithin the time period is included. Pathologist [facility] Sodium 138 133 - 145 mmol/L LAB CHEMISTRY METHOD 09/01/2024 7:02 AM [facility] Potassium 4.3 3.5 - 5.5 mmol/L LAB CHEMISTRY METHOD 09/01/2024 7:02 AM [facility] Chloride 104 96 - 110 mmol/L LAB CHEMISTRY METHOD 09/01/2024 7:02 AM [facility] CO2 29 21 - 32 mmol/L LAB CHEMISTRY METHOD 09/01/2024 7:02 AM [facility] Anion Gap 5 3 - 11 LAB CHEMISTRY METHOD 09/01/2024 7:02 AM [facility] Glucose 110(H) 70 - 100 mg/dL LAB CHEMISTRY METHOD 09/01/2024 7:02 AM [facility] BUN 15 5 - 25 mg/dL LAB CHEMISTRY METHOD 09/01/2024 7:02 AM T [facility] Creatinine 0.91 0.70 - 1.30 mg/dL LAB CHEMISTRY METHOD 09/01/2024 7:02 AM [facility] eGFR 92 >=60 mL/min/1. 73m2 LAB CHEMISTRY METHOD 09/01/2024 7:02 AM [facility] Comment:Calculation based on the Chronic Kidney Disease Epidemiology Collaboration (CKD-EPI) equation refit without adjustment for race. BUN/Creatinine Ratio 16.5 LAB CHEMISTRY METHOD 09/01/2024 7:02 AM [facility] Calcium 9.2 8.5 - 10.5 mg/dL LAB CHEMISTRY METHOD 09/01/2024 7:02 AM [facility] Blood Venous blood specimen / Unknown Venipuncture / Unknown 09/01/2024 5:54 AM EDT 09/01/2024 6:07 AM EDT us Willam Jovel MD LAB BLOOD ORDERABLES Final Res ult [facility] [address] [place] [address], [place] [phone] * (ABNORMAL) Urinalysis with reflex microscopic and culture (08/31/2024 1:42 PM EDT) Specific [place] Urine 1.011 1.003 - 1.030 LAB URINALYSIS - AUTOMATED METHOD 08/31/2024 2:36 PM EDT [facility] pH, Urine 7.0 5.0 - 8.0 pH LAB URINALYSIS - AUTOMATED METHOD 08/31/2024 2:36 PM T [facility] Leukocytes, Urine Negative Negative LAB URINALYSIS - AUTOMATED METHOD 08/31/2024 2:36 PM EDT [facility] Nitrite, Urine Negative Negative LAB URINALYSIS - AUTOMATED METHOD 08/31/2024 2:36 PM [facility] Protein, Urine Negative <=Trace mg/dL LAB URINALYSIS - AUTOMATED METHOD 08/31/2024 2:36 PM [facility] Glucose, Urine Negative Negative mg/dL LAB URINALYSIS - AUTOMATED METHOD 08/31/2024 2:36 PM [facility] Ketones, Urine Negative Negative mg/dL LAB URINALYSIS - AUTOMATED METHOD 08/31/2024 2:36 PM [facility] Urobilinogen, Urine 0.2 0.2 - 1.0 mg/dL LAB URINALYSIS - AUTOMATED METHOD 08/31/2024 2:36 PM [facility] Bilirubin, Urine Negative Negative LAB URINALYSIS - AUTOMATED METHOD 08/31/2024 2:36 PM [facility] Blood, Urine Trace(A) Negative LAB URINALYSIS - AUTOMATED METHOD 08/31/2024 2:36 PM [facility] RBC, Urine 3.5 0 - 4 /HPF LAB URINALYSIS - AUTOMATED METHOD 08/31/2024 2:36 PM [facility] WBC, Urine 0.3 0 - 4 /HPF LAB URINALYSIS - AUTOMATED METHOD 08/31/2024 2:36 PM [facility] Squamous Epithelial, Urine 10 0 - 60 /LPF LAB URINALYSIS - AUTOMATED METHOD 08/31/2024 2:36 PM [facility] Bacteria, Urine Negative Negative /HPF LAB URINALYSIS - AUTOMATED METHOD 08/31/2024 2:36 PM [facility] Hyaline Casts, Urine 0.0 0 - 3 /LPF LAB URINALYSIS - AUTOMATED METHOD 08/31/2024 2:36 PM [facility] Urine Urine specimen obtained by clean catch procedure / Unknown Non-blood Collection / Unknown 08/31/2024 1:42 PM EDT 08/31/2024 2:17 PM EDT Willam Jovel MD LAB URINE ORDERABLES Final Res ult Performing Organization Address [facility] Co de Phone Number [facility] [address] [place] [address], [place] [phone] * Patten urine culture tube (08/31/2024 1:42 PM EDT) Extra Tube Hold for add-ons. 08/31/2024 4:01 PM EDT [facility] Comment:Auto resulted. Urine Urine specimen obtained by clean catch procedure / Unknown Non-blood Collection / Unknown 08/31/2024 1:42 PM EDT 08/31/2024 2:17 PM EDT Willam Jovel MD LAB URINE ORDERABLES Final Res ult Performing Organization Address [facility] Phone Number [facility] [address] [place] [address], [place] [phone] * CT Head wo Contrast (08/31/2024 10:03 [...] Signed Date: 08/31/2024 10:52 ET Workstation ID: [id number] Transcribed By: Self Edit Transcribed Date: 08/31/2024 10:31 ET Narrative 08/31/2024 10:52 AM EDT PROCEDURE: HEAD CT INDICATION: Dizziness TECHNIQUE: CT of the head without intravenous contrast. Multiplanar reformats. The examination was performed utilizing dose reduction techniques. Total DLP 809 COMPARISON: 12/11/2021. FINDINGS: No acute territorial infarct, mass effect, or intracranial hemorrhage. Mild scattered periventricular and subcortical white matter hypodensities are most likely related to chronic small vessel ischemic change. Small old infarcts in the parietal lobes are unchanged. Ventricles, sulci, and cisterns are normal in size and configuration. No hydrocephalus or volume loss. Scattered mucosal thickening seen throughout the sinuses. Mastoid air cells are clear. No scalp hematoma [...] Signed Date: 08/31/2024 10:52 ET Workstation ID: [id number] Transcribed By: Self Edit Transcribed Date: 08/31/2024 10:31 ET us Arden Potter DO IMG CT PROCEDURES Final Result * Troponin I high sensitivity (08/31/2024 9:40 AM EDT) Only the most recent of2 resultswithin the time period is included. High Sensitivity Troponin I 27 <=79 ng/L LAB CHEMISTRY METHOD 08/31/2024 10:33 AM EDT [facility] Blood Venous blood specimen / Unknown Venipuncture / Unknown 08/31/2024 9:40 AM EDT 08/31/2024 9:57 AM EDT Narrative [facility] - 08/31/2024 10:33 AM EDT High levels of biotin in samples may falsely decrease hsTroponin values. Use caution when interpreting hsTroponin results in patients taking biotin who exhibit renal impairment (eGFR <60) or in patients taking more than 20 mg/day of biotin. Arden Potter DO LAB BLOOD ORDERABLES Final Res ult Performing Organization Address [facility]/ZIP Co de Phone Number [facility] [address] [place] [address], [place] [phone] * APTT (08/31/2024 9:40 AM EDT) aPTT 33.0 24.1 - 39.3 sec LAB COAGULATION METHOD 08/31/2024 10:16 AM EDT [facility] Blood Venous blood specimen / Unknown Venipuncture / Unknown 08/31/2024 9:40 AM EDT 08/31/2024 9:57 AM EDT Arden Potter DO LAB BLOOD ORDERABLES Final Res ult Performing Organization Address [facility]/ZIP Co de Phone Number [facility] [address] [place] [address], [place] [phone] * XR Chest 1 View (08/31/2024 9:16 [...] Signed Date: 08/31/2024 09:25 ET Workstation ID: [id number] Transcribed By: Self Edit Transcribed Date: 08/31/2024 09:25 ET Narrative 08/31/2024 9:25 AM EDT XR CHEST 1 VIEW INDICATION: Dyspnea TECHNIQUE: [...] Signed Date: 08/31/2024 09:25 ET Workstation ID: [id number] Transcribed By: Self Edit Transcribed Date: 08/31/2024 09:25 ET Arden Potter DO IMG XR PROCEDURES Final Result * [id number], RSV, Influenza A and B qualitative RT-PCR (08/31/2024 8:36 AM EDT) Influenza A PCR Not Detected Not Detected LAB MICROBIOLOGY METHOD 08/31/2024 9:52 AM EDT [facility] Influenza B PCR Not Detected Not Detected LAB MICROBIOLOGY METHOD 08/31/2024 9:52 AM EDT [facility] RSV PCR Not Detected Not Detected LAB MICROBIOLOGY METHOD 08/31/2024 9:52 AM EDT [facility] SARS COV-2 Not Detected Not Detected LAB MICROBIOLOGY METHOD 08/31/2024 9:52 AM EDT [facility] Swab Nasopharyngeal structure / Unknown Non-blood Collection / Unknown 08/31/2024 8:36 AM EDT 08/31/2024 9:03 AM EDT Narrative [facility] - 08/31/2024 9:52 AM EDT Disclaimer: Testing was performed using the [employer] GeneXpert Xpress SARS-CoV-2 _Flu_RSV PLUS PCR assay. [...] FDA under an Emergency Use Authorization (EUA). This test is only authorized for the duration [...] for Healthcare providers can be found at https://www.fda.gov/media/085810/download. Fact sheet for Healthcare patients can be found at https://www.fda.gov/media/426603/download. Arden Potter DO LAB MICROBIOLOGY - GENERAL ORD ERABLES Final Result [facility] [address] [place] [address], * Thyroid stimulating hormone with reflex to free t4 and free t3 (08/31/2024 8:36 AM EDT) TSH 2.17 0.40 - 4.00 mcIU/mL LAB CHEMISTRY METHOD 08/31/2024 3:44 PM EDT [facility] Blood Venous blood specimen / Unknown Venipuncture / Unknown 08/31/2024 8:36 AM EDT 08/31/2024 9:04 AM EDT us Willam Jovel MD LAB BLOOD ORDERABLES Final Res ult [facility] [address] [place] [address], [place] [phone] * Lipid panel with reflex to direct LDL (08/31/2024 8:36 AM EDT) [facility] [address] Cholesterol 127 0 - 200 mg/dL LAB CHEMISTRY METHOD 08/31/2024 2:25 PM EDT [facility] Triglycerides 117 0 - 150 mg/dL LAB CHEMISTRY METHOD 08/31/2024 2:25 PM EDT [facility] HDL 61 >=40 mg/dL LAB CHEMISTRY METHOD 08/31/2024 2:25 PM EDT [facility] LDL Calculated 43 0 - 100 mg/dL LAB CHEMISTRY METHOD 08/31/2024 2:25 PM EDT [facility] VLDL Cholesterol Darren 23.4 mg/dL LAB CHEMISTRY METHOD 08/31/2024 2:25 PM EDT [facility] Non HDL Chol. (LDL+VLDL) 66 <145 mg/dL LAB CHEMISTRY METHOD 08/31/2024 2:25 PM EDT [facility] Chol/HDL Ratio 2.1 0.0 - 4.4 LAB CHEMISTRY METHOD 08/31/2024 2:25 PM EDT [facility] Blood Venous blood specimen / Unknown Venipuncture / Unknown 08/31/2024 8:36 AM EDT 08/31/2024 9:04 AM EDT us Willam Jovel MD LAB BLOOD ORDERABLES Final Res ult [facility] [address] [place] [address], [place] [phone] * (ABNORMAL) B-type natriuretic peptide (08/31/2024 8:36 AM EDT) Pathologist [facility] BNP 102(H) <=100 pcg/mL LAB CHEMISTRY METHOD 08/31/2024 9:49 AM EDT [facility] Blood Venous blood specimen / Unknown Venipuncture / Unknown 08/31/2024 8:36 AM EDT 08/31/2024 9:04 AM EDT Arden Potter DO LAB BLOOD ORDERABLES Final Res ult [facility] [address] [place] [address], [place] [phone] * Hemoglobin A1c (08/31/2024 8:36 AM EDT) [facility] [address] Hemoglobin A1C 6.1 <6.5 % LAB CHEMISTRY METHOD 09/01/2024 2:20 PM EDT [facility] Mean Bld Glu Estim. 128 mg/dL LAB CHEMISTRY METHOD 09/01/2024 2:20 PM EDT [facility] Blood Venous blood specimen / Unknown Venipuncture / Unknown 08/31/2024 8:36 AM EDT 08/31/2024 9:04 AM EDT Willam Jovel MD LAB BLOOD ORDERABLES Final Res ult [facility] [address] [place] [address], [place] [phone] * ECG 12 lead (08/31/2024 8:30 AM EDT) Ventricular Rate ECG 79 BPM GEMUSE Atrial Rate 79 BPM GEMUSE P-R Interval 272 ms GEMUSE QRS Duration 124 ms GEMUSE Q-T Interval 438 ms GEMUSE QTc 502 ms GEMUSE P Wave Stark 94 degrees GEMUSE R Stark 62 degrees GEMUSE T Stark 76 degrees GEMUSE ECG Interpretation Sinus rhythm [...] AM EDT 08/31/2024 2:54 PM EDT us Arden Potter DO ECG ORDERABLES Final Result GEMUSE from Last [address] [place] [id number] Member Subscriber Plan / Payer (Ef fective 2022-Present) Name:Andres Weiss Relation to Subscriber:Self Name:Andres Weiss Payer ID:[id number] Group ID:[id number] Type:Not on file Address: [address] [place] [address] [employer] MED[employer] Member Subscriber Plan / Payer (Ef fective 2022-Present) Name:Andres Weiss Relation to Subscriber:Self Name:Andres Weiss Payer ID:[id number] Group ID:[id number] Type:Not on file Address: [address] [place] [address] Advance Directives * Full Code - Default [...] currently active code status orders. Care Teams Chicken Stuffer Relationship Specialty Start Date End Date Barbara Peterson MD [address] [place] [address] , [address] [facility] [place] PCP - General Internal Medicine 08/31/24
== END 2024-11-11 10:17 | disposition home or self-care (01) ==
LOC: HO.ACS 10:02
PROVIDERS: PCP Internal Medicine; Visit Provider Internal Medicine Medical Oncology
DX: Z79.01 Long term (current) use of anticoagulants (principal)

== ENCOUNTER → 2024-11-11 10:02 | Outpatient (BNVA) | payer OTHER, SELFPAY | PROVIDERS: PCP Internal Medicine; Visit Provider Internal Medicine Medical Oncology | DX: Z95.2 Presence of prosthetic heart valve (principal); Z79.01 Long term (current) use of anticoagulants; Z51.81 Encounter for therapeutic drug level monitoring | CPT/HCPCS: 85610; 99211 ==

== ENCOUNTER 2024-11-14 13:25 | Outpatient (AMB) | payer OTHER, SELFPAY ==
--- NOTE | 2024-11-14 13:43 | MHC.OFFVIS ---
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: No Allergies No Known Allergies (No Known Allergies*) Allergy (Verified 11/14/24 14:03) Medication List - Last Reconciled 11/14/24 by Yamilka Bustillo MD acetaminophen 650 mg PO Q6H PRN atenolol 50 mg PO DAILY atorvastatin 40 mg PO BEDTIME [compression stockings knee-high 20 mmHg] darolutamide 600 mg (2 x 300 mg) PO BID 30 days darolutamide (Nubeqa) 600 mg (2 x 300 mg) PO BID furosemide 40 mg PO QAM lactulose 15 mL PO DAILY lisinopril 20 mg PO DAILY 90 days oxycodone-acetaminophen 5-325 mg 1 tab PO Q12H PRN 30 days potassium chloride ER (Klor-Con M) 20 mEq PO QAM warfarin 5 mg See Protocol PO DAILY 90 days Do you need a note to return to daycare/school/sports/work: No HPI HPI sleep apnea: Details: JOSHUA , 69 years old very pleasant gentleman , case of morbid obesity and obstructive sleep apnea, is here for follow-up after 6 months. He is a very regular user of CPAP but missed a few nights during the past 1 month. He say is that he sleeps very good as long as he uses the CPAP. There is no issue or concern with the CPAP mask or CPAP equipment, but he does have some air leak on some nights, Breathing has been stable, There have been no stasis edema, but he has put on a few more lb of weight. [facility] Medical History Prostate cancer Seroma after procedure Peripheral vascular disease Poor circulation Leg edema Morbid obesity Opiate dependence ALLEN (obstructive sleep apnea) Lumbar degenerative disc disease PAF (paroxysmal atrial fibrillation) Essential hypertension History of stroke Paroxysmal atrial flutter Ventricular tachyarrhythmia Hypertrophic cardiomyopathy Surgical History H/O colonoscopy Status post aorto-coronary artery bypass graft Status post mitral valve replacement Status post implantation of mitral valve leaflet clip History of cardiac pacemaker (~03/2014) History of cardiac catheterization Family History Father Diabetes Mother No problems noted. Social History Housing: Apartment Alcohol intake: current Alcohol intake frequency: holidays/special occasions only Alcohol type: hard liquor Patient Tobacco Use Status: Never used Tobacco e-Cigarette/Vaping Use: Never Used Second Hand Smoke Exposure: No service: No Current occupational status: unemployed Cognitive needs: Yes Hearing needs: No Vision needs: Yes Review of Systems Const All systems reviewed & are unremarkable except as noted in HPI and below Denies chills and Denies fever(s) Eyes Reports no additional complaints ENT Reports no additional complaints Card Reports no additional complaints and Denies syncope Resp Denies cough and Denies wheezing GI Denies abdominal pain and Denies heartburn Reports as per HPI and Denies change in libido Musc Reports back pain Skin/Breast Reports system reviewed and no additional complaints, except as documented Neuro Denies syncope Psych Denies change in libido Endo Denies change in libido Aller/Immun Denies wheezing Physical Exam Vital Signs: Last Vital Signs Pulse 77 11/14/24 13:44 BP 129/72 11/14/24 13:44 Pulse Ox 97 11/14/24 13:44 Oxygen Delivery Method Room Air 11/14/24 13:44 BMI result Body Mass Index 43.2 Const Other: Grossly obese General: comfortable, no acute distress, alert and awake Orientation/consciousness: patient oriented x3 HEENT Head: Yes normal to inspection General nose exam: No nasal polyps present and No nasal discharge present Face and sinus: Yes sinuses nontender Mouth: oropharynx normal Throat: No posterior oropharynx normal (Moderately crowded, Mallampati class 3. ) and No uvula laterally displaced (Patient has had uvulopalatoplasty) Eyes General: appearance normal, both eyes and all related structures Neck Neck: Yes normal visual inspection, Yes no lymphadenopathy, Yes trachea midline and Yes no JVD Thyroid: Thyroid normal Chest Chest palpation & inspection: normal inspection of the chest, normal palpation of entire chest wall and no tenderness Resp Effort & Inspection: normal respiratory effort Auscultation: clear to auscultation bilaterally, no crackles and no wheezes Cardio Palpation: normal PMI Rate: regular rate Rhythm: regular rhythm Heart sounds: no gallops and no murmurs Peripheral pulses: Peripheral pulses 2+ throughout GI Palpation (GI): Soft to palpation, nontender, No hepatosplenomegaly present and no masses Auscultation: normal bowel sounds Back/Spine/Pelvis Thoracic/Lumbar Spine: thoracic and lumbar spine normal to inspection and thoraco-lumbar ROM limited Skin General skin exam: no rashes or lesions noted Neuro General: patient oriented x3 and no focal motor deficits Cranial nerves: Yes CN's II-XII intact bilaterally Extrem General: Yes normal to inspection, Yes no clubbing, cyanosis or edema and Yes no calf tenderness Psych Appearance: grossly normal and well kempt Speech and movement: Normal speech and movement present Results Reviewed Results Reviewed: Compliance report for the last 30 nights is reviewed. He has used 25/30 nights, 83% of the time. He missed 5 nights. Only because he forgets to put it on Average usage 5 hours 25 minutes. Pressure used is 10-15 cm. There is some air Leak maximum 50.6 residual AHI 1.8 Assessment & Plan Assessment & Plan (1) Morbid obesity: Comment: The patient is relatively inactive. He does have gross obesity. He does say that he walks about half to 1 hour every day. But weight has gone up by a few lb. He say is that he is working with a dietitian. Code(s): E66.01 - Morbid (severe) obesity due to excess calories Category: Medical Plan: Discuss about the weight and is diet and I encouraged him to continue working with the dietitian. Also encouraged him to walk at least about 2 miles every day. (2) ALLEN (obstructive sleep apnea): Comment: He does have severe obstructive Sleep apnea He is very very compliant and benefits from the use of CPAP. His sleep quality is much better. Code(s): G47.33 - Obstructive sleep apnea (adult) (pediatric) Category: Medical Plan: Commended for good compliance. And advised to keep on using CPAP every night do not miss any night. And use for at least 5 hours every night. Coding Level of Care Code Est Pt Level 3 (99050) Diagnoses Morbid obesity E66.01 ALLEN (obstructive sleep apnea) G47.33
[2024-11-14 13:44] VITALS: BP 129/72; PULSE 77; O2SAT 97; BMI 43.2
--- OUTSIDE RECORDS SUMMARY | 2024-11-14 13:59 | XMS_ITS | Clinical Summary ---
Author Organization [facility] Address [address] [place] [address] Phone Care Team Providers Care Executive Community Planning Name Role Phone Barbara Peterson MD Primary Care Provider [phone] Allergies No known active allergies Medications atenoloL [...] - 09/01/2024 12:57 PM EDT Hospital Encounter [facility] [address] [place] [address] Arden Potter DO Ishtiaq, Rizwan, MD Alam, Aroosa, MD Shortness of breath (Primary Dx); Acute systolic congestive heart failure ([facility] [place], [facility] V28) Discharge Disposition: Home or Self Care from Last 3 Months Medical History Medical History Date Comments Hypertension Prostate cancer ([facility] [place], [facility] V28) A-fib ([facility], [facility] V28) Pacemaker Social History Tobacco Use Types [...] AND DIFFERENTIAL STAT 08/31/2024 8:36 AM EDT [id number], RSV, FLU A AND B QUALITATIVE RT-PCR, [...] K/mcL LAB HEMETOLOGY METHOD 09/01/2024 6:28 AM [facility] RBC 4.20(L) 4.50 - 5.50 M/mcL LAB HEMETOLOGY METHOD 09/01/2024 6:28 AM [facility] Hemoglobin 12.6(L) 13.5 - 17.5 g/dL LAB HEMETOLOGY METHOD 09/01/2024 6:28 AM [facility] Hematocrit 39.8(L) 42.0 - 54.0 % LAB HEMETOLOGY METHOD 09/01/2024 6:28 AM [facility] MCV 94.5 79.0 - 98.0 FL LAB HEMETOLOGY METHOD 09/01/2024 6:28 AM [facility] MCH 29.9 27.0 - 32.0 pcg LAB HEMETOLOGY METHOD 09/01/2024 6:28 AM [facility] MCHC 31.7(L) 32.0 - 37.0 g/dL LAB HEMETOLOGY METHOD 09/01/2024 6:28 AM [facility] RDW 13.5 11.0 - 15.0 % LAB HEMETOLOGY METHOD 09/01/2024 6:28 AM [facility] Platelets 216 130 - 400 K/mcL LAB HEMETOLOGY METHOD 09/01/2024 6:28 AM [facility] MPV 10.0 7.0 - 11.0 FL LAB HEMETOLOGY METHOD 09/01/2024 6:28 AM [facility] NRBC 0.0 <1.0 % LAB HEMETOLOGY METHOD 09/01/2024 6:28 AM [facility] NRBC Absolute 0.00 <0.10 K/mcL LAB HEMETOLOGY METHOD 09/01/2024 6:28 AM [facility] Neutrophils Relative 67.0 % LAB HEMETOLOGY METHOD 09/01/2024 6:28 AM [facility] Lymphocytes Relative 19.2 % LAB HEMETOLOGY METHOD 09/01/2024 6:28 AM [facility] Monocytes Relative 9.3 % LAB HEMETOLOGY METHOD 09/01/2024 6:28 AM [facility] Eosinophils Relative 3.7 % LAB HEMETOLOGY METHOD 09/01/2024 6:28 AM [facility] Basophils Relative 0.4 % LAB HEMETOLOGY METHOD 09/01/2024 6:28 AM [facility] Immature Granulocytes Relative 0.4 % LAB HEMETOLOGY METHOD 09/01/2024 6:28 AM [facility] Neutrophils Absolute 3.59 1.50 - 7.00 K/mcL LAB HEMETOLOGY METHOD 09/01/2024 6:28 AM [facility] Lymphocytes Absolute 1.03 1.00 - 5.00 K/mcL LAB HEMETOLOGY METHOD 09/01/2024 6:28 AM EDT [facility] Monocytes Absolute 0.50 0.20 - 1.00 K/mcL LAB HEMETOLOGY METHOD 09/01/2024 6:28 AM EDT [facility] Eosinophils Absolute 0.20 0.00 - 0.50 K/mcL LAB HEMETOLOGY METHOD 09/01/2024 6:28 AM EDT [facility] Basophils Absolute 0.02 0.00 - 0.20 K/mcL LAB HEMETOLOGY METHOD 09/01/2024 6:28 AM EDT [facility] Immature Granulocytes Absolute 0.02 0.00 - 0.03 K/mcL LAB HEMETOLOGY METHOD 09/01/2024 6:28 AM EDT [facility] Blood Venous blood specimen / Unknown Venipuncture / Unknown 09/01/2024 5:54 AM EDT 09/01/2024 6:06 AM EDT us Willam Jovel MD LAB BLOOD ORDERABLES Final Res ult [facility] [address] [place] [address], [place] [phone] * (ABNORMAL) Prothrombin time with INR (09/01/2024 5:54 AM EDT) Only the most recent of2 resultswithin the time period is included. Protime 33.9(H) 10.6 - 13.9 sec LAB COAGULATION METHOD 09/01/2024 6:28 AM EDT [facility] INR 2.7 LAB COAGULATION METHOD 09/01/2024 6:28 AM EDT [facility] Blood Venous blood specimen / Unknown Venipuncture / Unknown 09/01/2024 5:54 AM EDT 09/01/2024 6:06 AM EDT Willam Jovle MD LAB BLOOD ORDERABLES Final Res ult Performing Organization Address City/[facility]/ZIP Co de Phone Number [facility] [address] [place] [address], [place] [phone] * Magnesium (09/01/2024 5:54 AM EDT) Pathologist [facility] Magnesium 2.3 1.9 - 2.6 mg/dL LAB CHEMISTRY METHOD 09/01/2024 7:02 AM EDT [facility] Blood Venous blood specimen / Unknown Venipuncture / Unknown 09/01/2024 5:54 AM EDT 09/01/2024 6:07 AM EDT Willam Jovel MD LAB BLOOD ORDERABLES Final Res ult Performing Organization Address [facility]/ZIP Co de Phone Number [facility] [address] [place] [address], [place] [phone] * (ABNORMAL) Basic metabolic panel (09/01/2024 5:54 AM EDT) Only the most recent of2 resultswithin the time period is included. Pathologist [facility] Sodium 138 133 - 145 mmol/L LAB CHEMISTRY METHOD 09/01/2024 7:02 AM [facility] Potassium 4.3 3.5 - 5.5 mmol/L LAB CHEMISTRY METHOD 09/01/2024 7:02 AM [facility] Chloride 104 96 - 110 mmol/L LAB CHEMISTRY METHOD 09/01/2024 7:02 AM [facility] CO2 29 21 - 32 mmol/L LAB CHEMISTRY METHOD 09/01/2024 7:02 AM [facility] Anion Gap 5 3 - 11 LAB CHEMISTRY METHOD 09/01/2024 7:02 AM [facility] Glucose 110(H) 70 - 100 mg/dL LAB CHEMISTRY METHOD 09/01/2024 7:02 AM [facility] BUN 15 5 - 25 mg/dL LAB CHEMISTRY METHOD 09/01/2024 7:02 AM T [facility] Creatinine 0.91 0.70 - 1.30 mg/dL LAB CHEMISTRY METHOD 09/01/2024 7:02 AM [facility] eGFR 92 >=60 mL/min/1. 73m2 LAB CHEMISTRY METHOD 09/01/2024 7:02 AM [facility] Comment:Calculation based on the Chronic Kidney Disease Epidemiology Collaboration (CKD-EPI) equation refit without adjustment for race. BUN/Creatinine Ratio 16.5 LAB CHEMISTRY METHOD 09/01/2024 7:02 AM [facility] Calcium 9.2 8.5 - 10.5 mg/dL LAB CHEMISTRY METHOD 09/01/2024 7:02 AM [facility] Blood Venous blood specimen / Unknown Venipuncture / Unknown 09/01/2024 5:54 AM EDT 09/01/2024 6:07 AM EDT us Willam Jovel MD LAB BLOOD ORDERABLES Final Res ult [facility] [address] [place] [address], [place] [phone] * (ABNORMAL) Urinalysis with reflex microscopic and culture (08/31/2024 1:42 PM EDT) Specific Longs Urine 1.011 1.003 - 1.030 LAB URINALYSIS - AUTOMATED METHOD 08/31/2024 2:36 PM EDT [facility] pH, Urine 7.0 5.0 - 8.0 pH LAB URINALYSIS - AUTOMATED METHOD 08/31/2024 2:36 PM T [facility] Leukocytes, Urine Negative Negative LAB URINALYSIS - AUTOMATED METHOD 08/31/2024 2:36 PM EDT [facility] Nitrite, Urine Negative Negative LAB URINALYSIS - AUTOMATED METHOD 08/31/2024 2:36 PM [facility] Protein, Urine Negative <=Trace mg/dL LAB URINALYSIS - AUTOMATED METHOD 08/31/2024 2:36 PM [facility] Glucose, Urine Negative Negative mg/dL LAB URINALYSIS - AUTOMATED METHOD 08/31/2024 2:36 PM [facility] Ketones, Urine Negative Negative mg/dL LAB URINALYSIS - AUTOMATED METHOD 08/31/2024 2:36 PM [facility] Urobilinogen, Urine 0.2 0.2 - 1.0 mg/dL LAB URINALYSIS - AUTOMATED METHOD 08/31/2024 2:36 PM [facility] Bilirubin, Urine Negative Negative LAB URINALYSIS - AUTOMATED METHOD 08/31/2024 2:36 PM [facility] Blood, Urine Trace(A) Negative LAB URINALYSIS - AUTOMATED METHOD 08/31/2024 2:36 PM [facility] RBC, Urine 3.5 0 - 4 /HPF LAB URINALYSIS - AUTOMATED METHOD 08/31/2024 2:36 PM [facility] WBC, Urine 0.3 0 - 4 /HPF LAB URINALYSIS - AUTOMATED METHOD 08/31/2024 2:36 PM [facility] Squamous Epithelial, Urine 10 0 - 60 /LPF LAB URINALYSIS - AUTOMATED METHOD 08/31/2024 2:36 PM [facility] Bacteria, Urine Negative Negative /HPF LAB URINALYSIS - AUTOMATED METHOD 08/31/2024 2:36 PM [facility] Hyaline Casts, Urine 0.0 0 - 3 /LPF LAB URINALYSIS - AUTOMATED METHOD 08/31/2024 2:36 PM [facility] Urine Urine specimen obtained by clean catch procedure / Unknown Non-blood Collection / Unknown 08/31/2024 1:42 PM EDT 08/31/2024 2:17 PM EDT Willam Jovel MD LAB URINE ORDERABLES Final Res ult Performing Organization Address [facility] Co de Phone Number [facility] [address] [place] [address], [place] [phone] * Patten urine culture tube (08/31/2024 1:42 PM EDT) Extra Tube Hold for add-ons. 08/31/2024 4:01 PM EDT [facility] Comment:Auto resulted. Urine Urine specimen obtained by clean catch procedure / Unknown Non-blood Collection / Unknown 08/31/2024 1:42 PM EDT 08/31/2024 2:17 PM EDT Willam Jovel MD LAB URINE ORDERABLES Final Res ult Performing Organization Address [facility] de Phone Number [facility] [address] [place] [address], [place] [phone] * CT Head wo Contrast (08/31/2024 10:03 [...] Signed Date: 08/31/2024 10:52 ET Workstation ID: [id number] Transcribed By: Self Edit Transcribed Date: 08/31/2024 [...] Signed Date: 08/31/2024 10:52 ET Workstation ID: [id number] Transcribed By: Self Edit Transcribed Date: 08/31/2024 10:31 ET us Arden Potter DO IMG CT PROCEDURES Final Result * Troponin I high sensitivity (08/31/2024 9:40 AM EDT) Only the most recent of2 resultswithin the time period is included. High Sensitivity Troponin I 27 <=79 ng/L LAB CHEMISTRY METHOD 08/31/2024 10:33 AM EDT [facility] Blood Venous blood specimen / Unknown Venipuncture / Unknown 08/31/2024 9:40 AM EDT 08/31/2024 9:57 AM EDT Narrative [facility] - 08/31/2024 10:33 AM EDT High levels of biotin in samples may falsely decrease hsTroponin values. Use caution when interpreting hsTroponin results in patients taking biotin who exhibit renal impairment (eGFR <60) or in patients taking more than 20 mg/day of biotin. Arden Potter DO LAB BLOOD ORDERABLES Final Res ult Performing Organization Address [facility]/ZIP Co de Phone Number [facility] [address] [place] [address], [place] [phone] * APTT (08/31/2024 9:40 AM EDT) aPTT 33.0 24.1 - 39.3 sec LAB COAGULATION METHOD 08/31/2024 10:16 AM EDT [facility] Blood Venous blood specimen / Unknown Venipuncture / Unknown 08/31/2024 9:40 AM EDT 08/31/2024 9:57 AM EDT Arden Potter DO LAB BLOOD ORDERABLES Final Res ult Performing Organization Address [facility]/ZIP Co de Phone Number [facility] [address] [place] [address], [place] [phone] * XR Chest 1 View (08/31/2024 9:16 [...] Signed Date: 08/31/2024 09:25 ET Workstation ID: [id number] Transcribed By: Self Edit Transcribed Date: 08/31/2024 [...] Signed Date: 08/31/2024 09:25 ET Workstation ID: [id number] Transcribed By: Self Edit Transcribed Date: 08/31/2024 09:25 ET Arden Potter DO IMG XR PROCEDURES Final Result * [id number], RSV, Influenza A and B qualitative RT-PCR (08/31/2024 8:36 AM EDT) Influenza A PCR Not Detected Not Detected LAB MICROBIOLOGY METHOD 08/31/2024 9:52 AM EDT [facility] Influenza B PCR Not Detected Not Detected LAB MICROBIOLOGY METHOD 08/31/2024 9:52 AM EDT [facility] RSV PCR Not Detected Not Detected LAB MICROBIOLOGY METHOD 08/31/2024 9:52 AM EDT [facility] SARS COV-2 Not Detected Not Detected LAB MICROBIOLOGY METHOD 08/31/2024 9:52 AM EDT [facility] Swab Nasopharyngeal structure / Unknown Non-blood Collection / Unknown 08/31/2024 8:36 AM EDT 08/31/2024 9:03 AM EDT Narrative [facility] - 08/31/2024 9:52 AM EDT Disclaimer: Testing was performed using the [employer] GeneXpert Xpress SARS-CoV-2 _Flu_RSV PLUS PCR assay. [...] for Healthcare providers can be found at https://www.fda.gov/media/663595/download. Fact sheet for Healthcare patients can be found at https://www.fda.gov/media/825465/download. Arden Potter DO LAB MICROBIOLOGY - GENERAL ORD ERABLES Final Result [facility] [address] [place] [address], * Thyroid stimulating hormone with reflex to free t4 and free t3 (08/31/2024 8:36 AM EDT) TSH 2.17 0.40 - 4.00 mcIU/mL LAB CHEMISTRY METHOD 08/31/2024 3:44 PM EDT [facility] Blood Venous blood specimen / Unknown Venipuncture / Unknown 08/31/2024 8:36 AM EDT 08/31/2024 9:04 AM EDT us Willam Jovel MD LAB BLOOD ORDERABLES Final Res ult [facility] [address] [place] [address], [place] [phone] * Lipid panel with reflex to direct LDL (08/31/2024 8:36 AM EDT) [facility] Cholesterol 127 0 - 200 mg/dL LAB CHEMISTRY METHOD 08/31/2024 2:25 PM EDT [facility] Triglycerides 117 0 - 150 mg/dL LAB CHEMISTRY METHOD 08/31/2024 2:25 PM EDT [facility] HDL 61 >=40 mg/dL LAB CHEMISTRY METHOD 08/31/2024 2:25 PM EDT [facility] LDL Calculated 43 0 - 100 mg/dL LAB CHEMISTRY METHOD 08/31/2024 2:25 PM EDT [facility] VLDL Cholesterol Darren 23.4 mg/dL LAB CHEMISTRY METHOD 08/31/2024 2:25 PM EDT [facility] Non HDL Chol. (LDL+VLDL) 66 <145 mg/dL LAB CHEMISTRY METHOD 08/31/2024 2:25 PM EDT [facility] Chol/HDL Ratio 2.1 0.0 - 4.4 LAB CHEMISTRY METHOD 08/31/2024 2:25 PM EDT [facility] Blood Venous blood specimen / Unknown Venipuncture / Unknown 08/31/2024 8:36 AM EDT 08/31/2024 9:04 AM EDT us Willam Jovel MD LAB BLOOD ORDERABLES Final Res ult [facility] [address] [place] [address], [place] [phone] * (ABNORMAL) B-type natriuretic peptide (08/31/2024 8:36 AM EDT) Pathologist [facility] BNP 102(H) <=100 pcg/mL LAB CHEMISTRY METHOD 08/31/2024 9:49 AM EDT [facility] Blood Venous blood specimen / Unknown Venipuncture / Unknown 08/31/2024 8:36 AM EDT 08/31/2024 9:04 AM EDT Arden Potter DO LAB BLOOD ORDERABLES Final Res ult [facility] [address] [place] [address], [place] [phone] * Hemoglobin A1c (08/31/2024 8:36 AM EDT) [facility] Hemoglobin A1C 6.1 <6.5 % LAB CHEMISTRY METHOD 09/01/2024 2:20 PM EDT [facility] Mean Bld Glu Estim. 128 mg/dL LAB CHEMISTRY METHOD 09/01/2024 2:20 PM EDT [facility] Blood Venous blood specimen / Unknown Venipuncture / Unknown 08/31/2024 8:36 AM EDT 08/31/2024 9:04 AM EDT Willam Jovel MD LAB BLOOD ORDERABLES Final Res ult [facility] [address] [place] [address], [place] [phone] * ECG 12 lead (08/31/2024 8:30 AM EDT) Ventricular Rate ECG 79 BPM GEMUSE Atrial Rate 79 BPM GEMUSE P-R Interval 272 ms GEMUSE QRS Duration 124 ms GEMUSE Q-T Interval 438 ms GEMUSE QTc 502 ms GEMUSE P Wave [place] 94 degrees GEMUSE R [place] 62 degrees GEMUSE T [place] 76 degrees GEMUSE ECG Interpretation Sinus rhythm [...] Result GEMUSE from Last [address] [address] [address] Member Subscriber Plan / Payer (Ef fective 2022-Present) Name:Andres Weiss Relation to Subscriber:Self Name:Andres Weiss Payer ID:[id number] Group ID:[id number] Type:Not on file Address: [address] [place] [address] [employer] Member Subscriber Plan / Payer (Ef fective 2022-Present) Name:Andres Weiss Relation to Subscriber:Self Name:Andres Weiss Payer ID:[id number] Group ID:[id number] Type:Not on file Address: [address] [place] [address] Advance Directives * Full Code - Default [...] currently active code status orders. Care Teams Executive Community Planning Relationship Specialty Start Date End Date Barbara Peterson MD [address] [place] [address] , [address] [facility] [place] PCP - General Internal Medicine 08/31/24
== END 2024-11-14 14:03 | disposition home or self-care (01) ==
LOC: HO.HPS 13:26
PROVIDERS: PCP Internal Medicine; Visit Provider Internal Medicine
DX: E66.01 Morbid (severe) obesity due to excess calories (principal); G47.33 Obstructive sleep apnea (adult) (pediatric)
CPT/HCPCS: 99213

== ENCOUNTER → 2024-11-14 13:25 | Outpatient (BNVA) | payer OTHER, SELFPAY | PROVIDERS: PCP Internal Medicine; Visit Provider Internal Medicine | DX: G47.33 Obstructive sleep apnea (adult) (pediatric) (principal); E66.01 Morbid (severe) obesity due to excess calories; Z68.41 Body mass index [BMI] 40.0-44.9, adult | CPT/HCPCS: 99212 ==

== ENCOUNTER 2024-12-09 10:14 | Outpatient (AMB) | payer OTHER, SELFPAY ==
[2024-12-09 10:19] LABS: Prothrombin Time Whole Bld POC 44.5 sec (11.1-13.5); ~PT, ~INR - Anti Coag Clinic 3.7 (0.9-1.1)
--- NOTE | 2024-12-09 10:25 | MHC.OFFVISCO ---
Intake Intake Visit Reasons: Anticoagulation Allergies No Known Allergies (No Known Allergies*) Allergy (Verified 12/09/24 10:16) Medication List - Last Reconciled 12/09/24 by Brissa Daniels RN acetaminophen 650 mg PO Q6H PRN atenolol 50 mg PO DAILY atorvastatin 40 mg PO BEDTIME [compression stockings knee-high 20 mmHg] darolutamide 600 mg (2 x 300 mg) PO BID 30 days darolutamide (Nubeqa) 600 mg (2 x 300 mg) PO BID furosemide 40 mg PO QAM lactulose 15 mL PO DAILY lisinopril 20 mg PO DAILY 90 days oxycodone-acetaminophen 5-325 mg 1 tab PO Q12H PRN 30 days potassium chloride ER (Klor-Con M) 20 mEq PO QAM warfarin 5 mg See Protocol PO DAILY 90 days Nursing Note INR: 3.7 out of therapeutic range of 2.5-3.0 Medications and supplements reviewed Patient status: feels well Medications or supplements: no changes Diet: usual diet for pt Denies any signs and symptoms of bleeding or clotting or unusual bruising Bleeding, bruising, clotting discussed Nutritional guidance given: to have a serving of greens today Dose: decreasd today's dose to 2.5mg (5mg) and the same the next day (5mg) then resume usual dose of 5mg daily F/U INR Date: 2 weeks?? Patient verbalizing understanding of instructions given. Anti-Coag Initial Assessment Social Hx Patient Tobacco Use Status: Never used Tobacco alcohol intake: current Alcohol intake frequency: holidays/special occasions only Cardiovascular Hx: HTN, Arrhythmias and Cardiomyopathy Musculoskeletal Hx: Other Blood Disorder Hx: Hyperlipidemia Hx: Prostate Neurological Hx: Stroke/TIA Cancer HX: Yes (prostate) Psych. 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
--- OUTSIDE RECORDS SUMMARY | 2024-12-09 10:51 | XMS_ITS | Encounter Summary ---
Author Organization [facility] Address [address] [address] [place] [address] Care Team Providers Care Mri Specialist Name Role Phone Barbara Valdivia MD Primary Care Provider Young Ramirez MD Unavailable [phone] Reason for Visit * Reason Comments Med Refill Encounter Details Date Type Department Care Team (Late st Contact Info) Description 01/21/2022 Refill [facility] Medical Surgical Unit [address] [place] [id number] Tunde Urias, [place] [address] [facility] [address] [place] [address] Severe mitral regurgitation Social History Tobacco Use Types Packs/Day Years Used Date Smoking Tobacco: Never Smokeless Tobacco: Never Alcohol Use Standard Drinks/Week Comments Not Currently 0 (1 standard drink = 0.6 oz pur e alcohol) Sex and Gender Information Value Date Recorded Sex Assigned at Not on file Legal Sex Male 12:07 AM EST Gender Identity Male 12/14/2021 8:39 PM EDT Sexual Orientation Not on file documented as of this encounter Functional Status * Are you deaf or do you have serious difficulty hearing? Answer Date of Assessment Author No 01/01/2022 12:42 PM EDT * Are you blind or do you have serious difficulty seeing, even when wearing glasses? Answer Date of Assessment Author No 01/01/2022 12:42 PM EDT * Do you have serious difficulty walking or climbing stairs? Answer Date of Assessment Author No 12/14/2021 8:47 PM EDT * Do you have serious difficulty dressing or bathing? Answer Date of Assessment Author No 12/14/2021 8:47 PM EDT * Because of a physical, mental, or emotional condition, do you have serious difficulty doing errandsalone such as visiting the doctor? Answer Date of Assessment Author No 12/14/2021 8:47 PM EDT documented as of this encounter Mental Status * Because of a physical, mental, or emotional condition, do you have serious difficulty concentrating, remembering, or making decisions? (5 years old or older) Answer Entry Date Author No 12/14/2021 8:47 PM EDT documented in this encounter Plan of Treatment Not on file documented as of this encounter Visit Diagnoses Diagnosis Severe mitral regurgitation documented in this encounter Care Teams Mri Specialist Relationship Specialty Start Date End Date Barbara Valdivia MD [address] [place] [address] PCP - General 06/04/21 Young Ramirez MD [address] [place] [address] Millinery Copyist Cardiology 12/21/21 documented as of this encounter
--- OUTSIDE RECORDS SUMMARY | 2024-12-09 10:51 | XMS_ITS | Clinical Summary ---
Author Organization [facility] Address [address] [place] [address] Phone Care Team Providers Care Chief Lock Operator Name Role Phone Barbara Peterson MD Primary Care Provider [phone] Allergies No known active allergies Medications atenoloL [...] benign 09/01/2024 SOB (shortness of breath) 08/31/2024 Medical History Medical History Date Comments Hypertension Prostate cancer (CMS/HCC V24, CMS/HCC V28) A-fib (CMS/HCC V24, CMS/HCC V28) Pacemaker Social History Tobacco Use Types [...] series) 2016 Colorectal Cancer Screening: Colonoscopy 03/29/2022 Medicare Annual Wellness Visit 03/29/2022 Social Influencers of Health Screening 03/29/2022 Depression Screening 05/01/2024 COVID-19 Vaccine (7 - Pfizer risk 2023- [...] Procedure Name Priority Date/Time Associated Diagnosis Comments BASIC METABOLIC PANEL Routine 09/01/2024 5:54 AM EDT LIPID PANEL WITH REFLEX TO DIRECT LDL Add-On 08/31/2024 8:36 AM EDT from Last 3 Months or Most Recently Relevant to Health Maintenance Results * (ABNORMAL) Basic metabolic panel (09/01/2024 5:54 AM EDT) Sodium 138 133 - 145 mmol/L LAB CHEMISTRY METHOD 09/01/2024 7:02 AM [facility] Potassium 4.3 3.5 - 5.5 mmol/L LAB CHEMISTRY METHOD 09/01/2024 7:02 AM [facility] Chloride 104 96 - 110 mmol/L LAB CHEMISTRY METHOD 09/01/2024 7:02 AM [facility] CO2 29 21 - 32 mmol/L LAB CHEMISTRY METHOD 09/01/2024 7:02 AM [facility] Anion Gap 5 3 - 11 LAB CHEMISTRY METHOD 09/01/2024 7:02 AM [facility] Glucose 110(H) 70 - 100 mg/dL LAB CHEMISTRY METHOD 09/01/2024 7:[address] [facility] BUN 15 5 - 25 mg/dL LAB CHEMISTRY METHOD 09/01/2024 7:02 AM [facility] Creatinine 0.91 0.70 - 1.30 mg/dL LAB CHEMISTRY METHOD 09/01/2024 7:[address] [facility] eGFR 92 >=60 mL/min/1. 73m2 LAB CHEMISTRY METHOD 09/01/2024 7:02 AM [facility] Comment:Calculation based on the Chronic Kidney Disease Epidemiology Collaboration (CKD-EPI) equation refit without adjustment for race. BUN/Creatinine Ratio 16.5 LAB CHEMISTRY METHOD 09/01/2024 7:02 AM [facility] Calcium 9.2 8.5 - 10.5 mg/dL LAB CHEMISTRY METHOD 09/01/2024 7:[address] [facility] Blood Venous blood specimen / Unknown Venipuncture / Unknown 09/01/2024 5:54 AM EDT 09/01/2024 6:07 AM EDT us Willam Jovel MD LAB BLOOD ORDERABLES Final Res ult [facility] [address] [place] [address], * Lipid panel with reflex to direct LDL (08/31/2024 8:36 AM EDT) Cholesterol 127 0 - 200 mg/dL LAB CHEMISTRY METHOD 08/31/2024 2:[address] [facility] Triglycerides 117 0 - 150 mg/dL LAB CHEMISTRY METHOD 08/31/2024 2:[address] [facility] HDL 61 >=40 mg/dL LAB CHEMISTRY METHOD 08/31/2024 2:[address] [facility] LDL Calculated 43 0 - 100 mg/dL LAB CHEMISTRY METHOD 08/31/2024 2:[address] [facility] VLDL Cholesterol Darren 23.4 mg/dL LAB CHEMISTRY METHOD 08/31/2024 2:[address] [facility] Non HDL Chol. (LDL+VLDL) 66 <145 mg/dL LAB CHEMISTRY METHOD 08/31/2024 2:[address] [facility] Chol/HDL Ratio 2.1 0.0 - 4.4 LAB CHEMISTRY METHOD 08/31/2024 2:[address] [facility] Blood Venous blood specimen / Unknown Venipuncture / Unknown 08/31/2024 8:36 AM EDT 08/31/2024 9:04 AM EDT us Willam Jovel MD LAB BLOOD ORDERABLES Final Res ult [facility] [address] [place] [address], from Last 3 Months or Most Recently Relevant to Health Maintenance Insurance [facility] Member Subscriber Plan / Payer (Ef fective 2022-Present) Name:Andres Weiss Relation to Subscriber:Self Name:Andres Weiss Payer ID:[id number] Group ID:[id number] Type:Not on file Address: [address] [employer] [place] [id number] [facility] MEDICARE Member Subscriber Plan / Payer (Ef fective 2022-Present) Name:Andres Weiss Relation to Subscriber:Self Name:Isela, Chepe Payer ID:[id number] Group ID:[id number] Type:Not on file Address: [address] [place] [phone] Advance Directives * Full Code - Default [...] currently active code status orders. Care Teams Chief Lock Operator Relationship Specialty Start Date End Date Barbara Peterson MD [address] [facility] , [address] [place] [address] Physician Associ D/B/A: [facility] JASEN Perez PCP - General Internal Medicine 08/31/24
== END 2024-12-09 10:29 | disposition home or self-care (01) ==
LOC: HO.ACS 10:14
PROVIDERS: PCP Internal Medicine; Visit Provider Internal Medicine Medical Oncology
DX: Z79.01 Long term (current) use of anticoagulants (principal)

== ENCOUNTER → 2024-12-09 10:14 | Outpatient (BNVA) | payer OTHER, SELFPAY | PROVIDERS: PCP Internal Medicine; Visit Provider Internal Medicine Medical Oncology | DX: Z79.01 Long term (current) use of anticoagulants (principal) | CPT/HCPCS: 85610; 99211 ==

== ENCOUNTER 2024-12-11 06:43 | Outpatient (REF) | payer OTHER, SELFPAY ==
[2024-12-11 08:30] LABS: Prostate Specific Antigen 8.82 ng/mL (<0.05-4.0)
== END 2024-12-11 06:44 | disposition home or self-care (01) ==
LOC: HO.LAB 06:43
PROVIDERS: PCP Internal Medicine; Visit Provider Urology
DX: C61 Malignant neoplasm of prostate (principal); C77.2 Secondary and unspecified malignant neoplasm of intra-abdominal lymph nodes; Z12.5 Encounter for screening for malignant neoplasm of prostate
CPT/HCPCS: 36415; 84153; 84403

== ENCOUNTER 2024-12-20 10:09 | Outpatient (AMB) | payer OTHER, SELFPAY ==
--- OUTSIDE RECORDS SUMMARY | 2024-12-20 10:12 | XMS_ITS | Encounter Summary ---
Author Organization [facility] Address [address] [facility] [address] [place] [address] Care Team Providers Care Trans Router Name Role Phone Barbara Valdivia MD Primary Care Provider [phone] Young Ramirez MD Unavailable [phone] Reason for Visit * Reason Comments Med Refill Encounter Details Date Type Department Care Team (Late st Contact Info) Description 01/21/2022 Refill [facility] Medical Surgical Unit [address] [place] [phone] Tunde Urias, [place] [address] [facility] [address] [place] [address] Severe mitral regurgitation Social History Tobacco Use [...] regurgitation documented in this encounter Care Teams Trans Router Relationship Specialty Start Date End Date Barbara Valdivia MD [address] [place] [address] PCP - General 06/04/21 Young Ramirez MD [address] [place] [address] Protector Plate Attacher Cardiology 12/21/21 documented as of this encounter
--- OUTSIDE RECORDS SUMMARY | 2024-12-20 10:12 | XMS_ITS | Clinical Summary ---
Author Organization [facility] Address [address] [place] [address] Phone Care Team Providers Care Refueling Ramp Attendant Name Role Phone Barbara Peterson MD Primary Care Provider [phone] Allergies No known active allergies Medications atenoloL [...] mmol/L LAB CHEMISTRY METHOD 09/01/2024 7:02 AM [facility] Potassium 4.3 3.5 - 5.5 mmol/L LAB CHEMISTRY METHOD 09/01/2024 7:02 AM [facility] Chloride 104 96 - 110 mmol/L LAB CHEMISTRY METHOD 09/01/2024 7:02 AM [facility] CO2 29 21 - 32 mmol/L LAB CHEMISTRY METHOD 09/01/2024 7:02 AM [facility] Anion Gap 5 3 - 11 LAB CHEMISTRY METHOD 09/01/2024 7:02 AM [facility] Glucose 110(H) 70 - 100 mg/dL LAB CHEMISTRY METHOD 09/01/2024 7:02 AM EDT [facility] BUN 15 5 - 25 mg/dL LAB CHEMISTRY METHOD 09/01/2024 7:02 AM [facility] Creatinine 0.91 0.70 - 1.30 mg/dL LAB CHEMISTRY METHOD 09/01/2024 7:02 AM EDT [facility] eGFR 92 >=60 mL/min/1. 73m2 LAB CHEMISTRY METHOD 09/01/2024 7:02 AM [facility] Comment:Calculation based on the Chronic Kidney Disease Epidemiology Collaboration (CKD-EPI) equation refit without adjustment for race. BUN/Creatinine Ratio 16.5 LAB CHEMISTRY METHOD 09/01/2024 7:02 AM [facility] Calcium 9.2 8.5 - 10.5 mg/dL LAB CHEMISTRY METHOD 09/01/2024 7:02 AM T [facility] Blood Venous blood specimen / Unknown Venipuncture / Unknown 09/01/2024 5:54 AM EDT 09/01/2024 6:07 AM EDT us Willam Jovel MD LAB BLOOD ORDERABLES Final Res ult [facility] [address] [place] [address], * Lipid panel with reflex to direct LDL (08/31/2024 8:36 AM EDT) Cholesterol 127 0 - 200 mg/dL LAB CHEMISTRY METHOD 08/31/2024 2:25 PM EDT [facility] Triglycerides 117 0 - 150 mg/dL LAB CHEMISTRY METHOD 08/31/2024 2:25 PM T [facility] HDL 61 >=40 mg/dL LAB CHEMISTRY METHOD 08/31/2024 2:25 PM EDT [facility] LDL Calculated 43 0 - 100 mg/dL LAB CHEMISTRY METHOD 08/31/2024 2:25 PM EDT [facility] VLDL Cholesterol Darren 23.4 mg/dL LAB CHEMISTRY METHOD 08/31/2024 2:25 PM EDT [facility] Non HDL Chol. (LDL+VLDL) 66 <145 mg/dL LAB CHEMISTRY METHOD 08/31/2024 2:25 PM EDT [facility] Chol/HDL Ratio 2.1 0.0 - 4.4 LAB CHEMISTRY METHOD 08/31/2024 2:25 PM EDT [facility] Blood Venous blood specimen / Unknown Venipuncture / Unknown 08/31/2024 8:36 AM EDT 08/31/2024 9:04 AM EDT us Willam Jovel MD LAB BLOOD ORDERABLES Final Res ult [facility] [address] [place] [address], from Last 3 Months or Most Recently Relevant to Health Maintenance Insurance [facility] Member Subscriber Plan / Payer (Ef fective 2022-Present) Name:Andres Weiss Relation to Subscriber:Self Name:Andres Weiss Payer ID:[id number] Group ID:[id number] Type:Not on file Address: [address] [facility] [place] [phone] [facility] MEDICARE Member Subscriber Plan / Payer (Ef fective 2022-Present) Name:Andres Weiss Relation to Subscriber:Self Name:Isela, Chepe Payer ID:[id number] Group ID:[id number] Type:Not on file Address: [address] [place] [phone] Advance Directives * Full Code - Default [...] currently active code status orders. Care Teams Refueling Ramp Attendant Relationship Specialty Start Date End Date Barbara Peterson MD [address] [facility] , [address] [place] [address] Physician Associ D/B/A: [facility] JASEN Perez PCP - General Internal Medicine 08/31/24
[2024-12-20 10:27] LABS: Prothrombin Time Whole Bld POC 29.3 sec (11.1-13.5); ~PT, ~INR - Anti Coag Clinic 2.4 (0.9-1.1)
--- NOTE | 2024-12-20 10:27 | MHC.OFFVISCO ---
Intake Intake Visit Reasons: Anticoagulation Allergies No Known Allergies (No Known Allergies*) Allergy (Verified 12/20/24 10:23) Medication List - Last Reconciled 12/20/24 by Lanie Hendrickson RN acetaminophen 650 mg PO Q6H PRN atenolol 50 mg PO DAILY atorvastatin 40 mg PO BEDTIME [compression stockings knee-high 20 mmHg] darolutamide 600 mg (2 x 300 mg) PO BID 30 days darolutamide (Nubeqa) 300 mg PO BID furosemide 40 mg PO QAM lactulose 15 mL PO DAILY lisinopril 20 mg PO DAILY 90 days oxycodone-acetaminophen 5-325 mg 1 tab PO Q12H PRN 30 days potassium chloride ER (Klor-Con M) 20 mEq PO QAM warfarin 5 mg See Protocol PO DAILY 90 days Nursing Note INR 2.4-?? out of therapeutic range- 2.5-3 Medications and supplements reviewed Patient status: no c.o Medications or supplements: no changes Diet: same Denies any signs and symptoms of bleeding or clotting or unusual bruising Bleeding, bruising, clotting discussed Nutritional guidance given: no greens for 2-3 days, eat reds to raise Dose: pt req to keep reg dosing 5mg x 7 pt req to raise inr by dietary management rather than dose increase F/U INR Date : 2 weeks? Patient verbalizing understanding of instructions given. Anti-Coag Initial Assessment Social Hx Patient Tobacco Use Status: Never used Tobacco alcohol intake: current Alcohol intake frequency: holidays/special occasions only Cardiovascular Hx: HTN, Arrhythmias and Cardiomyopathy Musculoskeletal Hx: Other Blood Disorder Hx: Hyperlipidemia Hx: Prostate Neurological Hx: Stroke/TIA Cancer HX: Yes (prostate) Psych. Illness/Depression: No Coding Level of Care Code Est Patient Level 1 Diagnoses Current use of anticoagulant therapy Z79.01 Assessment & Plan Assessment & Plan (1) Current use of anticoagulant therapy: Code(s): Z79.01 - termite control servicer (current) use of anticoagulants Category: Medical
== END 2024-12-20 10:35 | disposition home or self-care (01) ==
LOC: HO.ACS 10:09
PROVIDERS: PCP Internal Medicine; Visit Provider Internal Medicine Medical Oncology
DX: Z79.01 Long term (current) use of anticoagulants (principal)

== ENCOUNTER → 2024-12-20 10:09 | Outpatient (BNVA) | payer OTHER, SELFPAY | PROVIDERS: PCP Internal Medicine; Visit Provider Internal Medicine Medical Oncology | DX: C61 Malignant neoplasm of prostate (principal); C77.2 Secondary and unspecified malignant neoplasm of intra-abdominal lymph nodes; N52.35 Erectile dysfunction following radiation therapy; Z95.2 Presence of prosthetic heart valve; Z79.01 Long term (current) use of anticoagulants; Z51.81 Encounter for therapeutic drug level monitoring | CPT/HCPCS: 85610; 99211; 99212 ==

== ENCOUNTER 2024-12-20 13:10 | Outpatient (AMB) | payer OTHER, SELFPAY ==
--- NOTE | 2024-12-20 13:21 | MHC.OFFVIS ---
Intake Visit Reasons: 3M PSA/TESTO Intake Note: Patient is present for 3 month follow up Labs done 12/11/24 PSA 8.82 Total testosterone :8 Urology Medication:NONE Antibiotic Allergy:NONE Blood Thinner:WARFARIN Mold Chipper Required: No Accompanied by: Self / Same As Patient Allergies No Known Allergies (No Known Allergies*) Allergy (Verified 12/20/24 13:23) HPI Comments Details: Anders is a very pleasant male. He is a patient of Dr. Peterson. He is seen for the following urologic conditions - prostate cancer - laura recurrence with bony metastatic disease - erectile dysfunction 12/23 PSA 8.8 T 8 darolutamide. Bone DEXA normal. Repeat PET-CT next visit. Continue current medications. Three-month follow-up 09/22 [facility] today, on darolutamide. No lab work done. Lab work ordered. Has had some fatigue. 06/25 PSA 9 T 9 04/23 PSA 7.4 T 11 Bone scan result pending - left rib maintains activity Add antiandrogen 3m f/u labs 01/22 PSA 7.1 T 177 Restart [facility] 09/21 PSA 3.8 PET-CT - complete resolution of PSMA avid pelvic lymphadenopathy, new left rib activity PSMA avid right internal iliac and presacral lymphadenopathy present at several sites on the 07/27/2021 prior study are not present on the current study 11/20 - PSA <0.1, T1 23 Restart tadalafil 10 mg daily 01/20 mitral valve prolapse with replacement at [facility] - dislodged mitral clip into right ostia Prostate cancer: Bethel 4 + 4, group 4, XRT with hormones 2016 - recurrence 2021 pelvic laura with focal XRT and hormones 09/19 PET-CT scan shows positive laura disease along pelvic and retroperitoneal wall Radiation boost therapy with Dr. Walters at [facility] and 6m hormones Prostate cancer was diagnosed 03/2016 Dr Russo. Diagnosis was reached by needle biopsy, for elevated PSA, PSA at diagnosis 34. The Bethel grade is 9/12 cores , 4+4 = 8 and , 4+3 = 7 > 40% in all cores. TNM Classification of Malignant Tumours (TNM) T2b. The D'Ankit (NCCN) risk category is High Risk (PSA > 20, Gl 8+, T3) - MSK nomagram pre treatment - 3% OCD, 95% FIDELINA, 70% LNI. Initial therapy included Primary treatment - bicalutamide, hormones 05/05/16 - GnRH , External beam radiation with short term hormonal ablation complete 10/15 - [facility] Recent labs included a PSA (prostate-specific antigen) 05/17 on bicalutamide only - 4.6, T 272 07/15 a PSA (prostate-specific antigen) 0.18, T 12 02/14 , a PSA (prostate-specific antigen) 0.22, , T 12 07/16 PSA 0.2, 10/16 PSA 0.15, 02/15 PSA 0.15 T 193 07/17 PSA 0.5 T 245, 01/17 PSA 1.2 T 260 05/20 0.5 T 240, 10/18 1.7 - 03/20 1.9 - 06/21 1.4, 12/19 2.4, 03/21 2.5, 07/20 4.3, 09/19 3.5, 05/23 <0.1 Recent imaging included 04/15 , a CT (computed tomography) scan - pelvic node 04/15 , a bone scan - negative 07/15 , a DEXA scan - normal. - 07/[address] with laura disease along pelvic basin to retroperitoneal wall PFSH Medical History Prostate cancer Seroma after procedure Peripheral vascular disease Poor circulation Leg edema Morbid obesity Opiate dependence AXEL (obstructive sleep apnea) Lumbar degenerative disc disease PAF (paroxysmal atrial fibrillation) Essential hypertension History of stroke Paroxysmal atrial flutter Ventricular tachyarrhythmia Hypertrophic cardiomyopathy Surgical History H/O colonoscopy Status post aorto-coronary artery bypass graft Status post mitral valve replacement Status post implantation of mitral valve leaflet clip History of cardiac pacemaker (~03/2014) History of cardiac catheterization Family History Father Diabetes Mother No problems noted. Social History Housing: Apartment Alcohol intake: current Alcohol intake frequency: holidays/special occasions only Alcohol type: hard liquor Patient Tobacco Use Status: Never used Tobacco e-Cigarette/Vaping Use: Never Used Second Hand Smoke Exposure: No service: No Current occupational status: unemployed Cognitive needs: Yes Hearing needs: No Vision needs: Yes Review of Systems Const Denies chills and Denies fever(s) Card Reports no additional complaints and Denies syncope Resp Denies cough GI Denies abdominal pain and Denies heartburn Reports as per HPI and Denies change in libido Neuro Denies syncope Psych Denies change in libido Endo Denies change in libido Physical Exam Const General: cooperative, healthy appearing, comfortable and no acute distress Orientation/consciousness: patient oriented x3 HEENT Face and sinus: Yes normal facial exam Mouth: moist mucous membranes Neck Neck: Yes normal visual inspection, Yes full ROM and Yes trachea midline Chest Chest palpation & inspection: normal inspection of the chest Resp Effort & Inspection: normal respiratory effort, able to speak in complete sentences and no respiratory distress GI Inspection: Yes normal to inspection Back/Spine/Pelvis Cervical Spine: normal cervical lordosis Thoracic/Lumbar Spine: thoracic and lumbar spine normal to inspection Skin General skin exam: no rashes or lesions noted Neuro General: patient oriented x3, gait normal, tone normal and moves all extremities Extrem General: Yes normal to inspection and Yes capillary refill normal Assessment & Plan Assessment & Plan (1) Prostate cancer metastatic to intraabdominal lymph node: Code(s): C61 - Malignant neoplasm of prostate; C77.2 - Secondary and unspecified malignant neoplasm of intra-abdominal lymph nodes Category: Medical (2) Erectile dysfunction due to and not concurrent with radiation therapy: Code(s): N52.35 - Erectile dysfunction following radiation therapy Category: Medical Plan Follow-up imaging and lab work Orders: Orders PET CT fusion skull to thigh 3 Months C61 - Malignant neoplasm of prostate, C77.2 - Secondary and unspecified malignant neoplasm of intra-abdominal lymph nodes Testosterone, Total 3 Months C61 - Malignant neoplasm of prostate, C77.2 - Secondary and unspecified malignant neoplasm of intra-abdominal lymph nodes Prostate Specific Antigen 3 Months C61 - Malignant neoplasm of prostate, C77.2 - Secondary and unspecified malignant neoplasm of intra-abdominal lymph nodes Patient Instructions: This note is constructed using voice recognition software. While every effort has been made to ensure accuracy voip engineer errors may have been included. Imaging studies, laboratory and physical exam results were discussed and reviewed in detail. No major barriers to patient understanding were identified. An opportunity to ask questions regarding the treatment plan was provided. All questions were answered. The patient expressed understanding and agreement with the above treatment plan. The patient is aware they should contact our office by phone for worsening of their current condition or the appearance of new urologic symptoms. Compliance is encouraged with any medications and followup testing that is ordered. It is a privilege to participate in the urologic care of your patient. If you have any questions or concerns regarding treatment for the above conditions, or other urologic issues, please do not hesitate to contact me. The office telephone contact is [phone]. Sincerely, Dr Jian Russo MD, [facility] - Urology Compassionate Specialist Care for the Genitourinary System Coding Level of Care Code Est Pt Level 3 (36315) Complex EM visit Add On G2211 Diagnoses Prostate cancer metastatic to intraabdominal lymph node C61; C77.2 Erectile dysfunction due to and not concurrent with radiation therapy N52.35
== END 2024-12-20 13:59 | disposition home or self-care (01) ==
LOC: HO.HUSH 13:11
PROVIDERS: PCP Internal Medicine; Visit Provider Urology
DX: C61 Malignant neoplasm of prostate (principal); C77.2 Secondary and unspecified malignant neoplasm of intra-abdominal lymph nodes; N52.35 Erectile dysfunction following radiation therapy
CPT/HCPCS: 99213; G2211

== ENCOUNTER 2024-12-31 12:47 | Outpatient (AMB) | payer OTHER, SELFPAY ==
[2024-12-31 13:26] VITALS: BP 120/62; PULSE 66; BMI 42.2
--- NOTE | 2024-12-31 13:26 | MHC.OFFVIS ---
Vital Signs 12/31/24 13:26 Height 6 ft 1 in Weight 319 lb 10.724 oz BMI 42.2 BP 120/62 Blood Pressure Location Lt brachial Position Sitting Pulse 66 Pulse Source Pulse Oximeter Intake Visit Reasons: 6m w device ck Allergies No Known Allergies (No Known Allergies*) Allergy (Verified 12/20/24 13:23) Medication List - Last Reconciled 12/31/24 by Young Ramirez MD acetaminophen 650 mg PO Q6H PRN atenolol 50 mg PO DAILY atorvastatin 40 mg PO BEDTIME [compression stockings knee-high 20 mmHg] darolutamide (Nubeqa) 300 mg PO BID furosemide 40 mg PO QAM lactulose 15 mL PO DAILY lisinopril 20 mg PO DAILY 90 days oxycodone-acetaminophen 5-325 mg 1 tab PO Q12H PRN 30 days potassium chloride ER (Klor-Con M) 20 mEq PO QAM warfarin 5 mg See Protocol PO DAILY 90 days HPI Comments Details: Andres returns for follow-up regarding his various cardiac issues. He has a long and complex cardiac history. He was diagnosed with hypertrophic cardiomyopathy many years ago. Had an ICD placed for secondary prevention due to ventricular tachycardia. Also has paroxysmal atrial fibrillation that is rather persistent recently. Was taking Xarelto but there were compliance issues and he was then diagnosed with stroke. Then switched to Eliquis. Then in the last few years, diagnosed with severe mitral regurgitation and referred to [facility]. Underwent MitraClip placement. That was complicated by embolism of the mitral clip which led to open mitral valve replacement. In spite of all the above, he recovered quite well and actually doing quite good. He states he is walking more than an hour daily with no issues. No cardiac symptoms. [facility] Medical History Prostate cancer Seroma after procedure Peripheral vascular disease Poor circulation Leg edema Morbid obesity Opiate dependence AXEL (obstructive sleep apnea) Lumbar degenerative disc disease PAF (paroxysmal atrial fibrillation) Essential hypertension History of stroke Paroxysmal atrial flutter Ventricular tachyarrhythmia Hypertrophic cardiomyopathy Surgical History H/O colonoscopy Status post aorto-coronary artery bypass graft Status post mitral valve replacement Status post implantation of mitral valve leaflet clip History of cardiac pacemaker (~03/2014) History of cardiac catheterization Family History Father Diabetes Mother No problems noted. Social History Housing: Apartment Alcohol intake: current Alcohol intake frequency: holidays/special occasions only Alcohol type: hard liquor Patient Tobacco Use Status: Never used Tobacco e-Cigarette/Vaping Use: Never Used Second Hand Smoke Exposure: No service: No Current occupational status: unemployed Cognitive needs: Yes Hearing needs: No Vision needs: Yes Review of Systems Const Denies weakness ENT Denies dizziness Card Denies chest pain, Denies chest pain with activity, Denies syncope, Denies rapid heart rate, Denies pedal edema, Denies edema, Denies leg edema, Denies lightheadedness, Denies palpitations, Denies dyspnea, Denies dyspnea on exertion and Denies orthopnea Resp Denies cough, Denies dyspnea and Denies dyspnea on exertion GI Denies hematochezia and Denies change in stool character Musc Denies abnormal gait, Denies muscle cramps, Denies muscle weakness, Denies numbness, Denies radiating pain into limb and Denies tingling Neuro Denies abnormal gait, Denies dizziness, Denies syncope, Denies numbness, Denies tingling and Denies weakness Endo Denies palpitations Physical Exam Vital Signs: Last Vital Signs Pulse 66 12/31/24 13:26 BP 120/62 12/31/24 13:26 BMI result Body Mass Index 42.2 Const General: comfortable and no acute distress Orientation/consciousness: patient oriented x3 HEENT Other: Unremarkable Head: Yes normal to inspection Neck Neck: Yes normal visual inspection Chest Chest palpation & inspection: normal inspection of the chest Resp Auscultation: clear to auscultation bilaterally Cardio Palpation: normal PMI Heart sounds: S1 normal heart sound present, S2 normal heart sound present, no gallops, no murmurs and no rubs GI Palpation (GI): Soft to palpation Back/Spine/Pelvis Other: unremarkable Skin General skin exam: no rashes or lesions noted Neuro General: patient oriented x3 Extrem General: Yes normal to inspection Psych Mental Status: mental status grossly normal Office Procedures Cardiac Device Check Cardiac Device Check Details: ICD interrogated today. Single-chamber device, programmed VVI. Battery status 1.9 of 2.2 years. Normal lead parameters. Ventricular pacing < 1%. No treated episodes. 2 nonsustained episodes. Overall, normal device function. [id number] Cardiac Device Check, single lead implantable defibrillator Procedure code (CPT) selection complete Assessment & Plan Assessment & Plan (1) Status post mitral valve replacement: Code(s): Z95.2 - Presence of prosthetic heart valve Category: Surgical Plan: Status post mechanical mitral valve replacement with On-X valve. Also had tricuspid valve repair with 34 mm Medtronic band. Per [facility] discharge summary, goal INR 2.5-3. 2-3 also mentioned to be as acceptable. He was on aspirin but decided not take it anymore. Infective endocarditis prophylaxis as needed. Normally functioning mechanical mitral valve on last echocardiogram. (2) Status post implantation of mitral valve leaflet clip: Code(s): Z98.890 - Other specified postprocedural states; Z95.818 - Presence of other cardiac implants and grafts Category: Surgical Plan: Status post removal. (3) Status post aorto-coronary artery bypass graft: Code(s): Z95.1 - Presence of aortocoronary bypass graft Category: Surgical Plan: Status post CABG x1; saphenous vein graft right coronary artery. Based on the op note, embolization of MitraClip right coronary artery ostia with right coronary artery occlusion and acute [place]. Based on catheterization report, no significant obstructive coronary disease overall. (4) Hypertrophic cardiomyopathy: Code(s): I42.2 - Other hypertrophic cardiomyopathy Category: Medical Plan: No active symptoms. He is only on atenolol. No longer taking verapamil. Had taken disopyramide long time ago. (5) Ventricular tachyarrhythmia: Code(s): I47.2 - Ventricular tachycardia Category: Medical Plan: He has had ICD for several years. No shocks delivered. Normal function. (6) Persistent atrial fibrillation: Code(s): I48.19 - Other persistent atrial fibrillation Category: Medical Plan: On beta-blockers. Continue anticoagulation. (7) Essential hypertension: Code(s): I10 - Essential (primary) hypertension Category: Medical Plan: Stable. No changes. (8) History of stroke: Code(s): Z86.73 - Personal history of transient ischemic attack (TIA), and cerebral infarction without residual deficits Category: Medical Plan: Likely cardioembolic. In the past, CTA has been performed at [facility] without any significant carotid disease. (9) AXEL (obstructive sleep apnea): Comment: He does have severe obstructive Sleep apnea He is very very compliant and benefits from the use of CPAP. His sleep quality is much better. Code(s): G47.33 - Obstructive sleep apnea (adult) (pediatric) Category: Medical Plan: h/o possibly uvulopalatopharyngoplasty per patient. Last sleep study reported to have severe AXEL. CPAP Plan Discussion Notes During the visit, we discussed the importance of maintaining the INR within the therapeutic range. We also addressed the need for a follow-up echocardiogram, given that it has been over 2 years since the last one, to ensure ongoing cardiovascular health monitoring. Patient was informed and verbally consented to the use of an ambient scribe for clinic note documentation during this visit. Orders: Orders CA echo transthoracic complete 6 Months Z95.2 - Presence of prosthetic heart valve Coding Level of Care Code Est Pt Level 4 (46103) Complex EM visit Add On G2211 Diagnoses Status post mitral valve replacement Z95.2 Status post implantation of mitral valve leaflet clip Z98.890; Z95.818 Status post aorto-coronary artery bypass graft Z95.1 Hypertrophic cardiomyopathy I42.2 Ventricular tachyarrhythmia I47.2 Persistent atrial fibrillation I48.19 Essential hypertension I10 History of stroke Z86.73 AXEL (obstructive sleep apnea) G47.33 CPT Codes Cardiac Device Check - Cardiac Device 4: [id number] Cardiac Device Check, single lead implantable defibrillator ([id number])
--- OUTSIDE RECORDS SUMMARY | 2024-12-31 14:03 | XMS_ITS | Clinical Summary ---
Author Organization [facility] Address [address] [place] [address] Phone Care Team Providers Care Service Counselor Name Role Phone Barbara Peterson MD Primary Care Provider [phone] Allergies No known active allergies Medications atenoloL [...] LAB CHEMISTRY METHOD 09/01/2024 7:02 AM EDT [facility] BUN 15 5 - 25 mg/dL LAB CHEMISTRY METHOD 09/01/2024 7:02 AM [facility] Creatinine 0.91 0.70 - 1.30 mg/dL LAB CHEMISTRY METHOD 09/01/2024 7:02 AM EDT [facility] eGFR 92 >=60 mL/min/1. 73m2 LAB CHEMISTRY METHOD 09/01/2024 7:02 AM [facility] Comment:Calculation based on the Chronic Kidney Disease Epidemiology Collaboration (CKD-EPI) equation refit without adjustment for race. BUN/Creatinine Ratio 16.5 LAB CHEMISTRY METHOD 09/01/2024 7:02 AM [facility] Calcium 9.2 8.5 - 10.5 mg/dL LAB CHEMISTRY METHOD 09/01/2024 7:02 AM T [facility] Blood Venous blood specimen / Unknown Venipuncture / Unknown 09/01/2024 5:54 AM EDT 09/01/2024 6:07 AM EDT us Willam Jovel MD LAB BLOOD ORDERABLES Final Res ult [facility] [address] [place] [address], * Lipid panel with reflex to direct LDL (08/31/2024 8:36 AM EDT) Cholesterol 127 0 - 200 mg/dL LAB CHEMISTRY METHOD 08/31/2024 2:25 PM EDT [facility] Triglycerides 117 0 - 150 mg/dL LAB CHEMISTRY METHOD 08/31/2024 2:25 PM T [facility] HDL 61 >=40 mg/dL LAB CHEMISTRY METHOD 08/31/2024 2:25 PM EDT [facility] LDL Calculated 43 0 - 100 mg/dL LAB CHEMISTRY METHOD 08/31/2024 2:25 PM EDT [facility] VLDL Cholesterol Darren 23.4 mg/dL LAB CHEMISTRY METHOD 08/31/2024 2:25 PM EDT [facility] Non HDL Chol. (LDL+VLDL) 66 <145 mg/dL LAB CHEMISTRY METHOD 08/31/2024 2:25 PM EDT [facility] Chol/HDL Ratio 2.1 0.0 - 4.4 LAB CHEMISTRY METHOD 08/31/2024 2:25 PM EDT [facility] Blood Venous blood specimen / Unknown Venipuncture / Unknown 08/31/2024 8:36 AM EDT 08/31/2024 9:04 AM EDT us Willam Jovel MD LAB BLOOD ORDERABLES Final Res ult [facility] [address] [place] [address], from Last 3 Months or Most Recently Relevant to Health Maintenance Insurance [facility] Member Subscriber Plan / Payer (Ef fective 2022-Present) Name:Andres Weiss Relation to Subscriber:Self Name:Andres Weiss Payer ID:[id number] Group ID:[id number] Type:Not on file Address: [address] [facility] [place] [id number] [facility] MEDICARE Member Subscriber Plan / Payer (Ef fective 2022-Present) Name:Andres Weiss Relation to Subscriber:Self Name:Isela, Chepe Payer ID:[id number] Group ID:[id number] Type:Not on file Address: [address] [place] [id number] Advance Directives * Full Code - Default [...] currently active code status orders. Care Teams Service Counselor Relationship Specialty Start Date End Date Barbara Peterson MD [address] [facility] , [address] [place] [address] Physician Associ D/B/A: [facility] JASEN Perez PCP - General Internal Medicine 08/31/24
--- OUTSIDE RECORDS SUMMARY | 2024-12-31 14:03 | XMS_ITS | Encounter Summary ---
Author Organization [facility] Address [address] [facility] [address] [place] [address] Care Team Providers Care Womens Health Nurse Practitioner Name Role Phone Barbara Valdivia MD Primary Care Provider [phone] Young Ramirez MD Unavailable [phone] Reason for Visit * Reason Comments Med Refill Encounter Details Date Type Department Care Team (Late st Contact Info) Description 01/21/2022 Refill [facility] [address] [place] [phone] Tunde Urias, [place] [address] [facility] [address] [place] [address] Severe mitral regurgitation Social History Tobacco Use [...] regurgitation documented in this encounter Care Teams Womens Health Nurse Practitioner Relationship Specialty Start Date End Date Barbara Valdivia MD [address] [place] [address] PCP - General 06/04/21 Young Ramirez MD [address] 3rd [place] [address] Hydraulic Chair Assembler Cardiology 12/21/21 documented as of this encounter
--- OUTSIDE RECORDS SUMMARY | 2024-12-31 14:03 | XMS_ITS | Encounter Summary ---
Author Organization [facility] Address [address] [facility] [address] [place] [address] Care Team Providers Care Corset Maker Name Role Phone Barbara Valdivia MD Primary Care Provider [phone] Young Ramirez MD Unavailable [phone] Reason for Visit * Reason Comments Med Refill Encounter Details Date Type Department Care Team (Late st Contact Info) Description 06/20/2023 Refill [facility] [address] [place] [phone] Tunde Urias, [place] [address] [facility] [address] [place] [address] Severe mitral regurgitation Social History Tobacco Use [...] regurgitation documented in this encounter Care Teams Corset Maker Relationship Specialty Start Date End Date Barbara Valdivia MD [address] [place] [address] PCP - General 06/04/21 Young Ramirez MD [address] [place] [address] Factory Machine Computer Operator Cardiology 12/21/21 documented as of this encounter
--- OUTSIDE RECORDS SUMMARY | 2024-12-31 14:03 | XMS_ITS | Encounter Summary ---
Author Organization [facility] Address [address] [facility] [address] [place] [address] Care Team Providers Care Tile Layer Drainage Name Role Phone Barbara Valdivia MD Primary Care Provider Young Ramirez MD Unavailable [phone] Reason for Visit * Reason Comments Med Refill Encounter Details Date Type Department Care Team (Late st Contact Info) Description 12/19/2022 Refill [facility] [address] [place] [phone] Tunde Urias, [place] [address] [facility] [address] [place] [address] Severe mitral regurgitation Social History Tobacco Use [...] regurgitation documented in this encounter Care Teams Tile Layer Drainage Relationship Specialty Start Date End Date Barbara Valdivia MD [address] [place] [address] PCP - General 06/04/21 Young Ramirez MD [address] 3[address] [place] [address] Wing Coverer Cardiology 12/21/21 documented as of this encounter
--- OUTSIDE RECORDS SUMMARY | 2024-12-31 14:03 | XMS_ITS | Clinical Summary ---
Author Organization [facility] Address [address] [facility] [place] [address] Care Team Providers Care Historic Preservationist Name Role Phone Barbara Valdivia MD Primary Care Provider [phone] Young Ramirez MD Unavailable [phone] Allergies No known active allergies Medications finasteride (Proscar) 5 mg tablet Take 5 mg by mouth in the morning. 2 Active albuterol 90 mcg/actuation inhaler Inhale 1 puff every 4 (four) hours if needed for wheezing. 7 Active atorvastatin (Lipitor) 40 mg tablet Take 40 mg by mouth in the morning. Active fluticasone propion-salmetero L (Advair Diskus) 100-50 mcg/dose diskus inhaler Inhale 1 puff in the morning and at bedtime. Rinse mouth with water after use to reduce aftertaste and incidence of candidiasis. Do not swallow. Active aspirin 81 mg EC tablet Take 81 mg by mouth in the morning. Active docusate sodium (Colace) 100 mg capsuleIndication s:Severe mitral regurgitation Take 1 capsule (100 mg) by mouth if needed in the morning and at bedtime for constipation. 60 capsule 2 Active furosemide (Lasix) 40 mg tabletIndications :Severe mitral regurgitation Take 1 tablet (40 mg) by mouth in the morning. 30 tablet 11 2 Active melatonin 3 mg tabletIndications :Severe mitral regurgitation Take 1 tablet (3 mg) by mouth if needed at bedtime for sleep. 30 tablet 2 Active metoprolol succinate XL (Toprol-XL) 25 mg 24 hr tabletIndications :Severe mitral regurgitation Take 1.5 tablets (37.5 mg) by mouth in the morning. Do not crush or chew. 45 tablet 11 2 Active pantoprazole (ProtoNix) 40 mg EC tabletIndications :Severe mitral regurgitation Take 1 tablet (40 mg) by mouth before breakfast. Do not crush, chew, or split. 30 tablet 11 2 Active warfarin (Coumadin) 5 mg tabletIndications :Severe mitral regurgitation Take as directed per After Visit Summary. 90 tablet 2 2 Active Active Problems Problem Noted Date Diagnosed Date Heart failure (Multi-HCC) 12/14/2021 Severe mitral regurgitation 09/21/2021 Atrial fibrillation (Multi-HCC) 09/21/2021 Hypertrophic cardiomyopathy (Multi-HCC) 09/22/19 ICD (implantable cardioverter-defibrillator) in place 09/21/2021 Hypertension 09/21/2021 Asthma (Multi-HCC) 09/21/2021 Impaired tolerance of activity Decreased functional mobility Alteration in self-care ability Family History Medical History Relation Name Comments Hypertrophic cardiomyopathy Brother Relation Name Status Comments Brother Social History Tobacco Use Types Packs/Day Years Used Date Smoking Tobacco: Never Smokeless Tobacco: Never Alcohol Use Standard Drinks/Week Comments Not Currently 0 (1 standard drink = 0.6 oz pur e alcohol) Sex and Gender Information Value Date Recorded Sex Assigned at Not on file Legal Sex Male 12:07 AM EST Gender Identity Male 12/14/2021 8:39 PM EDT Sexual Orientation Not on file Last Filed Vital Signs Vital Sign Reading Time Taken Comments Blood Pressure 120/61 01/01/2022 11:40 AM EDT Pulse 89 01/01/2022 11:40 AM EDT Temperature 36.6 C (97.9 F) 01/01/2022 11:40 AM EDT Respiratory Rate 18 01/01/2022 11:40 AM EDT Oxygen Saturation 98% 01/01/2022 11:40 AM EDT Inhaled Oxygen Concentration - - Weight 131.6 kg (290 lb 2 oz) 01/01/2022 12:42 P M EDT Height 182.9 cm (6' 0.01 ) 12/31/2021 2:55 PM ED T Body Mass Index 39.34 12/31/2021 2:55 PM EDT Plan of Treatment Health Maintenance Due Date Last Done Comments CT Colonography 1956 Colonoscopy 1955 FIT-DNA 1956 Sigmoidoscopy 1956 DTaP/Tdap/Td Vaccines (1 - Tdap) 07/11/1975 Zoster Vaccines (1 of 2) 2006 Colorectal Cancer Screening 12/31/2022 FIT 12/31/2022 12/31/2021, 12/15/2021 FOBT 12/31/2022 12/31/2021, 12/15/2021 Medicare Annual Wellness (AWV) 10/30/2023 Depression Screening 05/01/2024 COVID-19 Vaccine ( season) 2024 02/21/2024, 04/21/2023, 07/30/2021, Additional history exists Influenza Vaccine (#1) 2024 02/21/2024, 2022 Diabetes Screening 08/31/2025 08/31/2024, 0 08/31/2024, 12/26/2021, Additional history exists Lipid Panel 08/31/2029 08/31/2024, 12/15/2021 Hepatitis C Screening Completed 12/29/2021 Pneumococcal Vaccine: 50+ Years Completed 02/21/2024, 01/13/2017 Pneumococcal Vaccine: Pediatrics (0 to 5 Years) and At-Risk Patients (6 to 49 Years) Discontinued 02/21/2024, 01/13/2017 High Risk LDL Discontinued 08/31/2024, 12/15/2021 HIB Vaccines Aged Out No longer eligi [...] patient's age to complete this topic Meningococcal Vaccine Aged Out No kylah george eligible based on patient's age to complete this topic Rotavirus Vaccines Aged Out No longer eligible based on patient's age to complete this topic Medical Devices Implanted Type Area Metal Lather Device Identifier Shelf Expiration Date Model / Serial / Lot Raker Buffing Wheel-D Icd TECHNICIAN-D ICD Left: Chest [employer] Unknown [id number] Cardiac Pacemaker [employer] UNKNOWN / [id number] / Band Tri-Ad 2.0 Harper 34mm - [id number] - [id number] Implanted:Qty : 1 on 12/21/2021 by Cheo Cannon MD at [facility] Heart Valve Repair N/A: Chest [employer] PACING 01/25/2026 [id number] / [id number] / Device Ck Cor Knot - Sna - [id number] Implanted:Qty : 1 on 12/21/2021 by Cheo Cnanon MD at [facility] Implant N/A: Chest [employer] 08/23/2023 [id number] / NA / Valve On-X Mitral 31/33mm W/St - [id number] - [id number] Implanted:Qty : 1 on 12/21/2021 by Cheo Cannon MD at [facility] Prosthetic Valve N/A: Heart [employer] 05/10/2027 [id number]-31/33 / [id number] / Patch Photofix 0.8x8cm - Sna - [id number] Implanted:Qty : 1 on 12/21/2021 by Cheo Cannon MD at [facility] Vascular Graft N/A: Aorta [employer] 07/25/2023 [id number] / NA / [id number] Procedures Procedure Name Priority Date/Time Associated Diagnosis Comments OCCULT BLOOD X 3, STOOL NON-NEOPLASM SCREEN Routine 12/31/2021 11:03 AM EDT HCV AB W/REFLEX QUANT PCR (SCREENING) Add-On 12/29/2021 6:39 AM EDT GLUCOSE Routine 12/26/2021 4:19 AM EDT LIPID PANEL Add-On 12/15/2021 4:25 AM EDT from Last 3 Months or Most Recently Relevant to Health Maintenance Results * (ABNORMAL) Occult blood x 1, stool (12/31/2021 11:03 AM EDT) Pathologist [facility] Date I MANUAL METHOD 12/31/2021 11:37 AM EDT [facility] Occult Blood Stool I Positive( A) Negative, No Sample Received MANUAL METHOD 12/31/2021 11:37 AM EDT [facility] Stool Rectal contents / Unknown Non-blood Collection / Unknown 12/31/2021 11:03 AM EDT 12/31/2021 11:07 AM EDT Cheo Cannon MD LAB BODY FLUIDS AND STOOLS ORDERABLES Final Result Performing Organization Address [facility] Co de Phone Number [facility] [address] [place] [address], * Hepatitis C antibody (12/29/2021 6:39 AM EDT) [facility] Hepatitis C antibody Non Reactive Non Reactive [facility] ARCH I2000 3 12/29/2021 10:58 AM EDT [facility] Comment:Antibodies to HCV no t detected; does not exclude the possibility of exposure to HCV. Blood Venous blood specimen / Unknown Venipuncture / Unknown 12/29/2021 6:39 AM EDT 12/29/2021 6:39 AM EDT Narrative [facility] - 12/29/2021 10:58 AM EDT The positive predictive value of this antibody test varies with the prevalence of Hepatitis C virus. Clinical confirmation of Hepatitis C using a qualitative Hepatitis C RNA determination may be indicated. [facility] LAB BLOOD ORDERABLES Final Re sult Performing Organization Address City/[facility]/ZIP Co de Phone Number [facility] [address] [place] [address], * Glucose, random (12/26/2021 4:19 AM EDT) [facility] Glucose 100 70 - 139 mg/dL 12/26/2021 5:30 AM EDT [facility] Fasting? Unknown 12/26/2021 5:30 AM EDT [facility] Blood Venous blood specimen / Unknown Venipuncture / Unknown 12/26/2021 4:19 AM EDT 12/26/2021 4:36 AM EDT Cheo Cannon MD LAB BLOOD ORDERABLES Final Result Performing Organization Address [facility] Co de Phone Number [facility] [address] * Lipid panel (12/15/2021 4:25 AM EDT) Triglycerides 62 <=150 mg/dL 12/15/2021 2:09 PM EDT [facility] Cholesterol 123 <=200 mg/dL 12/15/2021 2:09 PM EDT [facility] HDL cholesterol 42 >=40 mg/dL 2:09 PM EDT [facility] LDL cholesterol, calculated 69 0 - 130 mg/dL 12/15/2021 2:09 PM EDT [facility] Cholesterol/HDL Ratio 2.9 12/15/2021 2:09 PM EDT [facility] Blood Venous blood specimen / Unknown Venipuncture / Unknown 12/15/2021 4:25 AM EDT 12/15/2021 5:31 AM EDT Pritesh Salinas MD LAB BLOOD ORDERABLES Final Re sult Performing Organization Address [facility] Co de Phone Number [facility] [address] from Last 3 Months or Most Recently Relevant to Health Maintenance Insurance MEDICARE PART A AND B MEDICAID STANDARD [facility] JAIL OPTIONS Advance Directives Documents on File Type Date Recorded Patient Back Shoe Worker Expl [facility] Health Care Proxy 06/27/2021 8:07 AM Conve [facility] Healthcare Proxy ([facility] So[facility] DM) Health Care Proxy 06/18/2021 3:10 PM Conve [facility] Healthcare Proxy ([facility] DM) Advance Directives and Living Will 12/16/2021 Health Care Proxy * Full Code (Latest Code Status on File) Date Activated Date Inactivated Comments 12/21/2021 9:39 PM 01/01/2022 4:30 PM * Full Code Date Activated Date Inactivated Comments 12/14/2021 6:44 PM 12/21/2021 9:39 PM Care Teams Historic Preservationist Relationship Specialty Start Date End Date Barbara Valdivia MD [address] [place] [address] PCP - General 06/04/21 Young Ramirez MD [address] [place] [address] Bus Or Truck Garage Mechanic Cardiology 12/21/21
--- OUTSIDE RECORDS SUMMARY | 2024-12-31 14:03 | XMS_ITS | Encounter Summary ---
Author Organization [facility] Address [address] [facility] [address] [place] [address] Care Team Providers Care Manager Financial Services Name Role Phone Barbara Valdivia MD Primary Care Provider [phone] Young Ramirez MD Unavailable [phone] Reason for Visit * Reason Comments Med Refill Encounter Details Date Type Department Care Team (Late st Contact Info) Description 12/16/2022 Refill [facility] Medical Surgical Unit [address] [place] [phone] Tunde Urias, FLAC[place] [address] [facility] [address] [place] [address] Severe mitral regurgitation Social History Tobacco Use [...] regurgitation documented in this encounter Care Teams Manager Financial Services Relationship Specialty Start Date End Date Barbara Valdivia MD [address] [place] [address] PCP - General 06/04/21 Young Ramirez MD [address] [place] [address] Branch Banker Cardiology 12/21/21 documented as of this encounter
--- OUTSIDE RECORDS SUMMARY | 2024-12-31 14:03 | XMS_ITS | Encounter Summary ---
Author Organization [facility] Address [address] [facility] [address] [place] [address] Care Team Providers Care Wheel Press Clerk Name Role Phone Barbara Valdivia MD Primary Care Provider [phone] Young Ramirez MD Unavailable [phone] Reason for Visit * Reason Comments Med Refill Encounter Details Date Type Department Care Team (Late st Contact Info) Description 06/21/2022 Refill [facility] Medical Surgical Unit [address] [place] [phone] Tunde Urias, FLACO [address] [facility] [address] [place] [address] Severe mitral regurgitation Social History Tobacco Use [...] regurgitation documented in this encounter Care Teams Wheel Press Clerk Relationship Specialty Start Date End Date Barbara Valdivia MD [address] [place] [address] PCP - General 06/04/21 Young Ramirez MD [address] [place] [address] Safety Pin Assembling Machine Operator Cardiology 12/21/21 documented as of this encounter
== END 2024-12-31 13:46 | disposition home or self-care (01) ==
LOC: HO.HCS 12:48
PROVIDERS: PCP Internal Medicine; Visit Provider Internal Medicine
DX: I42.2 Other hypertrophic cardiomyopathy (principal); I47.20 Ventricular tachycardia, unspecified; Z95.2 Presence of prosthetic heart valve; Z98.890 Other specified postprocedural states; Z95.818 Presence of other cardiac implants and grafts; Z95.1 Presence of aortocoronary bypass graft; I48.19 Other persistent atrial fibrillation; I10 Essential (primary) hypertension; Z86.73 Personal history of transient ischemic attack (TIA), and cerebral infarction without residual deficits; G47.33 Obstructive sleep apnea (adult) (pediatric)
CPT/HCPCS: 93282; 99214; G2211

== ENCOUNTER → 2024-12-31 12:47 | Outpatient (BNVA) | payer OTHER, SELFPAY | PROVIDERS: PCP Internal Medicine; Visit Provider Internal Medicine | DX: I10 Essential (primary) hypertension (principal); I48.19 Other persistent atrial fibrillation; I47.20 Ventricular tachycardia, unspecified; I42.2 Other hypertrophic cardiomyopathy; Z95.1 Presence of aortocoronary bypass graft; Z86.73 Personal history of transient ischemic attack (TIA), and cerebral infarction without residual deficits; G47.33 Obstructive sleep apnea (adult) (pediatric); Z95.2 Presence of prosthetic heart valve; Z95.818 Presence of other cardiac implants and grafts | CPT/HCPCS: 99212 ==

== ENCOUNTER 2025-01-03 10:07 | Outpatient (AMB) | payer OTHER, SELFPAY ==
--- NOTE | 2025-01-03 10:41 | MHC.OFFVISCO ---
Intake Intake Visit Reasons: Anticoagulation Allergies No Known Allergies (No Known Allergies*) Allergy (Verified 01/03/25 10:38) Medication List - Last Reconciled 01/03/25 by Lanie Hendrickson RN acetaminophen 650 mg PO Q6H PRN atenolol 50 mg PO DAILY atorvastatin 40 mg PO BEDTIME [compression stockings knee-high 20 mmHg] darolutamide (Nubeqa) 300 mg PO BID furosemide 40 mg PO QAM lactulose 15 mL PO DAILY lisinopril 20 mg PO DAILY 90 days oxycodone-acetaminophen 5-325 mg 1 tab PO Q12H PRN 30 days potassium chloride ER (Klor-Con M) 20 mEq PO QAM warfarin 5 mg See Protocol PO DAILY 90 days Nursing Note INR 3.5-? out of therapeutic range 2.5-3.0 Medications and supplements reviewed Patient status: no c.o, had a lot of grapes yesterday Medications or supplements: no changes Diet: same Denies any signs and symptoms of bleeding or clotting or unusual bruising Bleeding, bruising, clotting discussed Nutritional guidance given: eat greens for 2 days, no reds for 2 days Dose: 2.5mg today then cont 5mg x 7 F/U INR Date : 2 weeks?? Patient verbalizing understanding of instructions given. Anti-Coag Initial Assessment Social Hx Patient Tobacco Use Status: Never used Tobacco alcohol intake: current Alcohol intake frequency: holidays/special occasions only Cardiovascular Hx: HTN, Arrhythmias and Cardiomyopathy Musculoskeletal Hx: Other Blood Disorder Hx: Hyperlipidemia Hx: Prostate Neurological Hx: Stroke/TIA Cancer HX: Yes (prostate) Psych. Illness/Depression: No Coding Level of Care Code Est Patient Level 1 Diagnoses Current use of anticoagulant therapy Z79.01 Results AMB INR Fingerstick AMB INR Fingerstick 3.5 Last Edit by Lanie Hendrickson RN on 01/03/25 10:44 interface delay Assessment & Plan Assessment & Plan (1) Current use of anticoagulant therapy: Code(s): Z79.01 - FPC (current) use of anticoagulants Category: Medical
[2025-01-03 10:43] LABS: Prothrombin Time Whole Bld POC 42.2 sec (11.1-13.5); ~PT, ~INR - Anti Coag Clinic 3.5 (0.9-1.1)
--- OUTSIDE RECORDS SUMMARY | 2025-01-03 11:03 | XMS_ITS | Clinical Summary ---
Author Organization [facility] Address [address] [place] [address] Phone Care Team Providers Care Truck Driving Name Role Phone Barbara Peterson MD Primary Care Provider [phone] Allergies No known active allergies Medications atenoloL [...] AM EDT [facility] BUN 15 5 - 25 mg/dL LAB CHEMISTRY METHOD 09/01/2024 7:02 AM [facility] Creatinine 0.91 0.70 - 1.30 mg/dL LAB CHEMISTRY METHOD 09/01/2024 7:02 AM EDT [facility] eGFR 92 >=60 mL/min/1. 73m2 LAB CHEMISTRY METHOD 09/01/2024 7:02 AM [facility] Comment:Calculation based on the Chronic Kidney Disease Epidemiology Collaboration (CKD-EPI) equation refit without adjustment for race. BUN/Creatinine Ratio 16.5 LAB CHEMISTRY METHOD 09/01/2024 7:02 AM [facility] Calcium 9.2 8.5 - 10.5 mg/dL LAB CHEMISTRY METHOD 09/01/2024 7:02 AM T [facility] Blood Venous blood specimen / Unknown Venipuncture / Unknown 09/01/2024 5:54 AM EDT 09/01/2024 6:07 AM EDT us Willam Jovel MD LAB BLOOD ORDERABLES Final Res ult [facility] [address] [place] [address], * Lipid panel with reflex to direct LDL (08/31/2024 8:36 AM EDT) Cholesterol 127 0 - 200 mg/dL LAB CHEMISTRY METHOD 08/31/2024 2:25 PM EDT [facility] Triglycerides 117 0 - 150 mg/dL LAB CHEMISTRY METHOD 08/31/2024 2:25 PM T [facility] HDL 61 >=40 mg/dL LAB CHEMISTRY METHOD 08/31/2024 2:25 PM EDT [facility] LDL Calculated 43 0 - 100 mg/dL LAB CHEMISTRY METHOD 08/31/2024 2:25 PM EDT [facility] VLDL Cholesterol Darren 23.4 mg/dL LAB CHEMISTRY METHOD 08/31/2024 2:25 PM EDT [facility] Non HDL [...] ult [facility] [address] [place] [address], from Last 3 Months or Most Recently Relevant to Health Maintenance Insurance [facility] Member Subscriber Plan / Payer (Ef fective 2022-Present) Name:Andres Weiss Relation to Subscriber:Self Name:Andres Weiss Payer ID:[id number] Group ID:[id number] Type:Not on file Address: [address] [facility] [place] [id number] [facility] MEDICARE Member Subscriber Plan / Payer (Ef fective 2022-Present) Name:Andres Weiss Relation to Subscriber:Self Name:Isela, Chepe Payer ID:[id number] Group ID:[id number] Type:Not on file Address: [address] [place] [id number] Advance Directives * Full Code - Default [...] currently active code status orders. Care Teams Truck Driving Relationship Specialty Start Date End Date Barbara Peterson MD [address] [facility] , [address] [place] [address] Physician Associ D/B/A: [facility] JASEN Perez PCP - General Internal Medicine 08/31/24
--- OUTSIDE RECORDS SUMMARY | 2025-01-03 11:03 | XMS_ITS | Encounter Summary ---
Author Organization [facility] Address [address] [facility] [address] [place] [address] Care Team Providers Care Crime Scene Evidence Technician Name Role Phone Barbara Valdivia MD Primary Care Provider [phone] Young Ramirez MD Unavailable [phone] Reason for Visit * Reason Comments Med Refill Encounter Details Date Type Department Care Team (Late st Contact Info) Description 06/21/2022 Refill [facility] Medical Surgical Unit [address] [place] [phone] Tunde Urias, [place]AC[place] [address] [facility] [address] [place] [address] Severe mitral regurgitation Social History Tobacco Use [...] regurgitation documented in this encounter Care Teams Crime Scene Evidence Technician Relationship Specialty Start Date End Date Barbara Valdivia MD [address] [place] [address] PCP - General 06/04/21 Young Ramirez MD [address]rd [place] [address] Windscreen Fitter Cardiology 12/21/21 documented as of this encounter
--- OUTSIDE RECORDS SUMMARY | 2025-01-03 11:03 | XMS_ITS | Encounter Summary ---
Author Organization [facility] Address [address] [facility] [address] [place] [address] Care Team Providers Care Chair Finisher Name Role Phone Barbara Valdivia MD Primary Care Provider [phone] Young Ramirez MD Unavailable [phone] Reason for Visit * Reason Comments Med Refill Encounter Details Date Type Department Care Team (Late st Contact Info) Description 12/16/2022 Refill [facility] Medical Surgical Unit [address] [place] [phone] Tunde Urias, [place] [address] [facility] [address] [place] [address] Severe mitral regurgitation Social History Tobacco Use [...] regurgitation documented in this encounter Care Teams Chair Finisher Relationship Specialty Start Date End Date Barbara Valdivia MD [address] [place] [address] PCP - General 06/04/21 Young Ramirez MD [address]rd [place] [address] Wire Weaver Cardiology 12/21/21 documented as of this encounter
--- OUTSIDE RECORDS SUMMARY | 2025-01-03 11:03 | XMS_ITS | Encounter Summary ---
Author Organization [facility] Address [address] [facility] [address] [place] [address] Care Team Providers Care Molder Meat Name Role Phone Barbara Valdivia MD Primary Care Provider [phone] Young Ramirez MD Unavailable [phone] Reason for Visit * Reason Comments Med Refill Encounter Details Date Type Department Care Team (Late st Contact Info) Description 06/20/2023 Refill [facility] Medical Surgical Unit [address] [place] [phone] Tunde Urias, FLAC[place] [address] [facility] [address] [place] [address] Severe mitral regurgitation Social History Tobacco Use [...] regurgitation documented in this encounter Care Teams Molder Meat Relationship Specialty Start Date End Date Barbara Valdivia MD [address] [facility] [address] [place] [address] PCP - General 06/04/21 Young Ramirez MD [address] [facility] [address] 3rd [place] [address] Front Desk Clerk Cardiology 12/21/21 documented as of this encounter
--- OUTSIDE RECORDS SUMMARY | 2025-01-03 11:03 | XMS_ITS | Clinical Summary ---
Author Organization [facility] Address [address] [place] [address] Care Team Providers Care Finger Waver Name Role Phone Barbara Valdivia MD Primary Care Provider [phone] Young Ramirez MD Unavailable [phone] Allergies No known active allergies Medications finasteride [...] this topic Medical Devices Implanted Type Area Manufacturing Mechanic Device Identifier Shelf Expiration Date Model / Serial / Lot Supervisor Adult Education-D Icd IDENTIFICATION AND RECORDS COMMANDER-D ICD Left: Chest [employer] Unknown [id number] Cardiac Pacemaker [employer] UNKNOWN / [id number] / Band Tri-Ad 2.0 Harper 34mm - [id number] - [id number] Implanted:Qty : 1 on 12/21/2021 by Cheo Cannon MD at [facility] Heart Valve Repair N/A: Chest [employer] PACING 01/25/2026 [id number] / [id number] / Device Ck Cor Knot - Sna - [id number] Implanted:Qty : 1 on 12/21/2021 by Cheo Cannon MD at [facility] Implant N/A: Chest [employer] 08/23/2023 [id number] / NA / Valve On-X Mitral 31/33mm W/St - [id number] - [id number] Implanted:Qty : 1 on 12/21/2021 by Cheo Cannon MD at [facility] Prosthetic Valve N/A: Heart [employer] 05/10/2027 ONXM-31/33 / [id number] / Patch Photofix 0.8x8cm - Sna - [id number] Implanted:Qty : 1 on 12/21/2021 by Cheo Cannon MD at [facility] Vascular Graft N/A: Aorta [employer] 07/25/2023 [id number] / NA / [id number] Procedures Procedure Name Priority Date/Time Associated Diagnosis [...] stool (12/31/2021 11:03 AM EDT) Pathologist [facility] Date I MANUAL METHOD 12/31/2021 11:37 AM EDT [facility] Occult Blood Stool I Positive( A) Negative, No Sample Received MANUAL METHOD 12/31/2021 11:37 AM EDT [facility] Stool Rectal contents / Unknown Non-blood Collection / Unknown 12/31/2021 11:03 AM EDT 12/31/2021 11:07 AM EDT Cheo Cannon MD LAB BODY FLUIDS AND STOOLS ORDERABLES Final Result Performing Organization Address [facility] Co de Phone Number [facility] [address] [place] [address], * Hepatitis C antibody (12/29/2021 6:39 AM EDT) [facility] Hepatitis C antibody Non Reactive Non Reactive [facility] I2000 3 12/29/2021 10:58 AM EDT [facility] Comment:Antibodies to HCV no t detected; does not exclude the possibility of exposure to HCV. Blood Venous blood specimen / Unknown Venipuncture / Unknown 12/29/2021 6:39 AM EDT 12/29/2021 6:39 AM EDT Narrative [facility] - 12/29/2021 10:58 AM EDT The positive predictive value of this antibody test varies with the prevalence of Hepatitis C virus. Clinical confirmation of Hepatitis C using a qualitative Hepatitis C RNA determination may be indicated. [facility] LAB BLOOD ORDERABLES Final Re sult Performing Organization Address City/[facility]/ZIP Co de Phone Number [facility] [address] [place] [address], * Glucose, random (12/26/2021 4:19 AM EDT) [facility] Glucose 100 70 - 139 mg/dL 12/26/2021 5:30 AM EDT [facility] Fasting? Unknown 12/26/2021 5:30 AM EDT [facility] Blood Venous blood specimen / Unknown Venipuncture / Unknown 12/26/2021 4:19 AM EDT 12/26/2021 4:36 AM EDT Cheo Cannon MD LAB BLOOD ORDERABLES Final Result Performing Organization Address [facility] Co de Phone Number [facility] [address] * Lipid panel (12/15/2021 4:25 AM EDT) Triglycerides 62 <=150 mg/dL 12/15/2021 2:09 PM EDT [facility] Cholesterol 123 <=200 mg/dL 12/15/2021 2:09 PM EDT [facility] HDL cholesterol 42 >=40 mg/dL 2:09 PM EDT [facility] LDL cholesterol, calculated 69 0 - 130 mg/dL 12/15/2021 2:09 PM EDT [facility] Cholesterol/HDL Ratio 2.9 12/15/2021 2:09 PM EDT [facility] Blood Venous blood specimen / Unknown Venipuncture / Unknown 12/15/2021 4:25 AM EDT 12/15/2021 5:31 AM EDT Pritesh Salinas MD LAB BLOOD ORDERABLES Final Re sult Performing Organization Address [facility] Co de Phone Number [facility] [address] from Last 3 Months or Most Recently Relevant to Health Maintenance Insurance MEDICARE PART A AND B MEDICAID STANDARD [facility] OPTIONS Advance Directives Documents on File Type Date Recorded Patient Pharmaceutical Physician Expl [facility] Proxy 06/27/2021 8:07 AM Conve [facility] Healthcare Proxy ([facility] Soarian DM) Health Care Proxy 06/18/2021 3:10 PM Conve [facility] Healthcare Proxy ([facility] DM) Advance Directives and Living Will 12/16/2021 Health Care Proxy * Full Code (Latest Code Status on File) Date Activated Date Inactivated Comments 12/21/2021 9:39 PM 01/01/2022 4:30 PM * Full Code Date Activated Date Inactivated Comments 12/14/2021 6:44 PM 12/21/2021 9:39 PM Care Teams Finger Waver Relationship Specialty Start Date End Date Barbara Valdivia MD [address] [place] [address] PCP - General 06/04/21 Young Ramirez MD [address] [place] [address] Parking Garage Manager Cardiology 12/21/21
--- OUTSIDE RECORDS SUMMARY | 2025-01-03 11:03 | XMS_ITS | Encounter Summary ---
Author Organization [facility] Address [address] [facility] [address] [place] [address] Care Team Providers Care Deckhand Name Role Phone Barbara Valdivia MD Primary Care Provider [phone] Young Ramirez MD Unavailable [phone] Reason for Visit * Reason Comments Med Refill Encounter Details Date Type Department Care Team (Late st Contact Info) Description 12/19/2022 Refill [facility] [address] [place] [id number] Tunde Urias, [place] [address] [facility] [address] [place] [address] Severe mitral regurgitation Social History Tobacco Use [...] regurgitation documented in this encounter Care Teams Deckhand Relationship Specialty Start Date End Date Barbara Valdivia MD [address] [place] [address] PCP - General 06/04/21 Young Ramirez MD [address] [place] [address] Fur Drummer Cardiology 12/21/21 documented as of this encounter
--- OUTSIDE RECORDS SUMMARY | 2025-01-03 11:03 | XMS_ITS | Encounter Summary ---
Author Organization [facility] Address [address] [facility] [address] [place] [address] Care Team Providers Care Business Ethics Professor Name Role Phone Barbara Valdivia MD Primary Care Provider Young Ramirez MD Unavailable [phone] Reason for Visit * Reason Comments Med Refill Encounter Details Date Type Department Care Team (Late st Contact Info) Description 01/21/2022 Refill [facility] Unit [address] [place] [id number] Tunde Urias, [place] [address] [facility] [address] [place] [address] Severe mitral regurgitation Social History Tobacco Use [...] regurgitation documented in this encounter Care Teams Business Ethics Professor Relationship Specialty Start Date End Date Barbara Valdivia MD [address] [place] [address] PCP - General 06/04/21 Young Ramirez MD [address] [place] [address] Rib Chopper Cardiology 12/21/21 documented as of this encounter
== END 2025-01-03 10:50 | disposition home or self-care (01) ==
LOC: HO.ACS 10:07
PROVIDERS: PCP Internal Medicine; Visit Provider Internal Medicine Medical Oncology
DX: Z79.01 Long term (current) use of anticoagulants (principal)

== ENCOUNTER → 2025-01-03 10:07 | Outpatient (BNVA) | payer OTHER, SELFPAY | PROVIDERS: PCP Internal Medicine; Visit Provider Internal Medicine Medical Oncology | DX: Z95.2 Presence of prosthetic heart valve (principal); Z79.01 Long term (current) use of anticoagulants; Z51.81 Encounter for therapeutic drug level monitoring | CPT/HCPCS: 85610; 99211 ==

== ENCOUNTER 2025-01-17 10:12 | Outpatient (AMB) | payer OTHER, SELFPAY ==
[2025-01-17 10:39] LABS: Prothrombin Time Whole Bld POC 44.4 sec (11.1-13.5); ~PT, ~INR - Anti Coag Clinic 3.7 (0.9-1.1)
--- NOTE | 2025-01-17 10:40 | MHC.OFFVISCO ---
Intake Intake Visit Reasons: Anticoagulation Allergies No Known Allergies (No Known Allergies*) Allergy (Verified 01/17/25 10:34) Medication List - Last Reconciled 01/17/25 by Brissa Daniels RN acetaminophen 650 mg PO Q6H PRN atenolol 50 mg PO DAILY atorvastatin 40 mg PO BEDTIME [compression stockings knee-high 20 mmHg] darolutamide (Nubeqa) 300 mg PO BID furosemide 40 mg PO QAM lactulose 15 mL PO DAILY lisinopril 20 mg PO DAILY 90 days oxycodone-acetaminophen 5-325 mg 1 tab PO Q12H PRN 30 days potassium chloride ER (Klor-Con M) 20 mEq PO QAM warfarin 5 mg See Protocol PO DAILY 90 days Nursing Note INR: 3.7 out of therapeutic range of 2.5-3.0 Medications and supplements reviewed Patient status: well Medications or supplements: no changes Diet: states he has been eating a lot of grapes Denies any signs and symptoms of bleeding or clotting or unusual bruising Bleeding, bruising, clotting discussed Nutritional guidance given: to have a serving of greens today Dose: hold today's dose of 5mg then 5mg daily F/U INR Date: 2 weeks? Patient verbalizing understanding of instructions given. Anti-Coag Initial Assessment Social Hx Patient Tobacco Use Status: Never used Tobacco alcohol intake: current Alcohol intake frequency: holidays/special occasions only Cardiovascular Hx: HTN, Arrhythmias and Cardiomyopathy Musculoskeletal Hx: Other Blood Disorder Hx: Hyperlipidemia Hx: Prostate Neurological Hx: Stroke/TIA Cancer HX: Yes (prostate) Psych. Illness/Depression: No Coding Level of Care Code Est Patient Level 1 Diagnoses Current use of anticoagulant therapy Z79.01 Assessment & Plan Assessment & Plan (1) Current use of anticoagulant therapy: Code(s): Z79.01 - philosophy faculty (current) use of anticoagulants Category: Medical
--- OUTSIDE RECORDS SUMMARY | 2025-01-17 10:46 | XMS_ITS | Clinical Summary ---
Author Organization [facility] Address [address] [place] [address] Phone Care Team Providers Care Senior Sales Executive Name Role Phone Barbara Peterson MD Primary Care Provider [phone] Allergies No known active allergies Medications atenoloL [...] mmol/L LAB CHEMISTRY METHOD 09/01/2024 7:02 AM [facility] Potassium 4.3 3.5 - 5.5 mmol/L LAB CHEMISTRY METHOD 09/01/2024 7:02 AM [facility] Chloride 104 96 - 110 mmol/L LAB CHEMISTRY METHOD 09/01/2024 7:02 AM [facility] CO2 29 21 - 32 mmol/L LAB CHEMISTRY METHOD 09/01/2024 7:02 AM [facility] Anion Gap 5 3 - 11 LAB CHEMISTRY METHOD 09/01/2024 7:02 AM [facility] Glucose 110(H) 70 - 100 mg/dL LAB CHEMISTRY METHOD 09/01/2024 7:02 AM EDT [facility] BUN 15 5 - 25 mg/dL LAB CHEMISTRY METHOD 09/01/2024 7:02 AM [facility] Creatinine 0.91 0.70 - 1.30 mg/dL LAB CHEMISTRY METHOD 09/01/2024 7:02 AM EDT [facility] eGFR 92 >=60 mL/min/1. 73m2 LAB CHEMISTRY METHOD 09/01/2024 7:02 AM [facility] Comment:Calculation based on the Chronic Kidney Disease Epidemiology Collaboration (CKD-EPI) equation refit without adjustment for race. BUN/Creatinine Ratio 16.5 LAB CHEMISTRY METHOD 09/01/2024 7:02 AM [facility] Calcium 9.2 8.5 - 10.5 mg/dL LAB CHEMISTRY METHOD 09/01/2024 7:02 AM T [facility] Blood Venous blood specimen / Unknown Venipuncture / Unknown 09/01/2024 5:54 AM EDT 09/01/2024 6:07 AM EDT us Willam Jovel MD LAB BLOOD ORDERABLES Final Res ult [facility] [address] [place] [address], * Lipid panel with reflex to direct LDL (08/31/2024 8:36 AM EDT) Cholesterol 127 0 - 200 mg/dL LAB CHEMISTRY METHOD 08/31/2024 2:25 PM EDT [facility] Triglycerides 117 0 - 150 mg/dL LAB CHEMISTRY METHOD 08/31/2024 2:25 PM T [facility] HDL 61 >=40 mg/dL LAB CHEMISTRY METHOD 08/31/2024 2:25 PM EDT [facility] LDL Calculated 43 0 - 100 mg/dL LAB CHEMISTRY METHOD 08/31/2024 2:25 PM EDT [facility] VLDL Cholesterol Darren 23.4 mg/dL LAB CHEMISTRY METHOD 08/31/2024 2:25 PM EDT [facility] Non HDL Chol. (LDL+VLDL) 66 <145 mg/dL LAB CHEMISTRY METHOD 08/31/2024 2:25 PM EDT [facility] Chol/HDL Ratio 2.1 0.0 - 4.4 LAB CHEMISTRY METHOD 08/31/2024 2:25 PM EDT [facility] Blood Venous blood specimen / Unknown Venipuncture / Unknown 08/31/2024 8:36 AM EDT 08/31/2024 9:04 AM EDT us Willam Jovel MD LAB BLOOD ORDERABLES Final Res ult [facility] [address] [place] [address], from Last 3 Months or Most Recently Relevant to Health Maintenance Insurance [facility] Member Subscriber Plan / Payer (Ef fective 2022-Present) Name:Andres Weiss Relation to Subscriber:Self Name:Andres Weiss Payer ID:[id number] Group ID:[id number] Type:Not on file Address: [address] [facility] [place] [id number] [facility] MEDICARE Member Subscriber Plan / Payer (Ef fective 2022-Present) Name:Andres Weiss Relation to Subscriber:Self Name:Isela, Chepe Payer ID:[id number] Group ID:[id number] Type:Not on file Address: [address] [place] [id number] Advance Directives * Full Code - Default [...] currently active code status orders. Care Teams Senior Sales Executive Relationship Specialty Start Date End Date Barbara Peterson MD [address] [facility] , [address] [place] [address] Physician Associ D/B/A: [facility] JASEN Perez PCP - General Internal Medicine 08/31/24
== END 2025-01-17 10:43 | disposition home or self-care (01) ==
LOC: HO.ACS 10:12
PROVIDERS: PCP Internal Medicine; Visit Provider Internal Medicine Medical Oncology
DX: Z79.01 Long term (current) use of anticoagulants (principal)

== ENCOUNTER → 2025-01-17 10:12 | Outpatient (BNVA) | payer OTHER, SELFPAY | PROVIDERS: PCP Internal Medicine; Visit Provider Internal Medicine Medical Oncology | DX: Z95.2 Presence of prosthetic heart valve (principal); Z79.01 Long term (current) use of anticoagulants; Z51.81 Encounter for therapeutic drug level monitoring | CPT/HCPCS: 85610; 99211 ==

== ENCOUNTER 2025-01-24 10:54 | Outpatient (REF) | payer OTHER, SELFPAY ==
--- NOTE | ~2025-01-24 | XR_ITS ---
EXAMINATION: XR FOOT 1-2 VIEWS RIGHT HISTORY: M72.2 - Plantar fascial fibromatosis COMPARISON: There are no prior studies available for comparison. FINDINGS: Three views of the right foot are submitted. Osseous mineralization is normal. There is no fracture or dislocation. There is mild to moderate narrowing of the interphalangeal joint of the great toe. There are calcaneal spurs at the plantar aspect and at the insertion of the Achilles tendon. There are vascular calcifications. XR/XR foot RT 2V IMPRESSION: Calcaneal spurs as described. Mild to moderate narrowing of the interphalangeal joint of the great toe. Electronically signed by: Anup Berger MD 01/24/2025 12:17 PM EDT
== END 2025-01-24 10:55 | disposition home or self-care (01) ==
LOC: HO.XRAY 10:54
PROVIDERS: PCP Internal Medicine; Visit Provider Internal Medicine
DX: F11.20 Opioid dependence, uncomplicated (principal); I10 Essential (primary) hypertension; I42.2 Other hypertrophic cardiomyopathy; I48.19 Other persistent atrial fibrillation; E66.01 Morbid (severe) obesity due to excess calories; Z68.41 Body mass index [BMI] 40.0-44.9, adult; C61 Malignant neoplasm of prostate; C77.2 Secondary and unspecified malignant neoplasm of intra-abdominal lymph nodes; M72.2 Plantar fascial fibromatosis; G47.33 Obstructive sleep apnea (adult) (pediatric); K59.03 Drug induced constipation; T40.2X5D Adverse effect of other opioids, subsequent encounter; Z71.3 Dietary counseling and surveillance
CPT/HCPCS: 73620; 96127; 99212

== ENCOUNTER 2025-01-24 10:54 | Outpatient (AMB) | payer OTHER, SELFPAY ==
--- NOTE | 2025-01-24 11:00 | MHC.PC.OV ---
Vital Signs 01/24/25 11:02 Height 6 ft 1 in Weight 318 lb BMI 42.0 BP 150/90 H Blood Pressure Location Lt brachial Position Sitting Respiration 18 Pulse 70 Pulse Source Pulse Oximeter Temp 97.1 F Temp Source Temporal Artery Scan Pulse Oximetry (%) 94 Oxygen Delivery Method Room Air Intake Visit Reasons: 4 month f/u Supervisor Network Control Operators Required: No Accompanied by: Self / Same As Patient Allergies No Known Allergies (No Known Allergies*) Allergy (Verified 01/24/25 11:33) Medication List - Last Reconciled 01/24/25 by Barbara Peterson MD acetaminophen 650 mg PO Q6H PRN atenolol 50 mg PO DAILY atorvastatin 40 mg PO BEDTIME [compression stockings knee-high 20 mmHg] darolutamide (Nubeqa) 300 mg PO BID furosemide 40 mg PO QAM lactulose 15 mL PO DAILY lisinopril 20 mg PO DAILY 90 days oxycodone-acetaminophen 5-325 mg 1 tab PO Q12H PRN 30 days potassium chloride ER (Klor-Con M) 20 mEq PO QAM warfarin 5 mg See Protocol PO DAILY 90 days Tobacco use date assessed: 01/24/25 Fall risk assessment: No Falls in past year Last assessed Fall Risk: 01/24/25 Dental Screening Dental Screen Date: 01/24/25 Did you have a dental visit in the last 12 months?: No Did you have a dental problem in the last 6 months where you did not have access to dental care?: No Was dental information given to patient?: No HPI HPI Comments History of Present Illness Details The patient is a 69-year-old male presenting with management of chronic conditions including hypertension, lumbar degenerative disc disease, and cardiomyopathy. Hypertension has been noted with a current blood pressure reading of 150/90 mmHg. The patient is currently on atenolol and lisinopril for blood pressure management. The patient has a history of lumbar degenerative disc disease, which causes chronic back pain managed with Percocet. The pain is persistent and affects daily activities. Cardiomyopathy is being managed with furosemide and potassium supplementation. The patient has undergone mitral valve replacement surgery in the past. The patient is also dealing with obesity and has expressed interest in weight management options, including potential medication or injections. Obstructive sleep apnea is being managed with CPAP therapy. The patient reports symptoms consistent with plantar fasciitis, characterized by acute pain in the right foot upon waking, which improves with activity. [facility] Medical History (Updated 01/24/25 @ 11:58 by Barbara Peterson MD) Prostate cancer Seroma after procedure Peripheral vascular disease Poor circulation Leg edema Morbid obesity Opiate dependence AXEL (obstructive sleep apnea) Lumbar degenerative disc disease PAF (paroxysmal atrial fibrillation) Essential hypertension History of stroke Paroxysmal atrial flutter Ventricular tachyarrhythmia Hypertrophic cardiomyopathy Surgical History H/O colonoscopy Status post aorto-coronary artery bypass graft Status post mitral valve replacement Status post implantation of mitral valve leaflet clip History of cardiac pacemaker (~03/2014) History of cardiac catheterization Family History Father Diabetes Mother No problems noted. Social History Housing: Apartment Alcohol intake: current Alcohol intake frequency: holidays/special occasions only Alcohol type: hard liquor Patient Tobacco Use Status: Never used Tobacco e-Cigarette/Vaping Use: Never Used Second Hand Smoke Exposure: No service: No Current occupational status: unemployed Cognitive needs: Yes Hearing needs: No Vision needs: Yes Questionnaire PHQ-9 Over the last 2 weeks, how often have you been bothered by any of the following problems? 1. Little interest or pleasure in doing things: not at all 2. Feeling down, depressed, or hopeless: several days 3. Trouble falling or staying asleep, or sleeping too much: not at all 4. Feeling tired or having little energy: not at all 5. Poor appetite or overeating: not at all 6. Feeling bad about yourself - or that you are a failure or have let yourself or your family down: not at all 7. Trouble concentrating on things, such as reading the newspaper or watching television: not at all 8. Moving or speaking so slowly that other people could have noticed. Or the opposite - being so fidgety or restless that you have been moving around a lot more than usual: not at all 9. Thoughts that you would be better off or of hurting yourself in some way: not at all Total score: 1 Depression Screening Interpretation: Negative Depression Screening Done: Yes 44219 - PHQ-9 Billing: Yes Source: Developed by Hilda Cannon Kurt Kroenke and colleagues, with an educational yumi from [employer]. Thrive Questionnaire Date Thrive assessed: 07/02/24 I am a: Patient What is your living situation today?: I have a steady place to live Within the past 12 months, did the food you bought not last and you didn't have the money to get more?: Never true Within the past 12 months, did you worry whether your food would run out before you got money to buy more?: Never true Do you have trouble paying for medicines?: No Do you have trouble getting transportation to medical appointments?: Yes Do you have trouble paying your heating and electricity bill?: No Do you have trouble taking care of your child, family member or friend?: No Do you have trouble with day-to-day activities such as bathing, preparing meals, shopping, managing finances, etc.?: No Are you currently unemployed and looking for a job?: No Are you interested in more education?: No Please select the resources that you would like help with: None Currently or been in a relationship where the following occur: No concerns reported THRIVE Score: 1 AUDIT C Alcohol Use Questionnaire (AUDIT-C) 1. How often do you have a drink containing alcohol?: Never 3. How often do you have six or more drinks on one occasion?: Never Total Score: 0 Score Reviewed/Action Taken: No JOAQUIM-7 AMB Questionnaire JOAQUIM-7 Date JOAQUIM - 7 assessed: 07/02/24 Feeling nervous, anxious, or on edge: 0 = Not at all Not being able to stop or control worryin = Not at all Worrying too much about different things: 0 = Not at all Trouble relaxin = Not at all Being so restless that it is hard to sit still: 0 = Not at all Becoming easily annoyed or irritable: 0 = Not at all Feeling afraid as if something awful might happen: 0 = Not at all Total JOAQUIM-7 score (0-4 normal; 5-9 mild; 10-14 moderate; 15-21 severe): 0 Source: Developed by Hilda Cannon Kurt Kroenke and colleagues, with an educational yumi from [employer]. JOAQUIM-7 Assessment Billing JOAQUIM-7 Assessment Tool: JOAQUIM-7 Assessment 48378 Review of Systems Const All systems reviewed & are unremarkable except as noted in HPI and below Card Denies chest pain at rest, Denies chest pain with activity, Denies edema, Denies irregular heart rhythm, Denies claudication, Denies dyspnea, Denies dyspnea on exertion, Denies orthopnea, Denies paroxysmal nocturnal dyspnea and Denies slow heart rate Resp Denies cough, Denies dyspnea and Denies dyspnea on exertion Physical exam (Primary Care) Vital Signs: Last Vital Signs Temp 97.1 F 01/24/25 11:02 Pulse 70 01/24/25 11:02 Resp 18 01/24/25 11:02 BP 150/90 H 01/24/25 11:02 Pulse Ox 94 01/24/25 11:02 Oxygen Delivery Method Room Air 01/24/25 11:02 BMI result Body Mass Index 42.0 BMI Assessment/Plan discussion: High BMI High, discussed plan: lifestyle, weight reduction, dietary and physical activity Tobacco/Smoking Status: Tobacco use Status Tobacco use date assessed 01/24/25 01/24/25 11:03 Patient Tobacco Use Status Never used Tobacco 01/24/25 11:03 e-Cigarette/Vaping Use Never Used 01/24/25 11:03 PHQ-9: PHQ-9 Score PHQ-9: Total score 1 01/24/25 11:27 Depression Screening Interpretation: Negative Thrive Assessment: Date of Thrive Assessment Date Thrive assessed 07/02/24 01/24/25 11:03 Currently or been in a relationship where the following occur: No concerns reported Resp Effort & Inspection: normal respiratory effort Auscultation: clear to auscultation bilaterally Cardio Jugular venous distension: no JVD Rate: regular rate Rhythm: regular rhythm Heart sounds: S1 normal heart sound present and S2 normal heart sound present Extrem General: Yes full ROM Coding Level of Care Code Est Pt Level 4 (64835) Complex EM visit Add On G2211 Diagnoses Uncomplicated opioid dependence F11.20 Substance use status: uncomplicated Essential hypertension I10 Hypertrophic cardiomyopathy I42.2 Persistent atrial fibrillation I48.19 Morbid obesity E66.01 Prostate cancer metastatic to intraabdominal lymph node C61; C77.2 Plantar fasciitis of right foot M72.2 AXEL (obstructive sleep apnea) G47.33 Opioid-induced constipation K59.03; T40.2X5A Additional Codes PHQ-9 - 67222 - PHQ-9 Billing: Yes ([id number]) JOAQUIM-7 Assessment Billing - JOAQUIM-7 Assessment Tool: JOAQUIM-7 Assessment 43551 ([id number]) Time Spent (min) 25 Assessment & Plan Assessment & Plan (1) Opiate dependence: Code(s): F11.20 - Opioid dependence, uncomplicated Category: Medical Qualifiers: Substance use status: uncomplicated Qualified Code(s): F11.20 - Opioid dependence, uncomplicated (2) Essential hypertension: Code(s): I10 - Essential (primary) hypertension Category: Medical (3) Hypertrophic cardiomyopathy: Code(s): I42.2 - Other hypertrophic cardiomyopathy Category: Medical (4) Persistent atrial fibrillation: Code(s): I48.19 - Other persistent atrial fibrillation Category: Medical (5) Morbid obesity: Comment: The patient is relatively inactive. He does have gross obesity. He does say that he walks about half to 1 hour every day. But weight has gone up by a few lb. He say is that he is working with a dietitian. Code(s): E66.01 - Morbid (severe) obesity due to excess calories Category: Medical (6) Prostate cancer metastatic to intraabdominal lymph node: Code(s): C61 - Malignant neoplasm of prostate; C77.2 - Secondary and unspecified malignant neoplasm of intra-abdominal lymph nodes Category: Medical (7) Plantar fasciitis of right foot: Code(s): M72.2 - Plantar fascial fibromatosis Category: Medical (8) AXEL (obstructive sleep apnea): Comment: He does have severe obstructive Sleep apnea He is very very compliant and benefits from the use of CPAP. His sleep quality is much better. Code(s): G47.33 - Obstructive sleep apnea (adult) (pediatric) Category: Medical (9) Opioid-induced constipation: Code(s): K59.03 - Drug induced constipation; T40.2X5A - Adverse effect of other opioids, initial encounter Category: Medical Plan Plan Patient was informed and verbally consented to the use of an ambient scribe for clinic note documentation during this visit. 1. Essential Hypertension The patient's blood pressure is currently elevated at 150/90 mmHg. A follow-up blood pressure check is scheduled in three weeks with the nurse. 2. Lumbar Degenerative Disc Disease The patient experiences chronic back pain managed with Percocet. 3. Cardiomyopathy The condition is managed with furosemide and potassium supplementation. 4. Obesity The patient is interested in weight management options, including potential medication or injections, pending insurance approval. 5. Obstructive Sleep Apnea The patient uses CPAP therapy for management. 6. Plantar Fasciitis The patient reports acute pain in the right foot upon waking, which improves with activity. A foot X-ray has been ordered to further evaluate the condition. Orders: Orders XR foot RT 2V Today M72.2 - Plantar fascial fibromatosis Medications: Refilled lactulose 15 mL PO DAILY 450 mL 0RF
[2025-01-24 11:02] VITALS: BP 150/90; PULSE 70; RESP 18; TEMP 36.2; O2SAT 94; BMI 42.0
--- OUTSIDE RECORDS SUMMARY | 2025-01-24 12:39 | XMS_ITS | Encounter Summary ---
Author Organization [facility] Address [address] [place] [address] Care Team Providers Care Evp Global Product Leadership Name Role Phone Barbara Valdivia MD Primary Care Provider [phone] Young Ramirez MD Unavailable [phone] Reason for Visit * Reason Comments Med Refill Encounter Details Date Type Department Care Team (Late st Contact Info) Description 12/16/2022 Refill [facility] [address] [place] [phone] Tunde Urias, [place] [address] [facility] [address] [place] [address] Severe mitral regurgitation Social History Tobacco Use [...] regurgitation documented in this encounter Care Teams Evp Global Product Leadership Relationship Specialty Start Date End Date Barbara Valdivia MD [address] [place] [address] PCP - General 06/04/21 Young Ramirez MD [address] 3rd [place] [address] Railroad Signal Operator Cardiology 12/21/21 documented as of this encounter
--- OUTSIDE RECORDS SUMMARY | 2025-01-24 12:39 | XMS_ITS | Encounter Summary ---
Author Organization [facility] Address [address] [facility] [address] [place] [address] Care Team Providers Care Contract Analyst Name Role Phone Barbara Valdivia MD Primary Care Provider [phone] Young Ramirez MD Unavailable [phone] Reason for Visit * Reason Comments Med Refill Encounter Details Date Type Department Care Team (Late st Contact Info) Description 06/21/2022 Refill [facility] Medical Surgical Unit [address] [place] [phone] Tunde Urias, [place] [address] [facility] [address] [place] [address] Severe mitral regurgitation Social History Tobacco Use [...] regurgitation documented in this encounter Care Teams Contract Analyst Relationship Specialty Start Date End Date Barbara Valdivia MD [address] [place] [address] PCP - General 06/04/21 Young Ramirez MD [address] 3rd [place] [address] [employer] Thread Winder Cardiology 12/21/21 documented as of this encounter
--- OUTSIDE RECORDS SUMMARY | 2025-01-24 12:39 | XMS_ITS | Encounter Summary ---
Author Organization [facility] Address [address] [facility] [address] [place] [address] Care Team Providers Care Kiln Tender Name Role Phone Barbara Valdivia MD Primary Care Provider [phone] Young Ramirez MD Unavailable [phone] Reason for Visit * Reason Comments Med Refill Encounter Details Date Type Department Care Team (Late st Contact Info) Description 12/19/2022 Refill [facility] Medical Surgical Unit [address] [place] [phone] Tunde Urias, FLAC[place] [address] [facility] [address] [place] [address] Severe mitral regurgitation Social History Tobacco Use [...] regurgitation documented in this encounter Care Teams Kiln Tender Relationship Specialty Start Date End Date Barbara Valdivia MD [address] [place] [address] PCP - General 06/04/21 Young Ramirez MD [address] [place] [address] Configuration Manager Cardiology 12/21/21 documented as of this encounter
--- OUTSIDE RECORDS SUMMARY | 2025-01-24 12:39 | XMS_ITS | Encounter Summary ---
Author Organization [facility] Address [address] [facility] [address] [place] [address] Care Team Providers Care Cotton Cleaner Name Role Phone Barbara Valdivia MD Primary Care Provider [phone] Young Ramirez MD Unavailable [phone] Reason for Visit * Reason Comments Med Refill Encounter Details Date Type Department Care Team (Late st Contact Info) Description 06/20/2023 Refill [facility] Medical Surgical Unit [address] [place] [phone] Tunde Urias, FLACO [address] [facility] [address] [place] [address] Severe mitral regurgitation Social History Tobacco Use [...] regurgitation documented in this encounter Care Teams Cotton Cleaner Relationship Specialty Start Date End Date Barbara Valdivia MD [address] [place] [address] PCP - General 06/04/21 Young Ramirez MD [address]rd [place] [address] Administrative Assistant Receptionist Cardiology 12/21/21 documented as of this encounter
--- OUTSIDE RECORDS SUMMARY | 2025-01-24 12:39 | XMS_ITS | Encounter Summary ---
Author Organization [facility] Address [address] [facility] [address] [place] [address] Care Team Providers Care Band Booker Name Role Phone Barbara Valdivia MD Primary Care Provider [phone] Young Ramirez MD Unavailable [phone] Reason for Visit * Reason Comments Med Refill Encounter Details Date Type Department Care Team (Late st Contact Info) Description 01/21/2022 Refill [facility] Medical Surgical Unit [address] [place] [phone] Tunde Urias, [place] [address] [facility] [address] [place] [address] Severe mitral regurgitation Social History Tobacco Use [...] regurgitation documented in this encounter Care Teams Band Booker Relationship Specialty Start Date End Date Barbara Valdivia MD [address] [place] [address] PCP - General 06/04/21 Young Ramirez MD [address] [place] [address] Utility Tender Carding Cardiology 12/21/21 documented as of this encounter
--- OUTSIDE RECORDS SUMMARY | 2025-01-24 12:39 | XMS_ITS | Clinical Summary ---
Author Organization [facility] Address [address] [place] [address] Phone Care Team Providers Care Parking Technician Name Role Phone Barbara Peterson MD Primary Care Provider [phone] Allergies No known active allergies Medications atenoloL [...] LAB CHEMISTRY METHOD 09/01/2024 7:02 AM EDT [facility] BUN 15 5 - 25 mg/dL LAB CHEMISTRY METHOD 09/01/2024 7:02 AM [facility] Creatinine 0.91 0.70 - 1.30 mg/dL LAB CHEMISTRY METHOD 09/01/2024 7:02 AM EDT [facility] eGFR 92 >=60 mL/min/1. 73m2 LAB CHEMISTRY METHOD 09/01/2024 7:02 AM [facility] Comment:Calculation based on the Chronic Kidney Disease Epidemiology Collaboration (CKD-EPI) equation refit without adjustment for race. BUN/Creatinine Ratio 16.5 LAB CHEMISTRY METHOD 09/01/2024 7:02 AM [facility] Calcium 9.2 8.5 - 10.5 mg/dL LAB CHEMISTRY METHOD 09/01/2024 7:02 AM T [facility] Blood Venous blood specimen / Unknown Venipuncture / Unknown 09/01/2024 5:54 AM EDT 09/01/2024 6:07 AM EDT us Willam Jovel MD LAB BLOOD ORDERABLES Final Res ult [facility] [address] [place] [address], * Lipid panel with reflex to direct LDL (08/31/2024 8:36 AM EDT) Cholesterol 127 0 - 200 mg/dL LAB CHEMISTRY METHOD 08/31/2024 2:25 PM EDT [facility] Triglycerides 117 0 - 150 mg/dL LAB CHEMISTRY METHOD 08/31/2024 2:25 PM T [facility] HDL 61 >=40 mg/dL LAB CHEMISTRY METHOD 08/31/2024 2:25 PM EDT [facility] LDL Calculated 43 0 - 100 mg/dL LAB CHEMISTRY METHOD 08/31/2024 2:25 PM EDT [facility] VLDL Cholesterol Darren 23.4 mg/dL LAB CHEMISTRY METHOD 08/31/2024 2:25 PM EDT [facility] Non HDL Chol. (LDL+VLDL) 66 <145 mg/dL LAB CHEMISTRY METHOD 08/31/2024 2:25 PM EDT [facility] Chol/HDL Ratio 2.1 0.0 - 4.4 LAB CHEMISTRY METHOD 08/31/2024 2:25 PM EDT [facility] Blood Venous blood specimen / Unknown Venipuncture / Unknown 08/31/2024 8:36 AM EDT 08/31/2024 9:04 AM EDT us Willam Jovel MD LAB BLOOD ORDERABLES Final Res ult [facility] [address] [place] [address], from Last 3 Months or Most Recently Relevant to Health Maintenance Insurance [facility] Member Subscriber Plan / Payer (Ef fective 2022-Present) Name:Andres Weiss Relation to Subscriber:Self Name:Andres Weiss Payer ID:[id number] Group ID:[id number] Type:Not on file Address: [facility] [place] [address] [facility] MEDICARE Member Subscriber Plan / Payer (Ef fective 2022-Present) Name:Andres Weiss Relation to Subscriber:Self Name:Isela, Chepe Payer ID:[id number] Group ID:[id number] Type:Not on file Address: [address] [place] [address] Advance Directives * Full Code - Default [...] currently active code status orders. Care Teams Parking Technician Relationship Specialty Start Date End Date Barbara Peterson MD [address] [facility] , [address] [place] [address] Physician Associ D/B/A: [facility] JASEN Perez PCP - General Internal Medicine 08/31/24
--- OUTSIDE RECORDS SUMMARY | 2025-01-24 12:39 | XMS_ITS | Clinical Summary ---
Author Organization [facility] Address [address] [facility] [place] [address] Care Team Providers Care Telephone Answering Service Operator Name Role Phone Barbara Valdivia MD Primary Care Provider [phone] Young Ramirez MD Unavailable [phone] Allergies No known active allergies Medications finasteride [...] Problem Noted Date Diagnosed Date Heart failure 12/14/2021 Severe mitral regurgitation 09/21/2021 Atrial fibrillation 09/21/2021 Hypertrophic cardiomyopathy 09/21/2021 ICD (implantable cardioverter-defibrillator) in place 09/21/2021 Hypertension 09/21/2021 Asthma 09/21/2021 Impaired tolerance of activity Decreased functional [...] this topic Medical Devices Implanted Type Area Athletic Coordinator Device Identifier Shelf Expiration Date Model / Serial / Lot Fiberglass Model Maker-D Icd HUMAN DEVELOPMENT PROFESSOR-D ICD Left: Chest [employer] Unknown [id number] Cardiac Pacemaker [employer] UNKNOWN / [id number] / Band Tri-Ad 2.0 Harper 34mm - [id number] - [id number] Implanted:Qty : 1 on 12/21/2021 by hCeo Cannon MD at [facility] Heart Valve Repair N/A: Chest [employer] PACING 01/25/2026 [id number] / [id number] / Device Ck Cor Knot - Sna - [id number] Implanted:Qty : 1 on 12/21/2021 by Cheo Cannon MD at [facility] Implant N/A: Chest [employer] 08/23/2023 [id number] / NA / Valve On-X Mitral 31/33mm W/St - [id number] - [id number] Implanted:Qty : 1 on 12/21/2021 by Cheo Cannon MD at [facility] Prosthetic Valve N/A: Heart [employer] 05/10/2027 ONXM-31/33 / [id number] / Patch Photofix 0.8x8cm - Sna - [id number] Implanted:Qty : 1 on 12/21/2021 by Cheo Cannon MD at [facility] Vascular Graft N/A: Aorta [employer] 07/25/2023 [id number] / NA / [id number] Procedures Procedure Name Priority Date/Time Associated Diagnosis [...] x 1, stool (12/31/2021 11:03 AM EDT) [facility] Date I MANUAL METHOD 12/31/2021 11:37 AM EDT [facility] Occult Blood Stool I Positive( A) Negative, No Sample Received MANUAL METHOD 12/31/2021 11:37 AM EDT [facility] Stool Rectal contents / Unknown Non-blood Collection / Unknown 12/31/2021 11:03 AM EDT 12/31/2021 11:07 AM EDT Cheo Cannon MD LAB BODY FLUIDS AND STOOLS ORDERABLES Final Result Performing Organization Address City/[facility]/ZIP Co de Phone Number [facility] [address] [place] [address], [place] * Hepatitis C antibody (12/29/2021 6:39 AM EDT) [facility] Hepatitis C antibody Non Reactive Non Reactive [facility] ARCH I2000 3 12/29/2021 10:58 AM EDT [facility] Comment:Antibodies to HCV no t detected; does not exclude the possibility of exposure to HCV. Blood Venous blood specimen / Unknown Venipuncture / Unknown 12/29/2021 6:39 AM EDT 12/29/2021 6:39 AM EDT Narrative [facility] - 12/29/2021 10:58 AM EDT The positive predictive value of this antibody test varies with the prevalence of Hepatitis C virus. Clinical confirmation of Hepatitis C using a qualitative Hepatitis C RNA determination may be indicated. [facility] LAB BLOOD ORDERABLES Final Re sult [facility] [address] [place] [address], [place] * Glucose, random (12/26/2021 4:19 AM EDT) [facility] Glucose 100 70 - 139 mg/dL 12/26/2021 5:30 AM EDT [facility] Fasting? Unknown 12/26/2021 5:30 AM EDT [facility] Blood Venous blood specimen / Unknown Venipuncture / Unknown 12/26/2021 4:19 AM EDT 12/26/2021 4:36 AM EDT us Cheo Cannon MD LAB BLOOD ORDERABLES Final Result Performing Organization Address [facility]/ZIP Co de Phone Number [facility] [address] [place] [address], * Lipid panel (12/15/2021 4:25 AM EDT) Triglycerides 62 <=150 mg/dL 12/15/2021 2:09 PM EDT [facility] Cholesterol 123 <=200 mg/dL 12/15/2021 2:09 PM EDT [facility] HDL cholesterol 42 >=40 mg/dL 2:09 PM EDT [facility] LDL cholesterol, calculated 69 0 - 130 mg/dL 12/15/2021 2:09 PM EDT [facility] Cholesterol/HDL Ratio 2.9 12/15/2021 2:09 PM EDT [facility] Blood Venous blood specimen / Unknown Venipuncture / Unknown 12/15/2021 4:25 AM EDT 12/15/2021 5:31 AM EDT us Pritesh Salinas MD LAB BLOOD ORDERABLES Final Re sult Performing Organization Address [facility] Co de Phone Number [facility] [address] [place] [address], from Last 3 Months or Most Recently Relevant to Health Maintenance Insurance MEDICARE PART A AND B MEDICAID STANDARD [facility] OPTIONS Advance Directives Documents on File Type Date Recorded Patient Windows System Admin Expl anation Health Care Proxy 06/27/2021 8:07 AM Conve [facility] Healthcare Proxy ([facility] Soarian DM) Health Care Proxy 06/18/2021 3:10 PM Conve [facility] Healthcare Proxy ([facility] So[facility] DM) Advance Directives and Living Will 12/16/2021 Health Care Proxy * Full Code (Latest Code Status on File) Date Activated Date Inactivated Comments 12/21/2021 9:39 PM 01/01/2022 4:30 PM * Full Code Date Activated Date Inactivated Comments 12/14/2021 6:44 PM 12/21/2021 9:39 PM Care Teams Telephone Answering Service Operator Relationship Specialty Start Date End Date Barbara Valdivia MD [address] [place] [address] PCP - General 06/04/21 Young Ramirez MD [address] [place] [address] Rubber Cutter Cardiology 12/21/21
== END 2025-01-24 11:48 | disposition home or self-care (01) ==
LOC: HO.HMCH 10:55
PROVIDERS: PCP Internal Medicine; Visit Provider Internal Medicine
DX: I42.2 Other hypertrophic cardiomyopathy (principal); F11.20 Opioid dependence, uncomplicated; Z68.41 Body mass index [BMI] 40.0-44.9, adult; E66.01 Morbid (severe) obesity due to excess calories; I48.19 Other persistent atrial fibrillation; C61 Malignant neoplasm of prostate; C77.2 Secondary and unspecified malignant neoplasm of intra-abdominal lymph nodes; I10 Essential (primary) hypertension; M72.2 Plantar fascial fibromatosis; G47.33 Obstructive sleep apnea (adult) (pediatric); K59.03 Drug induced constipation; T40.2X5A Adverse effect of other opioids, initial encounter

== ENCOUNTER → 2025-01-24 12:01 | Outpatient (BNV) | payer OTHER, SELFPAY | PROVIDERS: PCP Internal Medicine; Visit Provider Radiology Diagnostic Radiology | DX: M77.31 Calcaneal spur, right foot (principal) | CPT/HCPCS: 73620 ==

== ENCOUNTER 2025-01-31 10:07 | Outpatient (AMB) | payer OTHER, SELFPAY ==
[2025-01-31 10:45] LABS: Prothrombin Time Whole Bld POC 26.9 sec (11.1-13.5); ~PT, ~INR - Anti Coag Clinic 2.2 (0.9-1.1)
--- NOTE | 2025-01-31 10:54 | MHC.OFFVISCO ---
Intake Intake Visit Reasons: Anticoagulation Allergies No Known Allergies (No Known Allergies*) Allergy (Verified 01/31/25 10:37) Medication List - Last Reconciled 01/31/25 by Hanna Magaña RN acetaminophen 650 mg PO Q6H PRN atenolol 50 mg PO DAILY atorvastatin 40 mg PO BEDTIME [compression stockings knee-high 20 mmHg] darolutamide (Nubeqa) 300 mg PO BID furosemide 40 mg PO QAM lactulose 15 mL PO DAILY lisinopril 20 mg PO DAILY 90 days oxycodone-acetaminophen 5-325 mg 1 tab PO Q12H PRN 30 days potassium chloride ER (Klor-Con M) 20 mEq PO QAM tirzepatide (weight loss) (Zepbound) 2.5 mg (0.5 mL) subcut QWEEK 4 weeks warfarin 5 mg See Protocol PO DAILY 90 days Nursing Note INR: 2.2 OUT therapeutic range 2.5-3.5 Medications and supplements reviewed *pt may have eaten more greens than usual for previous elevated INR, Denies any signs and symptoms of bleeding or bruising or clotting. Bleeding, bruising, clotting discussed Nutritional guidance given - avoid greens x 3 days. eat orange and res to help keep INR Dose: keep 5mg daily F/U INR: 2 weeks Patient verbalizes understanding of instructions given Anti-Coag Initial Assessment Social Hx Patient Tobacco Use Status: Never used Tobacco alcohol intake: current Alcohol intake frequency: holidays/special occasions only Cardiovascular Hx: HTN, Arrhythmias and Cardiomyopathy Musculoskeletal Hx: Other Blood Disorder Hx: Hyperlipidemia Hx: Prostate Neurological Hx: Stroke/TIA Cancer HX: Yes (prostate) Psych. Illness/Depression: No Questionnaires HAS-BLED Does the patient had uncontrolled Hypertension?: No Does the patient have renal disease?: No Does the patient have liver disease?: No Does the patient have a history of stroke?: Yes Has the patient had major bleeding or predisposition to bleeding?: Yes (hx if GI bleed in the past ) Does the patient have labile INRs?: Yes Is the patient over 65 years of age?: Yes Is the patient on medications that gives them a predisposition to bleeding?: Yes Does the patient use alcohol?: No HAS-BLED Score: 5 CHADSVASC Age: 66-74 Gender: Male Does the patient have a history of CHF?: No Does the patient have a history of Hypertension?: Yes Does the patient have a history of Stroke/TIA/Thromboembolism?: Yes Does the patient have a history of Vascular Disease (prior OK, PAD or aortic plaque)?: Yes Does the patient have a history of Diabetes?: No CHADS VACS Score: 5 Devan Prediction Score Rsk VTE Active Cancer: Yes Previous VTE, excluding superficial vein thrombosis: No Reduced mobility: No Already known Thrombophilic Condition: No With-in last month Trauma and/or Surgery: No Elderly 70 year or older: No Heart and/or Respiratory Failure: No Acute Myocardial infarction and/or Ischemic Stroke: Yes Acute Infection and/or Rheumatologic Disorder: No Obesity (BMI 30 or greater): Yes Ongoing Hormonal Treatment: No Score: 5 Devan Score less than 4; Low Risk of VTE Devan Score 4 or greater; High Risk of VTE Coding Level of Care Code Est Patient Level 1 Diagnoses Current use of anticoagulant therapy Z79.01 Assessment & Plan Assessment & Plan (1) Current use of anticoagulant therapy: Code(s): Z79.01 - longterm (current) use of anticoagulants Category: Medical
--- OUTSIDE RECORDS SUMMARY | 2025-01-31 10:56 | XMS_ITS | Encounter Summary ---
Author Organization [facility] Address [address] [facility] [address] [place] [address] Care Team Providers Care Utility Systems Repairer Operator Name Role Phone Barbara Valdivia MD Primary Care Provider [phone] Young Ramirez MD Unavailable [phone] Reason for Visit * Reason Comments Med Refill Encounter Details Date Type Department Care Team (Late st Contact Info) Description 12/16/2022 Refill [facility] Medical Surgical Unit [address] [place] [phone] Tunde Urias, FLACO [address] [facility] [address] [place] [address] Severe mitral regurgitation Social History Tobacco Use [...] regurgitation documented in this encounter Care Teams Utility Systems Repairer Operator Relationship Specialty Start Date End Date Barbara Valdivia MD [address] [place] [address] PCP - General 06/04/21 Young Ramirez MD [address]rd [place] [address] Navy Material Inspector Cardiology 12/21/21 documented as of this encounter
--- OUTSIDE RECORDS SUMMARY | 2025-01-31 10:56 | XMS_ITS | Encounter Summary ---
Author Organization [facility] Address [address] [facility] [address] [place] [address] Care Team Providers Care Broaching Machine Repairer Name Role Phone Barbara Valdivia MD Primary Care Provider [phone] Young Ramirez MD Unavailable [phone] Reason for Visit * Reason Comments Med Refill Encounter Details Date Type Department Care Team (Late st Contact Info) Description 06/20/2023 Refill [facility] Medical Surgical Unit [address] [place] [phone] Tunde Urias, FLACO [address] [facility] [address] [place] [address] Severe mitral regurgitation Social History Tobacco Use [...] regurgitation documented in this encounter Care Teams Broaching Machine Repairer Relationship Specialty Start Date End Date Barbara Valdivia MD [address] [place] [address] PCP - General 06/04/21 Young Ramirez MD [address]rd [place] [address] Veterinary Technician Cardiology 12/21/21 documented as of this encounter
--- OUTSIDE RECORDS SUMMARY | 2025-01-31 10:56 | XMS_ITS | Clinical Summary ---
Author Organization [facility] Address [address] [facility] [place] [address] Care Team Providers Care Manager Occupational Name Role Phone Barbara Valdivia MD Primary Care Provider [phone] Young Ramirez MD Unavailable [phone] Allergies No known active allergies Medications finasteride [...] this topic Medical Devices Implanted Type Area Building Code Administrator Device Identifier Shelf Expiration Date Model / Serial / Lot Captain/Airline Pilot-D Icd FOUNDRY MANAGER-D ICD Left: Chest [employer] Unknown [id number] Cardiac Pacemaker [employer] UNKNOWN / [id number] / Band Tri-Ad 2.0 Harper 34mm - [id number] - [id number] Implanted:Qty : 1 on 12/21/2021 by Cheo Cannon MD at [facility] Heart Valve Repair N/A: Chest [employer] PACING 01/25/2026 [id number] / [id number] / Device Ck Cor Knot - Sna - [id number] Implanted:Qty : 1 on 12/21/2021 by Cheo Cannon MD at [facility] Implant N/A: Chest [employer] 08/23/2023 [id number] / NA / Valve On-X Mitral 31/33mm W/St - [id number] - [id number] Implanted:Qty : 1 on 12/21/2021 by Cheo Cannon MD at [facility] Prosthetic Valve N/A: Heart [employer] 05/10/2027 ONXM-31/33 / [id number] / Patch Photofix 0.8x8cm - Sna - [id number] Implanted:Qty : 1 on 12/21/2021 by Cheo Cannon MD at [facility] Vascular Graft N/A: Aorta [employer] 07/25/2023 PFP0.8X8 / NA / [id number] Procedures Procedure Name Priority Date/Time Associated Diagnosis [...] x 1, stool (12/31/2021 11:03 AM EDT) [facility] Date I MANUAL METHOD 12/31/2021 11:37 AM EDT [facility] Occult Blood Stool I Positive( A) Negative, No Sample Received MANUAL METHOD 12/31/2021 11:37 AM EDT [facility] Stool Rectal contents / Unknown Non-blood Collection / Unknown 12/31/2021 11:03 AM EDT 12/31/2021 11:07 AM EDT Cheo Cannon MD LAB BODY FLUIDS AND STOOLS ORDERABLES Final Result Performing Organization Address City/[facility]/ZIP Co de Phone Number [facility] [address] [place] [address], [place] * Hepatitis C antibody (12/29/2021 6:39 AM EDT) [facility] Hepatitis C antibody Non Reactive Non Reactive [facility] ARCH I2000 3 12/29/2021 10:58 AM EDT [facility] Comment:Antibodies to HCV no t detected; does not exclude the possibility of exposure to HCV. Blood Venous blood specimen / Unknown Venipuncture / Unknown 12/29/2021 6:39 AM EDT 12/29/2021 6:39 AM EDT Narrative [facility] - 12/29/2021 10:58 AM EDT The positive predictive value of this antibody test varies with the prevalence of Hepatitis C virus. Clinical confirmation of Hepatitis C using a qualitative Hepatitis C RNA determination may be indicated. [facility] LAB BLOOD ORDERABLES Final Re sult [facility] [address] [place] [address], [place] * Glucose, random (12/26/2021 4:19 AM EDT) [facility] Glucose 100 70 - 139 mg/dL 12/26/2021 5:30 AM EDT [facility] Fasting? Unknown 12/26/2021 5:30 AM EDT [facility] Blood Venous blood specimen / Unknown Venipuncture / Unknown 12/26/2021 4:19 AM EDT 12/26/2021 4:36 AM EDT us Cheo Cannon MD LAB BLOOD ORDERABLES Final Result Performing Organization Address City/[facility]/ZIP Co de Phone Number [facility] [address] [place] [address], * Lipid panel (12/15/2021 4:25 AM EDT) Triglycerides 62 <=150 mg/dL 12/15/2021 2:09 PM EDT [facility] Cholesterol 123 <=200 mg/dL 12/15/2021 2:09 PM EDT [facility] HDL cholesterol 42 >=40 mg/dL 2:09 PM EDT [facility] LDL cholesterol, calculated 69 0 - 130 mg/dL 12/15/2021 2:09 PM EDT [facility] Cholesterol/HDL Ratio 2.9 12/15/2021 2:09 PM EDT [facility] Blood Venous blood specimen / Unknown Venipuncture / Unknown 12/15/2021 4:25 AM EDT 12/15/2021 5:31 AM EDT us Pritesh Salinas MD LAB BLOOD ORDERABLES Final Re sult Performing Organization Address [facility] Co de Phone Number [facility] [address] [place] [address], from Last 3 Months or Most Recently Relevant to Health Maintenance Insurance MEDICARE PART A AND B MEDICAID STANDARD [facility] OPTIONS Advance Directives Documents on File Type Date Recorded Patient Director Medical Affairs Expl anation Health Care Proxy 06/27/2021 8:07 AM Conve [facility] Healthcare Proxy ([facility] Soarian DM) Health Care Proxy 06/18/2021 3:10 PM Conve [facility] Healthcare Proxy ([facility] Soarian DM) Advance Directives and Living Will 12/16/2021 Health Care Proxy * Full Code (Latest Code Status on File) Date Activated Date Inactivated Comments 12/21/2021 9:39 PM 01/01/2022 4:30 PM * Full Code Date Activated Date Inactivated Comments 12/14/2021 6:44 PM 12/21/2021 9:39 PM Care Teams Manager Occupational Relationship Specialty Start Date End Date Barbara Valdivia MD [address] [place] [address] PCP - General 06/04/21 Young Ramirez MD [address] [place] [address] Compact Assembler Cardiology 12/21/21
--- OUTSIDE RECORDS SUMMARY | 2025-01-31 10:56 | XMS_ITS | Encounter Summary ---
Author Organization [facility] Address [address] [facility] [address] [place] [address] Care Team Providers Care Program Professional Name Role Phone Barbara Valdivia MD Primary Care Provider [phone] Young Ramirez MD Unavailable [phone] Reason for Visit * Reason Comments Med Refill Encounter Details Date Type Department Care Team (Late st Contact Info) Description 12/19/2022 Refill [facility] Medical Surgical Unit [address] [place] [phone] Tunde Urias, FLACO [address] [facility] [address] [place] [address] Severe mitral regurgitation Social History Tobacco Use [...] regurgitation documented in this encounter Care Teams Program Professional Relationship Specialty Start Date End Date Barbara Valdivia MD [address] [place] [address] PCP - General 06/04/21 Young Ramirez MD [address]rd [place] [address] Home Aide Cardiology 12/21/21 documented as of this encounter
--- OUTSIDE RECORDS SUMMARY | 2025-01-31 10:56 | XMS_ITS | Encounter Summary ---
Author Organization [facility] Address [address] [facility] [address] [place] [address] Care Team Providers Care Crankshaft Straightener Name Role Phone Barbara Valdivia MD Primary Care Provider [phone] Young Ramirez MD Unavailable [phone] Reason for Visit * Reason Comments Med Refill Encounter Details Date Type Department Care Team (Late st Contact Info) Description 06/21/2022 Refill [facility] Medical Surgical Unit [address] [place] [phone] Tunde Urias, FLACO [address] [facility] [address] [place] [address] Severe mitral regurgitation Social History Tobacco Use [...] regurgitation documented in this encounter Care Teams Crankshaft Straightener Relationship Specialty Start Date End Date Barbara Valdivia MD [address] [place] [address] PCP - General 06/04/21 Young Ramirez MD [address]rd [place] [address] Bench Manager Cardiology 12/21/21 documented as of this encounter
--- OUTSIDE RECORDS SUMMARY | 2025-01-31 10:56 | XMS_ITS | Encounter Summary ---
Author Organization [facility] Address [address] [facility] [address] [place] [address] Care Team Providers Care Senior Policy Advisor Name Role Phone Barbara Valdivia MD Primary Care Provider [phone] Young Ramirez MD Unavailable [phone] Reason for Visit * Reason Comments Med Refill Encounter Details Date Type Department Care Team (Late st Contact Info) Description 01/21/2022 Refill [facility] Medical Surgical Unit [address] [place] [phone] Tunde Urias, FLACO [address] [facility] [address] [place] [address] Severe mitral regurgitation Social History Tobacco Use [...] regurgitation documented in this encounter Care Teams Senior Policy Advisor Relationship Specialty Start Date End Date Barbara Valdivia MD [address] [place] [address] PCP - General 06/04/21 Young Ramirez MD [address]rd [place] [address] Magnetic Resonance Imaging Director Cardiology 12/21/21 documented as of this encounter
--- OUTSIDE RECORDS SUMMARY | 2025-01-31 10:57 | XMS_ITS | Clinical Summary ---
Author Organization [facility] Address [address] [place] [address] Phone Care Team Providers Care Wine Pasteurizer Name Role Phone Barbara Peterson MD Primary Care Provider [phone] Allergies No known active allergies Medications atenoloL [...] Safety Answer Date Record ed Physical Abuse Unrecognized value 08/31/2024 Verbal Abuse Unrecognized value 08/31/2024 Sex and Gender Information Value Date [...] Health Maintenance Due Date Last Done Comments Colorectal Cancer Screening: Colonoscopy 1956 DTaP,Tdap,and Td Vaccines (1 - Tdap) 07/11/1975 Zoster Vaccines (1 of 2) 2006 RSV Immunization Adult Patients (1 - Risk 60-74 years 1-dose series) 2016 Medicare Annual Wellness Visit 03/29/2022 Social Influencers of Health Screening 03/29/2022 Depression Screening 05/01/2024 COVID-19 Vaccine ( season) [...] mmol/L LAB CHEMISTRY METHOD 09/01/2024 7:02 AM [facility] Potassium 4.3 3.5 - 5.5 mmol/L LAB CHEMISTRY METHOD 09/01/2024 7:02 AM [facility] Chloride 104 96 - 110 mmol/L LAB CHEMISTRY METHOD 09/01/2024 7:02 AM [facility] CO2 29 21 - 32 mmol/L LAB CHEMISTRY METHOD 09/01/2024 7:02 AM [facility] Anion Gap 5 3 - 11 LAB CHE[facility]STR[facility] Glucose 110(H) 70 - 100 mg/dL LAB CHEMISTRY METHOD 09/01/2024 7:02 AM [facility] BUN 15 5 - 25 mg/dL LAB CHEMISTRY METHOD 09/01/2024 7:02 AM [facility] Creatinine 0.91 0.70 - 1.30 mg/dL LAB CHEMISTRY METHOD 09/01/2024 7:02 AM [facility] eGFR 92 >=60 mL/min/1. 73m2 LAB CHEMISTRY METHOD 09/01/2024 7:02 AM [facility] Comment:Calculation based on the Chronic Kidney Disease Epidemiology Collaboration (CKD-EPI) equation refit without adjustment for race. BUN/Creatinine Ratio 16.5 LAB CHEMISTRY METHOD 09/01/2024 7:02 AM [facility] Calcium 9.2 8.5 - 10.5 mg/dL LAB CHEMISTRY METHOD 09/01/2024 7:02 AM [facility] Blood Venous blood specimen / Unknown Venipuncture / Unknown 09/01/2024 5:54 AM EDT 09/01/2024 6:07 AM EDT us Willam Jovel MD LAB BLOOD ORDERABLES Final Res ult [facility] [address] [place] [address], * Lipid panel with reflex to direct LDL (08/31/2024 8:36 AM EDT) Cholesterol 127 0 - 200 mg/dL LAB CHEMISTRY METHOD 08/31/2024 2:25 PM [facility] Triglycerides 117 0 - 150 mg/dL LAB CHEMISTRY METHOD 08/31/2024 2:25 PM [facility] HDL 61 >=40 [...] Res ult [facility] [address] [place] [address], from Last 3 Months or Most Recently Relevant to Health Maintenance Insurance [facility] Member Subscriber Plan / Payer (Ef fective 2022-Present) Name:Andres Weiss Relation to Subscriber:Self Name:Andres Weiss Payer ID:[id number] Group ID:[id number] Type:Not on file Address: [address] [facility] [place] [address] [facility] MEDICARE Member Subscriber Plan / Payer (Ef fective 2022-Present) Name:Andres Weiss Relation to Subscriber:Self Name:Andres Weiss Payer ID:[id number] Group ID:[id number] Type:Not on file Address: [address] [place] [id number] Advance Directives * Full Code - Default [...] currently active code status orders. Care Teams Wine Pasteurizer Relationship Specialty Start Date End Date Barbara Peterson MD [address] [place] [address] , [address] Physician Associ D/B/A: [facility] JASEN Perez PCP - General Internal Medicine 08/31/24
== END 2025-01-31 11:20 | disposition home or self-care (01) ==
PROVIDERS: PCP Internal Medicine; Visit Provider Internal Medicine Medical Oncology
DX: Z79.01 Long term (current) use of anticoagulants (principal)

== ENCOUNTER → 2025-01-31 10:07 | Outpatient (BNVA) | payer OTHER, SELFPAY | PROVIDERS: PCP Internal Medicine; Visit Provider Internal Medicine Medical Oncology | DX: Z95.2 Presence of prosthetic heart valve (principal); Z79.01 Long term (current) use of anticoagulants; Z51.81 Encounter for therapeutic drug level monitoring | CPT/HCPCS: 85610; 99211 ==

== ENCOUNTER 2025-02-14 09:50 | Outpatient (AMB) | payer OTHER, SELFPAY ==
[2025-02-14 10:02] LABS: Prothrombin Time Whole Bld POC 37.4 sec (11.1-13.5); ~PT, ~INR - Anti Coag Clinic 3.1 (0.9-1.1)
--- NOTE | 2025-02-14 10:04 | MHC.OFFVISCO ---
Intake Intake Visit Reasons: Anticoagulation Allergies No Known Allergies (No Known Allergies*) Allergy (Verified 02/14/25 09:57) Medication List - Last Reconciled 02/14/25 by Brissa Daniels RN acetaminophen 650 mg PO Q6H PRN atenolol 50 mg PO DAILY atorvastatin 40 mg PO BEDTIME [compression stockings knee-high 20 mmHg] darolutamide (Nubeqa) 300 mg PO BID furosemide 40 mg PO QAM lactulose 15 mL PO DAILY lisinopril 20 mg PO DAILY 90 days oxycodone-acetaminophen 5-325 mg 1 tab PO Q12H PRN 30 days potassium chloride ER (Klor-Con M) 20 mEq PO QAM tirzepatide (weight loss) (Zepbound) 2.5 mg (0.5 mL) subcut QWEEK 4 weeks warfarin 5 mg See Protocol PO DAILY 90 days Nursing Note INR: 3.1 out of therapeutic range 2.5-3.0 Medications and supplements reviewed No changes in health, diet, medications, or supplements, Denies any signs and symptoms of bleeding or bruising or clotting. Bleeding, bruising, clotting discussed Nutritional guidance given to have a serving of greens today Dose: 5mg daily F/U INR: 3 weeks Patient verbalizes understanding of instructions given Anti-Coag Initial Assessment Social Hx Patient Tobacco Use Status: Never used Tobacco alcohol intake: current Alcohol intake frequency: holidays/special occasions only Cardiovascular Hx: HTN, Arrhythmias and Cardiomyopathy Musculoskeletal Hx: Other Blood Disorder Hx: Hyperlipidemia Hx: Prostate Neurological Hx: Stroke/TIA Cancer HX: Yes (prostate) Psych. Illness/Depression: No Coding Level of Care Code Est Patient Level 1 Diagnoses Current use of anticoagulant therapy Z79.01 Assessment & Plan Assessment & Plan (1) Current use of anticoagulant therapy: Code(s): Z79.01 - residential (current) use of anticoagulants Category: Medical
--- OUTSIDE RECORDS SUMMARY | 2025-02-14 11:23 | XMS_ITS | Clinical Summary ---
Author Organization [facility] Address [address] [place] [address] Phone Care Team Providers Care Automatic Riveting Machine Operator Name Role Phone Barbara Peterson MD Primary Care Provider [phone] Allergies No known active allergies Medications atenoloL [...] DTaP,Tdap,and Td Vaccines (1 - Tdap) 07/11/1975 RSV Immunization Adult Patients (1 - Risk 50-74 years 1-dose series) 2006 Zoster Vaccines (1 of 2) 2006 Medicare Annual Wellness Visit 03/29/2022 Social Influencers [...] mmol/L LAB CHEMISTRY METHOD 09/01/2024 7:02 AM [facility] Potassium 4.3 3.5 - 5.5 mmol/L LAB CHEMISTRY METHOD 09/01/2024 7:02 AM [facility] Chloride 104 96 - 110 mmol/L LAB CHEMISTRY METHOD 09/01/2024 7:02 AM [facility] CO2 29 21 - 32 mmol/L LAB CHEMISTRY METHOD 09/01/2024 7:02 AM [facility] Anion Gap 5 3 - 11 LAB CHEMISTRY METHOD 09/01/2024 7:02 AM EDT [facility] Glucose 110(H) 70 - 100 mg/dL LAB CHEMISTRY METHOD 09/01/2024 7:02 AM [facility] BUN 15 5 - 25 mg/dL LAB CHEMISTRY METHOD 09/01/2024 7:02 AM [facility] Creatinine 0.91 0.70 - 1.30 mg/dL LAB CHEMISTRY METHOD 09/01/2024 7:02 AM [facility] eGFR 92 >=60 mL/min/1. 73m2 LAB CHEMISTRY METHOD 09/01/2024 7:02 AM [facility] Comment:Calculation based on the Chronic Kidney Disease Epidemiology Collaboration (CKD-EPI) equation refit without adjustment for race. BUN/Creatinine Ratio 16.5 LAB CHEMISTRY METHOD 09/01/2024 7:02 AM [facility] Calcium 9.2 8.5 - 10.5 mg/dL LAB CHEMISTRY METHOD 09/01/2024 7:02 AM [facility] Blood Venous blood specimen / Unknown Venipuncture / Unknown 09/01/2024 5:54 AM EDT 09/01/2024 6:07 AM EDT us Willam Jovel MD LAB BLOOD ORDERABLES Final Res ult [facility] [address] [place] [address], * Lipid panel with reflex to direct LDL (08/31/2024 8:36 AM EDT) Cholesterol 127 0 - 200 mg/dL LAB CHEMISTRY METHOD 08/31/2024 2:25 PM [facility] Triglycerides 117 0 - 150 mg/dL LAB CHEMISTRY METHOD 08/31/2024 2:25 PM [facility] HDL 61 >=40 mg/dL LAB CHEMISTRY METHOD 08/31/2024 2:25 PM EDT [facility] LDL Calculated 43 0 - 100 mg/dL LAB CHEMISTRY METHOD 08/31/2024 2:25 PM EDT [facility] VLDL Cholesterol Darren 23.4 mg/dL LAB CHEMISTRY METHOD 08/31/2024 2:25 PM EDT [facility] Non HDL Chol. (LDL+VLDL) 66 <145 mg/dL LAB CHEMISTRY METHOD 08/31/2024 2:25 PM EDT [facility] Chol/HDL Ratio 2.1 0.0 - 4.4 LAB CHEMISTRY METHOD 08/31/2024 2:25 PM EDT [facility] Blood Venous blood specimen / Unknown Venipuncture / Unknown 08/31/2024 8:36 AM EDT 08/31/2024 9:04 AM EDT us Willam Jovel MD LAB BLOOD ORDERABLES Final Res ult [facility] [address] [place] [address], from Last 3 Months or Most Recently Relevant to Health Maintenance Insurance [facility] Member Subscriber Plan / Payer (Ef fective 2022-Present) Name:Andres Weiss Relation to Subscriber:Self Name:Andres Weiss Payer ID:[id number] Group ID:SCO Type:Not on file Address: [place] [address] [place] [address] [facility] MEDICARE Member Subscriber Plan / Payer (Ef fective 2022-Present) Name:Andres Weiss Relation to Subscriber:Self Name:Andres Weiss Payer ID:[id number] Group ID:[id number] Type:Not on file Address: [address] [place] [address] Advance Directives * Full Code - Default [...] currently active code status orders. Care Teams Automatic Riveting Machine Operator Relationship Specialty Start Date End Date Barbara Peterson MD [address] [place] [address] , [address] Physician Associ D/B/A: [facility] JASEN Perez PCP - General Internal Medicine 08/31/24
--- OUTSIDE RECORDS SUMMARY | 2025-02-14 11:23 | XMS_ITS | Data Portability ---
Author Organization [place] [facility] Address [address] [place] [address] Care Team Providers Care Disaster Recovery Coordinator Name Role Phone SANGITA REID Primary Care Provider [phone] Assessment Encounter Date Assessment Date Assessment LastModified by Organization Details LastModified Time 01/18/2022 01/18/2022 66 YO M patient establishing care with . On 12/14 he had open heart surgery at [facility] the transferred to [facility] facility. His sternotomy surgical incision has healed well. However he has a left medial lower leg surgical incision which is draining clear fluid. He was seen by his regular [facility]gger [facility] located in [place] Dr. Ramirez who did not assess his [...] and all questions were answered prior to team departure. Time On Scene with Patient: 01:11:41 [email or web address] Not available 01/18/2022 14:37:44 Plan of Treatment [...] By Organization Details Last Modified Time 01/18/2022 [id number] Thank you for yo ur visit with [...] please call [facility] at [phone] to help navigate your care. [email or web address] Not available 01/18/2022 13:18:22 Reason for Referral None Reported. Procedures Surgical History Date Name Laterality Status Provider Name and Address Organization Details Recorded Time open heart surgery completed October FREDO Engel [address], [place], [address], [place] [facility] 01/18/2022 13:26:42 Imaging Results [...] n 40 mg tablet TOME MARY TABLETA S LOS D AL ACOSTARSE active Not Available Not Available No t Available bicalutamid e 50 mg tablet TOME MARY TABLETA TOS LOS D active Not Available Not Available [...] mg tablet,milagro yed release TOME MARY TABLETA TOS D active Not Available Not Available No t Available warfarin 3 mg tablet TOME MARY TABLETA TODOS LOS [...] Pulse oximetry Body temperature Respiratory rate Systolic And Diastolic Provider Name and Address Organization Details Last Updated DateTime 2 78 /min 98 % 98 % 98 [degF] 16 /min 130/74 mm[Hg] Not Available [facility] 2 13:16:54 Social History Question Answer Notes LastModified by Organizat ion Details LastModified Time Tobacco Smoking Status Never Smoker October FREDO Engel [address], [place], [address], [place] [facility] 01/18/2022 13:24:50 Do You Have An Advance Directive? Yes [email or web address] Information not available 01/18/2022 Is Blood Transfusion Acceptable In An Emergency? Yes [email or web address] Information not available 01/18/2022 What Is Your Code Status? Full Code [email or web address] Information not available 01/18/2022 Within The Past 12 Months, Has It Happened That The Food You Bought Just Didn't Last And You Didn't Have Money To Get More. No [email or web address] Information not available 01/18/2022 Within The Past 12 Months, Have You Worried That Your Food Would Run Out Before You Got Money To Buy More. No [email or web address] Information not available 01/18/2022 Fall Risk: Do You Feel Unsteady When Standing Or Walking? No [email or web address] Information not available 01/18/2022 We Know That [...] Meetings) Choose Not To Answer This Question [email or web address] Information not available 01/18/2022 Excessive Alcohol Or Drug Use No [email or web address] Information not available 01/18/2022 Does This Patient Have A PCP? Yes Information not available 01/18/2022 Is This Patient In Hospice? No [email or web address] Information not available 01/18/2022 We Know From Many Of Our Patients That Covering All Of Their Costs Can Be Difficult At Times. This Can Cause Stress And Impact Health. In The Past Year, Have You Been Unable To Get Any Of The Following When It Was Really Needed? No [email or web address] Information not available 01/18/2022 What Is Your Housing Situation Today? I Have Housing [email or web address] Information not available 01/18/2022 Would You Like Help Connecting To Resources? None [email or web address] Information not available 01/18/2022 Sex: Unknown Functional Status Question Answer Note LastModified by Organizat ion Details LastModified Time Do you use any illicit or recreational drugs? No [email or web address] Information not available 01/18/2022 What is your level of alcohol consumption? Occasional [email or web address] Information not available 01/18/2022 Mental Status None recorded. Family History Nothing [...] Diagnosis SNOMED-CT Code Diagnosis ICD10 Code Diagnosis IMO Codes Diagnosis Note [id number] October FREDO Engel [facility] [address] [facility] [address] 01/18/2022 13:08:34 01/19/2022 07:50:40 Surgical incision wound of skin [id number] R23.8 Health Concerns Section Related Observation LastModified by Organization Detai ls LastModified Time None Recorded Concern Status LastModified by Organization Details LastModified Time None Recorded Advance Directives Directive Y: Payers Insurance Date Sequence Insurance Name Policy Number Policy Ma Covered Member ID Ma Member ID Guarantor Name 01/18/2022 1 *SELF PAY* Andres Weiss [id number] Andres Weiss 02/02/2022 2 [place] [facility] Andres Weiss [id number] Andres Weiss 02/02/2022 1 MEDICARE B-[place] [facility] Andres Weiss [id number] Andres Weiss Notes Date Note Type Note Provider Name and Address Organization Details Recorded Time 01/18/2022 text/html 66 YO M patient establishing care with . On 12/14 he had open heart surgery at [facility] the transferred to [facility] facility. His sternotomy surgical incision has healed well. However he has a left medial lower leg surgical incision which is draining clear fluid. He was seen by his regular [facility]gger [facility] located in [place] Dr. Ramirez who did not assess his leg wound because it wasn't draining at the time . Clear drainage of surgical incision began yesterday at 4 p.m. [facility] contacted for assessment. It was a scab and then it came off . October FREDO Engel [address], [place], [address], [place] [facility] 01/30/2022 10:04:41
== END 2025-02-14 10:07 | disposition home or self-care (01) ==
LOC: HO.ACS 09:50
PROVIDERS: PCP Internal Medicine; Visit Provider Internal Medicine Medical Oncology
DX: Z79.01 Long term (current) use of anticoagulants (principal)

== ENCOUNTER → 2025-02-14 09:50 | Outpatient (BNVA) | payer OTHER, SELFPAY | PROVIDERS: PCP Internal Medicine; Visit Provider Internal Medicine Medical Oncology | DX: Z01.30 Encounter for examination of blood pressure without abnormal findings (principal); Z95.2 Presence of prosthetic heart valve; Z79.01 Long term (current) use of anticoagulants; Z51.81 Encounter for therapeutic drug level monitoring | CPT/HCPCS: 85610; 99211 ==

== ENCOUNTER 2025-02-17 10:33 | Outpatient (AMB) | payer OTHER, SELFPAY ==
[2025-02-17 10:56] VITALS: BMI 40.9
--- NOTE | 2025-02-17 10:56 | A.OFFVIS_ITS ---
Vital Signs 02/17/25 10:56 Height 6 ft 1 in Weight 310 lb BMI 40.9 Intake Visit Reasons: Calcaneal Spur, RT Intake Note: Andres is a 69 year old male who presents today as a new patient for a calcaneal spur of his right foot. Pt reports the pain has been going on for a few months and he describes the pain as a pin and needles sensation. Pain is located on the plantar aspect of the heel. Patient has not tried any previous treatment and X rays are in patients chart. Foot X ray IMPRESSION: Calcaneal spurs as described. Mild to moderate narrowing of the interphalangeal joint of the great toe. Allergies No Known Allergies (No Known Allergies*) Allergy (Verified 02/17/25 10:57) HPI HPI Calcaneal Spur, RT: Details: The patient is a 69-year-old male past medical history of HOCM, CAD, CVA, HTN, AXEL, Afib, presenting with right foot pain. The pain has been present for approximately four to five months, beginning around September or October. The patient experiences increased pain in the morning upon getting out of bed, which improves after walking. The patient has not undergone any prior treatments for this condition. The pain is localized to the heel and is exacerbated by prolonged rest. There is no history of blood flow issues to the legs or previous procedures related to this condition. The patient also has bone spurs in the right foot, which have been noted during the examination. These spurs are located on the side and back of the heel, contributing to the discomfort. [facility] Medical History Prostate cancer Seroma after procedure Peripheral vascular disease Poor circulation Leg edema Morbid obesity Opiate dependence AXEL (obstructive sleep apnea) Lumbar degenerative disc disease PAF (paroxysmal atrial fibrillation) Essential hypertension History of stroke Paroxysmal atrial flutter Ventricular tachyarrhythmia Hypertrophic cardiomyopathy Surgical History H/O colonoscopy Status post aorto-coronary artery bypass graft Status post mitral valve replacement Status post implantation of mitral valve leaflet clip History of cardiac pacemaker (~03/2014) History of cardiac catheterization Family History Father Diabetes Mother No problems noted. Social History Housing: Apartment Alcohol intake: current Alcohol intake frequency: holidays/special occasions only Alcohol type: hard liquor Patient Tobacco Use Status: Never used Tobacco e-Cigarette/Vaping Use: Never Used Second Hand Smoke Exposure: No service: No Current occupational status: unemployed Cognitive needs: Yes Hearing needs: No Vision needs: Yes Review of Systems Const All systems reviewed & are unremarkable except as noted in HPI and below Physical Exam Vital Signs: BMI result Body Mass Index 40.9 Extrem Other: *Bilateral Lower Extremity Focused Exam Vascular: DP/PT 2/4, CFT<3s to digits, TG warm to cool, no pedal edema Derm: Dry xerosis bilaterally Neuro: Protective sensation grossly diminished to bilateral lower extremities MSK: Mild-moderate arch cavus bilaterally Mild tenderness on palpation of right plantar medial calcaneal tubercle. Ankle dorsiflexion 0 degrees on knee extension, 3-4 degrees on knee flexion. Results Reviewed Results Reviewed: Podiatry X-ray Read: 01/24/2025 X-ray right foot 3 views (AP, MO, Lateral) reviewed which shows large plantar heel spur, mild posterior calcaneal spur. Large os peroneum/cuboid accessory bone. Bone density is osteopenic. No evidence of swelling, foreign body, or calcifications. I personally reviewed the imaging and my findings are listed above. Assessment & Plan Assessment & Plan (1) Plantar fasciitis of right foot: Code(s): M72.2 - Plantar fascial fibromatosis Category: Medical Plan: * Discussed etiology of the patient's foot pain. Differential diagnosis includes plantar fasciitis, neuritis, tendinitis. * Patient educated on the nature and etiology of plantar fasciitis, which involves inflammation and microtearing of the plantar fascia due to repetitive stress and overuse. * Reviewed right foot x-ray. * The patient was counseled on conservative management of plantar fasciitis, including daily stretching exercises targeting the plantar fascia and Achilles tendon, use of supportive and properly fitting footwear, and consideration of custom or prefabricated orthotics to improve foot biomechanics. * Discussed that if symptoms persist despite these measures, further interventions such as corticosteroid injections may be considered. * Instructed the patient on home stretching and range of motion exercises including calf-stretches, frozen water bottle therapy, band-therapyy. * Recommended supportive shoe-wear with gel heel cups. Print out given to the patient. * Follow up in 3 weeks (2) Calcaneal spur: Code(s): M77.30 - Calcaneal spur, unspecified foot Category: Medical Plan: * Discussed surgical treatment options including excision of spur and plantar fasciectomy. * Recommended trialing conservative treatment first. Coding Level of Care Code New Pt Level 4 (24609) Diagnoses Plantar fasciitis of right foot M72.2 Calcaneal spur M77.30 Time Spent (min) 30
--- OUTSIDE RECORDS SUMMARY | 2025-02-17 12:33 | XMS_ITS | Encounter Summary ---
Author Organization [facility] Address [address] [facility] [address] [place] [address] Care Team Providers Care Plate Straightener Name Role Phone Barbara Valdivia MD Primary Care Provider [phone] Young Ramirez MD Unavailable [phone] Reason for Visit * Reason Comments Med Refill Encounter Details Date Type Department Care Team (Late st Contact Info) Description 12/19/2022 Refill [facility] [address] [place] [id number] Tunde Urias, [place] [address] [facility] [address] [place] [address] Severe mitral regurgitation Social History Tobacco Use [...] regurgitation documented in this encounter Care Teams Plate Straightener Relationship Specialty Start Date End Date Barbara Valdivia MD [address] [place] [address] PCP - General 06/04/21 Young Ramirez MD [address] [place] [address] Adjunct Instructor Cardiology 12/21/21 documented as of this encounter
--- OUTSIDE RECORDS SUMMARY | 2025-02-17 12:35 | XMS_ITS | Clinical Summary ---
Author Organization [facility] Address [address] [place] [address] Phone Care Team Providers Care Technical Photographer Name Role Phone Barbara Peterson MD Primary Care Provider [phone] Allergies No known active allergies Medications atenoloL [...] mmol/L LAB CHEMISTRY METHOD 09/01/2024 7:02 AM [facility] Potassium 4.3 3.5 - 5.5 mmol/L LAB CHEMISTRY METHOD 09/01/2024 7:02 AM [facility] Chloride 104 96 - 110 mmol/L LAB CHEMISTRY METHOD 09/01/2024 7:02 AM [facility] CO2 29 21 - 32 mmol/L LAB CHEMISTRY METHOD 09/01/2024 7:02 AM [facility] Anion Gap 5 3 - 11 LAB CHEMISTRY METHOD 09/01/2024 7:02 AM EDT [facility] Glucose 110(H) 70 - 100 mg/dL LAB CHEMISTRY METHOD 09/01/2024 7:02 AM [facility] BUN 15 5 - 25 mg/dL LAB CHEMISTRY METHOD 09/01/2024 7:02 AM [facility] Creatinine 0.91 0.70 - 1.30 mg/dL LAB CHEMISTRY METHOD 09/01/2024 7:02 AM [facility] eGFR 92 >=60 mL/min/1. 73m2 LAB CHEMISTRY METHOD 09/01/2024 7:02 AM [facility] Comment:Calculation based on the Chronic Kidney Disease Epidemiology Collaboration (CKD-EPI) equation refit without adjustment for race. BUN/Creatinine Ratio 16.5 LAB CHEMISTRY METHOD 09/01/2024 7:02 AM [facility] Calcium 9.2 8.5 - 10.5 mg/dL LAB CHEMISTRY METHOD 09/01/2024 7:02 AM [facility] Blood Venous blood specimen / Unknown Venipuncture / Unknown 09/01/2024 5:54 AM EDT 09/01/2024 6:07 AM EDT us Willam Jovel MD LAB BLOOD ORDERABLES Final Res ult [facility] [address] [place] [address], * Lipid panel with reflex to direct LDL (08/31/2024 8:36 AM EDT) Cholesterol 127 0 - 200 mg/dL LAB CHEMISTRY METHOD 08/31/2024 2:25 PM [facility] Triglycerides 117 0 - 150 mg/dL LAB CHEMISTRY METHOD 08/31/2024 2:25 PM [facility] HDL 61 >=40 mg/dL LAB CHEMISTRY METHOD 08/31/2024 2:25 PM EDT [facility] LDL Calculated 43 0 - 100 mg/dL LAB CHEMISTRY METHOD 08/31/2024 2:25 PM EDT [facility] VLDL Cholesterol Darren 23.4 mg/dL LAB CHEMISTRY METHOD 08/31/2024 2:25 PM EDT [facility] Non HDL Chol. (LDL+VLDL) 66 <145 mg/dL LAB CHEMISTRY METHOD 08/31/2024 2:25 PM EDT [facility] Chol/HDL Ratio 2.1 0.0 - 4.4 LAB CHEMISTRY METHOD 08/31/2024 2:25 PM EDT [facility] Blood Venous blood specimen / Unknown Venipuncture / Unknown 08/31/2024 8:36 AM EDT 08/31/2024 9:04 AM EDT us Willam Jovel MD LAB BLOOD ORDERABLES Final Res ult [facility] [address] [place] [address], from Last 3 Months or Most Recently Relevant to Health Maintenance Insurance [facility] Member Subscriber Plan / Payer (Ef fective 2022-Present) Name:Andres Weiss Relation to Subscriber:Self Name:Andres Weiss Payer ID:[id number] Group ID:[id number] Type:Not on file Address: [place] [address] [place] [id number] [facility] MEDICARE Member Subscriber Plan / Payer (Ef fective 2022-Present) Name:Andres Weiss Relation to Subscriber:Self Name:Andres Weiss Payer ID:[id number] Group ID:[id number] Type:Not on file Address: [address] [place] [address] Advance Directives * Full Code - Default [...] currently active code status orders. Care Teams Technical Photographer Relationship Specialty Start Date End Date Barbara Peterson MD [address] [place] [address] , [address] Physician Associ D/B/A: [facility] JASEN Perez PCP - General Internal Medicine 08/31/24
== END 2025-02-17 11:13 | disposition home or self-care (01) ==
LOC: HO.HPODS 10:34
PROVIDERS: PCP Internal Medicine; Visit Provider Student in an Organized Health Care Education/Training Program
DX: M72.2 Plantar fascial fibromatosis (principal); M77.31 Calcaneal spur, right foot
CPT/HCPCS: 99204

== ENCOUNTER → 2025-02-17 10:33 | Outpatient (BNVA) | payer OTHER, SELFPAY | PROVIDERS: PCP Internal Medicine; Visit Provider Student in an Organized Health Care Education/Training Program | DX: M77.31 Calcaneal spur, right foot (principal); M72.2 Plantar fascial fibromatosis | CPT/HCPCS: 99202 ==

== ENCOUNTER 2025-03-26 10:40 | Outpatient (AMB) | payer OTHER, SELFPAY ==
--- NOTE | 2025-03-26 10:45 | MHC.OFFVISCO ---
Intake Intake Visit Reasons: Anticoagulation Allergies No Known Allergies (No Known Allergies*) Allergy (Verified 03/26/25 10:41) Medication List - Last Reconciled 03/26/25 by Lanie Hendrickson RN acetaminophen 650 mg PO Q6H PRN atenolol 50 mg PO DAILY atorvastatin 40 mg PO BEDTIME [compression stockings knee-high 20 mmHg] darolutamide (Nubeqa) 300 mg PO BID furosemide 40 mg PO QAM lactulose 15 mL PO DAILY lisinopril 20 mg PO DAILY 90 days oxycodone-acetaminophen 5-325 mg 1 tab PO Q12H PRN 30 days potassium chloride ER (Klor-Con M) 20 mEq PO QAM tirzepatide (weight loss) (Zepbound) 2.5 mg (0.5 mL) subcut QWEEK 4 weeks warfarin 5 mg See Protocol PO DAILY 90 days Nursing Note INR: 2.8- in therapeutic range 2.5-3.0 Medications and supplements reviewed No changes in health, diet, medications, or supplements, Denies any signs and symptoms of bleeding or bruising or clotting. Bleeding, bruising, clotting discussed Nutritional guidance given Dose: 5mg x 7 F/U INR: pt req 3 weeks Patient verbalizes understanding of instructions given Anti-Coag Initial Assessment Social Hx Patient Tobacco Use Status: Never used Tobacco alcohol intake: current Alcohol intake frequency: holidays/special occasions only Cardiovascular Hx: HTN, Arrhythmias and Cardiomyopathy Musculoskeletal Hx: Other Blood Disorder Hx: Hyperlipidemia Hx: Prostate Neurological Hx: Stroke/TIA Cancer HX: Yes (prostate) Psych. Illness/Depression: No Coding Level of Care Code Est Patient Level 1 Diagnoses Current use of anticoagulant therapy Z79.01 Results AMB INR Fingerstick AMB INR Fingerstick 2.8 Last Edit by Lanie Hendrickson RN on 03/26/25 10:47 interface delay Assessment & Plan Assessment & Plan (1) Current use of anticoagulant therapy: Code(s): Z79.01 - terminal operator (current) use of anticoagulants Category: Medical Medications: Discontinued tirzepatide (weight loss) (Zepbound) for 4 weeks Discontinued Reason: Patient no longer taking 2.5 mg (0.5 mL) subcut QWEEK 4 weeks 2 mL 0RF E66.01 - Morbid (severe) obesity due to excess calories, G47.33 - Obstructive sleep apnea (adult) (pediatric), I10 - Essential (primary) hypertension, I42.2 - Other hypertrophic cardiomyopathy, I48.19 - Other persistent atrial fibrillation
[2025-03-26 10:46] LABS: Prothrombin Time Whole Bld POC 33.6 sec (11.1-13.5); ~PT, ~INR - Anti Coag Clinic 2.8 (0.9-1.1)
--- OUTSIDE RECORDS SUMMARY | 2025-03-26 12:53 | XMS_ITS | Clinical Summary ---
Author Organization [facility] Address [address] [place] [address] Phone Care Team Providers Care Court Stenographer Name Role Phone Barbara Peterson MD Primary Care Provider [phone] Allergies No known active allergies Medications atenoloL [...] 11 LAB [facility] Glucose 110(H) 70 - 100 mg/dL LAB CHEMISTRY METHOD 09/01/2024 7:02 AM [facility] BUN 15 5 - 25 mg/dL LAB CHEMISTRY METHOD 09/01/2024 7:02 AM [facility] Creatinine 0.91 0.70 - 1.30 mg/dL LAB CHEMISTRY METHOD 09/01/2024 7:02 AM [facility] eGFR 92 >=60 mL/min/1. 73m2 LAB CHEMISTRY METHOD 09/01/2024 7:02 AM [facility] Comment:Calculation based on the [...] Res ult [facility] [address] [place] [address], * Lipid panel with reflex to direct LDL (08/31/2024 8:36 AM EDT) Cholesterol 127 0 - 200 mg/dL LAB CHEMISTRY METHOD 08/31/2024 2:25 PM [facility] Triglycerides 117 0 - 150 mg/dL LAB CHEMISTRY METHOD 08/31/2024 2:25 PM [facility] HDL 61 >=40 [...] Res ult [facility] [address] [place] [address], from Last 3 Months or Most Recently Relevant to Health Maintenance Insurance [facility] Member Subscriber Plan / Payer (Ef fective 2022-Present) Name:Andres Weiss Relation to Subscriber:Self Name:Andres Weiss Payer ID:[id number] Group ID:SCO Type:Not on file Address: [address] [facility] [place] [id number] [facility] MEDICARE Member Subscriber Plan / Payer (Ef fective 2022-Present) Name:Andres Weiss Relation to Subscriber:Self Name:Andres Weiss Payer ID:[id number] Group ID:SCO Type:Not on file Address: [address] [place] [phone] Advance Directives * Full Code - Default [...] currently active code status orders. Care Teams Court Stenographer Relationship Specialty Start Date End Date Barbara Peterson MD [address] [place] [address] , [address] Physician Associ D/B/A: [facility] JASEN Perez PCP - General Internal Medicine 08/31/24
== END 2025-03-26 10:59 | disposition home or self-care (01) ==
LOC: HO.ACS 10:40
PROVIDERS: PCP Internal Medicine; Visit Provider Internal Medicine Medical Oncology
DX: Z79.01 Long term (current) use of anticoagulants (principal)

== ENCOUNTER → 2025-03-26 10:40 | Outpatient (BNVA) | payer OTHER, SELFPAY | PROVIDERS: PCP Internal Medicine; Visit Provider Internal Medicine Medical Oncology | DX: Z51.11 Encounter for antineoplastic chemotherapy (principal); C61 Malignant neoplasm of prostate; C77.2 Secondary and unspecified malignant neoplasm of intra-abdominal lymph nodes; Z95.2 Presence of prosthetic heart valve; Z51.81 Encounter for therapeutic drug level monitoring; Z79.01 Long term (current) use of anticoagulants | CPT/HCPCS: 85610; 96402; 99211; J9217 ==

== ENCOUNTER 2025-03-26 12:32 | Outpatient (AMB) | payer OTHER, SELFPAY ==
--- NOTE | 2025-03-26 12:44 | AM.OFFVISNUR ---
Intake Visit Reasons: GnRH injection Allergies No Known Allergies (No Known Allergies*) Allergy (Verified 03/26/25 10:41) Office Meds Eligard (6 month) 45 mg (6 month) subcutaneous syringe Performing Provider: Jian Russo MD [facility] Administered by: Liz Tate, SILVA on 03/26/25 12:55 Dose Route Admin Location Dispensed Lot Number Expiration Date [facility] Liability Claims Manager 45 mg subcut Left upper arm 45 mg [id number] 03/31/26 44596-179-29 [employer]. 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
--- OUTSIDE RECORDS SUMMARY | 2025-03-26 15:34 | XMS_ITS | Encounter Summary ---
Author Organization [facility] Address [address] [facility] [address] [place] [address] Care Team Providers Care Music Critic Name Role Phone Barbara Valdivia MD Primary Care Provider [phone] Young Ramirez MD Unavailable [phone] Reason for Visit * Reason Comments Med Refill Encounter Details Date Type Department Care Team (Late st Contact Info) Description 01/21/2022 Refill [facility] [address] [place] [id number] Tunde Urias, [place] [address] [facility] [address] [place] [address] Severe mitral regurgitation Social History Tobacco Use [...] regurgitation documented in this encounter Care Teams Music Critic Relationship Specialty Start Date End Date Barbara Valdivia MD [address] [place] [address] PCP - General 06/04/21 Young Ramirez MD [address]rd [place] [address] Custodial Worker Cardiology 12/21/21 documented as of this encounter
--- OUTSIDE RECORDS SUMMARY | 2025-03-26 15:34 | XMS_ITS | Encounter Summary ---
Author Organization [facility] Address [address] [facility] [address] [place] [address] Care Team Providers Care Swine Genetics Researcher Name Role Phone Barbara Valdivia MD Primary Care Provider [phone] Young Ramirez MD Unavailable [phone] Reason for Visit * Reason Comments Med Refill Encounter Details Date Type Department Care Team (Late st Contact Info) Description 12/16/2022 Refill [facility] Unit [address] [place] [phone] Tunde Urias, [place] [address] [facility] [address] [place] [address] Severe mitral regurgitation Social History Tobacco Use [...] regurgitation documented in this encounter Care Teams Swine Genetics Researcher Relationship Specialty Start Date End Date Barbara Valdivia MD [address] [place] [address] PCP - General 06/04/21 Young Ramirez MD [address]rd [place] [address] Storage Facility Rental Clerk Cardiology 12/21/21 documented as of this encounter
--- OUTSIDE RECORDS SUMMARY | 2025-03-26 15:34 | XMS_ITS | Encounter Summary ---
Author Organization [facility] Address [address] [facility] [address] [place] [address] Care Team Providers Care Emergency Dept Tech Name Role Phone Barbara Valdivia MD Primary Care Provider [phone] Young Ramirez MD Unavailable [phone] Reason for Visit * Reason Comments Med Refill Encounter Details Date Type Department Care Team (Late st Contact Info) Description 12/19/2022 Refill [facility] [address] [place] [phone] Tunde Urias, [place] [address] [facility] [address] [place] [address] Severe mitral regurgitation Social History Tobacco Use [...] regurgitation documented in this encounter Care Teams Emergency Dept Tech Relationship Specialty Start Date End Date Barbara Valdivia MD [address] [place] [address] PCP - General 06/04/21 Young Ramirez MD [address] [place] [address] Test Consultant Cardiology 12/21/21 documented as of this encounter
--- OUTSIDE RECORDS SUMMARY | 2025-03-26 15:34 | XMS_ITS | Encounter Summary ---
Author Organization [facility] Address [address] [facility] [address] [place] [address] Care Team Providers Care Contract Consultant Name Role Phone Barbara Valdivia MD Primary Care Provider [phone] Young Ramirez MD Unavailable [phone] Reason for Visit * Reason Comments Med Refill Encounter Details Date Type Department Care Team (Late st Contact Info) Description 06/20/2023 Refill [facility] Unit [address] [place] [phone] Tunde Urias, [place] [address] [facility] [address] [place] [address] Severe mitral regurgitation Social History Tobacco Use [...] documented in this encounter Care Teams Contract Consultant Relationship Specialty Start Date End Date Barbara Valdivia MD [address] [place] [address] PCP - General 06/04/21 Young Ramirez MD [address]rd [place] [address] Mold Release Worker Cardiology 12/21/21 documented as of this encounter
--- OUTSIDE RECORDS SUMMARY | 2025-03-26 15:34 | XMS_ITS | Data Portability ---
Author Organization [facility] Address [address] [place] [address] Care Team Providers Care Building Coordinator Name Role Phone SANGITA REID Primary Care Provider [phone] Assessment Encounter Date Assessment Date Assessment LastModified by Organization Details LastModified Time 01/18/2022 01/18/2022 66 YO M patient establishing care with . On 12/14 he had open heart surgery at [facility] the transferred to [facility] facility. His sternotomy surgical incision has healed well. However he has a left medial lower leg surgical incision which is draining clear fluid. He was seen by his regular sock mender located in [place] Dr. Ramirez who did not assess his [...] departure. Time On Scene with Patient: 01:11:41 [email or web address] Not available 01/18/2022 14:37:44 Plan of Treatment [...] By Organization Details Last Modified Time 01/18/2022 [id number] Thank you for yo ur visit with [facility] today. You were seen today [...] in your condition between 8am-10pm, please call [facility] at [phone] to help navigate your care. 3 Not available 01/18/2022 13:18:22 Reason for Referral None Reported. Procedures Surgical History Date Name Laterality Status Provider Name and Address Organization Details Recorded Time open heart surgery completed October FREDO Engel [address], [place], [address], [place] [facility] 01/18/2022 13:26:42 Imaging Results [...] Vitals Date Recorded Heart rate Oxygen saturation Body temperature Respiratory rate Systolic And Diastolic Provider Name and Address Organization Details Last Updated DateTime 2 78 /min 98 % 98 [degF] 16 /min 130/74 mm[Hg] Not Available [facility] 2 13:16:54 Social History Question Answer Notes LastModified by Organizat ion Details LastModified Time Tobacco Smoking Status Never Smoker October, [employer] [address], [place], [address], [place] [facility] 01/18/2022 13:24:50 Do You Have An Advance Directive? Yes [email or web address] Information not available 01/18/2022 Is Blood Transfusion Acceptable In An Emergency? Yes [email or web address] Information not available 01/18/2022 What Is Your Code Status? Full Code [id number] Information not available 01/18/2022 Within The Past 12 Months, Has It Happened That The Food You Bought Just Didn't Last And You Didn't Have Money To Get More. No [email or web address] Information not available 01/18/2022 Within The Past 12 Months, Have You Worried That Your Food Would Run Out Before You Got Money To Buy More. No [email or web address] Information not available 01/18/2022 Fall Risk: Do You Feel Unsteady When Standing Or Walking? No [email or web address] Information not available 01/18/2022 We Know That How And When People Interact With Friends And Family Can Be Very Different From Person To Person. How Often Do You Have The Opportunity To See Or Talk To People That You Care About And Feel Close To? (Ex: Talking To Friends On The Phone Or Visiting Friends Or Family Or Going To Hindu Or Club Meetings) Choose Not To Answer This Question [email or web address] Information not available 01/18/2022 Excessive Alcohol Or Drug Use No [email or web address] Information not available 01/18/2022 Does This Patient Have A PCP? Yes [email or web address] Information not available 01/18/2022 Is This Patient In Hospice? No Information not available 01/18/2022 We Know From Many Of Our Patients That Covering All Of Their Costs Can Be Difficult At Times. This Can Cause Stress And Impact Health. In The Past Year, Have You Been Unable To Get Any Of The Following When It Was Really Needed? No Information not available 01/18/2022 What Is Your Housing Situation Today? I Have Housing [email or web address] Information not available 01/18/2022 Would You Like Help Connecting To Resources? None [email or web address] Information not available 01/18/2022 Sex: Unknown Functional Status Question Answer Note LastModified by Organizat ion Details LastModified Time Do you use any illicit or recreational drugs? No [email or web address] Information not available 01/18/2022 What is your level of alcohol consumption? Occasional [email or web address] Information not available 01/18/2022 Mental Status None [...] ICD10 Code Diagnosis IMO Codes Diagnosis Note [id number] October FREDO Engel [facility] [address] [facility] [address] 01/18/2022 13:08:34 01/19/2022 07:50:40 Surgical incision wound of skin [id number] R23.8 Health Concerns Section Related Observation LastModified by Organization Detai ls LastModified Time None Recorded Concern Status LastModified by Organization Details LastModified Time None Recorded Advance Directives Directive Y: Payers Insurance Date Sequence Insurance Name Policy Number Policy Ma Covered Member ID Ma Member ID Guarantor Name 01/18/2022 1 *SELF PAY* Andres Weiss [id number] Andres Weiss 02/02/2022 2 [place] [facility] Andres Weiss [id number] Andres Weiss 02/02/2022 1 MEDICARE B-[place] [employer] Andres Weiss [id number] Andres Weiss Notes Date Note Type Note Provider Name and Address Organization Details Recorded Time 01/18/2022 text/html 66 YO M patient establishing care with . On 12/14 he had open heart surgery at [facility] the transferred to [facility] facility. His sternotomy surgical incision has healed well. However he has a left medial lower leg surgical incision which is draining clear fluid. He was seen by his regular sock mender located in [place] Dr. Ramirez who did not assess his leg wound because it wasn't draining at the time . Clear drainage of surgical incision began yesterday at 4 p.m. [facility] contacted for assessment. It was a scab and then it came off . October FREDO Engel [address], [place], [address], [place] [facility] 01/30/2022 10:04:41
--- OUTSIDE RECORDS SUMMARY | 2025-03-26 15:34 | XMS_ITS | Clinical Summary ---
Author Organization [facility] Address [address] [facility] [place] [address] Care Team Providers Care Switch Engineer Name Role Phone Barbara Valdivia MD Primary Care Provider [phone] Young Ramirez MD Unavailable [phone] Allergies No known active allergies Medications finasteride [...] age to complete this topic HPV Vaccines (No Doses Required) Completed Hepatitis A Vaccines Aged Out No long [...] this topic Medical Devices Implanted Type Area Financial Services Internship Device Identifier Shelf Expiration Date Model / Serial / Lot Seed Mill Superintendent-D Icd ROW BOSS-D ICD Left: Chest [employer] Unknown [id number] Cardiac Pacemaker [employer] UNKNOWN / [id number] / Band Tri-Ad 2.0 Harper 34mm - [id number] - [id number] Implanted:Qty : 1 on 12/21/2021 by Cheo Cannon MD at [facility] Heart Valve Repair N/A: Chest MED[employer] PACING 01/25/2026 [id number] / [id number] / Device Ck Cor Knot - Sna - [id number] Implanted:Qty : 1 on 12/21/2021 by Cheo Cannon MD at [facility] Implant N/A: Chest [employer]SI SOLUTIONS 08/23/2023 [id number] / NA / Valve On-X Mitral 31/33mm W/St - [id number] - [id number] Implanted:Qty : 1 on 12/21/2021 by Cheo Cannon MD at [facility] Prosthetic Valve N/A: Heart [employer] 05/10/2027 ONXM-31/33 / [id number] / Patch Photofix 0.8x8cm - Sna - [id number] Implanted:Qty : 1 on 12/21/2021 by Cheo Cannon MD at [facility] Vascular Graft N/A: Aorta [employer] 07/25/2023 [id number] / NA / [id number] Procedures Procedure Name Priority Date/Time Associated Diagnosis [...] 1, stool (12/31/2021 11:03 AM EDT) Pathologist [facility] Date I MANUAL METHOD 12/31/2021 11:37 AM EDT [facility] Occult Blood Stool I Positive( A) Negative, No Sample Received MANUAL METHOD 12/31/2021 11:37 AM EDT [facility] Stool Rectal contents / Unknown Non-blood Collection / Unknown 12/31/2021 11:03 AM EDT 12/31/2021 11:07 AM EDT Cheo Cannon MD LAB BODY FLUIDS AND STOOLS ORDERABLES Final Result Performing Organization Address [facility] Co de Phone Number [facility] [address] [place] [address], * Hepatitis C antibody (12/29/2021 6:39 AM EDT) [facility] Hepatitis C antibody Non Reactive Non Reactive [facility] ARCH I2000 3 12/29/2021 10:58 AM EDT [facility] Comment:Antibodies to HCV no t detected; does not exclude the possibility of exposure to HCV. Blood Venous blood specimen / Unknown Venipuncture / Unknown 12/29/2021 6:39 AM EDT 12/29/2021 6:39 AM EDT Narrative [facility] - 12/29/2021 10:58 AM EDT The positive predictive value of this antibody test varies with the prevalence of Hepatitis C virus. Clinical confirmation of Hepatitis C using a qualitative Hepatitis C RNA determination may be indicated. [facility] LAB BLOOD ORDERABLES Final Re sult [facility] [address] [place] [address], [place] * Glucose, random (12/26/2021 4:19 AM EDT) [facility] Glucose 100 70 - 139 mg/dL 12/26/2021 5:30 AM EDT [facility] Fasting? Unknown 12/26/2021 5:30 AM EDT [facility] Blood Venous blood specimen / Unknown Venipuncture / Unknown 12/26/2021 4:19 AM EDT 12/26/2021 4:36 AM EDT us Cheo Cannon MD LAB BLOOD ORDERABLES Final Result Performing Organization Address City/[facility]/ZIP Co de Phone Number [facility] [address] [place] [address], * Lipid panel (12/15/2021 4:25 AM EDT) Triglycerides 62 <=150 mg/dL 12/15/2021 2:09 PM EDT [facility] Cholesterol 123 <=200 mg/dL 12/15/2021 2:09 PM EDT [facility] HDL cholesterol 42 >=40 mg/dL 2:09 PM EDT [facility] LDL cholesterol, calculated 69 0 - 130 mg/dL 12/15/2021 2:09 PM EDT [facility] Cholesterol/HDL Ratio 2.9 12/15/2021 2:09 PM EDT [facility] Blood Venous blood specimen / Unknown Venipuncture / Unknown 12/15/2021 4:25 AM EDT 12/15/2021 5:31 AM EDT us Pritesh Salinas MD LAB BLOOD ORDERABLES Final Re sult Performing Organization Address City/[facility] Co de Phone Number [facility] [address] [place] [address], from Last 3 Months or Most Recently Relevant to Health Maintenance Insurance MEDICARE PART A AND B MEDICAID STANDARD [employer] LONGTERM OPTIONS Advance Directives Documents on File Type Date Recorded Patient Hog Grader Expl anation Health Care Proxy 06/27/2021 8:07 AM Conve [facility] Healthcare Proxy ([facility] Soarian DM) Health Care Proxy 06/18/2021 3:10 PM Conve [facility] Healthcare Proxy ([facility] Soarian DM) Advance Directives and Living Will 12/16/2021 Health Care Proxy * Full Code (Latest Code Status on File) Date Activated Date Inactivated Comments 12/21/2021 9:39 PM 01/01/2022 4:30 PM * Full Code Date Activated Date Inactivated Comments 12/14/2021 6:44 PM 12/21/2021 9:39 PM Care Teams Switch Engineer Relationship Specialty Start Date End Date Barbara Valdivia MD [address] [place] [address] PCP - General 06/04/21 Young Ramirez MD [address] [place] [address] Cardiology 12/21/21
--- OUTSIDE RECORDS SUMMARY | 2025-03-26 15:34 | XMS_ITS | Encounter Summary ---
Author Organization [facility] Address [address] [facility] [address] [place] [address] Care Team Providers Care Electrical Sign Wirer Name Role Phone Barbara Valdivia MD Primary Care Provider [phone] Young Ramirez MD Unavailable [phone] Reason for Visit * Reason Comments Med Refill Encounter Details Date Type Department Care Team (Late st Contact Info) Description 06/21/2022 Refill [facility] Medical Surgical Unit [address] [place] [phone] Tunde Urias, FLACO [address] [facility] [address] [place] [address] Severe mitral regurgitation Social History Tobacco Use [...] regurgitation documented in this encounter Care Teams Electrical Sign Wirer Relationship Specialty Start Date End Date Barbara Valdivia MD [address] [place] [address] PCP - General 06/04/21 Young Ramirez MD [address]rd [place] [address] Glove Finisher Cardiology 12/21/21 documented as of this encounter
== END 2025-03-26 15:15 | disposition home or self-care (01) ==
LOC: HO.HUSH 12:32
PROVIDERS: PCP Internal Medicine; Visit Provider Urology
DX: C61 Malignant neoplasm of prostate (principal); C77.2 Secondary and unspecified malignant neoplasm of intra-abdominal lymph nodes; R97.21 Rising PSA following treatment for malignant neoplasm of prostate

== ENCOUNTER 2025-03-31 09:12 | Outpatient (AMB) | payer OTHER, SELFPAY ==
--- NOTE | 2025-03-31 09:31 | A.OFFVIS_ITS ---
Vital Signs 03/31/25 09:32 Height 6 ft 1 in Weight 310 lb BMI 40.9 Intake Visit Reasons: Calcaneal Spur, RT Intake Note: Andres is a 69 year old male who is here for a follow up for his calcaneal spur of his right foot. Patient was advised of daily stretching exercises targeting the plantar fascia and Achilles tendon, use of supportive and properly fitting footwear, and consideration of custom or prefabricated orthotics to improve foot biomechanics. Instructed the patient on home stretching and range of motion exercises including calf-stretches, frozen water bottle therapy, band-therapy. Recommended supportive shoe-wear with gel heel cups. Print out given to the patient. Patient reports everything is going well and he has seen significant improvement in regards to his pain. He states he has been performing the stretching exercises and hwe has been unable to purchase the supportive shoe wear with the gel heel cups. Allergies No Known Allergies (No Known Allergies*) Allergy (Verified 03/31/25 09:33) HPI HPI Calcaneal Spur, RT: Details: The patient is a 69-year-old male past medical history of HOCM, CAD, CVA, HTN, AXEL, Afib, returns for follow up of right heel pain. The patient states he has been performing range of motion and stretching exercises and has noted most of his pain has resolved. [facility] Medical History Prostate cancer Seroma after procedure Peripheral vascular disease Poor circulation Leg edema Morbid obesity Opiate dependence AXEL (obstructive sleep apnea) Lumbar degenerative disc disease PAF (paroxysmal atrial fibrillation) Essential hypertension History of stroke Paroxysmal atrial flutter Ventricular tachyarrhythmia Hypertrophic cardiomyopathy Surgical History H/O colonoscopy Status post aorto-coronary artery bypass graft Status post mitral valve replacement Status post implantation of mitral valve leaflet clip History of cardiac pacemaker (~03/2014) History of cardiac catheterization Family History Father Diabetes Mother No problems noted. Social History Housing: Apartment Alcohol intake: current Alcohol intake frequency: holidays/special occasions only Alcohol type: hard liquor Patient Tobacco Use Status: Never used Tobacco e-Cigarette/Vaping Use: Never Used Second Hand Smoke Exposure: No service: No Current occupational status: unemployed Cognitive needs: Yes Hearing needs: No Vision needs: Yes Review of Systems Const All systems reviewed & are unremarkable except as noted in HPI and below Physical Exam Vital Signs: BMI result Body Mass Index 40.9 Extrem Other: *Bilateral Lower Extremity Focused Exam Vascular: DP/PT 2/4, CFT<3s to digits, TG warm to cool, no pedal edema Derm: Dry xerosis bilaterally Neuro: Protective sensation grossly diminished to bilateral lower extremities MSK: Mild-moderate arch cavus bilaterally No tenderness on palpation of right plantar medial calcaneal tubercle. Ankle dorsiflexion 0 degrees on knee extension, 3-4 degrees on knee flexion. Assessment & Plan Assessment & Plan (1) Plantar fasciitis of right foot: Code(s): M72.2 - Plantar fascial fibromatosis Category: Medical Plan: * Discussed etiology of the patient's foot pain. Differential diagnosis includes plantar fasciitis, neuritis, tendinitis. * Patient educated on the nature and etiology of plantar fasciitis, which involves inflammation and microtearing of the plantar fascia due to repetitive stress and overuse. * Previously reviewed right foot x-ray. * Instructed to continue range of motion and stretching exercises * Continue supportive sneakers * Follow up as needed (2) Calcaneal spur: Code(s): M77.30 - Calcaneal spur, unspecified foot Category: Medical Qualifiers: Laterality: right Qualified Code(s): M77.31 - Calcaneal spur, right foot Plan: * Discussed surgical treatment options including excision of spur and plantar fasciectomy if pain becomes recalcitrant. Coding Level of Care Code Est Pt Level 3 (97309) Diagnoses Plantar fasciitis of right foot M72.2 Calcaneal spur of right foot M77.31 Laterality: right Time Spent (min) 20
[2025-03-31 09:32] VITALS: BMI 40.9
--- OUTSIDE RECORDS SUMMARY | 2025-03-31 10:54 | XMS_ITS | Encounter Summary ---
Author Organization [facility] Address [address] [facility] [address] [place] [address] Care Team Providers Care Armhole Sewer Name Role Phone Barbara Valdivia MD Primary Care Provider [phone] Young Ramirez MD Unavailable [phone] Reason for Visit * Reason Comments Med Refill Encounter Details Date Type Department Care Team (Late st Contact Info) Description 06/21/2022 Refill [facility] Medical Surgical Unit [address] [place] [phone] Tunde Urias, FLACO [address] [facility] [address] [place] [address] Severe mitral regurgitation Social History Tobacco Use [...] regurgitation documented in this encounter Care Teams Armhole Sewer Relationship Specialty Start Date End Date Barbara Valdivia MD [address] [place] [address] PCP - General 06/04/21 Young Ramirez MD [address]rd [place] [address] Liquid Yeast Supervisor Cardiology 12/21/21 documented as of this encounter
--- OUTSIDE RECORDS SUMMARY | 2025-03-31 10:54 | XMS_ITS | Encounter Summary ---
Author Organization [facility] Address [address] [facility] [address] [place] [address] Care Team Providers Care Social Director Name Role Phone Barbara Valdivia MD Primary Care Provider [phone] Young Ramirez MD Unavailable [phone] Reason for Visit * Reason Comments Med Refill Encounter Details Date Type Department Care Team (Late st Contact Info) Description 01/21/2022 Refill [facility] Medical Surgical Unit [address] [place] [phone] Tunde Urias, FLACO [address] [facility] [address] [place] [address] Severe mitral regurgitation Social History Tobacco Use [...] regurgitation documented in this encounter Care Teams Social Director Relationship Specialty Start Date End Date Barbara Valdivia MD [address] [place] [address] PCP - General 06/04/21 Young Ramirez MD [address]rd [place] [address] Scrap Sawyer Cardiology 12/21/21 documented as of this encounter
--- OUTSIDE RECORDS SUMMARY | 2025-03-31 10:54 | XMS_ITS | Encounter Summary ---
Author Organization [facility] Address [address] [facility] [address] [place] [address] Care Team Providers Care Boat Canvas Maker And Installer Name Role Phone Barbara Valdivia MD Primary Care Provider [phone] Young Ramirez MD Unavailable [phone] Reason for Visit * Reason Comments Med Refill Encounter Details Date Type Department Care Team (Late st Contact Info) Description 12/19/2022 Refill [facility] Medical Surgical Unit [address] [place] [phone] Tunde Urias, FLACO [address] [facility] [address] [place] [address] Severe mitral regurgitation Social History Tobacco Use [...] regurgitation documented in this encounter Care Teams Boat Canvas Maker And Installer Relationship Specialty Start Date End Date Barbara Valdivia MD [address] [place] [address] PCP - General 06/04/21 Young Ramirez MD [address] [place] [address] Home Performance Consultant Cardiology 12/21/21 documented as of this encounter
--- OUTSIDE RECORDS SUMMARY | 2025-03-31 10:54 | XMS_ITS | Clinical Summary ---
Author Organization [facility] Address [address] [facility] [place] [address] Care Team Providers Care Brush Filler Hand Name Role Phone Barbara Valdivia MD Primary Care Provider [phone] Young Ramirez MD Unavailable [phone] Allergies No known active allergies Medications finasteride [...] this topic Medical Devices Implanted Type Area Student Life Vice President Device Identifier Shelf Expiration Date Model / Serial / Lot Mri Supervisor-D Icd IMAGE PROCESSING ENGINEER-D ICD Left: Chest [employer] Unknown [id number] Cardiac Pacemaker [employer] UNKNOWN / [id number] / Band Tri-Ad 2.0 Harper 34mm - [id number] - [id number] Implanted:Qty : 1 on 12/21/2021 by Cheo Cannon MD at [facility] Heart Valve Repair N/A: Chest [employer] PACING 01/25/2026 [id number] / [id number] / Device Ck Cor Knot - Sna - [id number] Implanted:Qty : 1 on 12/21/2021 by Cheo Cannon MD at [facility] Implant N/A: Chest [employer] 08/23/2023 [id number] / [id number] / Valve On-X Mitral 31/33mm W/St - [id number] - [id number] Implanted:Qty : 1 on 12/21/2021 by Cheo Cannon MD at [facility] Prosthetic Valve N/A: Heart [employer] 05/10/2027 ONXM-31/33 / [id number] / Patch Photofix 0.8x8cm - Sna - [id number] Implanted:Qty : 1 on 12/21/2021 by Cheo Cannon MD at [facility] Vascular Graft N/A: Aorta [employer] 07/25/2023 PFP0.8X8 / NA / [id number] Procedures Procedure Name Priority Date/Time Associated Diagnosis [...] 1, stool (12/31/2021 11:03 AM EDT) Pathologist [facility] Date I MANUAL METHOD 12/31/2021 11:37 AM EDT [facility] Occult Blood Stool I Positive( A) Negative, No Sample Received MANUAL METHOD 12/31/2021 11:37 AM EDT [facility] Stool Rectal contents / Unknown Non-blood Collection / Unknown 12/31/2021 11:03 AM EDT 12/31/2021 11:07 AM EDT Cheo Cannon MD LAB BODY FLUIDS AND STOOLS ORDERABLES Final Result Performing Organization Address [facility] Co de Phone Number [facility] [address] [place] [address], * Hepatitis C antibody (12/29/2021 6:39 AM EDT) [facility] Hepatitis C antibody Non Reactive Non Reactive [facility] ARCH I2000 3 12/29/2021 10:58 AM EDT [facility] Comment:Antibodies to HCV no t detected; does not exclude the possibility of exposure to HCV. Blood Venous blood specimen / Unknown Venipuncture / Unknown 12/29/2021 6:39 AM EDT 12/29/2021 6:39 AM EDT Narrative [facility] - 12/29/2021 10:58 AM EDT The positive predictive value of this antibody test varies with the prevalence of Hepatitis C virus. Clinical confirmation of Hepatitis C using a qualitative Hepatitis C RNA determination may be indicated. [facility] LAB BLOOD ORDERABLES Final Re sult [facility] [address] [place] [address], [place] * Glucose, random (12/26/2021 4:19 AM EDT) [facility] Glucose 100 70 - 139 mg/dL 12/26/2021 5:30 AM EDT [facility] Fasting? Unknown 12/26/2021 5:30 AM EDT [facility] Blood Venous blood specimen / Unknown Venipuncture / Unknown 12/26/2021 4:19 AM EDT 12/26/2021 4:36 AM EDT us Cheo Cannon MD LAB BLOOD ORDERABLES Final Result Performing Organization Address City/[facility]/ZIP Co de Phone Number [facility] [address] [place] [address], * Lipid panel (12/15/2021 4:25 AM EDT) Triglycerides 62 <=150 mg/dL 12/15/2021 2:09 PM EDT [facility] Cholesterol 123 <=200 mg/dL 12/15/2021 2:09 PM EDT [facility] HDL cholesterol 42 >=40 mg/dL 2:09 PM EDT [facility] LDL cholesterol, calculated 69 0 - 130 mg/dL 12/15/2021 2:09 PM EDT [facility] Cholesterol/HDL Ratio 2.9 12/15/2021 2:09 PM EDT [facility] Blood Venous blood specimen / Unknown Venipuncture / Unknown 12/15/2021 4:25 AM EDT 12/15/2021 5:31 AM EDT us Pritesh Salinas MD LAB BLOOD ORDERABLES Final Re sult Performing Organization Address City/[facility] Co de Phone Number [facility] [address] [place] [address], from Last 3 Months or Most Recently Relevant to Health Maintenance Insurance MEDICARE PART A AND B MEDICAID STANDARD [employer] SKILLED NURSING OPTIONS Advance Directives Documents on File Type Date Recorded Patient Market Research Coordinator Expl anation Health Care Proxy 06/27/2021 8:07 AM Conve [facility] Healthcare Proxy ([facility] Soarian DM) Health Care Proxy 06/18/2021 3:10 PM Conve [facility] Healthcare Proxy ([facility] Soarian DM) Advance Directives and Living Will 12/16/2021 Health Care Proxy * Full Code (Latest Code Status on File) Date Activated Date Inactivated Comments 12/21/2021 9:39 PM 01/01/2022 4:30 PM * Full Code Date Activated Date Inactivated Comments 12/14/2021 6:44 PM 12/21/2021 9:39 PM Care Teams Brush Filler Hand Relationship Specialty Start Date End Date Barbara Valdivia MD [address] [place] [address] PCP - General 06/04/21 Young Ramirez MD [address] [place] [address] Asphalt Spreader Cardiology 12/21/21
--- OUTSIDE RECORDS SUMMARY | 2025-03-31 10:54 | XMS_ITS | Clinical Summary ---
Author Organization [facility] Address [address] [place] [address] Phone Care Team Providers Care Technology Instructor Name Role Phone Barbara Peterson MD Primary Care Provider [phone] Allergies No known active allergies Medications atenoloL [...] mmol/L LAB CHEMISTRY METHOD 09/01/2024 7:02 AM [facility] Potassium 4.3 3.5 - 5.5 mmol/L LAB CHEMISTRY METHOD 09/01/2024 7:02 AM [facility] Chloride 104 96 - 110 mmol/L LAB CHEMISTRY METHOD 09/01/2024 7:02 AM [facility] CO2 29 21 - 32 mmol/L LAB CHEMISTRY METHOD 09/01/2024 7:02 AM [facility] Anion Gap 5 3 - 11 LAB CHEMISTRY METHOD 09/01/2024 7:[facility] Glucose 110(H) 70 - 100 mg/dL LAB CHEMISTRY METHOD 09/01/2024 7:02 AM [facility] BUN 15 5 - 25 mg/dL LAB CHEMISTRY METHOD 09/01/2024 7:02 AM [facility] Creatinine 0.91 0.70 - 1.30 mg/dL LAB CHEMISTRY METHOD 09/01/2024 7:02 AM [facility] eGFR 92 >=60 mL/min/1. 73m2 LAB CHEMISTRY METHOD 09/01/2024 7:02 AM [facility] Comment:Calculation based on the Chronic Kidney Disease Epidemiology Collaboration (CKD-EPI) equation refit without adjustment for race. BUN/Creatinine Ratio 16.5 LAB CHEMISTRY METHOD 09/01/2024 7:02 AM [facility] Calcium 9.2 8.5 - 10.5 mg/dL LAB CHEMISTRY METHOD 09/01/2024 7:02 AM [facility] Blood Venous blood specimen / Unknown Venipuncture / Unknown 09/01/2024 5:54 AM EDT 09/01/2024 6:07 AM EDT us Willam Jovel MD LAB BLOOD ORDERABLES Final Res ult [facility] [address] [place] [address], * Lipid panel with reflex to direct LDL (08/31/2024 8:36 AM EDT) Cholesterol 127 0 - 200 mg/dL LAB CHEMISTRY METHOD 08/31/2024 2:25 PM [facility] Triglycerides 117 0 - 150 mg/dL LAB CHEMISTRY METHOD 08/31/2024 2:25 PM [facility] HDL 61 >=40 mg/dL LAB CHEMISTRY METHOD 08/31/2024 2:25 PM EDT [facility] LDL Calculated 43 0 - 100 mg/dL LAB CHEMISTRY METHOD 08/31/2024 2:25 PM EDT [facility] VLDL Cholesterol Darren 23.4 mg/dL LAB CHEMISTRY METHOD 08/31/2024 2:25 PM EDT [facility] Non HDL Chol. (LDL+VLDL) 66 <145 mg/dL LAB CHEMISTRY METHOD 08/31/2024 2:25 PM EDT [facility] Chol/HDL Ratio 2.1 0.0 - 4.4 LAB CHEMISTRY METHOD 08/31/2024 2:25 PM EDT [facility] Blood Venous blood specimen / Unknown Venipuncture / Unknown 08/31/2024 8:36 AM EDT 08/31/2024 9:04 AM EDT us Willam Jovel MD LAB BLOOD ORDERABLES Final Res ult [facility] [address] [place] [address], from Last 3 Months or Most Recently Relevant to Health Maintenance Insurance [facility] Member Subscriber Plan / Payer (Ef fective 2022-Present) Name:Andres Weiss Relation to Subscriber:Self Name:Andres Weiss Payer ID:[id number] Group ID:[id number] Type:Not on file Address: [address] [facility] [place] [id number] [facility] MEDICARE Member Subscriber Plan / Payer (Ef fective 2022-Present) Name:Andres Weiss Relation to Subscriber:Self Name:Andres Weiss Payer ID:[id number] Group ID:[id number] Type:Not on file Address: [address] [place] [phone] Advance Directives * Full Code - Default [...] currently active code status orders. Care Teams Technology Instructor Relationship Specialty Start Date End Date Barbara Peterson MD [address] [place] [address] , [address] Physician Associ D/B/A: [facility] JASEN Perez PCP - General Internal Medicine 08/31/24
--- OUTSIDE RECORDS SUMMARY | 2025-03-31 10:54 | XMS_ITS | Encounter Summary ---
Author Organization [facility] Address [address] [facility] [address] [place] [address] Care Team Providers Care Lead Housekeeper Name Role Phone Barbara Valdivia MD Primary Care Provider [phone] Young Ramirez MD Unavailable [phone] Reason for Visit * Reason Comments Med Refill Encounter Details Date Type Department Care Team (Late st Contact Info) Description 06/20/2023 Refill [facility] Medical Surgical Unit [address] [place] [id number] Tunde Urias, [place]AC[place] 800 [facility] [address] [place] [address] Severe mitral regurgitation Social History Tobacco Use [...] regurgitation documented in this encounter Care Teams Lead Housekeeper Relationship Specialty Start Date End Date Barbara Valdivia MD [address] [place] [address] PCP - General 06/04/21 Young Ramirez MD [address] 3rd [place] [address] Senior Technical Support Engineer Cardiology 12/21/21 documented as of this encounter
--- OUTSIDE RECORDS SUMMARY | 2025-03-31 10:54 | XMS_ITS | Encounter Summary ---
Author Organization [facility] Address [address] [facility] [address] [place] [address] Care Team Providers Care Regulatory Submissions Associate Name Role Phone Barbara Valdivia MD Primary Care Provider [phone] Young Ramirez MD Unavailable [phone] Reason for Visit * Reason Comments Med Refill Encounter Details Date Type Department Care Team (Late st Contact Info) Description 12/16/2022 Refill [facility] Medical Surgical Unit [address] [place] [id number] Tunde Urias, FLACO 800 [facility] [address] [place] [address] Severe mitral regurgitation Social History Tobacco Use [...] regurgitation documented in this encounter Care Teams Regulatory Submissions Associate Relationship Specialty Start Date End Date Barbara Valdivia MD [address] [place] [address] PCP - General 06/04/21 Young Ramirez MD [address] 3rd [place] [address] Account Services Representative Cardiology 12/21/21 documented as of this encounter
== END 2025-03-31 09:43 | disposition home or self-care (01) ==
LOC: HO.HPODS 09:12
PROVIDERS: PCP Internal Medicine; Visit Provider Student in an Organized Health Care Education/Training Program
DX: M72.2 Plantar fascial fibromatosis (principal); M77.31 Calcaneal spur, right foot
CPT/HCPCS: 99213

== ENCOUNTER → 2025-03-31 09:12 | Outpatient (BNVA) | payer OTHER, SELFPAY | PROVIDERS: PCP Internal Medicine; Visit Provider Student in an Organized Health Care Education/Training Program | DX: M72.2 Plantar fascial fibromatosis (principal); M77.31 Calcaneal spur, right foot | CPT/HCPCS: 99212 ==

== ENCOUNTER 2025-04-02 11:22 | Outpatient (REF) | payer OTHER, SELFPAY ==
--- OUTSIDE RECORDS SUMMARY | 2025-04-01 23:59 | XMS_ITS | Continuity of Care Document ---
Author Organization [facility] ter Address [address] [place] [address] Care Team Providers Care Pulper Name Role Phone Aravind Peterson MD, Barbara Malcolm Primary Care Physician [phone] Encounter 03/31/25 - 04/01/[address] [address]- Attending Physician: Not on Staff, Attending MD Referring Physician: Jian Russo MD Encounter Type: [facility] Allergies, Adverse Reactions, Alerts No Known Allergies Medications acetaminophen-oxyCODONE 325 mg-5 mg oral tablet 1, tablet, By Mouth, Every 12 hours, PRN, as needed for pain Start Date: 03/03/17 Status: Ordered Medication Dispense Status: Completed Total Allowed Fills: 1 Fills Dispensed: 0 Advair Diskus 100 mcg-50 mcg inhalation powder 1, puffs, Inhalation, 2 times a day Start Date: 03/03/17 Status: Ordered Medication Dispense Status: Completed Total Allowed Fills: 1 Fills Dispensed: 0 apixaban 5 mg oral tablet 1 tablet = 5 mg, By Mouth, 2 times a day, # 60 tablet, 0 Refills, Maintenance, 10/01/19 3:01:00 PM EDT, Tablet Start Date: 10/01/19 Status: Ordered Medication Dispense Status: Completed Quantity: 60.0 Unit: tablet Total Allowed Fills: 1 Fills Dispensed: 0 aspirin 81 mg oral delayed release tablet 81 mg, 1, tablet, By Mouth, Daily, # 30 tablet, Refills 0, Tot. Refills 0, Maintenance, 03/04/17 1:35:00 PM EDT, Route to Pharmacy Electronically, [facility]/pharmacy #[id number] Start Date: 03/04/17 Stop Date: 04/03/17 Status: Ordered Medication Dispense Status: Completed Quantity: 30.0 Unit: tablet Total Allowed Fills: 1 Fills Dispensed: 0 Atenolol = 25 mg, By Mouth, Daily, 0 Refills, Maintenance, 05/12/16 9:31:43 AM EST Start Date: 05/12/16 Status: Ordered Medication Dispense Status: Completed Total Allowed Fills: 1 Fills Dispensed: 0 atorvastatin 40 mg oral tablet 1 tablet = 40 mg, By Mouth, Daily at bedtime, # 30 tablet, 2 Refills, Maintenance, Tablet, Route toPharmacy Electronically, [id number], [facility]/pharmacy #[id number] Start Date: 03/04/17 Stop Date: 06/02/17 Status: Ordered Medication Dispense Status: Completed Quantity: 30.0 Unit: tablet Total Allowed Fills: 3 Fills Dispensed: 0 bicalutamide 50 mg oral tablet 1 tablet = 50 mg, By Mouth, Every 24 hours Start Date: 03/03/17 Status: Ordered Medication Dispense Status: Completed Total Allowed Fills: 1 Fills Dispensed: 0 finasteride 5 mg oral tablet 1 tablet = 5 mg, By Mouth, Daily, # 90 tablet, 0 Refills, Maintenance, 12/14/21 1:17:00 PM EDT, Tablet, Partial fill upon patient request if the prescription is for a schedule II opioid drug. Start Date: 12/14/21 Status: Ordered Medication Dispense Status: Completed Quantity: 90.0 Unit: tablet Total Allowed Fills: 1 Fills Dispensed: 0 HydroCHLOROthiazide Tablet 25 mg, By Mouth, Daily, Maintenance, 04/09/14 9:32:21 PM EST Start Date: 04/09/14 Status: Ordered Medication Dispense Status: Completed Total Allowed Fills: 1 Fills Dispensed: 0 ProAir HFA 90 mcg/inh inhalation aerosol with adapter 2, puffs, Inhalation, 4 times a day, PRN Start Date: 03/03/17 Status: Ordered Medication Dispense Status: Completed Total Allowed Fills: 1 Fills Dispensed: 0 verapamil 120 mg oral tablet 1 tablet = 120 mg, By Mouth, 3 times a day Start Date: 03/03/17 Status: Ordered Medication Dispense Status: Completed Total Allowed Fills: 1 Fills Dispensed: 0 Problem List Condition Confirmation Course Effective Dates Status H ealth Status Informant Asthma Confirmed Active Atrial fibrillation Confirmed Active Back pain Confirmed Active aHTN (hypertension) Confirmed Active Hypertrophic cardiomyopathy Confirmed Active Mitral regurgitation Confirmed Active Severe obesity Confirmed Active TIA (transient ischemic attack) Confirmed Active Ventricular tachycardia Confirmed Active Social History Social History Type Response Smoking Status Never (less than 100 in lifetime) entered on: 06/12/19 Sex Sex Representation Male (finding) Patient Care team information Care Team Personnel Name: Sakshi Lee RN Position: [facility] JEFF Office Staff Member Role: Primary Care Nurse Name: Judy Griffin RN Position: [facility] RN Member Role: Primary Care Nurse Name: Krystina Stephenson RN Position: [facility] RN Member Role: Primary Care Nurse Name: Aravind Peterson MD , Barbara Malcolm Position: Reference Physician Member Role: PCP Address: [address] [place] [address] Telecom: Name: [place] RN Position: [facility] RN Member Role: Primary Care Nurse Care Team Related Persons Name: MANA FLOOD Insurance Providers Guarantor name: DEYANIRA Health Plan Information #: 1 Payer: MEDICARE B Payer Identifier: DEYANIRA Member Number: [id number] Group Number: [id number] Subscriber Identifier: DEYANIRA Relationship to Subscriber: self Coverage Type: NA Coverage Verification Date: Telecom: Address:
[2025-04-02 12:36] LABS: Prostate Specific Antigen 14.86 ng/mL (<0.05-4.0)
--- OUTSIDE RECORDS SUMMARY | 2025-04-02 13:42 | XMS_ITS | Clinical Summary ---
Author Organization [facility] Address [address] [place] [address] Phone Care Team Providers Care Machine Maintenance Repairer Name Role Phone Barbara Peterson MD Primary Care Provider [phone] Allergies No known active allergies Medications atenoloL [...] mmol/L LAB CHEMISTRY METHOD 09/01/2024 7:02 AM [facility] Potassium 4.3 3.5 - 5.5 mmol/L LAB CHEMISTRY METHOD 09/01/2024 7:02 AM [facility] Chloride 104 96 - 110 mmol/L LAB CHEMISTRY METHOD 09/01/2024 7:02 AM [facility] CO2 29 21 - 32 mmol/L LAB CHEMISTRY METHOD 09/01/2024 7:02 AM [facility] Anion Gap 5 3 - 11 LAB [facility] Glucose 110(H) 70 - 100 mg/dL LAB CHEMISTRY METHOD 09/01/2024 7:02 AM [facility] BUN 15 5 - 25 mg/dL LAB CHEMISTRY METHOD 09/01/2024 7:02 AM [facility] Creatinine 0.91 0.70 - 1.30 mg/dL LAB CHEMISTRY METHOD 09/01/2024 7:02 AM [facility] eGFR 92 >=60 mL/min/1. 73m2 LAB CHEMISTRY METHOD 09/01/2024 7:02 AM [facility] Comment:Calculation based on the Chronic Kidney Disease Epidemiology Collaboration (CKD-EPI) equation refit without adjustment for race. BUN/Creatinine Ratio 16.5 LAB CHEMISTRY METHOD 09/01/2024 7:02 AM [facility] Calcium 9.2 8.5 - 10.5 mg/dL LAB CHEMISTRY METHOD 09/01/2024 7:02 AM [facility] Blood Venous blood specimen / Unknown Venipuncture / Unknown 09/01/2024 5:54 AM EDT 09/01/2024 6:07 AM EDT us Willam Jovel MD LAB BLOOD ORDERABLES Final Res ult [facility] [address] [place] [address], * Lipid panel with reflex to direct LDL (08/31/2024 8:36 AM EDT) Cholesterol 127 0 - 200 mg/dL LAB CHEMISTRY METHOD 08/31/2024 2:25 PM [facility] Triglycerides 117 0 - 150 mg/dL LAB CHEMISTRY METHOD 08/31/2024 2:25 PM [facility] HDL 61 >=40 mg/dL LAB CHEMISTRY METHOD 08/31/2024 2:25 PM EDT [facility] LDL Calculated 43 0 - 100 mg/dL LAB CHEMISTRY METHOD 08/31/2024 2:25 PM EDT [facility] VLDL Cholesterol Darren 23.4 mg/dL LAB CHEMISTRY METHOD 08/31/2024 2:25 PM EDT [facility] Non HDL Chol. (LDL+VLDL) 66 <145 mg/dL LAB CHEMISTRY METHOD 08/31/2024 2:25 PM EDT [facility] Chol/HDL Ratio 2.1 0.0 - 4.4 LAB CHEMISTRY METHOD 08/31/2024 2:25 PM EDT [facility] Blood Venous blood specimen / Unknown Venipuncture / Unknown 08/31/2024 8:36 AM EDT 08/31/2024 9:04 AM EDT us Willam Jovel MD LAB BLOOD ORDERABLES Final Res ult [facility] [address] [place] [address], from Last 3 Months or Most Recently Relevant to Health Maintenance Insurance [facility] Member Subscriber Plan / Payer (Ef fective 2022-Present) Name:Andres Weiss Relation to Subscriber:Self Name:Andres Weiss Payer ID:[id number] Group ID:[id number] Type:Not on file Address: [address] [facility] [place] [id number] [facility] MEDICARE Member Subscriber Plan / Payer (Ef fective 2022-Present) Name:Andres Weiss Relation to Subscriber:Self Name:Andres Weiss Payer ID:[id number] Group ID:[id number] Type:Not on file Address: [address] [place] [id number] Advance Directives * Full Code - Default [...] currently active code status orders. Care Teams Machine Maintenance Repairer Relationship Specialty Start Date End Date Barbara Peterson MD [address] [place] [address] , [address] Physician Associ D/B/A: [facility] JASEN Perez PCP - General Internal Medicine 08/31/24
== END 2025-04-02 11:23 | disposition home or self-care (01) ==
LOC: HO.LAB 11:22
PROVIDERS: PCP Internal Medicine; Visit Provider Urology
DX: C61 Malignant neoplasm of prostate (principal); C77.2 Secondary and unspecified malignant neoplasm of intra-abdominal lymph nodes; Z12.5 Encounter for screening for malignant neoplasm of prostate
CPT/HCPCS: 36415; 84153; 84403

== ENCOUNTER 2025-04-11 10:16 | Outpatient (AMB) | payer OTHER, SELFPAY ==
[2025-04-11 10:26] LABS: Prothrombin Time Whole Bld POC 23.2 sec (11.1-13.5); ~PT, ~INR - Anti Coag Clinic 1.9 (0.9-1.1)
--- NOTE | 2025-04-11 10:34 | MHC.OFFVISCO ---
Intake Intake Visit Reasons: Anticoagulation Allergies No Known Allergies (No Known Allergies*) Allergy (Verified 04/11/25 10:22) Medication List - Last Reconciled 04/11/25 by Brissa Daniels RN acetaminophen 650 mg PO Q6H PRN atenolol 50 mg PO DAILY atorvastatin 40 mg PO BEDTIME [compression stockings knee-high 20 mmHg] darolutamide (Nubeqa) 300 mg PO BID furosemide 40 mg PO QAM lactulose 15 mL PO DAILY lisinopril 20 mg PO DAILY 90 days oxycodone-acetaminophen 5-325 mg 1 tab PO Q12H PRN 30 days potassium chloride ER (Klor-Con M) 20 mEq PO QAM warfarin 5 mg See Protocol PO DAILY 90 days Nursing Note INR: 1.9 out of therapeutic range of 2.5-3.0 Pt denies missed dose. Possibly low due to pt having green tea. Medications and supplements reviewed Patient status: feels well Medications or supplements: no changes Diet: no changes Denies any signs and symptoms of bleeding or clotting or unusual bruising Bleeding, bruising, clotting discussed Nutritional guidance given: to avoid greens X 2 days and to have a serving of foods that raise the INR X 2 days. Food list reviewed. Pt says he will have grapes and cashews. Dose: increase today's dose from 5mg to 7.5mg then 5mg daily F/U INR Date: 04/16/25?? Patient verbalizing understanding of instructions given. T/C to pcp Dr Nazario's office. Spoke to Camille. Reported critical result with dosing plan and next retest date. Anti-Coag Initial Assessment Social Hx Patient Tobacco Use Status: Never used Tobacco alcohol intake: current Alcohol intake frequency: holidays/special occasions only Cardiovascular Hx: HTN, Arrhythmias and Cardiomyopathy Musculoskeletal Hx: Other Blood Disorder Hx: Hyperlipidemia Hx: Prostate Neurological Hx: Stroke/TIA Cancer HX: Yes (prostate) Psych. Illness/Depression: No Coding Level of Care Code Est Patient Level 1 Diagnoses Current use of anticoagulant therapy Z79.01 Results AMB INR Fingerstick AMB INR Fingerstick 1.9 Last Edit by Brissa Daniels RN on 04/11/25 10:31 interface delay Assessment & Plan Assessment & Plan (1) Current use of anticoagulant therapy: Code(s): Z79.01 - shelter (current) use of anticoagulants Category: Medical
== END 2025-04-11 11:33 | disposition home or self-care (01) ==
LOC: HO.ACS 10:16
PROVIDERS: PCP Internal Medicine; Visit Provider Internal Medicine Medical Oncology
DX: Z79.01 Long term (current) use of anticoagulants (principal)

== ENCOUNTER → 2025-04-11 10:16 | Outpatient (BNVA) | payer OTHER, SELFPAY | PROVIDERS: PCP Internal Medicine; Visit Provider Internal Medicine Medical Oncology | DX: Z95.2 Presence of prosthetic heart valve (principal); Z51.81 Encounter for therapeutic drug level monitoring; Z79.01 Long term (current) use of anticoagulants | CPT/HCPCS: 85610; 99211 ==

== ENCOUNTER 2025-04-16 11:21 | Outpatient (AMB) | payer OTHER, SELFPAY ==
[2025-04-16 11:33] LABS: Prothrombin Time Whole Bld POC 47.8 sec (11.1-13.5); ~PT, ~INR - Anti Coag Clinic 4.0 (0.9-1.1)
--- NOTE | 2025-04-16 11:36 | MHC.OFFVISCO ---
Intake Intake Visit Reasons: Anticoagulation Allergies No Known Allergies (No Known Allergies*) Allergy (Verified 04/16/25 11:28) Medication List - Last Reconciled 04/16/25 by Corrie Flores RN acetaminophen 650 mg PO Q6H PRN atenolol 50 mg PO DAILY atorvastatin 40 mg PO BEDTIME [compression stockings knee-high 20 mmHg] darolutamide (Nubeqa) 300 mg PO BID furosemide 40 mg PO QAM lactulose 15 mL PO DAILY lisinopril 20 mg PO DAILY 90 days oxycodone-acetaminophen 5-325 mg 1 tab PO Q12H PRN 30 days potassium chloride ER (Klor-Con M) 20 mEq PO QAM warfarin 5 mg See Protocol PO DAILY 90 days Nursing Note PT.HAS EATEN VERY LARGE AMOUNTS OF GRAPES THIS WEEK WHICH IS LIKELY THE CAUSE OF ELEVATED INR TODAY HOLD WARFARIN TODAY THEN RESUME USUAL 5MGM DAILY AND FOLLOW-UP IN 1 WEEK GOOD UNDERSTANDING OF DOSING INSTR. Anti-Coag Initial Assessment Social Hx Patient Tobacco Use Status: Never used Tobacco alcohol intake: current Alcohol intake frequency: holidays/special occasions only Cardiovascular Hx: HTN, Arrhythmias and Cardiomyopathy Musculoskeletal Hx: Other Blood Disorder Hx: Hyperlipidemia Hx: Prostate Neurological Hx: Stroke/TIA Cancer HX: Yes (prostate) Psych. Illness/Depression: No Coding Level of Care Code Est Patient Level 1 Diagnoses Current use of anticoagulant therapy Z79.01 Assessment & Plan Assessment & Plan (1) Current use of anticoagulant therapy: Code(s): Z79.01 - senior living (current) use of anticoagulants Category: Medical
--- OUTSIDE RECORDS SUMMARY | 2025-04-16 15:04 | XMS_ITS | Encounter Summary ---
Author Organization [facility] Address [address] [facility] [address] [place] [address] Care Team Providers Care Deployment Specialist Name Role Phone Barbara Valdivia MD Primary Care Provider [phone] Young Ramirez MD Unavailable [phone] Reason for Visit * Reason Comments Med Refill Encounter Details Date Type Department Care Team (Late st Contact Info) Description 12/16/2022 Refill [facility] Medical Surgical Unit [address] [place] [id number] Tunde Urias, [place] [address] [facility] [address] [place] [address] Severe mitral regurgitation Social History Tobacco Use [...] regurgitation documented in this encounter Care Teams Deployment Specialist Relationship Specialty Start Date End Date Barbara Valdivia MD [address] [place] [address] PCP - General 06/04/21 Young Ramirez MD [address] 3rd [place] [address] Promotion Producer Cardiology 12/21/21 documented as of this encounter
--- OUTSIDE RECORDS SUMMARY | 2025-04-16 15:04 | XMS_ITS | Encounter Summary ---
Author Organization [facility] Address [address] [facility] [address] [place] [address] Care Team Providers Care Information Resources Manager Name Role Phone Barbara Valdivia MD Primary Care Provider [phone] Young Ramirez MD Unavailable Reason for Visit * Reason Comments Med Refill Encounter Details Date Type Department Care Team (Late st Contact Info) Description 01/21/2022 Refill [facility] Medical Surgical Unit [address] [place] [phone] Tunde Urias, FLACO [address] [facility] [address] [place] [address] Severe mitral regurgitation Social History Tobacco Use [...] regurgitation documented in this encounter Care Teams Information Resources Manager Relationship Specialty Start Date End Date Barbara Valdivia MD [address] [place] [address] PCP - General 06/04/21 Young Ramirez MD [address] 3rd [place] [address] Hinging Machine Operator Cardiology 12/21/21 documented as of this encounter
--- OUTSIDE RECORDS SUMMARY | 2025-04-16 15:04 | XMS_ITS | Clinical Summary ---
Author Organization [facility] Address [address] [facility] [place] [address] Care Team Providers Care Pigment And Lacquer Mixer Name Role Phone Barbara Valdivia MD Primary Care Provider [phone] Young Ramirez MD Unavailable Allergies No known active allergies Medications finasteride [...] this topic Medical Devices Implanted Type Area Welder Fabricator Device Identifier Shelf Expiration Date Model / Serial / Lot Estimator Jewelry-D Icd BOILER ASSISTANT OPERATOR-D ICD Left: Chest [employer] Unknown [id number] Cardiac Pacemaker [employer] UNKNOWN / [id number] / Band Tri-Ad 2.0 Harper 34mm - [id number] - [id number] Implanted:Qty : 1 on 12/21/2021 by Cheo Cannon MD at [facility] Heart Valve Repair N/A: Chest [employer] PACING 01/25/2026 [id number] / [id number] / Device Ck Cor Knot - Sna - [id number] Implanted:Qty : 1 on 12/21/2021 by Cheo Cannon MD at [facility] Implant N/A: Chest [employer] 08/23/2023 [id number] / NA / Valve On-X Mitral 31/33mm W/St - [id number] - [id number] Implanted:Qty : 1 on 12/21/2021 by Cheo Cannon MD at [facility] Prosthetic Valve N/A: Heart [employer] 05/10/2027 ONXM-31/33 / [id number] / Patch Photofix 0.8x8cm - Sna - [id number] Implanted:Qty : 1 on 12/21/2021 by Cheo Cannon MD at [facility] Vascular Graft N/A: Aorta [employer] 07/25/2023 [id number] / NA / [id number] Procedures Procedure Name Priority Date/Time Associated Diagnosis [...] 1, stool (12/31/2021 11:03 AM EDT) Pathologist [facility] Date I MANUAL METHOD 12/31/2021 11:37 AM EDT [facility] Occult Blood Stool I Positive( A) Negative, No Sample Received MANUAL METHOD 12/31/2021 11:37 AM EDT [facility] Stool Rectal contents / Unknown Non-blood Collection / Unknown 12/31/2021 11:03 AM EDT 12/31/2021 11:07 AM EDT Cheo Cannon MD LAB BODY FLUIDS AND STOOLS ORDERABLES Final Result Performing Organization Address [facility] Co de Phone Number [facility] [address] [place] [address], * Hepatitis C antibody (12/29/2021 6:39 AM EDT) [facility] Hepatitis C antibody Non Reactive Non Reactive [facility] ARCH I2000 3 12/29/2021 10:58 AM EDT [facility] Comment:Antibodies to HCV no t detected; does not exclude the possibility of exposure to HCV. Blood Venous blood specimen / Unknown Venipuncture / Unknown 12/29/2021 6:39 AM EDT 12/29/2021 6:39 AM EDT Narrative [facility] - 12/29/2021 10:58 AM EDT The positive predictive value of this antibody test varies with the prevalence of Hepatitis C virus. Clinical confirmation of Hepatitis C using a qualitative Hepatitis C RNA determination may be indicated. [facility] LAB BLOOD ORDERABLES Final Re sult [facility] [address] [place] [address], [place] * Glucose, random (12/26/2021 4:19 AM EDT) [facility] Glucose 100 70 - 139 mg/dL 12/26/2021 5:30 AM EDT [facility] Fasting? Unknown 12/26/2021 5:30 AM EDT [facility] Blood Venous blood specimen / Unknown Venipuncture / Unknown 12/26/2021 4:19 AM EDT 12/26/2021 4:36 AM EDT us Cheo Cannon MD LAB BLOOD ORDERABLES Final Result Performing Organization Address City/[facility]/ZIP Co de Phone Number [facility] [address] [place] [address], * Lipid panel (12/15/2021 4:25 AM EDT) Triglycerides 62 <=150 mg/dL 12/15/2021 2:09 PM EDT [facility] Cholesterol 123 <=200 mg/dL 12/15/2021 2:09 PM EDT [facility] HDL cholesterol 42 >=40 mg/dL 2:09 PM EDT [facility] LDL cholesterol, calculated 69 0 - 130 mg/dL 12/15/2021 2:09 PM EDT [facility] Cholesterol/HDL Ratio 2.9 12/15/2021 2:09 PM EDT [facility] Blood Venous blood specimen / Unknown Venipuncture / Unknown 12/15/2021 4:25 AM EDT 12/15/2021 5:31 AM EDT us Pritesh Salinas MD LAB BLOOD ORDERABLES Final Re sult Performing Organization Address City/[facility] Co de Phone Number [facility] [address] [place] [address], from Last 3 Months or Most Recently Relevant to Health Maintenance Insurance MEDICARE PART A AND B MEDICAID STANDARD [employer] OPTIONS Advance Directives Documents on File Type Date Recorded Patient Supervisor Sewing Room Expl anation Health Care Proxy 06/27/2021 8:07 AM [facility] Proxy ([facility] Soarian DM) Health Care Proxy 06/18/2021 3:10 PM [facility] Proxy ([facility] Soarian DM) Advance Directives and Living Will 12/16/2021 Health Care Proxy * Full Code (Latest Code Status on File) Date Activated Date Inactivated Comments 12/21/2021 9:39 PM 01/01/2022 4:30 PM * Full Code Date Activated Date Inactivated Comments 12/14/2021 6:44 PM 12/21/2021 9:39 PM Care Teams Pigment And Lacquer Mixer Relationship Specialty Start Date End Date Barbara Valdivia MD [address] [place] [address] PCP - General 06/04/21 Young Ramirez MD [address] [place] [address] Undercoater Cardiology 12/21/21
--- OUTSIDE RECORDS SUMMARY | 2025-04-16 15:04 | XMS_ITS | Encounter Summary ---
Author Organization [facility] Address [address] [facility] [address] [place] [address] Care Team Providers Care Quality Checker Name Role Phone Barbara Valdivia MD Primary Care Provider [phone] Young Ramirez MD Unavailable [phone] Reason for Visit * Reason Comments Med Refill Encounter Details Date Type Department Care Team (Late st Contact Info) Description 06/20/2023 Refill [facility] Medical Surgical Unit [address] [place] [phone] Tunde Urias, FLAC[place] [address] [facility] [address] [place] [address] Severe mitral regurgitation Social History Tobacco Use [...] regurgitation documented in this encounter Care Teams Quality Checker Relationship Specialty Start Date End Date Barbara Valdivia MD [address] [place] [address] PCP - General 06/04/21 Young Ramirez MD [address]rd [place] [address] Clamshell Engineer Cardiology 12/21/21 documented as of this encounter
--- OUTSIDE RECORDS SUMMARY | 2025-04-16 15:04 | XMS_ITS | Encounter Summary ---
Author Organization [facility] Address [address] [facility] [address] [place] [address] Care Team Providers Care Fiberglass Machine Operator Name Role Phone Barbara Valdivia MD Primary Care Provider [phone] Young Ramirez MD Unavailable Reason for Visit * Reason Comments Med Refill Encounter Details Date Type Department Care Team (Late st Contact Info) Description 12/19/2022 Refill [facility] Medical Surgical Unit [address] [place] [phone] Tunde Urias, [place] [address] [facility] [address] [place] [address] Severe mitral regurgitation Social History Tobacco Use [...] regurgitation documented in this encounter Care Teams Fiberglass Machine Operator Relationship Specialty Start Date End Date Barbara Valdivia MD [address] [place] [address] PCP - General 06/04/21 Young Ramirez MD [address] 3rd [place] [address] Electronics Teacher Cardiology 12/21/21 documented as of this encounter
--- OUTSIDE RECORDS SUMMARY | 2025-04-16 15:04 | XMS_ITS | Clinical Summary ---
Author Organization [facility] Address [address] [place] [address] Phone Care Team Providers Care Automotive Artist Name Role Phone Barbara Peterson MD Primary Care Provider [phone] Allergies No known active allergies Medications atenoloL [...] on file Sexual Orientation Not on file Last Filed [...] mmol/L LAB CHEMISTRY METHOD 09/01/2024 7:[address] [facility] Potassium 4.3 3.5 - 5.5 mmol/L LAB CHEMISTRY METHOD 09/01/2024 7:[address] [facility] Chloride 104 96 - 110 mmol/L LAB CHEMISTRY METHOD 09/01/2024 7:[address] [facility] CO2 29 21 - 32 mmol/L LAB CHEMISTRY METHOD 09/01/2024 7:[address] [facility] Anion Gap 5 3 - 11 LAB CHEMISTRY METHOD 09/01/2024 7:[address] [facility] Glucose 110(H) 70 - 100 mg/dL LAB CHEMISTRY METHOD 09/01/2024 7:02 AM EDT [facility] BUN 15 5 - 25 mg/dL LAB CHEMISTRY METHOD 09/01/2024 7:[address] [facility] Creatinine 0.91 0.70 - 1.30 mg/dL LAB CHEMISTRY METHOD 09/01/2024 7:02 AM EDT [facility] eGFR 92 >=60 mL/min/1. 73m2 LAB CHEMISTRY METHOD 09/01/2024 7:[address] [facility] Comment:Calculation based on the Chronic Kidney Disease Epidemiology Collaboration (CKD-EPI) equation refit without adjustment for race. BUN/Creatinine Ratio 16.5 LAB CHEMISTRY METHOD 09/01/2024 7:[address] [facility] Calcium 9.2 8.5 - 10.5 mg/dL LAB CHEMISTRY METHOD 09/01/2024 7:02 AM T [facility] Blood Venous blood specimen / Unknown Venipuncture / Unknown 09/01/2024 5:54 AM EDT 09/01/2024 6:07 AM EDT us Willam Jovel MD LAB BLOOD ORDERABLES Final Res ult [facility] [address] [place] [address], * Lipid panel with reflex to direct LDL (08/31/2024 8:36 AM EDT) Cholesterol 127 0 - 200 mg/dL LAB CHEMISTRY METHOD 08/31/2024 2:25 PM EDT [facility] Triglycerides 117 0 - 150 mg/dL LAB CHEMISTRY METHOD 08/31/2024 2:25 PM T [facility] HDL 61 >=40 mg/dL LAB CHEMISTRY METHOD 08/31/2024 2:25 PM EDT [facility] LDL Calculated 43 0 - 100 mg/dL LAB CHEMISTRY METHOD 08/31/2024 2:25 PM EDT [facility] VLDL Cholesterol Darren 23.4 mg/dL LAB CHEMISTRY METHOD 08/31/2024 2:25 PM EDT [facility] Non HDL Chol. (LDL+VLDL) 66 <145 mg/dL LAB CHEMISTRY METHOD 08/31/2024 2:25 PM EDT [facility] Chol/HDL Ratio 2.1 0.0 - 4.4 LAB CHEMISTRY METHOD 08/31/2024 2:25 PM EDT [facility] Blood Venous blood specimen / Unknown Venipuncture / Unknown 08/31/2024 8:36 AM EDT 08/31/2024 9:04 AM EDT us Willam Jovel MD LAB BLOOD ORDERABLES Final Res ult [facility] [address] [place] [address], from Last 3 Months or Most Recently Relevant to Health Maintenance Insurance [facility] Member Subscriber Plan / Payer (Ef fective 2022-Present) Name:Andres Weiss Relation to Subscriber:Self Name:Andres Weiss Payer ID:[id number] Group ID:[id number] Type:Not on file Address: [address] [facility] [place] [address] [facility] MEDICARE Member Subscriber Plan / Payer (Ef fective 2022-Present) Name:Andres Weiss Relation to Subscriber:Self Name:Isela, Chepe Payer ID:[id number] Group ID:[id number] Type:Not on file Address: [address] [place] [address] Advance Directives * Full Code - Default [...] currently active code status orders. Care Teams Automotive Artist Relationship Specialty Start Date End Date Barbara Peterson MD [address] [facility] , [address] [place] [address] Physician Associ D/B/A: [facility] JASEN Perez PCP - General Internal Medicine 08/31/24
--- OUTSIDE RECORDS SUMMARY | 2025-04-16 15:04 | XMS_ITS | Encounter Summary ---
Author Organization [facility] Address [address] [facility] [address] [place] [address] Care Team Providers Care Hide Selector Name Role Phone Barbara Valdivia MD Primary Care Provider [phone] Young Ramirez MD Unavailable [phone] Reason for Visit * Reason Comments Med Refill Encounter Details Date Type Department Care Team (Late st Contact Info) Description 06/21/2022 Refill [facility] Medical Surgical Unit [address] [place] [phone] Tunde Urias, FLACO [address] [facility] [address] [place] [address] Severe mitral regurgitation Social History Tobacco Use [...] regurgitation documented in this encounter Care Teams Hide Selector Relationship Specialty Start Date End Date Barbara Valdivia MD [address] [place] [address] PCP - General 06/04/21 Young Ramirez MD [address] 3rd [place] [address] Load Dispatcher Cardiology 12/21/21 documented as of this encounter
== END 2025-04-16 11:42 | disposition home or self-care (01) ==
LOC: HO.ACS 11:21
PROVIDERS: PCP Internal Medicine; Visit Provider Internal Medicine Medical Oncology
DX: Z79.01 Long term (current) use of anticoagulants (principal)

== ENCOUNTER → 2025-04-16 11:21 | Outpatient (BNVA) | payer OTHER, SELFPAY | PROVIDERS: PCP Internal Medicine; Visit Provider Internal Medicine Medical Oncology | DX: Z95.2 Presence of prosthetic heart valve (principal); Z51.81 Encounter for therapeutic drug level monitoring; Z79.01 Long term (current) use of anticoagulants; N52.35 Erectile dysfunction following radiation therapy; C61 Malignant neoplasm of prostate; C77.2 Secondary and unspecified malignant neoplasm of intra-abdominal lymph nodes | CPT/HCPCS: 85610; 99211; 99212 ==

== ENCOUNTER 2025-04-16 13:17 | Outpatient (AMB) | payer OTHER, SELFPAY ==
--- NOTE | 2025-04-16 13:24 | MHC.OFFVIS ---
Intake Visit Reasons: PSMA/PSA/Testosterone Results(set) Intake Note: Reason for Visit: PSMA Results Urology Meds: Nubeqa Blood Thinners: Warfarin Labs: PSA: 14.86 Testo: 10 (04/02/2025) Imaging: PSMA- 03/31/2025 Last PVR: None Medical Insurance Verifier Required: No Accompanied by: Self / Same As Patient Allergies No Known Allergies (No Known Allergies*) Allergy (Verified 04/16/25 13:27) HPI Comments Details: Andres is a very pleasant male. He is a patient of Dr. Peterson. He is seen for the following urologic conditions - prostate cancer - laura recurrence with bony metastatic disease - erectile dysfunction Slowly rising PSA despite GnRH plus antiandrogen Recent PET-CT with medial focal osseous disease T6, T7 and ribs - load is increasing Recommend assessment for ELIEL 177 Referral provided Otherwise three-month follow-up lab work 04/24 PSA 14.8 T 10 darolutamide. PET-CT multi focal osseous disease particularly axial spine, ribs - increasing in load 03/25 GnRH 12/23 PSA 8.8 T 8 darolutamide. Bone DEXA normal. 09/22 [facility] today, on darolutamide. 06/25 PSA 9 T 9 04/23 PSA 7.4 T 11 Bone scan result pending - left rib maintains activity Add antiandrogen 3m f/u labs 01/22 PSA 7.1 T 177 Restart [facility] 09/21 PSA 3.8 PET-CT - complete resolution of PSMA avid pelvic lymphadenopathy, new left rib activity PSMA avid right internal iliac and presacral lymphadenopathy present at several sites on the 07/27/2021 prior study are not present on the current study 11/20 - PSA <0.1, T1 23 Restart tadalafil 10 mg daily 01/20 mitral valve prolapse with replacement at [facility] - dislodged mitral clip into right ostia Prostate cancer: [facility] 4 + 4, group 4, XRT with hormones 2016 - recurrence 2021 pelvic laura with focal XRT and hormones 09/19 PET-CT scan shows positive laura disease along pelvic and retroperitoneal wall Radiation boost therapy with Dr. Walters at [facility] and 6m hormones Prostate cancer was diagnosed 03/2016 Dr Russo. Diagnosis was reached by needle biopsy, for elevated PSA, PSA at diagnosis 34. The Luis Enrique grade is 9/12 cores , 4+4 = 8 and , 4+3 = 7 > 40% in all cores. TNM Classification of Malignant Tumours (TNM) T2b. The D'Ankit (NCCN) risk category is High Risk (PSA > 20, Gl 8+, T3) - MSK nomagram pre treatment - 3% OCD, 95% FIDELINA, 70% LNI. Initial therapy included Primary treatment - bicalutamide, hormones 05/05/16 - GnRH , External beam radiation with short term hormonal ablation complete 10/15 - [facility] Recent labs included a PSA (prostate-specific antigen) 05/17 on bicalutamide only - 4.6, T 272 07/15 a PSA (prostate-specific antigen) 0.18, T 12 02/14 , a PSA (prostate-specific antigen) 0.22, , T 12 07/16 PSA 0.2, 10/16 PSA 0.15, 02/15 PSA 0.15 T 193 07/17 PSA 0.5 T 245, 01/17 PSA 1.2 T 260 05/20 0.5 T 240, 10/18 1.7 - 03/20 1.9 - 06/21 1.4, 12/19 2.4, 03/21 2.5, 07/20 4.3, 09/19 3.5, 05/23 <0.1 Recent imaging included 04/15 , a CT (computed tomography) scan - pelvic node 04/15 , a bone scan - negative 07/15 , a DEXA scan - normal. - 07/[address] with laura disease along pelvic basin to retroperitoneal wall PFSH Medical History Prostate cancer Seroma after procedure Peripheral vascular disease Poor circulation Leg edema Morbid obesity Opiate dependence AXEL (obstructive sleep apnea) Lumbar degenerative disc disease PAF (paroxysmal atrial fibrillation) Essential hypertension History of stroke Paroxysmal atrial flutter Ventricular tachyarrhythmia Hypertrophic cardiomyopathy Surgical History H/O colonoscopy Status post aorto-coronary artery bypass graft Status post mitral valve replacement Status post implantation of mitral valve leaflet clip History of cardiac pacemaker (~03/2014) History of cardiac catheterization Family History Father Diabetes Mother No problems noted. Social History Housing: Apartment Alcohol intake: current Alcohol intake frequency: holidays/special occasions only Alcohol type: hard liquor Patient Tobacco Use Status: Never used Tobacco e-Cigarette/Vaping Use: Never Used Second Hand Smoke Exposure: No service: No Current occupational status: unemployed Cognitive needs: Yes Hearing needs: No Vision needs: Yes Review of Systems Const Denies chills and Denies fever(s) Card Reports no additional complaints and Denies syncope Resp Denies cough GI Denies abdominal pain and Denies heartburn Reports as per HPI and Denies change in libido Neuro Denies syncope Psych Denies change in libido Endo Denies change in libido Physical Exam Const General: cooperative, healthy appearing, comfortable and no acute distress Orientation/consciousness: patient oriented x3 HEENT Face and sinus: Yes normal facial exam Mouth: moist mucous membranes Neck Neck: Yes normal visual inspection, Yes full ROM and Yes trachea midline Chest Chest palpation & inspection: normal inspection of the chest Resp Effort & Inspection: normal respiratory effort, able to speak in complete sentences and no respiratory distress GI Inspection: Yes normal to inspection Back/Spine/Pelvis Cervical Spine: normal cervical lordosis Thoracic/Lumbar Spine: thoracic and lumbar spine normal to inspection Skin General skin exam: no rashes or lesions noted Neuro General: patient oriented x3, gait normal, tone normal and moves all extremities Extrem General: Yes normal to inspection and Yes capillary refill normal Assessment & Plan Assessment & Plan (1) Erectile dysfunction due to and not concurrent with radiation therapy: Code(s): N52.35 - Erectile dysfunction following radiation therapy Category: Medical (2) Prostate cancer metastatic to intraabdominal lymph node: Code(s): C61 - Malignant neoplasm of prostate; C77.2 - Secondary and unspecified malignant neoplasm of intra-abdominal lymph nodes Category: Medical Plan ELIEL 177 assessment Three-month follow-up lab work Patient Instructions: This note is constructed using voice recognition software. While every effort has been made to ensure accuracy driver starting gate errors may have been included. Imaging studies, laboratory and physical exam results were discussed and reviewed in detail. No major barriers to patient understanding were identified. An opportunity to ask questions regarding the treatment plan was provided. All questions were answered. The patient expressed understanding and agreement with the above treatment plan. The patient is aware they should contact our office by phone for worsening of their current condition or the appearance of new urologic symptoms. Compliance is encouraged with any medications and followup testing that is ordered. It is a privilege to participate in the urologic care of your patient. If you have any questions or concerns regarding treatment for the above conditions, or other urologic issues, please do not hesitate to contact me. The office telephone contact is [phone]. Sincerely, Dr Jian Russo MD, [facility] - Urology Compassionate Specialist Care for the Genitourinary System Coding Level of Care Code Est Pt Level 4 (90065) Add On Problem Visit Only Diagnoses Erectile dysfunction due to and not concurrent with radiation therapy N52.35 Prostate cancer metastatic to intraabdominal lymph node C61; C77.2
--- OUTSIDE RECORDS SUMMARY | 2025-04-16 17:27 | XMS_ITS | Data Portability ---
Author Organization [place] [facility] Address [address] [place] [address] Care Team Providers Care Placer Miner Name Role Phone SANGITA REID Primary Care Provider Assessment Encounter Date Assessment Date Assessment LastModified by Organization Details LastModified Time 01/18/2022 01/18/2022 66 YO M patient establishing care with . On 12/14 he had open heart surgery at [facility] the transferred to [facility] facility. His sternotomy surgical incision has healed well. However he has a left medial lower leg surgical incision which is draining clear fluid. He was seen by his regular staffing associate located in [place] Ramirez who did not assess his [...] departure. Time On Scene with Patient: 01:11:41 [email or web address] Not available 01/18/2022 14:37:44 Plan of Treatment [...] By Organization Details Last Modified Time 01/18/2022 [id number] Thank you for yo ur visit with [...] please call [facility] at [phone] to help navigate your care. 3 Not available 01/18/2022 13:18:22 Reason for Referral None Reported. Procedures Surgical History Date Name Laterality Status Provider Name and Address Organization Details Recorded Time open heart surgery completed October FREDO Engel [address], [place], [address], [place] [facility] 01/18/2022 13:26:42 Imaging Results [...] Time Tobacco Smoking Status Never Smoker October, [employer] PREPARATION SUPERVISOR [address], [place], [address], [place] [facility] 01/18/2022 13:24:50 Do You Have An Advance Directive? Yes [email or web address] Information not available 01/18/2022 Is Blood Transfusion Acceptable In An Emergency? Yes [email or web address] Information not available 01/18/2022 What Is Your Code Status? Full Code [email or web address] Information not available 01/18/2022 Within The Past 12 Months, Has It Happened That The Food You Bought Just Didn't Last And You Didn't Have Money To Get More. No [email or web address] Information not available 01/18/2022 Within The Past 12 Months, Have You Worried That Your Food Would Run Out Before You Got Money To Buy More. No [email or web address] Information not available 01/18/2022 Fall Risk: Do You Feel Unsteady When Standing Or Walking? No [email or web address] Information not available 01/18/2022 We Know That How And When People Interact With Friends And Family Can Be Very Different From Person To Person. How Often Do You Have The Opportunity To See Or Talk To People That You Care About And Feel Close To? (Ex: Talking To Friends On The Phone Or Visiting Friends Or Family Or Going To Mandae[employer] Or Club Meetings) Choose Not To Answer This Question [email or web address] Information not available 01/18/2022 Excessive Alcohol Or Drug Use No [email or web address] Information not available 01/18/2022 Does This Patient Have A PCP? Yes [email or web address] Information not available 01/18/2022 Is This Patient In Hospice? No [email or web address] Information not available 01/18/2022 We Know From Many Of Our Patients That Covering All Of Their Costs Can Be Difficult At Times. This Can Cause Stress And Impact Health. In The Past Year, Have You Been Unable To Get Any Of The Following When It Was Really Needed? No [email or web address] Information not available 01/18/2022 What Is Your Housing Situation Today? I Have Housing [email or web address] Information not available 01/18/2022 Would You Like Help Connecting To Resources? None [email or web address] Information not available 01/18/2022 Sex: Unknown Functional Status Question Answer Note LastModified by Organizat ion Details LastModified Time Do you use any illicit or recreational drugs? No [email or web address] Information not available 01/18/2022 What is your level of alcohol consumption? Occasional [email or web address] Information not available 01/18/2022 Mental Status None [...] ICD10 Code Diagnosis IMO Codes Diagnosis Note [id number] October FREDO Engel [facility] [address] [facility] [id number] 01/18/2022 13:08:34 01/19/2022 07:50:40 Surgical incision wound of skin [id number] R23.8 Health Concerns Section Related Observation LastModified by Organization Detai ls LastModified Time None Recorded Concern Status LastModified by Organization Details LastModified Time None Recorded Advance Directives Directive Y: Payers Insurance Date Sequence Insurance Name Policy Number Policy Ma Covered Member ID Ma Member ID Guarantor Name 01/18/2022 1 *SELF PAY* Andres Weiss [id number] Andres Weiss 02/02/2022 2 [place] [facility] Andres Weiss [id number] Andres Weiss 02/02/2022 1 MEDICARE B-[place] [employer] Andres Weiss [id number] Andres Weiss Notes Date Note Type Note Provider Name and Address Organization Details Recorded Time 01/18/2022 [email or web address] 66 YO M patient establishing care with . On 12/14 he had open heart surgery at [facility] the transferred to [facility] facility. His sternotomy surgical incision has healed well. However he has a left medial lower leg surgical incision which is draining clear fluid. He was seen by his regular staffing associate located in [place] Ramirez who did not assess his leg wound because it wasn't draining at the time . Clear drainage of surgical incision began yesterday at 4 p.m. [facility] contacted for assessment. It was a scab and then it came off . October FREDO Engel [address], [place], [address], [place] [facility] 01/30/2022 10:04:41
== END 2025-04-16 13:59 | disposition home or self-care (01) ==
LOC: HO.HUSH 13:18
PROVIDERS: PCP Internal Medicine; Visit Provider Urology
DX: N52.35 Erectile dysfunction following radiation therapy (principal); C61 Malignant neoplasm of prostate; C77.2 Secondary and unspecified malignant neoplasm of intra-abdominal lymph nodes
CPT/HCPCS: 99214; G2211

== ENCOUNTER 2025-04-22 10:45 | Outpatient (AMB) | payer OTHER, SELFPAY ==
[2025-04-22 10:51] LABS: Prothrombin Time Whole Bld POC 55.3 sec (11.1-13.5); ~PT, ~INR - Anti Coag Clinic 4.6 (0.9-1.1)
--- NOTE | 2025-04-22 10:54 | MHC.OFFVISCO ---
Intake Intake Visit Reasons: Anticoagulation Allergies No Known Allergies (No Known Allergies*) Allergy (Verified 04/22/25 10:46) Medication List - Last Reconciled 04/22/25 by Brissa Daniels RN acetaminophen 650 mg PO Q6H PRN atenolol 50 mg PO DAILY atorvastatin 40 mg PO BEDTIME [compression stockings knee-high 20 mmHg] darolutamide (Nubeqa) 300 mg PO BID furosemide 40 mg PO QAM lactulose 15 mL PO DAILY lisinopril 20 mg PO DAILY 90 days oxycodone-acetaminophen 5-325 mg 1 tab PO Q12H PRN 30 days potassium chloride ER (Klor-Con M) 20 mEq PO QAM warfarin 5 mg See Protocol PO DAILY 90 days Nursing Note INR: 4.6 out of therapeutic range of 2.5-3.0 Previous INR 4.0 04/16/25. Warfarin was held for 1 dose. Pt stopped eating grapes. Medications and supplements reviewed Patient status: pt states he feels well Medications or supplements: no changes Diet: could not determine diet as reason for increasing INR. Denies any signs and symptoms of bleeding or clotting or unusual bruising Bleeding, bruising, clotting discussed Nutritional guidance given: to increase greens this week. Pt is not a strong green eater. States he will have cucumbers with the peel on and pickles. Dose: hold dose X 2 days then 5mg daily F/U INR Date: 04/29/25?? Patient verbalizing understanding of instructions with read back given. Anti-Coag Initial Assessment Social Hx Patient Tobacco Use Status: Never used Tobacco alcohol intake: current Alcohol intake frequency: holidays/special occasions only Cardiovascular Hx: HTN, Arrhythmias and Cardiomyopathy Musculoskeletal Hx: Other Blood Disorder Hx: Hyperlipidemia Hx: Prostate Neurological Hx: Stroke/TIA Cancer HX: Yes (prostate) Psych. Illness/Depression: No Coding Level of Care Code Est Patient Level 1 Diagnoses Current use of anticoagulant therapy Z79.01 Assessment & Plan Assessment & Plan (1) Current use of anticoagulant therapy: Code(s): Z79.01 - long term care pharmacist (current) use of anticoagulants Category: Medical
--- OUTSIDE RECORDS SUMMARY | 2025-04-22 12:05 | XMS_ITS | Encounter Summary ---
Author Organization [facility] Address [address] [facility] [address] [place] [address] Care Team Providers Care Flat Folder Name Role Phone Barbara Valdivia MD Primary Care Provider [phone] Young Ramirez MD Unavailable [phone] Reason for Visit * Reason Comments Med Refill Encounter Details Date Type Department Care Team (Late st Contact Info) Description 01/21/2022 Refill [facility] Medical Surgical Unit [address] [place] [phone] Tunde Urias, [place] [address] [facility] [address] [place] [address] Severe mitral regurgitation Social History Tobacco Use [...] regurgitation documented in this encounter Care Teams Flat Folder Relationship Specialty Start Date End Date Barbara Valdivia MD [address] [place] [address] PCP - General 06/04/21 Young Ramirez MD [address]rd [place] [address] Tea Blender Cardiology 12/21/21 documented as of this encounter
--- OUTSIDE RECORDS SUMMARY | 2025-04-22 12:05 | XMS_ITS | Encounter Summary ---
Author Organization [facility] Address [address] [facility] [address] [place] [address] Care Team Providers Care Salvage Repairer Name Role Phone Barbara Valdivia MD Primary Care Provider [phone] Young Ramirez MD Unavailable [phone] Reason for Visit * Reason Comments Med Refill Encounter Details Date Type Department Care Team (Late st Contact Info) Description 06/21/2022 Refill [facility] Medical Surgical Unit [address] [place] [phone] Tunde Urias, [place] [address] [facility] [address] [place] [address] Severe mitral regurgitation Social History Tobacco Use [...] regurgitation documented in this encounter Care Teams Salvage Repairer Relationship Specialty Start Date End Date Barbara Valdivia MD [address] [facility] [address] [place] [address] PCP - General 06/04/21 Young Ramirez MD [address] [facility] 3rd [place] [address] Composition Board Press Operator Cardiology 12/21/21 documented as of this encounter
--- OUTSIDE RECORDS SUMMARY | 2025-04-22 12:05 | XMS_ITS | Clinical Summary ---
Author Organization [facility] Address [address] [facility] [place] [address] Care Team Providers Care Blanchard Grinder Operator Name Role Phone Barbara Valdivia MD Primary Care Provider Young Ramirez MD Unavailable [phone] Allergies No known active allergies Medications finasteride [...] this topic Medical Devices Implanted Type Area Supervisor Specialty Plant Device Identifier Shelf Expiration Date Model / Serial / Lot Family Medicine Resident-D Icd INSET CUTTER-D ICD Left: Chest [facility] Unknown [id number] Cardiac Pacemaker [employer] UNKNOWN / [id number] / Band Tri-Ad 2.0 Harper 34mm - [id number] - [id number] Implanted:Qty : 1 on 12/21/2021 by Cheo Cannon MD at [facility] Heart Valve Repair N/A: Chest [employer] PACING 01/25/2026 [id number] / [id number] / Device Ck Cor Knot - Sna - [id number] Implanted:Qty : 1 on 12/21/2021 by Cheo Cannon MD at [facility] Implant N/A: Chest [employer] 08/23/2023 [id number] / NA / Valve On-X Mitral 31/33mm W/St - [id number] - [id number] Implanted:Qty : 1 on 12/21/2021 by Cheo Cannon MD at [facility] Prosthetic Valve N/A: Heart [employer] 05/10/2027 ONXM-31/33 / [id number] / Patch Photofix 0.8x8cm - Sna - [id number] Implanted:Qty : 1 on 12/21/2021 by Cheo Cannon MD at [facility] Vascular Graft N/A: Aorta [employer] 07/25/2023 [id number] / NA / [id number] Procedures Procedure Name Priority Date/Time Associated Diagnosis [...] 1, stool (12/31/2021 11:03 AM EDT) Pathologist [facility] Date I MANUAL METHOD 12/31/2021 11:37 AM EDT [facility] Occult Blood Stool I Positive( A) Negative, No Sample Received MANUAL METHOD 12/31/2021 11:37 AM EDT [facility] Stool Rectal contents / Unknown Non-blood Collection / Unknown 12/31/2021 11:03 AM EDT 12/31/2021 11:07 AM EDT Cheo Cannon MD LAB BODY FLUIDS AND STOOLS ORDERABLES Final Result Performing Organization Address [facility] Co de Phone Number [facility] [address] [place] [address], * Hepatitis C antibody (12/29/2021 6:39 AM EDT) [facility] Hepatitis C antibody Non Reactive Non Reactive [facility] I2000 3 12/29/2021 10:58 AM EDT [facility] Comment:Antibodies to HCV no t detected; does not exclude the possibility of exposure to HCV. Blood Venous blood specimen / Unknown Venipuncture / Unknown 12/29/2021 6:39 AM EDT 12/29/2021 6:39 AM EDT Narrative [facility] - 12/29/2021 10:58 AM EDT The positive predictive value of this antibody test varies with the prevalence of Hepatitis C virus. Clinical confirmation of Hepatitis C using a qualitative Hepatitis C RNA determination may be indicated. [facility] LAB BLOOD ORDERABLES Final Re sult [facility] [address] [place] [address], [place] * Glucose, random (12/26/2021 4:19 AM EDT) [facility] Glucose 100 70 - 139 mg/dL 12/26/2021 5:30 AM EDT [facility] Fasting? Unknown 12/26/2021 5:30 AM EDT [facility] Blood Venous blood specimen / Unknown Venipuncture / Unknown 12/26/2021 4:19 AM EDT 12/26/2021 4:36 AM EDT us Cheo Cannon MD LAB BLOOD ORDERABLES Final Result Performing Organization Address City/[facility]/ZIP Co de Phone Number [facility] [address] [place] [address], * Lipid panel (12/15/2021 4:25 AM EDT) Triglycerides 62 <=150 mg/dL 12/15/2021 2:09 PM EDT [facility] Cholesterol 123 <=200 mg/dL 12/15/2021 2:09 PM EDT [facility] HDL cholesterol 42 >=40 mg/dL 2:09 PM EDT [facility] LDL cholesterol, calculated 69 0 - 130 mg/dL 12/15/2021 2:09 PM EDT [facility] Cholesterol/HDL Ratio 2.9 12/15/2021 2:09 PM EDT [facility] Blood Venous blood specimen / Unknown Venipuncture / Unknown 12/15/2021 4:25 AM EDT 12/15/2021 5:31 AM EDT us Pritesh Salinas MD LAB BLOOD ORDERABLES Final Re sult Performing Organization Address City/[facility] Co de Phone Number [facility] [address] [place] [address], from Last 3 Months or Most Recently Relevant to Health Maintenance Insurance MEDICARE PART A AND B MEDICAID STANDARD [employer] LONG-TERM OPTIONS Advance Directives Documents on File Type Date Recorded Patient Reprographics Technician Expl anation Health Care Proxy 06/27/2021 8:07 AM [facility] Healthcare Proxy ([facility] Soarian DM) Health Care Proxy 06/18/2021 3:10 PM [facility] Healthcare Proxy ([facility] Soarian DM) Advance Directives and Living Will 12/16/2021 Health Care Proxy * Full Code (Latest Code Status on File) Date Activated Date Inactivated Comments 12/21/2021 9:39 PM 01/01/2022 4:30 PM * Full Code Date Activated Date Inactivated Comments 12/14/2021 6:44 PM 12/21/2021 9:39 PM Care Teams Blanchard Grinder Operator Relationship Specialty Start Date End Date Barbara Valdivia MD [address] [place] [address] PCP - General 06/04/21 Young Ramirez MD [address] [place] [address] Supplier Quality Engineer Cardiology 12/21/21
--- OUTSIDE RECORDS SUMMARY | 2025-04-22 12:05 | XMS_ITS | Encounter Summary ---
Author Organization [facility] Address [address] [facility] [address] [place] [address] Care Team Providers Care Cutter Barrel Drum Name Role Phone Barbara Valdiiva MD Primary Care Provider [phone] Young Ramirez MD Unavailable [phone] Reason for Visit * Reason Comments Med Refill Encounter Details Date Type Department Care Team (Late st Contact Info) Description 12/19/[address] [facility] Medical Surgical Unit [address] [place] [phone] Tunde Urias, FLACO [address] [facility] [address] [place] [address] Severe mitral regurgitation Social History Tobacco Use [...] regurgitation documented in this encounter Care Teams Cutter Barrel Drum Relationship Specialty Start Date End Date Barbara Valdivia MD [address] [place] [address] PCP - General 06/04/21 Young Ramirez MD [address] [place] [address] Java Developer Cardiology 12/21/21 documented as of this encounter
--- OUTSIDE RECORDS SUMMARY | 2025-04-22 12:05 | XMS_ITS | Data Portability ---
Author Organization [place] [facility] Address [address] [place] [address] Care Team Providers Care Exhibition Organiser Name Role Phone SANGITA REID Primary Care Provider Assessment Encounter Date Assessment Date Assessment LastModified by Organization Details LastModified Time 01/18/2022 01/18/2022 66 YO M patient establishing care with . On 12/14 he had open heart surgery at [facility] the transferred to [facility] facility. His sternotomy surgical incision has healed well. However he has a left medial lower leg surgical incision which is draining clear fluid. He was seen by his regular self propelled hot mix roller operator located in [place] Ramirez who did not assess his [...] departure. Time On Scene with Patient: 01:11:41 [email or web address] Not available 01/18/2022 14:37:44 Plan of Treatment [...] By Organization Details Last Modified Time 01/18/2022 [id number] Thank you for yo ur visit with [facility] today. You were seen today for [...] in your condition between 8am-10pm, please call [facility] at [phone] to help navigate your care. 3 Not available 01/18/2022 13:18:22 Reason for Referral None Reported. Procedures Surgical History Date Name Laterality Status Provider Name and Address Organization Details Recorded Time open heart surgery completed October FREDO Engel [address], [place], [address], [place] [facility] 01/18/2022 13:26:42 Imaging Results [...] Time Tobacco Smoking Status Never Smoker October, MEDIA ARTS PROFESSOR [address], [place], [address], [place] [facility] 01/18/2022 13:24:50 Do You Have An Advance Directive? Yes [email or web address] Information not available 01/18/2022 Is Blood Transfusion Acceptable In An Emergency? Yes [email or web address] Information not available 01/18/2022 What Is Your Code Status? Full Code [email or web address] Information not available 01/18/2022 Within The Past 12 Months, Has It Happened That The Food You Bought Just Didn't Last And You Didn't Have Money To Get More. No [email or web address] Information not available 01/18/2022 Within The Past 12 Months, Have You Worried That Your Food Would Run Out Before You Got Money To Buy More. No [email or web address] Information not available 01/18/2022 Fall Risk: Do You Feel Unsteady When Standing Or Walking? No [email or web address] Information not available 01/18/2022 We Know That How And When People Interact With Friends And Family Can Be Very Different From Person To Person. How Often Do You Have The Opportunity To See Or Talk To People That You Care About And Feel Close To? (Ex: Talking To Friends On The Phone Or Visiting Friends Or Family Or Going To Sabianist Or Club Meetings) Choose Not To Answer This Question [email or web address] Information not available 01/18/2022 Excessive Alcohol Or Drug Use No [email or web address] Information not available 01/18/2022 Does This Patient Have A PCP? Yes [email or web address] Information not available 01/18/2022 Is This Patient In Hospice? No [email or web address] Information not available 01/18/2022 We Know From Many Of Our Patients That Covering All Of Their Costs Can Be Difficult At Times. This Can Cause Stress And Impact Health. In The Past Year, Have You Been Unable To Get Any Of The Following When It Was Really Needed? No [email or web address] Information not available 01/18/2022 What Is Your Housing Situation Today? I Have Housing [email or web address] Information not available 01/18/2022 Would You Like Help Connecting To Resources? None [email or web address] Information not available 01/18/2022 Sex: Unknown Functional Status Question Answer Note LastModified by Organizat ion Details LastModified Time Do you use any illicit or recreational drugs? No [email or web address] Information not available 01/18/2022 What is your level of alcohol consumption? Occasional [email or web address] Information not available 01/18/2022 Mental Status None [...] ICD10 Code Diagnosis IMO Codes Diagnosis Note [id number] October FREDO Engel [facility] [address] [facility] [id number] 01/18/2022 13:08:34 01/19/2022 07:50:40 Surgical incision wound of skin [id number] R23.8 Health Concerns Section Related Observation LastModified by Organization Detai ls LastModified Time None Recorded Concern Status LastModified by Organization Details LastModified Time None Recorded Advance Directives Directive Y: Payers Insurance Date Sequence Insurance Name Policy Number Policy Ma Covered Member ID Ma Member ID Guarantor Name 01/18/2022 1 *SELF PAY* Andres Weiss [id number] Andres Weiss 02/02/2022 2 [place]ID[place]: [facility] Andres Weiss [id number] Andres Weiss 02/02/2022 1 [place]IC[place] B-[place]: [email or web address] Andres Weiss [id number] Andres Weiss Notes Date Note Type Note Provider Name and Address Organization Details Recorded Time 01/18/2022 [email or web address] 66 YO M patient establishing care with . On 12/14 he had open heart surgery at [facility] the transferred to [facility] facility. His sternotomy surgical incision has healed well. However he has a left medial lower leg surgical incision which is draining clear fluid. He was seen by his regular self propelled hot mix roller operator located in [place] Ramirez who did not assess his leg wound because it wasn't draining at the time . Clear drainage of surgical incision began yesterday at 4 p.m. [facility] contacted for assessment. It was a scab and then it came off . October FREDO Engel [address], [place], [address], [place] [facility] 01/30/2022 10:04:41
--- OUTSIDE RECORDS SUMMARY | 2025-04-22 12:05 | XMS_ITS | Encounter Summary ---
Author Organization [facility] Address [address] [facility] [address] [place] [address] Care Team Providers Care Billing Analyst Name Role Phone Barbara Valdivia MD Primary Care Provider [phone] Young Ramirez MD Unavailable [phone] Reason for Visit * Reason Comments Med Refill Encounter Details Date Type Department Care Team (Late st Contact Info) Description 12/16/2022 Refill [facility] Medical Surgical Unit [address] [place] [phone] Tunde Urias, FLACO [address] [facility] [address] [place] [address] Severe mitral regurgitation Social History Tobacco Use [...] regurgitation documented in this encounter Care Teams Billing Analyst Relationship Specialty Start Date End Date Barbara Valdivia MD [address] [place] [address] PCP - General 06/04/21 Young Ramirez MD [address]rd [place] [address] Plate Molder Cardiology 12/21/21 documented as of this encounter
--- OUTSIDE RECORDS SUMMARY | 2025-04-22 12:05 | XMS_ITS | Clinical Summary ---
Author Organization [facility] Address [address] [place] [address] Phone Care Team Providers Care Youth Liaison Officer Name Role Phone Barbara Peterson MD Primary Care Provider [phone] Allergies No known active allergies Medications atenoloL [...] CHEMISTRY METHOD 09/01/2024 7:02 AM EDT [facility] BUN 15 5 - 25 mg/dL LAB CHEMISTRY METHOD 09/01/2024 7:02 AM [facility] Creatinine 0.91 0.70 - 1.30 mg/dL LAB CHEMISTRY METHOD 09/01/2024 7:02 AM EDT [facility] eGFR 92 >=60 mL/min/1. 73m2 LAB CHEMISTRY METHOD 09/01/2024 7:02 AM [facility] Comment:Calculation based on the Chronic Kidney Disease Epidemiology Collaboration (CKD-EPI) equation refit without adjustment for race. BUN/Creatinine Ratio 16.5 LAB CHEMISTRY METHOD 09/01/2024 7:02 AM [facility] Calcium 9.2 8.5 - 10.5 mg/dL LAB CHEMISTRY METHOD 09/01/2024 7:02 AM T [facility] Blood Venous blood specimen / Unknown Venipuncture / Unknown 09/01/2024 5:54 AM EDT 09/01/2024 6:07 AM EDT us Willam Jovel MD LAB BLOOD ORDERABLES Final Res ult [facility] [address] [place] [address], * Lipid panel with reflex to direct LDL (08/31/2024 8:36 AM EDT) Cholesterol 127 0 - 200 mg/dL LAB CHEMISTRY METHOD 08/31/2024 2:25 PM EDT [facility] Triglycerides 117 0 - 150 mg/dL LAB CHEMISTRY METHOD 08/31/2024 2:25 PM T [facility] HDL 61 >=40 mg/dL LAB CHEMISTRY METHOD 08/31/2024 2:25 PM EDT [facility] LDL Calculated 43 0 - 100 mg/dL LAB CHEMISTRY METHOD 08/31/2024 2:25 PM EDT [facility] VLDL Cholesterol Darren 23.4 mg/dL LAB CHEMISTRY METHOD 08/31/2024 2:25 PM EDT [facility] Non HDL Chol. (LDL+VLDL) 66 <145 mg/dL LAB CHEMISTRY METHOD 08/31/2024 2:25 PM EDT [facility] Chol/HDL Ratio 2.1 0.0 - 4.4 LAB CHEMISTRY METHOD 08/31/2024 2:25 PM EDT [facility] Blood Venous blood specimen / Unknown Venipuncture / Unknown 08/31/2024 8:36 AM EDT 08/31/2024 9:04 AM EDT us Willam Jovel MD LAB BLOOD ORDERABLES Final Res ult [facility] [address] [place] [address], from Last 3 Months or Most Recently Relevant to Health Maintenance Insurance [facility] Member Subscriber Plan / Payer (Ef fective 2022-Present) Name:Andres Weiss Relation to Subscriber:Self Name:Andres Weiss Payer ID:[id number] Group ID:[id number] Type:Not on file Address: [address] [facility] [place] [id number] [facility] MEDICARE Member Subscriber Plan / Payer (Ef fective 2022-Present) Name:Andres Weiss Relation to Subscriber:Self Name:Isela, Chepe Payer ID:[id number] Group ID:[id number] Type:Not on file Address: [address] [place] [id number] Advance Directives * Full Code - Default [...] currently active code status orders. Care Teams Youth Liaison Officer Relationship Specialty Start Date End Date Barbara Peterson MD [address] [facility] , [address] [place] [address] Physician Associ D/B/A: [facility] JASEN Perez PCP - General Internal Medicine 08/31/24
--- OUTSIDE RECORDS SUMMARY | 2025-04-22 12:05 | XMS_ITS | Encounter Summary ---
Author Organization [facility] Address [address] [facility] [address] [place] [address] Care Team Providers Care Director Consumer Affairs Name Role Phone Barbara Valdivia MD Primary Care Provider [phone] Young Ramirez MD Unavailable [phone] Reason for Visit * Reason Comments Med Refill Encounter Details Date Type Department Care Team (Late st Contact Info) Description 06/20/2023 Refill [facility] Medical Surgical Unit [address] [place] [phone] Tunde Urias, FLACO [address] [facility] [address] [place] [address] Severe mitral regurgitation Social History Tobacco Use [...] regurgitation documented in this encounter Care Teams Director Consumer Affairs Relationship Specialty Start Date End Date Barbara Valdivia MD [address] [place] [address] PCP - General 06/04/21 Young Ramirez MD [address] 3rd [place] [address] Melt Superintendant Cardiology 12/21/21 documented as of this encounter
== END 2025-04-22 11:05 | disposition home or self-care (01) ==
LOC: HO.ACS 10:45
PROVIDERS: PCP Internal Medicine; Visit Provider Internal Medicine Medical Oncology
DX: Z79.01 Long term (current) use of anticoagulants (principal)

== ENCOUNTER → 2025-04-22 10:45 | Outpatient (BNVA) | payer OTHER, SELFPAY | PROVIDERS: PCP Internal Medicine; Visit Provider Internal Medicine Medical Oncology | DX: Z79.01 Long term (current) use of anticoagulants (principal) | CPT/HCPCS: 85610; 99211 ==

== ENCOUNTER 2025-04-29 10:39 | Outpatient (AMB) | payer OTHER, SELFPAY ==
[2025-04-29 10:57] LABS: Prothrombin Time Whole Bld POC 33.6 sec (11.1-13.5); ~PT, ~INR - Anti Coag Clinic 2.8 (0.9-1.1)
--- NOTE | 2025-04-29 11:07 | MHC.OFFVISCO ---
Intake Intake Visit Reasons: Anticoagulation Allergies No Known Allergies (No Known Allergies*) Allergy (Verified 04/29/25 11:06) Medication List - Last Reconciled 04/29/25 by Brissa Daniels RN acetaminophen 650 mg PO Q6H PRN atenolol 50 mg PO DAILY atorvastatin 40 mg PO BEDTIME [compression stockings knee-high 20 mmHg] darolutamide (Nubeqa) 300 mg PO BID furosemide 40 mg PO QAM lactulose 15 mL PO DAILY lisinopril 20 mg PO DAILY 90 days oxycodone-acetaminophen 5-325 mg 1 tab PO Q12H PRN 30 days potassium chloride ER (Klor-Con M) 20 mEq PO QAM warfarin 5 mg See Protocol PO DAILY 90 days Nursing Note INR: 2.8 in therapeutic range of 2.5-3.0 Prev INR 4.6 Medications and supplements reviewed No changes in health, diet, medications, or supplements, Denies any signs and symptoms of bleeding or bruising or clotting. Bleeding, bruising, clotting discussed Nutritional guidance given Dose: resume usual dose of 5mg daily F/U INR: 4 weeks Patient verbalizes understanding of instructions given Anti-Coag Initial Assessment Social Hx Patient Tobacco Use Status: Never used Tobacco alcohol intake: current Alcohol intake frequency: holidays/special occasions only Cardiovascular Hx: HTN, Arrhythmias and Cardiomyopathy Musculoskeletal Hx: Other Blood Disorder Hx: Hyperlipidemia Hx: Prostate Neurological Hx: Stroke/TIA Cancer HX: Yes (prostate) Psych. Illness/Depression: No Coding Level of Care Code Est Patient Level 1 Diagnoses Current use of anticoagulant therapy Z79.01 Assessment & Plan Assessment & Plan (1) Current use of anticoagulant therapy: Code(s): Z79.01 - exterminator termite (current) use of anticoagulants Category: Medical
--- OUTSIDE RECORDS SUMMARY | 2025-04-29 14:16 | XMS_ITS | Encounter Summary ---
Author Organization [facility] Address [address] [facility] [address] [place] [address] Care Team Providers Care Mercantile Reporter Name Role Phone Barbara Valdivia MD Primary Care Provider [phone] Young Ramirez MD Unavailable [phone] Reason for Visit * Reason Comments Med Refill Encounter Details Date Type Department Care Team (Late st Contact Info) Description 01/21/2022 Refill [facility] Medical Surgical Unit [address] [place] [phone] Tunde Urias, FLACO [address] [facility] [address] [place] [address] Severe mitral regurgitation Social History Tobacco Use [...] regurgitation documented in this encounter Care Teams Mercantile Reporter Relationship Specialty Start Date End Date Barbara Valdivia MD [address] [place] [address] PCP - General 06/04/21 Young Ramirez MD [address] [place] [address] Steel Detailer Cardiology 12/21/21 documented as of this encounter
--- OUTSIDE RECORDS SUMMARY | 2025-04-29 14:16 | XMS_ITS | Encounter Summary ---
Author Organization [facility] Address [address] [facility] [address] [place] [address] Care Team Providers Care Glass Block Installer Name Role Phone Barbara Valdivia MD Primary Care Provider [phone] Young Ramirez MD Unavailable [phone] Reason for Visit * Reason Comments Med Refill Encounter Details Date Type Department Care Team (Late st Contact Info) Description 06/21/2022 Refill [facility] Medical Surgical Unit [address] [place] [phone] Tunde Urias, FLACO [address] [facility] [address] [place] [address] Severe mitral regurgitation Social History Tobacco Use [...] regurgitation documented in this encounter Care Teams Glass Block Installer Relationship Specialty Start Date End Date Barbara Valdivia MD [address] [place] [address] PCP - General 06/04/21 Young Ramirez MD [address]rd [place] [address] Senior Product Engineer Cardiology 12/21/21 documented as of this encounter
--- OUTSIDE RECORDS SUMMARY | 2025-04-29 14:17 | XMS_ITS | Encounter Summary ---
Author Organization [facility] Address [address] [facility] [address] [place] [address] Care Team Providers Care Service Center Coordinator Name Role Phone Barbara Valdivia MD Primary Care Provider [phone] Young Ramirez MD Unavailable [phone] Reason for Visit * Reason Comments Med Refill Encounter Details Date Type Department Care Team (Late st Contact Info) Description 12/19/2022 Refill [facility] Medical Surgical Unit [address] [place] [phone] Tunde Urias, FLACO [address] [facility] [address] [place] [address] Severe mitral regurgitation Social History Tobacco Use [...] regurgitation documented in this encounter Care Teams Service Center Coordinator Relationship Specialty Start Date End Date Barbara Valdivia MD [address] [place] [address] PCP - General 06/04/21 Young Ramirez MD [address]rd [place] [address] Performing Artist Cardiology 12/21/21 documented as of this encounter
--- OUTSIDE RECORDS SUMMARY | 2025-04-29 14:17 | XMS_ITS | Clinical Summary ---
Author Organization [facility] Address [address] [place] [address] Care Team Providers Care Polyethylene Combiner Name Role Phone Barbara Valdivia MD Primary Care Provider [phone] Young Ramirez MD Unavailable [phone] Allergies No known active allergies Medications finasteride [...] this topic Medical Devices Implanted Type Area Engineering Teacher Device Identifier Shelf Expiration Date Model / Serial / Lot Curriculum And Assessment Coordinator-D Icd RECORDS MANAGEMENT ANALYST-D ICD Left: Chest [employer] Unknown [id number] Cardiac Pacemaker [employer] UNKNOWN / [id number] / Band Tri-Ad 2.0 Harper 34mm - [id number] - [id number] Implanted:Qty : 1 on 12/21/2021 by Cheo Cannon MD at [facility] Heart Valve Repair N/A: Chest [employer] PACING 01/25/2026 [id number] / [id number] / Device Ck Cor Knot - Sna - [id number] Implanted:Qty : 1 on 12/21/2021 by Cheo Cannon MD at [facility] Implant N/A: Chest [employer] 08/23/2023 [id number] / NA / Valve On-X Mitral 31/33mm W/St - [id number] - [id number] Implanted:Qty : 1 on 12/21/2021 by Cheo Cannon MD at [facility] Prosthetic Valve N/A: Heart [employer] 05/10/2027 [id number]-31/33 / [id number] / Patch Photofix 0.8x8cm - Sna - [id number] Implanted:Qty : 1 on 12/21/2021 by Cheo Cannon MD at [facility] Vascular Graft N/A: Aorta [employer] 07/25/2023 [id number] / NA / [id number] Procedures Procedure Name Priority Date/Time Associated Diagnosis [...] 1, stool (12/31/2021 11:03 AM EDT) Pathologist [facility] Date I MANUAL METHOD 12/31/2021 11:37 AM EDT [facility] Occult Blood Stool I Positive( A) Negative, No Sample Received MANUAL METHOD 12/31/2021 11:37 AM EDT [facility] Stool Rectal contents / Unknown Non-blood Collection / Unknown 12/31/2021 11:03 AM EDT 12/31/2021 11:07 AM EDT Cheo Cannon MD LAB BODY FLUIDS AND STOOLS ORDERABLES Final Result Performing Organization Address [facility] Co de Phone Number [facility] [address] [place] [address], * Hepatitis C antibody (12/29/2021 6:39 AM EDT) [facility] Hepatitis C antibody Non Reactive Non Reactive [facility] ARCH I2000 3 12/29/2021 10:58 AM EDT [facility] Comment:Antibodies to HCV no t detected; does not exclude the possibility of exposure to HCV. Blood Venous blood specimen / Unknown Venipuncture / Unknown 12/29/2021 6:39 AM EDT 12/29/2021 6:39 AM EDT Narrative [facility] - 12/29/2021 10:58 AM EDT The positive predictive value of this antibody test varies with the prevalence of Hepatitis C virus. Clinical confirmation of Hepatitis C using a qualitative Hepatitis C RNA determination may be indicated. [facility] LAB BLOOD ORDERABLES Final Re sult [facility] [address] [place] [address], [place] * Glucose, random (12/26/2021 4:19 AM EDT) [facility] Glucose 100 70 - 139 mg/dL 12/26/2021 5:30 AM EDT [facility] Fasting? Unknown 12/26/2021 5:30 AM EDT [facility] Blood Venous blood specimen / Unknown Venipuncture / Unknown 12/26/2021 4:19 AM EDT 12/26/2021 4:36 AM EDT us Cheo Cannon MD LAB BLOOD ORDERABLES Final Result Performing Organization Address City/[facility]/ZIP Co de Phone Number [facility] [address] [place] [address], * Lipid panel (12/15/2021 4:25 AM EDT) Triglycerides 62 <=150 mg/dL 12/15/2021 2:09 PM EDT [facility] Cholesterol 123 <=200 mg/dL 12/15/2021 2:09 PM EDT [facility] HDL cholesterol 42 >=40 mg/dL 2:09 PM EDT [facility] LDL cholesterol, calculated 69 0 - 130 mg/dL 12/15/2021 2:09 PM EDT [facility] Cholesterol/HDL Ratio 2.9 12/15/2021 2:09 PM EDT [facility] Blood Venous blood specimen / Unknown Venipuncture / Unknown 12/15/2021 4:25 AM EDT 12/15/2021 5:31 AM EDT us Pritesh Salinas MD LAB BLOOD ORDERABLES Final Re sult Performing Organization Address City/[facility] Co de Phone Number [facility] [address] [place] [address], from Last 3 Months or Most Recently Relevant to Health Maintenance Insurance MEDICARE PART A AND B MEDICAID [employer] Advance Directives Documents on File Type Date Recorded Patient Incubator Machine Operator Expl anation Health Care Proxy 06/27/2021 8:07 AM Conve [facility] Healthcare Proxy ([facility] Soarian DM) Health Care Proxy 06/18/2021 3:10 PM Conve [facility] Healthcare Proxy ([facility] Soarian DM) Advance Directives and Living Will 12/16/2021 Health Care Proxy * Full Code (Latest Code Status on File) Date Activated Date Inactivated Comments 12/21/2021 9:39 PM 01/01/2022 4:30 PM * Full Code Date Activated Date Inactivated Comments 12/14/2021 6:44 PM 12/21/2021 9:39 PM Care Teams Polyethylene Combiner Relationship Specialty Start Date End Date Barbara Valdivia MD [address] [place] [address] PCP - General 06/04/21 Young Ramirez MD [address] [place] [address] Guest Services Lead Cardiology 12/21/21
--- OUTSIDE RECORDS SUMMARY | 2025-04-29 14:17 | XMS_ITS | Clinical Summary ---
Author Organization [facility] Address [address] [place] [address] Phone Care Team Providers Care Housekeeper Manager Name Role Phone Barbara Peterson MD Primary Care Provider [phone] Allergies No known active allergies Medications atenoloL [...] 11 LAB CHEMISTRY METHOD 09/01/2024 7:02 AM [facility] Glucose 110(H) 70 - 100 mg/dL LAB CHEMISTRY METHOD 09/01/2024 7:02 AM EDT [facility] BUN 15 5 - 25 mg/dL LAB CHEMISTRY METHOD 09/01/2024 7:02 AM [facility] Creatinine 0.91 0.70 - 1.30 mg/dL LAB CHEMISTRY METHOD 09/01/2024 7:02 AM EDT [facility] eGFR 92 >=60 mL/min/1. [...] 7:02 AM T [facility] Blood Venous blood specimen / Unknown Venipuncture / Unknown 09/01/2024 5:54 AM EDT 09/01/2024 6:07 AM EDT us Willam Jovel MD LAB BLOOD ORDERABLES Final Res ult [facility] [address] [place] [address], * Lipid panel with reflex to direct LDL (08/31/2024 8:36 AM EDT) Cholesterol 127 0 - 200 mg/dL LAB CHEMISTRY METHOD 08/31/2024 2:25 PM EDT [facility] Triglycerides 117 0 - 150 mg/dL LAB CHEMISTRY METHOD 08/31/2024 2:25 PM T [facility] HDL 61 >=40 [...] Res ult [facility] [address] [place] [address], from Last 3 Months or Most Recently Relevant to Health Maintenance Insurance [facility] Member Subscriber Plan / Payer (Ef fective 2022-Present) Name:Andres Weiss Relation to Subscriber:Self Name:Andres Weiss Payer ID:[id number] Group ID:[id number] Type:Not on file Address: [place] [facility] [place] [address] [facility] MEDICARE Member Subscriber Plan / Payer (Ef fective 2022-Present) Name:Andres Weiss Relation to Subscriber:Self Name:Isela, Chepe Payer ID:[id number] Group ID:[id number] Type:Not on file Address: [address] [place] [address] Advance Directives * Full Code - Default [...] currently active code status orders. Care Teams Housekeeper Manager Relationship Specialty Start Date End Date Barbara Peterson MD [address] [facility] , [address] [place] [address] Physician Associ D/B/A: [facility] JASEN Perez PCP - General Internal Medicine 08/31/24
--- OUTSIDE RECORDS SUMMARY | 2025-04-29 14:17 | XMS_ITS | Encounter Summary ---
Author Organization [facility] Address [address] [place] [address] Care Team Providers Care Director Speech Name Role Phone Barbara Valdivia MD Primary Care Provider [phone] Young Ramirez MD Unavailable [phone] Reason for Visit * Reason Comments Med Refill Encounter Details Date Type Department Care Team (Late st Contact Info) Description 12/16/2022 Refill [facility] [address] [place] [id number] Tunde Urias, [place]AC[place] [address] [facility] [address] [place] [address] Severe mitral regurgitation Social History Tobacco Use [...] documented in this encounter Care Teams Director Speech Relationship Specialty Start Date End Date Barbara Valdivia MD [address] [place] [address] PCP - General 06/04/21 Young Ramirez MD [address] [place] [address] Intern Product Marketing Manager Cardiology 12/21/21 documented as of this encounter
--- OUTSIDE RECORDS SUMMARY | 2025-04-29 14:17 | XMS_ITS | Encounter Summary ---
Author Organization [facility] Address [address] [facility] [facility] [address] [place] [address] Care Team Providers Care Service Worker Helper Name Role Phone Barbara Valdivia MD Primary Care Provider [phone] Young Ramirez MD Unavailable [phone] Reason for Visit * Reason Comments Med Refill Encounter Details Date Type Department Care Team (Late st Contact Info) Description 06/20/2023 Refill [facility] [address] [place] [phone] Tunde Urias, [place] [address] [facility] [address] [place] [address] Severe mitral regurgitation Social History Tobacco Use [...] documented in this encounter Care Teams Service Worker Helper Relationship Specialty Start Date End Date Barbara Valdivia MD [address] [place] [address] PCP - General 06/04/21 Young Ramirez MD [address] [place] [address] Home Based Assistant Cardiology 12/21/21 documented as of this encounter
== END 2025-04-29 11:31 | disposition home or self-care (01) ==
LOC: HO.ACS 10:39
PROVIDERS: PCP Internal Medicine; Visit Provider Internal Medicine Medical Oncology
DX: Z79.01 Long term (current) use of anticoagulants (principal)

== ENCOUNTER → 2025-04-29 10:39 | Outpatient (BNVA) | payer OTHER, SELFPAY | PROVIDERS: PCP Internal Medicine; Visit Provider Internal Medicine Medical Oncology | DX: Z95.2 Presence of prosthetic heart valve (principal); Z51.81 Encounter for therapeutic drug level monitoring; Z79.01 Long term (current) use of anticoagulants | CPT/HCPCS: 85610; 99211 ==